=== PATIENT | female | born 1955 | race Caucasian/White ===

== ENCOUNTER 2022-11-17 09:19 | Outpatient (OUT) | payer MEDICARE, SELFPAY ==
--- NOTE | 2022-11-17 09:45 | CT_ITS ---
[address] [address] Patient Name: NATASHA BUNN MRN: [id number] date: 1955 Sex: F Assigned Patient Location: CT Current Patient Location: CT Accession/Order Number: [id number] Exam Date: 11/17/2022 09:40 Report Date: 11/17/2022 10:29 At the request of: BERLIN DERAS Procedure: CT lung screening low-dose EXAMINATION: CT lung screening low-dose HISTORY: Personal History Of Nicotine Dependence Z87.891 COMPARISON: No relevant comparison available. TECHNIQUE: Axial, Coronal, and Sagittal images were created without the administration of IV contrast material. Dose reduction techniques were achieved by using automated exposure control and/or adjustment of mA and/or kV according to patient size and/or use of iterative reconstruction technique. FINDINGS: LUNGS: Numerous small geographic shaped opacities scattered within bilateral lower lobe; nodules versus infiltrates; largest is within right lower lobe posterior segment, 11 mm. PLEURA: No mass, effusion, or pneumothorax. VASCULATURE: No abnormality. MIKE: No mass or pathologic adenopathy. MEDIASTINUM: No mass or pathologic adenopathy. CARDIAC: No enlargement, pericardial thickening, or significant calcification. AORTA: No aneurysm or dissection. CHEST WALL: No mass or axillary adenopathy BONES: No bone lesion or fracture. LIMITED ABDOMEN: Prior gastric surgery. Limited images of the upper abdomen. OTHER: Negative. CT/CT lung screening low-dose IMPRESSION: 1. Lung-RADS Category 3- Probably benign. Probably benign finding(s)- short term follow up suggested; includes nodules with a low likelihood of becoming a clinically active cancer. Six month LDCT. 2. Numerous small opacities within lower lobes which may represent infectious infiltrates, but neoplasm cannot be excluded. Consider follow-up CT chest in one-2 months to document clearing if clinical symptoms are suspicious for infectious infiltrates. The majority of the opacities are below limits for PET imaging, however, the larger opacities would be amenable to PET imaging if high clinical suspicion. Electronically authenticated by: AMANDA NAGEL Date: 11/17/2022 10:29
== END 2022-11-17 09:20 | disposition home or self-care (01) ==
LOC: CT 09:19
PROVIDERS: PCP Family Medicine; Visit Provider Internal Medicine
DX: Z87.891 Personal history of nicotine dependence (principal); Z12.2 Encounter for screening for malignant neoplasm of respiratory organs
CPT/HCPCS: 71271

== ENCOUNTER 2023-01-22 09:53 | Outpatient (OUT) | payer MEDICARE, SELFPAY ==
--- NOTE | 2023-01-22 10:08 | CT_ITS ---
[address] [address] Patient Name: NATASHA BUNN MRN: [id number] date: 1955 Sex: F Assigned Patient Location: CT Current Patient Location: Accession/Order Number: [id number] Exam Date: 01/22/2023 10:13 Report Date: 01/23/2023 00:29 At the request of: BERLIN DERAS Procedure: CT chest wo con EXAMINATION: CT chest wo con HISTORY: Multiple Pulmonary R91.8 follow-up COMPARISON: CT lung cancer screening 11/17/2022 TECHNIQUE: Multi-planar CT images were obtained without and/or with IV contrast as indicated by examination type. Axial, Coronal, and Sagittal images. Dose reduction techniques were achieved by using automated exposure control and/or adjustment of mA and/or kV according to patient size and/or use of iterative reconstruction technique. FINDINGS: LUNGS: Clearing of previously seen patchy opacities/infiltrates bilaterally. No suspicious nodules. Biapical pleural scarring. PLEURA: No mass, effusion, or pneumothorax. VASCULATURE: No abnormality. MIKE: No mass or adenopathy. MEDIASTINUM: No mass or adenopathy. CARDIAC: No enlargement, pericardial thickening, or significant calcification. AORTA: No aneurysm or dissection. CHEST WALL: No mass or axillary adenopathy. BONES: No bone lesion or fracture. LIMITED ABDOMEN: Prior gastric surgery. Limited images of the upper abdomen. OTHER: Negative. CT/CT chest wo con IMPRESSION: 1. Clearing of previously seen bilateral pulmonary opacities suggesting prior infectious etiology. 2. No suspicious nodules. Consider follow-up CT lung cancer screening in one year. Electronically authenticated by: AMANDA NAGEL Date: 01/23/2023 00:29
== END 2023-01-22 09:54 | disposition home or self-care (01) ==
LOC: CT 09:53
PROVIDERS: PCP Family Medicine; Visit Provider Internal Medicine
DX: R91.8 Other nonspecific abnormal finding of lung field (principal); Z87.891 Personal history of nicotine dependence
CPT/HCPCS: 71250

== ENCOUNTER 2023-10-17 14:29 | Outpatient (OUT) | payer MEDICARE, SELFPAY ==
--- NOTE | 2023-10-17 | XR_ITS ---
The [address] [address] Patient Name: NATASHA BUNN MRN: [id number] date: 1955 Sex: F Assigned Patient Location: Current Patient Location: Accession/Order Number: [id number] Exam Date: 10/17/2023 14:30 Report Date: 10/18/2023 07:32 At the request of: LETTY FRAZIER Procedure: XR foot LT min 3V PROCEDURE: XR foot LT min 3V COMPARISON: 10/09/2023 HISTORY: LEFT FOOT PAIN FINDINGS: BONES:Again demonstrated are transverse extra-articular fractures proximal diaphysis of the second and third metatarsals. Focal sclerosis identified in the neck of the second metatarsal with a narrow zone of transition no cortical breakthrough or periosteal reaction. SOFT TISSUES:Negative. No visible soft tissue swelling. EFFUSION:None visible. OTHER: Negative. XR/XR foot LT min 3V IMPRESSION: Stable nondisplaced nonangulated extra-articular transverse fractures base of the second and third metatarsals Electronically authenticated by: SRAVANI SAWYER Date: 10/18/2023 07:32
== END 2023-10-17 14:30 | disposition home or self-care (01) ==
LOC: EC 14:29
PROVIDERS: PCP Family Medicine; Visit Provider Podiatrist Foot & Ankle Surgery
DX: M79.672 Pain in left foot (principal); S92.325D Nondisplaced fracture of second metatarsal bone, left foot, subsequent encounter for fracture with routine healing; S92.335D Nondisplaced fracture of third metatarsal bone, left foot, subsequent encounter for fracture with routine healing
CPT/HCPCS: 73630

== ENCOUNTER 2023-11-06 10:00 | Outpatient (OUT) | payer MEDICARE, SELFPAY ==
--- NOTE | 2023-11-06 | XR_ITS ---
[address] [address] Patient Name: NATASHA BUNN MRN: [id number] date: 1955 Sex: F Assigned Patient Location: Current Patient Location: Accession/Order Number: [id number] Exam Date: 11/06/2023 10:33 Report Date: 11/06/2023 15:35 At the request of: LETTY FRAZIER Procedure: XR ankle LT min 3V PROCEDURE: XR ankle LT min 3V, XR foot LT min 3V COMPARISON:10/17/23, 10/09/2023 HISTORY: LEFT ANKLE PAIN FINDINGS: BONES:Stable fracture of the distal fibula with partial bony bridging. No change in angulation or distraction. Stable healing transverse extra-articular fractures base of the second and third metatarsals with interval healing evidenced by bone formation. Focal sclerosis in the medial neck of the second metatarsal is stable with no cortical breakthrough. SOFT TISSUES:Negative. No visible soft tissue swelling. EFFUSION:None visible. OTHER: Negative. XR/XR ankle LT min 3V IMPRESSION: Stable healing fractures of the distal fibula and base of the second and third metatarsals Electronically authenticated by: SRAVANI SAWYER Date: 11/06/2023 15:35
--- NOTE | 2023-11-06 | XR_ITS ---
[address] [address] Patient Name: NATASHA BUNN MRN: [id number] date: 1955 Sex: F Assigned Patient Location: Current Patient Location: Accession/Order Number: [id number] Exam Date: 11/06/2023 10:25 Report Date: 11/06/2023 15:35 At the request of: LETTY FRAZIER Procedure: XR foot LT min 3V PROCEDURE: XR ankle LT min 3V, XR foot LT min 3V COMPARISON:10/17/23, 10/09/2023 HISTORY: LEFT ANKLE PAIN FINDINGS: BONES:Stable fracture of the distal fibula with partial bony bridging. No change in angulation or distraction. Stable healing transverse extra-articular fractures base of the second and third metatarsals with interval healing evidenced by bone formation. Focal sclerosis in the medial neck of the second metatarsal is stable with no cortical breakthrough. SOFT TISSUES:Negative. No visible soft tissue swelling. EFFUSION:None visible. OTHER: Negative. XR/XR foot LT min 3V IMPRESSION: Stable healing fractures of the distal fibula and base of the second and third metatarsals Electronically authenticated by: SRAVANI SAWYER Date: 11/06/2023 15:35
--- OUTSIDE RECORDS SUMMARY | 2023-11-06 10:09 | XMS_ITS | CCD ---
Author Organization [facility] Clini[facility] Care Team Providers Care Die Cast Patternmaker Name Role Phone Linette Desai Primary Care Provider Unavailable Unavailable Unavailable Linette Desai DO Primary Care Provider [phone] BERLIN DERAS Attending Unavailable BERLIN DERAS Consulting Unavailable BERLIN DERAS Admitting Unavailable DR SRAVANI GAMEZ Primary Care Unavailable Linette Desai DO Primary Care Provider [phone] Linette Desai DO Primary Care Provider [phone] Linette Desai DO Primary Care Provider Rick Amin MD Primary Care Provider RICK AMIN Primary Care Unavailable AHMAD, ALI F O Referring Unavailable LINETTE DESAI Primary Care Unavailable LINETTE DESAI Referring Unavailable CONSDORYS, JOSE ANGEL Tommie Referring Unavailable AMIN, RICK Primary Care Unavailable AMIN, RICK Primary Care Unavailable AHMAD, ALI F O Referring Unavailable AMIN, RICK Primary Care Unavailable AHMAD, ALI F O Referring Unavailable CONSOLO, JOSE ANGEL W Referring Unavailable AMIN, RICK Primary Care Unavailable CONSOLO, JOSE ANGEL W Referring Unavailable AMIN, RICK Primary Care Unavailable CONSOLO, JOSE ANGEL W Referring Unavailable AMIN, RICK Primary Care Unavailable AMIN, RICK Primary Care Unavailable AHMAD, ALI F O Referring Unavailable AMIN, RICK Primary Care Unavailable AMIN, RICK Referring Unavailable CONSOLO, JOSE ANGEL W Referring Unavailable AMIN, RICK Primary Care Unavailable CONSOLO, JOSE ANGEL W Referring Unavailable AMIN, RICK Primary Care Unavailable AMIN, RICK Primary Care Unavailable AHMAD, ALI F O Referring Unavailable RUSSELL HOBSON Admitting Unavailable RUSSELL HOBSON Attending Unavailable LINETTE DESAI Primary Care Unavailable RUSS BERGERON Attending Unavailable LINETTE DESAI Primary Care Unavailable ELOISARICK Primary Care Unavailable DEL BALDWIN Referring Unavailable RICK AMIN Primary Care Unavailable MONIQUE PAZ Referring Unavailable LINETTE DESAI Primary Care Unavailable LINETTE DESAI Referring Unavailable Allergies Allergy Classification Reported Allergen(s) Allergy Type Date of Onset Reaction(s) Facility denosumab (3 sources) denosumab Drug Allergy 9 Other (See Comments) [facility] Macrolides (antibiotic) (3 sources) Azithromycin Drug Allergy 9 [facility] zoledronic acid (3 sources) zoledronic acid Drug Allergy 9 Other (See Comments) [facility] (20 sources) Azithromycin Drug Allergy 9 [place], [place] (20 sources) denosumab Drug Allergy 9 Other (See Comments) [place] (20 sources) zoledronic acid Drug Allergy 9 Other (See Comments) [place] (1 source) Azithromycin Drug Allergy 9 [facility] (1 source) denosumab Drug Allergy 0 [facility] (1 source) zoledronic acid Drug Allergy 1 [facility] Medications Current Medications Medication Drug Class(es) Dates Sig (Normalized) Sig (Original) acetaminophen 300 mg / butalbital 50 mg / caffeine 40 mg oral capsule (20 sources) Barbiturate, Central Nervous System Stimulant, Methylxanthine Start: 09-05-2023 take 1 capsule by mouth every eight hours Butalbital-Aceta minophen-Caff (Fioricet) 50-300-40 mg capsule Active 1 CAP PO Every 8 hours September 05, 2023 12:00am take 1 tablet by bandar th every four hours as needed for headache gfnitduopv-qyrnabyhzzlbk-qxurqtyu (JEROD CET, ESGIC) 50-325-40 MG per tablet Take 1 tablet by mouth every 4 hours as needed for Headaches 0 Active acetaminophen 325 mg / HYDROcodone bitartrate 5 mg oral tablet (20 sources) Opioid Agonist Start: 10-10-2021 take 1 tablet by mouth twice daily as needed for pain HYDROcodone-acetaminophen (NORCO) 5-325 MG per tablet Take 1 tablet by mouth 2 times daily as needed for Pain. 0 10/10/2021 Active Start: 10-10-2021 HYDROcodone-ac etaminophen (NORCO) 5-325 MG per tablet take 1 tablet by bandar th every six hours as needed for pain HYDROcodone-acetaminophen (NORCO) 5-325 MG per tablet Take 1 tablet by mouth every 6 hours as needed for Pain. 0 Active [id number] 200 actuat albuterol 0.09 mg/actuat metered dose inhaler (20 sources) beta2-Adrenergic Agonist take 2 puff(s) by inhalation every six hours as needed for wheezing albuterol sulfate HFA (PROVENTIL;VENTOLIN;PROAIR) 108 (90 Base) MCG/ACT inhaler Inhale 2 puffs into the lungs every 6 hours as needed for Wheezing 0 Active take 2 puff(s) by in halation every six hours as needed for wheezing albuterol sulfate HFA (PROAIR HFA) 108 (90 Base) MCG/ACT inhaler Inhale 2 puffs into the lungs every 6 hours as needed for Wheezing 0 Active alendronic acid 70 mg oral tablet (17 sources) Bisphosphonate Start: 09-05-2023 take 1 tablet by mouth every week Alendronate (Fosamax) 70 mg tablet Active 70 MG PO every week September 05, 2023 12:00am alendronate (FOS AMAX) 70 MG tablet Take 1 tablet by mouth every 7 days Mondays 0 Active amitriptyline hydrochloride 50 mg oral tablet (20 sources) Tricyclic Antidepressant Start: 09-04-2018 take 1 tablet by mouth once daily amitriptyline (ELAVIL) 50 MG tablet Take 1 tablet by mouth nightly 0 09/04/2018 Active atorvastatin 10 mg oral tablet (14 sources) HMG-CoA Reductase Inhibitor Start: 07-08-2018 atorvastatin (LIPITOR) 10 MG tablet betamethasone 0.5 mg/ml / clotrimazole 10 mg/ml topical cream (15 sources) Azole Antifungal, Corticosteroid Start: 09-09-2021 clotrimazole-betame thasone (LOTRISONE) 1-0.05 % cream cholecalciferol 0.125 mg oral capsule (1 source) Vitamin D Start: 09-05-2023 take 125 ug by mouth once daily Cholecalciferol (Vitamin D3) Active 125 MCG PO Daily September 05, 2023 12:00am cyclobenzaprine hydrochloride 10 mg oral tablet (20 sources) Muscle Relaxant Start: 08-10-2018 take 1 tablet by mouth once daily cyclobenzaprine (FLEXERIL) 10 MG tablet Take 1 tablet by mouth daily 0 08/10/2018 Active DULoxetine 60 mg delayed release oral capsule (20 sources) Serotonin and Norepinephrine Reuptake Inhibitor Start: 09-05-2023 take 1 capsule by mouth once daily Duloxetine (Cymbalta) 60 mg capsule,delayed release(DR/EC) Active 60 MG PO Daily September 05, 2023 12:00am take 1 capsule by mouth once michaela ly DULoxetine (CYMBALTA) 20 MG extended release capsule Take 1 capsule by mouth daily 0 Active ergocalciferol 1.25 mg oral capsule (20 sources) Provitamin D2 Compound take 1 capsule by mouth every other week vitamin D (ERGOCALCIFEROL) 80744 UNITS CAPS capsule Take 1 capsule by mouth Ever 2 weeks 0 Active escitalopram 10 mg oral tablet (4 sources) Serotonin Reuptake Inhibitor Start: take 1 tablet by mouth once daily escitalopram (LEXAPRO) 10 MG tablet Take 1 tablet by mouth daily 90 tablet 1 10/03/2023 Active fluticasone propionate 0.05 mg/actuat metered dose nasal spray (1 source) Corticosteroid Start: take 1 spray(s) nasal route once daily Fluticasone Propionate (Flonase Allergy Relief) 50 mcg/actuation spray,suspension Active 1 SPRAY INTRANASAL Daily September 05, 2023 12:00am administer into each nostril gabapentin 300 mg oral capsule (19 sources) Anti-epileptic Agent Start: End: take 300 mg by mouth three times daily Gabapentin Active 300 MG PO Three times daily September 05, 2023 12:00am montelukast 10 mg oral tablet (7 sources) Leukotriene Receptor Antagonist take 1 tablet by mouth once daily montelukast (SINGULAIR) 10 MG tablet Take 10 mg by mouth daily 0 Active omeprazole 20 mg delayed release oral capsule (20 sources) Proton Pump Inhibitor Start: take 20 mg by mouth once daily Omeprazole Active 20 MG PO Daily September 05, 2023 12:00am omeprazole (PRIL OSEC) 20 MG capsule Indications: Pt states she takes it as needed Take 1 capsule by mouth as needed Indications: Pt states she takes it as needed 0 Active Sod Citrate-Citric Acid (CYTRA-2 PO) (4 sources) Sod Citrate-Citr ic Acid (CYTRA-2 PO) Take 20 mg by mouth daily. 0 Active SUMAtriptan 50 mg oral tablet (20 sources) Serotonin-1b and Serotonin-1d Receptor Agonist Start: 09-05-2023 Sumatriptan Succinate Active 50 MG PO Every 2 hours September 05, 2023 12:00am do not exceed 4 doses per 24 hrs Start: 01-02-2023 take 1 tablet by bandar th twice daily as needed SUMAtriptan (IMITREX) 50 MG tablet Take 1 tablet by mouth 2 times daily as needed 0 01/02/2023 Active take 1 tablet by bandar th once as needed SUMAtriptan (IMITREX) 100 MG tablet Take 100 mg by mouth once as needed for Migraine 0 Active 30 actuat umeclidinium 0.0625 mg/actuat / vilanterol 0.025 mg/actuat dry powder inhaler (9 sources) Anticholinergic, beta2-Adrenergic Agonist Start: 09-29-2022 take 1 puff(s) by inhalation once daily ANORO ELLIPTA 62.5-25 MCG/ACT inhaler Inhale 1 puff into the lungs daily 0 09/29/2022 Active Start: 09-29-2022 ANORO ELLIPTA 62.5-25 MCG/ACT inhaler Vitamin B 12 (20 sources) Vitamin B12 Cyanocobalamin ( VITAMIN B-12 IJ) Inject as directed every 30 days. 0 Active Completed/Discontinued Medications Medication Drug Class(es) Dates Sig (Normalized) Sig (Original) regadenoson (LEXISCAN) injection 0.4 mg (1 source) Start: 10-01-2023 End: 10-01-2023 regadenoson (LEXISCAN) injection 0.4 mg 50 ml sodium chloride 9 mg/ml injection (1 source) Start: 08-21-2023 End: 08-21-2023 sodium chloride 0.9 % bolus 1,000 mL Problems Active Problems Problem Classification Problem Date Documented Da te Episodic/Chronic Asthma (2 sources) Unspecified asthma, uncomplicated; Translations: [Unspecified asthma, uncomplicated] Onset: 02-27-2023 Chronic Cardiac dysrhythmias (4 sources) Tachycardia; Translations: [Tachycardia, unspecified] Onset: 10-02-2023 Episodic Conditions associated with dizziness or vertigo (6 sources) Lightheadedness; Translations: [Dizziness and giddiness] Onset: 10-02-2023 08-21-2023 Episodic Disorders of lipid metabolism (2 sources) Hyperlipidemia, unspecified; Translations: [Hyperlipidemia, unspecified] Onset: 07-13-2023 Chronic E Codes: Fall (2 sources) Fall; Translations: [Unspecified fall, initial encounter] Onset: 08-21-2023 08-21-2023 Episodic Essential hypertension (2 sources) Essential (primary) hypertension; Translations: [Essential (primary) hypertension] Onset: 07-13-2023 Chronic Fluid and electrolyte disorders (2 sources) Dehydration; Translations: [Dehydration] Onset: 08-21-2023 08-21-2023 Episodic Fracture of lower limb (6 sources) Closed fracture of left ankle; Translations: [Other fracture of left lower leg, initial encounter for closed fracture] Onset: 08-21-2023 08-21-2023 Episodic Immunizations and screening for infectious disease (1 source) Encounter for immunization; Translations: [Encounter For Immunization] Onset: 06-16-2020 Episodic Osteoporosis (3 sources) Osteoporosis; Translations: [Age-related osteoporosis without current pathological fracture] Onset: 09-19-2023 09-05-2023 Chronic Other gastrointestinal disorders (20 sources) Intestinal malabsorption; Translations: [Intestinal malabsorption, unspecified] Onset: 09-06-2018 09-06-2018 Chronic Other gastrointestinal disorders (1 source) Malabsorption syndrome; Translations: [Other intestinal malabsorption] Chronic Other injuries and conditions due to external causes (3 sources) Fracture of bone; Translations: [Unspecified multiple injuries, initial encounter] 09-17-2023 Episodic Other injuries and conditions due to external causes (1 source) Other injury of unspecified body region, initial encounter; Translations: [Other injury of unspecified body region, initial encounter] Onset: 10-09-2023 Episodic Other injuries and conditions due to external causes (1 source) Unspecified multiple injuries, initial encounter; Translations: [Unspecified multiple injuries, initial encounter] Onset: 09-17-2023 Episodic Other lower respiratory disease (3 sources) Dyspnea; Translations: [Dyspnea, unspecified] Episodic Other lower respiratory disease (5 sources) Shortness of breath; Translations: [SHORTNESS OF BREATH] Onset: 04-13-2021 Episodic Other screening for suspected conditions (not mental disorders or infectious disease) (4 sources) Liver function tests abnormal; Translations: [Abnormal results of liver function studies] Onset: 10-02-2023 Episodic Residual codes; unclassified (2 sources) FH: premature coronary heart disease; Translations: [Family history of ischemic heart disease and other diseases of the circulatory system] 09-25-2023 Episodic Residual codes; unclassified (1 source) Family history of ischemic heart disease and other diseases of the circulatory system; Translations: [Family history of ischemic heart disease and other diseases of the circulatory system] Onset: 10-02-2023 Episodic Screening and history of mental health and substance abuse codes (3 sources) Ex-smoker; Translations: [Personal history of nicotine dependence] Onset: 10-02-2023 09-25-2023 Episodic Thyroid disorders (2 sources) Nontoxic single thyroid nodule; Translations: [Nontoxic single thyroid nodule] Onset: 07-13-2023 Chronic Unclassified (2 sources) Fracture Left Foot/Ankle; Translations: [Fracture Left Foot/Ankle] Onset: 10-09-2023 Past or Other Problems Problem Classification Problem Date Documented Da te Episodic/Chronic Acute and unspecified renal failure (9 sources) Acute renal failure syndrome; Translations: [Acute kidney failure, unspecified] Onset: 02-25-2023 02-25-2023 Episodic Deficiency and other anemia (20 sources) Microcytic anemia; Translations: [Iron deficiency anemia, unspecified] Onset: 09-06-2018 09-06-2018 Episodic Deficiency and other anemia (20 sources) Iron deficiency anemia secondary to inadequate dietary iron intake; Translations: [Other iron deficiency anemias] Onset: 09-06-2018 09-06-2018 Episodic Deficiency and other anemia (1 source) Other iron deficiency anemias; Translations: [Other iron deficiency anemias] Onset: 09-06-2018 Episodic Deficiency and other anemia (2 sources) Anemia, unspecified; Translations: [Anemia, unspecified] Onset: 02-27-2023 Episodic Other non-traumatic joint disorders (2 sources) Shoulder pain; Translations: [Shoulder Pain] Onset: 12-03-2023 Episodic Syncope (11 sources) Syncope and collapse; Translations: [Syncope and collapse] Onset: 02-25-2023 02-25-2023 Episodic Results Test Name Value Interpretation Reference Range Facility No Panel Informationon 10-10 EXAMINATION: THREE XRAY VIEWS OF THE LEFT ANKLE; THREE XRAY VIEWS OF THE LEFT FOOT 10/09/2023 9:57 am COMPARISON: 08/19/2023, 09/16/2025 HISTORY: ORDERING SYSTEM PROVIDED HISTORY: Fracture 67-year-old female; rule out fracture FINDINGS: Left ankle: Overlying casting/splint material limits evaluation of fine osseous detail. Slightly displaced distal fibular metaphyseal fracture. Fracture line persists without significant osseous bridging. No significant change in alignment. Ankle mortise appears intact. No tibiotalar effusion. Mild plantar calcaneal spur. Mild distal Achilles enthesopathy. Diffuse osteopenia. Mild degenerative changes of the midfoot. Left foot: Exam is limited by overlying splint material. Nondisplaced fractures of the proximal 2nd through 4th metatarsals. Fracture lines persist. No significant change in alignment. No marginal erosions. Nondisplaced fracture of the distal fibular diaphysis. Mild distal Achilles enthesopathy. Mild plantar calcaneal spur. Stable sclerosis at the distal 2nd metatarsal neck. [facility] R[facility] CONSOLIDATED Mateo May MD - 10/11/2023 EXAMINATION: THREE XRAY VIEWS OF THE LEFT ANKLE; THREE XRAY VIEWS OF THE LEFT FOOT 10/09/2023 9:57 am COMPARISON: 08/19/2023, 09/16/2025 HISTORY: ORDERING SYSTEM PROVIDED HISTORY: Fracture 67-year-old female; rule out fracture FINDINGS: Left ankle: Overlying casting/splint material limits evaluation of fine osseous detail. Slightly displaced distal fibular metaphyseal fracture. Fracture line persists without significant osseous bridging. No significant change in alignment. Ankle mortise appears intact. No tibiotalar effusion. Mild plantar calcaneal spur. Mild distal Achilles enthesopathy. Diffuse osteopenia. Mild degenerative changes of the midfoot. Left foot: Exam is limited by overlying splint material. Nondisplaced fractures of the proximal 2nd through 4th metatarsals. Fracture lines persist. No significant change in alignment. No marginal erosions. Nondisplaced fracture of the distal fibular diaphysis. Mild distal Achilles enthesopathy. Mild plantar calcaneal spur. Stable sclerosis at the distal 2nd metatarsal neck. IMPRESSION: Left ankle: 1. Overlying casting/splint material limits evaluation of fine osseous detail. Fracture line persists without significant osseous bridging. 2. Slightly displaced distal fibular metaphyseal fracture. 3. Diffuse osteopenia. Mild degenerative changes as above. Mild plantar calcaneal spur. Left foot: 1. Overlying splint material limits evaluation of fine osseous detail. 2. Nondisplaced transverse fractures through the proximal 2nd through 4th metatarsals. Fracture lines persist without change in alignment. 3. Nondisplaced fracture of the distal fibular diaphysis. 4. Mild plantar calcaneal spur. Mild distal Achilles enthesopathy. 5. Stable sclerosis at the distal 2nd metatarsal. [facility] [employer] No Panel InformationOrdered By: Mateo May on 10-11-2023 [facility] [employer] Work Phone: XR ANKLE LEFT (MIN 3 VIEWS)o n 10-11-2023 XR ANKLE LEFT (MIN 3 VIEWS) EXAMINATION: THREE XRAY VIEWS OF THE LEFT ANKLE; THREE XRAY VIEWS OF THE LEFT FOOT 10/09/2023 9:57 am COMPARISON: 08/19/2023, 09/16/2025 HISTORY: ORDERING SYSTEM PROVIDED HISTORY: Fracture 67-year-old female; rule out fracture FINDINGS: Left ankle: Overlying casting/splint material limits evaluation of fine osseous detail. Slightly displaced distal fibular metaphyseal fracture. Fracture line persists without significant osseous bridging. No significant change in alignment. Ankle mortise appears intact. No tibiotalar effusion. Mild plantar calcaneal spur. Mild distal Achilles enthesopathy. Diffuse osteopenia. Mild degenerative changes of the midfoot. Left foot: Exam is limited by overlying splint material. Nondisplaced fractures of the proximal 2nd through 4th metatarsals. Fracture lines persist. No significant change in alignment. No marginal erosions. Nondisplaced fracture of the distal fibular diaphysis. Mild distal Achilles enthesopathy. Mild plantar calcaneal spur. Stable sclerosis at the distal 2nd metatarsal neck. IMPRESSION: Left ankle: 1. Overlying casting/splint material limits evaluation of fine osseous detail. Fracture line persists without significant osseous bridging. 2. Slightly displaced distal fibular metaphyseal fracture. 3. Diffuse osteopenia. Mild degenerative changes as above. Mild plantar calcaneal spur. Left foot: 1. Overlying splint material limits evaluation of fine osseous detail. 2. Nondisplaced transverse fractures through the proximal 2nd through 4th metatarsals. Fracture lines persist without change in alignment. 3. Nondisplaced fracture of the distal fibular diaphysis. 4. Mild plantar calcaneal spur. Mild distal Achilles enthesopathy. 5. Stable sclerosis at the distal 2nd metatarsal. Interpreted by: Mateo May MD Signed by: Mateo May MD 10/11/23 Final result Normal [facility] XR FOOT LEFT (MIN 3 VIEWS)on 10-11-2023 XR FOOT LEFT (MIN 3 VIEWS) EXAMINATION: THREE XRAY VIEWS OF THE LEFT ANKLE; THREE XRAY VIEWS OF THE LEFT FOOT 10/09/2023 9:57 am COMPARISON: 08/19/2023, 09/16/2025 HISTORY: ORDERING SYSTEM PROVIDED HISTORY: Fracture 67-year-old female; rule out fracture FINDINGS: Left ankle: Overlying casting/splint material limits evaluation of fine osseous detail. Slightly displaced distal fibular metaphyseal fracture. Fracture line persists without significant osseous bridging. No significant change in alignment. Ankle mortise appears intact. No tibiotalar effusion. Mild plantar calcaneal spur. Mild distal Achilles enthesopathy. Diffuse osteopenia. Mild degenerative changes of the midfoot. Left foot: Exam is limited by overlying splint material. Nondisplaced fractures of the proximal 2nd through 4th metatarsals. Fracture lines persist. No significant change in alignment. No marginal erosions. Nondisplaced fracture of the distal fibular diaphysis. Mild distal Achilles enthesopathy. Mild plantar calcaneal spur. Stable sclerosis at the distal 2nd metatarsal neck. IMPRESSION: Left ankle: 1. Overlying casting/splint material limits evaluation of fine osseous detail. Fracture line persists without significant osseous bridging. 2. Slightly displaced distal fibular metaphyseal fracture. 3. Diffuse osteopenia. Mild degenerative changes as above. Mild plantar calcaneal spur. Left foot: 1. Overlying splint material limits evaluation of fine osseous detail. 2. Nondisplaced transverse fractures through the proximal 2nd through 4th metatarsals. Fracture lines persist without change in alignment. 3. Nondisplaced fracture of the distal fibular diaphysis. 4. Mild plantar calcaneal spur. Mild distal Achilles enthesopathy. 5. Stable sclerosis at the distal 2nd metatarsal. Interpreted by: Mateo May MD Signed by: Mateo May MD 10/11/23 Final result Normal [facility] CBC with Auto Differentialon 10-09-2023 Basophils (Bld) [#/Vol] 0.12 10*3/uL [facility] Immature granulocytes (Bld) [#/Vol] [facility] Interpretation and review of laboratory results Abnormal [facility] Lymphocytes/100 WBC (Bld) 1.50 % [facility] Monocytes/100 WBC (Bld) 0.89 % [facility] Neutrophils/100 WBC (Bld) 61 % 36 - 65 % [facility] Nucleated RBC/100 WBC (Bld) [Ratio] 0.0 % 0.0 per 100 WBC [facility] Segmented neutrophils/100 WBC (Bld) 4.56 % [facility] WBC other (Bld) [#/Vol] 7.5 [facility] CBC with Diffon 10-09-2023 Basophils/100 WBC (Bld) 2 % Normal 0-2 [facility] Comment on above: Performed By: #### C DP #### [address] [place] [id number] ( Refuse Collector: Sravani Gordon MD #### MILTON MARTIN #### [place] [id number] Refuse Collector: Robi Veliz MD Eosinophils (Bld) [#/Vol] 0.38 10*3/uL Normal 0.00-0.44 [facility] Comment on above: Performed By: #### C DP #### [address] [place] [id number] Refuse Collector: Sravani Gordon MD #### MILTON MARTIN #### [place] [id number] Refuse Collector: Robi Veliz MD Eosinophils/100 WBC (Bld) 5 % High 1-4 [facility] Comment on above: Performed By: #### C DP #### [address] [place] [address] Refuse Collector: Sravani Gordon MD #### VERONICA, FERI #### [address] [id number] Refuse Collector: Robi Veliz MD Erythrocyte distribution width (RBC) [Ratio] 13.4 % Normal 11.8-14.4 [facility] Comment on above: Performed By: #### C DP #### [address] [place] [id number] Refuse Collector: Sravani Gordon MD #### VERONICA, FERI #### [address] [id number] Refuse Collector: Robi Veliz MD Hematocrit (Bld) [Volume fraction] 46.7 % Normal 36.3-47.1 [facility] Comment on above: Performed By: #### C DP #### [address] [place] [address] Refuse Collector: Sravani Gordon MD #### VERONICA, FERI #### [address] [phone] Refuse Collector: Robi Veliz MD Hemoglobin (Bld) [Mass/Vol] 14.9 g/dL Normal 11.9-15.1 [facility] Comment on above: Performed By: #### C DP #### [address] [place] [address] Refuse Collector: Sravani Gordon MD #### VERONICA, FERI #### [address] [id number] Refuse Collector: Robi Veliz MD Immature granulocytes/100 WBC (Bld) 0 % Normal 0 [facility] Comment on above: Performed By: #### C DP #### [facility] [address] [place] [address] Refuse Collector: Sravani Gordon MD #### VERONICA, FERI #### [address] [id number] Refuse Collector: Robi Veliz MD Lymphocytes/100 WBC (Bld) 20 % Low 24-43 [facility] Comment on above: Performed By: #### C DP #### [facility] [address] [place] [address] Refuse Collector: Sravani Gordon MD #### VERONICA, SREEDHARI #### [address] [phone] Refuse Collector: Robi Veliz MD MCH (RBC) [Entitic mass] 29.9 pg Normal 25.2-33.5 [facility] Comment on above: Performed By: #### C DP #### [facility] [address] [place] [address] Refuse Collector: Sravani Gordon MD #### VERONICA, FERI #### [address] [phone] Refuse Collector: Robi Veliz MD MCHC (RBC) [Mass/Vol] 31.9 g/dL Normal 28.4-34.8 [facility] Comment on above: Performed By: #### C DP #### [facility] [address] [place] [address] [place] [address] Refuse Collector: Sravani Gordon MD #### VERONICA, FERI #### [address] [phone] Refuse Collector: Robi Veliz MD MCV (RBC) [Entitic vol] 93.6 fL Normal 82.6-102.9 [facility] Comment on above: Performed By: #### C DP #### [facility] [address] [place], [place] [phone] Refuse Collector: Sravani Gordon MD #### VERONICA, FERI #### [address] [phone] Refuse Collector: Robi Veliz MD Monocytes/100 WBC (Bld) 12 % Normal 3-12 [facility] Comment on above: Performed By: #### C DP #### [facility] [address] [place] [address] [address]. [place], [place] [phone] Refuse Collector: Sravani Gordon MD #### VERONICA, SREEDHARI #### [address] [id number] Refuse Collector: Robi Veliz MD Platelet mean volume (Bld) [Entitic vol] 10.5 fL Normal 8.1-13.5 [facility] Comment on above: Performed By: #### C DP #### [address] [place], [place] [id number] Refuse Collector: Sravani Gordon MD #### VERONICA, FERI #### [address] [phone] Refuse Collector: Robi Veliz MD Platelets (Bld) [#/Vol] 389 10*3/uL Normal 138-453 [facility] Comment on above: Performed By: #### C DP #### [address] [place], [place] [phone] Refuse Collector: Sravani Gordon MD #### VERONICA, FERI #### [address] [id number] Refuse Collector: Robi Veliz MD RBC (Bld) [#/Vol] 4.99 10*6/uL Normal 3.95-5.11 [facility] Comment on above: Performed By: #### C DP #### [facility] [address] [place] [address] [place], [place] [phone] Refuse Collector: Sravani Gordon MD #### MILTON MARTIN #### [address] [phone] Refuse Collector: Robi Veliz MD Abs. Basophil 0.12 k/uL Normal 0.00-0.20 [facility] Comment on above: Performed By: #### C DP #### [facility] [address] [place] [address] Dr[place] [phone] Refuse Collector: Sravani Gordon MD #### MILTON MARTIN #### [address] [phone] Refuse Collector: Robi Veliz MD Abs.Imm.Granulocyte <0.03 Normal 0.00-0.30 [facility] Comment on above: Performed By: #### C DP #### [facility] [address] [place] [address] [place] [phone] Refuse Collector: Sravani Gordon MD #### MILTON MARTIN #### [address] [phone] Refuse Collector: Robi Veliz MD Abs.Neutrophil (Seg) 4.56 k/uL Normal 1.50-8.10 [facility] Comment on above: Performed By: #### C DP #### [address] [place] [phone] Refuse Collector: Sravani Gordon MD #### MILTON MARTIN #### [address] [phone] Refuse Collector: Robi Veliz MD Lymphocytes (Bld) [#/Vol] 1.50 10*3/uL Normal 1.10-3.70 [facility] Comment on above: Performed By: #### C DP #### [address] [place], [place] [phone] Refuse Collector: Sravani Gordon MD #### VERONICA, FERI #### [address] [phone] Refuse Collector: Robi Veliz MD Monocytes (Bld) [#/Vol] 0.89 10*3/uL Normal 0.10-1.20 [facility] Comment on above: Performed By: #### C DP #### [facility] [address] [place] [address] [address]. [place], [place] [phone] Refuse Collector: Sravani Gordon MD #### VERONICA, FERI #### [address] [phone] Refuse Collector: Robi Veliz MD Neutrophil (Seg) 61 % Normal 36-65 [facility] Comment on above: Performed By: #### C DP #### [address] [place], [place] [phone] Refuse Collector: Sravani Gordon MD #### VERONICA FERI #### [address] [id number] Refuse Collector: Robi Veliz MD NRBC Automated 0.0 per 100 WBC Normal 0.0 [facility] Comment on above: Performed By: #### C DP #### [address] [place] [phone] Refuse Collector: Sravani Gordon MD #### VERONICA FERI #### [address] [address] Refuse Collector: Robi Veliz MD WBC (Bld) [#/Vol] 7.5 10*3/uL Normal 3.5-11.3 [facility] Comment on above: Performed By: #### C DP #### [address] [place] [address] Refuse Collector: Sravani Gordon MD #### FEBC, FERI #### [place] 932662 [place], [place] [phone] Refuse Collector: Robi Veliz MD Ferritinon 10-09-2023 Ferritin [Mass/Vol] 23 ng/mL 13 - 150 ng/mL [facility] Comment on above: No reference range e stablished for this age/gender. Ferritin [Mass/Vol] 23 ng/mL Normal 13-150 [facility] Comment on above: Result Comment: No r eference range established for this age/gender. Performed By: #### C DP #### [facility] [address] [place] [address] [place] [address] Refuse Collector: Sravani Gordon MD #### VERONICA, FERI #### [address] [phone] Refuse Collector: Robi Veliz MD Iron Binding Cap.on 10-09-19 24 % Fe Saturation 18 % Low 20-55 [facility] Comment on above: Performed By: #### C DP #### [facility] [address] [place] [address] [place] [address] Refuse Collector: Sravani Gordon MD #### VERONICA, FERI #### [address] [phone] Refuse Collector: Robi Veliz MD Iron [Mass/Vol] 75 ug/dL Normal 37-145 [facility] Comment on above: Performed By: #### C DP #### [facility] [address] [place] [address] Refuse Collector: Sravani Gordon MD #### FEBC, FERI #### [address] [address] Refuse Collector: Robi Veliz MD Total Fe Binding Cap 417 ug/dL Normal 250-450 [facility] Comment on above: Performed By: #### C DP #### [facility] [address] [place], [place] [phone] Refuse Collector: Sravani Gordon MD #### FEBC, FERI #### [facility] [address] [place], [place] [phone] Refuse Collector: Robi Veliz MD Unbound Fe Bind Cap 342 ug/dL Normal 112-347 [facility] Comment on above: Performed By: #### C DP #### [facility] [address] [place], [place] [phone] Refuse Collector: Sravani Gordon MD #### FEBC, FERI #### [facility] [address] [place] [address] Refuse Collector: Robi Veliz MD Iron and TIBCon 10-09-2023 Interpretation and review of laboratory results Abnormal [facility] Iron [Mass/Vol] 75 ug/dL 37 - 145 ug/dL [facility] Iron binding capacity [Mass/Vol] 417 ug/dL 250 - 450 ug/dL [facility] Iron saturation [Mass fraction] 18 % Low 20 - 55 % [facility] UIBC 342 ug/dL 112 - 347 ug/dL [facility] No Panel Informationon 10-08 [facility] [employer] XR Ankle - left 3 Viewson Radiology Study observation (narrative) [facility] [employer] XR Foot - left 3 [facility] Radiology Study observation (narrative) [facility] No Panel InformationOrdered By: Mauricio Lawrence on 10-02-2023 Baseline Diastolic BP 80 mmHg [facility] Work Phone: Baseline HR 115 bpm [facility] [employer] Work Phone: Baseline Systolic BP 128 mmHg [facility] [employer] Work Phone: Nuc Stress EF 83 % [facility] [employer] Work Phone: Recovery Stage 1 BP 110/72 mmHg [facility] [employer] Work Phone: Recovery Stage 1 Duration 0 min:sec [facility] B[facility] [employer] Work Phone: Recovery Stage 1 HR 142 bpm [facility] S ECOARJUN [employer] Work Phone: Recovery Stage 2 Duration 1 min:sec [facility] [employer] Work Phone: Recovery Stage 2 HR 136 bpm [facility] [employer] Work Phone: Recovery Stage 3 BP 110/78 mmHg [facility] S ECOARJ[facility] [employer] Work Phone: Recovery Stage 3 Duration 3 min:sec [facility] B[facility] [employer] Work Phone: Recovery Stage 3 HR 126 bpm [facility] S ECOARJUN [employer] Work Phone: Recovery Stage 4 BP 122/68 mmHg [facility] S ECOARJUN [employer] Work Phone: Recovery Stage 4 Duration 5 min:sec [facility] SECFLAKITA [employer] Work Phone: Recovery Stage 4 HR 126 bpm [facility] S ECOARJ[facility] [employer] Work Phone: Stress Diastolic BP 72 mmHg [facility] S ECOARJUN [employer] Work Phone: Stress Peak HR 142 bpm [facility] SECVAZQUEZ S [employer] Work Phone: Stress Percent HR Achieved 93 % [facility] SECFLAKITA [employer] Work Phone: Stress Rate Pressure Product 74848 bpm*mmHg [facility] SECFLAK[facility] [employer] Work Phone: Stress Systolic BP 110 mmHg [facility] SE COURS [employer] Work Phone: Stress Target HR 153 bpm [facility] SECO URS [employer] Work Phone: [facility] SECFLAKITA [employer] Work Phone: No Panel Informationon 10-01 Stress Combined Conclusion: The study is negative for myocardial ischemia. Findings suggest a low risk of cardiac events. Stress Function: Left ventricular function post-stress is normal. Post-stress ejection fraction is 83%. The stress end diastolic cavity size is normal. Perfusion Defect: There is a mild severity left ventricular stress perfusion defect that is small in size present in the apex segment(s) that is predominantly fixed. This defect was visualized during the stress and rest phases of imaging. The defect appears to be an artifact caused by soft tissue. Perfusion Conclusion: There is no evidence of transient ischemic dilation (TID). Image quality is excellent. ECG: Resting ECG demonstrates sinus tachycardia. Stress Test: A pharmacological stress test was performed using regadenoson (Lexiscan). Blood pressure demonstrated a normal response and heart rate demonstrated a normal response to stress. The patient's heart rate recovery was normal. Stress ECG: There were no arrhythmias during stress. No significant ST changes noted. There were no noted arrhythmias during recovery. Overall, these cardiac imaging results are most consistent with a low risk for significant coronary artery disease. Resting ECG The ECG shows sinus tachycardia. Stress Findings A pharmacological stress test was performed using regadenoson (Lexiscan). The patient reported dizziness and dyspnea during the stress test. The patient reached the end of the protocol. Blood pressure demonstrated a normal response and heart rate demonstrated a normal response to stress. The patient's heart rate recovery was normal. Stress ECG There were no arrhythmias during stress. No significant ST changes noted. There were no noted arrhythmias during recovery. Nuclear Study Quality Nuclear Cardiac SPECT gated stress then rest with tomographic imaging/tomography utilized for the myocardial perfusion procedure. Lexiscan was used as the stressing method and agent. (Lexiscan given via a 10 - 20 sec injection). Two day myocardial perfusion study (10/01/2023 and 10/02/2023). This Single Photon Emission Computer Tomography (SPECT) study utilized tomographic imaging/tomography for the tomographic myocardial perfusion imaging performed during this study. Overall image quality is excellent. There are no artifacts present. Perfusion Comments Prone images were obtained. Prone imaging was helpful in correcting soft tissue attenuation. Perfusion Defect There is a mild severity left ventricular stress perfusion defect that is small in size present in the apex segment(s) that is predominantly fixed. This defect was visualized during the stress and rest phases of imaging. The defect appears to be an artifact caused by soft tissue. Perfusion Defect Conclusion There is no evidence of transient ischemic dilation (TID). Stress Function Comments Left ventricular function post-stress is normal. Post-stress ejection fraction is 83%. The stress end diastolic cavity size is normal. Stress Combined Conclusion The study is negative for myocardial ischemia. Findings suggest a low risk of cardiac events. [facility] CV RPACS STRESS No Panel Informationon 09-30 Radiology Study observation (narrative) HUMAIRA DÍAZ [facility] DEXA BONE DENSITY AXIAL SKEL ETONon 09-19-2023 DEXA BONE DENSITY AXIAL SKELETON EXAMINATION: BONE DENSITOMETRY 09/19/2023 7:18 am TECHNIQUE: A bone density dual x-ray absorptiometry (DXA) scan was performed of the lumbar spine and left hip on a Globe[employer] system. COMPARISON: None. HISTORY: ORDERING SYSTEM PROVIDED HISTORY: Age-related osteoporosis without current pathological fracture Gender: F Age: 67 y/o FINDINGS: LUMBAR SPINE: L1-L4 BMD: 0.987 g/cm2 T-score: -1.6 Z-score: 0.3 LEFT TOTAL HIP: BMD: 0.742 g/cm2 T-score: -2.1 Z-score: -0.5 LEFT FEMORAL NECK: BMD: 0.712 g/cm2 T-score: -2.3 Z-score: -0.5 FRAX 10-YEAR PROBABILITY OF FRACTURE: 10-year fracture risk is performed using the [employer] FRAX calculator based on patient-reported risk factors. Major osteoporotic fracture: 20.0% Hip fracture: 4.5% Other situations known to alter the reliability of the FRAX score should be considered when making treatment decisions, including chronic glucocorticoid use and past treatments. Further guidance on treatment can be found at the National Osteoporosis Foundation's website bonesource.org. IMPRESSION: Osteopenia by WHO criteria. RECOMMENDATIONS: 1. All patients should optimize their calcium and vitamin D intake. 2. Consider FDA-approved medical therapies in postmenopausal women and men aged 50 years and older, based on the following: - A hip or vertebral (clinical or morphometric) fracture - T-score less than or equal to -2.5 at the femoral neck or spine after appropriate evaluation to exclude secondary causes - Low bone density (T-score between -1.0 and -2.5 at the femoral neck or spine) and a 10-year probability of a hip fracture greater than or equal to 3% or a 10-year probability of a major osteoporosis-related fracture greater than or equal to 20% based on FRAX calculation. - Clinician judgment and/or patient preferences may indicate treatment for people with 10-year fracture probabilities above or below these levels - Further guidance on treatment can be found at the National Osteoporosis Foundation's website bonesource.org. 3. Patients with diagnosis of osteoporosis or at high risk for fracture should have regular bone mineral density tests. For patients eligible for Medicare, routine testing is allowed once every 2 years. The testing frequency can be increased to one year for patients who have rapidly progressing disease, those who are receiving or discontinuing medical therapy to restore bone mass or have additional risk factors. Template code: [id number] Interpreted by: Jeet Hudson MD Signed by: Jeet Hudson MD 09/19/23 Final result Normal [facility] XR ANKLE LEFT (MIN 3 VIEWS)o n 09-18-2023 XR ANKLE LEFT (MIN 3 VIEWS) EXAMINATION: THREE XRAY VIEWS OF THE LEFT FOOT; THREE XRAY VIEWS OF THE LEFT ANKLE 09/17/2023 10:28 am; 09/17/2023 10:35 am COMPARISON: 08/21/2023 HISTORY: ORDERING SYSTEM PROVIDED HISTORY: Fractures FINDINGS: ANKLE: Oblique, mildly displaced fracture of the lateral malleolus. No periosteal reaction identified. Mortise alignment appears appropriate. Overlying splint material noted. FOOT: Overlying splint material. Redemonstration of transverse fractures through the base of the 2nd, 3rd and 4th metatarsals again demonstrated. No appreciable change in alignment. No periosteal reaction appreciated. No new osseous abnormality identified. IMPRESSION: 1. Oblique, mildly displaced fracture of the medial malleolus without appreciable change in alignment. 2. Nondisplaced transverse fractures through the base of the 2nd-4th metatarsals without appreciable change in alignment. Interpreted by: Bridger Alves MD Signed by: Bridger Alves MD 09/18/23 Final result Normal [facility] XR FOOT LEFT (MIN 3 VIEWS)on 09-18-2023 XR FOOT LEFT (MIN 3 VIEWS) EXAMINATION: THREE XRAY VIEWS OF THE LEFT FOOT; THREE XRAY VIEWS OF THE LEFT ANKLE 09/17/2023 10:28 am; 09/17/2023 10:35 am COMPARISON: 08/21/2023 HISTORY: ORDERING SYSTEM PROVIDED HISTORY: Fractures FINDINGS: ANKLE: Oblique, mildly displaced fracture of the lateral malleolus. No periosteal reaction identified. Mortise alignment appears appropriate. Overlying splint material noted. FOOT: Overlying splint material. Redemonstration of transverse fractures through the base of the 2nd, 3rd and 4th metatarsals again demonstrated. No appreciable change in alignment. No periosteal reaction appreciated. No new osseous abnormality identified. IMPRESSION: 1. Oblique, mildly displaced fracture of the medial malleolus without appreciable change in alignment. 2. Nondisplaced transverse fractures through the base of the 2nd-4th metatarsals without appreciable change in alignment. Interpreted by: Bridger Alves MD Signed by: Bridger Alves MD 09/18/23 Final result Normal [facility] XR Foot - left 3 Viewson 1. Oblique, mildly displaced fracture of the medial malleolus without appreciable change in alignment. 2. Nondisplaced transverse fractures through the base of the 2nd-4th metatarsals without appreciable change in alignment. [facility] EXAMINATION: THREE XRAY VIEWS OF THE LEFT FOOT; THREE XRAY VIEWS OF THE LEFT ANKLE 09/17/2023 10:28 am; 09/17/2023 10:35 am COMPARISON: 08/21/2023 HISTORY: ORDERING SYSTEM PROVIDED HISTORY: Fractures FINDINGS: ANKLE: Oblique, mildly displaced fracture of the lateral malleolus. No periosteal reaction identified. Mortise alignment appears appropriate. Overlying splint material noted. FOOT: Overlying splint material. Redemonstration of transverse fractures through the base of the 2nd, 3rd and 4th metatarsals again demonstrated. No appreciable change in alignment. No periosteal reaction appreciated. No new osseous abnormality identified. [facility] Bridger Alves MD - 09/18/2023 EXAMINATION: THREE XRAY VIEWS OF THE LEFT FOOT; THREE XRAY VIEWS OF THE LEFT ANKLE 09/17/2023 10:28 am; 09/17/2023 10:35 am COMPARISON: 08/21/2023 HISTORY: ORDERING SYSTEM PROVIDED HISTORY: Fractures FINDINGS: ANKLE: Oblique, mildly displaced fracture of the lateral malleolus. No periosteal reaction identified. Mortise alignment appears appropriate. Overlying splint material noted. FOOT: Overlying splint material. Redemonstration of transverse fractures through the base of the 2nd, 3rd and 4th metatarsals again demonstrated. No appreciable change in alignment. No periosteal reaction appreciated. No new osseous abnormality identified. IMPRESSION: 1. Oblique, mildly displaced fracture of the medial malleolus without appreciable change in alignment. 2. Nondisplaced transverse fractures through the base of the 2nd-4th metatarsals without appreciable change in alignment. [facility] XR Foot - left 3 ViewsOrdere d By: Bridger Alves on 09-18-2023 [facility] [employer] Work Phone: XR Foot - left 3 Viewson Radiology Study observation (narrative) [facility] CBC with Auto Differentialon 08-21-2023 Basophils (Bld) [#/Vol] 0.12 10*3/uL [facility] Basophils/100 WBC (Bld) 1 % 0 - 2 % [facility] Eosinophils (Bld) [#/Vol] 0.70 10*3/uL High [facility] Eosinophils/100 WBC (Bld) 9 % High 1 - 4 % [facility] Erythrocyte distribution width (RBC) [Ratio] 13.5 % 11.8 - 14.4 % [facility] Hematocrit (Bld) [Volume fraction] 43.2 % 36.3 - 47.1 % [facility] Hemoglobin (Bld) [Mass/Vol] 14.1 g/dL 11.9 - 15.1 g/dL [facility] Immature granulocytes (Bld) [#/Vol] [facility] Immature granulocytes/100 WBC (Bld) 0 % 0 [facility] Interpretation and review of laboratory results Abnormal [facility] Lymphocytes/100 WBC (Bld) 19 % Low 24 - 43 % [facility] Lymphocytes/100 WBC (Bld) 1.53 % [facility] MCH (RBC) [Entitic mass] 30.7 pg 25.2 - 33.5 pg [facility] MCHC (RBC) [Mass/Vol] 32.6 g/dL 28.4 - 34.8 g/dL [facility] MCV (RBC) [Entitic vol] 93.9 fL 82.6 - 102.9 fL [facility] Monocytes/100 WBC (Bld) 13 % High 3 - 12 % [facility] Monocytes/100 WBC (Bld) 1.11 % [facility] Neutrophils/100 WBC (Bld) 58 % 36 - 65 % [facility] Nucleated RBC/100 WBC (Bld) [Ratio] 0.0 % 0.0 per 100 WBC [facility] Platelet mean volume (Bld) [Entitic vol] 10.0 fL 8.1 - 13.5 fL [facility] Platelets (Bld) [#/Vol] 369 10*3/uL [facility] RBC (Bld) [#/Vol] 4.60 10*6/uL 3.95 - 5.1 1 m/uL [facility] Segmented neutrophils/100 WBC (Bld) 4.81 % [facility] WBC other (Bld) [#/Vol] 8.3 [facility] CBC with Diffon 08-21-2023 Abs. Basophil 0.12 k/uL Normal 0.00-0.20 [facility] Comment on above: Performed By: #### ROBERT NICKERSON, CP #### [facility] [address] [place] [address] Dr[place] [phone] Refuse Collector: Sravani Gordon MD Abs.Imm.Granulocyte <0.03 Normal 0.00-0.30 [facility] Comment on above: Performed By: #### ROBERT NICKERSON, CP #### [address] [place] [phone] Refuse Collector: Sravani Gordon MD Abs.Neutrophil (Seg) 4.81 k/uL Normal 1.50-8.10 [facility] Comment on above: Performed By: #### ROBERT NICKERSON, CP #### [address] [place] [phone] Refuse Collector: Sravani Gordon MD Basophils/100 WBC (Bld) 1 % Normal 0-2 [facility] Comment on above: Performed By: #### ROBERT NICKERSON, CP #### [address] [place] [phone] Refuse Collector: Sravani Gordon MD Eosinophils (Bld) [#/Vol] 0.70 10*3/uL High 0.00-0.44 [facility] Comment on above: Performed By: #### T ROBERT WILLIAMSON, CP #### [address] [place], [place] [phone] Refuse Collector: Sravani Gordon MD Eosinophils/100 WBC (Bld) 9 % High 1-4 [facility] Comment on above: Performed By: #### ROBERT NICKERSON, CP #### [address] [place], [facility] Refuse Collector: Sravani Gordon MD Erythrocyte distribution width (RBC) [Ratio] 13.5 % Normal 11.8-14.4 [facility] Comment on above: Performed By: #### ROBERT NICKERSON, CP #### [address] [place], [facility] Refuse Collector: Sravani Gordon MD Hematocrit (Bld) [Volume fraction] 43.2 % Normal 36.3-47.1 [facility] Comment on above: Performed By: #### ROBERT NICKERSON, CP #### [address] [place], [place] [phone] Refuse Collector: Sravani Gordon MD Hemoglobin (Bld) [Mass/Vol] 14.1 g/dL Normal 11.9-15.1 [facility] Comment on above: Performed By: #### ROBERT NICKERSON, CP #### [address] [place], [place] [phone] Refuse Collector: Sravani Gordon MD Immature granulocytes/100 WBC (Bld) 0 % Normal 0 [facility] Comment on above: Performed By: #### ROBERT NICKERSON, CP #### [address] [place], [place] [phone] Refuse Collector: Sravani Gordon MD Lymphocytes (Bld) [#/Vol] 1.53 10*3/uL Normal 1.10-3.70 [facility] Comment on above: Performed By: #### ROBERT NICKERSON, CP #### [address] [place], [place] [id number] Refuse Collector: Sravani Gordon MD Lymphocytes/100 WBC (Bld) 19 % Low 24-43 [facility] Comment on above: Performed By: #### ROBERT NICKERSON, CP #### [address] [place], [place] [id number] Refuse Collector: Sravani Gordon MD MCH (RBC) [Entitic mass] 30.7 pg Normal 25.2-33.5 [facility] Comment on above: Performed By: #### ROBERT NICKERSON, CP #### [address] [place], [place] [phone] Refuse Collector: Sravani Gordon MD MCHC (RBC) [Mass/Vol] 32.6 g/dL Normal 28.4-34.8 [facility] Comment on above: Performed By: #### ROBERT NICKERSON, CP #### [address] [place] [address] Refuse Collector: Sravani Gordon MD MCV (RBC) [Entitic vol] 93.9 fL Normal 82.6-102.9 [facility] Comment on above: Performed By: #### ROBERT NICKERSON, CP #### [address] [place], [place] [id number] Refuse Collector: Sravani Gordon MD Monocytes (Bld) [#/Vol] 1.11 10*3/uL Normal 0.10-1.20 [facility] Comment on above: Performed By: #### ROBERT NICKERSON, CP #### [address] [place] [address] Refuse Collector: Sravani Gordon MD Monocytes/100 WBC (Bld) 13 % High 3-12 M [facility] Comment on above: Performed By: #### T ROBERT WILLIAMSON, CP #### [facility] [address] [place], [place] [id number] Refuse Collector: Sravani Gordon MD Neutrophil (Seg) 58 % Normal 36-65 [facility] Comment on above: Performed By: #### T ROBERT WILLIAMSON, CP #### [facility] [address] [place], [place] [id number] Refuse Collector: Sravani Gordon MD NRBC Automated 0.0 per 100 WBC Normal 0.0 [facility] Comment on above: Performed By: #### ROBERT NICKERSON, CP #### [address] [place], [facility]83 Refuse Collector: Sravani Gordon MD Platelet mean volume (Bld) [Entitic vol] 10.0 fL Normal 8.1-13.5 [facility] Comment on above: Performed By: #### ROBERT NICKERSON, CP #### [address] [place], [place] [id number] Refuse Collector: Sravani Gordon MD Platelets (Bld) [#/Vol] 369 10*3/uL Normal 138-453 [facility] Comment on above: Performed By: #### ROBERT NICKERSON, CP #### [address] [place], [facility]83 Refuse Collector: Sravani Gordon MD RBC (Bld) [#/Vol] 4.60 10*6/uL Normal 3.95-5.11 [facility] Comment on above: Performed By: #### T ROBERT WILLIAMSON, CP #### [facility] [address] [place] [address] Refuse Collector: Sravani Gordon MD WBC (Bld) [#/Vol] 8.3 10*3/uL Normal 3.5-11.3 [facility] Comment on above: Performed By: #### T ROPTootie, CDP, CP #### [facility] [address] [place], [place] [id number] Refuse Collector: Sravani Gordon MD Comp Metabolic Profon 2023 Albumin [Mass/Vol] 4.1 g/dL Normal 3.5-5.2 [facility] Comment on above: Performed By: #### C DP #### [facility] [address] [place] [address] Refuse Collector: Sravani Gordon MD #### FEDESTINY, FERI #### [address] [place] [address] Refuse Collector: Robi Veliz MD Albumin/Glob Ratio 1.5 Normal 1.0-2.5 [facility] Comment on above: Performed By: #### C DP #### [address] [place], [facility]97 ( Refuse Collector: Sravani Gordon MD #### VERONICA, FERI #### [address] [address] Refuse Collector: Robi Veliz MD Alkaline Phos 109 U/L High 35-104 [facility] Comment on above: Performed By: #### C DP #### [address] [place], [facility]66 ( Refuse Collector: Sravani Gordon MD #### FEBC, FERI #### [address] [place] [address] Refuse Collector: Robi Veliz MD ALT [Catalytic activity/Vol] 12 U/L Normal 5-33 [facility] Comment on above: Performed By: #### C DP #### [address] [place] [address] Refuse Collector: Sravani Gordon MD #### VERONICA, FERI #### [facility] [address] [place] [address] Refuse Collector: Robi Veliz MD Anion gap [Moles/Vol] 13 mmol/L Normal 9-17 [facility] Comment on above: Performed By: #### C DP #### [facility] [address] [place], [place] 1132583 Refuse Collector: Sravani Gordon MD #### VERONICA, FERI #### [facility] [address] [place] [address] Refuse Collector: Robi Veliz MD AST [Catalytic activity/Vol] 13 U/L Normal <32 [facility] Comment on above: Performed By: #### C DP #### [facility] [address] [place], [place] [phone] Refuse Collector: Sravani Gordon MD #### MILTON MARTIN #### [address] [address] Refuse Collector: Robi Veliz MD Bilirubin [Mass/Vol] 0.2 mg/dL Low 0.3-1.2 [facility] Comment on above: Performed By: #### C DP #### [facility] [address] [place] [address] [address] [place], [place] [phone] Refuse Collector: Sravani Gordon MD #### SREEDHAR MARTINI #### [facility] [address] [place] [address] Refuse Collector: Robi Veliz MD BUN/CRE Ratio 17 Normal 9-20 [facility] Comment on above: Performed By: #### C DP #### [facility] [address] [place] [address] Refuse Collector: Sravani Gordon MD #### SREEDHAR MARTINI #### [address] [place] [address] Refuse Collector: Robi Veliz MD Calcium [Mass/Vol] 9.2 mg/dL Normal 8.6-10.4 [facility] Comment on above: Performed By: #### C DP #### [facility] [address] [place], [place] 9[address]3683 Refuse Collector: Sravani Gordon MD #### VERONICA, FERI #### [address] [phone] Refuse Collector: Robi Veliz MD Chloride [Moles/Vol] 104 mmol/L Normal 98-107 [facility] Comment on above: Performed By: #### C DP #### [facility] [address] [place] [address] [address] [place], [place] [phone] Refuse Collector: Sravani Gordon MD #### VERONICA, FERI #### [address] [id number] Refuse Collector: Robi Veliz MD CO2 [Moles/Vol] 23 mmol/L Normal 20-31 [facility] Comment on above: Performed By: #### C DP #### [address] [place], [place] 7282983 Refuse Collector: Sravani Gordon MD #### VERONICA, FERI #### [address] [address] Refuse Collector: Robi Veliz MD Creatinine [Mass/Vol] 1.0 mg/dL High 0.5-0.9 [facility] Comment on above: Performed By: #### C DP #### [facility] [address] [place], [place] 0126883 Refuse Collector: Sravani Gordon MD #### FEDESTINY, FERI #### [address] [address] Refuse Collector: Robi Veliz MD GFR/1.73 sq M.predicted among non-blacks MDRD (S/P/Bld) [Vol rate/Area] 62 mL/min/{1.73_m2} Normal >60 [facility] Comment on above: Result Comment: These results are not intended for use in patients <18 years of age. eGFR results are calculated without a race factor using the 2020 CKD-EPI equation. Careful clinical correlation is recommended, particularly when comparing to results calculated using previous equations. The CKD-EPI equation is less accurate in patients with extremes of muscle mass, extra-renal metabolism of creatine, excessive creatine ingestion, or following therapy that affects renal tubular secretion. Performed By: #### C DP #### [address] [place] [address] Refuse Collector: Sravani Gordon MD #### MILTON MARTIN #### [address] [id number] Refuse Collector: Robi Veliz MD Glucose [Mass/Vol] 102 mg/dL High 70-99 [facility] Comment on above: Performed By: #### C DP #### [address] [place], [place] [phone] Refuse Collector: Sravani Gordon MD #### MILTON MARTIN #### [address] [phone] Refuse Collector: Robi Veliz MD Potassium [Moles/Vol] 3.8 mmol/L Normal 3.7-5.3 [facility] Comment on above: Performed By: #### C DP #### [address] [place], [place] 0376083 Refuse Collector: Sravani Gordon MD #### MILTON MARTIN #### [address] [phone] Refuse Collector: Robi Veliz MD Protein [Mass/Vol] 6.9 g/dL Normal 6.4-8.3 [facility] Comment on above: Performed By: #### C DP #### [facility] [address] [place] [address] Refuse Collector: Sravani Gordon MD #### VERONICA, MILTON #### [facility] [address] [place], [place] [phone] Refuse Collector: Robi Veliz MD Sodium [Moles/Vol] 140 mmol/L Normal 135-144 [facility] Comment on above: Performed By: #### C DP #### [facility] [address] [place] [address] [place] [address] Refuse Collector: Sravani Gordon MD #### MILTON MARTIN #### [id number] [place], [place] [phone] Refuse Collector: Robi Veliz MD Urea nitrogen [Mass/Vol] 17 mg/dL Normal 8-23 [facility] Comment on above: Performed By: #### C DP #### [facility] [address] [place] [address] [place] [address] Refuse Collector: Sravani Gordon MD #### VERONICA, MILTON #### [facility] [address] [place], [place] [phone] Refuse Collector: Robi Veliz MD Comprehensive Metabolic Pane [facility] 08-21-2023 Albumin [Mass/Vol] 4.1 g/dL 3.5 - 5.2 g/dL [facility] Albumin/Globulin [Mass ratio] 1.5 {ratio} 1.0 - 2.5 [facility] ALP [Catalytic activity/Vol] 109 U/L High 35 - 104 U/L [facility] ALT [Catalytic activity/Vol] 12 U/L 5 - 33 U/L [facility] Anion gap [Moles/Vol] 13 mmol/L 9 - 17 mmol/L [facility] AST [Catalytic activity/Vol] 13 U/L NINF - 32 U/L [facility] Bilirubin [Mass/Vol] 0.2 mg/dL Low 0.3 - 1 .2 mg/dL [facility] Calcium [Mass/Vol] 9.2 mg/dL 8.6 - 10. 4 mg/dL [facility] Chloride [Moles/Vol] 104 mmol/L 98 - 10 7 mmol/L [facility] CO2 [Moles/Vol] 23 mmol/L 20 - 31 mmol/L [facility] Creatinine [Mass/Vol] 1.0 mg/dL High 0.5 - 0.9 mg/dL [facility] Jarvis Darby Filt Rate 62 - PINF [facility] Comment on above: These results are not intended for use in patients <18 years of age. eGFR results are calculated without a race factor using the 2020 CKD-EPI equation. Careful clinical correlation is recommended, particularly when comparing to results calculated using previous equations. The CKD-EPI equation is less accurate in patients with extremes of muscle mass, extra-renal metabolism of creatine, excessive creatine ingestion, or following therapy that affects renal tubular secretion. Glucose [Mass/Vol] 102 mg/dL High 70 - 99 mg/dL [facility] Interpretation and review of laboratory results Abnormal [facility] Potassium [Moles/Vol] 3.8 mmol/L 3.7 - 5.3 mmol/L [facility] Protein [Mass/Vol] 6.9 g/dL 6.4 - 8.3 g/dL [facility] Sodium [Moles/Vol] 140 mmol/L 135 - 144 mmol/L [facility] Urea nitrogen [Mass/Vol] 17 mg/dL 8 - 23 mg/dL [facility] Urea nitrogen/Creatinine [Mass ratio] 17 mg/mg 9 - 20 [facility] Magnesiumon 08-21-2023 Magnesium [Mass/Vol] 1.9 mg/dL 1.6 - 2 .6 mg/dL [facility] Magnesium [Mass/Vol] 1.9 mg/dL Normal 1.6-2.6 [facility] Comment on above: Performed By: #### C DP #### [facility] [address] [place] [address] Refuse Collector: Sravani Gordon MD #### MILTON MARTIN #### [facility] [address] [place] [address] Refuse Collector: Robi Veliz MD No Panel Informationon 08-20 Mild prominence of the bronchovascular markings within the lungs which may be related to viral pneumonia. Acute fractures involving the proximal 2nd through 4th metatarsals. Possible tiny avulsion fracture involving the medial base of the 1st metatarsal. Acute oblique intra-articular fracture of the lateral malleolus. [facility] EXAMINATION: THREE XRAY VIEWS OF THE LEFT ANKLE; ONE XRAY VIEW OF THE CHEST; THREE XRAY VIEWS OF THE LEFT FOOT 08/21/2023 4:10 pm; 08/21/2023 4:11 pm COMPARISON: February 25, 2023 HISTORY: ORDERING SYSTEM PROVIDED HISTORY: pain TECHNOLOGIST PROVIDED HISTORY: pain; ORDERING SYSTEM PROVIDED HISTORY: dizzy TECHNOLOGIST PROVIDED HISTORY: dizzy FINDINGS: Chest: No confluent infiltrate, effusion, or pneumothorax identified. Mild prominence of bronchovascular markings in the lungs. Cardiac and mediastinal silhouettes are within normal limits. No acute osseous abnormality identified. Left foot: Transverse fractures involving the proximal 2nd through 4th metatarsals. Possible tiny avulsion fracture involving the medial base of the 1st metatarsal. Left ankle: Ankle mortise is congruent. Acute oblique intra-articular fracture of the lateral malleolus. Approximately 1.4 mm lateral displacement of the distal fracture. Plantar calcaneal spur. Melorheostosis involving the 2nd metatarsal. Soft tissue swelling of the lateral ankle. [facility] Oziel Brown MD - 08/21/2023 EXAMINATION: THREE XRAY VIEWS OF THE LEFT ANKLE; ONE XRAY VIEW OF THE CHEST; THREE XRAY VIEWS OF THE LEFT FOOT 08/21/2023 4:10 pm; 08/21/2023 4:11 pm COMPARISON: February 25, 2023 HISTORY: ORDERING SYSTEM PROVIDED HISTORY: pain TECHNOLOGIST PROVIDED HISTORY: pain; ORDERING SYSTEM PROVIDED HISTORY: dizzy TECHNOLOGIST PROVIDED HISTORY: dizzy FINDINGS: Chest: No confluent infiltrate, effusion, or pneumothorax identified. Mild prominence of bronchovascular markings in the lungs. Cardiac and mediastinal silhouettes are within normal limits. No acute osseous abnormality identified. Left foot: Transverse fractures involving the proximal 2nd through 4th metatarsals. Possible tiny avulsion fracture involving the medial base of the 1st metatarsal. Left ankle: Ankle mortise is congruent. Acute oblique intra-articular fracture of the lateral malleolus. Approximately 1.4 mm lateral displacement of the distal fracture. Plantar calcaneal spur. Melorheostosis involving the 2nd metatarsal. Soft tissue swelling of the lateral ankle. IMPRESSION: Mild prominence of the bronchovascular markings within the lungs which may be related to viral pneumonia. Acute fractures involving the proximal 2nd through 4th metatarsals. Possible tiny avulsion fracture involving the medial base of the 1st metatarsal. Acute oblique intra-articular fracture of the lateral malleolus. [facility] No Panel InformationOrdered By: Oziel Brown on 08-21-2023 [facility] Work Phone: Portable XR Chest AP single viewon 08-21-2023 Radiology Study observation (narrative) [facility] TSH w/reflex to FT4on 2023 Thyroid Stim. Horm. 2.33 uIU/mL Normal 0.30-5.00 [facility] Comment on above: Performed By: #### T SHX #### [facility] [address] [place] [address] Refuse Collector: Sravani Gordon MD TSH with Reflexon 08-21-2023 TSH Qn 2.33 m[IU]/L [facility] Troponinon 08-21-2023 Troponin I.cardiac High sensitivity method [Mass/Vol] 9 ng/L 0 - 14 ng/L [facility] Comment on above: High Sensitivity Tro ponin values cannot be compared with other Troponin methodologies. [facility] Troponin, High Sens 9 ng/L Normal 0-14 [facility] Comment on above: Result Comment: High Sensitivity Troponin values cannot be compared with other Troponin methodologies. Performed By: #### C DP #### [facility] [address] [place] [address] Refuse Collector: Sravani Gordon MD #### MILTON MARTIN #### [address] [address] Refuse Collector: Robi Veliz MD XR ANKLE LEFT (MIN 3 VIEWS)o n 08-21-2023 XR ANKLE LEFT (MIN 3 VIEWS) EXAMINATION: THREE XRAY VIEWS OF THE LEFT ANKLE; ONE XRAY VIEW OF THE CHEST; THREE XRAY VIEWS OF THE LEFT FOOT 08/21/2023 4:10 pm; 08/21/2023 4:11 pm COMPARISON: February 25, 2023 HISTORY: ORDERING SYSTEM PROVIDED HISTORY: pain TECHNOLOGIST PROVIDED HISTORY: pain; ORDERING SYSTEM PROVIDED HISTORY: dizzy TECHNOLOGIST PROVIDED HISTORY: dizzy FINDINGS: Chest: No confluent infiltrate, effusion, or pneumothorax identified. Mild prominence of bronchovascular markings in the lungs. Cardiac and mediastinal silhouettes are within normal limits. No acute osseous abnormality identified. Left foot: Transverse fractures involving the proximal 2nd through 4th metatarsals. Possible tiny avulsion fracture involving the medial base of the 1st metatarsal. Left ankle: Ankle mortise is congruent. Acute oblique intra-articular fracture of the lateral malleolus. Approximately 1.4 mm lateral displacement of the distal fracture. Plantar calcaneal spur. Melorheostosis involving the 2nd metatarsal. Soft tissue swelling of the lateral ankle. IMPRESSION: Mild prominence of the bronchovascular markings within the lungs which may be related to viral pneumonia. Acute fractures involving the proximal 2nd through 4th metatarsals. Possible tiny avulsion fracture involving the medial base of the 1st metatarsal. Acute oblique intra-articular fracture of the lateral malleolus. Interpreted by: Oziel Brown MD Signed by: Oziel Brown MD 08/21/23 Final result Normal [facility] XR Ankle - left 3 [facility] Radiology Study observation (narrative) [facility] D[facility] XR CHEST PORTABLEon 08-21-19 XR CHEST PORTABLE EXAMINATION: THREE XRAY VIEWS OF THE LEFT ANKLE; ONE XRAY VIEW OF THE CHEST; THREE XRAY VIEWS OF THE LEFT FOOT 08/21/2023 4:10 pm; 08/21/2023 4:11 pm COMPARISON: February 25, 2023 HISTORY: ORDERING SYSTEM PROVIDED HISTORY: pain TECHNOLOGIST PROVIDED HISTORY: pain; ORDERING SYSTEM PROVIDED HISTORY: dizzy TECHNOLOGIST PROVIDED HISTORY: dizzy FINDINGS: Chest: No confluent infiltrate, effusion, or pneumothorax identified. Mild prominence of bronchovascular markings in the lungs. Cardiac and mediastinal silhouettes are within normal limits. No acute osseous abnormality identified. Left foot: Transverse fractures involving the proximal 2nd through 4th metatarsals. Possible tiny avulsion fracture involving the medial base of the 1st metatarsal. Left ankle: Ankle mortise is congruent. Acute oblique intra-articular fracture of the lateral malleolus. Approximately 1.4 mm lateral displacement of the distal fracture. Plantar calcaneal spur. Melorheostosis involving the 2nd metatarsal. Soft tissue swelling of the lateral ankle. IMPRESSION: Mild prominence of the bronchovascular markings within the lungs which may be related to viral pneumonia. Acute fractures involving the proximal 2nd through 4th metatarsals. Possible tiny avulsion fracture involving the medial base of the 1st metatarsal. Acute oblique intra-articular fracture of the lateral malleolus. Interpreted by: Oziel Brown MD Signed by: Oziel Brown MD 08/21/23 Final result Normal [facility] XR FOOT LEFT (MIN 3 VIEWS)on 08-21-2023 XR FOOT LEFT (MIN 3 VIEWS) EXAMINATION: THREE XRAY VIEWS OF THE LEFT ANKLE; ONE XRAY VIEW OF THE CHEST; THREE XRAY VIEWS OF THE LEFT FOOT 08/21/2023 4:10 pm; 08/21/2023 4:11 pm COMPARISON: February 25, 2023 HISTORY: ORDERING SYSTEM PROVIDED HISTORY: pain TECHNOLOGIST PROVIDED HISTORY: pain; ORDERING SYSTEM PROVIDED HISTORY: dizzy TECHNOLOGIST PROVIDED HISTORY: dizzy FINDINGS: Chest: No confluent infiltrate, effusion, or pneumothorax identified. Mild prominence of bronchovascular markings in the lungs. Cardiac and mediastinal silhouettes are within normal limits. No acute osseous abnormality identified. Left foot: Transverse fractures involving the proximal 2nd through 4th metatarsals. Possible tiny avulsion fracture involving the medial base of the 1st metatarsal. Left ankle: Ankle mortise is congruent. Acute oblique intra-articular fracture of the lateral malleolus. Approximately 1.4 mm lateral displacement of the distal fracture. Plantar calcaneal spur. Melorheostosis involving the 2nd metatarsal. Soft tissue swelling of the lateral ankle. IMPRESSION: Mild prominence of the bronchovascular markings within the lungs which may be related to viral pneumonia. Acute fractures involving the proximal 2nd through 4th metatarsals. Possible tiny avulsion fracture involving the medial base of the 1st metatarsal. Acute oblique intra-articular fracture of the lateral malleolus. Interpreted by: Oziel Bronw MD Signed by: Oziel Brown MD 08/21/23 Final result Normal [facility] XR Foot - left 3 [facility] Radiology Study observation (narrative) [facility] DÍ[facility] CBC with Diffon 07-13-2023 Abs. Basophil 0.13 k/uL Normal 0.00-0.20 [facility] Comment on above: Performed By: #### C DP #### [address] [place] [id number] Refuse Collector: Sravani Gordon MD #### MILTON MARTIN #### [address] [address] Refuse Collector: Robi Veliz MD Abs.Imm.Granulocyte <0.03 Normal 0.00-0.30 [facility] Comment on above: Performed By: #### C DP #### [address] [place] [id number] Refuse Collector: Sravani Gordon MD #### MILTON MARTIN #### [place] [id number] Refuse Collector: Robi Veliz MD Abs.Neutrophil (Seg) 3.36 k/uL Normal 1.50-8.10 [facility] Comment on above: Performed By: #### C DP #### [address] [place] [phone] Refuse Collector: Sravani Gordon MD #### VERONICA FERI #### [place] [address] Refuse Collector: Robi Veliz MD Basophils/100 WBC (Bld) 2 % Normal 0-2 M [facility] Comment on above: Performed By: #### C DP #### [address] [place] [address] Refuse Collector: Sravani Gordon MD #### FEBC, FERI #### [address] [place], [place] [phone] Refuse Collector: Robi Veliz MD Eosinophils (Bld) [#/Vol] 0.62 10*3/uL High 0.00-0.44 [facility] Comment on above: Performed By: #### C DP #### [address] [place] [phone] Refuse Collector: Sravani Gordon MD #### FEBC, FERI #### [place] [id number] Refuse Collector: Robi Veliz MD Eosinophils/100 WBC (Bld) 10 % High 1-4 [facility] Comment on above: Performed By: #### C DP #### [address] [place] [phone] Refuse Collector: Sravani Gordon MD #### VERONICA, FERI #### [place] [address] Refuse Collector: Robi Veliz MD Erythrocyte distribution width (RBC) [Ratio] 12.9 % Normal 11.8-14.4 [facility] Comment on above: Performed By: #### C DP #### [address] [place] [id number] ( Refuse Collector: Sravani Gordon MD #### FEBC, FERI #### [place] [address] Refuse Collector: Robi Veliz MD Hematocrit (Bld) [Volume fraction] 37.3 % Normal 36.3-47.1 [facility] Comment on above: Performed By: #### C DP #### [address] [place] [phone] Refuse Collector: Sravani Gordon MD #### FEBC, FERI #### [address] [place], [place] [phone] Refuse Collector: Robi Veliz MD Hemoglobin (Bld) [Mass/Vol] 12.2 g/dL Normal 11.9-15.1 [facility] Comment on above: Performed By: #### C DP #### [facility] [address] [place] [id number] Refuse Collector: Sravani Gordon MD #### FEBC, FERI #### [address] [id number] Refuse Collector: Robi Veliz MD Immature granulocytes/100 WBC (Bld) 0 % Normal 0 [facility] Comment on above: Performed By: #### C DP #### [facility] [address] [place] [phone] Refuse Collector: Sravani Gordon MD #### FEDESTINY, FERI #### [address] [address] Refuse Collector: Robi Veliz MD Lymphocytes (Bld) [#/Vol] 1.61 10*3/uL Normal 1.10-3.70 [facility] Comment on above: Performed By: #### C DP #### [facility] [address] [place] [id number] Refuse Collector: Sravani Gordon MD #### FEBC, FERI #### [address] [address] Refuse Collector: Robi Veliz MD Lymphocytes/100 WBC (Bld) 25 % Normal 24-43 [facility] Comment on above: Performed By: #### C DP #### [facility] [address] [address] [place] [id number] Refuse Collector: Sravani Gordon MD #### FEBC, FERI #### [address] [place], [place] 5631008 Refuse Collector: Robi Veliz MD MCH (RBC) [Entitic mass] 30.3 pg Normal 25.2-33.5 [facility] Comment on above: Performed By: #### C DP #### [facility] [address] [place] [address] Dr. [place] [phone] Refuse Collector: Sravani Gordon MD #### VERONICA, FERI #### [address] [phone] Refuse Collector: Robi Veliz MD MCHC (RBC) [Mass/Vol] 32.7 g/dL Normal 28.4-34.8 [facility] Comment on above: Performed By: #### C DP #### [address] [place] [phone] Refuse Collector: Sravani Gordon MD #### VERONICA, FERI #### [address] [place], [place] 6000608 Refuse Collector: Robi Veliz MD MCV (RBC) [Entitic vol] 92.8 fL Normal 82.6-102.9 M [facility] Comment on above: Performed By: #### C DP #### [address] [place] [phone] Refuse Collector: Sravani oGrdon MD #### VERONICA, FERI #### [id number] [place], [place] [phone] Refuse Collector: Robi Veliz MD Monocytes (Bld) [#/Vol] 0.67 10*3/uL Normal 0.10-1.20 [facility] Comment on above: Performed By: #### C DP #### [address] [place] [phone] Refuse Collector: Sravani Gordon MD #### VERONICA, FERI #### [address] [address] Refuse Collector: Robi Veliz MD Monocytes/100 WBC (Bld) 11 % Normal 3-12 M [facility] Comment on above: Performed By: #### C DP #### [facility] [address] [place] [address] Refuse Collector: Sravani Gordon MD #### VERONICA FERI #### [address] [address] Refuse Collector: Robi Veliz MD Neutrophil (Seg) 52 % Normal 36-65 [facility] Comment on above: Performed By: #### C DP #### [address] [place], [place] [phone] Refuse Collector: Sravani Gordon MD #### SREEDHAR MARTINI #### [address] [address] Refuse Collector: Robi Veliz MD NRBC Automated 0.0 per 100 WBC Normal 0.0 [facility] Comment on above: Performed By: #### C DP #### [address] [place], [place] 1823683 Refuse Collector: Sravani Gordon MD #### VERONICA FERI #### [address] [address] Refuse Collector: Robi Veliz MD Platelet mean volume (Bld) [Entitic vol] 9.7 fL Normal 8.1-13.5 [facility] Comment on above: Performed By: #### C DP #### [address] [place] [address] Refuse Collector: Sravani Gordon MD #### VERONICA FERI #### [address] [address] Refuse Collector: Robi Veliz MD Platelets (Bld) [#/Vol] 293 10*3/uL Normal 138-453 [facility] Comment on above: Performed By: #### C DP #### [address] [place], [place] [phone] Refuse Collector: Sravani Gordon MD #### VERONICA, FERI #### [address] [phone] Refuse Collector: Robi Veliz MD RBC (Bld) [#/Vol] 4.02 10*6/uL Normal 3.95-5.11 [facility] Comment on above: Performed By: #### C DP #### [address] [place] [phone] Refuse Collector: Sravani Gordon MD #### VERONICA, FERI #### [address] [address] Refuse Collector: Robi Veliz MD WBC (Bld) [#/Vol] 6.4 10*3/uL Normal 3.5-11.3 [facility] Comment on above: Performed By: #### C DP #### [address] [place] [phone] Refuse Collector: Sravani Gordon MD #### VERONICA, FERI #### [address] [address] Refuse Collector: Robi Veliz MD Comp Metabolic Profon 2023 Albumin [Mass/Vol] 3.8 g/dL Normal 3.5-5.2 [facility] Comment on above: Performed By: #### C DP #### [address] [place] [phone] Refuse Collector: Sravani Gordon MD #### VERONICA, FERI #### [address] [phone] Refuse Collector: Robi Veliz MD Albumin/Glob Ratio 1.4 Normal 1.0-2.5 [facility] Comment on above: Performed By: #### C DP #### [facility] [address] [place] [address] Refuse Collector: Sravani Gordon MD #### VERONICA, FERI #### [address] [address] Refuse Collector: Robi Veliz MD Alkaline Phos 107 U/L High 35-104 [facility] Comment on above: Performed By: #### C DP #### [address] [place] [phone] Refuse Collector: Sravani Gordon MD #### VERONICA, FERI #### [address] [address] Refuse Collector: Robi Veliz MD ALT [Catalytic activity/Vol] 13 U/L Normal 5-33 [facility] Comment on above: Performed By: #### C DP #### [facility] [address] [place] [address] [address] [place], [place] [phone] Refuse Collector: Sravani Gordon MD #### VERONICA, FERI #### [address] [address] Refuse Collector: Robi Veliz MD Anion gap [Moles/Vol] 9 mmol/L Normal 9-17 [facility] Comment on above: Performed By: #### C DP #### [facility] [address] [place], [place] [phone] Refuse Collector: Sravani Gordon MD #### VERONICA, FERI #### [address] [address] Refuse Collector: Robi Veliz MD AST [Catalytic activity/Vol] 11 U/L Normal <32 [facility] Comment on above: Performed By: #### C DP #### [facility] [address] [place], [place] [phone] Refuse Collector: Sravani Gordon MD #### MILTON MARTIN #### [facility] [address] [place] [address] Refuse Collector: Robi Veliz MD Bilirubin [Mass/Vol] 0.2 mg/dL Low 0.3-1.2 [facility] Comment on above: Performed By: #### C DP #### [facility] [address] [place], [place] [phone] Refuse Collector: Sravani Gordon MD #### MILTON MARTIN #### [address] [phone] Refuse Collector: Robi Veliz MD BUN/CRE Ratio 11 Normal 9-20 [facility] Comment on above: Performed By: #### C DP #### [facility] [address] [place] [address] Refuse Collector: Sravani Gordon MD #### MILTON MARTIN #### [address] [address] Refuse Collector: Robi Veliz MD Calcium [Mass/Vol] 8.8 mg/dL Normal 8.6-10.4 [facility] Comment on above: Performed By: #### C DP #### [facility] [address] [place] [address] [place] [address] Refuse Collector: Sravani Gordon MD #### MILTON MARTIN #### [address] [place] [address] Refuse Collector: Robi Veliz MD Chloride [Moles/Vol] 109 mmol/L High 98-107 [facility] Comment on above: Performed By: #### C DP #### [facility] [address] [place] [address] [place] [address] Refuse Collector: Sravani Gordon MD #### VERONICA, SREEDHARI #### [address] [place], [place] [phone] Refuse Collector: Robi Veliz MD CO2 [Moles/Vol] 26 mmol/L Normal 20-31 [facility] Comment on above: Performed By: #### C DP #### [address] [place], [place] 5709283 Refuse Collector: Sravani Gordon MD #### VERONICA, FERI #### [address] [phone] Refuse Collector: Robi Veliz MD Creatinine [Mass/Vol] 0.8 mg/dL Normal 0.5-0.9 [facility] Comment on above: Performed By: #### C DP #### [address] [place] [phone] Refuse Collector: Sravani Gordon MD #### VERONICA, FERI #### [address] [phone] Refuse Collector: Robi Veliz MD GFR/1.73 sq M.predicted among non-blacks MDRD (S/P/Bld) [Vol rate/Area] 81 mL/min/{1.73_m2} Normal >60 [facility] Comment on above: Result Comment: These results are not intended for use in patients <18 years of age. eGFR results are calculated without a race factor using the 2020 CKD-EPI equation. Careful clinical correlation is recommended, particularly when comparing to results calculated using previous equations. The CKD-EPI equation is less accurate in patients with extremes of muscle mass, extra-renal metabolism of creatine, excessive creatine ingestion, or following therapy that affects renal tubular secretion. Performed By: #### C DP #### [address] [place] [address] Refuse Collector: Sravani Gordon MD #### FEDESTINY, FERI #### [facility] [address] [place] [address] Refuse Collector: Robi Veliz MD Glucose [Mass/Vol] 102 mg/dL High 70-99 [facility] Comment on above: Performed By: #### C DP #### [facility] [address] [place], [place] [phone] Refuse Collector: Sravani Gordon MD #### VERONICA, FERI #### [address] [address] Refuse Collector: Robi Veliz MD Potassium [Moles/Vol] 4.1 mmol/L Normal 3.7-5.3 [facility] Comment on above: Performed By: #### C DP #### [facility] [address] [place], [place] [phone] Refuse Collector: Sravani Gordon MD #### VERONICA, FERI #### [address] [address] Refuse Collector: Robi Veliz MD Protein [Mass/Vol] 6.5 g/dL Normal 6.4-8.3 [facility] Comment on above: Performed By: #### C DP #### [facility] [address] [place], [place] 8239483 Refuse Collector: Sravani Gordon MD #### VERONICA, FERI #### [address] [address] Refuse Collector: Robi Veliz MD Sodium [Moles/Vol] 144 mmol/L Normal 135-144 [facility] Comment on above: Performed By: #### C DP #### [facility] [address] [place] [address] Refuse Collector: Sravani Gordon MD #### VERONICA, FERI #### [address] [address] Refuse Collector: Robi Veliz MD Urea nitrogen [Mass/Vol] 9 mg/dL Normal 8-23 [facility] Comment on above: Performed By: #### C DP #### [facility] [address] [place], [place] [phone] Refuse Collector: Sravani Gordon MD #### MILTON MARTIN #### [address] [place], [place] [phone] Refuse Collector: Robi Veliz MD Lipid Profileon 07-13-2023 Cholesterol [Mass/Vol] 219 mg/dL High 0-199 [facility] Comment on above: Result Comment: Cholesterol Guidelines: <200 Desirable 200-240 Borderline >240 Undesirable Performed By: #### C DP #### [address] [place], [place] [phone] Refuse Collector: Sravani Gordon MD #### SREEDHAR MARTINI #### [address] [place] [address] Refuse Collector: Robi Veliz MD Cholesterol in HDL [Mass/Vol] 46 mg/dL Normal >40 [facility] Comment on above: Result Comment: HDL Guidelines: <40 Undesirable 40-59 Borderline >59 Desirable Performed By: #### C DP #### [address] [place], [place] 2519783 Refuse Collector: Sravani Gordon MD #### VERONICA, FERI #### [address] [place] [address] Refuse Collector: Robi Veliz MD Cholesterol in LDL [Mass/Vol] 142 mg/dL High 0-100 [facility] Comment on above: Result Comment: LDL Guidelines: <100 Desirable 100-129 Near to/above Desirable 130-159 Borderline >159 Undesirable Direct (measured) LDL and calculated LDL are not interchangeable tests. Performed By: #### C DP #### [address] [place] [phone] Refuse Collector: Sravani Gordon MD #### VERONICA, FERI #### [address] [phone] Refuse Collector: Robi Veliz MD Cholesterol in VLDL [Mass/Vol] 31 mg/dL Normal [facility] Comment on above: Performed By: #### C DP #### [address] [place] [phone] Refuse Collector: Sravani Gordon MD #### SREEDHAR MARTINI #### [address] [address] Refuse Collector: Robi Veliz MD Cholesterol.total/Cynthia sterol in HDL [Mass ratio] 5.0 {ratio} Normal [facility] Comment on above: Performed By: #### C DP #### [address] [place] [phone] ( Refuse Collector: Sravani Gordon MD #### SREEDHAR MARTINI #### [address] [address] Refuse Collector: Robi Veliz MD Triglyceride [Mass/Vol] 155 mg/dL High <150 M [facility] Comment on above: Result Comment: Triglyceride Guidelines: <150 Desirable 150-199 Borderline 200-499 High >499 Very high Based on AHA Guidelines for fasting triglyceride, December 2011. Performed By: #### C DP #### [address] [place] [phone] Refuse Collector: Sravani Gordon MD #### VERONICA FERI #### [address] [phone] Refuse Collector: Robi Veliz MD Thyroid Stim. Horm.on 2023 Thyroid Stim. Horm. 1.30 uIU/mL Normal 0.30-5.00 [facility] Comment on above: Performed By: #### C DP #### [facility] [address] [place] [address] Dr[address] [place] [phone] Refuse Collector: Sravani Gordon MD #### SREEDHAR MARTINI #### [address] [address] Refuse Collector: Robi Veliz MD Thyroxine T4on 07-13-2023 T4 [Mass/Vol] 4.2 ug/dL Low 4.5-11.7 [facility] Comment on above: Performed By: #### C DP #### [facility] [address] [place] [address] Dr[address] [place] [phone] Refuse Collector: Sravani Gordon MD #### MILTON MARTIN #### [address] [address] Refuse Collector: Robi Veliz MD CBC with Diffon 02-27-2023 Abs. Basophil 0.04 k/uL Normal 0.00-0.20 [facility] Comment on above: Performed By: #### L IPR #### [address] [address] Refuse Collector: Robi Veliz MD #### CP, CDP #### [address] [place] [phone] Refuse Collector: Sravani Gordon MD Abs.Imm.Granulocyte <0.03 Normal 0.00-0.30 [facility] Comment on above: Performed By: #### L IPR #### [address] [address] Refuse Collector: Robi Veliz MD #### CP, CDP #### [address] [place] [phone] Refuse Collector: Sravani Gordon MD Abs.Neutrophil (Seg) 4.65 k/uL Normal 1.50-8.10 [facility] Comment on above: Performed By: #### L IPR #### [address] [address] Refuse Collector: Robi Veliz MD #### CP, CDP #### [address] [place], [place] [phone] Refuse Collector: Sravani Gordon MD Basophils/100 WBC (Bld) 1 % Normal 0-2 M [facility] Comment on above: Performed By: #### L IPR #### [address] [address] Refuse Collector: Robi Veliz MD #### CP, CDP #### [address] [place] [phone] Refuse Collector: Sravani Gordon MD Eosinophils (Bld) [#/Vol] 0.68 10*3/uL High 0.00-0.44 [facility] Comment on above: Performed By: #### L IPR #### [address] [address] Refuse Collector: Robi Veliz MD #### CP, CDP #### [address] [place] [phone] Refuse Collector: Sravani Gordon MD Eosinophils/100 WBC (Bld) 10 % High 1-4 [facility] Comment on above: Performed By: #### L IPR #### [address] [address] Refuse Collector: Robi Veliz MD #### CP, CDP #### [address] [place] [phone] Refuse Collector: Sravani Gordon MD Erythrocyte distribution width (RBC) [Ratio] 13.0 % Normal 11.8-14.4 [facility] Comment on above: Performed By: #### L IPR #### [address] [address] Refuse Collector: Robi Veliz MD #### CP, CDP #### [facility] [address] [place], [place] [phone] Refuse Collector: Sravani Gordon MD Hematocrit (Bld) [Volume fraction] 35.6 % Low 36.3-47.1 [facility] Comment on above: Performed By: #### L IPR #### [address] [address] Refuse Collector: Robi Veliz MD #### CP, CDP #### [address] [place] [phone] Refuse Collector: Sravani Gordon MD Hemoglobin (Bld) [Mass/Vol] 11.5 g/dL Low 11.9-15.1 [facility] Comment on above: Performed By: #### L IPR #### [address] [address] Refuse Collector: Robi Veliz MD #### CP, CDP #### [address] [place] [phone] Refuse Collector: Sravani Gordon MD Immature granulocytes/100 WBC (Bld) 0 % Normal 0 [facility] Comment on above: Performed By: #### L IPR #### [address] [address] Refuse Collector: Robi Veliz MD #### CP, CDP #### [facility] [address] [place] [address] [address] [place] [phone] Refuse Collector: Sravani Gordon MD Lymphocytes (Bld) [#/Vol] 0.72 10*3/uL Low 1.10-3.70 [facility] Comment on above: Performed By: #### L IPR #### [address] [address] Refuse Collector: Robi Veliz MD #### CP, CDP #### [facility] [address] [place], [place] [phone] Refuse Collector: Sravani Gordon MD Lymphocytes/100 WBC (Bld) 11 % Low 24-43 [facility] Comment on above: Performed By: #### L IPR #### [address] [address] Refuse Collector: Robi Veliz MD #### CP, CDP #### [address] [place], [place] [phone] Refuse Collector: Sravani Gordon MD MCH (RBC) [Entitic mass] 31.4 pg Normal 25.2-33.5 [facility] Comment on above: Performed By: #### L IPR #### [address] [address] Refuse Collector: Robi Veliz MD #### CP, CDP #### [address] [place], [place] [phone] Refuse Collector: Sravani Gordon MD MCHC (RBC) [Mass/Vol] 32.3 g/dL Normal 28.4-34.8 [facility] Comment on above: Performed By: #### L IPR #### [address] [address] Refuse Collector: Robi Veliz MD #### CP, CDP #### [address] [place], [place] [phone] Refuse Collector: Sravani Gordon MD MCV (RBC) [Entitic vol] 97.3 fL Normal 82.6-102.9 M [facility] Comment on above: Performed By: #### L IPR #### [address] [address] Refuse Collector: Robi Veliz MD #### CP, CDP #### [address] [place], [place] [phone] Refuse Collector: Sravani Gordon MD Monocytes (Bld) [#/Vol] 0.75 10*3/uL Normal 0.10-1.20 [facility] Comment on above: Performed By: #### L IPR #### [address] [address] Refuse Collector: Robi Veliz MD #### CP, CDP #### [address] [place], [place] 9382883 Refuse Collector: Sravani Gordon MD Monocytes/100 WBC (Bld) 11 % Normal 3-12 M [facility] Comment on above: Performed By: #### L IPR #### [address] [address] Refuse Collector: Robi Veliz MD #### CP, CDP #### [address] [place] [phone] Refuse Collector: Sravani Gordon MD Neutrophil (Seg) 67 % High 36-65 [facility] Comment on above: Performed By: #### L IPR #### [address] [address] Refuse Collector: Robi Veliz MD #### CP, CDP #### [address] [place] [phone] Refuse Collector: Sravani Gordon MD NRBC Automated 0.0 per 100 WBC Normal 0.0 [facility] Comment on above: Performed By: #### L IPR #### [address] [address] Refuse Collector: Robi Veliz MD #### CP, CDP #### [address] [place], [place] 3116583 Refuse Collector: Sravani Gordon MD Platelet mean volume (Bld) [Entitic vol] 9.7 fL Normal 8.1-13.5 [facility] Comment on above: Performed By: #### L IPR #### [facility] [address] [place] [address] Refuse Collector: Robi Veliz MD #### CP, CDP #### [facility] [address] [place], [place] 0791983 Refuse Collector: Sravani Gordon MD Platelets (Bld) [#/Vol] 177 10*3/uL Normal 138-453 [facility] Comment on above: Performed By: #### L IPR #### [address] [place] [address] Refuse Collector: Robi Veliz MD #### CP, CDP #### [facility] [address] [place] [address] [address] [place] [phone] Refuse Collector: Sravani Gordon MD RBC (Bld) [#/Vol] 3.66 10*6/uL Low 3.95-5.11 [facility] Comment on above: Performed By: #### L IPR #### [address] [place] [address] Refuse Collector: Robi Veliz MD #### CP, CDP #### [facility] [address] [place] [address] [address] [place], [place] [phone] Refuse Collector: Sravani Gordon MD WBC (Bld) [#/Vol] 6.9 10*3/uL Normal 3.5-11.3 [facility] Comment on above: Performed By: #### L IPR #### [facility] [address] [place] [address] Refuse Collector: Robi Veliz MD #### CP, CDP #### [facility] [address] [place], [place] [phone] Refuse Collector: Sravani Gordon MD Comp Metabolic Profon 2022 Albumin [Mass/Vol] 3.5 g/dL Normal 3.5-5.2 [facility] Comment on above: Performed By: #### L IPR #### [address] [address] Refuse Collector: Robi Veliz MD #### CP, CDP #### [address] [place], [place] 1012983 Refuse Collector: Sravani Gordon MD Albumin/Glob Ratio 1.4 Normal 1.0-2.5 [facility] Comment on above: Performed By: #### L IPR #### [address] [address] Refuse Collector: Robi Veliz MD #### CP, CDP #### [address] [place], [place] 0151283 Refuse Collector: Sravani Gordon MD Alkaline Phos 86 U/L Normal 35-104 [facility] Comment on above: Performed By: #### L IPR #### [address] [address] Refuse Collector: Robi Veliz MD #### CP, CDP #### [address] [place], [place] 5155783 Refuse Collector: Sravani Gordon MD ALT [Catalytic activity/Vol] 21 U/L Normal 5-33 [facility] Comment on above: Performed By: #### L IPR #### [address] [address] Refuse Collector: Robi Veliz MD #### CP, CDP #### [address] [place], [place] 1468183 Refuse Collector: Sravani Gordon MD Anion gap [Moles/Vol] 10 mmol/L Normal 9-17 [facility] Comment on above: Performed By: #### L IPR #### [address] [address] Refuse Collector: Robi Veliz MD #### CP, CDP #### [facility] [address] [place] [address] Refuse Collector: Sravani Gordon MD AST [Catalytic activity/Vol] 16 U/L Normal <32 [facility] Comment on above: Performed By: #### L IPR #### [address] [address] Refuse Collector: Robi Veliz MD #### CP, CDP #### [facility] [address] [place] [address] [place] [address] Refuse Collector: Sravani Gordon MD Bilirubin [Mass/Vol] 0.3 mg/dL Normal 0.3-1.2 [facility] Comment on above: Performed By: #### L IPR #### [address] [address] Refuse Collector: Robi Veliz MD #### CP, CDP #### [facility] [address] [place] [address] [place] [address] Refuse Collector: Sravani Gordon MD BUN/CRE Ratio 13 Normal 9-20 [facility] Comment on above: Performed By: #### L IPR #### [address] [address] Refuse Collector: Robi Veliz MD #### CP, CDP #### [facility] [address] [place] [address] [place] [address] Refuse Collector: Sravani Gordon MD Calcium [Mass/Vol] 8.8 mg/dL Normal 8.6-10.4 [facility] Comment on above: Performed By: #### L IPR #### [address] [address] Refuse Collector: Robi Veliz MD #### CP, CDP #### [facility] [address] [place], [place] 6592583 Refuse Collector: Sravani Gordon MD Chloride [Moles/Vol] 110 mmol/L High 98-107 [facility] Comment on above: Performed By: #### L IPR #### [facility] [address] [place] [address] Refuse Collector: Robi Veliz MD #### CP, CDP #### [facility] [address] [place], [place] 1189783 Refuse Collector: Sravani Gordon MD CO2 [Moles/Vol] 23 mmol/L Normal 20-31 [facility] Comment on above: Performed By: #### L IPR #### [address] [address] Refuse Collector: Robi Veliz MD #### CP, CDP #### [facility] [address] [place] [address] [place], [place] [phone] Refuse Collector: Sravani Gordon MD Creatinine [Mass/Vol] 0.9 mg/dL Normal 0.5-0.9 [facility] Comment on above: Performed By: #### L IPR #### [address] [address] Refuse Collector: Robi Veliz MD #### CP, CDP #### [address] [place], [place] 4662983 Refuse Collector: Sravani Gordon MD GFR/1.73 sq M.predicted among non-blacks MDRD (S/P/Bld) [Vol rate/Area] mL/min/{1.73_m2} Normal >60 [facility] Comment on above: Result Comment: These results are not intended for use in patients <18 years of age. eGFR results are calculated without a race factor using the 2020 CKD-EPI equation. Careful clinical correlation is recommended, particularly when comparing to results calculated using previous equations. The CKD-EPI equation is less accurate in patients with extremes of muscle mass, extra-renal metabolism of creatine, excessive creatine ingestion, or following therapy that affects renal tubular secretion. Performed By: #### L IPR #### [address] [address] Refuse Collector: Robi Veliz MD #### CP, CDP #### [facility] [address] [place] [address] [place] [address] Refuse Collector: Sravani Gordon MD Glucose [Mass/Vol] 90 mg/dL Normal 70-99 [facility] Comment on above: Performed By: #### L IPR #### [address] [address] Refuse Collector: Robi Veliz MD #### CP, CDP #### [address] [place] [phone] Refuse Collector: Sravani Gordon MD Potassium [Moles/Vol] 4.3 mmol/L Normal 3.7-5.3 [facility] Comment on above: Performed By: #### L IPR #### [address] [address] Refuse Collector: Robi Veliz MD #### CP, CDP #### [address] [place], [place] [phone] Refuse Collector: Sravani Gordon MD Protein [Mass/Vol] 6.0 g/dL Low 6.4-8.3 [facility] Comment on above: Performed By: #### L IPR #### [address] [address] Refuse Collector: Robi Veliz MD #### CP, CDP #### [facility] [address] [place] [address] [address] [place], [place] [phone] Refuse Collector: Sravani Gordon MD Sodium [Moles/Vol] 143 mmol/L Normal 135-144 [facility] Comment on above: Performed By: #### L IPR #### [address] [address] Refuse Collector: Robi Veliz MD #### CP, CDP #### [facility] [address] [place] [address] [address] [place], [place] [phone] Refuse Collector: Sravani Gordon MD Urea nitrogen [Mass/Vol] 12 mg/dL Normal 8-23 [facility] Comment on above: Performed By: #### L IPR #### [address] [address] Refuse Collector: Robi Veliz MD #### CP, CDP #### [address] [place], [place] [phone] Refuse Collector: Sravani Gordon MD Lipid Profileon 02-27-2023 Cholesterol [Mass/Vol] 197 mg/dL Normal <200 [facility] Comment on above: Result Comment: Cholesterol Guidelines: <200 Desirable 200-240 Borderline >240 Undesirable Performed By: #### L IPR #### [address] [address] Refuse Collector: Robi Veliz MD #### CP, CDP #### [address] [place], [place] [phone] Refuse Collector: Sravani Gordon MD Cholesterol in HDL [Mass/Vol] 49 mg/dL Normal >40 [facility] Comment on above: Result Comment: HDL Guidelines: <40 Undesirable 40-59 Borderline >59 Desirable Performed By: #### L IPR #### [address] [address] Refuse Collector: Robi Veliz MD #### CP, CDP #### [facility] [address] [place] [address] [address] [place], [place] [phone] Refuse Collector: Sravani Gordon MD Cholesterol in LDL [Mass/Vol] 121 mg/dL Normal 0-130 [facility] Comment on above: Result Comment: LDL Guidelines: <100 Desirable 100-129 Near to/above Desirable 130-159 Borderline >159 Undesirable Direct (measured) LDL and calculated LDL are not interchangeable tests. Performed By: #### L IPR #### [place] [place] [address] Refuse Collector: Robi Veliz MD #### CP, CDP #### [address] [place], [place] 3700283 Refuse Collector: Sravani Gordon MD Cholesterol.total/Cynthia sterol in HDL [Mass ratio] 4.0 {ratio} Normal <5 [facility] Comment on above: Performed By: #### L IPR #### [address] [address] Refuse Collector: Robi Veliz MD #### CP, CDP #### [address] [place] [phone] ( Refuse Collector: Sravani Gordon MD Triglyceride [Mass/Vol] 135 mg/dL Normal <150 [facility] Comment on above: Result Comment: Triglyceride Guidelines: <150 Desirable 150-199 Borderline 200-499 High >499 Very high Based on AHA Guidelines for fasting triglyceride, December 2011. Performed By: #### L IPR #### [address] [address] Refuse Collector: Robi Veliz MD #### CP, CDP #### [address] [place], [place] [phone] Refuse Collector: Sravani Gordon MD Basic Metabolic Profon 02-26 Anion gap [Moles/Vol] 7 mmol/L Low 9-17 [facility] Comment on above: Performed By: #### C DP #### [address] [place], [place] [phone] Refuse Collector: Sravani Gordon MD #### MILTON MARTIN #### [address] [address] Refuse Collector: Robi Veliz MD BUN/CRE Ratio 21 High 9-20 [facility] Comment on above: Performed By: #### C DP #### [facility] [address] [place], [place] [phone] Refuse Collector: Sravani Gordon MD #### VERONICA, FERI #### [facility] [address] [place] [address] Refuse Collector: Robi Veliz MD Calcium [Mass/Vol] 8.0 mg/dL Low 8.6-10.4 [facility] Comment on above: Performed By: #### C DP #### [facility] [address] [place] [address] [address] [place] [phone] Refuse Collector: Sravani Gordon MD #### VERONICA, FERI #### [address] [address] Refuse Collector: Robi Veliz MD Chloride [Moles/Vol] 109 mmol/L High 98-107 [facility] Comment on above: Performed By: #### C DP #### [facility] [address] [place] [address] [place] [address] Refuse Collector: Sravani Gordon MD #### VERONICA, FERI #### [address] [address] Refuse Collector: Robi Veliz MD CO2 [Moles/Vol] 23 mmol/L Normal 20-31 [facility] Comment on above: Performed By: #### C DP #### [facility] [address] [place] [address] [address] [place], [place] [phone] Refuse Collector: Sravani Gordon MD #### VERONICA, FERI #### [address] [place] [address] Refuse Collector: Robi Veliz MD Creatinine [Mass/Vol] 0.9 mg/dL Normal 0.5-0.9 [facility] Comment on above: Performed By: #### C DP #### [facility] [address] [place] [address] [place] [address] Refuse Collector: Sravani Gordon MD #### MILTON MARTIN #### [address] [phone] Refuse Collector: Robi Veliz MD GFR/1.73 sq M.predicted among non-blacks MDRD (S/P/Bld) [Vol rate/Area] mL/min/{1.73_m2} Normal >60 [facility] Comment on above: Result Comment: These results are not intended for use in patients <18 years of age. eGFR results are calculated without a race factor using the 2020 CKD-EPI equation. Careful clinical correlation is recommended, particularly when comparing to results calculated using previous equations. The CKD-EPI equation is less accurate in patients with extremes of muscle mass, extra-renal metabolism of creatine, excessive creatine ingestion, or following therapy that affects renal tubular secretion. Performed By: #### C DP #### [facility] [address] [place] [address] [place] [address] Refuse Collector: Sravani Gordon MD #### MILTON MARTIN #### [phone] [place], [place] [phone] Refuse Collector: Robi Veliz MD Glucose [Mass/Vol] 110 mg/dL High 70-99 [facility] Comment on above: Performed By: #### C DP #### [facility] [address] [place] [address] [place] [address] Refuse Collector: Sravani Gordon MD #### MILTON MARTIN #### [address] [phone] Refuse Collector: Robi Veliz MD Potassium [Moles/Vol] 4.6 mmol/L Normal 3.7-5.3 [facility] Comment on above: Performed By: #### C DP #### [facility] [address] [place], [place] [phone] Refuse Collector: Sravani Gordon MD #### MILTON MARTIN #### [facility] [address] [place], [place] [phone] Refuse Collector: Robi Veliz MD Sodium [Moles/Vol] 139 mmol/L Normal 135-144 [facility] Comment on above: Performed By: #### C DP #### [address] [place] [address] Refuse Collector: Sravani Gordon MD #### MILTON MARTIN #### [address] [phone] Refuse Collector: Robi Veliz MD Urea nitrogen [Mass/Vol] 19 mg/dL Normal 8-23 [facility] Comment on above: Performed By: #### C DP #### [address] [place], [place] 8067083 Refuse Collector: Sravani Gordon MD #### MILTON MARTIN #### [address] [phone] Refuse Collector: Robi Veliz MD CBC with Diffon 02-26-2023 Abs. Basophil 0.00 k/uL Normal 0.0-0.2 [facility] Comment on above: Performed By: #### C DP #### [facility] [address] [place] [address] [address] [place], [place] [phone] Refuse Collector: Sravani Gordon MD #### MILTON MARTIN #### [address] [place] [address] Refuse Collector: Robi Veliz MD Abs.Imm.Granulocyte 0.00 k/uL Normal 0.00-0.30 [facility] Comment on above: Performed By: #### C DP #### [address] [place] [phone] Refuse Collector: Sravani Gordon MD #### FEDESTINY, FERI #### [place] [phone] Refuse Collector: Robi Veliz MD Abs.Neutrophil (Seg) 7.47 k/uL Normal 1.50-8.10 [facility] Comment on above: Performed By: #### C DP #### [address] [place] [phone] Refuse Collector: Sravani Gordon MD #### VERONICA, FERI #### [place] [phone] Refuse Collector: Robi Veliz MD Basophils/100 WBC (Bld) 0 % Normal 0-2 [facility] Comment on above: Performed By: #### C DP #### [address] [place] [address] Refuse Collector: Sravani Gordon MD #### VERONICA, FERI #### [place] [address] Refuse Collector: Robi Veliz MD Eosinophils (Bld) [#/Vol] 0.34 10*3/uL Normal 0.00-0.44 [facility] Comment on above: Performed By: #### C DP #### [address] [place] [phone] Refuse Collector: Sravani Gordon MD #### VERONICA, FERI #### [place] [phone] Refuse Collector: Robi Veliz MD Eosinophils/100 WBC (Bld) 4 % Normal 1-4 [facility] Comment on above: Performed By: #### C DP #### [address] [place] [phone] Refuse Collector: Sravani Gordon MD #### FEBC, FERI #### [address] [place] [address] Refuse Collector: Robi Veliz MD Immature granulocytes/100 WBC (Bld) 0 % Normal 0 [facility] Comment on above: Performed By: #### C DP #### [facility] [address] [place] [phone] Refuse Collector: Sravani Gordon MD #### FEBC, FERI #### [address] [address] Refuse Collector: Robi Veliz MD Lymphocytes (Bld) [#/Vol] 0.26 10*3/uL Low 1.10-3.70 [facility] Comment on above: Performed By: #### C DP #### [facility] [address] [place] [address] [place] [address] Refuse Collector: Sravani Gordon MD #### FEDESTINY, FERI #### [address] [address] Refuse Collector: Robi Veliz MD Lymphocytes/100 WBC (Bld) 3 % Low 24-43 [facility] Comment on above: Performed By: #### C DP #### [facility] [address] [place] [phone] Refuse Collector: Sravani Gordon MD #### FEBC, FERI #### [address] [address] Refuse Collector: Robi Veliz MD Monocytes (Bld) [#/Vol] 0.43 10*3/uL Normal 0.10-1.20 [facility] Comment on above: Performed By: #### C DP #### [facility] [address] [place] [phone] Refuse Collector: Sravani Gordon MD #### VERONICA, FERI #### [facility] [address] [place] [address] Refuse Collector: Robi Veliz MD Monocytes/100 WBC (Bld) 5 % Normal 3-12 [facility] Comment on above: Performed By: #### C DP #### [facility] [address] [place], [place] [phone] Refuse Collector: Sravani Gordon MD #### VERONICA, FERI #### [address] [address] Refuse Collector: Robi Veliz MD Morphology Wicho (Bld) [Interp] Platelet scan shows Normal Platelets Normal [facility] Comment on above: Result Comment: DOHL E BODIES PRESENT Performed By: #### C DP #### [facility] [address] [place], [place] [phone] Refuse Collector: Sravani Gordon MD #### VERONICA, FERI #### [address] [address] Refuse Collector: Robi Veliz MD Neutrophil (Seg) 88 % High 36-65 [facility] Comment on above: Performed By: #### C DP #### [facility] [address] [place] [address] Refuse Collector: Sravani Gordon MD #### VERONICA FERI #### [address] [address] Refuse Collector: Robi Veliz MD Erythrocyte distribution width (RBC) [Ratio] 13.2 % Normal 11.8-14.4 [facility] Comment on above: Performed By: #### C DP #### [facility] [address] [place] [address] Refuse Collector: Sravani Gordon MD #### VERONICA, FERI #### [address] [phone] Refuse Collector: Robi Veliz MD Hematocrit (Bld) [Volume fraction] 31.9 % Low 36.3-47.1 [facility] Comment on above: Performed By: #### C DP #### [facility] [address] [place] [address] [address] [place], [place] [phone] Refuse Collector: Sravani Gordon MD #### VERONICA, FERI #### [address] [phone] Refuse Collector: Robi Veliz MD Hemoglobin (Bld) [Mass/Vol] 10.3 g/dL Low 11.9-15.1 [facility] Comment on above: Performed By: #### C DP #### [address] [place] [phone] Refuse Collector: Sravani Gordon MD #### VERONICA FERI #### [address] [phone] Refuse Collector: Robi Veliz MD MCH (RBC) [Entitic mass] 31.7 pg Normal 25.2-33.5 [facility] Comment on above: Performed By: #### C DP #### [address] [place] [phone] Refuse Collector: Sravani Gordon MD #### VERONICA FERI #### [address] [address] Refuse Collector: Robi Veliz MD MCHC (RBC) [Mass/Vol] 32.3 g/dL Normal 28.4-34.8 [facility] Comment on above: Performed By: #### C DP #### [address] [place], [place] 3907983 Refuse Collector: Sravani Gordon MD #### VERONICA FERI #### [address] [phone] Refuse Collector: Robi Veliz MD MCV (RBC) [Entitic vol] 98.2 fL Normal 82.6-102.9 M [facility] Comment on above: Performed By: #### C DP #### [facility] [address] [place] [address] [address] [phone] Refuse Collector: Sravani Gordon MD #### VERONICA FERI #### [address] [phone] Refuse Collector: Robi Veliz MD NRBC Automated 0.0 per 100 WBC Normal 0.0 [facility] Comment on above: Performed By: #### C DP #### [address] [place] [phone] ( Refuse Collector: Sravani Gordon MD #### MILTON MARTIN #### [place] [address] Refuse Collector: Robi Veliz MD Platelet mean volume (Bld) [Entitic vol] 10.1 fL Normal 8.1-13.5 [facility] Comment on above: Performed By: #### C DP #### [address] [place] [phone] Refuse Collector: Sravani Gordon MD #### VERONICA FERI #### [place] [address] Refuse Collector: Robi Veliz MD Platelets (Bld) [#/Vol] 149 10*3/uL Normal 138-453 [facility] Comment on above: Performed By: #### C DP #### [address] [place] [phone] Refuse Collector: Sravani Gordon MD #### VERONICA FERI #### [address] [address] Refuse Collector: Robi Veliz MD RBC (Bld) [#/Vol] 3.25 10*6/uL Low 3.95-5.11 [facility] Comment on above: Performed By: #### C DP #### [facility] [address] [place] [address] Refuse Collector: Sravani Gordon MD #### VERONICA, MILTON #### [address] [place], [place] [phone] Refuse Collector: Robi Veliz MD WBC (Bld) [#/Vol] 8.5 10*3/uL Normal 3.5-11.3 [facility] Comment on above: Performed By: #### C DP #### [facility] [address] [place] [address] Refuse Collector: Sravani Gordon MD #### MILTON MARTIN #### [phone] [place], [place] [phone] Refuse Collector: Robi Veliz MD CT SHOULDER LEFT WO CONTRAST on 02-26-2023 CT SHOULDER LEFT WO CONTRAST EXAMINATION: CT OF THE LEFT SHOULDER WITHOUT CONTRAST 02/26/2023 8:52 am TECHNIQUE: CT of the left shoulder was performed without the administration of intravenous contrast. Multiplanar reformatted images are provided for review. Automated exposure control, iterative reconstruction, and/or weight based adjustment of the mA/kV was utilized to reduce the radiation dose to as low as reasonably achievable. COMPARISON: Radiographs dated 02/25/2023 HISTORY ORDERING SYSTEM PROVIDED HISTORY: pain TECHNOLOGIST PROVIDED HISTORY: pain Pain FINDINGS: The humeral head is located in relation to the bony glenoid. There is no evidence of acute fracture or dislocation. AC joint is normally aligned. There are small marginal AC joint osteophytes. There is no significant glenohumeral osteophyte formation. The acromiohumeral distance is preserved. A focal bony lesion is not appreciated. There is mild degenerative change of the thoracic spine. There is no significant rotator cuff atrophy. A joint effusion is not appreciated. There is a small left pleural effusion. There is hyperdense material within the esophagus. Scarring is noted at the left lung apex. IMPRESSION: No acute osseous abnormality. Mild left AC degenerative change. Small left pleural effusion. Dense material within the esophagus. The patient is at risk for aspiration. Interpreted by: Oziel Reed MD Signed by: Oziel Reed MD 02/26/23 Final result Normal [facility] Troponinon 02-26-2023 Troponin, High Sens 9 ng/L Normal 0-14 [facility] Comment on above: Result Comment: High Sensitivity Troponin values cannot be compared with other Troponin methodologies. Performed By: #### C DP #### [facility] [address] [place] [address] [place] [address] Refuse Collector: Sravani Gordon MD #### MILTON MARTIN #### [address] [phone] Refuse Collector: Robi Veliz MD CBC with Diffon 02-25-2023 Abs. Basophil 0.00 k/uL Normal 0.0-0.2 [facility] Comment on above: Performed By: #### C DP #### [facility] [address] [place] [address] [address] [place] [phone] Refuse Collector: Sravani Gordon MD #### MILTON MARTIN #### [address] [phone] Refuse Collector: Robi Veliz MD Abs.Imm.Granulocyte 0.00 k/uL Normal 0.00-0.30 [facility] Comment on above: Performed By: #### C DP #### [facility] [address] [place] [address] [place] [phone] Refuse Collector: Sravani Gordon MD #### MILTON MARTIN #### [address] [address] Refuse Collector: Robi Veliz MD Abs.Neutrophil (Seg) 15.07 k/uL High 1.50-8.10 [facility] Comment on above: Performed By: #### C DP #### [facility] [address] [place] [address] Refuse Collector: Sravani Gordon MD #### VERONICA FERI #### [address] [address] Refuse Collector: Robi Veliz MD Basophils/100 WBC (Bld) 0 % Normal 0-2 [facility] Comment on above: Performed By: #### C DP #### [facility] [address] [place] [address] [address] [place], [place] [phone] Refuse Collector: Sravani Gordon MD #### VERONICA FERI #### [address] [address] Refuse Collector: Robi Veliz MD Eosinophils (Bld) [#/Vol] 0.32 10*3/uL Normal 0.00-0.44 [facility] Comment on above: Performed By: #### C DP #### [address] [place], [place] [phone] Refuse Collector: Sravani Gordon MD #### VERONICA FERI #### [address] [address] Refuse Collector: Robi Veliz MD Eosinophils/100 WBC (Bld) 2 % Normal 1-4 [facility] Comment on above: Performed By: #### C DP #### [facility] [address] [place] [address] [address] [place], [place] [phone] Refuse Collector: Sravani Gordon MD #### VERONICA FERI #### [address] [address] Refuse Collector: Robi Veliz MD Immature granulocytes/100 WBC (Bld) 0 % Normal 0 [facility] Comment on above: Performed By: #### C DP #### [facility] [address] [place] [address] [place], [place] [phone] Refuse Collector: Sravani Gordon MD #### FEDESTINY, FERI #### [address] [place] [phone] Refuse Collector: Robi Veliz MD Lymphocytes (Bld) [#/Vol] 0.16 10*3/uL Low 1.10-3.70 [facility] Comment on above: Performed By: #### C DP #### [facility] [address] [place] [address] [address] [place] [phone] ( Refuse Collector: Sravani Gordon MD #### FEDESTINY, FERI #### [place] [address] Refuse Collector: Robi Veliz MD Lymphocytes/100 WBC (Bld) 1 % Low 24-43 [facility] Comment on above: Performed By: #### C DP #### [address] [place] [phone] ( Refuse Collector: Sravani Gordon MD #### VERONICA, FERI #### [place] [address] Refuse Collector: Robi Veliz MD Monocytes (Bld) [#/Vol] 0.65 10*3/uL Normal 0.10-1.20 [facility] Comment on above: Performed By: #### C DP #### [address] [place] [phone] ( Refuse Collector: Sravani Gordon MD #### VERONICA, FERI #### [place] [address] Refuse Collector: Robi Veliz MD Monocytes/100 WBC (Bld) 4 % Normal 3-12 M [facility] Comment on above: Performed By: #### C DP #### [address] [place] [phone] ( Refuse Collector: Sravani Gordon MD #### FEDESTINY, FERI #### [address] [place], [place] [phone] Refuse Collector: Robi Veliz MD Morphology Wicho (Bld) [Interp] Platelet clumps present, count appears adequate. Normal [facility] Comment on above: Performed By: #### C DP #### [facility] [address] [place] [address] [address] [place], [place] [phone] Refuse Collector: Sravani Gordon MD #### FEBC, FERI #### [address] [address] Refuse Collector: Robi Veliz MD Neutrophil (Seg) 93 % High 36-65 [facility] Comment on above: Performed By: #### C DP #### [address] [place], [place] [phone] Refuse Collector: Sravani Gordon MD #### VERONICA, FERI #### [address] [address] Refuse Collector: Robi Veilz MD Erythrocyte distribution width (RBC) [Ratio] 13.2 % Normal 11.8-14.4 [facility] Comment on above: Performed By: #### C DP #### [address] [place], [place] [phone] Refuse Collector: Sravani Gordon MD #### VERONICA, FERI #### [address] [address] Refuse Collector: Robi Veliz MD Hematocrit (Bld) [Volume fraction] 37.3 % Normal 36.3-47.1 [facility] Comment on above: Performed By: #### C DP #### [address] [place] [address] Refuse Collector: Sravani Gordon MD #### VERONICA, FERI #### [address] [place], [place] [phone] Refuse Collector: Robi Veliz MD Hemoglobin (Bld) [Mass/Vol] 12.2 g/dL Normal 11.9-15.1 [facility] Comment on above: Performed By: #### C DP #### [facility] [address] [place] [address] [place] [address] Refuse Collector: Sravani Gordon MD #### VERONICA, FERI #### [address] [place], [place] [phone] Refuse Collector: Robi Veliz MD MCH (RBC) [Entitic mass] 31.6 pg Normal 25.2-33.5 [facility] Comment on above: Performed By: #### C DP #### [address] [place] [address] Refuse Collector: Sravani Gordon MD #### VERONICA, FERI #### [address] [phone] Refuse Collector: Robi Veliz MD MCHC (RBC) [Mass/Vol] 32.7 g/dL Normal 28.4-34.8 [facility] Comment on above: Performed By: #### C DP #### [address] [place] [address] Refuse Collector: Sravani Gordon MD #### VERONICA, FERI #### [address] [phone] Refuse Collector: Robi Veliz MD MCV (RBC) [Entitic vol] 96.6 fL Normal 82.6-102.9 [facility] Comment on above: Performed By: #### C DP #### [address] [place] [address] Refuse Collector: Sravani Gordon MD #### VERONICA, FERI #### [address] [place] [address] Refuse Collector: Robi Veliz MD NRBC Automated 0.0 per 100 WBC Normal 0.0 [facility] Comment on above: Performed By: #### C DP #### [facility] [address] [place] [address] [address] [place], [place] [phone] Refuse Collector: Sravani Gordon MD #### VERONICA FERI #### [address] [address] Refuse Collector: Robi Veliz MD Platelet mean volume (Bld) [Entitic vol] 9.7 fL Normal 8.1-13.5 [facility] Comment on above: Performed By: #### C DP #### [facility] [address] [place] [address] [address] [place], [place] [phone] Refuse Collector: Sravani Gordon MD #### VERONICA FERI #### [address] [address] Refuse Collector: Robi Veliz MD Platelets (Bld) [#/Vol] 201 10*3/uL Normal 138-453 [facility] Comment on above: Performed By: #### C DP #### [facility] [facility] [address] [place] [address] Dr[place], [place] [id number] Refuse Collector: Sravani Gordon MD #### VERONICA FERI #### [address] [address] Refuse Collector: Robi Veliz MD RBC (Bld) [#/Vol] 3.86 10*6/uL Low 3.95-5.11 [facility] Comment on above: Performed By: #### C DP #### [facility] [address] [place] [address] Dr[address] [place], [place] [id number] Refuse Collector: Sravani Gordon MD #### VERONICA FERI #### [address] [address] Refuse Collector: Robi Veliz MD WBC (Bld) [#/Vol] 16.2 10*3/uL High 3.5-11.3 [facility] Comment on above: Performed By: #### C DP #### [facility] [address] [place] [address] Refuse Collector: Sravani Gordon MD #### VERONICA, FERI #### [address] [address] Refuse Collector: Robi Veliz MD Comp Metabolic Profon 2022 Albumin [Mass/Vol] 3.6 g/dL Normal 3.5-5.2 [facility] Comment on above: Performed By: #### C DP #### [facility] [address] [place] [address] [address] [place], [place] [id number] Refuse Collector: Sravani Gordon MD #### VERONICA, FERI #### [address] [address] Refuse Collector: Robi Veliz MD Albumin/Glob Ratio 1.6 Normal 1.0-2.5 [facility] Comment on above: Performed By: #### C DP #### [facility] [address] [place] [address] [place] [address] Refuse Collector: Sravani Gordon MD #### VERONICA, FERI #### [address] [address] Refuse Collector: Robi Veliz MD Alkaline Phos 78 U/L Normal 35-104 [facility] Comment on above: Performed By: #### C DP #### [facility] [address] [place] [address] [place] [address] Refuse Collector: Sravani Gordon MD #### VERONICA, FERI #### [address] [address] Refuse Collector: Robi Veliz MD ALT [Catalytic activity/Vol] 44 U/L High 5-33 [facility] Comment on above: Performed By: #### C DP #### [facility] [address] [place], [place] [phone] Refuse Collector: Sravani Gordon MD #### VERONICA, FERI #### [facility] [address] [place] [address] Refuse Collector: Robi Veliz MD Anion gap [Moles/Vol] 13 mmol/L Normal 9-17 [facility] Comment on above: Performed By: #### C DP #### [facility] [address] [place], [place] [phone] Refuse Collector: Sravani Gordon MD #### VERONICA, FERI #### [address] [address] Refuse Collector: Robi Veliz MD AST [Catalytic activity/Vol] 59 U/L High <32 [facility] Comment on above: Performed By: #### C DP #### [facility] [address] [place], [place] [id number] Refuse Collector: Sravani Gordon MD #### VERONICA, FERI #### [address] [address] Refuse Collector: Robi Veliz MD Bilirubin [Mass/Vol] 0.2 mg/dL Low 0.3-1.2 [facility] Comment on above: Performed By: #### C DP #### [facility] [address] [place], [place] [id number] Refuse Collector: Sravani Gordon MD #### FEDESTINY, FERI #### [address] [place] [address] Refuse Collector: Robi Veliz MD BUN/CRE Ratio 16 Normal 9-20 [facility] Comment on above: Performed By: #### C DP #### [facility] [address] [place], [place] 0021183 Refuse Collector: Sravani Gordon MD #### MILTON MARTIN #### [address] [place] [address] Refuse Collector: Robi Veliz MD Calcium [Mass/Vol] 8.6 mg/dL Normal 8.6-10.4 [facility] Comment on above: Performed By: #### C DP #### [facility] [address] [place], [place] [id number] Refuse Collector: Sravani Gordon MD #### MILTON MARTIN #### [address] [address] Refuse Collector: Robi Veliz MD Chloride [Moles/Vol] 98 mmol/L Normal 98-107 [facility] Comment on above: Performed By: #### C DP #### [facility] [address] [place] [address] [place] [address] Refuse Collector: Sravani Gordon MD #### MILTON MARTIN #### [address] [address] Refuse Collector: Robi Veliz MD CO2 [Moles/Vol] 24 mmol/L Normal 20-31 [facility] Comment on above: Performed By: #### C DP #### [facility] [address] [place] [address] Refuse Collector: Sravani Gordon MD #### MILTON MARTIN #### [address] [address] Refuse Collector: Robi Veliz MD Creatinine [Mass/Vol] 1.5 mg/dL High 0.5-0.9 [facility] Comment on above: Performed By: #### C DP #### [facility] [address] [place], [place] [phone] Refuse Collector: Sravani Gordon MD #### MILTON MARTIN #### [address] [phone] Refuse Collector: Robi Veliz MD GFR/1.73 sq M.predicted among non-blacks MDRD (S/P/Bld) [Vol rate/Area] 38 mL/min/{1.73_m2} Low >60 [facility] Comment on above: Result Comment: These results are not intended for use in patients <18 years of age. eGFR results are calculated without a race factor using the 2020 CKD-EPI equation. Careful clinical correlation is recommended, particularly when comparing to results calculated using previous equations. The CKD-EPI equation is less accurate in patients with extremes of muscle mass, extra-renal metabolism of creatine, excessive creatine ingestion, or following therapy that affects renal tubular secretion. Performed By: #### C DP #### [address] [place] [address] Refuse Collector: Sravani Gordon MD #### MILTON MARTIN #### [address] [phone] Refuse Collector: Robi Veliz MD Glucose [Mass/Vol] 124 mg/dL High 70-99 [facility] Comment on above: Performed By: #### C DP #### [address] [place], [place] [id number] Refuse Collector: Sravani Gordon MD #### MILTON MARTIN #### [address] [address] Refuse Collector: Robi Veliz MD Potassium [Moles/Vol] 4.8 mmol/L Normal 3.7-5.3 [facility] Comment on above: Performed By: #### C DP #### [address] [place] [address] Refuse Collector: Sravani Gordon MD #### FEDESTINY, FERI #### [address] [place], [place] [phone] Refuse Collector: Robi Veliz MD Protein [Mass/Vol] 5.8 g/dL Low 6.4-8.3 [facility] Comment on above: Performed By: #### C DP #### [facility] [address] [place], [place] [id number] Refuse Collector: Sravani Gordon MD #### VERONICA, FERI #### [address] [place], [place] [phone] Refuse Collector: Robi Veliz MD Sodium [Moles/Vol] 135 mmol/L Normal 135-144 [facility] Comment on above: Performed By: #### C DP #### [facility] [address] [place], [place] 9336083 Refuse Collector: Sravani Gordon MD #### VERONICA, FERI #### [address] [address] Refuse Collector: Robi Veliz MD Urea nitrogen [Mass/Vol] 24 mg/dL High 8-23 [facility] Comment on above: Performed By: #### C DP #### [facility] [address] [place], [place] [phone] Refuse Collector: Sravani Gordon MD #### VERONICA, FERI #### [address] [place] [address] Refuse Collector: Robi Veliz MD Troponinon 02-25-2023 Troponin, High Sens 8 ng/L Normal 0-14 [facility] Comment on above: Result Comment: High Sensitivity Troponin values cannot be compared with other Troponin methodologies. Performed By: #### C DP #### [facility] [address] [place], [place] 9589083 Refuse Collector: Sravani Gordon MD #### FEBC, FERI #### [facility] [address] [place], [place] [phone] Refuse Collector: Robi Veliz MD UA w/Reflex Cultureon 2022 Bilirubin, SemiQt,Ur Negative Normal NEG [facility] Comment on above: Performed By: #### U AX, UMICAO #### [facility] [address] [place] [address] Dr. [place], [place] [phone] Refuse Collector: Sravani Gordon MD Blood, Urine Negative Normal NEG [facility] Comment on above: Performed By: #### U AX, UMICAO #### [address] [place], [place] 0482983 Refuse Collector: Sravani Gordon MD Clarity (U) Clear Normal CLEAR [facility] Comment on above: Performed By: #### U AX, UMICAO #### [address] [place], [place] [phone] Refuse Collector: Sravani Gordon MD Color (U) Yellow Normal YEL [facility] Comment on above: Performed By: #### U AX, UMICAO #### [address] [place], [place] [phone] Refuse Collector: Sravani Gordon MD Glucose Ql (U) Negative Normal NEG [facility] Comment on above: Performed By: #### U AX, UMICAO #### [address] [place], [place] 9147583 Refuse Collector: Sravani Gordon MD Ketones Ql (U) Negative Normal NEG [facility] Comment on above: Performed By: #### U AX, UMICAO #### [address] [place], [place] 5183483 Refuse Collector: Sravani Gordon MD Leukocyte esterase Test strip Ql (U) Negative Normal NEG [facility] Comment on above: Performed By: #### U AX, UMICAO #### [facility] [address] [place] [address] [place] [address] Refuse Collector: Sravani Gordon MD Nitrite,Ur Negative Normal NEG [facility] Comment on above: Performed By: #### U AX, UMICAO #### [facility] [address] [place] [address] [place] [address] Refuse Collector: Sravani Gordon MD PH,Ur 6.0 Normal 5.0-9.0 [facility] Comment on above: Performed By: #### U AX, UMICAO #### [address] [place] [address] Refuse Collector: Sravani Gordon MD Protein Ql (U) Negative Normal NEG [facility] Comment on above: Performed By: #### U AX, UMICAO #### [address] [place] [address] Refuse Collector: Sravani Gordon MD Spec. [place],Ur <1.005 Low 1.010-1.020 [facility] Comment on above: Performed By: #### U AX, UMICAO #### [address] [place] [address] Refuse Collector: Sravani Gordon MD Urobilinogen,Ur Normal Normal 0.0-1.0 [facility] Comment on above: Performed By: #### U AX, UMICAO #### [address] [place] [address] Refuse Collector: Sravani Gordon MD Urinalysis,Microon 3 Amorphous sediment LM Ql (Urine sed) 1+ Abnormal [facility] Comment on above: Performed By: #### U AX, UMICAO #### [address] [place] [address] Refuse Collector: Sravani Gordon MD Bacteria 1+ Abnormal [facility] Comment on above: Performed By: #### U AX, UMICAO #### [facility] [address] [place], [place] 0008283 Refuse Collector: Sravani Gordon MD Epithelial cells LM Ql (Urine sed) 0 TO 2 Normal 0-25 [facility] Comment on above: Performed By: #### U AX, UMICAO #### [facility] [address] [place], [place] [phone] Refuse Collector: Sravani Gordon MD Urine RBC's 0 TO 2 Normal 0-2 [facility] Comment on above: Performed By: #### U AX, UMICAO #### [facility] [address] [place], [place] 9643583 Refuse Collector: Sravani Gordon MD Urine WBC's 0 TO 2 Normal 0-5 [facility] Comment on above: Performed By: #### U AX, UMICAO #### [facility] [address] [place] [address] Refuse Collector: Sravani Gordon MD XR CHEST (2 VW)on 02-25-2023 XR CHEST (2 VW) EXAMINATION: TWO XRAY VIEWS OF THE CHEST 02/25/2023 1:10 pm COMPARISON: September 28, 2020 HISTORY: ORDERING SYSTEM PROVIDED HISTORY: Syncope TECHNOLOGIST PROVIDED HISTORY: Syncope FINDINGS: The cardiomediastinal silhouette is normal in size. The lungs are clear. No pleural effusion or pneumothorax. No subdiaphragmatic free air is present. IMPRESSION: No acute cardiopulmonary process. Interpreted by: Sravani Cohen MD Signed by: Sravani Cohen MD 02/25/23 Final result Normal [facility] XR SHOULDER LEFT (MIN 2 VIEW S)on 02-25-2023 XR SHOULDER LEFT (MIN 2 VIEWS) EXAMINATION: 3 XRAY VIEWS OF THE LEFT SHOULDER 02/25/2023 12:28 pm COMPARISON: None HISTORY: ORDERING SYSTEM PROVIDED HISTORY: pain TECHNOLOGIST PROVIDED HISTORY: pain Left shoulder pain FINDINGS: No acute fracture or dislocation. Joint alignment and joint spaces are maintained. No erosions are present. No evidence of rotator cuff calcification. IMPRESSION: No acute osseous abnormality of the left shoulder. Interpreted by: Sravani Cohen MD Signed by: Sravani Cohen MD 02/25/23 Final result Normal [facility] CBC with Auto Differentialon 10-06-2022 Basophils (Bld) [#/Vol] 0.09 10*3/uL [facility] Basophils/100 WBC (Bld) 2 % 0 - 2 % [facility] Eosinophils (Bld) [#/Vol] 0.45 10*3/uL High [facility] Eosinophils/100 WBC (Bld) 9 % High 1 - 4 % [facility] Erythrocyte distribution width (RBC) [Ratio] 12.8 % 11.8 - 14.4 % [facility] Hematocrit (Bld) [Volume fraction] 41.2 % 36.3 - 47.1 % [facility] Hemoglobin (Bld) [Mass/Vol] 13.4 g/dL 11.9 - 15.1 g/dL [facility] Immature granulocytes (Bld) [#/Vol] [facility] Immature granulocytes/100 WBC (Bld) 0 % 0 [facility] Interpretation and review of laboratory results Abnormal [facility] Lymphocytes/100 WBC (Bld) 24 % 24 - 43 % [facility] Lymphocytes/100 WBC (Bld) 1.22 % [facility] MCH (RBC) [Entitic mass] 31.8 pg 25.2 - 33.5 pg [facility] MCHC (RBC) [Mass/Vol] 32.5 g/dL 28.4 - 34.8 g/dL [facility] MCV (RBC) [Entitic vol] 97.9 fL 82.6 - 102.9 fL [facility] Monocytes/100 WBC (Bld) 12 % 3 - 12 % [facility] Monocytes/100 WBC (Bld) 0.62 % [facility] Neutrophils/100 WBC (Bld) 53 % 36 - 65 % [facility] Nucleated RBC/100 WBC (Bld) [Ratio] 0.0 % 0.0 per 100 WBC [facility] Platelet mean volume (Bld) [Entitic vol] 9.8 fL 8.1 - 13.5 fL [facility] Platelets (Bld) [#/Vol] 278 10*3/uL [facility] RBC (Bld) [#/Vol] 4.21 10*6/uL 3.95 - 5.1 1 m/uL [facility] Segmented neutrophils/100 WBC (Bld) 2.68 % [facility] WBC other (Bld) [#/Vol] 5.1 B ON [facility] Ferritinon 10-06-2022 Ferritin [Mass/Vol] 41 ng/mL 13 - 150 ng/mL [facility] Iron and TIBCon 10-06-2022 Iron [Mass/Vol] 102 ug/dL 37 - 145 ug/dL [facility] Iron binding capacity [Mass/Vol] 318 ug/dL 250 - 450 ug/dL [facility] Iron saturation [Mass fraction] 32 % 20 - 55 % [facility] UIBC 216 ug/dL 112 - 347 ug/dL [facility] No Panel Informationon 10-06 [facility] EKG 12 LeadOrdered By: Monique sidhu on 05-10-2022 Atrial Rate 90 BPM [facility] Work Phone: P [place] 68 degrees [facility] Work Phone: P-R Interval 142 ms [facility] Work Phone: Q-T Interval 326 ms [facility] Work Phone: QRS Duration 70 ms [facility] Work Phone: QTc Calculation (Bazett) 398 ms [facility] Work Phone: R [place] -11 degrees [facility] Work Phone: T [place] 46 degrees [facility] Work Phone: Ventricular Rate 90 BPM [facility] Work Phone: [facility] Work Phone: EKG 12 Leadon 05-10-2022 Normal sinus rhythm Nonspecific ST and T wave abnormality Abnormal ECG No previous ECGs available Confirmed by Monique Paz MD ([id number]) on 05/10/2022 9:38:39 PM [facility] Monique Paz MD - 05/10/2022 Normal sinus rhythm Nonspecific ST and T wave abnormality Abnormal ECG No previous ECGs available Confirmed by Monique Paz MD ([id number]) on 05/10/2022 9:38:39 PM [place] Phone: US LIVERon 05-10-2022 Unremarkable right upper quadrant ultrasound. [facility] EXAMINATION: RIGHT UPPER QUADRANT ULTRASOUND 05/10/2022 10:08 am COMPARISON: None. HISTORY: ORDERING SYSTEM PROVIDED HISTORY: Abnormal results of liver function studies FINDINGS: LIVER: The liver demonstrates normal echogenicity without evidence of intrahepatic biliary ductal dilatation. Hepatopetal flow portal vein. BILIARY SYSTEM: Gallbladder is unremarkable without evidence of pericholecystic fluid, wall thickening or stones. Negative sonographic Segura's sign. Common bile duct is within normal limits measuring 5.7 mm. RIGHT KIDNEY: The right kidney is grossly unremarkable without evidence of hydronephrosis. PANCREAS: Visualized portions of the pancreas are unremarkable. OTHER: No evidence of right upper quadrant ascites. [facility] Bg SuazoyDO - 05/10/2022 EXAMINATION: RIGHT UPPER QUADRANT ULTRASOUND 05/10/2022 10:08 am COMPARISON: None. HISTORY: ORDERING SYSTEM PROVIDED HISTORY: Abnormal results of liver function studies FINDINGS: LIVER: The liver demonstrates normal echogenicity without evidence of intrahepatic biliary ductal dilatation. Hepatopetal flow portal vein. BILIARY SYSTEM: Gallbladder is unremarkable without evidence of pericholecystic fluid, wall thickening or stones. Negative sonographic Segura's sign. Common bile duct is within normal limits measuring 5.7 mm. RIGHT KIDNEY: The right kidney is grossly unremarkable without evidence of hydronephrosis. PANCREAS: Visualized portions of the pancreas are unremarkable. OTHER: No evidence of right upper quadrant ascites. IMPRESSION: Unremarkable right upper quadrant ultrasound. [place] Phone: Radiology Study observation (narrative) [facility] D[facility]AZ [facility] Work Phone: LIVEROrdered By: Keron thompson on 05-10-2022 [facility] Work Phone: Rapid influenza A/B antigens on 05-02-2022 FLUAV Ag Ql (Unsp spec) Negative NEGATIVE [facility] Comment on above: for Influenza A Anti gen FLUBV Ag Ql (Unsp spec) Negative NEGATIVE [facility] Comment on above: for Influenza B Anti gen. [facility] CBC with Auto Differentialon 04-28-2022 Absolute Eos # 0.56 High [place] [facility] Absolute Immature Granulocyte [facility] Absolute Lymph # 0.64 Low [facility] ARJUN [facility] Absolute Meeker # 0.63 [facility] Basophils (Bld) [#/Vol] 0.04 10*3/uL [facility] Basophils/100 WBC (Bld) 1 % 0 - 2 % [facility] Eosinophils/100 WBC (Bld) 9 % High 1 - 4 % [facility] Hematocrit (Bld) [Volume fraction] 40.9 % 36.3 - 47.1 % [facility] Hemoglobin (Bld) [Mass/Vol] 13.4 g/dL 11.9 - 15.1 g/dL [facility] Immature granulocytes/100 WBC (Bld) 0 % 0 [facility] Interpretation and review of laboratory results Abnormal [facility] Lymphocytes/100 WBC (Bld) 10 % Low 24 - 43 % [facility] MCH (RBC) [Entitic mass] 31.9 pg 25.2 - 33.5 pg [facility] MCHC (RBC) [Mass/Vol] 32.8 g/dL 28.4 - 34.8 g/dL [facility] MCV (RBC) [Entitic vol] 97.4 fL 82.6 - 102.9 fL [facility] Monocytes/100 WBC (Bld) 10 % 3 - 12 % [facility] NRBC Automated 0.0 0.0 per 100 WBC [facility] Platelet distribution width (Bld) [Ratio] 12.9 % 11.8 - 14.4 % [facility] Platelet mean volume (Bld) [Entitic vol] 10.5 fL 8.1 - 13.5 fL [facility] Platelets (Bld) [#/Vol] 158 10*3/uL [facility] RBC (Bld) [#/Vol] 4.20 10*6/uL 3.95 - 5.1 1 m/uL [facility] Segmented neutrophils/100 WBC (Bld) 70 % High 36 - 65 % [facility] Segs Absolute 4.41 [facility] WBC (Bld) [#/Vol] 6.3 10*3/uL [facility] Comprehensive Metabolic Pane mauricio 04-28-2022 Albumin [Mass/Vol] 3.8 g/dL 3.5 - 5.2 g/dL [facility] Albumin/Globulin [Mass ratio] 1.1 {ratio} 1.0 - 2.5 [facility] ALP [Catalytic activity/Vol] 178 U/L High 35 - 104 U/L [facility] ALT [Catalytic activity/Vol] 412 U/L High 5 - 33 U/L [facility] Anion gap [Moles/Vol] 14 mmol/L 9 - 17 mmol/L [facility] AST [Catalytic activity/Vol] 106 U/L High NINF - 32 U/L [facility] Bilirubin [Mass/Vol] 0.3 mg/dL 0.3 - 1 .2 mg/dL [facility] Calcium [Mass/Vol] 9.6 mg/dL 8.6 - 10. 4 mg/dL [facility] Chloride [Moles/Vol] 103 mmol/L 98 - 10 7 mmol/L [facility] CO2 [Moles/Vol] 24 mmol/L 20 - 31 mmol/L [facility] Creatinine [Mass/Vol] 0.76 mg/dL 0.50 - 0.90 mg/dL [facility] GFR/1.73 sq M.predicted MDRD (S/P/Bld) [Vol rate/Area] - PINF [facility] Comment on above: These results are not intended for use in patients <18 years of age. eGFR results are calculated without a race factor using the 2020 CKD-EPI equation. Careful clinical correlation is recommended, particularly when comparing to results calculated using previous equations. The CKD-EPI equation is less accurate in patients with extremes of muscle mass, extra-renal metabolism of creatine, excessive creatine ingestion, or following therapy that affects renal tubular secretion. Glucose [Mass/Vol] 111 mg/dL High 70 - 99 mg/dL [facility] Interpretation and review of laboratory results Abnormal [facility] Potassium [Moles/Vol] 3.9 mmol/L 3.7 - 5.3 mmol/L [facility] Protein [Mass/Vol] 7.2 g/dL 6.4 - 8.3 g/dL [facility] Sodium [Moles/Vol] 141 mmol/L 135 - 144 mmol/L [facility] Urea nitrogen [Mass/Vol] 15 mg/dL 8 - 23 mg/dL [facility] Urea nitrogen/Creatinine (Bld) [Mass ratio] 20 9 - 20 [facility] [employer] [facility] [employer] Lipid Panelon 04-28-2022 Cholesterol [Mass/Vol] 288 mg/dL High NINF - 200 mg/dL [facility] Comment on above: Cholesterol Guidelines: <200 Desirable 200-240 Borderline >240 Undesirable Cholesterol in HDL [Mass/Vol] 60 mg/dL 40 - PINF mg/dL [facility] Comment on above: HDL Guidelines: <40 Undesirable 40-59 Borderline >59 Desirable Cholesterol in LDL [Mass/Vol] 196 mg/dL High 0 - 130 mg/dL [facility] [employer] [facility] Comment on above: LDL Guidelines: <100 Desirable 100-129 Near to/above Desirable 130-159 Borderline >159 Undesirable Direct (measured) LDL and calculated LDL are not interchangeable tests. Cholesterol.total/Cynthia sterol in HDL [Mass ratio] 4.8 {ratio} NINF - 5 [facility]EDLeadhitPAR[facility] Interpretation and review of laboratory results Abnormal [facility] Triglyceride [Mass/Vol] 160 mg/dL High NINF - 150 mg/dL [facility] Comment on above: Triglyceride Guidelines: <150 Desirable 150-199 Borderline 200-499 High >499 Very high Based on AHA Guidelines for fasting triglyceride, December 2011. [facility] CBC with Auto Differentialon 12-01-2021 Absolute Eos # 0.31 [place] [facility] Absolute Immature Granulocyte [facility] Absolute Lymph # 1.24 [facility] Absolute Meeker # 0.43 [facility] RS [facility] Basophils (Bld) [#/Vol] 0.07 10*3/uL [facility] Basophils/100 WBC (Bld) 2 % 0 - 2 % [facility] Eosinophils/100 WBC (Bld) 7 % High 1 - 4 % [facility] Hematocrit (Bld) [Volume fraction] 39.7 % 36.3 - 47.1 % [facility] Hemoglobin (Bld) [Mass/Vol] 13.1 g/dL 11.9 - 15.1 g/dL [facility] Immature granulocytes/100 WBC (Bld) 0 % 0 [facility] Interpretation and review of laboratory results Abnormal [facility] Lymphocytes/100 WBC (Bld) 28 % 24 - 43 % [facility] MCH (RBC) [Entitic mass] 32.1 pg 25.2 - 33.5 pg [facility] MCHC (RBC) [Mass/Vol] 33.0 g/dL 28.4 - 34.8 g/dL [facility] MCV (RBC) [Entitic vol] 97.3 fL 82.6 - 102.9 fL [facility] Monocytes/100 WBC (Bld) 10 % 3 - 12 % [facility] NRBC Automated 0.0 0.0 per 100 WBC [facility] Platelet distribution width (Bld) [Ratio] 12.1 % 11.8 - 14.4 % [facility] Platelet mean volume (Bld) [Entitic vol] 9.9 fL 8.1 - 13.5 fL [facility] Platelets (Bld) [#/Vol] 271 10*3/uL [facility] RBC (Bld) [#/Vol] 4.08 10*6/uL 3.95 - 5.1 1 m/uL [facility] Segmented neutrophils/100 WBC (Bld) 53 % 36 - 65 % [facility] Segs Absolute 2.41 [facility] WBC (Bld) [#/Vol] 4.5 10*3/uL [facility] Comprehensive Metabolic Pane mauricio 12-01-2021 Albumin [Mass/Vol] 4 g/dL 3.5 - 5.2 g/dL [facility] Albumin/Globulin [Mass ratio] 1.8 {ratio} 1 - 2.5 [facility] ALP (Bld) [Catalytic activity/Vol] 83 U/L 35 - 104 U/L [facility] ALT [Catalytic activity/Vol] 15 U/L 5 - 33 U/L [facility] Anion gap [Moles/Vol] 9 mmol/L 9 - 17 mmol/L [facility] AST [Catalytic activity/Vol] 15 U/L NINF - 32 U/L [facility] Bilirubin [Mass/Vol] 0.2 mg/dL Low 0.3 - 1 .2 mg/dL [facility] Calcium [Mass/Vol] 8.8 mg/dL 8.6 - 10. 4 mg/dL [facility] Chloride [Moles/Vol] 107 mmol/L 98 - 10 7 mmol/L [facility] CO2 [Moles/Vol] 27 mmol/L 20 - 31 mmol/L [facility] Creatinine [Mass/Vol] 0.64 mg/dL 0.5 - 0.9 mg/dL [facility] Free PSA/Total PSA [Mass fraction] 6.2 g/dL Low 6.4 - 8.3 g/dL [facility] GFR >60 60 - PI NF mL/min [facility] GFR Non- >60 60 - PINF mL/min [facility] Glucose [Mass/Vol] 100 mg/dL High 70 - 99 mg/dL [facility] Interpretation and review of laboratory results Abnormal [facility] Potassium [Moles/Vol] 3.9 mmol/L 3.7 - 5.3 mmol/L [facility] Sodium [Moles/Vol] 143 mmol/L 135 - 144 mmol/L [facility] Urea nitrogen (BldV) [Mass/Vol] 8 mg/dL 8 - 23 mg/dL [facility] Urea nitrogen/Creatinine (Bld) [Mass ratio] 13 9 - 20 [facility] Laboratory - Chemistry and C hemistry - challengeon 12-01-2021 GFR/1.73 sq M.predicted MDRD (S/P/Bld) [Vol rate/Area] [facility] Comment on above: Average GFR for 60-6 9 years old: 85 mL/min/1.73sq m Chronic Kidney Disease: <60 mL/min/1.73sq m Kidney failure: <15 mL/min/1.73sq m eGFR calculated using average adult body mass. Additional eGFR calculator available at: http://www.[employer] [address]/multiple_crcl_2012.htm Stage 1: Some kidney damage normal GFR Stage 2: Mild kidney damage GFR 60-89 Stage 3: Moderate kidney damage GFR 30-59 Stage 4: Severe kidney damage GFR 15-29 Stage 5: Severe kidney damage GFR <15 ESRD - chronic treatment by dialysis or transplant Lipid Panelon 12-01-2021 Cholesterol [Mass/Vol] 229 mg/dL High NINF - 200 mg/dL [facility] Comment on above: Cholesterol Guidelines: <200 Desirable 200-240 Borderline >240 Undesirable Cholesterol in HDL [Mass/Vol] 42 mg/dL 40 - PINF mg/dL [facility] Comment on above: HDL Guidelines: <40 Undesirable 40-59 Borderline >59 Desirable Cholesterol in LDL [Mass/Vol] 149 mg/dL High 0 - 130 mg/dL [facility] Comment on above: LDL Guidelines: <100 Desirable 100-129 Near to/above Desirable 130-159 Borderline >159 Undesirable Direct (measured) LDL and calculated LDL are not interchangeable tests. Cholesterol.total/Cynthia sterol in HDL [Mass ratio] 5.5 {ratio} High NINF - 5 [facility] Interpretation and review of laboratory results Abnormal [facility] Triglyceride [Mass/Vol] 189 mg/dL High NINF - 150 mg/dL [facility] Comment on above: Triglyceride Guidelines: <150 Desirable 150-199 Borderline 200-499 High >499 Very high Based on AHA Guidelines for fasting triglyceride, December 2011. HUMAIRA THAKKAR [facility] HEMOGLOBINon 04-13-2021 Hemoglobin (Bld) [Mass/Vol] 14.3 g/dL Normal 12.0-16.0 [facility] Comment on above: Performed By: #### H GB #### [facility] Laboratory [address] [address] [address] Silvestre Bender CBC Auto Differentialon 01-24 Absolute Eos # 1.38 High [facility] th Absolute Immature Granulocyte 0.00 [facility] Absolute Lymph # 0.64 Low [facility] alth Absolute Meeker # 0.55 [facility] Basophils (Bld) [#/Vol] 0.00 10*3/uL [facility] [place] Basophils/100 WBC (Bld) 0 % 0 - 2 % ROAM Data Differential Type NOT REPORTED [facility] [place] Eosinophils/100 WBC (Bld) 15 % High 1 - 4 % [facility] [place] Hematocrit (Bld) [Volume fraction] 46.5 % 36.3 - 47.1 % [facility] Hemoglobin.gastrointest inal spec 1 Ql (Stl) 15.2 g/dL High 11.9 - 15.1 g/dL [facility] Immature granulocytes/100 WBC (Bld) 0 % 0 [facility] Interpretation and review of laboratory results Abnormal [facility] Lymphocytes/100 WBC (Bld) 7 % Low 24 - 43 % [facility] [place] MCH (RBC) [Entitic mass] 32.2 pg 25.2 - 33.[address] [facility] [place] MCHC (RBC) [Mass/Vol] 32.7 g/dL 28.4 - 34.8 g/dL [facility] [place] MCV (RBC) [Entitic vol] 98.5 fL 82.6 - 102.9 fL [facility] Monocytes/100 WBC (Bld) 6 % 3 - 12 % [facility] Data Morphology Wicho (Bld) [Interp] Normal [facility] [place] NRBC Automated 0.0 0.0 per 100 WBC [facility] Platelet distribution width (Bld) [Ratio] 12.0 % 11.8 - 14.4 % [facility] Platelet Estimate NOT REPORTED [facility] Platelet mean volume (Bld) [Entitic vol] 10.4 fL 8.1 - 13.5 fL [employer] Platelets (Bld) [#/Vol] 217 10*3/uL [facility] RBC (Bld) [#/Vol] 4.72 10*6/uL 3.95 - 5.1 1 m/uL [facility] RBC (Bld) [#/Vol] NOT REPORTED [facility] Segmented neutrophils/100 WBC (Bld) 72 % High 36 - 65 % [facility] [place] Segs [facility] 6.63 [facility] (Bld[facility] [#/Vol] 9.2 10*3/uL [facility] WBC (Bld) [#/Vol] NOT REPORTED [facility] Comprehensive Metabolic Pane mauricio 02-10-2021 Albumin [Mass/Vol] 4.3 g/dL 3.5 - 5.2 g/dL [facility] Albumin/Globulin [Mass ratio] 1.6 {ratio} [facility] ALP (Bld) [Catalytic activity/Vol] 151 U/L High 35 - 104 U/L [facility] ALT [Catalytic activity/Vol] 45 U/L High 5 - 33 U/L [facility] Anion gap [Moles/Vol] 12 mmol/L 9 - 17 mmol/L [facility] AST [Catalytic activity/Vol] 35 U/L High <32 [facility] Bilirubin [Mass/Vol] 0.34 mg/dL 0.3 - 1 .2 mg/dL [facility] Calcium [Mass/Vol] 9.7 mg/dL 8.6 - 10. 4 mg/dL [facility] Chloride [Moles/Vol] 105 mmol/L 98 - 10 7 mmol/L [facility] CO2 [Moles/Vol] 28 mmol/L 20 - 31 mmol/L [facility] Creatinine [Mass/Vol] 0.85 mg/dL 0.50 - 0.90 mg/dL [facility] Free PSA/Total PSA [Mass fraction] 7.0 g/dL 6.4 - 8.3 g/dL [facility] GFR >60 >60 mL/min [facility] GFR Non- >60 >60 mL/min [facility] Glucose [Mass/Vol] 125 mg/dL High 70 - 99 mg/dL [facility] Interpretation and review of laboratory results Abnormal [facility] Potassium [Moles/Vol] 4.2 mmol/L 3.7 - 5.3 mmol/L [facility] Sodium [Moles/Vol] 145 mmol/L High 135 - 144 mmol/L [facility] Urea nitrogen (BldV) [Mass/Vol] 10 mg/dL 8 - 23 mg/dL [facility] Urea nitrogen/Creatinine (Bld) [Mass ratio] 12 [facility] Laboratory - Chemistry and C hemistry - challengeon 02-10-2021 GFR/1.73 sq M.predicted MDRD (S/P/Bld) [Vol rate/Area] [facility] Comment on above: Average GFR for 60-6 9 years old: 85 mL/min/1.73sq m Chronic Kidney Disease: <60 mL/min/1.73sq m Kidney failure: <15 mL/min/1.73sq m eGFR calculated using average adult body mass. Additional eGFR calculator available at: http://www.[address]/multiple_crcl_2012.htm Stage 1: Some kidney damage normal GFR Stage 2: Mild kidney damage GFR 60-89 Stage 3: Moderate kidney damage GFR 30-59 Stage 4: Severe kidney damage GFR 15-29 Stage 5: Severe kidney damage GFR <15 ESRD - chronic treatment by dialysis or transplant Lipid Panelon 02-10-2021 Cholesterol [Mass/Vol] 182 mg/dL <200 [facility] Comment on above: Cholesterol Guidelines: <200 Desirable 200-240 Borderline >240 Undesirable Cholesterol in HDL [Mass/Vol] 57 mg/dL >40 [facility] Comment on above: HDL Guidelines: <40 Undesirable 40-59 Borderline >59 Desirable Cholesterol in LDL [Mass/Vol] 98 mg/dL 0 - 130 mg/dL [facility] Comment on above: LDL Guidelines: <100 Desirable 100-129 Near to/above Desirable 130-159 Borderline >159 Undesirable Direct (measured) LDL and calculated LDL are not interchangeable tests. Cholesterol in VLDL [Mass/Vol] NOT REPORTED 1 - 30 mg/dL [facility] Cholesterol.total/Cynthia sterol in HDL [Mass ratio] 3.2 {ratio} <5 [facility] Triglyceride [Mass/Vol] 133 mg/dL <150 M [facility] Comment on above: Triglyceride Guidelines: <150 Desirable 150-199 Borderline 200-499 High >499 Very high Based on AHA Guidelines for fasting triglyceride, December 2011. [facility] Vitamin B12on 02-10-2021 Cobalamin (Vitamin B12) [Mass/Vol] 957 pg/mL 232 - 1245 pg/mL [employer] CBC Auto DifferentialOrdered By: Del Baldwin on 10-11-2020 Absolute Eos # 0.43 [facility] Work Phone: Absolute Immature Granulocyte <0.03 [employer] Work Phone: Absolute Lymph # 1.50 [facility] Work Phone: Absolute Meeker # 0.68 [facility] Work Phone: Basophils (Bld) [#/Vol] 0.12 10*3/uL [employer] Work Phone: Basophils/100 WBC (Bld) 2 % 0 - 2 % [facility] Work Phone: Differential Type NOT REPORTED [facility] Phone: Eosinophils/100 WBC (Bld) 6 % High 1 - 4 % [facility] Work Phone: Hematocrit (Bld) [Volume fraction] 42.0 % 36.3 - 47.1 % [facility] Work Phone: Hemoglobin.gastrointest inal spec 1 Ql (Stl) 13.5 g/dL 11.9 - 15.1 g/dL [employer] Phone: Immature granulocytes/100 WBC (Bld) 0 % 0 [facility] Phone: Interpretation and review of laboratory results Abnormal [employer] Phone: Lymphocytes/100 WBC (Bld) 21 % Low 24 - 43 % [facility] Phone: MCH (RBC) [Entitic mass] 32.1 pg 25.2 - 33.5 pg [employer] Work Phone: MCHC (RBC) [Mass/Vol] 32.1 g/dL 28.4 - 34.8 g/dL [employer] Phone: MCV (RBC) [Entitic vol] 100.0 fL 82.6 - 102.9 fL [employer] Phone: Monocytes/100 WBC (Bld) 10 % 3 - 12 % [facility] Work Phone: NRBC Automated 0.0 0.0 per 100 WBC [employer] Phone: Platelet distribution width (Bld) [Ratio] 13.0 % 11.8 - 14.4 % [employer] Phone: Platelet Estimate NOT REPORTED [employer] Phone: Platelet mean volume (Bld) [Entitic vol] 9.4 fL 8.1 - 13.5 fL [employer] Phone: Platelets (Bld) [#/Vol] 302 10*3/uL [employer] Phone: RBC (Bld) [#/Vol] 4.20 10*6/uL 3.95 - 5.1 1 m/uL [employer] Phone: RBC (Bld) [#/Vol] NOT REPORTED [employer] Phone: Segmented neutrophils/100 WBC (Bld) 61 % 36 - 65 % [employer] Phone: Segs Absolute 4.40 [employer] Work Phone: WBC (Bld) [#/Vol] 7.2 10*3/uL [employer] Phone: WBC (Bld) [#/Vol] NOT REPORTED [employer] Phone: [employer] Phone: FerritinOrdered By: Del Raya on 10-11-2020 Ferritin 96 ug/L 13 - 150 ug/L [employer] Phone: Iron and TIBCOrdered By: Fran Baldwin on 10-11-2020 Iron [Mass/Vol] 112 ug/dL 37 - 145 ug/dL [facility] Work Phone: Iron Saturation 37 % 20 - 55 % [facility] [employer] [facility] Work Phone: TIBC 302 ug/dL 250 - 450 ug/dL [facility] Work Phone: UIBC 190 ug/dL 112 - 347 ug/dL [facility] Work Phone: No Panel InformationOrdered By: Del Baldwin on 10-11-2020 [facility] Work Phone: CBC Auto DifferentialOrdered By: Linette Desai on 09-28-2020 Absolute Eos # 0.73 High [facility] Work Phone: Absolute Immature Granulocyte 0.00 [facility] Work Phone: Absolute Lymph # 0.82 Low [facility] Work Phone: Absolute Meeker # 0.46 [facility] Work Phone: Basophils (Bld) [#/Vol] 0.09 10*3/uL [facility] Work Phone: Basophils/100 WBC (Bld) 1 % 0 - 2 % M [facility] [employer] Phone: Differential Type NOT REPORTED [facility] Phone: Eosinophils/100 WBC (Bld) 8 % High 1 - 4 % [facility] Work Phone: Hematocrit (Bld) [Volume fraction] 45.8 % 36.3 - 47.1 % [facility] Work Phone: Hemoglobin.gastrointest inal spec 1 Ql (Stl) 14.8 g/dL 11.9 - 15.1 g/dL [facility] Phone: Immature granulocytes/100 WBC (Bld) 0 % 0 [facility] Work Phone: Interpretation and review of laboratory results Abnormal [facility] Phone: Lymphocytes/100 WBC (Bld) 9 % Low 24 - 43 % [employer] Phone: MCH (RBC) [Entitic mass] 31.8 pg 25.2 - 33.5 pg [employer] Phone: MCHC (RBC) [Mass/Vol] 32.3 g/dL 28.4 - 34.8 g/dL [employer] Phone: MCV (RBC) [Entitic vol] 98.5 fL 82.6 - 102.9 fL [employer] Phone: Monocytes/100 WBC (Bld) 5 % 3 - 12 % [facility] Phone: Morphology Wicho (Bld) [Interp] Normal [employer] Phone: NRBC Automated 0.0 0.0 per 100 WBC [employer] Phone: Platelet distribution width (Bld) [Ratio] 12.6 % 11.8 - 14.4 % [employer] Phone: Platelet Estimate NOT REPORTED [employer] Phone: Platelet mean volume (Bld) [Entitic vol] 9.6 fL 8.1 - 13.5 fL [employer] Phone: Platelets (Bld) [#/Vol] 205 10*3/uL [employer] Phone: RBC (Bld) [#/Vol] 4.65 10*6/uL 3.95 - 5.1 1 m/uL [employer] Phone: RBC (Bld) [#/Vol] NOT REPORTED [employer] Phone: Segmented neutrophils/100 WBC (Bld) 77 % High 36 - 65 % [employer] Phone: Segs Absolute 7.00 [employer] Work Phone: WBC (Bld) [#/Vol] 9.1 10*3/uL [employer] Phone: WBC (Bld) [#/Vol] NOT REPORTED [employer] Phone: [employer] Phone: Comprehensive Metabolic Pane lOrdered By: Linette Desai on 09-28-2020 Albumin [Mass/Vol] 4 g/dL 3.5 - 5.2 g/dL [employer] Phone: Albumin/Globulin [Mass ratio] 1.3 {ratio} [employer] Phone: ALP (Bld) [Catalytic activity/Vol] 158 U/L High 35 - 104 U/L [employer] Phone: ALT [Catalytic activity/Vol] 53 U/L High 5 - 33 U/L [employer] Phone: Anion gap [Moles/Vol] 9 mmol/L 9 - 17 mmol/L [employer] Phone: AST [Catalytic activity/Vol] 29 U/L <32 [employer] Phone: Bilirubin [Mass/Vol] 0.28 mg/dL Low 0.3 - 1 .2 mg/dL [employer] Phone: Calcium [Mass/Vol] 9.5 mg/dL 8.6 - 10. 4 mg/dL [employer] Phone: Chloride [Moles/Vol] 102 mmol/L 98 - 10 7 mmol/L [employer] Phone: CO2 [Moles/Vol] 28 mmol/L 20 - 31 mmol/L [employer] Phone: Creatinine [Mass/Vol] 0.76 mg/dL 0.50 - 0.90 mg/dL [employer] Phone: Free PSA/Total PSA [Mass fraction] 7.1 g/dL 6.4 - 8.3 g/dL [employer] Phone: GFR >60 >60 mL/min [employer] Phone: GFR Non- >60 >60 mL/min [employer] Phone: Glucose [Mass/Vol] 121 mg/dL High 70 - 99 mg/dL [employer] Phone: Interpretation and review of laboratory results Abnormal [employer] Phone: Potassium [Moles/Vol] 4.4 mmol/L 3.7 - 5.3 mmol/L [employer] Phone: Sodium [Moles/Vol] 139 mmol/L 135 - 144 mmol/L [employer] Phone: Urea nitrogen (BldV) [Mass/Vol] 10 mg/dL 8 - 23 mg/dL [employer] Phone: Urea nitrogen/Creatinine (Bld) [Mass ratio] 13 [employer] Phone: [employer] Phone: Laboratory - Chemistry and C hemistry - challengeOrdered By: Linette Desai on 09-28-2020 GFR/1.73 sq M.predicted MDRD (S/P/Bld) [Vol rate/Area] [employer] Phone: Comment on above: Average GFR for 60-6 9 years old: 85 mL/min/1.73sq m Chronic Kidney Disease: <60 mL/min/1.73sq m Kidney failure: <15 mL/min/1.73sq m eGFR calculated using average adult body mass. Additional eGFR calculator available at: http://www.[employer]/multiple_crcl_2012.htm Stage 1: Some kidney damage normal GFR Stage 2: Mild kidney damage GFR 60-89 Stage 3: Moderate kidney damage GFR 30-59 Stage 4: Severe kidney damage GFR 15-29 Stage 5: Severe kidney damage GFR <15 ESRD - chronic treatment by dialysis or transplant Lipid PanelOrdered By: Linette Desai on 09-28-2020 Cholesterol [Mass/Vol] 154 mg/dL <200 [employer] Phone: Comment on above: Cholesterol Guidelines: <200 Desirable 200-240 Borderline >240 Undesirable Cholesterol in HDL [Mass/Vol] 48 mg/dL >40 [employer] Phone: Comment on above: HDL Guidelines: <40 Undesirable 40-59 Borderline >59 Desirable Cholesterol in LDL [Mass/Vol] 84 mg/dL 0 - 130 mg/dL [employer] Phone: Comment on above: LDL Guidelines: <100 Desirable 100-129 Near to/above Desirable 130-159 Borderline >159 Undesirable Direct (measured) LDL and calculated LDL are not interchangeable tests. Cholesterol in VLDL [Mass/Vol] NOT REPORTED 1 - 30 mg/dL [employer] Phone: Cholesterol.total/Cynthia sterol in HDL [Mass ratio] 3.2 {ratio} <5 [employer] Phone: Triglyceride [Mass/Vol] 110 mg/dL <150 M [employer] Phone: Comment on above: Triglyceride Guidelines: <150 Desirable 150-199 Borderline 200-499 High >499 Very high Based on AHA Guidelines for fasting triglyceride, December 2011. [employer] Phone: XR CHEST (2 VW)Ordered By: Noah Desai on 09-28-2020 No acute cardiopulmonary findings [employer] Phone: EXAMINATION: TWO XRAY VIEWS OF THE CHEST 09/28/2020 8:31 am COMPARISON: None available HISTORY: ORDERING SYSTEM PROVIDED HISTORY: Dyspnea, unspecified type FINDINGS: Normal cardiopericardial silhouette Mild biapical capping There are no significant pleural, parenchymal, mediastinal or osseous findings [employer] Phone: [place], M[facility] Incoming Radiant Results From [employer] - 09/28/2020 8:41 AM EDT EXAMINATION: TWO XRAY VIEWS OF THE CHEST 09/28/2020 8:31 am COMPARISON: None available HISTORY: ORDERING SYSTEM PROVIDED HISTORY: Dyspnea, unspecified type FINDINGS: Normal cardiopericardial silhouette Mild biapical capping There are no significant pleural, parenchymal, mediastinal or osseous findings IMPRESSION: No acute cardiopulmonary findings [facility] Work Phone: [facility] Work Phone: Ferritinon 08-13-2019 Ferritin [Mass/Vol] 130 ug/L 13 - 150 ug/L [place] Iron and TIBCon 08-13-2019 Iron [Mass/Vol] 87 ug/dL 37 - 145 ug/dL [place] Iron Saturation 30 % 20 - 55 % [place] TIBC 292 ug/dL 250 - 450 ug/dL [place] UIBC 205 ug/dL 112 - 347 ug/dL [place] Vitamin B12 & Folateon 08-12 Cobalamin (Vitamin B12) [Mass/Vol] 928 pg/mL 232 - 1245 pg/mL [place] Folate 11.2 ng/mL >4.8 [place] CBC Auto Differentialon 10-0 Basophils (Bld) [#/Vol] 0.07 10*3/uL [place] Basophils/100 WBC (Bld) 1 % 0 - 2 % [place] Differential Type NOT REPORTED [place] Eosinophils (Bld) [#/Vol] 0.56 10*3/uL [place] Eosinophils/100 WBC (Bld) 12 % High 1 - 4 % [place] Erythrocyte distribution width (RBC) [Ratio] 12.8 % 11.8 - 14.4 % [place] Hematocrit (Bld) [Volume fraction] 42.6 % 36.3 - 47.1 % [place] Hemoglobin (Bld) [Mass/Vol] 13.5 g/dL 11.9 - 15.1 g/dL [place] Immature granulocytes (Bld) [#/Vol] 0 % 0 [place] Immature granulocytes (Bld) [#/Vol] 10*3/uL [place] Interpretation and review of laboratory results Abnormal [place] Lymphocytes (Bld) [#/Vol] 1.10 10*3/uL [place] Lymphocytes/100 WBC (Bld) 23 % Low 24 - 43 % [place] MCH (RBC) [Entitic mass] 30.8 pg 25.2 - 33.5 pg [place] MCHC (RBC) [Mass/Vol] 31.7 g/dL 28.4 - 34.8 g/dL [place] MCV (RBC) [Entitic vol] 97.3 fL 82.6 - 102.9 fL [place] Monocytes (Bld) [#/Vol] 0.48 10*3/uL [place] Monocytes/100 WBC (Bld) 10 % 3 - 12 % M [place] Platelet mean volume (Bld) [Entitic vol] 9.4 fL 8.1 - 13.5 fL [place] Platelets (Bld) [#/Vol] 233 10*3/uL [place] Platelets (Bld) [#/Vol] NOT REPORTED [place] RBC (Bld) [#/Vol] 4.38 10*6/uL 3.95 - 5.1 1 m/uL [place] RBC morphology finding Nom (Bld) NOT REPORTED [place] Segmented neutrophils/100 WBC (Bld) 54 % 36 - 65 % [place] Segs Absolute 2.68 [place] WBC (Bld) [#/Vol] 4.9 10*3/uL [place] WBC (Bld) [#/Vol] 0.0 10*3/uL 0.0 per 10 0 WBC [place] WBC Morphology NOT REPORTED [place] Comprehensive Metabolic Pane mauricio 12-26-2018 Albumin [Mass/Vol] 4.2 g/dL 3.5 - 5.2 g/dL [place] Albumin/Globulin [Mass ratio] 1.4 {ratio} [place] ALP [Catalytic activity/Vol] 112 U/L High 35 - 104 U/L [place] ALT [Catalytic activity/Vol] 39 U/L High 5 - 33 U/L [place] Anion gap [Moles/Vol] 13 mmol/L 9 - 17 mmol/L [place] AST [Catalytic activity/Vol] 25 U/L <32 [place] Bilirubin Ql (U) 0.26 mg/dL Low 0.3 - 1.2 mg/dL [place] Bun/Cre Ratio 19 [place] Calcium [Mass/Vol] 9.9 mg/dL 8.6 - 10. 4 mg/dL [place] Chloride [Moles/Vol] 103 mmol/L 98 - 10 7 mmol/L [place] CO2 [Moles/Vol] 26 mmol/L 20 - 31 mmol/L [place] Creatinine [Mass/Vol] 0.69 mg/dL 0.5 - 0.9 mg/dL [place] GFR >60 >60 mL/min [place] GFR Non- >60 >60 mL/min [place] Glucose [Mass/Vol] 111 mg/dL High 70 - 99 mg/dL [place] Interpretation and review of laboratory results Abnormal [place] Potassium [Moles/Vol] 4.8 mmol/L 3.7 - 5.3 mmol/L [place] Protein [Mass/Vol] 7.1 g/dL 6.4 - 8.3 g/dL [place] Sodium [Moles/Vol] 142 mmol/L 135 - 144 mmol/L [place] Urea nitrogen [Mass/Vol] 13 mg/dL 8 - 23 mg/dL [place] Hemoglobin A1Con 12-26-2018 Glucose [Mass/Vol] 123 mg/dL [place] Comment on above: The ADA and AACC rec ommend providing the estimated average glucose result to permit better patient understanding of their HBA1c result. HbA1c (Bld) [Mass fraction] 5.9 % 4.8 - 5.9 % [place] Lipid Panelon 12-26-2018 Cholesterol [Mass/Vol] 159 mg/dL <200 [place] Comment on above: Cholesterol Guidelines: <200 Desirable 200-240 Borderline >240 Undesirable Cholesterol in HDL [Mass/Vol] 51 mg/dL >40 [place] Comment on above: HDL Guidelines: <40 Undesirable 40-59 Borderline >59 Desirable Cholesterol in LDL [Mass/Vol] 87 mg/dL 0 - 130 mg/dL [place] Comment on above: LDL Guidelines: <100 Desirable 100-129 Near to/above Desirable 130-159 Borderline >159 Undesirable Direct (measured) LDL and calculated LDL are not interchangeable tests. Cholesterol in VLDL [Mass/Vol] NOT REPORTED 1 - 30 mg/dL [place] Cholesterol.total/Cynthia sterol in HDL [Mass ratio] 3.1 {ratio} <5 [place] Triglyceride [Mass/Vol] 105 mg/dL <150 [place] Comment on above: Triglyceride Guidelines: <150 Desirable 150-199 Borderline 200-499 High >499 Very high Based on AHA Guidelines for fasting triglyceride, December 2011. Metabolic Panelon 12-26-2018 GFR/1.73 sq M predicted among non-blacks MDRD (S/P/Bld) [Vol rate/Area] [place] Comment on above: Stage 1: Some kidney damage normal GFR Stage 2: Mild kidney damage GFR 60-89 Stage 3: Moderate kidney damage GFR 30-59 Stage 4: Severe kidney damage GFR 15-29 Stage 5: Severe kidney damage GFR <15 ESRD - chronic treatment by dialysis or transplant Average GFR for 60-6 9 years old: 85 mL/min/1.73sq m Chronic Kidney Disease: <60 mL/min/1.73sq m Kidney failure: <15 mL/min/1.73sq m eGFR calculated using average adult body mass. Additional eGFR calculator available at: http://www.Actito.Picklive/multiple_crcl_2011.htm CBC Auto Differentialon 10-26 Basophils (Bld) [#/Vol] 0.07 10*3/uL [place] Basophils/100 WBC (Bld) 1 % 0 - 2 % [place] Differential Type NOT REPORTED [place] Eosinophils (Bld) [#/Vol] 0.45 10*3/uL [place] Eosinophils/100 WBC (Bld) 9 % High 1 - 4 % [place] Erythrocyte distribution width (RBC) [Ratio] 19.5 % High 11.8 - 14.4 % [place] Hematocrit (Bld) [Volume fraction] 44.6 % 36.3 - 47.1 % [place] Hemoglobin (Bld) [Mass/Vol] 13.7 g/dL 11.9 - 15.1 g/dL [place] Immature granulocytes (Bld) [#/Vol] 0 % 0 [place] Immature granulocytes (Bld) [#/Vol] 10*3/uL [place] Interpretation and review of laboratory results Abnormal [place] Lymphocytes (Bld) [#/Vol] 1.14 10*3/uL [place] Lymphocytes/100 WBC (Bld) 22 % Low 24 - 43 % [place] MCH (RBC) [Entitic mass] 29.5 pg 25.2 - 33.5 pg [place] MCHC (RBC) [Mass/Vol] 30.7 g/dL 28.4 - 34.8 g/dL [place] MCV (RBC) [Entitic vol] 95.9 fL 82.6 - 102.9 fL [place] Monocytes (Bld) [#/Vol] 0.46 10*3/uL [place] Monocytes/100 WBC (Bld) 9 % 3 - 12 % [place] Platelet mean volume (Bld) [Entitic vol] 9.1 fL 8.1 - 13.5 fL [place] Platelets (Bld) [#/Vol] NOT REPORTED [place] Platelets (Bld) [#/Vol] 235 10*3/uL [place] RBC (Bld) [#/Vol] 4.65 10*6/uL 3.95 - 5.1 1 m/uL [place] RBC morphology finding Nom (Bld) NOT REPORTED [place] Segmented neutrophils/100 WBC (Bld) 59 % 36 - 65 % [place] Segs Absolute 3.18 [place] WBC (Bld) [#/Vol] 0.0 10*3/uL 0.0 per 10 0 WBC [place] WBC (Bld) [#/Vol] 5.3 10*3/uL [place] WBC Morphology NOT REPORTED [place] Ferritinon 11-22-2018 Ferritin [Mass/Vol] 224 ug/L High 13 - 150 ug/L [place] Interpretation and review of laboratory results Abnormal [place] Iron and TIBCon 11-22-2018 Iron [Mass/Vol] 122 ug/dL 37 - 145 ug/dL [place] Iron Saturation 36 % 20 - 55 % [place] TIBC 337 ug/dL 250 - 450 ug/dL [place] UIBC 215 ug/dL 112 - 347 ug/dL [place] Vitamin B12 & Folateon 11-22 Cobalamin (Vitamin B12) [Mass/Vol] 782 pg/mL 232 - 1245 pg/mL [place] Folate 10.5 ng/mL >4.8 [place] Vital Signs Date Time Vital Sign Value Performing Clinician Renato gordon 09-05-2023 10:040 Body height 157.48 cm [facility] 09-05-2023 10:24040 Body mass index (BMI) [Ratio] 22.3 kg/m2 09-05-2023 10:040 Body weight 55.33 kg [facility] 09-05-2023 10:24040 Diastolic blood pressure 77 mm[Hg] 09-05-2023 10:240400 Heart rate 112 /min [facility] 09-05-2023 10:240400 Systolic blood pressure 118 mm[Hg] 08-21-2023 17:26-0400 Heart rate 92 /min Russ Swade DO Work Phone: [facility] [employer] 08-21-2023 17:26-0400 Respiratory rate 18 /min Russ Swade DO Work Phone: [facility] [employer] 08-21-2023 17:26-0400 SaO2% (BldA) [Mass fraction] 94 % Russ Swade DO Work Phone: [facility] [employer] 08-21-2023 17:11-0400 Diastolic blood pressure 70 mm[Hg] Russ Swade DO Work Phone: [facility] [employer] 08-21-2023 17:11-0400 Systolic blood pressure 112 mm[Hg] Russ Swade DO Work Phone: [facility] [employer] 08-21-2023 15:34-0400 Body height 157.5 cm Russ Swade DO Work Phone: [facility] [employer] 08-21-2023 15:34-0400 Body mass index (BMI) [Ratio] 22.86 kg/m2 Russ Swade DO Work Phone: [facility] [employer] 08-21-2023 15:34-0400 Body temperature 98.6 [degF] Russ Swade DO Work Phone: [facility] [employer] 08-21-2023 15:34-0400 Body weight 56.7 kg Russ Swade DO Work Phone: [facility] [employer] Encounters Encounter Date Encounter Type Care Provider Facility Start: 10-09-2023 End: 10-11-2023 ambulatory JOSE ANGEL TORRES [facility] Start: 10-09-2023 End: 10-11-2023 Subsequent hospital visit by physician Charley [facility] Comment on above: Iron deficiency anem ia secondary to inadequate dietary iron intake Fracture Start: 10-02-2023 End: 10-04-2023 Subsequent hospital visit by physician Charley Nuclear Room [facility] Nuclear Medicine Comment on above: Arrived Start: 10-02-2023 End: 10-04-2023 [facility] Start: 10-01-2023 End: 10-03-2023 ambulatory RICK [facility] Start: 10-01-2023 End: 10-03-2023 Subsequent hospital visit by physician Charley Stress Lab 1 [facility] Non-Invasive Cardiology Comment on above: Lightheadedness; Dizziness; Palpitations; SOB (shortness of breath); Abnormal EKG; Former smoker; Family history of premature CAD Start: 09-25-2023 End: 09-27-2023 ambulatory RICK [facility] Start: 09-25-2023 End: 09-27-2023 Subsequent hospital visit by physician Charley Toll [employer] [facility] Non-Invasive Cardiology Comment on above: Lightheadedness; Dizziness; Palpitations; SOB (shortness of breath); Abnormal EKG; Former smoker; Family history of premature CAD Start: 09-19-2023 End: 09-21-2023 ambulatory RICK Whipple [facility] Start: 09-17-2023 End: 09-19-2023 Subsequent hospital visit by physician Charley Xr Dr Room 2 [facility] Radiology Comment on above: Fractures Start: 09-17-2023 End: 09-19-2023 ambulatory [facility] Start: 09-05-2023 End: 09-05-2023 ambulatory [facility] Work Phone: Start: 09-05-2023 End: 09-05-2023 Patient encounter procedure [facility] Physician [facility] Work Phone: Start: 08-21-2023 End: 08-21-2023 Emergency department patient visit Russ Bergeron DO Work Phone: [facility] ED Comment on above: Fall, initial encoun ter (Primary Dx); Closed fracture of left ankle, initial encounter; Dehydration; Lightheadedness; Closed fracture of metatarsal bone of left foot, physeal involvement unspecified, unspecified metatarsal, initial encounter Start: 07-13-2023 End: 07-13-2023 ambulatory LINETTE DESAI [facility] Start: 02-27-2023 End: 02-27-2023 ambulatory LINETTE DESAI [facility] Start: 02-25-2023 ambulatory RUSSELL HOBSON [facility] Start: 10-06-2022 End: 10-06-2022 Subsequent hospital visit by physician Linette Raymond Phone: [facility] Laboratory Comment on above: Iron deficiency anem ia secondary to inadequate dietary iron intake; Microcytic anemia Start: 05-10-2022 End: 05-12-2022 Subsequent hospital visit by physician Charley Director Service Rm [facility] EKG Comment on above: Tachycardia, unspeci fied Abnormal results of liver function studies Start: 05-02-2022 End: 05-02-2022 Subsequent hospital visit by physician Linette Desai DO Work Phone: [facility] Start: 04-28-2022 End: 04-28-2022 Subsequent [facility] Start: 12-01-2021 End: 12-01-2021 Subsequent hospital visit by physician Linette Raymond Phone: [facility] Laboratory Start: 04-13-2021 End: 04-14-2021 ambulatory [facility] Facility:H1 Start: 02-10-2021 End: 02-10-2021 Subsequent hospital visit by physician Linette Raymond Phone: [facility] Start: 10-11-2020 End: 10-11-2020 Subsequent hospital visit by physician Linette Raymond Phone: [facility] Laboratory Comment on above: Iron deficiency anem ia secondary to inadequate dietary iron intake; Other specified intestinal malabsorption Start: 09-28-2020 End: 09-30-2020 Subsequent hospital visit by physician Chalrey Parker Dr Room 4 [facility] Laboratory Comment on above: Dyspnea, unspecified type Start: 06-16-2020 End: 06-16-2020 Patient encounter procedure Amena Sanabria Work Phone: [facility] Work Phone: Start: 08-13-2019 End: 08-13-2019 Subsequent hospital visit by physician Linette ROSE Laboratory Comment on above: Microcytic anemia Start: 12-26-2018 End: 12-26-2018 Subsequent hospital visit by physician Linette [facility] Start: 11-22-2018 End: 11-22-2018 Subsequent hospital visit by physician Linette [facility] Laboratory Comment on above: Microcytic anemia Procedures Date Procedure Procedure Detail Performing Clinician Start: 10-09-2023 End: 10-09-2023 Radex foot complete minimum 3 views Jose Angel Grafolo DPM Work Phone: Start: 10-09-2023 Assay of ferritin Del Baldwin MD Work Phone: Start: 10-02-2023 Myocardial spect mul tiple studies Monique Paz MD Work Phone: Start: 09-17-2023 Radex foot complete minimum 3 views Jose Angel Reilly Consolo DPM Work Phone: Start: 08-21-2023 Radiologic exam ches t single view Russ Tree Bergeron DO Work Phone: Start: 08-21-2023 End: 08-21-2023 Radex ankle complete minimum 3 views Jorge Sanford MD Start: 08-21-2023 Comprehensive metabo lic panel Russmoreno Bergeron DO Work Phone: Start: 10-06-2022 Assay of ferritin Del Baldwin MD Work Phone: Start: 05-10-2022 Ecg routine ecg w/le ast 12 lds w/i&r Linette Chelsea Joe DO Work Phone: Start: 05-10-2022 Us abdominal real ti me w/image limited Linette Desai DO Work Phone: Start: 05-02-2022 Iaadiadoo influenza Andra tompkins P Samsa DO Work Phone: Start: 04-28-2022 Comprehensive metabo lic panel Linette Desai DO Work Phone: Start: 04-28-2022 Lipid panel Linette F Guillermo sse DO Work Phone: Start: 12-01-2021 Comprehensive metabo lic panel Linette Desai DO Work Phone: Start: 12-01-2021 Lipid panel Linette Li sse DO Work Phone: Start: 02-10-2021 Comprehensive metabo lic panel Linette Desai DO Work Phone: Start: 02-10-2021 Lipid panel Linette Li sse DO Work Phone: Start: 10-11-2020 Assay of ferritin Del Baldwin MD Work Phone: Start: 09-28-2020 Radiologic exam ches t 2 views Linette Desai DO Work Phone: Start: 09-28-2020 Comprehensive metabo lic panel Linette Desai DO Work Phone: Start: 09-28-2020 Lipid panel Linette munguia DO Work Phone: Start: 06-16-2020 Imm. administration COVID19 [facility] Work Phone: Start: 06-16-2020 SARS-CoV-2 vaccine, 0.5ml [facility] Work Phone: Start: 08-13-2019 Assay of ferritin Del Baldwin Work Phone: Start: 08-13-2019 Iron binding capacity A dnatree Baldwin Work Phone: Start: 08-13-2019 VITAMIN B12 & FOLATE Ad oskar Baldwin Work Phone: Start: 12-26-2018 Blood count complete auto&auto difrntl wbc Linette Desai Work Phone: Start: 12-26-2018 Comprehensive metabo lic panel Linette Desai Work Phone: Start: 12-26-2018 Lipid panel Linette munguia Work Phone: Start: 12-26-2018 Hemoglobin glycosylated a1c Krystian Massey Work Phone: Start: 11-22-2018 Assay of ferritin Del RosenthalAnaya Work Phone: Start: 11-22-2018 Blood count complete auto&auto difrntl wbc Del RosenthalAnaya Work Phone: Start: 11-22-2018 Iron binding capacity A dnatree RosenthalAnaya Work Phone: Start: 11-22-2018 VITAMIN B12 & FOLATE Catracho RosenthalAnaya Work Phone: Start: 11-01-2010 Colonoscopy Linette figueroa DO Work Phone: Plan of Treatment Date Care Activity Detail Author Start: 07-12-2028 Lipid panel Lipids [facility] Start: 01-11-2024 End: 01-11-2024 Patient encounter procedure 01/11/2024 10:20 AM EDT Office Visit [facility] [address] [phone] Monique Paz MD [address] [place] [phone] 3 month [facility] Comment on above: 3 month Start: 10-25-2023 Influenza vaccination Flu vaccine (#1) [facility] Start: 10-17-2023 End: 10-17-2023 Patient encounter procedure 10/17/2023 11:30 AM EDT Office Visit [facility] Part [address] [address] Del Baldwin MD [address] [place] [address] anemia [facility] Comment on above: anemia Start: 10-03-2023 End: 10-03-2023 Patient encounter procedure 10/03/2023 1:40 PM EDT Office Visit [facility] [address] [phone] Monique Paz MD [address] [place] [address] 1 week [facility] Comment on above: 1 week Start: 10-02-2023 End: 10-02-2023 Patient encounter procedure [facility] Nuclear Medicine Comment on above: STAT ADD ON Start: 10-01-2023 End: 10-01-2023 Patient encounter procedure [facility] Non-Invasive Cardiology Comment on above: STAT ADD ON Start: 09-25-2023 End: 09-25-2023 Patient encounter procedure 09/25/2023 9:40 AM EDT Office Visit [facility] [address] [phone] Monique Paz MD [address] [place] [address] [place] [address] 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 [facility] Comment on above: 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 Start: 09-22-2023 Lipid panel Lipids [facility] [place] Start: 07-27-2023 Lipid screen Lipid screen [facility] Start: 04-28-2023 Lipid panel Lipids [facility] [place] Start: 02-19-2023 Annual Wellness Visit (Medicare) Annual Wellness Visit (Medicare) [facility] Start: 12-01-2022 Lipid panel [facility]ids [facility] [place] Start: 11-24-2022 COVID-19 Vaccine ( season) COVID-19 Vaccine () [facility] Start: 10-24-2022 Influenza vaccination Flu vaccine (#1) [facility] Start: 10-12-2022 End: 10-12-2022 Patient encounter procedure 10/12/2022 Office Visit Gastroenterology Shelia Lomeli MD [address] [place] [id number] [facility] Start: 10-11-2022 End: 10-11-2022 Patient encounter procedure 10/11/2022 Office Visit Oncology Del Baldwin MD [address] [place], [place] [id number] [facility] Start: 07-05-2022 Lipid panel Lipids [facility] Start: 03-16-2022 Hemoglobin A1c measurement A1C test (Diabetic or Prediabetic) [facility] Start: 12-16-2021 COVID-19 Vaccine (3 - Booster for Ha series) COVID-19 Vaccine (3 - Booster for Ha series) [facility] Start: 11-24-2021 Influenza vaccination Flu vaccine (#1) [facility] Start: 10-24-2021 Influenza vaccination Flu vaccine (#1) [facility] Start: 10-12-2021 End: 10-12-2021 Patient encounter procedure 10/12/2021 Office Visit Oncology Del Baldwin MD [address] [place], [place] [phone] [facility] Start: 10-10-2021 COVID-19 Vaccine (3 - Booster for Ha series) COVID-19 Vaccine (3 - Booster for Ha series) [facility] Start: 09-28-2021 Lipid panel Lipid screen [facility] Start: 02-14-2021 End: 02-14-2021 Patient encounter procedure 02/14/2021 Office Visit Pulmonology Manuel Galo MD [address] [address] [facility] Start: 01-24-2021 Annual Wellness Visit (AWV) Annual Wellness Visit (AWV) [facility] Start: 11-24-2020 Influenza vaccination Flu vaccine (#1) [facility] Start: 11-01-2020 Colon cancer screen colonoscopy Colon cancer screen colon[place] Start: 11-01-2020 Screening for malignant neoplasm of colon [facility] Start: 10-21-2020 Pneumococcal 65+ years Vaccine (1 of 1 - PPSV23) Pneumococcal 65+ years Vaccine (1 of 1 - PPSV23) [facility] Start: 10-13-2020 End: 10-13-2020 Patient encounter procedure 10/13/2020 Office Visit Oncology Del Baldwin MD [address] [place] [address] [facility] Start: 08-11-2020 COVID-19 Vaccine (2 - Booster for Ha series) COVID-19 Vaccine (2 - Booster for Ha series) [facility] Start: 12-27-2019 A1C test (Diabetic or Prediabetic) A1C test (Diabetic or Prediabetic) [place] Start: 12-27-2019 HbA1c (Bld) [Mass fraction] A1C test (Diabetic or Prediabetic) [place] Start: 12-27-2019 Hemoglobin A1c measurement A1C test (Diabetic or Prediabetic) [facility] Start: 12-27-2019 Lipid panel [place]id [place] Start: 12-27-2019 Lipid screen [place] Start: 11-25-2019 Influenza vaccination Flu vaccine (Season Ended) [place] Start: 08-20-2019 End: 08-20-2019 Office Visit 08/20/2019 Office Visit Oncology Del Baldwin MD [address] [place] [address] [facility] Start: 06-06-2019 End: 06-06-2019 Office Visit 06/06/2019 Office Visit Oncology Clint Grossman MD [address] [place], [place] [address] [facility] Start: 11-29-2018 End: 11-29-2018 Office Visit 11/29/2018 Office Visit Oncology Del Baldwin MD [address] [place] [address] [phone] [facility] Start: 11-24-2018 Influenza vaccination Flu vaccine (#1) [place] Start: 10-21-2018 Annual Wellness Visit (AWV) Annual Wellness Visit (AWV) [place] Start: 09-10-2018 Annual Wellness Visit (AWV) Annual Wellness Visit (AWV) [place] Start: 10-21-2010 Screening for osteoporosis DEXA (modify frequency per FRAX score) [facility] Start: 10-21-2005 Breast cancer screen Breast cancer screen [place] Start: 10-21-2005 Screening for malignant neoplasm of breast Breast cancer screen [facility] Start: 10-21-2005 Shingles Vaccine (1 of 2) Shingles Vaccine (1 of 2) [facility] Start: 10-21-2000 Screening for malignant neoplasm of colon [facility] Start: 1995 Screening for malignant neoplasm of breast Breast cancer screen [facility] Start: 10-21-1976 Cervical cancer screen Cervical cancer [place] Start: 10-21-1976 Screening for malignant neoplasm of cervix Cervical cancer [place] Start: 10-21-1974 DTaP/Tdap/Td vaccine (1 - Tdap) DTaP/Tdap/Td vaccine (1 - Tdap) [facility] Start: 10-21-1973 Hepatitis C screening Hepatitis C screen [facility] Start: 1967 Depression Screen Depression Screen [facility] Start: 1955 Annual Wellness Visit (AWV) Annual Wellness Visit (AWV) [facility] Start: 1955 Hepatitis C screen Hepatitis C screen [place] Start: 1955 Hepatitis C screening Hepatitis C screen [facility] End: 05-02-2022 COVID-19 [facility] Work Phone: Comment on above: Once for 1 Occurrences starting 05/02/19 23 until 05/02/2022 DXA Skeletal system.axial Views for bone density End: 09-25-2023 Extended cardiac holter monitor (3 days-14 day) [employer] Work Phone: Comment on above: 1 Occurrences starting 09/25/2023 until 09/25/2023 End: 08-21-2023 Splint application Splint application Procedures Routine One Time for 1 Occurrences starting 08/21/2023 until 08/21/2023 [facility] Comment on above: One Time for 1 Occurrences starting 07/25 until 08/21/2023 Immunizations Immunization Date Immunization Notes Care Provider Ramin khoury 06-16-2020 Hermilo COVID 19 Vaccine [facility] Work Phone: Comment on above: Note: Patient tolera moies well. No signs or symptoms of adverse reactions. Patient waited a minimum of 15 minutes. Payers Date Payer Category Payer Medicare BCBS MEDICARE AN THEM MEDIBLUE ESSENTIAL/PLUS xxxxxxxxxxxx 2019-Present [address] [address] [place] [address] xxxxxxxxxxxx [id number] 2019 Unknown 1 - [employer] are Advantage [id number] 2018 Medicare SUMMACARE-MEDICA RE ADVANTAGE SUMMACARE-MEDICARE ADVANTAGE xxxxxxxxxxx 2018-Present [phone] [address] [place] [address] xxxxxxxxxxx [id number] 1959 Medicare [id number] 1959 Private Health Insurance [id number] .[id number] 1955 Unknown [id number] 2.16.840.1.844548.3.579.2 .593 1955 Unknown [id number] 2.16.840.1.720797.3.579.2 .173 1955 Unknown [id number] 2.16.840.1.510700.3.579.2 .173 1955 Unknown [id number] 2.16.840.1.821896.3.579.2 .173 1955 Unknown [id number] 2.16.840.1.242067.3.579.2 .173 1955 Unknown [id number] 2.16.840.1.305999.3.579.2 .173 1955 Unknown [id number] 2.16.840.1.745169.3.579.2 .173 1955 Unknown [id number] 2.16.840.1.448078.3.579.2 .173 1955 Unknown [id number] 2.16.840.1.719459.3.579.2 .173 1955 Unknown [id number] 2.16.840.1.202852.3.579.2 .173 1955 Unknown [id number] 2.16.840.1.100853.3.579.2 .173 1955 Unknown [id number] 2.16.840.1.106401.3.579.2 .173 1955 Unknown [id number] 2.16.840.1.245516.3.579.2 .173 1955 Unknown [id number] 2.16.840.1.678849.3.579.2 .173 1955 Unknown [id number] 2.16.840.1.687173.3.579.2 .173 1955 Unknown [id number] 2.16.840.1.969840.3.579.2 .173 1955 Unknown [id number] 2.16.840.1.318297.3.579.2 .173 1955 Unknown [id number] 2.16.840.1.820575.3.579.2 .173 1955 Unknown [id number] 2.16.840.1.246753.3.579.2 .173 Medicare Medicare [id number] Social History Date Type Detail Facility Start: 09-06-2018 End: 08-21-2023 Tobacco smoking status TXIS Former smoker [employer] Start: 09-06-2018 End: 02-25-2023 Alcohol intake No [facility] Start: 1955 Sex Assigned At Not on file [place] Start: 11-29-2018 End: 10-03-2023 Alcohol intake Current [place]-drinker of alcohol [place]finding[place] Tobacco smoking status Unknown i f ever smoked [facility] Work Phone: Start: 04-08-2020 End: 08-21-2023 Tobacco use and exposure Never used [employer] Start: 09-24-1975 End: 11-24-2009 History of tobacco use Current smoker [employer] Work Phone: Start: 09-24-1975 End: 11-24-2009 History of tobacco use Cigarette Smoker [employer] Start: 02-25-2023 End: 10-03-2023 History of Social function [employer] Has the [employer], [employer], or [employer] threatened to shut off services in your home in past 12Mo No [employer] (I/We) worried wheth er (my/our) food would run out before (I/we) got money to buy more. Never true [employer] In the past 12 month s, has lack of transportation kept you from medical appointments or from getting medications? No [employer] Start: 1955 Sex Assigned At Female F [facility] Clinical Notes 05-10-2022 to 10-11-2023 Seema Brush RN - 10/01/2023 11:30 AM Anabellajonathan Work - 05/10/2022 1:30 PM EST Note Date & Type Note Facility 10-11-2023 Note Left ankle: 1. Overlying casting/splint material limits evaluation of fine osseous detail. Fracture line persists without significant osseous bridging. 2. Slightly displaced distal fibular metaphyseal fracture. 3. Diffuse osteopenia. Mild degenerative changes as above. Mild plantar calcaneal spur. Left foot: 1. Overlying splint material limits evaluation of fine osseous detail. 2. Nondisplaced transverse fractures through the proximal 2nd through 4th metatarsals. Fracture lines persist without change in alignment. 3. Nondisplaced fracture of the distal fibular diaphysis. 4. Mild plantar calcaneal spur. Mild distal Achilles enthesopathy. 5. Stable sclerosis at the distal 2nd metatarsal. [facility] 10-11-2023 Note Left ankle: 1. Overlying casting/splint material limits evaluation of fine osseous detail. Fracture line persists without significant osseous bridging. 2. Slightly displaced distal fibular metaphyseal fracture. 3. Diffuse osteopenia. Mild degenerative changes as above. Mild plantar calcaneal spur. Left foot: 1. Overlying splint material limits evaluation of fine osseous detail. 2. Nondisplaced transverse fractures through the proximal 2nd through 4th metatarsals. Fracture lines persist without change in alignment. 3. Nondisplaced fracture of the distal fibular diaphysis. 4. Mild plantar calcaneal spur. Mild distal Achilles enthesopathy. 5. Stable sclerosis at the distal 2nd metatarsal. [facility] 10-01-2023 History of Present illness Narrative Instructed on objectives and procedure of lexiscan/cardiolite stress test. documented in this encounter [facility] 02-26-[address] [address] CONSULTATION PATIENT NAME: NATASHA BUNN : 1955 MED REC NO: [id number] ROOM: [facility] ACCOUNT NO: [id number] ADMIT DATE: 02/25/2023 PROVIDER: Kirk Pardo CONSULT DATE: 02/26/2023 ORTHOPEDIC CONSULTATION SUBJECTIVE: The patient is a 67-year-old female, who was home in her house, when she slipped and fell in the bathroom, striking her left shoulder on the bathtub. She presented to the emergency room for evaluation. The patient complained of pain involving her left shoulder. Apparently did have some trouble breathing initially. X-rays of the left shoulder showed no acute fractures or dislocations. CT scan of the left shoulder was also obtained. No acute fractures or dislocations were noted. She was found to have a small left-sided pleural effusion. OBJECTIVE: On evaluation, the patient is able to lift her left arm up over her head. She can get her hand up to her head, face, and the back of her head. She is complaining of discomfort with range of motion. She denies any numbness or tingling. IMPRESSION: Sprain-strain injury of left shoulder. PLAN: The plan is to have the patient work on shoulder exercises and advance as tolerated. She will be given a sling, to be seen back in the office in a week and half. Tylenol and anti-inflammatories as needed. KIRK PARDO PH/[email or web address]_I Doc#: [id number] [facility] 05-10-2022 History of Present illness Narrative Explained Holter monitor and diary. documented in this encounter [facility] Phone: Evaluation note Diagnosis Dyspnea, unspecified type documented in this encounter [employer] Phone: evaluation note* Diagnosis Iron deficiency anemia secondary to inadequate dietary iron intake Other specified intestinal malabsorption documented in this encounter [employer] Phone: evaluation note* Diagnosis Tachycardia, unspecified documented in this encounter [facility] [employer] Phone: evaluation note* Diagnosis Abnormal results of liver function studies Nonspecific abnormal results of liver function study documented in this encounter [facility] Work Phone: evaluation note* Diagnosis Iron deficiency anemia secondary to inadequate dietary iron intake Microcytic anemia Iron deficiency anemia, unspecified [facility], initial encounter- Primary Closed fracture of left ankle, initial encounter Dehydration Lightheadedness Dizziness and giddiness Closed fracture of metatarsal bone of left foot, physeal involvement unspecified, unspecified metatarsal, initial encounter documented in this encounter [facility]* Diagnosis Onset Date Resolution Status Osteoporosis acute [facility] Work Phone: Evaluation note* Diagnosis Fractures Closed fracture of unspecified bone documented in this encounter [facility]* Diagnosis Lightheadedness Dizziness and giddiness Dizziness Dizziness and giddiness Palpitations SOB (shortness of breath) Shortness of breath Abnormal EKG Nonspecific abnormal electrocardiogram (ECG) (EKG) Former smoker Personal history of tobacco use, presenting hazards to health Family history of premature CAD Family history of ischemic heart disease documented in this encounter [facility]* Diagnosis Lightheadedness Dizziness and giddiness Dizziness Dizziness and giddiness Palpitations SOB (shortness of breath) Shortness of breath Abnormal EKG Nonspecific abnormal electrocardiogram (ECG) (EKG) Former smoker Personal history of tobacco use, presenting hazards to health Family history of premature CAD Family history of ischemic heart disease documented in this encounter [facility]* Diagnosis Iron deficiency anemia secondary to inadequate dietary iron intake documented in this encounter [facility]* Diagnosis Fracture Closed fracture of unspecified bone [facility]* Attachments The following attachments cannot be sent through Care Everywhere. * Lightheadedness or Faintness (Gabonese) * Fall Prevention (Gabonese) * Dehydration (Gabonese) * Ankle Fracture (Gabonese) * Splint or Immobilizer Use (Gabonese) * Metatarsal Fracture (Gabonese) [facility] Diagnosis Microcytic anemia Iron deficiency anemia, unspecified Diagnosis Microcytic anemia Iron deficiency anemia, unspecified Findings Encounter Date Encounter for Immunization 1st COVID Vaccine kailash San[employer]ria [employer] 06/16/2020 Advance Directives Documents on File Type Date Recorded Patient Biochemistry Specialist Expl anation Advance Directives and Living Will Power of Air Technician Documents on File Type Date Recorded Patient Biochemistry Specialist Expl anation ACP-Advance Directive ACP-Power of Air Technician Advance Directive Response Recorded Date/ Time Advance Directives No August 29 2:14pm Documents on File Type Date Recorded Patient Biochemistry Specialist Expl anation ACP-Advance Directive 10/11/2023 11:32 AM Reason for Referral Specialty Diagnoses / Procedures Referred By Contac t Referred To Contact Cardiology Diagnoses Tachycardia, unspecified Procedures Holter Monitor 24 Hour Linette Desai, DO [address] [place] [phone] Referral ID Status Reason Start Date Expiration Date Visits Re quested Visits Authorized [id number] Closed 05/09/2022 05/09/2023 1 1 Specialty Diagnoses / Procedures Referred By Contac t Referred To Contact Radiology Diagnoses Abnormal results of liver function studies Procedures US LIVER Linette Desai, DO [address] [place] [phone] Referral ID Status Reason Start Date Expiration Date Visits Re quested Visits Authorized [id number] Closed 05/05/2022 05/05/2023 1 1 Specialty Diagnoses / Procedures Referred By Contac t Referred To Contact Diagnoses Lightheadedness Dizziness Palpitations SOB (shortness of breath) Abnormal EKG Former smoker Family history of premature CAD Procedures Extended cardiac holter monitor (3 days-14 day) WV EXTERNAL ECG REC>48HR<7D REVIEW & INTERPRETATION WV EXTERNAL ECG REC>48HR<7D RECORDING WV EXTERNAL ECG REC>7D<15D RECORDING WV EXTERNAL ECG REC>7D<15D REVIEW & INTERPRETATION Monique Paz MD [address] [place] [phone] Referral ID Status Reason Start Date Expiration Date V isits Requested Visits Authorized [id number] Not Required - RTA 09/25/2023 09/24/2024 1 1 Specialty Diagnoses / Procedures Referred By Contac t Referred To Contact Diagnoses Lightheadedness Dizziness Palpitations SOB (shortness of breath) Abnormal EKG Former smoker Family history of premature CAD Procedures Nuclear stress test with myocardial perfusion Monique Paz MD [address] [place] [address] [place] [address] Referral ID Status Reason Start Date Expiration Date Visits Re quested Visits Authorized [id number] Open 09/25/2023 09/24/2024 3 3 Instructions Instructions not supported for this document type No Instructions Recorded History of Present Illness History of Present Illness not supported for this document type No History of Present Illness Recorded Family History Relationship Condition Age at Onset Recorded Date/T vonda Not Specified Malignant neoplasm Unknown father Diabetes mellitus Unknown Heart disease Unknown Hypertension Unknown Myocardial infarction Unknown sister Diabetes mellitus Unknown brother Heart disease Unknown Review of System Review of Systems not supported for this document type No Review of Systems Recorded Physical Exam Physical Exam not supported for this document type No Physical Exam Recorded Summary Purpose Chief Complaint and Reason for Visit Chief Complaint est care Reason for Visit Osteoporosis Additional Source Comments Medical History (unrecognize d section and content) Includes: Medical History in patient's chartNo Medical History Recorded Evaluations & Outcomes (unre cognized section and content) Includes: Evaluations & Outcomes for active GoalsNo Outcomes Recorded Care Teams (unrecognized sec tion and content) [employer] Cast Patternmaker Relationship Specialty Start Date End Date Linette Desai, [address] [phone] PCP - General Family Medicine 07/26/18 [employer]maker Relationship Specialty Start Date End Date Linette Desai, [address] [phone] PCP - General Family Medicine 07/26/18 [employer] Cast Patternmaker Relationship Specialty Start Date End Date Linette Desai, [address] [phone] PCP - General Family Medicine 07/26/18 Die Cast Patternmaker Relationship Specialty Start Date End Date Linette Desai, [address] [phone] PCP - General Family Medicine 07/26/18 Die Cast Patternmaker Relationship Specialty Start Date End Date Linette Desai, DO [address] [place] [address] PCP - General Family Medicine 07/26/18 Die Cast Patternmaker Relationship Specialty Start Date End Date JoeLinette buck, DO [address] [place] [address], [place] [address] PCP - General Family Medicine 07/26/18 [employer] Patternmaker Relationship Specialty Start Date End Date Joe, Linette ChelseaDO [address] [place] [address], [place] [phone] PCP - General Family Medicine 07/26/18 Team Status: Active Member Role Status Dates Rick Amin MD Primary Care Provider Active Team Status: Inactive Member Role Status Dates Rick Amin MD Primary Care Provide r, Attending Provider Active Start: September 05, 2023 End: September 05, 2023 Die Cast Patternmaker Relationship Specialty Start Date End Date Rick Amin MD [address] [facility] [place] [address] PCP - General Family Medicine 09/17/23 Die Cast Patternmaker Relationship Specialty Start Date End Date Rick Amin MD [address] [facility] [place] [address] PCP - General Family Medicine 09/17/23 Die Cast Patternmaker Relationship Specialty Start Date End Date Rick Amin MD [address] [facility] [place] [address] PCP - General Family Medicine 09/17/23 Die Cast Patternmaker Relationship Specialty Start Date End Date Rick Amin MD [address] [facility] [place] [address] PCP - General Family Medicine 09/17/23 Die Cast Patternmaker Relationship Specialty Start Date End Date Rick Amin MD [address] [place] [address] PCP - General Family Medicine 09/17/23 Die Cast Patternmaker Relationship Specialty Start Date End Date Rick Amin MD [address] [place] [address] PCP - General Family Medicine 09/17/23 INFORMATION SOURCE (unrecogn ized section and content) DATE CREATED AUTHOR 04/16/2021 [facility] DATE CREATED AUTHOR AUTHOR'S ORGANIZ ATION 10/13/2023 [facility] Reason for Visit (unrecogniz ed section and content) Specialty Diagnoses / Procedures Referred By Contac t Referred To Contact Cardiology Diagnoses Tachycardia, unspecified Procedures Holter Monitor 24 Hour Linette Desai, [address] [phone] Referral ID Status Reason Start Date Expiration Date Visits Re quested Visits Authorized [id number] Closed 05/09/2022 05/09/2023 1 1 Specialty Diagnoses / Procedures Referred By Contac t Referred To Contact Radiology Diagnoses Abnormal results of liver function studies Procedures LIVER Linette Desai, [address] [phone] Referral ID Status Reason Start Date Expiration Date Visits Re quested Visits Authorized [id number] Closed 05/05/2022 05/05/2023 1 1 Reason Comments Ankle Pain Left- onset after fa lling to carpeted [place]- pt denies hitting head or LOC Dizziness Ongoing for 2 months - has been tachycardic and is scheduled to see Dr Paz in September. States dizziness caused the fall. Specialty Diagnoses / Procedures Referred By Contac t Referred To Contact Diagnoses Lightheadedness Dizziness Palpitations SOB (shortness of breath) Abnormal EKG Former smoker Family history of premature CAD Procedures Extended cardiac holter monitor (3 days-14 day) WV EXTERNAL ECG REC>48HR<7D REVIEW & INTERPRETATION WV EXTERNAL ECG REC>48HR<7D RECORDING WV EXTERNAL ECG REC>7D<15D RECORDING WV EXTERNAL ECG REC>7D<15D REVIEW & INTERPRETATION Monique Paz MD [facility] [place] [address] Referral ID Status Reason Start Date Expiration Date V isits Requested Visits Authorized [id number] Not Required - RTA 09/25/2023 09/24/2024 1 1 Specialty Diagnoses / Procedures Referred By Contac t Referred To Contact Diagnoses Lightheadedness Dizziness Palpitations SOB (shortness of breath) Abnormal EKG Former smoker Family history of premature CAD Procedures Nuclear stress test with myocardial perfusion Monique Paz MD [address] [place] [address] Referral ID Status Reason Start Date Expiration Date Visits Re quested Visits Authorized [id number] Open 09/25/2023 09/24/2024 3 3 Scheduled Active and Recently Administ ered Medications (unrecognized section and content) Medication Order 08/19/2023 08/20/2023 08/21/2023 sodium chloride 0.9 % bolus 1,000 mL (COMPLETED) 1,000 mL (17.6 mL/kg), IntraVENous, at 1,935.5 mL/hr, Administer over 31 Minutes, ONCE, On Sun08/21/23 at 1600, For 1 dose, For adult patients weighing > 55 kg (120 lbs.) and less than <50 years of age initiate 0.9NS at 500 mL/ hr. All bolus orders are to be given over 10 to 15 minutes 1610 (New Bag - Prov ider: Basilia Kenney RN)1738 (Stopped - Provider: Basilia Kenney RN) Goals (unrecognized section and content) Goals may be documented in a n alternate section FOR RECORDS PERTAINING TO PATIENTS WHO ARE OR HAVE BEEN ENROLLED IN A CHEMICAL DEPENDENCY/SUBSTANCEABUSE PROGRAM, SOME INFORMATION MAY BE OMITTED. This clinical summary was aggregated from multiple sources. Caution should be exercised in using it in the provision of clinical care. This summary normalizes information from multiple sources, and as a consequence, information in this document may materially change the coding, format and clinical context of patient data. In addition, data may be omitted in some cases. CLINICAL DECISIONS SHOULD BE BASED ON THE PRIMARY CLINICAL RECORDS. [facility]. provides no warranty or guarantee of the accuracy or completeness of information in this document.
== END 2023-11-06 10:01 | disposition home or self-care (01) ==
LOC: EC 10:01
PROVIDERS: PCP Family Medicine; Visit Provider Podiatrist Foot & Ankle Surgery
DX: M79.672 Pain in left foot (principal); M25.572 Pain in left ankle and joints of left foot; M84.364D Stress fracture, left fibula, subsequent encounter for fracture with routine healing
CPT/HCPCS: 73610; 73630

== ENCOUNTER 2023-11-28 10:30 | Outpatient (OUT) | payer MEDICARE, SELFPAY ==
--- NOTE | 2023-11-28 | XR_ITS ---
The [address] [address] Patient Name: NATASHA BUNN MRN: [id number] date: 1955 Sex: F Assigned Patient Location: Current Patient Location: Accession/Order Number: [id number] Exam Date: 11/28/2023 10:31 Report Date: 11/29/2023 06:44 At the request of: LETTY FRAZIER Procedure: XR ankle LT min 3V PROCEDURE: XR foot LT min 3V, XR ankle LT min 3V HISTORY: LEFT FOOT PAIN COMPARISON: XR left ankle and foot 11/06/2023 FINDINGS: BONES:Stable near normal alignment of medial malleolus fracture with slight increased density at fracture line. Intact ankle mortise. Stable alignment and ongoing versus near complete healing of base of second third metatarsal fractures. Stable area of sclerosis within neck of second metatarsal. SOFT TISSUES:No visible soft tissue swelling. EFFUSION:None visible. OTHER: Negative. XR/XR ankle LT min 3V IMPRESSION: 1. Stable alignment and ongoing bone healing of medial malleolus and the second and third metatarsal fractures. Electronically authenticated by: AMANDA NAGEL Date: 11/29/2023 06:44
--- NOTE | 2023-11-28 | XR_ITS ---
The [address] [address] Patient Name: NATASHA BUNN MRN: [id number] date: 1955 Sex: F Assigned Patient Location: Current Patient Location: Accession/Order Number: [id number] Exam Date: 11/28/2023 10:31 Report Date: 11/29/2023 06:44 At the request of: LETTY FRAZIER Procedure: XR foot LT min 3V PROCEDURE: XR foot LT min 3V, XR ankle LT min 3V HISTORY: LEFT FOOT PAIN COMPARISON: XR left ankle and foot 11/06/2023 FINDINGS: BONES:Stable near normal alignment of medial malleolus fracture with slight increased density at fracture line. Intact ankle mortise. Stable alignment and ongoing versus near complete healing of base of second third metatarsal fractures. Stable area of sclerosis within neck of second metatarsal. SOFT TISSUES:No visible soft tissue swelling. EFFUSION:None visible. OTHER: Negative. XR/XR foot LT min 3V IMPRESSION: 1. Stable alignment and ongoing bone healing of medial malleolus and the second and third metatarsal fractures. Electronically authenticated by: AMANDA NAGEL Date: 11/29/2023 06:44
== END 2023-11-28 10:31 | disposition home or self-care (01) ==
LOC: EC 10:31
PROVIDERS: PCP Family Medicine; Visit Provider Podiatrist Foot & Ankle Surgery
DX: M25.572 Pain in left ankle and joints of left foot (principal); M79.672 Pain in left foot; S82.55XD Nondisplaced fracture of medial malleolus of left tibia, subsequent encounter for closed fracture with routine healing; S92.325D Nondisplaced fracture of second metatarsal bone, left foot, subsequent encounter for fracture with routine healing; S92.335D Nondisplaced fracture of third metatarsal bone, left foot, subsequent encounter for fracture with routine healing
CPT/HCPCS: 73610; 73630

== ENCOUNTER 2023-12-19 17:45 | Outpatient (OUT) | payer MEDICARE, SELFPAY ==
--- NOTE | 2023-12-19 17:52 | US_ITS ---
The [place] [id number] Patient Name: NATASHA BUNN MRN: [id number] date: 1955 Sex: F Assigned Patient Location: US Current Patient Location: US Accession/Order Number: [id number] Exam Date: 12/19/2023 18:20 Report Date: 12/20/2023 08:20 At the request of: RICK AMIN Procedure: US arterial duplex UE LT EXAM: US arterial duplex UE LT. HISTORY: Swelling of left upper extremity, M79.89. COMPARISON: None. TECHNIQUE: Daniels-scale, color Doppler, and spectral Doppler waveform analysis was used to evaluate the left upper extremity arteries. FINDINGS: Waveforms were multiphasic. Color-flow was seen throughout. No velocity elevations were seen to suggest a significant stenosis. US/US arterial duplex UE LT IMPRESSION: No left upper extremity arterial occlusive disease by duplex criteria. Electronically authenticated by: Noah KOEHLER Date: 12/20/2023 08:20
--- OUTSIDE RECORDS SUMMARY | 2023-12-19 17:56 | XMS_ITS | CCD ---
Author Organization [facility] Care Team Providers Care Substation Technician Name Role Phone Linette Diaz Primary Care Provider Unavailable Unavailable Unavailable Linette Diaz DO Primary Care Provider [phone] BERLIN DERAS Attending Unavailable BERLIN DERAS Consulting Unavailable BERLIN DERAS Admitting Unavailable DR SRAVANI GAMEZ Primary Care Unavailable Linette Diaz DO Primary Care Provider [phone] Linette Diaz DO Primary Care Provider [phone] Lintete Diaz DO Primary Care Provider [phone] Rick Amin MD Primary Care Provider [phone] RICK AMIN Primary Care Unavailable TRISH-BRIDGET LOWRY Referring Unavail able AMIN, RICK Primary Care Unavailable BRIDGET HALL Referring Unavail able ELOISA, RICK Primary Care Unavailable AHMAD, ALI F O Referring Unavailable AMIN, RICK Primary Care Unavailable AHMAD, ALI F O Referring Unavailable AMIN, RICK Primary Care Unavailable AHMAD, ALI F O Referring Unavailable AMIN, RICK Primary Care Unavailable AHMAD, ALI F O Referring Unavailable AMIN, RICK Primary Care Unavailable JOSE ANGEL GONZALEZ Referring Unavailable AMIN, RICK Primary Care Unavailable JOSE ANGEL GONZALEZ Referring Unavailable JOE, LINETTE F Referring Unavailable JOE, LINETTE F Primary Care Unavailable AMIN, RICK Primary Care Unavailable BRIDGET HALL Referring Unavail able AMIN, RICK Primary Care Unavailable JOSE ANGEL GONZALEZ Referring Unavailable AMIN, RICK Primary Care Unavailable AHMAD, ALI F O Referring Unavailable AMIN, RICK Primary Care Unavailable AHMAD, ALI F O Referring Unavailable AMIN, RICK Primary Care Unavailable AMIN, RICK Referring Unavailable AMIN, RICK Primary Care Unavailable BRIDGET HALL Referring Unavail able AMIN, RICK Primary Care Unavailable DEL BALDWIN Referring Unavailable JOE, LINETTE F Referring Unavailable JOE, LINETTE F Primary Care Unavailable AMIN, RICK Primary Care Unavailable JOSE ANGEL GONZALEZ W Referring Unavailable AMIN, RICK Primary Care Unavailable CONSOLO, JOSE ANGEL W Referring Unavailable JOE, LINETTE F Primary Care Unavailable RUSSELL HOBSON Attending Unavailable RUSSELL HOBSON Admitting Unavailable RUSS MANNING Attending Unavailable JOE, LINETTE F Primary Care Unavailable AMIN, RICK Primary Care Unavailable SHARON PLEITEZ Admitting Unavailable MARTHA HILLMAN Consulting Unavailable KALPANA WHITTINGTON Attending Unavailable AMIN, RICK Primary Care Unavailable JOSE ANGEL GONZALEZ W Referring Unavailable AMIN, RICK Primary Care Unavailable BRIDGET HALL Referring Unavail able Allergies Allergy Classification Reported Allergen(s) Allergy Type Date of Onset Reaction(s) Facility denosumab (3 sources) denosumab Drug Allergy 9 Other (See Comments) [facility] Macrolides (antibiotic) (3 sources) Azithromycin Drug Allergy 9 [facility] zoledronic acid (3 sources) zoledronic acid Drug Allergy 9 Other (See Comments) [facility] (20 sources) Azithromycin Drug Allergy 9 [place], [place] (20 sources) denosumab Drug Allergy 9 Other (See Comments) [place], [place] (20 sources) zoledronic acid Drug Allergy 9 Other (See Comments) [place] (1 source) Azithromycin Drug Allergy 9 [facility] (1 source) denosumab Drug Allergy 0 [facility] (1 source) zoledronic acid Drug Allergy 1 [facility] Medications Current Medications Medication Drug Class(es) Dates Sig (Normalized) Sig (Original) Acetaminophen (2 sources) Start: 12-10-2023 acetaminophen (TYLENOL) tablet 650 mg Start: 12-09-2023 End: 12-09-2023 take 4000 mg by mouth every twenty-four hours 1,000 mg, Oral, ONCE, 1 dose, On 12/09/23 at 2215, Maximum dose of acetaminophen is 4000 mg from all sources in 24 hours. acetaminophen 325 mg / HYDROcodone bitartrate 5 mg oral tablet (20 sources) Opioid Agonist Start: 09-12-2023 End: 12-13-2023 take 1 tablet by mouth twice daily Hydrocodone-Acetaminophen Active 1 TAB PO Twice daily 60 30 December 13, 2023 Start: 09-05-2023 End: 09-05-2023 take 1 tablet by mouth twice daily Hydrocodone-Acetaminophen Discontinued 1 TAB PO Twice daily 14 September 05, 2023 September 05, 2023 1:58pm Start: 09-05-2023 End: 09-05-2023 take 1 tablet by mouth twice daily Hydrocodone-Acetaminophen Discontinued 1 TAB PO Twice daily 14 September 05, 2023 September 05, 2023 1:58pm Start: 10-10-2021 End: 11-12-2023 take 1 tablet by mouth twice daily Hydrocodone-Acetaminophen Discontinued 1 TAB PO Twice daily September 05, 2023 12:00am September 05, 2023 1:30pm Start: 10-10-2021 HYDROcodone-ac etaminophen (NORCO) 5-325 MG per tablet take 1 tablet by bandar th every six hours as needed for pain HYDROcodone-acetaminophen (NORCO) 5-325 MG per tablet Take 1 tablet by mouth every 6 hours as needed for Pain. 0 Active [id number] actuat albuter ol 0.09 mg/actuat metered dose inhaler (20 sources) beta2-Adrenergic Agonist Start: 12-10-2023 take 2 puff(s) by in halation every six hours as needed for wheezing albuterol sulfate HFA (PROVENTIL;VENTOLI N;PROAIR) 108 (90 Base) MCG/ACT inhaler Inhale 2 puffs into the lungs every 6 hours as needed for Wheezing Active take 2 puff(s) by in halation every six hours as needed for wheezing albuterol sulfate HFA (PROAIR HFA) 108 ( 90 Base) MCG/ACT inhaler Inhale 2 puffs into the lungs every 6 hours as needed for Wheezing 0 Active amitriptyline hydrochloride 50 mg oral tablet (20 sources) Tricyclic Antidepressant Start: 09-04-2018 take 1 tablet by mouth once daily amitriptyline (ELAVIL) 50 MG tablet Take 1 tablet by mouth nightly 09/04/2018 Active atorvastatin 10 mg oral tablet (14 sources) HMG-CoA Reductase Inhibitor Start: 07-08-2018 atorvastatin (LIPITOR) 10 MG tablet atropine sulfate 0.025 mg / diphenoxylate hydrochloride 2.5 mg oral tablet (3 sources) Anticholinergic, Cholinergic Muscarinic Antagonist, Antidiarrheal Start: 12-10-2023 End: 12-22-2023 diphenoxylate-atro pine (LOMOTIL) 2.5-0.025 MG per tablet Indications: Salmonella food poisoning Take 1 tablet by mouth 4 times daily as needed for Diarrhea for up to 10 days. Max Daily Amount: 4 tablets 15 tablet 12/12/2023 12/22/2023 Active betamethasone 0.5 mg/ml / clotrimazole 10 mg/ml topical cream (17 sources) Azole Antifungal, Corticosteroid Start: 09-09-2021 clotrimazole-betam ethasone (LOTRISONE) 1-0.05 % cream 09/09/2021 Active busPIRone (4 sources) Start: 12-11-2023 take 1 tablet by mouth twice daily as needed for anxiety Buspirone Active 0 .ROUTE .COMPLEX 60 December 11, 2023 8:24am TAKE 1 TABLET BY MOUTH 2 TIMES A DAY NEEDED FOR ANXIETY Start: 12-03-2023 take 1 tablet by bandar once daily busPIRone (BUSPAR) 5 MG tablet Take 1 tablet by mouth daily 12/03/2023 Active Start: 12-03-2023 End: 12-11-2023 take 5 mg by mouth twice daily Buspirone Discontinued 5 MG PO Twice daily December 03, 2023 12:00am December 11, 2023 8:24am cefTRIAXone (ROCEPHIN) infusion (2 sources) Start: 12-13-2023 End: 12-17-2023 take 8 g intravenously every twenty-four hours cefTRIAXone (ROCEPHIN) infusion Indications: Salmonella food poisoning , Salmonella bacteremia Infuse 2,000 mg intravenously every 24 hours for 4 days Compound per protocol. Flush Midline/PICC Line with Normal Saline/Heparin flush per Protocol. Dressing Change per protocol. Remove Midline after last infusion. 8 g 12/13/2023 12/17/2023 Active cholecalciferol 0.125 mg oral capsule (5 sources) Vitamin D Start: 09-05-2023 End: 10-30-2023 take 125 ug by mouth once daily Cholecalciferol (Vitamin D3) Active 125 MCG PO Daily 90 October 30, 2023 2:22pm ergocalciferol 1.25 mg oral capsule (20 sources) Provitamin D2 Compound take 1 capsule by mouth every other week vitamin D (ERGOCALCIFEROL) 87639 UNITS CAPS capsule Take 1 capsule by mouth Ever 2 weeks Active escitalopram 5 mg oral tablet (7 sources) Serotonin Reuptake Inhibitor Start: 12-10-2023 Start: 10-03-2023 take 1 tablet by bandar th once daily escitalopram (LEXAPRO) 10 MG tablet Take 1 tablet by mouth daily 90 tablet 1 10/03/2023 Active fluticasone propionate 0.05 mg/actuat metered dose nasal spray (3 sources) Corticosteroid Start: 09-05-2023 take 1 spray(s) nasal route once daily Fluticasone Propionate (Flonase Allergy Relief) 50 mcg/actuation spray,suspension Active 1 SPRAY INTRANASAL Daily September 05, 2023 12:00am administer into each nostril montelukast 10 mg oral tablet (7 sources) Leukotriene Receptor Antagonist take 1 tablet by mouth once daily montelukast (SINGULAIR) 10 MG tablet Take 10 mg by mouth daily 0 Active omeprazole 20 mg delayed release oral capsule (20 sources) Proton Pump Inhibitor Start: 09-05-2023 take 20 mg by mouth once daily Omeprazole Active 20 MG PO Daily September 05, 2023 12:00am omeprazole (PRIL OSEC) 20 MG capsule Indications: Pt states she takes it as needed Take 1 capsule by mouth as needed Indications: Pt states she takes it as needed 0 Active ondansetron (ZOFRAN-ODT) disintegrating tablet 4 mg (1 source) Start: 12-10-2023 ondansetron (ZOFRAN-ODT) disintegrating tablet 4 mg pantoprazole (PROTONIX) 40 mg in sodium chloride (PF) 0.9 % 10 mL injection (1 source) Start: 12-10-2023 40 mg, IntraVE Nous, DAILY, First dose on 12/10/23 at 0900, Reconstitute with 10 mL 0.9 % sodium chloride and administer over at least 2 minutes. microencapsulated potassium chloride 20 meq extended release oral tablet (2 sources) Start: 12-12-2023 End: 12-17-2023 take 1 tablet by mouth once daily potassium chloride (KLOR-CON M) 20 MEQ extended release tablet Take 1 tablet by mouth daily for 5 days 5 tablet 12/12/2023 12/17/2023 Active 1000 ml potassium chloride 0.02 meq/ml / sodium chloride 9 mg/ml injection (1 source) Start: 12-10-2023 IntraVENous, a t 125 mL/hr, CONTINUOUS, Starting on Sun12/10/23 at 1600 Safety Evergreen (Bd Eclipse Luer-Ciro) 30 x 1/2 needle (4 sources) Start: 10-30-2023 Safety Evergreen (Bd Eclipse Luer-Ciro) 30 x 1/2 needle Active 0 .Route 3 October 30, 2023 2:23pm 1 injection monthly Start: 09-18-2023 End: 10-30-2023 Safety Evergreen (Bd Eclipse L uer-Ciro) 30 x 1/2 needle Discontinued 0 .Route 3 September 18, 2023 12:00am October 30, 2023 2:23pm 1 injection monthly sertraline 25 mg oral tablet (2 sources) Serotonin Reuptake Inhibitor Start: 12-10-2023 Start: 11-05-2023 End: 12-12-2023 take 1 tablet by mouth once daily sertraline (ZOLOFT) 50 MG tablet Take 1 tablet by mouth daily 90 tablet 1 11/05/2023 12/12/2023 Discontinued (Stop Taking at Discharge) Sod Citrate-Citric Acid (CYT RA-2 PO) (4 sources) Sod Citrate-Citr ic Acid (CYTRA-2 PO) Take 20 mg by mouth daily. 0 Active 5 ml sodium chloride 9 mg/ml injection (9 sources) Start: 12-14-2023 End: 12-15-2023 5-40 mL, IntraVENous, PRN, Starting on Sun12/14/23 at 1406, Until 12/15/23 at 0805, Line Care, If following IV push medication, administer flush at same rate as the IV push. Flush volume is determined by type of infusion therapy being given. For non-viscous solutions use: Peripheral IV = 5 mL Midline or Central Line = 10 mL/lumen For viscous solutions (i.e. blood components, parenteral nutrition, contrast media, or after obtaining blood sample) use: Peripheral IV = 10 mL Midline or Central Line = 20 mL/lumen Start: 12-10-2023 10 mL, IntraVE Nous, EVERY 12 HOURS SCHEDULED (2 times per day), First dose on Sun12/10/23 at 0900, Until Discontinued Start: 12-10-2023 Start: 12-10-2023 End: 12-10-2023 IntraVENous, at 100 mL/hr, C ONTINUOUS, Starting on Sun12/10/23 at 0145, For 48 hours Start: 12-09-2023 End: 12-10-2023 1,000 mL (18.7 mL/kg), Intra VENous, at 495.9 mL/hr, Administer over 121 Minutes, ONCE, On Sun12/10/23 at 0000, For 1 dose Start: 12-09-2023 End: 12-09-2023 1,000 mL (18.7 mL/kg), Intra VENous, at 495.9 mL/hr, Administer over 121 Minutes, ONCE, On Sun12/09/23 at 1930, For 1 dose, For adult patients weighing > 55 kg (120 lbs.) and less than Start: 08-21-2023 End: 08-21-2023 sodium chloride 0.9 % bolus 1,000 mL SUMAtriptan 50 mg oral tablet (20 sources) Serotonin-1b and Serotonin-1d Receptor Agonist Start: 09-05-2023 Sumatriptan Succinat e Active 50 MG PO Every 2 hours September 05, 2023 12:00am do not exceed 4 doses per 24 hrs Start: 01-02-2023 take 1 tablet by bandar twice daily as needed SUMAtriptan (IMITREX) 50 MG tablet Take 1 tablet by mouth 2 times daily as needed 01/02/2023 Active take 1 tablet by bandar th once as needed SUMAtriptan (IMITREX) 100 MG tablet Take 100 mg by mouth once as needed for Migraine 0 Active Syringe (Disposable) (Bd Luer-Ciro Syringe) 1 mL syringe (2 sources) Start: 10-31-2023 Syringe (Disposable) (Bd Luer-Ciro Syringe) 1 mL syringe Active 0 .Route 100 October 31, 2023 12:00am Use for monthly B12 injection 30 actuat umeclidinium 0.0625 mg/actuat / vilanterol 0.025 mg/actuat dry powder inhaler (11 sources) Anticholinergi c, beta2-Adrenerg ic Agonist Start: 09-29-2022 take 1 puff(s) by inhalation once daily ANORO ELLIPTA 62.5-25 MCG/ACT inhaler Inhale 1 puff into the lungs daily 09/29/2022 Active Start: 09-29-2022 ANORO ELLIPTA 62.5-25 MCG/ACT inhaler vitamin b12 1 mg/ml injectable solution (20 sources) Vitamin B12 Start: 10-30-2023 inject 1000 ug by intramuscular injection every month Cyanocobalamin (Vitamin B-12) Active 1000 MCG IM every month October 30, 2023 2:22pm Start: 10-30-2023 End: 10-30-2023 inject 1000 ug by intramuscular injection every month Cyanocobalamin (Vitamin B-12) Discontinued 1000 MCG IM every month October 30, 2023 12:00am October 30, 2023 2:23pm Cyanocobalamin ( VITAMIN B-12 IJ) Inject as directed every 30 days. Active Cyanocobalamin ( VITAMIN B-12 IJ) Inject as directed every 30 days. 0 Active Completed/Discontinued Medications Medication Drug Class(es) Dates Sig (Normalized) Sig (Original) acetaminophen 325 mg / butalbital 50 mg / caffeine 40 mg oral tablet (20 sources) Barbiturate, Central Nervous System Stimulant, Methylxanthine Start: 12-10-2023 1 tablet, Oral, EVERY 4 HOURS PRN, Starting on 12/10/23 at 0129, Until Discontinued, Headaches, Maximum dose of acetaminophen is 4000 mg from all sources in 24 hours. Start: 09-05-2023 End: 11-12-2023 take 1 capsule by mouth every eight hours Bzdbdvelff-Ddbjqnzfttqal-Bhyw (Fioricet) 50-300-40 mg capsule Discontinued 1 CAP PO Every 8 hours 01 22September 12, 2023 8:56am November 12, 2023 10:34am alendronic acid 70 mg oral tablet (19 sources) Bisphosphonate Start: 09-05-2023 End: 10-03-2023 take 1 tablet by mouth every week Alendronate (Fosamax) 70 mg tablet Discontinued 70 MG PO every week September 05, 2023 12:00am October 03, 2023 10:07am alendronate (FOS AMAX) 70 MG tablet Take 1 tablet by mouth every 7 days Mondays 0 Active ALPRAZolam 0.25 mg oral tablet (1 source) Benzodiazepine Start: 12-03-2023 End: 12-03-2023 take 0.25 mg by mouth once daily Alprazolam Discontinued 0.25 MG PO Daily December 03, 2023 12:00am December 03, 2023 8:20am cefTRIAXone (ROCEPHIN) 2,000 mg in sodium chloride 0.9 % 50 mL IVPB ([id number]) (2 sources) Start: 12-14-2023 End: 12-14-2023 2,000 mg, IntraVENous, ONCE, 1 dose, On Sun12/14/23 at 1430, Antimicrobial Indications: Bloodstream Infection Start: 12-10-2023 2,000 mg, Intr aVENous, EVERY 24 HOURS, First dose on Sun12/10/23 at 1600, Until Discontinued, Antimicrobial Indications: Bloodstream Infection cyclobenzaprine hydrochloride 10 mg oral tablet (20 sources) Muscle Relaxant Start: 08-10-2018 End: 12-06-2023 take 10 mg by mouth once daily at bedtime Cyclobenzaprine Discontinued 10 MG PO Daily at bedtime September 05, 2023 12:00am October 03, 2023 1:33pm DULoxetine 20 mg delayed release oral capsule (20 sources) Serotonin and Norepinephrine Reuptake Inhibitor Start: 12-10-2023 take 1 capsule by mouth once daily 20 mg, Oral, DAILY, First dose on Sun12/10/23 at 0900, Until Discontinued, Do not crush or break. May add contents of capsule to apple juice or apple sauce, but not chocolate. Start: 09-05-2023 End: 10-30-2023 take 1 capsule by mouth once daily Duloxetine (Cymbalta) 60 mg capsule,delayed release(DR/EC) Active 60 MG PO Daily October 30, 2023 2:22pm 0.3 ml enoxaparin sodium 100 mg/ml prefilled syringe (1 source) Low Molecular Weight Heparin Start: 12-10-2023 inject 30 mg by subcutaneous injection once daily 30 mg, SubCUTAneous, DAILY, First dose on Sun12/10/23 at 0900, Until Discontinued, Indication of Use: Prophylaxis-DVT/PE gabapentin 300 mg oral capsule (20 sources) Anti-epileptic Agent Start: 09-05-2023 End: 10-03-2023 take 300 mg by mouth three times daily Gabapentin Discontinued 300 MG PO Three times daily September 05, 2023 12:00am October 03, 2023 10:07am On Hold: None 50 ml magnesium sulfate 40 mg/ml injection (1 source) Start: 12-09-2023 End: 12-09-2023 2,000 mg, IntraVENous, at 25 mL/hr, Administer over 2 Hours, ONCE, On Sun12/09/23 at 2000, For 1 dose, Recommended infusion rate of 1 gram/hour. 10 actuat olodaterol 0.0025 mg/actuat / tiotropium 0.0025 mg/actuat inhalation spray (1 source) Anticholinergi c, beta2-Adrenerg ic Agonist Start: 12-10-2023 take 2 puff(s) by inhalation once daily 2 puff, Inhalation, DAILY, First dose on Sun12/10/23 at 0900, Until Discontinued, Substituted for Umeclidinium-Vilanterol (ANORO ELLIPTA). piperacillin-fabian obactam (ZOSYN) 3,375 mg in sodium chloride 0.9 % 50 mL IVPB ([id number]) (2 sources) Start: 12-10-2023 End: 12-10-2023 Start: 12-09-2023 End: 12-09-2023 potassium bicarbonate 20 meq effervescent oral tablet (2 sources) Start: 12-12-2023 End: 12-12-2023 take 3-4 tablets by mouth once 40 mEq, Oral, ONCE, 1 dose, On Sun12/12/23 at 1200, Do not chew or crush. Dissolve flavored tablets completely in 3 to 4 ounces of cold water; unflavored tablets may be dissolved in 3 to 4 ounces of cold juice. Patient to sip slowly over a 5 to 10 minute period. May further dilute if GI adverse effects occur. Start: 12-11-2023 End: 12-11-2023 take 3-4 tablets by mouth once 40 mEq, Oral, ONCE, 1 d ose, On Sun12/11/23 at 0915, Do not chew or crush. Dissolve flavored tablets completely in 3 to 4 ounces of cold water; unflavored tablets may be dissolved in 3 to 4 ounces of cold juice. Patient to sip slowly over a 5 to 10 minute period. May further dilute if GI adverse effects occur. regadenoson (LEXISCAN) injec tion 0.4 mg (1 source) Start: 10-01-2023 End: 10-01-2023 regadenoson (LEXISCAN) injection 0.4 mg vancomycin (VANCOCIN) 1,250 mg in sodium chloride 0.9 % 250 mL IVPB (1 source) Start: 12-09-2023 End: 12-10-2023 1,250 mg (rounded from 1,337 .5 mg = 25 mg/kg 53.5 kg), IntraVENous, at 166.7 mL/hr, Administer over 90 Minutes, ONCE, On 12/09/23 at 2230, For 1 dose Problems Active Problems Problem Classification Problem Date Documented Da te Episodic/Chronic Acute and unspecified renal failure (14 sources) Acute renal failure syndrome; Translations: [Acute kidney failure, unspecified] Onset: 02-25-2023 02-25-2023 Episodic Anxiety disorders (2 sources) Anxiety; Translations: [Anxiety disorder, unspecified] 12-03-2023 Chronic Asthma (2 sources) Unspecified asthma, uncomplicated; Translations: [Unspecified asthma, uncomplicated] Onset: 02-27-2023 Chronic Bacterial infection; unspecified site (6 sources) Bacteremia due to Salmonella; Translations: [Bacteremia] Onset: 12-10-2023 12-12-2023 Episodic Cardiac dysrhythmias (4 sources) Tachycardia; Translations: [Tachycardia, unspecified] Onset: 10-02-2023 Episodic Conditions associated with dizziness or vertigo (6 sources) Lightheadedness; Translations: [Dizziness and giddiness] Onset: 10-02-2023 08-21-2023 Episodic Deficiency and other anemia (2 sources) Pernicious anemia; Translations: [Vitamin B12 deficiency anemia due to intrinsic factor deficiency] 09-17-2023 Episodic Deficiency and other anemia (2 sources) Vitamin B12 deficiency anemia due to intrinsic factor deficiency; Translations: [Pernicious anemia] 09-05-2023 Episodic Disorders of lipid metabolism (2 sources) Hyperlipidemia, unspecified; Translations: [Hyperlipidemia, unspecified] Onset: 07-13-2023 Chronic Essential hypertension (2 sources) Essential (primary) hypertension; Translations: [Essential (primary) hypertension] Onset: 07-13-2023 Chronic Headache; including migraine (4 sources) Migraine; Translations: [Migraine, unspecified, not intractable, without status migrainosus] 09-12-2023 Chronic Immunizations and screening for infectious disease (1 source) Encounter for immunization; Translations: [Encounter For Immunization] Onset: 06-16-2020 Episodic Intestinal infection (6 sources) Salmonella food poisoning ; Translations: [Salmonella infection, unspecified] Onset: 12-11-2023 12-12-2023 Episodic Osteoporosis (6 sources) Osteoporosis; Translations: [Age-related osteoporosis without current pathological fracture] Onset: 09-19-2023 09-05-2023 Chronic Other connective tissue disease (2 sources) Fibromyalgia; Translations: [Fibromyalgia] 09-12-2023 Episodic Other connective tissue disease (2 sources) Fibromyalgia; Translations: [Myalgia and myositis, unspecified] 09-05-2023 Episodic Other connective tissue disease (1 source) Swelling of upper limb; Translations: [Other specified soft tissue disorders] 12-17-2023 Episodic Other connective tissue disease (1 source) Other specified soft tissue disorders; Translations: [Swelling of limb] 12-17-2023 Episodic Other gastrointestinal disorders (20 sources) Intestinal malabsorption; Translations: [Intestinal malabsorption, unspecified] Onset: 09-06-2018 09-06-2018 Chronic Other gastrointestinal disorders (1 source) Malabsorption syndrome; Translations: [Other intestinal malabsorption] Chronic Other gastrointestinal disorders (4 sources) Diarrhea; Translations: [Diarrhea, unspecified] Onset: 12-10-2023 12-09-2023 Episodic Other gastrointestinal disorders (1 source) Diarrhea, unspecified; Translations: [Diarrhea, unspecified] Onset: 12-10-2023 Episodic Other injuries and conditions due to external causes (3 sources) Fracture of bone; Translations: [Unspecified multiple injuries, initial encounter] 09-17-2023 Episodic Other injuries and conditions due to external causes (1 source) Other injury of unspecified body region, initial encounter; Translations: [Other injury of unspecified body region, initial encounter] Onset: 10-09-2023 Episodic Other lower respiratory disease (3 sources) [...] of nicotine dependence] Onset: 10-02-2023 09-25-2023 Episodic Septicemia (except in labor) (5 sources) Infectious agent in bloodstream; Translations: [Sepsis, unspecified organism] Onset: 12-10-2023 12-09-2023 Episodic Thyroid disorders (2 sources) Nontoxic single thyroid nodule; Translations: [Nontoxic single thyroid nodule] Onset: 07-13-2023 Chronic Unclassified (2 sources) Fracture Left Foot/Ankle; Translations: [Fracture Left Foot/Ankle] Onset: 10-09-2023 Past or Other Problems Problem Classification Problem Date Documented Da te Episodic/Chronic Deficiency and other anemia (20 sources) Microcytic [...] unspecified; Translations: [Anemia, unspecified] Onset: 02-27-2023 Episodic E Codes: Fall (2 sources) Fall; Translations: [Unspecified fall, initial encounter] Onset: 08-21-2023 08-21-2023 Episodic Fluid and electrolyte disorders (3 sources) Dehydration; Translations: [Dehydration] Onset: 08-21-2023 08-21-2023 Episodic Fracture of lower limb (10 sources) Closed fracture of left ankle; Translations: [Other fracture of left lower leg, initial encounter for closed fracture] Onset: 08-21-2023 08-21-2023 Episodic Other injuries and conditions due to external causes (1 source) Unspecified multiple injuries, initial encounter; Translations: [Unspecified multiple injuries, initial encounter] Onset: 09-17-2023 Episodic Other non-traumatic joint disorders (2 sources) Shoulder pain; Translations: [Shoulder Pain] Onset: 02-25-2023 Episodic Syncope (13 sources) Syncope and collapse; Translations: [Syncope and collapse] Onset: 02-25-2023 02-25-2023 Episodic Results Test Name Value Interpretation Reference Range [facility] Basic Metabolic Profon 12-16 Anion gap [Moles/Vol] 11 mmol/L Normal 9-16 [facility] Comment on above: Performed By: #### C P, CDP #### [facility] [address] [place] [address] [place] [address] Director Validation: Sravani Gordon MD #### LIPR #### [address] [address] [address] Director Validation: Robi Veliz MD BUN/CRE Ratio 6 Low 9-20 [facility] Comment on above: Performed By: #### C P, CDP #### [address] [place] [address] Director Validation: Sravani Gordon MD #### LIPR #### [address] [id number] Director Validation: Robi Veliz MD Calcium [Mass/Vol] 9.4 mg/dL Normal 8.6-10.4 [facility] Comment on above: Performed By: #### C P, CDP #### [address] [place] [address] Director Validation: Sravani Gordon MD #### LIPR #### [address] [place] [address] Director Validation: Robi Veliz MD Chloride [Moles/Vol] 108 mmol/L High 98-107 [facility] Comment on above: Performed By: #### C P, CDP #### [facility] [address] [place], [place] [id number] Director Validation: Sravani Gordon MD #### LIPR #### [address] [address] Director Validation: Robi Veliz MD CO2 [Moles/Vol] 23 mmol/L Normal 20-31 [facility] Comment on above: Performed By: #### C P, CDP #### [facility] [address] [place], [place] [id number] Director Validation: Sravani Gordon MD #### LIPR #### [address] [address] Director Validation: Robi Veliz MD Creatinine [Mass/Vol] 0.7 mg/dL Normal 0.50-0.90 [facility] Comment on above: Performed By: #### C P, CDP #### [facility] [address] [place], [place] [id number] Director Validation: Sravani Gordon MD #### LIPR #### [address] [address] Director Validation: Robi Veliz MD GFR/1.73 sq M.predicted among non-blacks MDRD (S/P/Bld) [Vol rate/Area] mL/min/{1.73_m2} Normal >60 [facility] Comment on above: Result Comment: These [...] renal tubular secretion. Performed By: #### C P, CDP #### [address] [place], [place] [id number] Director Validation: Sravani Gordon MD #### LIPR #### [address] [address] Director Validation: Robi Veliz MD Glucose [Mass/Vol] 174 mg/dL High 74-99 [facility] Comment on above: Performed By: #### C P, CDP #### [address] [place] [id number] ( Director Validation: Sravani Gordon MD #### LIPR #### [address] [address] Director Validation: Robi Veliz MD Potassium [Moles/Vol] 3.0 mmol/L Low 3.7-5.3 [facility] Comment on above: Performed By: #### C P, CDP #### [address] [place] [id number] ( Director Validation: Sravani Gordon MD #### LIPR #### [address] [address] Director Validation: Robi Veliz MD Sodium [Moles/Vol] 142 mmol/L Normal 136-145 [facility] Comment on above: Performed By: #### C P, CDP #### [address] [place] [id number] Director Validation: Sravani Gordon MD #### LIPR #### [address] [address] Director Validation: Robi Veliz MD Urea nitrogen [Mass/Vol] 4 mg/dL Low 8-23 [facility] Comment on above: Performed By: #### C P, CDP #### [facility] [address] [place] [phone] ( Director Validation: Sravani Gordon MD #### LIPR #### [address] [id number] Director Validation: Robi Veliz MD CBC with Diffon 12-17-2023 Abs. Basophil 0.18 k/uL Normal 0.0-0.2 [facility] Comment on above: Performed By: #### C P, CDP #### [facility] [address] [place] [phone] ( Director Validation: Sravani Gordon MD #### LIPR #### [address] [id number] Director Validation: Robi Veliz MD Abs.Imm.Granulocyte 0.18 k/uL Normal 0.00-0.30 [facility] Comment on above: Performed By: #### C P, CDP #### [facility] [address] [place] [phone] ( Director Validation: Sravani Gordon MD #### LIPR #### [address] [address] Director Validation: Robi Veliz MD Abs.Neutrophil (Seg) 6.13 k/uL Normal 1.50-8.10 [facility] Comment on above: Performed By: #### C P, CDP #### [facility] [address] [place] [address] Dr[place] [id number] Director Validation: Sravani Gordon MD #### LIPR #### [address] [address] Director Validation: Robi Veliz MD Basophils/100 WBC (Bld) 2 % Normal 0-2 [facility] Comment on above: Performed By: #### C P, CDP #### [facility] [address] [place] [address] [place], [place] [phone] Director Validation: Sravani Gordon MD #### LIPR #### [address] [address] Director Validation: Robi Veliz MD Eosinophils (Bld) [#/Vol] 0.27 10*3/uL Normal 0.00-0.44 [facility] Comment on above: Performed By: #### C P, CDP #### [facility] [address] [place] [address] [place], [place] 1925883 Director Validation: Sravani Gordon MD #### LIPR #### [address] [id number] Director Validation: Robi Veliz MD Eosinophils/100 WBC (Bld) 3 % Normal 1-4 [facility] Comment on above: Performed By: #### C P, CDP #### [address] [place] [id number] Director Validation: Sravani Gordon MD #### LIPR #### [address] [address] Director Validation: Robi Veliz MD Immature granulocytes/100 WBC (Bld) 2 % High 0 [facility] Comment on above: Performed By: #### C P, CDP #### [address] [place], [place] [id number] Director Validation: Sravani Gordon MD #### LIPR #### [address] [address] Director Validation: Robi Veliz MD Lymphocytes (Bld) [#/Vol] 1.71 10*3/uL Normal 1.10-3.70 [facility] Comment on above: Performed By: #### C P, CDP #### [facility] [address] [place] [address] Dr. [place], [place] 4709083 Director Validation: Sravani Gordon MD #### LIPR #### [address] [address] Director Validation: Robi Veliz MD Lymphocytes/100 WBC (Bld) 19 % Low 24-43 [facility] Comment on above: Performed By: #### C P, CDP #### [facility] [address] [place] [address] Dr. [place] [phone] Director Validation: Sravani Gordon MD #### LIPR #### [address] [address] Director Validation: Robi Veliz MD Monocytes (Bld) [#/Vol] 0.54 10*3/uL Normal 0.10-1.20 [facility] Comment on above: Performed By: #### C P, CDP #### [facility] [address] [place] [address] Dr. [place] [phone] Director Validation: Sravani Gordon MD #### LIPR #### [address] [address] Director Validation: Robi Veliz MD Monocytes/100 WBC (Bld) 6 % Normal 3-12 [facility] Comment on above: Performed By: #### C P, CDP #### [facility] [address] [place] [address] Dr. [place] [phone] Director Validation: Sravani Gordon MD #### LIPR #### [address] [address] Director Validation: Robi Veliz MD Morphology Wicho (Bld) [Interp] Normal Normal [facility] Comment on above: Performed By: #### C P, CDP #### [address] [place] [phone] Director Validation: Sravani Gordon MD #### LIPR #### [address] [place] [address] Director Validation: Robi Veliz MD Neutrophil (Seg) 68 % High 36-65 [facility] Comment on above: Performed By: #### C P, CDP #### [facility] [address] [place] [address] Dr. [place], [place] [phone] Director Validation: Sravani Gordon MD #### LIPR #### [address] [address] Director Validation: Robi Veliz MD Nucleated RBC'S 1 per 100 WBC Normal 0-5 [facility] Comment on above: Performed By: #### C P, CDP #### [address] [place] [phone] Director Validation: Sravani Gordon MD #### LIPR #### [address] [address] Director Validation: Robi Veliz MD WBC (Bld) [#/Vol] 9.0 10*3/uL Normal 3.5-11.3 [facility] Comment on above: Result Comment: ADJU STED FOR NUCLEATED RBC'S CORRECTED ON 12/16 AT 1614: PREVIOUSLY REPORTED 9.1 Performed By: #### C P, CDP #### [address] [place] [phone] Director Validation: Sravani Gordon MD #### LIPR #### [address] [address] Director Validation: Robi Veliz MD Erythrocyte distribution width (RBC) [Ratio] 14.2 % Normal 11.8-14.4 [facility] Comment on above: Performed By: #### C P, CDP #### [address] [place], [place] 0657783 Director Validation: Sravani Gordon MD #### LIPR #### [address] [place], [place] [id number] Director Validation: Robi Veliz MD Hematocrit (Bld) [Volume fraction] 32.1 % Low 36.3-47.1 [facility] Comment on above: Performed By: #### C P, CDP #### [facility] [address] [place] [address] Dr. [place] [phone] Director Validation: Sravani Gordon MD #### LIPR #### [address] [place], [place] [id number] Director Validation: Robi Veliz MD Hemoglobin (Bld) [Mass/Vol] 11.2 g/dL Low 11.9-15.1 [facility] Comment on above: Performed By: #### C P, CDP #### [address] [place] [phone] Director Validation: Sravani Gordon MD #### LIPR #### [address] [place], [place] [id number] Director Validation: Robi Veliz MD MCH (RBC) [Entitic mass] 30.8 pg Normal 25.2-33.5 [facility] Comment on above: Performed By: #### C P, CDP #### [address] [place] [phone] Director Validation: Sravani Gordon MD #### LIPR #### [address] [place], [place] [id number] Director Validation: Robi Veliz MD MCHC (RBC) [Mass/Vol] 34.9 g/dL High 28.4-34.8 [facility] Comment on above: Performed By: #### C P, CDP #### [address] [place] [phone] Director Validation: Sravani Gordon MD #### LIPR #### [address] [place] [address] Director Validation: Robi Veliz MD MCV (RBC) [Entitic vol] 88.2 fL Normal 82.6-102.9 [facility] Comment on above: Performed By: #### C P, CDP #### [facility] [address] [place] [address] Dr. [place], [place] 1478783 Director Validation: Sravani Gordon MD #### LIPR #### [address] [address] Director Validation: Robi Veliz MD NRBC Automated 0.0 per 100 WBC Normal 0.0 [facility] Comment on above: Performed By: #### C P, CDP #### [facility] [address] [place] [address] Dr. [place] [phone] Director Validation: Sravani Gordon MD #### LIPR #### [address] [address] Director Validation: Robi Veliz MD Platelet mean volume (Bld) [Entitic vol] 9.7 fL Normal 8.1-13.5 [facility] Comment on above: Performed By: #### C P, CDP #### [address] [place], [place] [id number] Director Validation: Sravani Gordon MD #### LIPR #### [address] [address] Director Validation: Robi Veliz MD Platelets (Bld) [#/Vol] 441 10*3/uL Normal 138-453 [facility] Comment on above: Performed By: #### C P, CDP #### [address] [place], [place] 4878983 Director Validation: Sravani Gordon MD #### LIPR #### [address] [id number] Director Validation: Robi Veliz MD RBC (Bld) [#/Vol] 3.64 10*6/uL Low 3.95-5.11 [facility] Comment on above: Performed By: #### C P, CDP #### [facility] [address] [place], [place] [id number] Director Validation: Sravani Gordon MD #### LIPR #### [address] [place], [place] 0607408 Director Validation: Robi Veliz MD Organism ID w/ Sension [id number] Organism ID w/ Sensi Specimen Description .FECES Culture SALMONELLA SPECIES Report Status FINAL 12/14/2023 [facility] Comment on above: Performed By: #### C P, CDP #### [facility] [address] [place], [place] [id number] Director Validation: Sravani Gordon MD #### LIPR #### [address] [place], [place] [id number] Director Validation: Robi Veliz MD Blood Culture 1on 12-12-2023 Interpretation and review of laboratory results Abnormal [facility] Microorganism identified Cx Nom (Unsp spec) Positive Abnormal [facility] Microorganism identified Cx Nom (Unsp spec) Negative [facility] Microorganism identified Cx Nom (Unsp spec) Salmonella species Detected: Methodology- Polymerase Chain Reaction (PCR) Results reported to the appropriate Health Department [facility] Microorganism identified Cx Nom (Unsp spec) SALMONELLA SPECIES Results reported to the appropriate Health Department Critically abnormal [facility] Microorganism identified Cx Nom (Unsp spec) (NOTE) Direct Gram Stain from bottle result called to and read back by:TEE COSTELLO RN T [facility] 12/10/23 1520 BY AMIE [facility] Service comment (Unsp spec) [Interp] LAC by AMIE in ER [facility] Specimen Description .BLOOD 20ML [facility] CBC auto differentialon 11-24 Basophils (Bld) [#/Vol] 0.07 10*3/uL [facility] Basophils/100 WBC (Bld) 2 % 0 - 2 % [facility] Eosinophils (Bld) [#/Vol] 0.07 10*3/uL [facility] Eosinophils/100 WBC (Bld) 2 % 1 - 4 % [facility] Erythrocyte distribution width (RBC) [Ratio] 14.0 % 11.8 - 14.4 % [facility] Hematocrit (Bld) [Volume fraction] 30.1 % Low 36.3 - 47.1 % [facility] Hemoglobin (Bld) [Mass/Vol] 10.3 g/dL Low 11.9 - 15.1 g/dL [facility] Immature granulocytes (Bld) [#/Vol] 0.00 10*3/uL [facility] Immature granulocytes/100 WBC (Bld) 0 % 0 [facility] Interpretation and review of laboratory results Abnormal [facility] Lymphocytes/100 WBC (Bld) 17 % Low 24 - 43 % [facility] Lymphocytes/100 WBC (Bld) 0.63 % Low [facility] MCH (RBC) [Entitic mass] 30.9 pg 25.2 - 33.5 pg [facility] MCHC (RBC) [Mass/Vol] 34.2 g/dL 28.4 - 34.8 g/ dL [facility] MCV (RBC) [Entitic vol] 90.4 fL 82.6 - 102.9 fL [facility] Monocytes/100 WBC (Bld) 15 % High 3 - 12 % [facility] Monocytes/100 WBC (Bld) 0.56 % [facility] Morphology Wicho (Bld) [Interp] Normal [facility] Neutrophils/100 WBC (Bld) 64 % 36 - 65 % [facility] Nucleated RBC/100 WBC (Bld) [Ratio] 0.0 % 0.0 per 100 WBC [facility] Platelet mean volume (Bld) [Entitic vol] 10.5 fL 8.1 - 13.5 fL [facility] Platelets (Bld) [#/Vol] 200 10*3/uL [facility] RBC (Bld) [#/Vol] 3.33 10*6/uL Low 3.95 - 5.11 m/uL [facility] Segmented neutrophils/100 WBC (Bld) 2.37 % [facility] WBC other (Bld) [#/Vol] 3.7 [facility] CBC with Diffon 12-12-2023 Abs. Basophil 0.07 k/uL Normal 0.0-0.2 [facility] Comment on above: Performed By: #### C P, CDP #### [facility] [address] [place] [id number] Director Validation: Sravani Gordon MD #### LIPR #### [address] [id number] Director Validation: Robi Veliz MD Abs.Imm.Granulocyte 0.00 k/uL Normal 0.00-0.30 [facility] Comment on above: Performed By: #### C P, CDP #### [facility] [address] [place] [address] Dr. [place] [phone] Director Validation: Sravani Gordon MD #### LIPR #### [address] [id number] Director Validation: Robi Veliz MD Abs.Neutrophil (Seg) 2.37 k/uL Normal 1.50-8.10 [facility] Comment on above: Performed By: #### C P, CDP #### [facility] [address] [place] [phone] Director Validation: Sravani Gordon MD #### LIPR #### [address] [address] Director Validation: Robi Veliz MD Basophils/100 WBC (Bld) 2 % Normal 0-2 [facility] Comment on above: Performed By: #### C P, CDP #### [facility] [address] [place], [place] 0063483 Director Validation: Sravani Gordon MD #### LIPR #### [address] [id number] Director Validation: Robi Veliz MD Eosinophils (Bld) [#/Vol] 0.07 10*3/uL Normal 0.00-0.44 [facility] Comment on above: Performed By: #### C P, CDP #### [address] [place], [place] 0103083 Director Validation: Sravani Gordon MD #### LIPR #### [address] [id number] Director Validation: Robi Veliz MD Eosinophils/100 WBC (Bld) 2 % Normal 1-4 [facility] Comment on above: Performed By: #### C P, CDP #### [address] [place] [phone] Director Validation: Sravani Gordon MD #### LIPR #### [address] [address] Director Validation: Robi Veliz MD Immature granulocytes/100 WBC (Bld) 0 % Normal 0 [facility] Comment on above: Performed By: #### C P, CDP #### [address] [place] [id number] Director Validation: Sravani Gordon MD #### LIPR #### [address] [address] Director Validation: Robi Veliz MD Lymphocytes (Bld) [#/Vol] 0.63 10*3/uL Low 1.10-3.70 [facility] Comment on above: Performed By: #### C P, CDP #### [address] [place], [place] [id number] Director Validation: Sravani Gordon MD #### LIPR #### [address] [address] Director Validation: Robi Veliz MD Lymphocytes/100 WBC (Bld) 17 % Low 24-43 [facility] Comment on above: Performed By: #### C P, CDP #### [facility] [address] [place] [address] [place] [address] Director Validation: Sravani Gordon MD #### LIPR #### [address] [address] Director Validation: Robi Veliz MD Monocytes (Bld) [#/Vol] 0.56 10*3/uL Normal 0.10-1.20 [facility] Comment on above: Performed By: #### C P, CDP #### [address] [place] [id number] Director Validation: Sravani Gordon MD #### LIPR #### [address] [address] Director Validation: Robi Veliz MD Monocytes/100 WBC (Bld) 15 % High 3-12 [facility] Comment on above: Performed By: #### C P, CDP #### [address] [place] [id number] Director Validation: Sravani Gordon MD #### LIPR #### [address] [address] Director Validation: Robi Veliz MD Morphology Wicho (Bld) [Interp] Normal Normal [facility] Comment on above: Performed By: #### C P, CDP #### [address] [place] [address] Director Validation: Sravani Gordon MD #### LIPR #### [address] [address] Director Validation: Robi Veliz MD Neutrophil (Seg) 64 % Normal 36-65 [facility] Comment on above: Performed By: #### C P, CDP #### [facility] [address] [place] [address] Dr. [place], [place] [id number] Director Validation: Sravani Gordon MD #### LIPR #### [address] [address] Director Validation: Robi Veliz MD Erythrocyte distribution width (RBC) [Ratio] 14.0 % Normal 11.8-14.4 [facility] Comment on above: Performed By: #### C P, CDP #### [address] [place], [place] [id number] Director Validation: Sravani Gordon MD #### LIPR #### [address] [address] Director Validation: Robi Veliz MD Hematocrit (Bld) [Volume fraction] 30.1 % Low 36.3-47.1 [facility] Comment on above: Performed By: #### C P, CDP #### [address] [place], [place] [id number] Director Validation: Sravani Gordon MD #### LIPR #### [address] [address] Director Validation: Robi Veliz MD Hemoglobin (Bld) [Mass/Vol] 10.3 g/dL Low 11.9-15.1 [facility] Comment on above: Performed By: #### C P, CDP #### [address] [place], [place] [id number] Director Validation: Sravani Gordon MD #### LIPR #### [address] [address] Director Validation: Robi Veliz MD MCH (RBC) [Entitic mass] 30.9 pg Normal 25.2-33.5 [facility] Comment on above: Performed By: #### C P, CDP #### [address] [place] [address] Director Validation: Sravani Gordon MD #### LIPR #### [address] [id number] Director Validation: Robi Veliz MD MCHC (RBC) [Mass/Vol] 34.2 g/dL Normal 28.4-34.8 [facility] Comment on above: Performed By: #### C P, CDP #### [address] [place] [address] Director Validation: Sravani Gordon MD #### LIPR #### [address] [id number] Director Validation: Robi Veliz MD MCV (RBC) [Entitic vol] 90.4 fL Normal 82.6-102.9 [facility] Comment on above: Performed By: #### C P, CDP #### [address] [place] [address] Director Validation: Sravani Gordon MD #### LIPR #### [address] [address] Director Validation: Robi Veliz MD NRBC Automated 0.0 per 100 WBC Normal 0.0 [facility] Comment on above: Performed By: #### C P, CDP #### [address] [place] [address] Director Validation: Sravani Gordon MD #### LIPR #### [address] [id number] Director Validation: Robi Veliz MD Platelet mean volume (Bld) [Entitic vol] 10.5 fL Normal 8.1-13.5 [facility] Comment on above: Performed By: #### C P, CDP #### [facility] [address] [place] [address] Director Validation: Sravani Gordon MD #### LIPR #### [address] [id number] Director Validation: Robi Veliz MD Platelets (Bld) [#/Vol] 200 10*3/uL Normal 138-453 [facility] Comment on above: Performed By: #### C P, CDP #### [address] [place] [id number] Director Validation: Sravani Gordon MD #### LIPR #### [place] [address] Director Validation: Robi Veliz MD RBC (Bld) [#/Vol] 3.33 10*6/uL Low 3.95-5.11 [facility] Comment on above: Performed By: #### C P, CDP #### [address] [place] [id number] Director Validation: Sravani Gordon MD #### LIPR #### [place] [address] Director Validation: Robi Veliz MD WBC (Bld) [#/Vol] 3.7 10*3/uL Normal 3.5-11.3 [facility] Comment on above: Performed By: #### C P, CDP #### [address] [place] [id number] Director Validation: Sravani Gordon MD #### LIPR #### [address] [address] Director Validation: Robi Veliz MD Comp Metabolic Pr/rfx MGon 0 12-12-2023 Albumin [Mass/Vol] 3.0 g/dL Low 3.5-5.2 [facility] Comment on above: Performed By: #### C P, CDP #### [facility] [address] [place] [address] [place] [address] Director Validation: Sravani Gordon MD #### LIPR #### [address] [address] Director Validation: Robi Veliz MD Albumin/Glob Ratio 1.4 Normal 1.0-2.5 [facility] Comment on above: Performed By: #### C P, CDP #### [address] [place] [phone] ( Director Validation: Sravani Gordon MD #### LIPR #### [address] [address] Director Validation: Robi Veliz MD Alkaline Phos 81 U/L Normal 35-104 [facility] Comment on above: Performed By: #### C P, CDP #### [address] [place] [address] Director Validation: Sravani Gordon MD #### LIPR #### [address] [address] Director Validation: Robi Veliz MD ALT [Catalytic activity/Vol] 16 U/L Normal 10-35 [facility] Comment on above: Performed By: #### C P, CDP #### [address] [place] [address] Director Validation: Sravani Gordon MD #### LIPR #### [address] [address] Director Validation: Robi Veliz MD Anion gap [Moles/Vol] 10 mmol/L Normal 9-16 [facility] Comment on above: Performed By: #### C P, CDP #### [facility] [address] [place], [place] [id number] Director Validation: Sravani Gordon MD #### LIPR #### [address] [place] [address] Director Validation: Robi Veliz MD AST [Catalytic activity/Vol] 24 U/L Normal 10-35 [facility] Comment on above: Performed By: #### C P, CDP #### [facility] [address] [place], [place] 9003783 Director Validation: Sravani Gordon MD #### LIPR #### [address] [address] Director Validation: oRbi Veliz MD Bilirubin [Mass/Vol] mg/dL Normal 0.00-1.20 [facility] Comment on above: Performed By: #### C P, CDP #### [address] [place], [place] [id number] Director Validation: Sravani Gordon MD #### LIPR #### [address] [address] Director Validation: Robi Veliz MD BUN/CRE Ratio 6 Low 9-20 [facility] Comment on above: Performed By: #### C P, CDP #### [address] [place] [address] Director Validation: Sravani Gordon MD #### LIPR #### [address] [address] Director Validation: Robi Veliz MD Calcium [Mass/Vol] 8.0 mg/dL Low 8.6-10.4 [facility] Comment on above: Performed By: #### C P, CDP #### [address] [place] [address] Director Validation: Sravani Gordon MD #### LIPR #### [address] [place], [place] [id number] Director Validation: Robi Veliz MD Chloride [Moles/Vol] 114 mmol/L High 98-107 [facility] Comment on above: Performed By: #### C P, CDP #### [facility] [address] [place] [address] Director Validation: Sravani Gordon MD #### LIPR #### [address] [id number] Director Validation: Robi Veliz MD CO2 [Moles/Vol] 16 mmol/L Low 20-31 [facility] Comment on above: Performed By: #### C P, CDP #### [facility] [address] [place] [phone] Director Validation: Sravani Gordon MD #### LIPR #### [address] [id number] Director Validation: Robi Veliz MD Creatinine [Mass/Vol] 0.8 mg/dL Normal 0.50-0.90 [facility] Comment on above: Performed By: #### C P, CDP #### [facility] [address] [place] [address] [place] [phone] Director Validation: Sravani Gordon MD #### LIPR #### [address] [id number] Director Validation: Robi Veliz MD GFR/1.73 sq M.predicted among non-blacks MDRD (S/P/Bld) [Vol rate/Area] 81 mL/min/{1.73_m2} Normal >60 [facility] Comment on above: Result Comment: These [...] renal tubular secretion. Performed By: #### C P, CDP #### [address] [place], [place] [id number] Director Validation: Sravani Gordon MD #### LIPR #### [address] [address] Director Validation: Robi Veliz MD Glucose [Mass/Vol] 93 mg/dL Normal 74-99 [facility] Comment on above: Performed By: #### C P, CDP #### [address] [place] [phone] Director Validation: Sravani Gordon MD #### LIPR #### [address] [address] Director Validation: Robi Veliz MD Potassium [Moles/Vol] 3.0 mmol/L Low 3.7-5.3 [facility] Comment on above: Performed By: #### C P, CDP #### [address] [place], [place] [id number] Director Validation: Sravani Gordon MD #### LIPR #### [address] [address] Director Validation: Robi Veliz MD Protein [Mass/Vol] 5.1 g/dL Low 6.6-8.7 [facility] Comment on above: Performed By: #### C P, CDP #### [address] [place], [place] [phone] Director Validation: Sravani Gordon MD #### LIPR #### [address] [address] Director Validation: Robi Veliz MD Sodium [Moles/Vol] 140 mmol/L Normal 136-145 [facility] Comment on above: Performed By: #### C P, CDP #### [facility] [address] [place] [address] Director Validation: Sravani Gordon MD #### LIPR #### [facility] [address] [place], [place] [phone] Director Validation: Robi Veliz MD Urea nitrogen [Mass/Vol] 5 mg/dL Low 8-23 [facility] Comment on above: Performed By: #### C P, CDP #### [facility] [address] [place] [address] Director Validation: Sravani Gordon MD #### LIPR #### [facility] [address] [place], [place] [id number] Director Validation: Robi Veliz MD Comprehensive Metabolic Pane l w/ Reflex to MGon 12-12-2023 Albumin [Mass/Vol] 3.0 g/dL Low 3.5 - 5.2 g/dL [facility] Albumin/Globulin [Mass ratio] 1.4 {ratio} 1.0 - 2.5 [facility] ALP [Catalytic activity/Vol] 81 U/L 35 - 104 U/L [facility] ALT [Catalytic activity/Vol] 16 U/L 10 - 35 U/L [facility] Anion gap [Moles/Vol] 10 mmol/L 9 - 16 mmol/L [facility] AST [Catalytic activity/Vol] 24 U/L 10 - 35 U/L [facility] Bilirubin [Mass/Vol] mg/dL 0.00 - 1.20 mg/ dL [facility] Calcium [Mass/Vol] 8.0 mg/dL Low 8.6 - 10.4 mg/dL [facility] Chloride [Moles/Vol] 114 mmol/L High 98 - 107 mmol/L [facility] CO2 [Moles/Vol] 16 mmol/L Low 20 - 31 mmol/L [facility] Creatinine [Mass/Vol] 0.8 mg/dL 0.50 - 0.90 mg /dL [facility] Est, Glom Filt Rate 81 - PINF [facility] Comment on above: These results are not [...] that affects renal tubular secretion. Glucose [Mass/Vol] 93 mg/dL 74 - 99 mg/dL [facility] Interpretation and review of laboratory results Abnormal [facility] Potassium [Moles/Vol] 3.0 mmol/L Low 3.7 - 5.3 mmol /L [facility] Protein [Mass/Vol] 5.1 g/dL Low 6.6 - 8.7 g/dL [facility] Sodium [Moles/Vol] 140 mmol/L 136 - 145 mmol/L [facility] Urea nitrogen [Mass/Vol] 5 mg/dL Low 8 - 23 mg/dL [facility] Urea nitrogen/Creatinine [Mass ratio] 6 mg/mg Low 9 - 20 [facility] Cult, Bloodon 12-12-2023 Cult, Blood Specimen Description .BLOOD 3ML Special Requests BCAE ONLY RT WRIST by RW in ER Culture POSITIVE BLOOD CULTURE, RN NOTIFIED: TEE COSTELLO, RN, [facility] 12[facility]10[facility]23, 1645, DJR RB DIRECT GRAM STAIN FROM BOTTLE: GRAM NEGATIVE RODS SALMONELLA SPECIES Identification by MALDI-TOF For susceptibility, refer to previous culture. Results reported to the appropriate Health Department Report Status FINAL 12/12/2023 Normal [facility] Comment on above: Performed By: #### C P, CDP #### [facility] [address] [place] [address] Director Validation: Sravani Gordon MD #### LIPR #### [address] [address] Director Validation: Robi Veliz MD Cult,Bloodon 12-12-2023 Cult,Blood Specimen Description .BLOOD 20ML Special Requests LAC by KB in ER Culture POSITIVE Blood Culture DIRECT GRAM STAIN FROM BOTTLE: GRAM NEGATIVE RODS Salmonella species Detected: Methodology- Polymerase Chain Reaction (PCR) Results reported to the appropriate Health Department SALMONELLA SPECIES Results reported to the appropriate Health Department (NOTE) Direct Gram Stain from bottle result called to and read back by:TEE COSTELLO RN [facility] 12/10/23 1520 BY AMIE Report Status FINAL 12/12/2023 SUSCEPTIBILITY Organism SALMONELLA SPECIES Method PÉREZ GREEN Ciprofloxacin SUSCEPTIBLE SUSCEPTIBILITY Organism SALMONELLA SPECIES Method ELLEN Ampicillin <=2 SUSCEPTIBLE Levofloxacin <=0.12 SUSCEPTIBLE Trimethoprim/Sulfa <=20 SUSCEPTIBLE Susceptible [facility] Comment on above: Performed By: #### B C #### [facility] [address] [place] [address] Director Validation: Robi Veliz MD [facility] [address] [place] [address] Director Validation: Sravani Gordon MD Culture, Blood 2on Interpretation and review of laboratory results Abnormal [facility] Microorganism identified Cx Nom (Unsp spec) POSITIVE BLOOD CULTURE, RN NOTIFIED: TEE COSTELLO RN, [facility] 12/10/23, 1645, DJR RB [facility] Microorganism identified Cx Nom (Unsp spec) Negative [facility] Microorganism identified Cx Nom (Unsp spec) SALMONELLA SPECIES Identification by MALDI-TOF For susceptibility, refer to previous culture. Results reported to the appropriate Health Department Critically abnormal [facility] Service comment (Unsp spec) [Interp] BCAE ONLY RT WRIST by RW in ER [facility] Specimen Description .BLOOD 3ML [facility] Magnesiumon 12-12-2023 Magnesium [Mass/Vol] 1.8 mg/dL 1.6 - 2.4 mg/dL [facility] Magnesium [Mass/Vol] 1.8 mg/dL Normal 1.6-2.4 [facility] Comment on above: Performed By: #### C P, CDP #### [facility] [address] [place] [address] Director Validation: Sravani Gordon MD #### LIPR #### [facility] [address] [place] [address] Director Validation: Robi Veliz MD CBC auto differentialon 11-24 Basophils (Bld) [#/Vol] 0.04 10*3/uL [facility] Basophils/100 WBC (Bld) 1 % 0 - 2 % [facility] Eosinophils (Bld) [#/Vol] 0.00 10*3/uL [facility] Eosinophils/100 WBC (Bld) 0 % Low 1 - 4 % [facility] Erythrocyte distribution width (RBC) [Ratio] 14.1 % 11.8 - 14.4 % [facility] Hematocrit (Bld) [Volume fraction] 32.1 % Low 36.3 - 47.1 % [facility] Hemoglobin (Bld) [Mass/Vol] 11.0 g/dL Low 11.9 - 15.1 g/dL [facility] Immature granulocytes (Bld) [#/Vol] 0.04 10*3/uL [facility] Immature granulocytes/100 WBC (Bld) 1 % High 0 [facility] Interpretation and review of laboratory results Abnormal [facility] Lymphocytes/100 WBC (Bld) 11 % Low 24 - 43 % [facility] Lymphocytes/100 WBC (Bld) 0.44 % Low [facility] MCH (RBC) [Entitic mass] 31.6 pg 25.2 - 33.5 pg [facility] MCHC (RBC) [Mass/Vol] 34.3 g/dL 28.4 - 34.8 g/ dL [facility] MCV (RBC) [Entitic vol] 92.2 fL 82.6 - 102.9 fL [facility] Monocytes/100 WBC (Bld) 12 % 3 - 12 % [facility] Monocytes/100 WBC (Bld) 0.48 % [facility] Morphology Wicho (Bld) [Interp] Normal [facility] Neutrophils/100 WBC (Bld) 75 % High 36 - 65 % [facility] Nucleated RBC/100 WBC (Bld) [Ratio] 0.0 % 0.0 per 100 WBC [facility] Platelet mean volume (Bld) [Entitic vol] 10.0 fL 8.1 - 13.5 fL [facility] Platelets (Bld) [#/Vol] 189 10*3/uL [facility] RBC (Bld) [#/Vol] 3.48 10*6/uL Low 3.95 - 5.11 m/uL [facility] Segmented neutrophils/100 WBC (Bld) 3.00 % [facility] WBC other (Bld) [#/Vol] 4.0 [facility] CBC with Diffon 12-11-2023 Abs. Basophil 0.04 k/uL Normal 0.0-0.2 [facility] Comment on above: Performed By: #### C P, CDP #### [address] [place] [phone] Director Validation: Sravani Gordon MD #### LIPR #### [address] [address] Director Validation: Robi Veliz MD Abs.Imm.Granulocyte 0.04 k/uL Normal 0.00-0.30 [facility] Comment on above: Performed By: #### C P, CDP #### [address] [place] [phone] Director Validation: Sravani Gordon MD #### LIPR #### [address] [address] Director Validation: Robi Veliz MD Abs.Neutrophil (Seg) 3.00 k/uL Normal 1.50-8.10 [facility] Comment on above: Performed By: #### C P, CDP #### [address] [place] [address] Director Validation: Sravani Gordon MD #### LIPR #### [address] [address] Director Validation: Robi Veliz MD Basophils/100 WBC (Bld) 1 % Normal 0-2 [facility] Comment on above: Performed By: #### C P, CDP #### [facility] [address] [place] [address] [address]. [place] [phone] Director Validation: Sravani Gordon MD #### LIPR #### [address] [address] Director Validation: Robi Veliz MD Eosinophils (Bld) [#/Vol] 0.00 10*3/uL Normal 0.00-0.44 [facility] Comment on above: Performed By: #### C P, CDP #### [address] [place] [phone] Director Validation: Sravani Gordon MD #### LIPR #### [address] [address] Director Validation: Robi Veliz MD Eosinophils/100 WBC (Bld) 0 % Low 1-4 [facility] Comment on above: Performed By: #### C P, CDP #### [address] [place] [phone] Director Validation: Sravani Gordon MD #### LIPR #### [address] [address] Director Validation: Robi Veliz MD Immature granulocytes/100 WBC (Bld) 1 % High 0 [facility] Comment on above: Performed By: #### C P, CDP #### [address] [place] [address] Director Validation: Sravani Gordon MD #### LIPR #### [address] [place] [address] Director Validation: Robi Veliz MD Lymphocytes (Bld) [#/Vol] 0.44 10*3/uL Low 1.10-3.70 [facility] Comment on above: Performed By: #### C P, CDP #### [facility] [address] [place], [place] [phone] Director Validation: Sravani Gordon MD #### LIPR #### [address] [address] Director Validation: Robi Veliz MD Lymphocytes/100 WBC (Bld) 11 % Low 24-43 [facility] Comment on above: Performed By: #### C P, CDP #### [facility] [address] [place] [address] [place] [phone] Director Validation: Sravani Gordon MD #### LIPR #### [address] [address] Director Validation: Robi Veliz MD Monocytes (Bld) [#/Vol] 0.48 10*3/uL Normal 0.10-1.20 [facility] Comment on above: Performed By: #### C P, CDP #### [facility] [address] [place] [address] [place] [phone] Director Validation: Sravani Gordon MD #### LIPR #### [address] [address] Director Validation: Robi Veliz MD Monocytes/100 WBC (Bld) 12 % Normal 3-12 [facility] Comment on above: Performed By: #### C P, CDP #### [facility] [address] [place] [address] [place], [place] [id number] Director Validation: Sravani Gordon MD #### LIPR #### [address] [address] Director Validation: Robi Veliz MD Morphology Wicho (Bld) [Interp] Normal Normal [facility] Comment on above: Performed By: #### C P, CDP #### [facility] [address] [place], [place] [phone] Director Validation: Sravani Gordon MD #### LIPR #### [address] [address] Director Validation: Robi Veliz MD Neutrophil (Seg) 75 % High 36-65 [facility] Comment on above: Performed By: #### C P, CDP #### [address] [place], [place] [phone] Director Validation: Sravani Gordon MD #### LIPR #### [address] [address] Director Validation: Robi Veliz MD Erythrocyte distribution width (RBC) [Ratio] 14.1 % Normal 11.8-14.4 [facility] Comment on above: Performed By: #### C P, CDP #### [address] [place], [place] [phone] Director Validation: Sravani Gordon MD #### LIPR #### [address] [address] Director Validation: Robi Veliz MD Hematocrit (Bld) [Volume fraction] 32.1 % Low 36.3-47.1 [facility] Comment on above: Performed By: #### C P, CDP #### [address] [place], [place] [id number] Director Validation: Sravani Gordon MD #### LIPR #### [address] [address] Director Validation: Robi Veliz MD Hemoglobin (Bld) [Mass/Vol] 11.0 g/dL Low 11.9-15.1 [facility] Comment on above: Performed By: #### C P, CDP #### [facility] [address] [place] [address] Dr. [place], [place] [phone] Director Validation: Sravani Gordon MD #### LIPR #### [address] [address] Director Validation: Robi Veliz MD MCH (RBC) [Entitic mass] 31.6 pg Normal 25.2-33.5 [facility] Comment on above: Performed By: #### C P, CDP #### [facility] [address] [place] [address] Dr. [place] [phone] Director Validation: Sravani Gordon MD #### LIPR #### [address] [address] Director Validation: Robi Veliz MD MCHC (RBC) [Mass/Vol] 34.3 g/dL Normal 28.4-34.8 [facility] Comment on above: Performed By: #### C P, CDP #### [address] [place] [phone] Director Validation: Sravani Gordon MD #### LIPR #### [address] [address] Director Validation: Robi Veliz MD MCV (RBC) [Entitic vol] 92.2 fL Normal 82.6-102.9 [facility] Comment on above: Performed By: #### C P, CDP #### [facility] [address] [place] [address] [place]. [place], [place] [phone] Director Validation: Sravani Gordon MD #### LIPR #### [address] [address] Director Validation: Robi Veliz MD NRBC Automated 0.0 per 100 WBC Normal 0.0 [facility] Comment on above: Performed By: #### C P, CDP #### [facility] [address] [place], [place] [phone] Director Validation: Sravani Gordon MD #### LIPR #### [address] [place], [place] [id number] Director Validation: Robi Veliz MD Platelet mean volume (Bld) [Entitic vol] 10.0 fL Normal 8.1-13.5 [facility] Comment on above: Performed By: #### C P, CDP #### [facility] [address] [place], [place] [id number] Director Validation: Sravani Gordon MD #### LIPR #### [address] [phone] Director Validation: Robi Veliz MD Platelets (Bld) [#/Vol] 189 10*3/uL Normal 138-453 [facility] Comment on above: Performed By: #### C P, CDP #### [facility] [address] [place], [place] [phone] Director Validation: Sravani Gordon MD #### LIPR #### [address] [address] Director Validation: Robi Veliz MD RBC (Bld) [#/Vol] 3.48 10*6/uL Low 3.95-5.11 [facility] Comment on above: Performed By: #### C P, CDP #### [facility] [address] [place], [place] [phone] Director Validation: Sravani Gordon MD #### LIPR #### [address] [address] Director Validation: Robi Veliz MD WBC (Bld) [#/Vol] 4.0 10*3/uL Normal 3.5-11.3 [facility] Comment on above: Performed By: #### C P, CDP #### [facility] [address] [place], [place] [id number] Director Validation: Sravani Gordon MD #### LIPR #### [address] [address] Director Validation: Robi Veliz MD Comp Metabolic Pr/rfx MGon 0 - Albumin [Mass/Vol] 3.0 g/dL Low 3.5-5.2 [facility] Comment on above: Performed By: #### C P, CDP #### [facility] [address] [place], [place] 6565083 Director Validation: Sravani Gordon MD #### LIPR #### [address] [address] Director Validation: Robi Veliz MD Albumin/Glob Ratio 1.3 Normal 1.0-2.5 [facility] Comment on above: Performed By: #### C P, CDP #### [facility] [address] [place], [place] [id number] Director Validation: Sravani Gordon MD #### LIPR #### [address] [address] Director Validation: Robi Veliz MD Alkaline Phos 73 U/L Normal 35-104 [facility] Comment on above: Performed By: #### C P, CDP #### [facility] [address] [place] [address] Director Validation: Sravani Gordon MD #### LIPR #### [address] [address] Director Validation: Robi Veliz MD ALT [Catalytic activity/Vol] 16 U/L Normal 10-35 [facility] Comment on above: Performed By: #### C P, CDP #### [facility] [address] [place] [address] [place] [place], [place] [phone] Director Validation: Sravani Gordon MD #### LIPR #### [address] [place] [address] Director Validation: Robi Veliz MD Anion gap [Moles/Vol] 11 mmol/L Normal 9-16 [facility] Comment on above: Performed By: #### C P, CDP #### [facility] [address] [place], [place] [phone] Director Validation: Sravani Gordon MD #### LIPR #### [address] [address] Director Validation: Robi Veliz MD AST [Catalytic activity/Vol] 29 U/L Normal 10-35 [facility] Comment on above: Performed By: #### C P, CDP #### [address] [place] [address] Director Validation: Sravani Gordon MD #### LIPR #### [address] [address] Director Validation: Robi Veliz MD Bilirubin [Mass/Vol] mg/dL Normal 0.00-1.20 [facility] Comment on above: Performed By: #### C P, CDP #### [address] [place], [place] [phone] Director Validation: Sravani Gordon MD #### LIPR #### [address] [address] Director Validation: Robi Veliz MD BUN/CRE Ratio 15 Normal 9-20 [facility] Comment on above: Performed By: #### C P, CDP #### [address] [place], [place] [phone] Director Validation: Sravani Gordon MD #### LIPR #### [address] [place] [address] Director Validation: Robi Veliz MD Calcium [Mass/Vol] 7.8 mg/dL Low 8.6-10.4 [facility] Comment on above: Performed By: #### C P, CDP #### [facility] [address] [place], [place] [phone] Director Validation: Sravani Gordon MD #### LIPR #### [address] [address] Director Validation: Robi Veliz MD Chloride [Moles/Vol] 112 mmol/L High 98-107 [facility] Comment on above: Performed By: #### C P, CDP #### [facility] [address] [place] [address] [place] [place], [place] [phone] Director Validation: Sravani Gordon MD #### LIPR #### [address] [address] Director Validation: Robi Veliz MD CO2 [Moles/Vol] 15 mmol/L Low 20-31 [facility] Comment on above: Performed By: #### C P, CDP #### [facility] [address] [place] [address] [place] [place], [place] [phone] Director Validation: Sravani Gordon MD #### LIPR #### [address] [address] Director Validation: Robi Veliz MD Creatinine [Mass/Vol] 1.0 mg/dL High 0.50-0.90 [facility] Comment on above: Performed By: #### C P, CDP #### [facility] [address] [place] [address] [place], [place] [phone] Director Validation: Sravani Gordon MD #### LIPR #### [address] [address] Director Validation: Robi Veliz MD GFR/1.73 sq M.predicted among non-blacks MDRD (S/P/Bld) [Vol rate/Area] 60 mL/min/{1.73_m2} Low >60 [facility] Comment on above: Result Comment: These [...] renal tubular secretion. Performed By: #### C P, CDP #### [facility] [address] [place] [address] [place] [address] Director Validation: Sravani Gordon MD #### LIPR #### [address] [id number] Director Validation: Robi Veliz MD Glucose [Mass/Vol] 107 mg/dL High 74-99 [facility] Comment on above: Performed By: #### C P, CDP #### [facility] [address] [place] [address] [place] [address] Director Validation: Sravani Gordon MD #### LIPR #### [address] [id number] Director Validation: Robi Veliz MD Potassium [Moles/Vol] 3.5 mmol/L Low 3.7-5.3 [facility] Comment on above: Performed By: #### C P, CDP #### [facility] [address] [place] [address] [place] [address] Director Validation: Sravani Gordon MD #### LIPR #### [address] [id number] Director Validation: Robi Veliz MD Protein [Mass/Vol] 5.2 g/dL Low 6.6-8.7 [facility] Comment on above: Performed By: #### C P, CDP #### [facility] [address] [place], [place] [phone] Director Validation: Sravani Gordon MD #### LIPR #### [facility] [address] [place], [place] [phone] Director Validation: Robi Veliz MD Sodium [Moles/Vol] 138 mmol/L Normal 136-145 [facility] Comment on above: Performed By: #### C P, CDP #### [facility] [address] [place], [place] [phone] Director Validation: Sravani Gordon MD #### LIPR #### [facility] [address] [place], [place] [phone] Director Validation: Robi Veliz MD Urea nitrogen [Mass/Vol] 15 mg/dL Normal 8-23 [facility] Comment on above: Performed By: #### C P, CDP #### [facility] [address] [place], [place] [phone] Director Validation: Sravani Gordon MD #### LIPR #### [place] [address] [place] [address] Director Validation: Robi Veliz MD Comprehensive Metabolic Pane l w/ Reflex to MGon 12-11-2023 Albumin [Mass/Vol] 3.0 g/dL Low 3.5 - 5.2 g/dL [facility] Albumin/Globulin [Mass ratio] 1.3 {ratio} 1.0 - 2.5 [facility] ALP [Catalytic activity/Vol] 73 U/L 35 - 104 U/L [facility] ALT [Catalytic activity/Vol] 16 U/L 10 - 35 U/L [facility] Anion gap [Moles/Vol] 11 mmol/L 9 - 16 mmol/L [facility] AST [Catalytic activity/Vol] 29 U/L 10 - 35 U/L [facility] Bilirubin [Mass/Vol] mg/dL 0.00 - 1.20 mg/ dL [facility] Calcium [Mass/Vol] 7.8 mg/dL Low 8.6 - 10.4 mg/dL [facility] Chloride [Moles/Vol] 112 mmol/L High 98 - 107 mmol/L [facility] CO2 [Moles/Vol] 15 mmol/L Low 20 - 31 mmol/L [facility] Creatinine [Mass/Vol] 1.0 mg/dL High 0.50 - 0.90 mg /dL [facility] Est, Glom Filt Rate 60 Low - PINF [facility] Comment on above: These results are not [...] that affects renal tubular secretion. Glucose [Mass/Vol] 107 mg/dL High 74 - 99 mg/dL [facility] Interpretation and review of laboratory results Abnormal [facility] Potassium [Moles/Vol] 3.5 mmol/L Low 3.7 - 5.3 mmol /L [facility] Protein [Mass/Vol] 5.2 g/dL Low 6.6 - 8.7 g/dL [facility] Sodium [Moles/Vol] 138 mmol/L 136 - 145 mmol/L [facility] Urea nitrogen [Mass/Vol] 15 mg/dL 8 - 23 mg/dL [facility] Urea nitrogen/Creatinine [Mass ratio] 15 mg/mg 9 - 20 [facility] Cult,Urineon 12-11-2023 Cult,Urine Specimen Description .URINE STRAIGHT CATH Culture NO GROWTH Report Status FINAL 12/11/2023 Normal [facility] Comment on above: Performed By: #### C P, CDP #### [facility] [address] [place] [address] Director Validation: Sravani Gordon MD #### LIPR #### [facility] [address] [place] [address] Director Validation: Robi Veliz MD Culture, Urineon 12-11-2023 Microorganism identified Cx Nom (Unsp spec) NO GROWTH [facility] Specimen Description .URINE STRAIGHT CATH [facility] EKG Rhythm Stripon [facility] Gastrointestinal Panel, Mole cularon 12-11-2023 Campylobacter sp DNA HAWA+probe Nom (Unsp spec) NEGATIVE: No Campylobacter spp. (jejuni or coli) DNA Detected NEGATIVE: No Campylobacter spp. (jejuni or coli) DNA Detecte [facility] E. coli enterotoxigenic eltA+estB genes HAWA+probe Ql (Stl) NEGATIVE: No Enterotoxigenic E. coli (ETEC) Heat-labile and heat-stable (LT/ST) DNA Detected NEGATIVE: No Enterotoxigenic E. coli (ETEC) Heat-labile and [facility] Interpretation and review of laboratory results Abnormal [facility] P. shigelloides DNA HAWA+probe Ql (Stl) Negative NEGATIVE: No Plesionomas shigelloides DNA Detected [facility] Salmonella sp DNA HAWA+probe Ql (Unsp spec) Positive Abnormal NEGATIVE: No Salmonella spp. DNA Detected [facility] Comment on above: Results reported to the appropriate Health Department Shiga toxin stx gene HAWA+probe Nom (Unsp spec) Negative NEGATIVE: No Shiga toxin-producing gene(s) Detected [facility] Shigella sp DNA HAWA+probe Ql (Unsp spec) Negative NEGATIVE: No Shigella spp. / EIEC DNA Detected [facility] Specimen Description .FECES [facility] V. cholerae+parahaemolyt icus rfbL+trkH+tnaA genes HAWA+probe Ql (Stl) NEGATIVE: No Vibrio (V. vulnificus, V, parahaemolyticus and V. cholerae) DNA Detected NEGATIVE: No Vibrio (V. vulnificus, V, parahaemolyticus and [facility] Y. enterocolitica recN gene HAWA+probe Ql (Stl) Negative NEGATIVE: No Yersinia enterocolitica DNA Detected [facility] Lactic Acidon 12-11-2023 Lactate (BldV) [Moles/Vol] 1.4 mmol/L 0.5 - 2.2 mmol/L [facility] Lactate [Moles/Vol] 1.4 mmol/L Normal 0.5-2.2 [facility] Comment on above: Performed By: #### L ACTIC #### [facility] [address] [place] [address] Director Validation: Sravani Gordon MD Magnesiumon 12-11-2023 Magnesium [Mass/Vol] 2.3 mg/dL 1.6 - 2.4 mg/dL [facility] Magnesium [Mass/Vol] 2.3 mg/dL Normal 1.6-2.4 [facility] Comment on above: Performed By: #### C P, CDP #### [facility] [address] [place] [address] Director Validation: Sravani Gordon MD #### LIPR #### [address] [id number] Director Validation: Robi Veliz MD Stool PCR Batteryon 12-11-19 Campylobacter sp PCR NEGATIVE: No Campylobacter spp. (jejuni or coli) DNA Detected Normal [facility] Comment on above: Performed By: #### C P, CDP #### [facility] [address] [place] [address] Director Validation: Sravani Gordon MD #### LIPR #### [id number] [place], [place] [id number] Director Validation: Robi Veliz MD E coli enterotox PCR NEGATIVE: No Enterotoxigenic E. coli (ETEC) Heat-labile and heat-stable (LT/ST) Normal [facility] Comment on above: Result Comment: DNA Detected Performed By: #### C P, CDP #### [facility] [address] [place] [address] Director Validation: Sravani Gordon MD #### LIPR #### [facility] [address] [place] [address] Director Validation: Robi Veliz MD Plesiomonas sp PCR Negative Normal [facility] Comment on above: Performed By: #### C P, CDP #### [facility] [address] [place] [address] Director Validation: Sravani Gordon MD #### LIPR #### [address] [address] Director Validation: Robi Veliz MD Salmonella sp PCR Positive Abnormal [facility]NEG [facility] Comment on above: Result Comment: Resu lts reported to the appropriate Health Department Performed By: #### C P, CDP #### [address] [place] [address] Director Validation: Sravani Gordon MD #### LIPR #### [address] [address] Director Validation: Robi Veliz MD Shigatoxin gene PCR Negative [facility] Comment on above: Performed By: #### C P, CDP #### [address] [place] [address] Director Validation: Sravani Gordon MD #### LIPR #### [address] [address] Director Validation: Robi Veliz MD Shigella sp PCR Negative Normal [facility] Comment on above: Performed By: #### C P, CDP #### [facility] [address] [place] [address] Director Validation: Sravani Gordon MD #### LIPR #### [address] [id number] Director Validation: Robi Veliz MD Vibrio sp PCR NEGATIVE: No Vibrio (V. vulnificus, V, parahaemolyticus and V. cholerae) DNA Normal [facility] Comment on above: Result Comment: Dete cted Performed By: #### C P, CDP #### [facility] [address] [place], [place] [id number] Director Validation: Sravani Gordon MD #### LIPR #### [facility] [address] [place], [place] [id number] Director Validation: Robi Veliz MD Yersinia gene PCR Negative Normal [facility] Comment on above: Performed By: #### C P, CDP #### [facility] [address] [place] [address] [place] [address] Director Validation: Sravani Gordon MD #### LIPR #### [facility] [address] [place] [address] Director Validation: Robi Veliz MD C DIFF Toxin/Antigenon 12-09 C. difficile glutamate dehydrogenase and toxins A+B IA.rapid Ql (Stl) Negative NEGATIVE [facility] Comment on above: No C. difficile anti gen and Toxin Detected. Specimen Description .FECES [facility] C diff Ag + Toxinon 12-10-19 24 C diff Ag + Toxin Negative Normal NEG [facility] Comment on above: Result Comment: No C . difficile antigen and Toxin Detected. Performed By: #### C DIFQ #### [facility] [address] [place] [address] Director Validation: Sravani Gordon MD CBC auto differentialon 11-24 Basophils (Bld) [#/Vol] 0.00 10*3/uL [facility] Basophils/100 WBC (Bld) 0 % 0 - 2 % [facility] Eosinophils (Bld) [#/Vol] 0.00 10*3/uL [facility] Eosinophils/100 WBC (Bld) 0 % Low 1 - 4 % [facility] Erythrocyte distribution width (RBC) [Ratio] 14.1 % 11.8 - 14.4 % [facility] Hematocrit (Bld) [Volume fraction] 32.6 % Low 36.3 - 47.1 % [facility] Hemoglobin (Bld) [Mass/Vol] 10.6 g/dL Low 11.9 - 15.1 g/dL [facility] Immature granulocytes (Bld) [#/Vol] 0.00 10*3/uL [facility] Immature granulocytes/100 WBC (Bld) 0 % 0 [facility] Interpretation and review of laboratory results Abnormal [facility] Lymphocytes/100 WBC (Bld) 11 % Low 24 - 43 % [facility] Lymphocytes/100 WBC (Bld) 0.30 % Low [facility] MCH (RBC) [Entitic mass] 30.7 pg 25.2 - 33.5 pg [facility] MCHC (RBC) [Mass/Vol] 32.5 g/dL 28.4 - 34.8 g/ dL [facility] MCV (RBC) [Entitic vol] 94.5 fL 82.6 - 102.9 fL [facility] Monocytes/100 WBC (Bld) 2 % Low 3 - 12 % [facility] Monocytes/100 WBC (Bld) 0.05 % Low [facility] Morphology Wicho (Bld) [Interp] Normal [facility] Neutrophils/100 WBC (Bld) 87 % High 36 - 65 % [facility] Nucleated RBC/100 WBC (Bld) [Ratio] 0.0 % 0.0 per 100 WBC [facility] Platelet mean volume (Bld) [Entitic vol] 10.5 fL 8.1 - 13.5 fL [facility] Platelets (Bld) [#/Vol] 191 10*3/uL [facility] RBC (Bld) [#/Vol] 3.45 10*6/uL Low 3.95 - 5.11 m/uL [facility] Segmented neutrophils/100 WBC (Bld) 2.35 % [facility] WBC other (Bld) [#/Vol] 2.7 Low [facility] CBC with Diffon 12-10-2023 Abs. Basophil 0.00 k/uL Normal 0.0-0.2 [facility] Comment on above: Performed By: #### C P, CDP #### [facility] [address] [place], [place] [id number] Director Validation: Sravani Gordon MD #### LIPR #### [address] [id number] Director Validation: Robi Veliz MD Abs.Imm.Granulocyte 0.00 k/uL Normal 0.00-0.30 [facility] Comment on above: Performed By: #### C P, CDP #### [facility] [address] [place], [place] [id number] Director Validation: Sravani Gordon MD #### LIPR #### [address] [address] Director Validation: Robi Veliz MD Abs.Neutrophil (Seg) 2.35 k/uL Normal 1.50-8.10 [facility] Comment on above: Performed By: #### C P, CDP #### [facility] [address] [place], [place] [id number] Director Validation: Sravani Gordon MD #### LIPR #### [address] [address] Director Validation: Robi Veliz MD Basophils/100 WBC (Bld) 0 % Normal 0-2 [facility] Comment on above: Performed By: #### C P, CDP #### [facility] [address] [place], [place] [id number] Director Validation: Sravani Gordon MD #### LIPR #### [address] [address] Director Validation: Robi Veliz MD Eosinophils (Bld) [#/Vol] 0.00 10*3/uL Normal 0.00-0.44 [facility] Comment on above: Performed By: #### C P, CDP #### [facility] [address] [place] [address] [place] [id number] Director Validation: Sravani Gordon MD #### LIPR #### [address] [address] Director Validation: Robi Veliz MD Eosinophils/100 WBC (Bld) 0 % Low 1-4 [facility] Comment on above: Performed By: #### C P, CDP #### [address] [place] [id number] ( Director Validation: Sravani Gordon MD #### LIPR #### [place] [address] Director Validation: Robi Veliz MD Immature granulocytes/100 WBC (Bld) 0 % Normal 0 [facility] Comment on above: Performed By: #### C P, CDP #### [address] [place] [id number] Director Validation: Sravani Gordon MD #### LIPR #### [place] [address] Director Validation: Robi Veliz MD Lymphocytes (Bld) [#/Vol] 0.30 10*3/uL Low 1.10-3.70 [facility] Comment on above: Performed By: #### C P, CDP #### [address] [place] [phone] Director Validation: Sravani Gordon MD #### LIPR #### [address] [address] Director Validation: Robi Veliz MD Lymphocytes/100 WBC (Bld) 11 % Low 24-43 [facility] Comment on above: Performed By: #### C P, CDP #### [facility] [address] [place] [address] Director Validation: Sravani Gordon MD #### LIPR #### [address] [address] Director Validation: Robi Veliz MD Monocytes (Bld) [#/Vol] 0.05 10*3/uL Low 0.10-1.20 [facility] Comment on above: Performed By: #### C P, CDP #### [facility] [address] [place] [address] Director Validation: Sravani Gordon MD #### LIPR #### [address] [address] Director Validation: Robi Veliz MD Monocytes/100 WBC (Bld) 2 % Low 3-12 [facility] Comment on above: Performed By: #### C P, CDP #### [facility] [address] [place] [address] Director Validation: Sravani Gordon MD #### LIPR #### [address] [address] Director Validation: Robi Veliz MD Morphology Wicho (Bld) [Interp] Normal Normal [facility] Comment on above: Performed By: #### C P, CDP #### [facility] [address] [place] [address] Director Validation: Sravani Gordon MD #### LIPR #### [address] [address] Director Validation: Robi Veliz MD Neutrophil (Seg) 87 % High 36-65 [facility] Comment on above: Performed By: #### C P, CDP #### [address] [place], [place] [id number] Director Validation: Sravani Gordon MD #### LIPR #### [address] [id number] Director Validation: Robi Veliz MD Erythrocyte distribution width (RBC) [Ratio] 14.1 % Normal 11.8-14.4 [facility] Comment on above: Performed By: #### C P, CDP #### [address] [place] [address] Director Validation: Sravani Gordon MD #### LIPR #### [address] [id number] Director Validation: Robi Veliz MD Hematocrit (Bld) [Volume fraction] 32.6 % Low 36.3-47.1 [facility] Comment on above: Performed By: #### C P, CDP #### [address] [place] 2009683 Director Validation: Sravani Gordon MD #### LIPR #### [address] [id number] Director Validation: Robi Veliz MD Hemoglobin (Bld) [Mass/Vol] 10.6 g/dL Low 11.9-15.1 [facility] Comment on above: Performed By: #### C P, CDP #### [address] [place], [place] [id number] Director Validation: Sravani Gordon MD #### LIPR #### [address] [id number] Director Validation: Robi Veliz MD MCH (RBC) [Entitic mass] 30.7 pg Normal 25.2-33.5 [facility] Comment on above: Performed By: #### C P, CDP #### [address] [place] [address] Director Validation: Sravani Gordon MD #### LIPR #### [address] [id number] Director Validation: Robi Veliz MD MCHC (RBC) [Mass/Vol] 32.5 g/dL Normal 28.4-34.8 [facility] Comment on above: Performed By: #### C P, CDP #### [address] [place] [address] Director Validation: Sravani Gordon MD #### LIPR #### [address] [id number] Director Validation: Robi Veliz MD MCV (RBC) [Entitic vol] 94.5 fL Normal 82.6-102.9 [facility] Comment on above: Performed By: #### C P, CDP #### [address] [place] [id number] Director Validation: Sravani Gordon MD #### LIPR #### [address] [id number] Director Validation: Robi Veliz MD NRBC Automated 0.0 per 100 WBC Normal 0.0 [facility] Comment on above: Performed By: #### C P, CDP #### [address] [place] [phone] Director Validation: Sravani Gordon MD #### LIPR #### [address] [id number] Director Validation: Robi Veliz MD Platelet mean volume (Bld) [Entitic vol] 10.5 fL Normal 8.1-13.5 [facility] Comment on above: Performed By: #### C P, CDP #### [address] [place], [place] [id number] Director Validation: Sravani Gordon MD #### LIPR #### [facility] [address] [place], [place] [id number] Director Validation: Robi Veliz MD Platelets (Bld) [#/Vol] 191 10*3/uL Normal 138-453 [facility] Comment on above: Performed By: #### C P, CDP #### [address] [place] [id number] Director Validation: Sravani Gordon MD #### LIPR #### [address] [place], [place] [id number] Director Validation: Robi Veliz MD RBC (Bld) [#/Vol] 3.45 10*6/uL Low 3.95-5.11 [facility] Comment on above: Performed By: #### C P, CDP #### [address] [place] [id number] Director Validation: Sravani Gordon MD #### LIPR #### [address] [place] [address] Director Validation: Robi Veliz MD WBC (Bld) [#/Vol] 2.7 10*3/uL Low 3.5-11.3 [facility] Comment on above: Performed By: #### C P, CDP #### [address] [place] [id number] Director Validation: Sravani Gordon MD #### LIPR #### [address] [place], [place] [id number] Director Validation: Robi Veliz MD CT ABDOMEN PELVIS WO CONTRAS Ton 12-10-2023 CT ABDOMEN PELVIS WO CONTRAST EXAMINATION: CT OF THE ABDOMEN AND PELVIS WITHOUT CONTRAST 12/10/2023 7:17 am TECHNIQUE: CT of the abdomen and pelvis was performed without the administration of intravenous contrast. Multiplanar reformatted images are provided for review. Automated exposure control, iterative reconstruction, and/or weight based adjustment of the mA/kV was utilized to reduce the radiation dose to as low as reasonably achievable. COMPARISON: None. HISTORY: ORDERING SYSTEM PROVIDED HISTORY: Diarrhea, abdominal cramping TECHNOLOGIST PROVIDED HISTORY: Diarrhea, abdominal cramping FINDINGS: Lack of intravenous contrast limits evaluation of the visceral organs. Lower chest: The lung bases are clear. EG junction, stomach and duodenal sweep: Distal antrectomy. Liver: Unremarkable Gallbladder: Unremarkable Biliary tree: Unremarkable Pancreas: Whipple procedure. Spleen: Unremarkable Kidneys and ureters: Left nephrectomy. Adrenal glands: Unremarkable Retroperitoneal structures: Unremarkable Small bowel and colon: Fluid-filled colon suggesting diarrheal state. Appendix: Not seen Urinary bladder: Unremarkable Free fluid/air: None Lymph nodes: No enlarged lymph nodes Osseus structures: No destructive lesion Vasculature: No aneurysm Other: None IMPRESSION: Fluid-filled colon consistent with diarrheal state. Interpreted by: Minor Monroe MD Signed by: Minor Monroe MD 12/10/23 Final result Normal [facility] CT Abdomen and Pelvis WO con traston 12-10-2023 Fluid-filled colon consistent with diarrheal state. RUST RIS CONSOLIDATED EXAMINATION: CT OF THE ABDOMEN AND PELVIS WITHOUT CONTRAST 12/10/2023 7:17 am TECHNIQUE: CT of the abdomen and pelvis was performed without the administration of intravenous contrast. Multiplanar reformatted images are provided for review. Automated exposure control, iterative reconstruction, and/or weight based adjustment of the mA/kV was utilized to reduce the radiation dose to as low as reasonably achievable. COMPARISON: None. HISTORY: ORDERING SYSTEM PROVIDED HISTORY: Diarrhea, abdominal cramping TECHNOLOGIST PROVIDED HISTORY: Diarrhea, abdominal cramping FINDINGS: Lack of intravenous contrast limits evaluation of the visceral organs. Lower chest: The lung bases are clear. EG junction, stomach and duodenal sweep: Distal antrectomy. Liver: Unremarkable Gallbladder: Unremarkable Biliary tree: Unremarkable Pancreas: Whipple procedure. Spleen: Unremarkable Kidneys and ureters: Left nephrectomy. Adrenal glands: Unremarkable Retroperitoneal structures: Unremarkable Small bowel and colon: Fluid-filled colon suggesting diarrheal state. Appendix: Not seen Urinary bladder: Unremarkable Free fluid/air: None Lymph nodes: No enlarged lymph nodes Osseus structures: No destructive lesion Vasculature: No aneurysm Other: None RUST RIS CONSOLIDATED Minor Monroe MD - 12/10/2023 EXAMINATION: CT OF THE ABDOMEN AND PELVIS WITHOUT CONTRAST 12/10/2023 7:17 am TECHNIQUE: CT of the abdomen and pelvis was performed without the administration of intravenous contrast. Multiplanar reformatted images are provided for review. Automated exposure control, iterative reconstruction, and/or weight based adjustment of the mA/kV was utilized to reduce the radiation dose to as low as reasonably achievable. COMPARISON: None. HISTORY: ORDERING SYSTEM PROVIDED HISTORY: Diarrhea, abdominal cramping TECHNOLOGIST PROVIDED HISTORY: Diarrhea, abdominal cramping FINDINGS: Lack of intravenous contrast limits evaluation of the visceral organs. Lower chest: The lung bases are clear. EG junction, stomach and duodenal sweep: Distal antrectomy. Liver: Unremarkable Gallbladder: Unremarkable Biliary tree: Unremarkable Pancreas: Whipple procedure. Spleen: Unremarkable Kidneys and ureters: Left nephrectomy. Adrenal glands: Unremarkable Retroperitoneal structures: Unremarkable Small bowel and colon: Fluid-filled colon suggesting diarrheal state. Appendix: Not seen Urinary bladder: Unremarkable Free fluid/air: None Lymph nodes: No enlarged lymph nodes Osseus structures: No destructive lesion Vasculature: No aneurysm Other: None IMPRESSION: Fluid-filled colon consistent with diarrheal state. [facility] Radiology Study observation (narrative) [facility] CT Abdomen and Pelvis WO con trastOrdered By: Minor Monroe on 12-10-2023 [facility] Work Phone: Comp Metabolic Pr/rfx MGon 0 12-10-2023 Albumin [Mass/Vol] 3.0 g/dL Low 3.5-5.2 [facility] Comment on above: Performed By: #### C P, CDP #### [facility] [address] [place] [address] Director Validation: Sravani Gordon MD #### LIPR #### [facility] [address] [address] [place] [id number] Director Validation: Robi Veliz MD Albumin/Glob Ratio 1.5 Normal 1.0-2.5 [facility] Comment on above: Performed By: #### C P, CDP #### [facility] [address] [place], [place] [id number] Director Validation: Sravani Gordon MD #### LIPR #### [facility] [address] [place] [address] Director Validation: Robi Veliz MD Alkaline Phos 79 U/L Normal 35-104 [facility] Comment on above: Performed By: #### C P, CDP #### [address] [place], [place] [id number] Director Validation: Sravani Gordon MD #### LIPR #### [address] [address] Director Validation: Robi Veliz MD ALT [Catalytic activity/Vol] 12 U/L Normal 10-35 [facility] Comment on above: Performed By: #### C P, CDP #### [address] [place] [address] Director Validation: Sravani Gordon MD #### LIPR #### [address] [address] Director Validation: Robi Veliz MD Anion gap [Moles/Vol] 12 mmol/L Normal 9-16 [facility] Comment on above: Performed By: #### C P, CDP #### [address] [place], [place] [id number] Director Validation: Sravani Gordon MD #### LIPR #### [address] [address] Director Validation: Robi Veliz MD AST [Catalytic activity/Vol] 17 U/L Normal 10-35 [facility] Comment on above: Performed By: #### C P, CDP #### [address] [place], [place] [id number] Director Validation: Sravani Gordon MD #### LIPR #### [address] [address] [place] [address] Director Validation: Robi Veliz MD Bilirubin [Mass/Vol] mg/dL Normal 0.00-1.20 [facility] Comment on above: Performed By: #### C P, CDP #### [facility] [address] [place] [address] [address] [place], [place] [phone] Director Validation: Sravani Gordon MD #### LIPR #### [address] [address] Director Validation: Robi Veliz MD BUN/CRE Ratio 20 Normal 9-20 [facility] Comment on above: Performed By: #### C P, CDP #### [address] [place], [place] [phone] Director Validation: Sravani Gordon MD #### LIPR #### [address] [address] Director Validation: Robi Veliz MD Calcium [Mass/Vol] 7.3 mg/dL Low 8.6-10.4 [facility] Comment on above: Performed By: #### C P, CDP #### [address] [place], [place] [id number] Director Validation: Srvaani Gordon MD #### LIPR #### [address] [address] Director Validation: Robi Veliz MD Chloride [Moles/Vol] 107 mmol/L Normal 98-107 [facility] Comment on above: Performed By: #### C P, CDP #### [address] [place], [place] [id number] Director Validation: Sravani Gordon MD #### LIPR #### [address] [address] Director Validation: Robi Veliz MD CO2 [Moles/Vol] 16 mmol/L Low 20-31 [facility] Comment on above: Performed By: #### C P, CDP #### [facility] [address] [place] [address] Director Validation: Sravani Gordon MD #### LIPR #### [id number] [place], [place] [id number] Director Validation: Robi Veliz MD Creatinine [Mass/Vol] 1.4 mg/dL High 0.50-0.90 [facility] Comment on above: Performed By: #### C P, CDP #### [facility] [address] [place] [address] Director Validation: Sravani Gordon MD #### LIPR #### [id number] [place], [place] [id number] Director Validation: Robi Veliz MD GFR/1.73 sq M.predicted among non-blacks MDRD (S/P/Bld) [Vol rate/Area] 42 mL/min/{1.73_m2} Low >60 [facility] Comment on above: Result Comment: These [...] renal tubular secretion. Performed By: #### C P, CDP #### [facility] [address] [place] [address] Director Validation: Sravani Gordon MD #### LIPR #### [facility] [address] [place], [place] [id number] Director Validation: Robi Veliz MD Glucose [Mass/Vol] 129 mg/dL High 74-99 [facility] Comment on above: Performed By: #### C P, CDP #### [facility] [address] [place], [place] [id number] Director Validation: Sravani Gordon MD #### LIPR #### [address] [address] Director Validation: Robi Veliz MD Potassium [Moles/Vol] 3.6 mmol/L Low 3.7-5.3 [facility] Comment on above: Performed By: #### C P, CDP #### [facility] [address] [place] [address] Dr. [place], [place] [id number] Director Validation: Sravani Gordon MD #### LIPR #### [address] [address] Director Validation: Robi Veliz MD Protein [Mass/Vol] 5.0 g/dL Low 6.6-8.7 [facility] Comment on above: Performed By: #### C P, CDP #### [address] [place], [place] [id number] Director Validation: Sravani Gordon MD #### LIPR #### [address] [address] Director Validation: Robi Veliz MD Sodium [Moles/Vol] 135 mmol/L Low 136-145 [facility] Comment on above: Performed By: #### C P, CDP #### [address] [place], [place] [id number] Director Validation: Sravani Gordon MD #### LIPR #### [address] [address] Director Validation: Robi Veliz MD Urea nitrogen [Mass/Vol] 28 mg/dL High 8-23 [facility] Comment on above: Performed By: #### C P, CDP #### [facility] [address] [place] [address] [place] [address] Director Validation: Sravani Gordon MD #### LIPR #### [facility] [address] [place] [address] Director Validation: Robi Veliz MD Comprehensive Metabolic Pane l w/ Reflex to MGon 12-10-2023 Albumin [Mass/Vol] 3.0 g/dL Low 3.5 - 5.2 g/dL [facility] Albumin/Globulin [Mass ratio] 1.5 {ratio} 1.0 - 2.5 [facility] ALP [Catalytic activity/Vol] 79 U/L 35 - 104 U/L [facility] ALT [Catalytic activity/Vol] 12 U/L 10 - 35 U/L [facility] Anion gap [Moles/Vol] 12 mmol/L 9 - 16 mmol/L [facility] AST [Catalytic activity/Vol] 17 U/L 10 - 35 U/L [facility] Bilirubin [Mass/Vol] mg/dL 0.00 - 1.20 mg/ dL [facility] Calcium [Mass/Vol] 7.3 mg/dL Low 8.6 - 10.4 mg/dL [facility] Chloride [Moles/Vol] 107 mmol/L 98 - 107 mmol/L [facility] CO2 [Moles/Vol] 16 mmol/L Low 20 - 31 mmol/L [facility] Creatinine [Mass/Vol] 1.4 mg/dL High 0.50 - 0.90 mg /dL [facility] Est, Glom Filt Rate 42 Low - PINF [facility] Comment on above: These results are not [...] that affects renal tubular secretion. Glucose [Mass/Vol] 129 mg/dL High 74 - 99 mg/dL [facility] Interpretation and review of laboratory results Abnormal [facility] Potassium [Moles/Vol] 3.6 mmol/L Low 3.7 - 5.3 mmol /L [facility] Protein [Mass/Vol] 5.0 g/dL Low 6.6 - 8.7 g/dL [facility] Sodium [Moles/Vol] 135 mmol/L Low 136 - 145 mmol/L [facility] Urea nitrogen [Mass/Vol] 28 mg/dL High 8 - 23 mg/dL [facility] Urea nitrogen/Creatinine [Mass ratio] 20 mg/mg 9 - 20 [facility] EKG 12 Leadon 12-10-2023 Atrial Rate 111 BPM [facility] P [place] 27 degrees [facility] P-R Interval 90 ms [facility] Q-T Interval 452 ms [facility] QRS Duration 64 ms [facility] QTc Calculation (Bazett) 614 ms [facility] R [place] -13 degrees [facility] T [place] 88 degrees [facility] Ventricular Rate 111 BPM [facility] Sinus tachycardia with short [place] ST & T wave abnormality, consider lateral ischemia Prolonged QT Abnormal ECG When compared with ECG of 26-FEB-2023 04:32, Nonspecific T wave abnormality now evident in Inferior leads T wave inversion now evident in Lateral leads Confirmed by RUSSELL HOBSON ([id number]) on 12/10/2023 9:42:[address] [facility] Russell Hobson MD - 12/10/2023 Sinus tachycardia with short [place] ST & T wave abnormality, consider lateral ischemia Prolonged QT Abnormal ECG When compared with ECG of 26-FEB-2023 04:32, Nonspecific T wave abnormality now evident in Inferior leads T wave inversion now evident in Lateral leads Confirmed by RUSSELL HOBSON ([id number]) on 12/10/2023 9:42:25 AM [facility] EKG Rhythm Stripon [facility] Lactic Acidon 12-10-2023 Lactate (BldV) [Moles/Vol] 1.7 mmol/L 0.5 - 2.2 mmol/L [facility] Lactate [Moles/Vol] 1.7 mmol/L Normal 0.5-2.2 [facility] Comment on above: Performed By: #### C P, CDP #### [facility] [address] [place], [place] [id number] Director Validation: Sravani Gordon MD #### LIPR #### [address] [id number] Director Validation: Robi Veliz MD Stool PCR Batteryon 12-10-19 24 Specimen Description .FECES Normal [facility] Comment on above: Performed By: #### C P, CDP #### [facility] [address] [place] [id number] Director Validation: Sravani Gordon MD #### LIPR #### [address] [place], [place] [id number] Director Validation: Robi Veliz MD C diff Ag + Toxinon 12-09-19 24 Specimen Description .FECES Normal [facility] Comment on above: Performed By: #### C DIFQ #### [facility] [address] [place] [address] Director Validation: Sravani Gordon MD CBC with Auto Differentialon 12-09-2023 Basophils (Bld) [#/Vol] 0.00 10*3/uL [facility] Basophils/100 WBC (Bld) 0 % 0 - 2 % [facility] Eosinophils (Bld) [#/Vol] 0.00 10*3/uL [facility] Eosinophils/100 WBC (Bld) 0 % Low 1 - 4 % [facility] Erythrocyte distribution width (RBC) [Ratio] 14.1 % 11.8 - 14.4 % [facility] Hematocrit (Bld) [Volume fraction] 39.4 % 36.3 - 47.1 % [facility] Hemoglobin (Bld) [Mass/Vol] 13.1 g/dL 11.9 - 15.1 g/dL [facility] Immature granulocytes (Bld) [#/Vol] 0.05 10*3/uL [facility] Immature granulocytes/100 WBC (Bld) 1 % High 0 [facility] Interpretation and review of laboratory results Abnormal [facility] Lymphocytes/100 WBC (Bld) 9 % Low 24 - 43 % [facility] Lymphocytes/100 WBC (Bld) 0.49 % Low [facility] MCH (RBC) [Entitic mass] 31.3 pg 25.2 - 33.5 pg [facility] MCHC (RBC) [Mass/Vol] 33.2 g/dL 28.4 - 34.8 g/ dL [facility] MCV (RBC) [Entitic vol] 94.3 fL 82.6 - 102.9 fL [facility] Monocytes/100 WBC (Bld) 15 % High 3 - 12 % [facility] Monocytes/100 WBC (Bld) 0.81 % [facility] Morphology Wicho (Bld) [Interp] Normal [facility] Neutrophils/100 WBC (Bld) 75 % High 36 - 65 % [facility] Nucleated RBC/100 WBC (Bld) [Ratio] 0.0 % 0.0 per 100 WBC [facility] Platelet mean volume (Bld) [Entitic vol] 10.5 fL 8.1 - 13.5 fL [facility] Platelets (Bld) [#/Vol] 241 10*3/uL [facility] RBC (Bld) [#/Vol] 4.18 10*6/uL 3.95 - 5.11 m/uL [facility] Segmented neutrophils/100 WBC (Bld) 4.05 % [facility] WBC other (Bld) [#/Vol] 5.4 [facility] CBC with Diffon 12-09-2023 Abs. Basophil 0.00 k/uL Normal 0.0-0.2 [facility] Comment on above: Performed By: #### C P, CDP #### [facility] [address] [place] [address] Director Validation: Sravani Gordon MD #### LIPR #### [place] [address] Director Validation: Robi Veliz MD Abs.Imm.Granulocyte 0.05 k/uL Normal 0.00-0.30 [facility] Comment on above: Performed By: #### C P, CDP #### [address] [place] [id number] ( Director Validation: Sravani Gordon MD #### LIPR #### [place] [address] Director Validation: Robi Veliz MD Abs.Neutrophil (Seg) 4.05 k/uL Normal 1.50-8.10 [facility] Comment on above: Performed By: #### C P, CDP #### [address] [place] [address] Director Validation: Sravani Gordon MD #### LIPR #### [place] [address] Director Validation: Robi Veliz MD Basophils/100 WBC (Bld) 0 % Normal 0-2 [facility] Comment on above: Performed By: #### C P, CDP #### [address] [place] [address] Director Validation: Sravani Gordon MD #### LIPR #### [place] [address] Director Validation: Robi Veliz MD Eosinophils (Bld) [#/Vol] 0.00 10*3/uL Normal 0.00-0.44 [facility] Comment on above: Performed By: #### C P, CDP #### [address] [place] [id number] ( Director Validation: Sravani Gordon MD #### LIPR #### [address] [place] [address] Director Validation: Robi Veliz MD Eosinophils/100 WBC (Bld) 0 % Low 1-4 [facility] Comment on above: Performed By: #### C P, CDP #### [facility] [address] [place], [place] [id number] Director Validation: Sravani Gordon MD #### LIPR #### [address] [address] Director Validation: Robi Veliz MD Immature granulocytes/100 WBC (Bld) 1 % High 0 [facility] Comment on above: Performed By: #### C P, CDP #### [facility] [address] [place], [place] [id number] Director Validation: Sravani Gordon MD #### LIPR #### [address] [address] Director Validation: Robi Veliz MD Lymphocytes (Bld) [#/Vol] 0.49 10*3/uL Low 1.10-3.70 [facility] Comment on above: Performed By: #### C P, CDP #### [facility] [address] [place], [place] [id number] Director Validation: Sravani Gordon MD #### LIPR #### [address] [address] Director Validation: Robi Veliz MD Lymphocytes/100 WBC (Bld) 9 % Low 24-43 [facility] Comment on above: Performed By: #### C P, CDP #### [facility] [address] [place], [place] [id number] Director Validation: Sravani Gordon MD #### LIPR #### [address] [address] Director Validation: Robi Veliz MD Monocytes (Bld) [#/Vol] 0.81 10*3/uL Normal 0.10-1.20 [facility] Comment on above: Performed By: #### C P, CDP #### [facility] [address] [place] [address] Director Validation: Sravani Gordon MD #### LIPR #### [address] [address] Director Validation: Robi Veliz MD Monocytes/100 WBC (Bld) 15 % High 3-12 [facility] Comment on above: Performed By: #### C P, CDP #### [address] [place] [address] Director Validation: Sravani Gordon MD #### LIPR #### [place] [address] Director Validation: Robi Veliz MD Morphology Wicho (Bld) [Interp] Normal Normal [facility] Comment on above: Performed By: #### C P, CDP #### [address] [place] [id number] Director Validation: Sravani Gordon MD #### LIPR #### [place] [address] Director Validation: Robi Veliz MD Neutrophil (Seg) 75 % High 36-65 [facility] Comment on above: Performed By: #### C P, CDP #### [address] [place] [id number] Director Validation: Sravani Gordon MD #### LIPR #### [address] [address] Director Validation: Robi Veliz MD Erythrocyte distribution width (RBC) [Ratio] 14.1 % Normal 11.8-14.4 [facility] Comment on above: Performed By: #### C P, CDP #### [facility] [address] [place], [place] [id number] Director Validation: Sravani Gordon MD #### LIPR #### [address] [id number] Director Validation: Robi Veliz MD Hematocrit (Bld) [Volume fraction] 39.4 % Normal 36.3-47.1 [facility] Comment on above: Performed By: #### C P, CDP #### [facility] [address] [place], [place] [id number] Director Validation: Sravani Gordon MD #### LIPR #### [address] [id number] Director Validation: Robi Veliz MD Hemoglobin (Bld) [Mass/Vol] 13.1 g/dL Normal 11.9-15.1 [facility] Comment on above: Performed By: #### C P, CDP #### [facility] [address] [place] [address] [place]. [place], [place] [id number] Director Validation: Sravani Gordon MD #### LIPR #### [address] [address] Director Validation: Robi Veliz MD MCH (RBC) [Entitic mass] 31.3 pg Normal 25.2-33.5 [facility] Comment on above: Performed By: #### C P, CDP #### [facility] [address] [place], [place] [id number] Director Validation: Sravani Gordon MD #### LIPR #### [address] [address] Director Validation: Robi Veliz MD MCHC (RBC) [Mass/Vol] 33.2 g/dL Normal 28.4-34.8 [facility] Comment on above: Performed By: #### C P, CDP #### [facility] [address] [place], [place] 5000883 Director Validation: Sravani Gordon MD #### LIPR #### [address] [address] Director Validation: Robi Veliz MD MCV (RBC) [Entitic vol] 94.3 fL Normal 82.6-102.9 [facility] Comment on above: Performed By: #### C P, CDP #### [facility] [address] [place], [place] [id number] Director Validation: Sravani Gordon MD #### LIPR #### [address] [address] Director Validation: Robi Veliz MD NRBC Automated 0.0 per 100 WBC Normal 0.0 [facility] Comment on above: Performed By: #### C P, CDP #### [facility] [address] [place], [place] 5355783 Director Validation: Sravani Gordon MD #### LIPR #### [address] [address] Director Validation: Robi Veliz MD Platelet mean volume (Bld) [Entitic vol] 10.5 fL Normal 8.1-13.5 [facility] Comment on above: Performed By: #### C P, CDP #### [facility] [address] [place], [place] [id number] Director Validation: Sravani Gordon MD #### LIPR #### [address] [address] Director Validation: Robi Veliz MD Platelets (Bld) [#/Vol] 241 10*3/uL Normal 138-453 [facility] Comment on above: Performed By: #### C P, CDP #### [address] [place], [place] [id number] Director Validation: Sravani Gordon MD #### LIPR #### [address] [place], [place] [id number] Director Validation: Robi Veliz MD RBC (Bld) [#/Vol] 4.18 10*6/uL Normal 3.95-5.11 [facility] Comment on above: Performed By: #### C P, CDP #### [facility] [address] [place] [address] [place], [place] [id number] Director Validation: Sravani Gordon MD #### LIPR #### [address] [address] Director Validation: Robi Veliz MD WBC (Bld) [#/Vol] 5.4 10*3/uL Normal 3.5-11.3 [facility] Comment on above: Performed By: #### C P, CDP #### [address] [place], [place] [id number] Director Validation: Sravani Gordon MD #### LIPR #### [address] [address] Director Validation: oRbi Veliz MD COVID-19, Rapidon 12-09-2023 SARS-CoV-2 (COVID-19) RdRp gene HAWA+probe Ql (Resp) Not detected Not Detected [facility] Comment on above: Rapid NAAT: The specimen is NEGATIVE for SARS-CoV-2, the novel coronavirus associated with COVID-19. The ID NOW COVID-19 assay is designed to detect the virus that causes COVID-19 in patients with signs and symptoms of infection who are suspected of COVID-19. An individual without symptoms of COVID-19 and who is not shedding SARS-CoV-2 virus would expect to have a negative (not detected) result in this assay. Negative results should be treated as presumptive and, if inconsistent with clinical signs and symptoms or necessary for patient management, should be tested with an alternative molecular assay. Negative results do not preclude SARS-CoV-2 infection and should not be used as the sole basis for patient management decisions. Fact sheet for Healthcare Providers: https://www.fda.gov/media/645264/download Fact sheet for Patients: https://www.fda.gov/media/482921/download Methodology: Isothermal Nucleic Acid Amplification Specimen Description .NASOPHARYNGEAL SWAB [facility] CT CERVICAL SPINE WO CONTRAS Ton 12-09-2023 CT CERVICAL SPINE WO CONTRAST EXAMINATION: CT OF THE CERVICAL SPINE WITHOUT CONTRAST; CT OF THE HEAD WITHOUT CONTRAST 12/09/2023 8:42 pm; 12/09/2023 8:44 pm TECHNIQUE: CT of the cervical spine was performed without the administration of intravenous contrast. Multiplanar reformatted images are provided for review. Automated exposure control, iterative reconstruction, and/or weight based adjustment of the mA/kV was utilized to reduce the radiation dose to as low as reasonably achievable.; CT of the head was performed without the administration of intravenous contrast. Automated exposure control, iterative reconstruction, and/or weight based adjustment of the mA/kV was utilized to reduce the radiation dose to as low as reasonably achievable. COMPARISON: 12/26/2011 HISTORY: ORDERING SYSTEM PROVIDED HISTORY: fall, mid thoracic back pain TECHNOLOGIST PROVIDED HISTORY: fall, mid thoracic back pain Decision Support Exception - unselect if not a suspected or confirmed emergency medical condition->Emergenc y Medical Condition ([place]); ORDERING SYSTEM PROVIDED HISTORY: fall, syncope, LOC TECHNOLOGIST PROVIDED HISTORY: fall, syncope, LOC Decision Support Exception - unselect if not a suspected or confirmed emergency medical condition->Emergenc y Medical Condition ([place]) FINDINGS: BRAIN/VENTRICLES: There is no acute intracranial hemorrhage, mass effect or midline shift. No abnormal extra-axial fluid collection. The iraheta-white differentiation is maintained without evidence of an acute infarct. There is no evidence of hydrocephalus. ORBITS: The visualized portion of the orbits demonstrate no acute abnormality. SINUSES: The visualized paranasal sinuses and mastoid air cells demonstrate no acute abnormality. SOFT TISSUES/SKULL: No acute abnormality of the visualized skull or soft tissues. CERVICAL SPINE BONES/ALIGNMENT: There is no acute fracture or traumatic malalignment. DEGENERATIVE CHANGES: Mild degenerative changes. SOFT TISSUES: There is no prevertebral soft tissue swelling. IMPRESSION: No acute intracranial abnormality. No acute fracture in the cervical spine. Interpreted by: Heber Yung MD Signed by: Heber Yung MD 12/09/23 Final result Normal [facility] CT Cervical spine WO contras ton 12-09-2023 Radiology Study observation (narrative) [facility]ASTon 2023 CT HEAD WO CONTRAST EXAMINATION: CT OF THE CERVICAL SPINE WITHOUT CONTRAST; CT OF THE HEAD WITHOUT CONTRAST 12/09/2023 8:42 pm; 12/09/2023 8:44 pm TECHNIQUE: CT of the cervical spine was performed without the administration of intravenous contrast. Multiplanar reformatted images are provided for review. Automated exposure control, iterative reconstruction, and/or weight based adjustment of the mA/kV was utilized to reduce the radiation dose to as low as reasonably achievable.; CT of the head was performed without the administration of intravenous contrast. Automated exposure control, iterative reconstruction, and/or weight based adjustment of the mA/kV was utilized to reduce the radiation dose to as low as reasonably achievable. COMPARISON: 12/26/2011 HISTORY: ORDERING SYSTEM PROVIDED HISTORY: fall, mid thoracic back pain TECHNOLOGIST PROVIDED HISTORY: fall, mid thoracic back pain Decision Support Exception - unselect if not a suspected or confirmed emergency medical condition->Emergenc y Medical Condition ([place]); ORDERING SYSTEM PROVIDED HISTORY: fall, syncope, LOC TECHNOLOGIST PROVIDED HISTORY: fall, syncope, LOC Decision Support Exception - unselect if not a suspected or confirmed emergency medical condition->Emergenc y Medical Condition ([place]) FINDINGS: BRAIN/VENTRICLES: There is no acute intracranial hemorrhage, mass effect or midline shift. No abnormal extra-axial fluid collection. The iraheta-white differentiation is maintained without evidence of an acute infarct. There is no evidence of hydrocephalus. ORBITS: The visualized portion of the orbits demonstrate no acute abnormality. SINUSES: The visualized paranasal sinuses and mastoid air cells demonstrate no acute abnormality. SOFT TISSUES/SKULL: No acute abnormality of the visualized skull or soft tissues. CERVICAL SPINE BONES/ALIGNMENT: There is no acute fracture or traumatic malalignment. DEGENERATIVE CHANGES: Mild degenerative changes. SOFT TISSUES: There is no prevertebral soft tissue swelling. IMPRESSION: No acute intracranial abnormality. No acute fracture in the cervical spine. Interpreted by: Heber Yung MD Signed by: Heber Yung MD 12/09/23 Final result Normal [facility] CT Head WO contraston 2023 Radiology Study observation (narrative) [facility] CT THORACIC SPINE WO CONTRAS Ton 12-09-2023 CT THORACIC SPINE WO CONTRAST EXAMINATION: CT OF THE THORACIC SPINE WITHOUT CONTRAST 12/09/2023 8:43 pm TECHNIQUE: CT of the thoracic spine was performed without the administration of intravenous contrast. Multiplanar reformatted images are provided for review. Automated exposure control, iterative reconstruction, and/or weight based adjustment of the mA/kV was utilized to reduce the radiation dose to as low as reasonably achievable. COMPARISON: CT chest 03/18/2008 HISTORY: ORDERING SYSTEM PROVIDED HISTORY: fall, mid thoracic back pain TECHNOLOGIST PROVIDED HISTORY: fall, mid thoracic back pain FINDINGS: Mild concavity of the superior endplate of T3 with endplate sclerosis which could represent sequela of an old injury or degenerative change. No acute fracture is seen. No significant spondylolisthesis. Multilevel degenerative changes. Scarring at the lung apices. 4 mm right lower lobe nodule, series 3, image 62. IMPRESSION: No acute bony abnormality is seen in the thoracic spine. Mild concavity of the T3 superior endplate with endplate sclerosis, could represent sequela of prior injury or degenerative change. Mild multilevel degenerative changes. 4 mm right lower lobe nodule. RECOMMENDATIONS: Fleischner Society guidelines for follow-up and management of incidentally detected pulmonary nodules: Nodule size less than 6 mm In a low-risk patient, no routine follow-up. In a high-risk patient, optional CT at 12 months. - Low risk patients include individuals with minimal or absent history of smoking and other known risk factors. - High risk patients include individuals with a history or smoking or known risk factors. Radiology 2017 http://pubs.rsna.or g/doi/full/10.1148/ radiol.[email or web address] Interpreted by: Marbin Aldana MD Signed by: Marbin Aldana MD 12/09/23 Final result Normal [facility] CT Thoracic spine WO contras ton 12-09-2023 No acute bony abnormality is seen in the thoracic spine. Mild concavity of the T3 superior endplate with endplate sclerosis, could represent sequela of prior injury or degenerative change. Mild multilevel degenerative changes. 4 mm right lower lobe nodule. RECOMMENDATIONS: Fleischner Society guidelines for follow-up and management of incidentally detected pulmonary nodules: Nodule size less than 6 mm In a low-risk patient, no routine follow-up. In a high-risk patient, optional CT at 12 months. - Low risk patients include individuals with minimal or absent history of smoking and other known risk factors. - High risk patients include individuals with a history or smoking or known risk factors. Radiology 2017 http://pubs.rsna.or g/doi/full/10.1148/ radiol.7879701921 [facility] EXAMINATION: CT OF THE THORACIC SPINE WITHOUT CONTRAST 12/09/2023 8:43 pm TECHNIQUE: CT of the thoracic spine was performed without the administration of intravenous contrast. Multiplanar reformatted images are provided for review. Automated exposure control, iterative reconstruction, and/or weight based adjustment of the mA/kV was utilized to reduce the radiation dose to as low as reasonably achievable. COMPARISON: CT chest 03/18/2008 HISTORY: ORDERING SYSTEM PROVIDED HISTORY: fall, mid thoracic back pain TECHNOLOGIST PROVIDED HISTORY: fall, mid thoracic back pain FINDINGS: Mild concavity of the superior endplate of T3 with endplate sclerosis which could represent sequela of an old injury or degenerative change. No acute fracture is seen. No significant spondylolisthesis. Multilevel degenerative changes. Scarring at the lung apices. 4 mm right lower lobe nodule, series 3, image 62. [facility] Marbin Aldana MD - 12/09/2023 EXAMINATION: CT OF THE THORACIC SPINE WITHOUT CONTRAST 12/09/2023 8:43 pm TECHNIQUE: CT of the thoracic spine was performed without the administration of intravenous contrast. Multiplanar reformatted images are provided for review. Automated exposure control, iterative reconstruction, and/or weight based adjustment of the mA/kV was utilized to reduce the radiation dose to as low as reasonably achievable. COMPARISON: CT chest 03/18/2008 HISTORY: ORDERING SYSTEM PROVIDED HISTORY: fall, mid thoracic back pain TECHNOLOGIST PROVIDED HISTORY: fall, mid thoracic back pain FINDINGS: Mild concavity of the superior endplate of T3 with endplate sclerosis which could represent sequela of an old injury or degenerative change. No acute fracture is seen. No significant spondylolisthesis. Multilevel degenerative changes. Scarring at the lung apices. 4 mm right lower lobe nodule, series 3, image 62. IMPRESSION: No acute bony abnormality is seen in the thoracic spine. Mild concavity of the T3 superior endplate with endplate sclerosis, could represent sequela of prior injury or degenerative change. Mild multilevel degenerative changes. 4 mm right lower lobe nodule. RECOMMENDATIONS: Fleischner Society guidelines for follow-up and management of incidentally detected pulmonary nodules: Nodule size less than 6 mm In a low-risk patient, no routine follow-up. In a high-risk patient, optional CT at 12 months. - Low risk patients include individuals with minimal or absent history of smoking and other known risk factors. - High risk patients include individuals with a history or smoking or known risk factors. Radiology 2017 http://pubs.rsna.or g/doi/full/10.1148/ radiol.[id number] [facility] Radiology Study observation (narrative) [facility] CT Thoracic spine WO mohan tOrdered By: Marbin Aldana on 12-09-2023 [facility] Work Phone: Comp Metabolic Profon 2023 Albumin [Mass/Vol] 3.8 g/dL Normal 3.5-5.2 [facility] Comment on above: Performed By: #### C P, CDP #### [facility] [address] [place] [address] [place] [address] Director Validation: Sravani Gordon MD #### LIPR #### [facility] [employer] [place] [address] Director Validation: Robi Veliz MD Albumin/Glob Ratio 1.4 Normal 1.0-2.5 [facility] Comment on above: Performed By: #### C P, CDP #### [facility] [address] [place] [address] Director Validation: Sravani Gordon MD #### LIPR #### [facility] [employer] [address] [place], [place] [id number] Director Validation: Robi Veliz MD Alkaline Phos 106 U/L High 35-104 [facility] Comment on above: Performed By: #### C P, CDP #### [address] [place], [place] [id number] Director Validation: Sravani Gordon MD #### LIPR #### [address] [address] Director Validation: Robi Veliz MD ALT [Catalytic activity/Vol] 15 U/L Normal 10-35 [facility] Comment on above: Performed By: #### C P, CDP #### [address] [place] [address] Director Validation: Sravani Gordon MD #### LIPR #### [address] [address] Director Validation: Robi Veliz MD Anion gap [Moles/Vol] 17 mmol/L High 9-16 [facility] Comment on above: Performed By: #### C P, CDP #### [address] [place] [address] Director Validation: Sravani Gordon MD #### LIPR #### [address] [address] Director Validation: Robi Veliz MD AST [Catalytic activity/Vol] 15 U/L Normal 10-35 [facility] Comment on above: Performed By: #### C P, CDP #### [address] [place] [address] Director Validation: Sravani Gordon MD #### LIPR #### [address] [address] Director Validation: Robi Veliz MD Bilirubin [Mass/Vol] 0.3 mg/dL Normal 0.00-1.20 [facility] Comment on above: Performed By: #### C P, CDP #### [address] [place], [place] [id number] Director Validation: Sravani Gordon MD #### LIPR #### [facility] [address] [place] [address] Director Validation: Robi Veliz MD BUN/CRE Ratio 14 Normal 9-20 [facility] Comment on above: Performed By: #### C P, CDP #### [facility] [address] [place], [place] [id number] Director Validation: Sravani Gordon MD #### LIPR #### [address] [address] Director Validation: Robi Veliz MD Calcium [Mass/Vol] 8.9 mg/dL Normal 8.6-10.4 [facility] Comment on above: Performed By: #### C P, CDP #### [facility] [address] [place] [address] [address] [place], [place] [id number] Director Validation: Sravani Gordon MD #### LIPR #### [address] [address] Director Validation: Robi Veliz MD Chloride [Moles/Vol] 100 mmol/L Normal 98-107 [facility] Comment on above: Performed By: #### C P, CDP #### [facility] [address] [place] [address] [place] [address] Director Validation: Sravani Gordon MD #### LIPR #### [address] [address] Director Validation: Robi Veliz MD CO2 [Moles/Vol] 19 mmol/L Low 20-31 [facility] Comment on above: Performed By: #### C P, CDP #### [facility] [address] [place] [address] Director Validation: Sravani Gordon MD #### LIPR #### [address] [place] [address] Director Validation: Robi Veliz MD Creatinine [Mass/Vol] 2.1 mg/dL High 0.50-0.90 [facility] Comment on above: Performed By: #### C P, CDP #### [facility] [address] [place], [place] [id number] Director Validation: Sravani Gordon MD #### LIPR #### [address] [address] Director Validation: Robi Veliz MD GFR/1.73 sq M.predicted among non-blacks MDRD (S/P/Bld) [Vol rate/Area] 25 mL/min/{1.73_m2} Low >60 [facility] Comment on above: Result Comment: These [...] renal tubular secretion. Performed By: #### C P, CDP #### [address] [place], [place] [id number] Director Validation: Sravani Gordon MD #### LIPR #### [address] [address] Director Validation: Robi Veliz MD Glucose [Mass/Vol] 149 mg/dL High 74-99 [facility] Comment on above: Performed By: #### C P, CDP #### [address] [place], [place] [id number] Director Validation: Sravani Gordon MD #### LIPR #### [address] [address] Director Validation: Robi Veliz MD Potassium [Moles/Vol] 3.9 mmol/L Normal 3.7-5.3 [facility] Comment on above: Performed By: #### C P, CDP #### [facility] [address] [place], [place] [id number] Director Validation: Sravani Gordon MD #### LIPR #### [address] [address] Director Validation: Robi Veliz MD Protein [Mass/Vol] 6.5 g/dL Low 6.6-8.7 [facility] Comment on above: Performed By: #### C P, CDP #### [facility] [address] [place] [address] [address] [place], [place] [id number] Director Validation: Sravani Gordon MD #### LIPR #### [address] [place], [place] [id number] Director Validation: Robi Veliz MD Sodium [Moles/Vol] 136 mmol/L Normal 136-145 [facility] Comment on above: Performed By: #### C P, CDP #### [facility] [address] [place] [address] [place] [place], [place] [id number] Director Validation: Sravani Gordon MD #### LIPR #### [address] [address] Director Validation: Robi Veliz MD Urea nitrogen [Mass/Vol] 30 mg/dL High 8-23 [facility] Comment on above: Performed By: #### C P, CDP #### [facility] [address] [place] [address] [place] [place], [place] [id number] Director Validation: Sravani Gordon MD #### LIPR #### [address] [address] Director Validation: Robi Veliz MD Comprehensive Metabolic Pane mauricio 12-09-2023 Albumin [Mass/Vol] 3.8 g/dL 3.5 - 5.2 g/dL [facility] Albumin/Globulin [Mass ratio] 1.4 {ratio} 1.0 - 2.5 [facility] ALP [Catalytic activity/Vol] 106 U/L High 35 - 104 U/L [facility] ALT [Catalytic activity/Vol] 15 U/L 10 - 35 U/L [facility] Anion gap [Moles/Vol] 17 mmol/L High 9 - 16 mmol/L [facility] AST [Catalytic activity/Vol] 15 U/L 10 - 35 U/L [facility] Bilirubin [Mass/Vol] 0.3 mg/dL 0.00 - 1.20 mg/ dL [facility] Calcium [Mass/Vol] 8.9 mg/dL 8.6 - 10.4 mg/dL [facility] Chloride [Moles/Vol] 100 mmol/L 98 - 107 mmol/L [facility] CO2 [Moles/Vol] 19 mmol/L Low 20 - 31 mmol/L [facility] Creatinine [Mass/Vol] 2.1 mg/dL High 0.50 - 0.90 mg /dL [facility] Est, Glom Filt Rate 25 Low - PINF [facility] Comment on above: These results are not [...] that affects renal tubular secretion. Glucose [Mass/Vol] 149 mg/dL High 74 - 99 mg/dL [facility] Interpretation and review of laboratory results Abnormal [facility] Potassium [Moles/Vol] 3.9 mmol/L 3.7 - 5.3 mmol /L [facility] Protein [Mass/Vol] 6.5 g/dL Low 6.6 - 8.7 g/dL [facility] Sodium [Moles/Vol] 136 mmol/L 136 - 145 mmol/L [facility] Urea nitrogen [Mass/Vol] 30 mg/dL High 8 - 23 mg/dL [facility] Urea nitrogen/Creatinine [Mass ratio] 14 mg/mg 9 - 20 [facility] Lactic Acidon 12-09-2023 Lactate [Moles/Vol] 2.5 mmol/L High 0.5-2.2 [facility] Comment on above: Performed By: #### L ACTIC #### [facility] [address] [place] [address] Director Validation: Sravani Gordon MD Interpretation and review of laboratory results Abnormal [facility] Lactate (BldV) [Moles/Vol] 2.5 mmol/L High 0.5 - 2.2 mmol/L [facility] Microscopic Urinalysison Amorphous sediment LM Ql (Urine sed) 1+ Abnormal None [facility] Bacteria LM Ql (Urine sed) 2+ Abnormal None [facility] Casts LM.LPF (Urine sed) [#/Area] 2 TO 5 FINE GRANULAR /LPF [facility] Casts LM.LPF (Urine sed) [#/Area] 2 TO 5 WAXY /LPF [facility] Casts LM.LPF (Urine sed) [#/Area] 20 TO 50 HYALINE /LPF [facility] Epithelial cells LM.HPF (Urine sed) [#/Area] None [facility] Interpretation and review of laboratory results Abnormal [facility] Mucus Ql (Urine sed) 2+ Abnormal None [facility] RBC LM.HPF (Urine sed) [#/Area] 0 TO 2 [facility] WBC LM.HPF (Urine sed) [#/Area] 2 TO 5 [facility] No Panel Informationon 12-08 No acute intracranial abnormality. No acute fracture in the cervical spine. [facility] EXAMINATION: CT OF THE CERVICAL SPINE WITHOUT CONTRAST; CT OF THE HEAD WITHOUT CONTRAST 12/09/2023 8:42 pm; 12/09/2023 8:44 pm TECHNIQUE: CT of the cervical spine was performed without the administration of intravenous contrast. Multiplanar reformatted images are provided for review. Automated exposure control, iterative reconstruction, and/or weight based adjustment of the mA/kV was utilized to reduce the radiation dose to as low as reasonably achievable.; CT of the head was performed without the administration of intravenous contrast. Automated exposure control, iterative reconstruction, and/or weight based adjustment of the mA/kV was utilized to reduce the radiation dose to as low as reasonably achievable. COMPARISON: 12/26/2011 HISTORY: ORDERING SYSTEM PROVIDED HISTORY: fall, mid thoracic back pain TECHNOLOGIST PROVIDED HISTORY: fall, mid thoracic back pain Decision Support Exception - unselect if not a suspected or confirmed emergency medical condition->Emergenc y Medical Condition (MA); ORDERING SYSTEM PROVIDED HISTORY: fall, syncope, LOC TECHNOLOGIST PROVIDED HISTORY: fall, syncope, LOC Decision Support Exception - unselect if not a suspected or confirmed emergency medical condition->Emergenc y Medical Condition (MA) FINDINGS: BRAIN/VENTRICLES: There is no acute intracranial hemorrhage, mass effect or midline shift. No abnormal extra-axial fluid collection. The iraheta-white differentiation is maintained without evidence of an acute infarct. There is no evidence of hydrocephalus. ORBITS: The visualized portion of the orbits demonstrate no acute abnormality. SINUSES: The visualized paranasal sinuses and mastoid air cells demonstrate no acute abnormality. SOFT TISSUES/SKULL: No acute abnormality of the visualized skull or soft tissues. CERVICAL SPINE BONES/ALIGNMENT: There is no acute fracture or traumatic malalignment. DEGENERATIVE CHANGES: Mild degenerative changes. SOFT TISSUES: There is no prevertebral soft tissue swelling. [facility] Heber Yung MD - 12/09/2023 EXAMINATION: CT OF THE CERVICAL SPINE WITHOUT CONTRAST; CT OF THE HEAD WITHOUT CONTRAST 12/09/2023 8:42 pm; 12/09/2023 8:44 pm TECHNIQUE: CT of the cervical spine was performed without the administration of intravenous contrast. Multiplanar reformatted images are provided for review. Automated exposure control, iterative reconstruction, and/or weight based adjustment of the mA/kV was utilized to reduce the radiation dose to as low as reasonably achievable.; CT of the head was performed without the administration of intravenous contrast. Automated exposure control, iterative reconstruction, and/or weight based adjustment of the mA/kV was utilized to reduce the radiation dose to as low as reasonably achievable. COMPARISON: 12/26/2011 HISTORY: ORDERING SYSTEM PROVIDED HISTORY: fall, mid thoracic back pain TECHNOLOGIST PROVIDED HISTORY: fall, mid thoracic back pain Decision Support Exception - unselect if not a suspected or confirmed emergency medical condition->Emergenc y Medical Condition (MA); ORDERING SYSTEM PROVIDED HISTORY: fall, syncope, LOC TECHNOLOGIST PROVIDED HISTORY: fall, syncope, LOC Decision Support Exception - unselect if not a suspected or confirmed emergency medical condition->Emergenc y Medical Condition ([place]) FINDINGS: BRAIN/VENTRICLES: There is no acute intracranial hemorrhage, mass effect or midline shift. No abnormal extra-axial fluid collection. The iraheta-white differentiation is maintained without evidence of an acute infarct. There is no evidence of hydrocephalus. ORBITS: The visualized portion of the orbits demonstrate no acute abnormality. SINUSES: The visualized paranasal sinuses and mastoid air cells demonstrate no acute abnormality. SOFT TISSUES/SKULL: No acute abnormality of the visualized skull or soft tissues. CERVICAL SPINE BONES/ALIGNMENT: There is no acute fracture or traumatic malalignment. DEGENERATIVE CHANGES: Mild degenerative changes. SOFT TISSUES: There is no prevertebral soft tissue swelling. IMPRESSION: No acute intracranial abnormality. No acute fracture in the cervical spine. [facility] No Panel InformationOrdered By: Heber Yung on 12-09-2023 [facility] Work Phone: Portable XR Chest AP single viewon 12-09-2023 No acute cardiopulmonary process. [facility] EXAMINATION: ONE XRAY VIEW OF THE CHEST 12/09/2023 6:38 pm COMPARISON: 08/21/2023. HISTORY: ORDERING SYSTEM PROVIDED HISTORY: syncope TECHNOLOGIST PROVIDED HISTORY: syncope FINDINGS: The heart size is within normal limits. The pulmonary vasculature is also within normal limits. No acute infiltrates are seen. No pneumothoraces are noted. [facility] Carlos Sparrow MD - 12/09/2023 EXAMINATION: ONE XRAY VIEW OF THE CHEST 12/09/2023 6:38 pm COMPARISON: 08/21/2023. HISTORY: ORDERING SYSTEM PROVIDED HISTORY: syncope TECHNOLOGIST PROVIDED HISTORY: syncope FINDINGS: The heart size is within normal limits. The pulmonary vasculature is also within normal limits. No acute infiltrates are seen. No pneumothoraces are noted. IMPRESSION: No acute cardiopulmonary process. [facility] Radiology Study observation (narrative) [facility] Portable XR Chest AP single viewOrdered By: Carlos Sparrow on 12-09-2023 [facility] Work Phone: [id number] 12-09-2023 SARS-CoV-2 (COVID-19) RNA HAWA+probe Ql (Unsp spec) Not detected Normal NOTDET [facility] Comment on above: Result Comment: Rapid NAAT: The specimen is NEGATIVE for SARS-CoV-2, the novel coronavirus associated with COVID-19. The ID NOW COVID-19 assay is designed to detect the virus that causes COVID-19 in patients with signs and symptoms of infection who are suspected of COVID-19. An individual without symptoms of COVID-19 and who is not shedding SARS-CoV-2 virus would expect to have a negative (not detected) result in this assay. Negative results should be treated as presumptive and, if inconsistent with clinical signs and symptoms or necessary for patient management, should be tested with an alternative molecular assay. Negative results do not preclude SARS-CoV-2 infection and should not be used as the sole basis for patient management decisions. Fact sheet for Healthcare Providers: https://www.fda.gov/media/285823/download Fact sheet for Patients: https://www.fda.gov/media/259407/download Methodology: Isothermal Nucleic Acid Amplification Performed By: #### C P, CDP #### [facility] [address] [place] [address] Director Validation: Sravani Gordon MD #### LIPR #### [facility] [address] [place] [address] Director Validation: Robi Veliz MD Troponinon 12-09-2023 Troponin I.cardiac High sensitivity method [Mass/Vol] 14 ng/L 0 - 14 ng/L [facility] Comment on above: High Sensitivity Tro ponin values cannot be compared with other Troponin methodologies. [facility] Troponin, High Sens 14 ng/L Normal 0-14 [facility] Comment on above: Result Comment: High Sensitivity Troponin values cannot be compared with other Troponin methodologies. Performed By: #### T CLAY #### [facility] [address] [place], [place] [id number] Director Validation: Sravani Gordon MD Interpretation and review of laboratory results Abnormal [facility] Troponin I.cardiac High sensitivity method [Mass/Vol] 15 ng/L High 0 - 14 ng/L [facility] Comment on above: High Sensitivity Tro ponin values cannot be compared with other Troponin methodologies. [facility] Troponin, High Sens 15 ng/L High 0-14 [facility] Comment on above: Result Comment: High Sensitivity Troponin values cannot be compared with other Troponin methodologies. Performed By: #### C P, CDP #### [address] [place] [address] Director Validation: Sravani Gordon MD #### LIPR #### [address] [id number] Director Validation: Robi Veliz MD UA w/Reflex Cultureon 2023 Bilirubin, SemiQt,Ur Negative Normal NEG [facility] Comment on above: Performed By: #### U KATHE MELENDEZ #### [address] [place] [address] Director Validation: Sravani Gordon MD Blood, Urine Negative Normal NEG [facility] Comment on above: Performed By: #### U RISSA MELENDEZO #### [facility] [address] [place], [place] [id number] Director Validation: Sravani Gordon MD Clarity (U) Clear Normal CLEAR [facility] Comment on above: Performed By: #### U RISSA MELENDEZO #### [address] [place] [address] Director Validation: Sravani Gordon MD Color (U) Yellow Normal YEL [facility] Comment on above: Performed By: #### U AXRISSAO #### [facility] [address] [place] [address] [place] [place], [place] [id number] Director Validation: Sravani Gordon MD Glucose Ql (U) Negative Normal NEG [facility] in Hospital Comment on above: Performed By: #### U AX, UMICAO #### [facility] [address] [place] [address] [place] [place], [place] [id number] Director Validation: Sravani Gordon MD Ketones Ql (U) TRACE Abnormal NEG [facility] Comment on above: Performed By: #### U AX, UMICAO #### [facility] [address] [place] [address] [place] [place], [place] [id number] Director Validation: Sravani Gordon MD Leukocyte esterase Test strip Ql (U) Negative Normal NEG [facility] Comment on above: Performed By: #### U AX, UMICAO #### [address] [place], [place] 1947[address]83 Director Validation: Sravani Gordon MD Nitrite,Ur Negative Normal [facility] Comment on above: Performed By: #### U AX, UMICAO #### [address] [place], [place] [id number] Director Validation: Sravani Gordon MD PH,Ur 6.0 Normal 5.0-9.0 [facility] Comment on above: Performed By: #### U AX, UMICAO #### [address] [place], [place] [id number] Director Validation: Sravani Gordon MD Protein Ql (U) TRACE Abnormal NEG [facility] in Hospital Comment on above: Performed By: #### U AX, UMICAO #### [address] [place], [place] [id number] Director Validation: Sravani Gordon MD Spec. Hagaman,Ur >1.030 High 1.010-1.020 [facility] Comment on above: Performed By: #### U AX, UMICAO #### [facility] [address] [place] [address] [place] [address] Director Validation: Sravani Gordon MD Urobilinogen,Ur Normal Normal 0.0-1.0 [facility] Comment on above: Performed By: #### U AXRISSAO #### [facility] [address] [place] [address] Director Validation: Sravani Gordon MD Urinalysis with Reflex to Cu ltureon 12-09-2023 Bilirubin Ql (U) Negative NEGATIVE [facility] Clarity (U) Clear Clear [facility] Color (U) Yellow Yellow [facility] Glucose Test strip (U) [Mass/Vol] Negative NEGATIVE mg/dL [facility] Hemoglobin Auto test strip Ql (U) Negative NEGATIVE [facility] Interpretation and review of laboratory results Abnormal [facility] Ketones (U) [Mass/Vol] TRACE Abnormal NEGATIVE mg/dL [facility] Leukocyte esterase Test strip Ql (U) Negative NEGATIVE [facility] Nitrite Ql (U) Negative NEGATIVE [facility] pH (U) 6.0 [pH] 5.0 - 9.0 [facility] Protein (U) [Mass/Vol] TRACE Abnormal NEGATIVE mg/dL [facility] Specific gravity (U) [Rel density] High 1.010 - 1.020 [facility] Urobilinogen Qn (U) Normal 0.0 - 1.0 EU/dL [facility] Urinalysis,Microon 4 Amorphous sediment LM Ql (Urine sed) 1+ Abnormal [facility] Comment on above: Performed By: #### U KATHE MELENDEZ #### [facility] [address] [place] [address] Director Validation: Sravani Gordon MD Bacteria 2+ Abnormal [facility] Comment on above: Performed By: #### U RISSA MELENDEZO #### [facility] [address] [place] [address] Director Validation: Sravani Gordon MD Casts 2 TO 5 Normal [facility] Comment on above: Result Comment: FINE GRANULAR 2 TO 5 WAXY 20 TO 50 HYALINE Performed By: #### U AX, UMICAO #### [facility] [address] [place] [address] Director Validation: Sravani Gordon MD Epithelial cells LM Ql (Urine sed) None Normal 0-25 [facility] Comment on above: Performed By: #### U AX, UMICAO #### [facility] [address] [place], [place] [id number] Director Validation: Sravani Gordon MD Mucus Strands 2+ Abnormal NONE [facility] Comment on above: Performed By: #### U AX, UMICAO #### [facility] [address] [place] [address] Director Validation: Sravani Gordon MD Urine RBC's 0 TO 2 Normal 0-2 [facility] Comment on above: Performed By: #### U AX, UMICAO #### [facility] [address] [place] [address] Director Validation: Sravani Gordon MD Urine WBC's 2 TO 5 Normal 0-5 [facility] Comment on above: Performed By: #### U AX, UMICAO #### [facility] [address] [place] [address] Director Validation: Sravani Gordon MD XR CHEST PORTABLEon 12-09-19 XR CHEST PORTABLE EXAMINATION: ONE XRAY VIEW OF THE CHEST 12/09/2023 6:38 pm COMPARISON: 08/21/2023. HISTORY: ORDERING SYSTEM PROVIDED HISTORY: syncope TECHNOLOGIST PROVIDED HISTORY: syncope FINDINGS: The heart size is within normal limits. The pulmonary vasculature is also within normal limits. No acute infiltrates are seen. No pneumothoraces are noted. IMPRESSION: No acute cardiopulmonary process. Interpreted by: Carlos Sparrow MD Signed by: Carlos Sparrow MD 12/09/23 Final result Normal [facility] No Panel Informationon 10-10 EXAMINATION: THREE XRAY [...] sclerosis at the distal 2nd metatarsal neck. [facility] Mateo May MD - 10/11/2023 [...] Stable sclerosis at the distal 2nd metatarsal. [facility] [employer] No Panel InformationOrdered By: Mateo May on 10-11-2023 [facility] [employer] Work Phone: XR ANKLE LEFT (MIN 3 [...] Mateo May MD 10/11/23 Final result Normal [facility] XR FOOT LEFT (MIN 3 VIEWS)on [...] Mateo May MD 10/11/23 Final result Normal [facility] CBC with Auto Differentialon 10-09-2023 Basophils (Bld) [#/Vol] 0.12 10*3/uL [facility] Immature granulocytes (Bld) [#/Vol] [facility] Interpretation and review of laboratory results Abnormal [facility] Lymphocytes/100 WBC (Bld) 1.50 % [facility] Monocytes/100 WBC (Bld) 0.89 % [facility] Neutrophils/100 WBC (Bld) 61 % 36 - 65 % [facility] Nucleated RBC/100 WBC (Bld) [Ratio] 0.0 % 0.0 per 100 WBC [facility] Segmented neutrophils/100 WBC (Bld) 4.56 % [facility] WBC other (Bld) [#/Vol] 7.5 [facility] CBC with Diffon 10-09-2023 Basophils/100 WBC (Bld) 2 % Normal 0-2 [facility] Comment on above: Performed By: #### C P, CDP #### [facility] [address] [place] [address] Director Validation: Sravani Gordon MD #### LIPR #### [facility] [employer] [address] [place] [address] [id number] Director Validation: Robi Veliz MD Eosinophils (Bld) [#/Vol] 0.38 10*3/uL Normal 0.00-0.44 [facility] Comment on above: Performed By: #### C P, CDP #### [facility] [address] [place] [address] Director Validation: Sravani Gordon MD #### LIPR #### [facility] [employer] [address] [place] [address] [id number] Director Validation: Robi Veliz MD Eosinophils/100 WBC (Bld) 5 % High 1-4 [facility] Comment on above: Performed By: #### C P, CDP #### [address] [place] [address] Director Validation: Sravani Gordon MD #### LIPR #### [address] [id number] Director Validation: Robi Veliz MD Erythrocyte distribution width (RBC) [Ratio] 13.4 % Normal 11.8-14.4 [facility] Comment on above: Performed By: #### C P, CDP #### [address] [place] [address] Director Validation: Sravani Gordon MD #### LIPR #### [address] [id number] Director Validation: Robi Veliz MD Hematocrit (Bld) [Volume fraction] 46.7 % Normal 36.3-47.1 [facility] Comment on above: Performed By: #### C P, CDP #### [address] [place] [address] Director Validation: Sravani Gordon MD #### LIPR #### [address] [id number] Director Validation: Robi Veliz MD Hemoglobin (Bld) [Mass/Vol] 14.9 g/dL Normal 11.9-15.1 [facility] Comment on above: Performed By: #### C P, CDP #### [address] [place] [address] Director Validation: Sravani Gordon MD #### LIPR #### [address] [id number] Director Validation: Robi Veliz MD Immature granulocytes/100 WBC (Bld) 0 % Normal 0 [facility] Comment on above: Performed By: #### C P, CDP #### [address] [place] [id number] Director Validation: Sravani Gordon MD #### LIPR #### [place] [id number] Director Validation: Robi Veliz MD Lymphocytes/100 WBC (Bld) 20 % Low 24-43 [facility] Comment on above: Performed By: #### C P, CDP #### [address] [place] [id number] Director Validation: Sravani Gordon MD #### LIPR #### [place] [address] Director Validation: Robi Veliz MD MCH (RBC) [Entitic mass] 29.9 pg Normal 25.2-33.5 [facility] Comment on above: Performed By: #### C P, CDP #### [address] [place] [id number] Director Validation: Sravani Gordon MD #### LIPR #### [place] [address] Director Validation: Robi Veliz MD MCHC (RBC) [Mass/Vol] 31.9 g/dL Normal 28.4-34.8 [facility] Comment on above: Performed By: #### C P, CDP #### [address] [place] [id number] Director Validation: Sravani Gordon MD #### LIPR #### [place] [id number] Director Validation: Robi Veliz MD MCV (RBC) [Entitic vol] 93.6 fL Normal 82.6-102.9 [facility] Comment on above: Performed By: #### C P, CDP #### [address] [place] [address] Director Validation: Sravani Gordon MD #### LIPR #### [address] [id number] Director Validation: Robi Veliz MD Monocytes/100 WBC (Bld) 12 % Normal 3-12 [facility] Comment on above: Performed By: #### C P, CDP #### [address] [place] [id number] Director Validation: Sravani Gordon MD #### LIPR #### [address] [id number] Director Validation: Robi Veliz MD Platelet mean volume (Bld) [Entitic vol] 10.5 fL Normal 8.1-13.5 [facility] Comment on above: Performed By: #### C P, CDP #### [address] [place] [id number] Director Validation: Sravani Gordon MD #### LIPR #### [address] [id number] Director Validation: Robi Veliz MD Platelets (Bld) [#/Vol] 389 10*3/uL Normal 138-453 [facility] Comment on above: Performed By: #### C P, CDP #### [address] [place] [id number] Director Validation: Sravani Gordon MD #### LIPR #### [address] [id number] Director Validation: Robi Veliz MD RBC (Bld) [#/Vol] 4.99 10*6/uL Normal 3.95-5.11 [facility] Comment on above: Performed By: #### C P, CDP #### [address] [place] [id number] Director Validation: Sravani Gordon MD #### LIPR #### [place] [id number] [place] [address] Director Validation: Robi Veliz MD Abs. Basophil 0.12 k/uL Normal 0.00-0.20 [facility] Comment on above: Performed By: #### C P, CDP #### [facility] [address] [place] [address] [place] [address] Director Validation: Sravani Gordon MD #### LIPR #### [address] [id number] Director Validation: Robi Veliz MD Abs.Imm.Granulocyte <0.03 Normal 0.00-0.30 [facility] Comment on above: Performed By: #### C P, CDP #### [address] [place] [address] Director Validation: Sravani Gordon MD #### LIPR #### [place] [address] Director Validation: Robi Veliz MD Abs.Neutrophil (Seg) 4.56 k/uL Normal 1.50-8.10 [facility] Comment on above: Performed By: #### C P, CDP #### [address] [place] [address] Director Validation: Sravani Gordon MD #### LIPR #### [place] [address] Director Validation: Robi Veliz MD Lymphocytes (Bld) [#/Vol] 1.50 10*3/uL Normal 1.10-3.70 [facility] Comment on above: Performed By: #### C P, CDP #### [address] [place] [address] Director Validation: Sravani Gordon MD #### LIPR #### [place] [address] [place] [address] Director Validation: Robi Veliz MD Monocytes (Bld) [#/Vol] 0.89 10*3/uL Normal 0.10-1.20 [facility] Comment on above: Performed By: #### C P, CDP #### [facility] [address] [place], [place] [id number] Director Validation: Sravani Gordon MD #### LIPR #### [address] [id number] Director Validation: Robi Veliz MD Neutrophil (Seg) 61 % Normal 36-65 [facility] Comment on above: Performed By: #### C P, CDP #### [facility] [address] [place] [address] Dr. [place], [place] [id number] Director Validation: Sravani Gordon MD #### LIPR #### [address] [id number] Director Validation: Robi Veliz MD NRBC Automated 0.0 per 100 WBC Normal 0.0 [facility] Comment on above: Performed By: #### C P, CDP #### [address] [place], [place] [id number] Director Validation: Sravani Gordon MD #### LIPR #### [address] [id number] Director Validation: Robi Veliz MD WBC (Bld) [#/Vol] 7.5 10*3/uL Normal 3.5-11.3 [facility] Comment on above: Performed By: #### C P, CDP #### [facility] [address] [place] [address] [place]. [place], [place] [id number] Director Validation: Sravani Gordon MD #### LIPR #### [address] [address] Director Validation: Robi Veliz MD Ferritinon 10-09-2023 Ferritin [Mass/Vol] 23 ng/mL 13 - 150 ng/mL B ON [facility] Comment on above: No reference range e stablished for this age/gender. Ferritin [Mass/Vol] 23 ng/mL Normal 13-150 [facility] Comment on above: Result Comment: No r eference range established for this age/gender. Performed By: #### C P, CDP #### [facility] [address] [place], [place] [id number] Director Validation: Sravani Gordon MD #### LIPR #### [address] [id number] Director Validation: Robi Veliz MD Iron Binding Cap.on 10-09-19 24 % Fe Saturation 18 % Low 20-55 [facility] Comment on above: Performed By: #### C P, CDP #### [facility] [address] [place] [address] [place] [place], [place] [id number] Director Validation: Sravani Gordon MD #### LIPR #### [address] [id number] Director Validation: Robi Veliz MD Iron [Mass/Vol] 75 ug/dL Normal 37-145 [facility] Comment on above: Performed By: #### C P, CDP #### [facility] [address] [place], [place] [id number] Director Validation: Sravani Gordon MD #### LIPR #### [place] [id number] [place], [place] [id number] Director Validation: Robi Veliz MD Total Fe Binding Cap 417 ug/dL Normal 250-450 [facility] Comment on above: Performed By: #### C P, CDP #### [facility] [address] [place], [place] [id number] Director Validation: Sravani Gordon MD #### LIPR #### [facility] [address] [place] [address] Director Validation: Robi Veliz MD Unbound Fe Bind Cap 342 ug/dL Normal 112-347 [facility] Comment on above: Performed By: #### C P, CDP #### [facility] [address] [place] [address] Director Validation: Sravani Gordon MD #### LIPR #### [facility] [address] [place] [address] Director Validation: Robi Veliz MD Iron and TIBCon 10-09-2023 Interpretation and review of laboratory results Abnormal [facility] [employer] Iron [Mass/Vol] 75 ug/dL 37 - 145 ug/dL [facility] [employer] Iron binding capacity [Mass/Vol] 417 ug/dL 250 - 450 ug/dL [facility] [employer] Iron saturation [Mass fraction] 18 % Low 20 - 55 % [employer] UIBC 342 ug/dL 112 - 347 ug/dL [facility] No Panel Informationon 10-08 [facility] [employer] XR Ankle - left 3 [facility] Study observation (narrative) [facility] [employer] XR Foot - left 3 [facility] Radiology Study observation (narrative) [facility] [employer] No Panel InformationOrdered By: Mauricio Lawrence on 10-02-2023 Baseline Diastolic BP 80 mmHg [employer] Work Phone: Baseline HR 115 bpm [facility] [employer] Work Phone: Baseline Systolic BP 128 mmHg [employer] Work Phone: Nuc Stress EF 83 % [employer] Work Phone: Recovery Stage 1 BP 110/72 mmHg [facility] [employer] Work Phone: Recovery Stage 1 Duration 0 min:sec [employer] Work Phone: Recovery Stage 1 HR 142 bpm [facility] [employer] Phone: Recovery Stage 2 Duration 1 min:sec [facility] Work Phone: Recovery Stage 2 HR 136 bpm [facility] Mary GARC[facility] Work Phone: Recovery Stage 3 BP 110/78 mmHg [facility] Work Phone: Recovery Stage 3 Duration 3 min:sec [facility] Work Phone: Recovery Stage 3 HR 126 bpm [facility] Mary G[facility] Work Phone: Recovery Stage 4 BP 122/68 mmHg [facility] Work Phone: Recovery Stage 4 Duration 5 min:sec [facility] Work Phone: Recovery Stage 4 HR 126 bpm [facility] Work Phone: Stress Diastolic BP 72 mmHg [facility] Mary G[facility] Work Phone: Stress Peak HR 142 bpm [facility] AR[place]IO Hernandez [facility] Work Phone: Stress Percent HR Achieved 93 % [facility] Work Phone: Stress Rate Pressure Product 34343 bpm*mmHg [facility] Work Phone: Stress Systolic BP 110 mmHg [facility] Work Phone: Stress Target HR 153 bpm [facility] FABRICIOO ARJUN [facility] Work Phone: [facility] Work Phone: No Panel Informationon 10-01 Stress [...] suggest a low risk of cardiac events. [facility] Panel Informationon 09-30 Radiology Study observation (narrative) [facility] DEXA BONE DENSITY AXIAL SKEL ETONon 09-19-2023 DEXA BONE DENSITY AXIAL SKELETON EXAMINATION: BONE DENSITOMETRY 09/19/2023 7:18 am TECHNIQUE: A bone density dual x-ray absorptiometry (DXA) scan was performed of the lumbar spine and left hip on a [employer] system. COMPARISON: None. HISTORY: ORDERING SYSTEM PROVIDED [...] or a 10-year probability of a major osteoporosis-relate d fracture greater than or equal to 20% [...] Jeet Hudson MD 09/19/23 Final result Normal [facility] XR ANKLE LEFT (MIN 3 VIEWS)o [...] Bridger Alves MD 09/18/23 Final result Normal [facility] XR FOOT LEFT (MIN 3 VIEWS)on [...] Bridger Alves MD 09/18/23 Final result Normal [facility] XR Foot - left 3 [employer] 1. Oblique, mildly displaced fracture of the medial malleolus without appreciable change in alignment. 2. Nondisplaced transverse fractures through the base of the 2nd-4th metatarsals without appreciable change in alignment. [facility] EXAMINATION: THREE XRAY VIEWS OF THE [...] reaction appreciated. No new osseous abnormality identified. [facility] Bridger Alves MD - 09/18/2023 EXAMINATION: [...] 2nd-4th metatarsals without appreciable change in alignment. [facility] XR Foot - left 3 ViewsOrdere d By: Bridger Alves on 09-18-2023 [facility] Work Phone: XR Foot - left 3 [facility] Radiology Study observation (narrative) [facility] [employer] CBC with Auto Differentialon 08-21-2023 Basophils (Bld) [#/Vol] 0.12 10*3/uL [facility] [employer] [facility] Basophils/100 WBC (Bld) 1 % 0 - 2 % [facility] Eosinophils (Bld) [#/Vol] 0.70 10*3/uL High [facility] [employer] [facility] Eosinophils/100 WBC (Bld) 9 % High 1 - 4 % [facility]AD[facility] [employer] HEALTH Erythrocyte distribution width (RBC) [Ratio] 13.5 % 11.8 - 14.4 % [facility] Hematocrit (Bld) [Volume fraction] 43.2 % 36.3 - 47.1 % [facility] Hemoglobin (Bld) [Mass/Vol] 14.1 g/dL 11.9 - 15.1 g/dL [facility] Immature granulocytes (Bld) [#/Vol] [facility] [employer]CCal[employer] HEALTH Immature granulocytes/100 WBC (Bld) 0 % 0 [facility] Interpretation and review of laboratory results Abnormal [facility] Lymphocytes/100 WBC (Bld) 19 % Low 24 - 43 % [facility] [employer] [facility] Lymphocytes/100 WBC (Bld) 1.53 % [facility] [employer] [facility] MCH (RBC) [Entitic mass] 30.7 pg 25.2 - 33.5 pg [facility] [employer] [facility] MCHC (RBC) [Mass/Vol] 32.6 g/dL 28.4 - 34.8 g/ dL [facility] MCV (RBC) [Entitic vol] 93.9 fL 82.6 - 102.9 fL [facility] SECInsideViewY HEALTH Monocytes/100 WBC (Bld) 13 % High 3 - 12 % [facility] SECADVANC[facility] [employer] HEALTH Monocytes/100 WBC (Bld) 1.11 % [facility] SECCalypso Wireless HEALTH Neutrophils/100 WBC (Bld) 58 % 36 - 65 % [facility] Nucleated RBC/100 WBC (Bld) [Ratio] 0.0 % 0.0 per 100 WBC [facility] Trends Platelet mean volume (Bld) [Entitic vol] 10.0 fL 8.1 - 13.5 fL [facility] Platelets (Bld) [#/Vol] 369 10*3/uL [facility] RBC (Bld) [#/Vol] 4.60 10*6/uL 3.95 - 5.11 m/uL [facility] Segmented neutrophils/100 WBC (Bld) 4.81 % [facility] WBC other (Bld) [#/Vol] 8.3 [facility] CBC with Diffon 08-21-2023 Abs. Basophil 0.12 k/uL Normal 0.00-0.20 [facility] Comment on above: Performed By: #### L ACTIC #### [address] [place], [place] [id number] Director Validation: Sravani Gordon MD Abs.Imm.Granulocyte <0.03 Normal 0.00-0.30 [facility] Comment on above: Performed By: #### L ACTIC #### [facility] [address] [place] [address] Dr. [place], [place] [id number] Director Validation: Sravani Gordon MD Abs.Neutrophil (Seg) 4.81 k/uL Normal 1.50-8.10 [facility] Comment on above: Performed By: #### L ACTIC #### [address] [place], [place] [id number] Director Validation: Sravani Gordon MD Basophils/100 WBC (Bld) 1 % Normal 0-2 [facility] Comment on above: Performed By: #### L ACTIC #### [facility] [address] [place] [address] Dr[address] [place], [place] [id number] Director Validation: Sravani Gordon MD Eosinophils (Bld) [#/Vol] 0.70 10*3/uL High 0.00-0.44 [facility] Comment on above: Performed By: #### L ACTIC #### [facility] [address] [place] [address] Dr. [place], [place] [id number] Director Validation: Sravani Gordon MD Eosinophils/100 WBC (Bld) 9 % High 1-4 [facility] Comment on above: Performed By: #### L ACTIC #### [facility] [address] [place], [place] [id number] Director Validation: Sravani Gordon MD Erythrocyte distribution width (RBC) [Ratio] 13.5 % Normal 11.8-14.4 [facility] Comment on above: Performed By: #### L ACTIC #### [facility] [address] [place], [place] [id number] Director Validation: Sravani Gordon MD Hematocrit (Bld) [Volume fraction] 43.2 % Normal 36.3-47.1 [facility] Comment on above: Performed By: #### L ACTIC #### [facility] [address] [place] [address] Dr[address] [place], [place] [id number] Director Validation: Sravani Gordon MD Hemoglobin (Bld) [Mass/Vol] 14.1 g/dL Normal 11.9-15.1 [facility] Comment on above: Performed By: #### L ACTIC #### [facility] [address] [place] [address] Dr[address] [place], [place] [id number] Director Validation: Sravani Gordon MD Immature granulocytes/100 WBC (Bld) 0 % Normal 0 [facility] Comment on above: Performed By: #### L ACTIC #### [facility] [address] [place], [place] [id number] Director Validation: Sravani Gordon MD Lymphocytes (Bld) [#/Vol] 1.53 10*3/uL Normal 1.10-3.70 [facility] Comment on above: Performed By: #### L ACTIC #### [facility] [address] [place], [place] [id number] Director Validation: Sravani Gordon MD Lymphocytes/100 WBC (Bld) 19 % Low 24-43 [facility] Comment on above: Performed By: #### L ACTIC #### [facility] [address] [place], [place] [id number] Director Validation: Sravani Gordon MD MCH (RBC) [Entitic mass] 30.7 pg Normal 25.2-33.5 [facility] Comment on above: Performed By: #### L ACTIC #### [facility] [address] [place], [facility]83 Director Validation: Sravani Gordon MD MCHC (RBC) [Mass/Vol] 32.6 g/dL Normal 28.4-34.8 [facility] Comment on above: Performed By: #### L ACTIC #### [address] [place], [place] [id number] Director Validation: Sravani Gordon MD MCV (RBC) [Entitic vol] 93.9 fL Normal 82.6-102.9 [facility] Comment on above: Performed By: #### L ACTIC #### [address] [place], [place] [id number] Director Validation: Sravani Gordon MD Monocytes (Bld) [#/Vol] 1.11 10*3/uL Normal 0.10-1.20 [facility] Comment on above: Performed By: #### L ACTIC #### [facility] [address] [place], [facility] Director Validation: Sravani Gordon MD Monocytes/100 WBC (Bld) 13 % High 3-12 [facility] Comment on above: Performed By: #### L ACTIC #### [facility] [address] [place] [address] Director Validation: Sravani Gordon MD Neutrophil (Seg) 58 % Normal 36-65 [facility] Comment on above: Performed By: #### L ACTIC #### [facility] [address] [place], [place] [id number] Director Validation: Sravani Gordon MD NRBC Automated 0.0 per 100 WBC Normal 0.0 [facility] Comment on above: Performed By: #### L ACTIC #### [facility] [address] [place], [place] [id number] Director Validation: Sravani Gordon MD Platelet mean volume (Bld) [Entitic vol] 10.0 fL Normal 8.1-13.5 [facility] Comment on above: Performed By: #### L ACTIC #### [facility] [address] [place], [place] [id number] Director Validation: Sravani Gordon MD Platelets (Bld) [#/Vol] 369 10*3/uL Normal 138-453 [facility] Comment on above: Performed By: #### L ACTIC #### [facility] [address] [place], [place] [id number] Director Validation: Sravani Gordon MD RBC (Bld) [#/Vol] 4.60 10*6/uL Normal 3.95-5.11 [facility] Comment on above: Performed By: #### L ACTIC #### [facility] [address] [place], [place] [id number] Director Validation: Sravani Gordon MD WBC (Bld) [#/Vol] 8.3 10*3/uL Normal 3.5-11.3 [facility] Comment on above: Performed By: #### L ACTIC #### [facility] [address] [place], [place] [id number] Director Validation: Sravani Gordon MD Comp Metabolic Profon 2023 Albumin [Mass/Vol] 4.1 g/dL Normal 3.5-5.2 [facility] Comment on above: Performed By: #### L ACTIC #### [facility] [address] [place], [place] [id number] Director Validation: Sravani Gordon MD Albumin/Glob Ratio 1.5 Normal 1.0-2.5 [facility] Comment on above: Performed By: #### L ACTIC #### [facility] [address] [place], [place] 1867683 Director Validation: Sravani Gordon MD Alkaline Phos 109 U/L High 35-104 [facility] Comment on above: Performed By: #### L ACTIC #### [facility] [address] [place], [place] [id number] Director Validation: Sravani Gordon MD ALT [Catalytic activity/Vol] 12 U/L Normal 5-33 [facility] Comment on above: Performed By: #### L ACTIC #### [facility] [address] [place], [place] [id number] Director Validation: Sravani Gordon MD Anion gap [Moles/Vol] 13 mmol/L Normal 9-17 [facility] Comment on above: Performed By: #### L ACTIC #### [facility] [address] [place], [place] [id number] Director Validation: Sravani Gordon MD AST [Catalytic activity/Vol] 13 U/L Normal <32 [facility] Comment on above: Performed By: #### L ACTIC #### [facility] [address] [place], [place] [id number] Director Validation: Sravani Gordon MD Bilirubin [Mass/Vol] 0.2 mg/dL Low 0.3-1.2 [facility] Comment on above: Performed By: #### L ACTIC #### [facility] [address] [place], [place] [id number] Director Validation: Sravani Gordon MD BUN/CRE Ratio 17 Normal 9-20 [facility] Comment on above: Performed By: #### L ACTIC #### [facility] [address] [place], [place] [id number] Director Validation: Sravani Gordon MD Calcium [Mass/Vol] 9.2 mg/dL Normal 8.6-10.4 [facility] Comment on above: Performed By: #### L ACTIC #### [facility] [address] [place] [id number] Director Validation: Sravani Gordon MD Chloride [Moles/Vol] 104 mmol/L Normal 98-107 [facility] Comment on above: Performed By: #### L ACTIC #### [facility] [address] [place] [id number] Director Validation: Sravani Gordon MD CO2 [Moles/Vol] 23 mmol/L Normal 20-31 [facility] Comment on above: Performed By: #### L ACTIC #### [facility] [address] [place] [address] Director Validation: Sravani Gordon MD Creatinine [Mass/Vol] 1.0 mg/dL High 0.5-0.9 [facility] Comment on above: Performed By: #### L ACTIC #### [facility] [address] [place] [address] Director Validation: Sravani Gordon MD GFR/1.73 sq M.predicted among non-blacks MDRD (S/P/Bld) [Vol rate/Area] 62 mL/min/{1.73_m2} Normal >60 [facility] Comment on above: Result Comment: These [...] renal tubular secretion. Performed By: #### L ACTIC #### [facility] [address] [place] [address] Director Validation: Sravani Gordon MD Glucose [Mass/Vol] 102 mg/dL High 70-99 [facility] Comment on above: Performed By: #### L ACTIC #### [facility] [address] [place] [address] Director Validation: Sravani Gordon MD Potassium [Moles/Vol] 3.8 mmol/L Normal 3.7-5.3 [facility] Comment on above: Performed By: #### L ACTIC #### [facility] [address] [place], [place] [id number] Director Validation: Sravani Gordon MD Protein [Mass/Vol] 6.9 g/dL Normal 6.4-8.3 [facility] Comment on above: Performed By: #### L ACTIC #### [facility] [address] [place] [address] Director Validation: Sravani Gordon MD Sodium [Moles/Vol] 140 mmol/L Normal 135-144 [facility] Comment on above: Performed By: #### L ACTIC #### [facility] [address] [place] [address] Director Validation: Sravani Gordon MD Urea nitrogen [Mass/Vol] 17 mg/dL Normal 8-23 [facility] Comment on above: Performed By: #### L ACTIC #### [facility] [address] [place] [address] Director Validation: Sravani Gordon MD Comprehensive Metabolic [facility] 08-21-2023 Albumin [Mass/Vol] 4.1 g/dL 3.5 - 5.2 g/dL [facility] Albumin/Globulin [Mass ratio] 1.5 {ratio} 1.0 - 2.5 [facility] ALP [Catalytic activity/Vol] 109 U/L High 35 - 104 U/L [facility] ALT [Catalytic activity/Vol] 12 U/L 5 - 33 U/L [facility] Anion gap [Moles/Vol] 13 mmol/L 9 - 17 mmol/L [facility] AST [Catalytic activity/Vol] 13 U/L NINF - 32 U/L [facility] Bilirubin [Mass/Vol] 0.2 mg/dL Low 0.3 - 1.2 mg/dL [facility] Calcium [Mass/Vol] 9.2 mg/dL 8.6 - 10.4 mg/dL [facility] Chloride [Moles/Vol] 104 mmol/L 98 - 107 mmol/L [facility] CO2 [Moles/Vol] 23 mmol/L 20 - 31 mmol/L [facility] Creatinine [Mass/Vol] 1.0 mg/dL High 0.5 - 0.9 mg/d L [facility] Est, [place] Filt Rate 62 - PINF [facility] Comment on above: These results are not [...] 102 mg/dL High 70 - 99 mg/dL [facility] Interpretation and review of laboratory results Abnormal [facility] Potassium [Moles/Vol] 3.8 mmol/L 3.7 - 5.3 mmol /L [facility] Protein [Mass/Vol] 6.9 g/dL 6.4 - 8.3 g/dL [facility] Sodium [Moles/Vol] 140 mmol/L 135 - 144 mmol/L [facility] Urea nitrogen [Mass/Vol] 17 mg/dL 8 - 23 mg/dL [facility] Urea nitrogen/Creatinine [Mass ratio] 17 mg/mg 9 - 20 [facility] Magnesiumon 08-21-2023 Magnesium [Mass/Vol] 1.9 mg/dL 1.6 - 2.6 mg/dL [facility] Magnesium [Mass/Vol] 1.9 mg/dL Normal 1.6-2.6 [facility] Comment on above: Performed By: #### C P, CDP #### [facility] [address] [place] [address] Director Validation: Sravani Gordon MD #### LIPR #### [facility] [address] [place] [address] Director Validation: Robi Veliz MD No Panel Informationon 08-20 Mild prominence of the bronchovascular markings within the lungs which may be related to viral pneumonia. Acute fractures involving the proximal 2nd through 4th metatarsals. Possible tiny avulsion fracture involving the medial base of the 1st metatarsal. Acute oblique intra-articular fracture of the lateral malleolus. [facility] EXAMINATION: THREE XRAY VIEWS OF THE [...] Soft tissue swelling of the lateral ankle. [facility] Oziel Brown MD - 08/21/2023 EXAMINATION: THREE [...] oblique intra-articular fracture of the lateral malleolus. [facility] No Panel InformationOrdered By: Oziel Brown on 08-21-2023 [facility] Work Phone: Portable XR Chest AP single viewon 08-21-2023 Radiology Study observation (narrative) [facility] TSH w/reflex to FT4on 2023 Thyroid Stim. Horm. 2.33 uIU/mL Normal 0.30-5.00 [facility] Comment on above: Performed By: #### C P, CDP #### [facility] [address] [place] [address] Director Validation: Sravani Gordon MD #### LIPR #### [facility] [place] [address] Director Validation: Robi Veliz MD TSH with Reflexon 08-21-2023 TSH Qn 2.33 m[IU]/L [facility] Troponinon 08-21-2023 Troponin I.cardiac High sensitivity method [Mass/Vol] 9 ng/L 0 - 14 ng/L [facility] Comment on above: High Sensitivity Tro ponin values cannot be compared with other Troponin methodologies. [facility] Troponin, High Sens 9 ng/L Normal 0-14 [facility] Comment on above: Result Comment: High Sensitivity Troponin values cannot be compared with other Troponin methodologies. Performed By: #### L ACTIC #### [facility] [address] [place] [address] Director Validation: Sravani Gordon MD XR ANKLE LEFT (MIN 3 VIEWS)o [...] Oziel Brown MD 08/21/23 Final result Normal [facility] XR Ankle - left 3 [facility] Radiology Study observation (narrative) [facility] XR CHEST PORTABLEon 08-21-19 XR CHEST [...] Oziel Brown MD 08/21/23 Final result Normal [facility] XR FOOT LEFT (MIN 3 VIEWS)on [...] Oziel Brown MD 08/21/23 Final result Normal [facility] XR Foot - left 3 [facility] Radiology Study observation (narrative) [facility] CBC with Diffon 07-13-2023 Abs. Basophil 0.13 k/uL Normal 0.00-0.20 [facility] Comment on above: Performed By: #### L ACTIC #### [facility] [address] [place] [address] [place] [address] Director Validation: Sravani Gordon MD Abs.Imm.Granulocyte <0.03 Normal 0.00-0.30 [facility] Comment on above: Performed By: #### L ACTIC #### [address] [place] [address] Director Validation: Sravani Gordon MD Abs.Neutrophil (Seg) 3.36 k/uL Normal 1.50-8.10 [facility] Comment on above: Performed By: #### L ACTIC #### [address] [place] [address] Director Validation: Sravani Gordon MD Basophils/100 WBC (Bld) 2 % Normal 0-2 [facility] Comment on above: Performed By: #### L ACTIC #### [facility] [address] [place] [address] [place] [address] Director Validation: Sravani Gordon MD Eosinophils (Bld) [#/Vol] 0.62 10*3/uL High 0.00-0.44 [facility] Comment on above: Performed By: #### L ACTIC #### [facility] [address] [place], [place] [id number] Director Validation: Sravani Gordon MD Eosinophils/100 WBC (Bld) 10 % High 1-4 [facility] Comment on above: Performed By: #### L ACTIC #### [facility] [address] [place] [address] Dr. [place], [place] 0123983 Director Validation: Sravani Gordon MD Erythrocyte distribution width (RBC) [Ratio] 12.9 % Normal 11.8-14.4 [facility] Comment on above: Performed By: #### L ACTIC #### [address] [place] [id number] Director Validation: Sravani Gordon MD Hematocrit (Bld) [Volume fraction] 37.3 % Normal 36.3-47.1 [facility] Comment on above: Performed By: #### L ACTIC #### [facility] [address] [place] [address] Dr. [place], [facility] Director Validation: Sravani Gordon MD Hemoglobin (Bld) [Mass/Vol] 12.2 g/dL Normal 11.9-15.1 [facility] Comment on above: Performed By: #### L ACTIC #### [address] [place], [place] 1341983 Director Validation: Sravani Gordon MD Immature granulocytes/100 WBC (Bld) 0 % Normal 0 [facility] Comment on above: Performed By: #### L ACTIC #### [facility] [address] [place] [address] Dr. [place], [place] [id number] Director Validation: Sravani Gordon MD Lymphocytes (Bld) [#/Vol] 1.61 10*3/uL Normal 1.10-3.70 [facility] Comment on above: Performed By: #### L ACTIC #### [facility] [address] [place] [address] Dr. [place], [place] [id number] Director Validation: Sravani Gordon MD Lymphocytes/100 WBC (Bld) 25 % Normal 24-43 [facility] Comment on above: Performed By: #### L ACTIC #### [facility] [address] [place], [place] [id number] Director Validation: Sravani Gordon MD MCH (RBC) [Entitic mass] 30.3 pg Normal 25.2-33.5 [facility] Comment on above: Performed By: #### L ACTIC #### [facility] [address] [place] [address] Dr. [place], [place] [id number] Director Validation: Sravani Gordon MD MCHC (RBC) [Mass/Vol] 32.7 g/dL Normal 28.4-34.8 [facility] Comment on above: Performed By: #### L ACTIC #### [address] [place], [place] 1304583 Director Validation: Sravani Gordon MD MCV (RBC) [Entitic vol] 92.8 fL Normal 82.6-102.9 [facility] Comment on above: Performed By: #### L ACTIC #### [address] [place], [place] 0403083 Director Validation: Sravani Gordon MD Monocytes (Bld) [#/Vol] 0.67 10*3/uL Normal 0.10-1.20 [facility] Comment on above: Performed By: #### L ACTIC #### [facility] [address] [place], [place] [id number] Director Validation: Sravani Gordon MD Monocytes/100 WBC (Bld) 11 % Normal 3-12 [facility] Comment on above: Performed By: #### L ACTIC #### [facility] [address] [place], [place] 7518283 Director Validation: Sravani Gordon MD Neutrophil (Seg) 52 % Normal 36-65 [facility] Comment on above: Performed By: #### L ACTIC #### [facility] [address] [place], [place] 7434483 Director Validation: Sravani Gordon MD NRBC Automated 0.0 per 100 WBC Normal 0.0 [facility] Comment on above: Performed By: #### L ACTIC #### [facility] [address] [place], [place] 1514483 Director Validation: Sravani Gordon MD Platelet mean volume (Bld) [Entitic vol] 9.7 fL Normal 8.1-13.5 [facility] Comment on above: Performed By: #### L ACTIC #### [address] [place], [place] 9893783 Director Validation: Sravani Gordon MD Platelets (Bld) [#/Vol] 293 10*3/uL Normal 138-453 [facility] Comment on above: Performed By: #### L ACTIC #### [address] [place], [place] [id number] Director Validation: Sravani Gordon MD RBC (Bld) [#/Vol] 4.02 10*6/uL Normal 3.95-5.11 [facility] Comment on above: Performed By: #### L ACTIC #### [address] [place], [place] 0227783 Director Validation: Sravani Gordon MD WBC (Bld) [#/Vol] 6.4 10*3/uL Normal 3.5-11.3 [facility] Comment on above: Performed By: #### L ACTIC #### [address] [place], [place] 1812583 Director Validation: Sravani Gordon MD Comp Metabolic Profon 2023 Albumin [Mass/Vol] 3.8 g/dL Normal 3.5-5.2 [facility] Comment on above: Performed By: #### L ACTIC #### [address] [place], [place] 4391683 Director Validation: Sravani Gordon MD Albumin/Glob Ratio 1.4 Normal 1.0-2.5 [facility] Comment on above: Performed By: #### L ACTIC #### [facility] [address] [place], [place] 7097683 Director Validation: Sravani Gordon MD Alkaline Phos 107 U/L High 35-104 [facility] Comment on above: Performed By: #### L ACTIC #### [facility] [address] [place], [place] 6270683 Director Validation: Sravani Gordon MD ALT [Catalytic activity/Vol] 13 U/L Normal 5-33 [facility] Comment on above: Performed By: #### L ACTIC #### [facility] [address] [place], [place] 8504883 Director Validation: Sravani Gordon MD Anion gap [Moles/Vol] 9 mmol/L Normal 9-17 [facility] Comment on above: Performed By: #### L ACTIC #### [facility] [address] [place], [place] 9560483 Director Validation: Sravani Gordon MD AST [Catalytic activity/Vol] 11 U/L Normal <32 [facility] Comment on above: Performed By: #### L ACTIC #### [facility] [address] [place], [place] 4508183 Director Validation: Sravani Gordon MD Bilirubin [Mass/Vol] 0.2 mg/dL Low 0.3-1.2 [facility] Comment on above: Performed By: #### L ACTIC #### [facility] [address] [place], [place] 5483683 Director Validation: Sravani Gordon MD BUN/CRE Ratio 11 Normal 9-20 [facility] Comment on above: Performed By: #### L ACTIC #### [facility] [address] [place] [address] Director Validation: Sravani Gordon MD Calcium [Mass/Vol] 8.8 mg/dL Normal 8.6-10.4 [facility] Comment on above: Performed By: #### L ACTIC #### [facility] [address] [place], [place] 7201983 Director Validation: Sravani Gordon MD Chloride [Moles/Vol] 109 mmol/L High 98-107 [facility] Comment on above: Performed By: #### L ACTIC #### [facility] [address] [place], [place] 3032083 Director Validation: Sravani Gordon MD CO2 [Moles/Vol] 26 mmol/L Normal 20-31 [facility] Comment on above: Performed By: #### L ACTIC #### [facility] [address] [place], [place] 6686383 Director Validation: Sravani Gordon MD Creatinine [Mass/Vol] 0.8 mg/dL Normal 0.5-0.9 [facility] Comment on above: Performed By: #### L ACTIC #### [facility] [address] [place], [place] 2368683 Director Validation: Sravani Gordon MD GFR/1.73 sq M.predicted among non-blacks MDRD (S/P/Bld) [Vol rate/Area] 81 mL/min/{1.73_m2} Normal >60 [facility] Comment on above: Result Comment: These [...] renal tubular secretion. Performed By: #### L ACTIC #### [facility] [address] [place], [place] 1411683 Director Validation: Sravani Gordon MD Glucose [Mass/Vol] 102 mg/dL High 70-99 [facility] Comment on above: Performed By: #### L ACTIC #### [facility] [address] [place], [place] 3584883 Director Validation: Sravani Gordon MD Potassium [Moles/Vol] 4.1 mmol/L Normal 3.7-5.3 [facility] Comment on above: Performed By: #### L ACTIC #### [facility] [address] [place], [place] 2989383 Director Validation: Sravani Gordon MD Protein [Mass/Vol] 6.5 g/dL Normal 6.4-8.3 [facility] Comment on above: Performed By: #### L ACTIC #### [facility] [address] [place] [address] [place] [place], [place] 2660583 Director Validation: Sravani Gordon MD Sodium [Moles/Vol] 144 mmol/L Normal 135-144 [facility] Comment on above: Performed By: #### L ACTIC #### [facility] [address] [place] [address] Dr[address] [place], [place] 3665183 Director Validation: Sravani Gordon MD Urea nitrogen [Mass/Vol] 9 mg/dL Normal 8-23 [facility] Comment on above: Performed By: #### L ACTIC #### [facility] [address] [place], [place] 7038583 Director Validation: Sravani Gordon MD Lipid Profileon 07-13-2023 Cholesterol [Mass/Vol] 219 mg/dL High 0-199 [facility] Comment on above: Result Comment: Cholesterol Guidelines: <200 Desirable 200-240 Borderline >240 Undesirable Performed By: #### L ACTIC #### [facility] [address] [place], [place] [id number] Director Validation: Sravani Gordon MD Cholesterol in HDL [Mass/Vol] 46 mg/dL Normal >40 [facility] Comment on above: Result Comment: HDL Guidelines: <40 Undesirable 40-59 Borderline >59 Desirable Performed By: #### L ACTIC #### [facility] [address] [place] [address] Director Validation: Sravani Gordon MD Cholesterol in LDL [Mass/Vol] 142 mg/dL High 0-100 [facility] Comment on above: Result Comment: LDL Guidelines: <100 Desirable 100-129 Near to/above Desirable 130-159 Borderline >159 Undesirable Direct (measured) LDL and calculated LDL are not interchangeable tests. Performed By: #### L ACTIC #### [facility] [address] [place], [place] 0626283 Director Validation: Sravani Gordon MD Cholesterol in VLDL [Mass/Vol] 31 mg/dL Normal [facility] Comment on above: Performed By: #### L ACTIC #### [facility] [address] [place], [place] 4554683 Director Validation: Sravani Gordon MD Cholesterol.total/Cho lesterol in HDL [Mass ratio] 5.0 {ratio} Normal [facility] Comment on above: Performed By: #### L ACTIC #### [facility] [address] [place], [place] 4785483 Director Validation: Sravani Gordon MD Triglyceride [Mass/Vol] 155 mg/dL High <150 [facility] Comment on above: Result Comment: Triglyceride Guidelines: <150 Desirable 150-199 Borderline 200-499 High >499 Very high Based on AHA Guidelines for fasting triglyceride, December 2011. Performed By: #### L ACTIC #### [facility] [address] [place] [address] Director Validation: Sravani Gordon MD Thyroid Stim. Horm.on 2023 Thyroid Stim. Horm. 1.30 uIU/mL Normal 0.30-5.00 [facility] Comment on above: Performed By: #### L ACTIC #### [facility] [address] [place] [address] [place] [id number] Director Validation: Sravani Gordon MD Thyroxine T4on 07-13-2023 T4 [Mass/Vol] 4.2 ug/dL Low 4.5-11.7 [facility] Comment on above: Performed By: #### L ACTIC #### [address] [place] [id number] Director Validation: Sravani Gordon MD CBC with Diffon 02-27-2023 Abs. Basophil 0.04 k/uL Normal 0.00-0.20 [facility] Comment on above: Performed By: #### C P, CDP #### [address] [place] [address] Director Validation: Sravani Gordon MD #### LIPR #### [place] [address] Director Validation: Robi Veliz MD Abs.Imm.Granulocyte <0.03 Normal 0.00-0.30 [facility] Comment on above: Performed By: #### C P, CDP #### [address] [place] [address] Director Validation: Sravani Gordon MD #### LIPR #### [place] [address] Director Validation: Robi Veliz MD Abs.Neutrophil (Seg) 4.65 k/uL Normal 1.50-8.10 [facility] Comment on above: Performed By: #### C P, CDP #### [address] [place] [id number] ( Director Validation: Sravani Gordon MD #### LIPR #### [address] [address] Director Validation: Robi Veliz MD Basophils/100 WBC (Bld) 1 % Normal 0-2 [facility] Comment on above: Performed By: #### C P, CDP #### [facility] [address] [place] [address] [place] [address] Director Validation: Sravani Gordon MD #### LIPR #### [address] [id number] Director Validation: Robi Veliz MD Eosinophils (Bld) [#/Vol] 0.68 10*3/uL High 0.00-0.44 [facility] Comment on above: Performed By: #### C P, CDP #### [address] [place] [id number] Director Validation: Sravani Gordon MD #### LIPR #### [address] [id number] Director Validation: Robi Veliz MD Eosinophils/100 WBC (Bld) 10 % High 1-4 [facility] Comment on above: Performed By: #### C P, CDP #### [address] [place] [id number] Director Validation: Sravani Gordon MD #### LIPR #### [address] [address] Director Validation: Robi Veliz MD Erythrocyte distribution width (RBC) [Ratio] 13.0 % Normal 11.8-14.4 [facility] Comment on above: Performed By: #### C P, CDP #### [address] [place] [id number] Director Validation: Sravani Gordon MD #### LIPR #### [address] [address] Director Validation: Robi Veliz MD Hematocrit (Bld) [Volume fraction] 35.6 % Low 36.3-47.1 [facility] Comment on above: Performed By: #### C P, CDP #### [facility] [address] [place] [address] Director Validation: Sravani Gordon MD #### LIPR #### [place] [address] [place], [place] [id number] Director Validation: Robi Veliz MD Hemoglobin (Bld) [Mass/Vol] 11.5 g/dL Low 11.9-15.1 [facility] Comment on above: Performed By: #### C P, CDP #### [facility] [address] [place] [address] Director Validation: Sravani Gordon MD #### LIPR #### [address] [id number] Director Validation: Robi Veliz MD Immature granulocytes/100 WBC (Bld) 0 % Normal 0 [facility] Comment on above: Performed By: #### C P, CDP #### [facility] [address] [place], [place] 055[address]3 Director Validation: Sravani Gordon MD #### LIPR #### [address] [address] Director Validation: Robi Veliz MD Lymphocytes (Bld) [#/Vol] 0.72 10*3/uL Low 1.10-3.70 [facility] Comment on above: Performed By: #### C P, CDP #### [facility] [address] [place], [place] [id number] Director Validation: Sravani Gordon MD #### LIPR #### [address] [address] Director Validation: Robi Veliz MD Lymphocytes/100 WBC (Bld) 11 % Low 24-43 [facility] Comment on above: Performed By: #### C P, CDP #### [facility] [address] [place], [place] [id number] Director Validation: Sravani Gordon MD #### LIPR #### [address] [id number] Director Validation: Robi Veliz MD MCH (RBC) [Entitic mass] 31.4 pg Normal 25.2-33.5 [facility] Comment on above: Performed By: #### C P, CDP #### [facility] [address] [place] [id number] Director Validation: Sravani Gordon MD #### LIPR #### [place] [id number] Director Validation: Robi Veliz MD MCHC (RBC) [Mass/Vol] 32.3 g/dL Normal 28.4-34.8 [facility] Comment on above: Performed By: #### C P, CDP #### [address] [place] [id number] Director Validation: Sravani Gordon MD #### LIPR #### [address] [address] Director Validation: Robi Veliz MD MCV (RBC) [Entitic vol] 97.3 fL Normal 82.6-102.9 [facility] Comment on above: Performed By: #### C P, CDP #### [address] [place], [place] 7965083 Director Validation: Sravani Gordon MD #### LIPR #### [address] [address] Director Validation: Robi Veliz MD Monocytes (Bld) [#/Vol] 0.75 10*3/uL Normal 0.10-1.20 [facility] Comment on above: Performed By: #### C P, CDP #### [facility] [address] [place], [place] 3304483 Director Validation: Sravani Gordon MD #### LIPR #### [place] [address] [place], [place] [id number] Director Validation: Robi Veliz MD Monocytes/100 WBC (Bld) 11 % Normal 3-12 [facility] Comment on above: Performed By: #### C P, CDP #### [facility] [address] [place], [place] [id number] Director Validation: Sravani Gordon MD #### LIPR #### [address] [address] Director Validation: Robi Veliz MD Neutrophil (Seg) 67 % High 36-65 [facility] Comment on above: Performed By: #### C P, CDP #### [address] [place], [place] [id number] Director Validation: Sravani Gordon MD #### LIPR #### [address] [address] Director Validation: Robi Veliz MD NRBC Automated 0.0 per 100 WBC Normal 0.0 [facility] Comment on above: Performed By: #### C P, CDP #### [address] [place], [place] [id number] Director Validation: Sravani Gordon MD #### LIPR #### [address] [address] Director Validation: Robi Veliz MD Platelet mean volume (Bld) [Entitic vol] 9.7 fL Normal 8.1-13.5 [facility] Comment on above: Performed By: #### C P, CDP #### [address] [place], [place] [id number] Director Validation: Sravani oGrdon MD #### LIPR #### [facility] [address] [place] [address] Director Validation: Robi Veliz MD Platelets (Bld) [#/Vol] 177 10*3/uL Normal 138-453 [facility] Comment on above: Performed By: #### C P, CDP #### [facility] [address] [place], [place] 3123783 Director Validation: Sravani Gordon MD #### LIPR #### [place] [address] [place] [address] Director Validation: Robi Veliz MD RBC (Bld) [#/Vol] 3.66 10*6/uL Low 3.95-5.11 [facility] Comment on above: Performed By: #### C P, CDP #### [facility] [address] [place] [address] [place] [id number] Director Validation: Sravani Gordon MD #### LIPR #### [address] [address] Director Validation: Robi Veliz MD WBC (Bld) [#/Vol] 6.9 10*3/uL Normal 3.5-11.3 [facility] Comment on above: Performed By: #### C P, CDP #### [facility] [address] [place] [address] Dr. [place], [place] 0748483 Director Validation: Sravani Gordon MD #### LIPR #### [address] [address] Director Validation: Robi Veliz MD Comp Metabolic Profon 2022 Albumin [Mass/Vol] 3.5 g/dL Normal 3.5-5.2 [facility] Comment on above: Performed By: #### C P, CDP #### [facility] [address] [place], [place] [id number] Director Validation: Sravani Gordon MD #### LIPR #### [address] [address] Director Validation: Robi Veliz MD Albumin/Glob Ratio 1.4 Normal 1.0-2.5 [facility] Comment on above: Performed By: #### C P, CDP #### [facility] [address] [place], [place] 3403583 Director Validation: Sravani Gordon MD #### LIPR #### [address] [address] Director Validation: Robi Veliz MD Alkaline Phos 86 U/L Normal 35-104 [facility] Comment on above: Performed By: #### C P, CDP #### [address] [place], [place] 7363383 Director Validation: Sravani Gordon MD #### LIPR #### [address] [address] Director Validation: Robi Veliz MD ALT [Catalytic activity/Vol] 21 U/L Normal 5-33 [facility] Comment on above: Performed By: #### C P, CDP #### [facility] [address] [place] [address] Dr. [place], [place] [id number] Director Validation: Sravani Gordon MD #### LIPR #### [address] [address] Director Validation: Robi Veliz MD Anion gap [Moles/Vol] 10 mmol/L Normal 9-17 [facility] Comment on above: Performed By: #### C P, CDP #### [address] [place], [place] [id number] Director Validation: Sravani Gordon MD #### LIPR #### [address] [address] Director Validation: Robi Veliz MD AST [Catalytic activity/Vol] 16 U/L Normal <32 [facility] Comment on above: Performed By: #### C P, CDP #### [facility] [address] [place], [place] 3904983 Director Validation: Sravani Gordon MD #### LIPR #### [address] [address] Director Validation: Robi Veliz MD Bilirubin [Mass/Vol] 0.3 mg/dL Normal 0.3-1.2 [facility] Comment on above: Performed By: #### C P, CDP #### [facility] [address] [place], [place] 2878183 Director Validation: Srvaani Gordon MD #### LIPR #### [address] [address] Director Validation: Robi Veliz MD BUN/CRE Ratio 13 Normal 9-20 [facility] Comment on above: Performed By: #### C P, CDP #### [facility] [address] [place], [place] [id number] Director Validation: Sravani Gordon MD #### LIPR #### [address] [address] Director Validation: Robi Veliz MD Calcium [Mass/Vol] 8.8 mg/dL Normal 8.6-10.4 [facility] Comment on above: Performed By: #### C P, CDP #### [facility] [address] [place], [place] 5656083 Director Validation: Sravani Gordon MD #### LIPR #### [address] [address] Director Validation: Robi Veliz MD Chloride [Moles/Vol] 110 mmol/L High 98-107 [facility] Comment on above: Performed By: #### C P, CDP #### [facility] [address] [place], [place] 2054283 Director Validation: Sravani Gordon MD #### LIPR #### [facility] [address] [place], [place] [id number] Director Validation: Robi Veliz MD CO2 [Moles/Vol] 23 mmol/L Normal 20-31 [facility] Comment on above: Performed By: #### C P, CDP #### [facility] [address] [place], [place] 6160183 Director Validation: Sravani Godron MD #### LIPR #### [facility] [address] [place], [place] [id number] Director Validation: Robi Veliz MD Creatinine [Mass/Vol] 0.9 mg/dL Normal 0.5-0.9 [facility] Comment on above: Performed By: #### C P, CDP #### [address] [place] [address] Director Validation: Sravani Gordon MD #### LIPR #### [facility] [address] [place], [place] 5667308 Director Validation: Robi Veliz MD GFR/1.73 sq M.predicted among non-blacks MDRD (S/P/Bld) [Vol rate/Area] mL/min/{1.73_m2} Normal >60 [facility] Comment on above: Result Comment: These [...] renal tubular secretion. Performed By: #### C P, CDP #### [facility] [address] [place] [address] [place] [place], [place] 3658583 Director Validation: Sravani Gordon MD #### LIPR #### [place] [address] [place] [address] Director Validation: Robi Veliz MD Glucose [Mass/Vol] 90 mg/dL Normal 70-99 [facility] Comment on above: Performed By: #### C P, CDP #### [facility] [address] [place] [address] Dr. [place], [place] 7363983 Director Validation: Sravani Gordon MD #### LIPR #### [address] [address] Director Validation: Robi Veliz MD Potassium [Moles/Vol] 4.3 mmol/L Normal 3.7-5.3 [facility] Comment on above: Performed By: #### C P, CDP #### [address] [place], [place] 3755283 Director Validation: Sravani Gordon MD #### LIPR #### [address] [address] Director Validation: Robi Veliz MD Protein [Mass/Vol] 6.0 g/dL Low 6.4-8.3 [facility] Comment on above: Performed By: #### C P, CDP #### [address] [place], [place] [id number] Director Validation: Sravani Gordon MD #### LIPR #### [address] [address] Director Validation: Robi Veliz MD Sodium [Moles/Vol] 143 mmol/L Normal 135-144 [facility] Comment on above: Performed By: #### C P, CDP #### [address] [place], [place] 7043483 Director Validation: Sravani Gordon MD #### LIPR #### [place] [address] [place] [address] Director Validation: Robi Veliz MD Urea nitrogen [Mass/Vol] 12 mg/dL Normal 8-23 [facility] Comment on above: Performed By: #### C P, CDP #### [facility] [address] [place] [address] [place], [place] 5635383 Director Validation: Sravani Gordon MD #### LIPR #### [address] [address] Director Validation: Robi Veliz MD Lipid Profileon 02-27-2023 Cholesterol [Mass/Vol] 197 mg/dL Normal <200 [facility] Comment on above: Result Comment: Cholesterol Guidelines: <200 Desirable 200-240 Borderline >240 Undesirable Performed By: #### C P, CDP #### [facility] [address] [place] [address] [place] [id number] Director Validation: Sravani Gordon MD #### LIPR #### [address] [address] Director Validation: Robi Veliz MD Cholesterol in HDL [Mass/Vol] 49 mg/dL Normal >40 [facility] Comment on above: Result Comment: HDL Guidelines: <40 Undesirable 40-59 Borderline >59 Desirable Performed By: #### C P, CDP #### [facility] [address] [place] [address] Dr. [place], [place] 7628083 Director Validation: Sravani Gordon MD #### LIPR #### [address] [id number] Director Validation: Robi Veliz MD Cholesterol in LDL [Mass/Vol] 121 mg/dL Normal 0-130 [facility] Comment on above: Result Comment: LDL Guidelines: <100 Desirable 100-129 Near to/above Desirable 130-159 Borderline >159 Undesirable Direct (measured) LDL and calculated LDL are not interchangeable tests. Performed By: #### C P, CDP #### [facility] [address] [place], [place] [id number] Director Validation: Sravani Gordon MD #### LIPR #### [place] [place], [place] 3764208 Director Validation: Robi Veliz MD Cholesterol.total/Cho lesterol in HDL [Mass ratio] 4.0 {ratio} Normal <5 [facility] Comment on above: Performed By: #### C P, CDP #### [facility] [address] [place], [place] 2163883 Director Validation: Sravani Gordon MD #### LIPR #### [place] [address] [place], [place] 4084108 Director Validation: Robi Veliz MD Triglyceride [Mass/Vol] 135 mg/dL Normal <150 [facility] Comment on above: Result Comment: Triglyceride Guidelines: <150 Desirable 150-199 Borderline 200-499 High >499 Very high Based on AHA Guidelines for fasting triglyceride, December 2011. Performed By: #### C P, CDP #### [facility] [address] [place] [id number] Director Validation: Sravani Gordon MD #### LIPR #### [place] [place], [place] 3798508 Director Validation: Robi Veliz MD Basic Metabolic Profon 02-26 Anion gap [Moles/Vol] 7 mmol/L Low 9-17 [facility] Comment on above: Performed By: #### T ROPI #### [facility] [address] [place] [id number] Director Validation: Sravani Gordon MD BUN/CRE Ratio 21 High 9-20 [facility] Comment on above: Performed By: #### T ROPI #### [facility] [address] [place] [address] Director Validation: Sravani Gordon MD Calcium [Mass/Vol] 8.0 mg/dL Low 8.6-10.4 [facility] Comment on above: Performed By: #### T ROPI #### [facility] [address] [place] [address] Director Validation: Sravani Gordon MD Chloride [Moles/Vol] 109 mmol/L High 98-107 [facility] Comment on above: Performed By: #### T ROPI #### [facility] [address] [place], [place] 0765083 Director Validation: Sravani Gordon MD CO2 [Moles/Vol] 23 mmol/L Normal 20-31 [facility] Comment on above: Performed By: #### T ROPI #### [facility] [address] [place], [place] [id number] Director Validation: Sravani Gordon MD Creatinine [Mass/Vol] 0.9 mg/dL Normal 0.5-0.9 [facility] Comment on above: Performed By: #### T ROPI #### [facility] [address] [place] [address] Director Validation: Sravani Gordon MD GFR/1.73 sq M.predicted among non-blacks MDRD (S/P/Bld) [Vol rate/Area] mL/min/{1.73_m2} Normal >60 [facility] Comment on above: Result Comment: These [...] affects renal tubular secretion. Performed By: #### T ROPI #### [facility] [address] [place] [address] Director Validation: Sravani Gordon MD Glucose [Mass/Vol] 110 mg/dL High 70-99 [facility] Comment on above: Performed By: #### T ROPI #### [facility] [address] [place], [place] 5060383 Director Validation: Sravani Gordon MD Potassium [Moles/Vol] 4.6 mmol/L Normal 3.7-5.3 [facility] Comment on above: Performed By: #### T ROPI #### [facility] [address] [place], [place] 0349683 Director Validation: Sravani Gordon MD Sodium [Moles/Vol] 139 mmol/L Normal 135-144 [facility] Comment on above: Performed By: #### T ROPI #### [address] [place], [place] 6697783 Director Validation: Sravani Gordon MD Urea nitrogen [Mass/Vol] 19 mg/dL Normal 8-23 [facility] Comment on above: Performed By: #### T ROPI #### [facility] [address] [place] [address] Dr. [place], [facility] Director Validation: Sravani Gordon MD CBC with Diffon 02-26-2023 Abs. Basophil 0.00 k/uL Normal 0.0-0.2 [facility] Comment on above: Performed By: #### T ROPI #### [facility] [address] [place] [address] Dr. [place], [facility] Director Validation: Sravani Gordon MD Abs.Imm.Granulocyte 0.00 k/uL Normal 0.00-0.30 [facility] Comment on above: Performed By: #### T ROPI #### [facility] [address] [place] [address] Dr. [place], [place] [id number] Director Validation: Sravani Gordon MD Abs.Neutrophil (Seg) 7.47 k/uL Normal 1.50-8.10 [facility] Comment on above: Performed By: #### T ROPI #### [facility] [address] [place] [address] Dr. [place], [facility] Director Validation: Sravani Gordon MD Basophils/100 WBC (Bld) 0 % Normal 0-2 [facility] Comment on above: Performed By: #### T ROPI #### [facility] [address] [place], [place] [id number] Director Validation: Sravani Gordon MD Eosinophils (Bld) [#/Vol] 0.34 10*3/uL Normal 0.00-0.44 [facility] Comment on above: Performed By: #### T ROPI #### [facility] [address] [place] [id number] Director Validation: Sravani Gordon MD Eosinophils/100 WBC (Bld) 4 % Normal 1-4 [facility] Comment on above: Performed By: #### T ROPI #### [facility] [address] [place], [facility] Director Validation: Sravani Gordon MD Immature granulocytes/100 WBC (Bld) 0 % Normal 0 [facility] Comment on above: Performed By: #### T ROPI #### [facility] [address] [place], [facility] Director Validation: Sravani Gordon MD Lymphocytes (Bld) [#/Vol] 0.26 10*3/uL Low 1.10-3.70 [facility] Comment on above: Performed By: #### T ROPI #### [facility] [address] [place], [facility] Director Validation: Sravani Gordon MD Lymphocytes/100 WBC (Bld) 3 % Low 24-43 [facility] Comment on above: Performed By: #### T ROPI #### [facility] [address] [place] [address] Director Validation: Sravani Gordon MD Monocytes (Bld) [#/Vol] 0.43 10*3/uL Normal 0.10-1.20 [facility] Comment on above: Performed By: #### T ROPI #### [facility] [address] [place], [place] 1770283 Director Validation: Sravani Gordon MD Monocytes/100 WBC (Bld) 5 % Normal 3-12 [facility] Comment on above: Performed By: #### T ROPI #### [facility] [address] [place], [facility] Director Validation: Sravani Gordon MD Morphology Wicho (Bld) [Interp] Platelet scan shows Normal Platelets Normal [facility] Comment on above: Result Comment: DOHL E BODIES PRESENT Performed By: #### T ROPI #### [address] [place], [facility]83 Director Validation: Sravani Gordon MD Neutrophil (Seg) 88 % High 36-65 [facility] Comment on above: Performed By: #### T ROPI #### [address] [place], [place] [id number] Director Validation: Sravani Gordon MD Erythrocyte distribution width (RBC) [Ratio] 13.2 % Normal 11.8-14.4 [facility] Comment on above: Performed By: #### T ROPI #### [address] [place], [facility] Director Validation: Sravani Gordon MD Hematocrit (Bld) [Volume fraction] 31.9 % Low 36.3-47.1 [facility] Comment on above: Performed By: #### T ROPI #### [address] [place], [facility] Director Validation: Sravani Gordon MD Hemoglobin (Bld) [Mass/Vol] 10.3 g/dL Low 11.9-15.1 [facility] Comment on above: Performed By: #### T ROPI #### [address] [place], [place] [id number] Director Validation: Sravani Gordon MD MCH (RBC) [Entitic mass] 31.7 pg Normal 25.2-33.5 [facility] Comment on above: Performed By: #### T ROPI #### [address] [place], [place] 1172283 Director Validation: Sravani Gordon MD MCHC (RBC) [Mass/Vol] 32.3 g/dL Normal 28.4-34.8 [facility] Comment on above: Performed By: #### T ROPI #### [address] [place], [facility] Director Validation: Sravani Gordon MD MCV (RBC) [Entitic vol] 98.2 fL Normal 82.6-102.9 [facility] Comment on above: Performed By: #### T ROPI #### [address] [place], [facility] Director Validation: Sravani Gordon MD NRBC Automated 0.0 per 100 WBC Normal 0.0 [facility] Comment on above: Performed By: #### T ROPI #### [address] [place], [place] 1874183 Director Validation: Sravani Gordon MD Platelet mean volume (Bld) [Entitic vol] 10.1 fL Normal 8.1-13.5 [facility] Comment on above: Performed By: #### T ROPI #### [address] [place], [place] [id number] Director Validation: Sravani Gordon MD Platelets (Bld) [#/Vol] 149 10*3/uL Normal 138-453 [facility] Comment on above: Performed By: #### T ROPI #### [address] [place], [place] 2474983 Director Validation: Sravani Gordon MD RBC (Bld) [#/Vol] 3.25 10*6/uL Low 3.95-5.11 [facility] Comment on above: Performed By: #### T REBEKAI #### [facility] [address] [place], [place] [id number] Director Validation: Sravani Gordon MD WBC (Bld) [#/Vol] 8.5 10*3/uL Normal 3.5-11.3 [facility] Comment on above: Performed By: #### T ROPI #### [facility] [address] [place], [place] 2294083 Director Validation: Sravani Gordon MD CT SHOULDER LEFT WO CONTRAST on [...] Oziel Reed MD 02/26/23 Final result Normal [facility] Troponinon 02-26-2023 Troponin, High Sens 9 ng/L Normal 0-14 [facility] Comment on above: Result Comment: High Sensitivity Troponin values cannot be compared with other Troponin methodologies. Performed By: #### T ROPI #### [address] [place], [place] [id number] Director Validation: Sravani Gordon MD CBC with Diffon 02-25-2023 Abs. Basophil 0.00 k/uL Normal 0.0-0.2 [facility] Comment on above: Performed By: #### C P, CDP #### [address] [place] [id number] Director Validation: Sravani Gordon MD #### LIPR #### [address] [id number] Director Validation: Robi Veliz MD Abs.Imm.Granulocyte 0.00 k/uL Normal 0.00-0.30 [facility] Comment on above: Performed By: #### C P, CDP #### [address] [place] [id number] Director Validation: Sravani Gordon MD #### LIPR #### [address] [address] Director Validation: Robi Veliz MD Abs.Neutrophil (Seg) 15.07 k/uL High 1.50-8.10 [facility] Comment on above: Performed By: #### C P, CDP #### [address] [place] [id number] Director Validation: Sravani Gordon MD #### LIPR #### [address] [address] Director Validation: Robi Veliz MD Basophils/100 WBC (Bld) 0 % Normal 0-2 [facility] Comment on above: Performed By: #### C P, CDP #### [address] [place] [address] Director Validation: Sravani Gordon MD #### LIPR #### [place] [address] Director Validation: Robi Veliz MD Eosinophils (Bld) [#/Vol] 0.32 10*3/uL Normal 0.00-0.44 [facility] Comment on above: Performed By: #### C P, CDP #### [address] [place] [id number] ( Director Validation: Sravani Gordon MD #### LIPR #### [place] [address] Director Validation: Robi Veliz MD Eosinophils/100 WBC (Bld) 2 % Normal 1-4 [facility] Comment on above: Performed By: #### C P, CDP #### [address] [place] [address] Director Validation: Sravani Gordon MD #### LIPR #### [place] [address] Director Validation: Robi Veliz MD Immature granulocytes/100 WBC (Bld) 0 % Normal 0 [facility] Comment on above: Performed By: #### C P, CDP #### [address] [place] [address] Director Validation: Sravani Gordon MD #### LIPR #### [place] [address] Director Validation: Robi Veliz MD Lymphocytes (Bld) [#/Vol] 0.16 10*3/uL Low 1.10-3.70 [facility] Comment on above: Performed By: #### C P, CDP #### [address] [place] [id number] Director Validation: Sravani Gordon MD #### LIPR #### [facility] [address] [place] [address] Director Validation: Robi Veliz MD Lymphocytes/100 WBC (Bld) 1 % Low 24-43 [facility] Comment on above: Performed By: #### C P, CDP #### [facility] [address] [place], [place] [id number] Director Validation: Sravani Gordon MD #### LIPR #### [address] [address] Director Validation: Robi Veliz MD Monocytes (Bld) [#/Vol] 0.65 10*3/uL Normal 0.10-1.20 [facility] Comment on above: Performed By: #### C P, CDP #### [facility] [address] [place] [address] Director Validation: Sravani Gordon MD #### LIPR #### [address] [address] Director Validation: Robi Veliz MD Monocytes/100 WBC (Bld) 4 % Normal 3-12 [facility] Comment on above: Performed By: #### C P, CDP #### [facility] [address] [place], [place] 5922083 Director Validation: Sravani Gordon MD #### LIPR #### [address] [address] Director Validation: Robi Veliz MD Morphology Wicho (Bld) [Interp] Platelet clumps present, count appears adequate. Normal [facility] Comment on above: Performed By: #### C P, CDP #### [facility] [address] [place] [address] Director Validation: Sravani Gordon MD #### LIPR #### [address] [address] Director Validation: Robi Veliz MD Neutrophil (Seg) 93 % High 36-65 [facility] Comment on above: Performed By: #### C P, CDP #### [facility] [address] [place] [address] [place] [place], [place] [id number] Director Validation: Sravani Gordon MD #### LIPR #### [address] [address] Director Validation: Robi Veliz MD Erythrocyte distribution width (RBC) [Ratio] 13.2 % Normal 11.8-14.4 [facility] Comment on above: Performed By: #### C P, CDP #### [address] [place], [place] [id number] Director Validation: Sravani Gordon MD #### LIPR #### [address] [address] Director Validation: Robi Veliz MD Hematocrit (Bld) [Volume fraction] 37.3 % Normal 36.3-47.1 [facility] Comment on above: Performed By: #### C P, CDP #### [address] [place], [place] [id number] Director Validation: Sravani Gordon MD #### LIPR #### [address] [address] Director Validation: Robi Veliz MD Hemoglobin (Bld) [Mass/Vol] 12.2 g/dL Normal 11.9-15.1 [facility] Comment on above: Performed By: #### C P, CDP #### [address] [place], [place] [phone] Director Validation: Sravani Gordon MD #### LIPR #### [address] [address] Director Validation: Robi Veliz MD MCH (RBC) [Entitic mass] 31.6 pg Normal 25.2-33.5 [facility] Comment on above: Performed By: #### C P, CDP #### [address] [place] [address] Director Validation: Sravani Gordon MD #### LIPR #### [address] [id number] Director Validation: Robi Veliz MD MCHC (RBC) [Mass/Vol] 32.7 g/dL Normal 28.4-34.8 [facility] Comment on above: Performed By: #### C P, CDP #### [address] [place] [address] Director Validation: Sravani Gordon MD #### LIPR #### [address] [id number] Director Validation: Robi Veliz MD MCV (RBC) [Entitic vol] 96.6 fL Normal 82.6-102.9 [facility] Comment on above: Performed By: #### C P, CDP #### [address] [place] [address] Director Validation: Sravani Gordon MD #### LIPR #### [address] [address] Director Validation: Robi Veliz MD NRBC Automated 0.0 per 100 WBC Normal 0.0 [facility] Comment on above: Performed By: #### C P, CDP #### [address] [place] [address] Director Validation: Sravani Gordon MD #### LIPR #### [address] [address] Director Validation: Robi Veliz MD Platelet mean volume (Bld) [Entitic vol] 9.7 fL Normal 8.1-13.5 [facility] Comment on above: Performed By: #### C P, CDP #### [facility] [address] [place], [place] [id number] Director Validation: Sravani Gordon MD #### LIPR #### [address] [address] Director Validation: Robi Veliz MD Platelets (Bld) [#/Vol] 201 10*3/uL Normal 138-453 [facility] Comment on above: Performed By: #### C P, CDP #### [facility] [address] [place], [place] [id number] Director Validation: Sravani Gordon MD #### LIPR #### [address] [address] Director Validation: Robi Veliz MD RBC (Bld) [#/Vol] 3.86 10*6/uL Low 3.95-5.11 [facility] Comment on above: Performed By: #### C P, CDP #### [address] [place], [place] [id number] Director Validation: Sravani Gordon MD #### LIPR #### [address] [address] Director Validation: Robi Veliz MD WBC (Bld) [#/Vol] 16.2 10*3/uL High 3.5-11.3 [facility] Comment on above: Performed By: #### C P, CDP #### [facility] [address] [place], [place] [id number] Director Validation: Sravani Gordon MD #### LIPR #### [address] [address] Director Validation: Robi Veliz MD Comp Metabolic Profon 2022 Albumin [Mass/Vol] 3.6 g/dL Normal 3.5-5.2 [facility] Comment on above: Performed By: #### C P, CDP #### [facility] [address] [place], [place] [id number] Director Validation: Sravani Gordon MD #### LIPR #### [address] [address] Director Validation: Robi Veliz MD Albumin/Glob Ratio 1.6 Normal 1.0-2.5 [facility] Comment on above: Performed By: #### C P, CDP #### [facility] [address] [place] [address] Director Validation: Sravani Gordon MD #### LIPR #### [address] [address] Director Validation: Robi Veliz MD Alkaline Phos 78 U/L Normal 35-104 [facility] Comment on above: Performed By: #### C P, CDP #### [facility] [address] [place], [place] 1491983 Director Validation: Sravani Gordon MD #### LIPR #### [address] [address] Director Validation: Robi Veliz MD ALT [Catalytic activity/Vol] 44 U/L High 5-33 [facility] Comment on above: Performed By: #### C P, CDP #### [facility] [address] [place] [address] Director Validation: Sravani Gordon MD #### LIPR #### [address] [address] Director Validation: Robi Veliz MD Anion gap [Moles/Vol] 13 mmol/L Normal 9-17 [facility] Comment on above: Performed By: #### C P, CDP #### [facility] [address] [place], [place] [id number] Director Validation: Sravani Gorodn MD #### LIPR #### [address] [address] Director Validation: Robi Veliz MD AST [Catalytic activity/Vol] 59 U/L High <32 [facility] Comment on above: Performed By: #### C P, CDP #### [facility] [address] [place] [address] Dr. [place], [place] [phone] Director Validation: Sravani Gordon MD #### LIPR #### [address] [address] Director Validation: Robi Veliz MD Bilirubin [Mass/Vol] 0.2 mg/dL Low 0.3-1.2 [facility] Comment on above: Performed By: #### C P, CDP #### [address] [place], [place] [id number] Director Validation: Sravani Gordon MD #### LIPR #### [address] [address] Director Validation: Robi Veliz MD BUN/CRE Ratio 16 Normal 9-20 [facility] Comment on above: Performed By: #### C P, CDP #### [facility] [address] [place] [address] Dr. [place], [place] [id number] Director Validation: Sravani Gordon MD #### LIPR #### [address] [address] Director Validation: Robi Veliz MD Calcium [Mass/Vol] 8.6 mg/dL Normal 8.6-10.4 [facility] Comment on above: Performed By: #### C P, CDP #### [address] [place], [place] [phone] Director Validation: Sravani Gordon MD #### LIPR #### [facility] [address] [place] [address] Director Validation: Robi Veliz MD Chloride [Moles/Vol] 98 mmol/L Normal 98-107 [facility] Comment on above: Performed By: #### C P, CDP #### [facility] [address] [place], [place] 5664983 Director Validation: Sravani Gordon MD #### LIPR #### [address] [address] Director Validation: Robi Veliz MD CO2 [Moles/Vol] 24 mmol/L Normal 20-31 [facility] Comment on above: Performed By: #### C P, CDP #### [facility] [address] [place], [place] [phone] Director Validation: Sravani Gordon MD #### LIPR #### [address] [address] Director Validation: Robi Veliz MD Creatinine [Mass/Vol] 1.5 mg/dL High 0.5-0.9 [facility] Comment on above: Performed By: #### C P, CDP #### [facility] [address] [place], [place] 5248183 Director Validation: Sravani Gordon MD #### LIPR #### [address] [address] Director Validation: Robi Veliz MD GFR/1.73 sq M.predicted among non-blacks MDRD (S/P/Bld) [Vol rate/Area] 38 mL/min/{1.73_m2} Low >60 [facility] Comment on above: Result Comment: These [...] renal tubular secretion. Performed By: #### C P, CDP #### [address] [place] [id number] Director Validation: Sravani Gordon MD #### LIPR #### [address] [address] Director Validation: Robi Veliz MD Glucose [Mass/Vol] 124 mg/dL High 70-99 [facility] Comment on above: Performed By: #### C P, CDP #### [address] [place] [id number] Director Validation: Sravani Gordon MD #### LIPR #### [address] [address] Director Validation: Robi Veliz MD Potassium [Moles/Vol] 4.8 mmol/L Normal 3.7-5.3 [facility] Comment on above: Performed By: #### C P, CDP #### [address] [place] [id number] Director Validation: Sravani Gordon MD #### LIPR #### [address] [address] Director Validation: Robi Veliz MD Protein [Mass/Vol] 5.8 g/dL Low 6.4-8.3 [facility] Comment on above: Performed By: #### C P, CDP #### [address] [place] [id number] Director Validation: Sravani Gordon MD #### LIPR #### [address] [address] Director Validation: Robi Veliz MD Sodium [Moles/Vol] 135 mmol/L Normal 135-144 [facility] Comment on above: Performed By: #### C P, CDP #### [facility] [address] [place], [place] [phone] Director Validation: Sravani Gordon MD #### LIPR #### [address] [address] Director Validation: Robi Veliz MD Urea nitrogen [Mass/Vol] 24 mg/dL High 8-23 [facility] Comment on above: Performed By: #### C P, CDP #### [facility] [address] [place], [place] 3046183 Director Validation: Sravani Gordon MD #### LIPR #### [address] [address] Director Validation: Robi Veliz MD Troponinon 02-25-2023 Troponin, High Sens 8 ng/L Normal 0-14 [facility] Comment on above: Result Comment: High Sensitivity Troponin values cannot be compared with other Troponin methodologies. Performed By: #### C P, CDP #### [facility] [address] [place], [place] [id number] Director Validation: Sravani Gordon MD #### LIPR #### [address] [address] Director Validation: Robi Veliz MD UA w/Reflex Cultureon 2022 Bilirubin, SemiQt,Ur Negative Normal NEG [facility] Comment on above: Performed By: #### C P, CDP #### [facility] [address] [place], [place] 5753483 Director Validation: Sravani Gordon MD #### LIPR #### [address] [address] Director Validation: Robi Veliz MD Blood, Urine Negative Normal NEG [facility] Comment on above: Performed By: #### C P, CDP #### [address] [place] [address] Director Validation: Sravani Gordon MD #### LIPR #### [facility] [address] [place] [address] Director Validation: Robi Veliz MD Clarity (U) Clear Normal CLEAR [facility] Comment on above: Performed By: #### C P, CDP #### [address] [place] [address] Director Validation: Sravani Gordon MD #### LIPR #### [address] [address] Director Validation: Robi Veliz MD Color (U) Yellow Normal YEL [facility] Comment on above: Performed By: #### C P, CDP #### [address] [place] [address] Director Validation: Sravani Gordon MD #### LIPR #### [address] [address] Director Validation: Robi Veliz MD Glucose Ql (U) Negative Normal NEG [facility] Comment on above: Performed By: #### C P, CDP #### [address] [place] [address] Director Validation: Sravani Gordon MD #### LIPR #### [address] [address] Director Validation: Robi Veliz MD Ketones Ql (U) Negative Normal NEG [facility] Comment on above: Performed By: #### C P, CDP #### [address] [place] [address] Director Validation: Sravani Gordon MD #### LIPR #### [address] [place] [address] Director Validation: Robi Veliz MD Leukocyte esterase Test strip Ql (U) Negative Normal NEG [facility] Comment on above: Performed By: #### C P, CDP #### [address] [place], [place] [id number] Director Validation: Sravani Gordon MD #### LIPR #### [address] [address] Director Validation: Robi Veliz MD Nitrite,Ur Negative Normal [facility] Comment on above: Performed By: #### C P, CDP #### [address] [place] [address] Director Validation: Sravani Gordon MD #### LIPR #### [address] [address] Director Validation: Robi Veliz MD PH,Ur 6.0 Normal 5.0-9.0 [facility] Comment on above: Performed By: #### C P, CDP #### [address] [place] [address] Director Validation: Sravani Gordon MD #### LIPR #### [address] [address] Director Validation: Robi Veliz MD Protein Ql (U) Negative Normal NEG [facility] Comment on above: Performed By: #### C P, CDP #### [address] [place], [place] [phone] Director Validation: Sravani Gordon MD #### LIPR #### [address] [address] Director Validation: Robi Veliz MD Spec. Hag[place],Ur <1.005 Low 1.010-1.020 [facility] Comment on above: Performed By: #### C P, CDP #### [address] [place], [place] [id number] Director Validation: rSavani Gordon MD #### LIPR #### [address] [address] Director Validation: Robi Veliz MD Urobilinogen,Ur Normal Normal 0.0-1.0 [facility] Comment on above: Performed By: #### C P, CDP #### [facility] [address] [place] [address] [place], [place] [id number] Director Validation: Sravani Gordon MD #### LIPR #### [address] [address] Director Validation: Robi Veliz MD Urinalysis,Microon 3 Amorphous sediment LM Ql (Urine sed) 1+ Abnormal NONE [facility] Comment on above: Performed By: #### C P, CDP #### [address] [place] [id number] Director Validation: Sravani Gordon MD #### LIPR #### [address] [address] Director Validation: Robi Veliz MD Bacteria 1+ Abnormal [facility] Comment on above: Performed By: #### C P, CDP #### [address] [place], [place] [id number] Director Validation: Sravani Gordon MD #### LIPR #### [address] [address] Director Validation: Robi Vleiz MD Epithelial cells LM Ql (Urine sed) 0 TO 2 Normal 0-25 [facility] Comment on above: Performed By: #### C P, CDP #### [facility] [address] [place] [address] Dr. [place], [place] [phone] Director Validation: Sravani Gordon MD #### LIPR #### [facility] [address] [place] [address] Director Validation: Robi Veliz MD Urine RBC's 0 TO 2 Normal 0-2 [facility] Comment on above: Performed By: #### C P, CDP #### [facility] [address] [place], [place] 1373483 Director Validation: Sravani Gordon MD #### LIPR #### [facility] [address] [place] [address] Director Validation: Robi Veliz MD Urine WBC's 0 TO 2 Normal 0-5 [facility] Comment on above: Performed By: #### C P, CDP #### [facility] [address] [place] [address] [place] [address] Director Validation: Sravani Gordon MD #### LIPR #### [facility] [address] [place] [address] Director Validation: Robi Veliz MD XR CHEST (2 VW)on 02-25-2023 XR [...] Sravani Cohen MD 02/25/23 Final result Normal [facility] XR SHOULDER LEFT (MIN 2 VIEW [...] Sravani Cohen MD 02/25/23 Final result Normal [facility] CBC with Auto Differentialon 10-06-2022 Basophils (Bld) [#/Vol] 0.09 10*3/uL [facility] Basophils/100 WBC (Bld) 2 % 0 - 2 % [facility] Eosinophils (Bld) [#/Vol] 0.45 10*3/uL High [facility] Eosinophils/100 WBC (Bld) 9 % High 1 - 4 % [facility] Erythrocyte distribution width (RBC) [Ratio] 12.8 % 11.8 - 14.4 % [facility] Hematocrit (Bld) [Volume fraction] 41.2 % 36.3 - 47.1 % [facility] Hemoglobin (Bld) [Mass/Vol] 13.4 g/dL 11.9 - 15.1 g/dL [facility] Immature granulocytes (Bld) [#/Vol] [facility] Immature granulocytes/100 WBC (Bld) 0 % 0 [facility] Interpretation and review of laboratory results Abnormal [facility] Lymphocytes/100 WBC (Bld) 24 % 24 - 43 % [facility] Lymphocytes/100 WBC (Bld) 1.22 % [facility] MCH (RBC) [Entitic mass] 31.8 pg 25.2 - 33.5 pg [facility] MCHC (RBC) [Mass/Vol] 32.5 g/dL 28.4 - 34.8 g/ dL [facility] MCV (RBC) [Entitic vol] 97.9 fL 82.6 - 102.9 fL [facility] Monocytes/100 WBC (Bld) 12 % 3 - 12 % [facility] Monocytes/100 WBC (Bld) 0.62 % [facility] Neutrophils/100 WBC (Bld) 53 % 36 - 65 % [facility] Nucleated RBC/100 WBC (Bld) [Ratio] 0.0 % 0.0 per 100 WBC [facility] Platelet mean volume (Bld) [Entitic vol] 9.8 fL 8.1 - 13.5 fL [facility] Platelets (Bld) [#/Vol] 278 10*3/uL [facility] RBC (Bld) [#/Vol] 4.21 10*6/uL 3.95 - 5.11 m/uL [facility] Segmented neutrophils/100 WBC (Bld) 2.68 % [facility] WBC other (Bld) [#/Vol] 5.1 [facility] Ferritinon 10-06-2022 Ferritin [Mass/Vol] 41 ng/mL 13 - 150 ng/mL B ON [facility] [employer] Iron and TIBCon 10-06-2022 Iron [Mass/Vol] 102 ug/dL 37 - 145 ug/dL [facility] [employer] Iron binding capacity [Mass/Vol] 318 ug/dL 250 - 450 ug/dL [facility] [employer] Iron saturation [Mass fraction] 32 % 20 - 55 % [facility] [employer] UIBC 216 ug/dL 112 - 347 ug/dL [facility] [employer] No Panel Informationon 10-06 [facility] [employer] EKG 12 LeadOrdered By: Monique Gibson hmad on 05-10-2022 Atrial Rate 90 BPM [facility] [employer] Work Phone: P [place] 68 degrees [facility] [employer] Work Phone: P-R Interval 142 ms [facility] [employer] Work Phone: Q-T Interval 326 ms [facility] Work Phone: QRS Duration 70 ms [facility] Work Phone: QTc Calculation (Bazett) 398 ms [facility] [employer] Work Phone: R [place] -11 degrees [facility] [employer] Work Phone: T [place] 46 degrees [facility] Work Phone: Ventricular Rate 90 BPM [facility] [employer] Work Phone: [employer] Phone: EKG 12 Leadon 05-10-2022 Normal sinus rhythm Nonspecific ST and T wave abnormality Abnormal ECG No previous ECGs available Confirmed by Monique Paz MD ([id number]) on 05/10/2022 9:38:[address] [facility] Monique Paz MD - 05/10/2022 Normal sinus rhythm Nonspecific ST and T wave abnormality Abnormal ECG No previous ECGs available Confirmed by Monique Paz MD ([id number]) on 05/10/2022 9:38:39 PM [employer] Phone: US LIVERon 05-10-2022 Unremarkable right upper quadrant ultrasound. [facility] EXAMINATION: RIGHT UPPER QUADRANT ULTRASOUND 05/10/2022 10:08 [...] No evidence of right upper quadrant ascites. [facility] Keron Suazo DO - 05/10/2022 EXAMINATION: RIGHT UPPER QUADRANT ULTRASOUND [...] ascites. IMPRESSION: Unremarkable right upper quadrant ultrasound. [employer] Phone: Radiology Study observation (narrative) [facility] Work Phone: [place] LIVEROrdered By: Keron thompson on 05-10-2022 [facility] Work Phone: Rapid influenza A/B antigens on 05-02-2022 FLUAV Ag Ql (Unsp spec) Negative NEGATIVE [facility] Comment on above: for Influenza A Anti gen FLUBV Ag Ql (Unsp spec) Negative NEGATIVE [facility] Comment on above: for Influenza B Anti gen. [facility] CBC with Auto Differentialon 04-28-2022 Absolute Eos # 0.56 High [facility] Absolute Immature Granulocyte [facility] Absolute Lymph # 0.64 Low [facility] Absolute [place] # 0.63 [facility] Basophils (Bld) [#/Vol] 0.04 10*3/uL [facility] Basophils/100 WBC (Bld) 1 % 0 - 2 % [facility] Eosinophils/100 WBC (Bld) 9 % High 1 - 4 % [facility] Hematocrit (Bld) [Volume fraction] 40.9 % 36.3 - 47.1 % [facility] Hemoglobin (Bld) [Mass/Vol] 13.4 g/dL 11.9 - 15.1 g/dL [facility] Immature granulocytes/100 WBC (Bld) 0 % 0 [facility] Interpretation and review of laboratory results Abnormal [facility] Lymphocytes/100 WBC (Bld) 10 % Low 24 - 43 % [facility] MCH (RBC) [Entitic mass] 31.9 pg 25.2 - 33.5 pg [facility] MCHC (RBC) [Mass/Vol] 32.8 g/dL 28.4 - 34.8 g/ dL [facility] MCV (RBC) [Entitic vol] 97.4 fL 82.6 - 102.9 fL [facility] Monocytes/100 WBC (Bld) 10 % 3 - 12 % [facility] NRBC Automated 0.0 0.0 per 100 WBC [facility] Platelet distribution width (Bld) [Ratio] 12.9 % 11.8 - 14.4 % [facility] Platelet mean volume (Bld) [Entitic vol] 10.5 fL 8.1 - 13.5 fL [facility] Platelets (Bld) [#/Vol] 158 10*3/uL [facility] RBC (Bld) [#/Vol] 4.20 10*6/uL 3.95 - 5.11 m/uL [facility] Segmented neutrophils/100 WBC (Bld) 70 % High 36 - 65 % [facility] Segs Absolute 4.41 [facility] WBC (Bld) [#/Vol] 6.3 10*3/uL [facility] Comprehensive Metabolic Pane mauricio 04-28-2022 Albumin [Mass/Vol] 3.8 g/dL 3.5 - 5.2 g/dL [facility] Albumin/Globulin [Mass ratio] 1.1 {ratio} 1.0 - 2.5 [facility] ALP [Catalytic activity/Vol] 178 U/L High 35 - 104 U/L [facility] ALT [Catalytic activity/Vol] 412 U/L High 5 - 33 U/L [facility] Anion gap [Moles/Vol] 14 mmol/L 9 - 17 mmol/L [facility] AST [Catalytic activity/Vol] 106 U/L High NINF - 32 U/L [facility] Bilirubin [Mass/Vol] 0.3 mg/dL 0.3 - 1.2 mg/dL [facility] Calcium [Mass/Vol] 9.6 mg/dL 8.6 - 10.4 mg/dL [facility] Chloride [Moles/Vol] 103 mmol/L 98 - 107 mmol/L [facility] CO2 [Moles/Vol] 24 mmol/L 20 - 31 mmol/L [facility] Creatinine [Mass/Vol] 0.76 mg/dL 0.50 - 0.90 mg /dL [facility] GFR/1.73 sq M.predicted MDRD (S/P/Bld) [Vol rate/Area] - PINF [facility] Comment on above: These results are not [...] 111 mg/dL High 70 - 99 mg/dL [facility] Interpretation and review of laboratory results Abnormal [facility] [employer] Potassium [Moles/Vol] 3.9 mmol/L 3.7 - 5.3 mmol /L [facility] Protein [Mass/Vol] 7.2 g/dL 6.4 - 8.3 g/dL [facility] Sodium [Moles/Vol] 141 mmol/L 135 - 144 mmol/L [facility] Urea nitrogen [Mass/Vol] 15 mg/dL 8 - 23 mg/dL [facility] Urea nitrogen/Creatinine (Bld) [Mass ratio] 20 9 - 20 [facility] Lipid Panelon 04-28-2022 Cholesterol [Mass/Vol] 288 mg/dL High NINF - 200 mg/dL [facility] Comment on above: Cholesterol Guidelines: <200 Desirable 200-240 Borderline >240 Undesirable Cholesterol in HDL [Mass/Vol] 60 mg/dL 40 - PINF mg/dL [facility] Comment on above: HDL Guidelines: <40 Undesirable 40-59 Borderline >59 Desirable Cholesterol in LDL [Mass/Vol] 196 mg/dL High 0 - 130 mg/dL [facility] Comment on above: LDL Guidelines: <100 Desirable 100-129 Near to/above Desirable 130-159 Borderline >159 Undesirable Direct (measured) LDL and calculated LDL are not interchangeable tests. Cholesterol.total/Cho lesterol in HDL [Mass ratio] 4.8 {ratio} NINF - 5 [facility] Interpretation and review of laboratory results Abnormal [facility] Triglyceride [Mass/Vol] 160 mg/dL High NINF - 150 mg/dL [facility] Comment on above: Triglyceride Guidelines: <150 Desirable 150-199 Borderline 200-499 High >499 Very high Based on AHA Guidelines for fasting triglyceride, December 2011. [facility] CBC with Auto Differentialon 12-01-2021 Absolute Eos # 0.31 [facility] Absolute Immature Granulocyte [facility] Absolute Lymph # 1.24 HUMAIRA REGALADOO URS [facility] Absolute [place] # 0.43 [facility]ENTER[facility]IE RS [facility] Basophils (Bld) [#/Vol] 0.07 10*3/uL [facility] Basophils/100 WBC (Bld) 2 % 0 - 2 % [facility] Eosinophils/100 WBC (Bld) 7 % High 1 - 4 % [facility] Hematocrit (Bld) [Volume fraction] 39.7 % 36.3 - 47.1 % [facility] Hemoglobin (Bld) [Mass/Vol] 13.1 g/dL 11.9 - 15.1 g/dL [facility] Immature granulocytes/100 WBC (Bld) 0 % 0 [facility] Interpretation and review of laboratory results Abnormal [facility] Lymphocytes/100 WBC (Bld) 28 % 24 - 43 % [facility] MCH (RBC) [Entitic mass] 32.1 pg 25.2 - 33.5 pg [facility] MCHC (RBC) [Mass/Vol] 33.0 g/dL 28.4 - 34.8 g/ dL [facility] MCV (RBC) [Entitic vol] 97.3 fL 82.6 - 102.9 fL [facility] Monocytes/100 WBC (Bld) 10 % 3 - 12 % [facility] NRBC Automated 0.0 0.0 per 100 WBC [facility] Platelet distribution width (Bld) [Ratio] 12.1 % 11.8 - 14.4 % [facility] Platelet mean volume (Bld) [Entitic vol] 9.9 fL 8.1 - 13.5 fL [facility] Platelets (Bld) [#/Vol] 271 10*3/uL [facility] RBC (Bld) [#/Vol] 4.08 10*6/uL 3.95 - 5.11 m/uL [facility] Segmented neutrophils/100 WBC (Bld) 53 % 36 - 65 % [facility] Segs Absolute 2.41 [facility] WBC (Bld) [#/Vol] 4.5 10*3/uL [facility] Comprehensive Metabolic Pane mauricio 12-01-2021 Albumin [Mass/Vol] 4 g/dL 3.5 - 5.2 g/dL [facility] Albumin/Globulin [Mass ratio] 1.8 {ratio} 1 - 2.5 [facility] ALP (Bld) [Catalytic activity/Vol] 83 U/L 35 - 104 U/L [facility] ALT [Catalytic activity/Vol] 15 U/L 5 - 33 U/L [facility] Anion gap [Moles/Vol] 9 mmol/L 9 - 17 mmol/L [facility] AST [Catalytic activity/Vol] 15 U/L NINF - 32 U/L [facility] Bilirubin [Mass/Vol] 0.2 mg/dL Low 0.3 - 1.2 mg/dL [facility] Calcium [Mass/Vol] 8.8 mg/dL 8.6 - 10.4 mg/dL [facility] Chloride [Moles/Vol] 107 mmol/L 98 - 107 mmol/L [facility] CO2 [Moles/Vol] 27 mmol/L 20 - 31 mmol/L [facility] S [facility] Creatinine [Mass/Vol] 0.64 mg/dL 0.5 - 0.9 mg/d L [facility] Free PSA/Total PSA [Mass fraction] 6.2 g/dL Low 6.4 - 8.3 g/dL [facility] GFR >60 60 - PINF mL/mi n [facility] GFR Non- >60 60 - PINF mL/min [facility] Glucose [Mass/Vol] 100 mg/dL High 70 - 99 mg/dL [facility] Interpretation and review of laboratory results Abnormal [facility] Potassium [Moles/Vol] 3.9 mmol/L 3.7 - 5.3 mmol /L [facility] Sodium [Moles/Vol] 143 mmol/L 135 - 144 mmol/L [facility] Urea nitrogen (BldV) [Mass/Vol] 8 mg/dL 8 - 23 mg/dL [facility] Urea nitrogen/Creatinine (Bld) [Mass ratio] 13 9 - 20 [facility] Laboratory - Chemistry and C hemistry - challengeon 12-01-2021 GFR/1.73 sq M.predicted MDRD (S/P/Bld) [Vol rate/Area] [facility] Comment on above: Average GFR for 60-6 9 years old: 85 mL/min/1.73sq m Chronic Kidney Disease: <60 mL/min/1.73sq m Kidney failure: <15 mL/min/1.73sq m eGFR calculated using average adult body mass. Additional eGFR calculator available at: http://www.[employer]/multiple_crcl_2012.htm Stage 1: Some kidney damage normal GFR Stage 2: Mild kidney damage GFR 60-89 Stage 3: Moderate kidney damage GFR 30-59 Stage 4: Severe kidney damage GFR 15-29 Stage 5: Severe kidney damage GFR <15 ESRD - chronic treatment by dialysis or transplant Lipid Panelon 12-01-2021 Cholesterol [Mass/Vol] 229 mg/dL High NINF - 200 mg/dL [facility] Comment on above: Cholesterol Guidelines: <200 Desirable 200-240 Borderline >240 Undesirable Cholesterol in HDL [Mass/Vol] 42 mg/dL 40 - PINF mg/dL [facility] Comment on above: HDL Guidelines: <40 Undesirable 40-59 Borderline >59 Desirable Cholesterol in LDL [Mass/Vol] 149 mg/dL High 0 - 130 mg/dL [facility] Comment on above: LDL Guidelines: <100 Desirable 100-129 Near to/above Desirable 130-159 Borderline >159 Undesirable Direct (measured) LDL and calculated LDL are not interchangeable tests. Cholesterol.total/Cho lesterol in HDL [Mass ratio] 5.5 {ratio} High NINF - 5 [facility] Interpretation and review of laboratory results Abnormal [facility] Triglyceride [Mass/Vol] 189 mg/dL High NINF - 150 mg/dL [facility] Comment on above: Triglyceride Guidelines: <150 Desirable 150-199 Borderline 200-499 High >499 Very high Based on AHA Guidelines for fasting triglyceride, December 2011. HUMAIRA THAKKAR [facility] HEMOGLOBINon 04-13-2021 Hemoglobin (Bld) [Mass/Vol] 14.3 g/dL Normal 12.0-16.0 [facility] Comment on above: Performed By: #### H GB #### [facility] [address] [place], [place] [address] Dr. Silvestre Bender CBC Auto Differentialon 01-24 Absolute Eos # 1.38 High [facility] Absolute Immature Granulocyte 0.00 [facility] Absolute Lymph # 0.64 Low [facility] Absolute [place] # 0.55 [facility] Basophils (Bld) [#/Vol] 0.00 10*3/uL [facility] Basophils/100 WBC (Bld) 0 % 0 - 2 % [facility] Differential Type NOT REPORTED [facility] Eosinophils/100 WBC (Bld) 15 % High 1 - 4 % [facility] Hematocrit (Bld) [Volume fraction] 46.5 % 36.3 - 47.1 % [facility] Hemoglobin.gastrointe stinal spec 1 Ql (Stl) 15.2 g/dL High 11.9 - 15.1 g/dL [facility] Immature granulocytes/100 WBC (Bld) 0 % 0 [facility] Interpretation and review of laboratory results Abnormal [facility] Lymphocytes/100 WBC (Bld) 7 % Low 24 - 43 % [facility] MCH (RBC) [Entitic mass] 32.2 pg 25.2 - 33.5 pg [facility] MCHC (RBC) [Mass/Vol] 32.7 g/dL 28.4 - 34.8 g/ dL [facility] MCV (RBC) [Entitic vol] 98.5 fL 82.6 - 102.9 fL [facility] Monocytes/100 WBC (Bld) 6 % 3 - 12 % [facility] Morphology Wicho (Bld) [Interp] Normal [facility] NRBC Automated 0.0 0.0 per 100 WBC [facility] Platelet distribution width (Bld) [Ratio] 12.0 % 11.8 - 14.4 % [facility] Platelet Estimate NOT REPORTED [facility] Platelet mean volume (Bld) [Entitic vol] 10.4 fL 8.1 - 13.5 fL [facility] Platelets (Bld) [#/Vol] 217 10*3/uL [facility] RBC (Bld) [#/Vol] 4.72 10*6/uL 3.95 - 5.11 m/uL [facility] RBC (Bld) [#/Vol] NOT REPORTED [facility] Segmented neutrophils/100 WBC (Bld) 72 % High 36 - 65 % [facility] Segs Absolute 6.63 [facility] (Bld[facility] [#/Vol] 9.2 10*3/uL [facility] WBC (Bld) [#/Vol] NOT REPORTED [facility] Comprehensive Metabolic Pane mauricio 02-10-2021 Albumin [Mass/Vol] 4.3 g/dL 3.5 - 5.2 g/dL [facility] Albumin/Globulin [Mass ratio] 1.6 {ratio} [facility] ALP (Bld) [Catalytic activity/Vol] 151 U/L High 35 - 104 U/L [facility] ALT [Catalytic activity/Vol] 45 U/L High 5 - 33 U/L [facility] Anion gap [Moles/Vol] 12 mmol/L 9 - 17 mmol/L [facility] AST [Catalytic activity/Vol] 35 U/L High <32 [facility] Bilirubin [Mass/Vol] 0.34 mg/dL 0.3 - 1.2 mg/dL [facility] Calcium [Mass/Vol] 9.7 mg/dL 8.6 - 10.4 mg/dL [facility] Chloride [Moles/Vol] 105 mmol/L 98 - 107 mmol/L [facility] CO2 [Moles/Vol] 28 mmol/L 20 - 31 mmol/L [facility] Creatinine [Mass/Vol] 0.85 mg/dL 0.50 - 0.90 mg /dL [facility] Free PSA/Total PSA [Mass fraction] 7.0 g/dL 6.4 - 8.3 g/dL [facility] GFR >60 >60 mL/min [facility] GFR Non- >60 >60 mL/min [facility] Glucose [Mass/Vol] 125 mg/dL High 70 - 99 mg/dL [facility] Interpretation and review of laboratory results Abnormal [facility] Potassium [Moles/Vol] 4.2 mmol/L 3.7 - 5.3 mmol /L [facility] Sodium [Moles/Vol] 145 mmol/L High 135 - 144 mmol/L [facility] Urea nitrogen (BldV) [Mass/Vol] 10 mg/dL 8 - 23 mg/dL [facility] Urea nitrogen/Creatinine (Bld) [Mass ratio] 12 [facility] Laboratory - Chemistry and C hemistry - challengeon 02-10-2021 GFR/1.73 sq M.predicted MDRD (S/P/Bld) [Vol rate/Area] [facility] Comment on above: Average GFR for 60-6 9 years old: 85 mL/min/1.73sq m Chronic Kidney Disease: <60 mL/min/1.73sq m Kidney failure: <15 mL/min/1.73sq m eGFR calculated using average adult body mass. Additional eGFR calculator available at: http://www.[employer]/multiple_crcl_2012.htm Stage 1: Some kidney damage normal GFR Stage 2: Mild kidney damage GFR 60-89 Stage 3: Moderate kidney damage GFR 30-59 Stage 4: Severe kidney damage GFR 15-29 Stage 5: Severe kidney damage GFR <15 ESRD - chronic treatment by dialysis or transplant Lipid Panelon 02-10-2021 Cholesterol [Mass/Vol] 182 mg/dL <200 [facility] Comment on above: Cholesterol Guidelines: <200 Desirable 200-240 Borderline >240 Undesirable Cholesterol in HDL [Mass/Vol] 57 mg/dL >40 [facility] Comment on above: HDL Guidelines: <40 Undesirable 40-59 Borderline >59 Desirable Cholesterol in LDL [Mass/Vol] 98 mg/dL 0 - 130 mg/dL [facility] Comment on above: LDL Guidelines: <100 Desirable 100-129 Near to/above Desirable 130-159 Borderline >159 Undesirable Direct (measured) LDL and calculated LDL are not interchangeable tests. Cholesterol in VLDL [Mass/Vol] NOT REPORTED 1 - 30 mg/dL [facility] Cholesterol.total/Cho lesterol in HDL [Mass ratio] 3.2 {ratio} <5 [facility] Triglyceride [Mass/Vol] 133 mg/dL <150 [facility] Comment on above: Triglyceride Guidelines: <150 Desirable 150-199 Borderline 200-499 High >499 Very high Based on AHA Guidelines for fasting triglyceride, December 2011. [facility] Vitamin B12on 02-10-2021 Cobalamin (Vitamin B12) [Mass/Vol] 957 pg/mL 232 - 1245 pg/mL [facility] CBC Auto DifferentialOrdered By: Del Baldwin on 10-11-2020 Absolute Eos # 0.43 [facility] Work Phone: Absolute Immature Granulocyte <0.03 [facility] Work Phone: Absolute Lymph # 1.50 [facility] Work Phone: Absolute [place] # 0.68 [facility] Work Phone: Basophils (Bld) [#/Vol] 0.12 10*3/uL [facility] Work Phone: Basophils/100 WBC (Bld) 2 % 0 - 2 % [facility] Work Phone: Differential Type NOT REPORTED [employer] Phone: Eosinophils/100 WBC (Bld) 6 % High 1 - 4 % [facility] Work Phone: Hematocrit (Bld) [Volume fraction] 42.0 % 36.3 - 47.1 % [facility] Work Phone: Hemoglobin.gastrointe stinal spec 1 Ql (Stl) 13.5 g/dL 11.9 - 15.1 g/dL [employer] Phone: Immature granulocytes/100 WBC (Bld) 0 % 0 [facility] Work Phone: Interpretation and review of laboratory results Abnormal [employer] Phone: Lymphocytes/100 WBC (Bld) 21 % Low 24 - 43 % [facility] Work Phone: MCH (RBC) [Entitic mass] 32.1 pg 25.2 - 33.5 pg [facility] Work Phone: MCHC (RBC) [Mass/Vol] 32.1 g/dL 28.4 - 34.8 g/ dL [employer] Phone: MCV (RBC) [Entitic vol] 100.0 fL 82.6 - 102.9 fL [employer] Phone: Monocytes/100 WBC (Bld) 10 % 3 - 12 % [facility] Work Phone: NRBC Automated 0.0 0.0 per 100 WBC [employer] Phone: Platelet distribution width (Bld) [Ratio] 13.0 % 11.8 - 14.4 % [employer] Phone: Platelet Estimate NOT REPORTED [employer] Phone: Platelet mean volume (Bld) [Entitic vol] 9.4 fL 8.1 - 13.5 fL [employer] Phone: Platelets (Bld) [#/Vol] 302 10*3/uL [employer] Phone: RBC (Bld) [#/Vol] 4.20 10*6/uL 3.95 - 5.11 m/uL [employer] Phone: RBC (Bld) [#/Vol] NOT REPORTED [employer] Phone: Segmented neutrophils/100 WBC (Bld) 61 % 36 - 65 % [employer] Phone: Segs Absolute 4.40 [facility] Work Phone: WBC (Bld) [#/Vol] 7.2 10*3/uL [employer] Phone: WBC (Bld) [#/Vol] NOT REPORTED [employer] Phone: [facility] Work Phone: FerritinOrdered By: Del Raya on 10-11-2020 [facility] 96 ug/L 13 - 150 ug/L [facility] Work Phone: Iron and TIBCOrdered By: Fran Baldwin on 07-19-2021 Iron [Mass/Vol] 112 ug/dL 37 - 145 ug/dL [facility] Work Phone: Iron Saturation 37 % 20 - 55 % [facility] Work Phone: TIBC 302 ug/dL 250 - 450 ug/dL [facility] Work Phone: UIBC 190 ug/dL 112 - 347 ug/dL [facility] Work Phone: No Panel InformationOrdered By: Del Baldwin on 10-11-2020 [facility] Work Phone: CBC Auto DifferentialOrdered By: Linette Diaz on 09-28-2020 Absolute Eos # 0.73 High [facility] Work Phone: Absolute Immature Granulocyte 0.00 [facility] Work Phone: Absolute Lymph # 0.82 Low [facility] Work Phone: Absolute [place] # 0.46 [facility] Work Phone: Basophils (Bld) [#/Vol] 0.09 10*3/uL [facility] Work Phone: Basophils/100 WBC (Bld) 1 % 0 - 2 % [facility] Work Phone: Differential Type NOT REPORTED [facility] Work Phone: Eosinophils/100 WBC (Bld) 8 % High 1 - 4 % [facility] Work Phone: Hematocrit (Bld) [Volume fraction] 45.8 % 36.3 - 47.1 % [facility] Work Phone: Hemoglobin.gastrointe stinal spec 1 Ql (Stl) 14.8 g/dL 11.9 - 15.1 g/dL [facility] Work Phone: Immature granulocytes/100 WBC (Bld) 0 % 0 [facility] Work Phone: Interpretation and review of laboratory results Abnormal [employer] Phone: Lymphocytes/100 WBC (Bld) 9 % Low 24 - 43 % [employer] Phone: MCH (RBC) [Entitic mass] 31.8 pg 25.2 - 33.5 pg [employer] Phone: MCHC (RBC) [Mass/Vol] 32.3 g/dL 28.4 - 34.8 g/ dL [employer] Phone: MCV (RBC) [Entitic vol] 98.5 fL 82.6 - 102.9 fL [employer] Phone: Monocytes/100 WBC (Bld) 5 % 3 - 12 % [employer] Phone: Morphology Wicho (Bld) [Interp] Normal [employer] Phone: NRBC Automated 0.0 0.0 per 100 WBC [employer] Phone: Platelet distribution width (Bld) [Ratio] 12.6 % 11.8 - 14.4 % [employer] Phone: Platelet Estimate NOT REPORTED [employer] Phone: Platelet mean volume (Bld) [Entitic vol] 9.6 fL 8.1 - 13.5 fL [employer] Phone: Platelets (Bld) [#/Vol] 205 10*3/uL [employer] Phone: RBC (Bld) [#/Vol] 4.65 10*6/uL 3.95 - 5.11 m/uL [employer] Phone: RBC (Bld) [#/Vol] NOT REPORTED [employer] Phone: Segmented neutrophils/100 WBC (Bld) 77 % High 36 - 65 % [employer] Phone: Segs Absolute 7.00 [facility] Work Phone: WBC (Bld) [#/Vol] 9.1 10*3/uL [facility] Work Phone: WBC (Bld) [#/Vol] NOT REPORTED [facility] Phone: [facility] Work Phone: Comprehensive Metabolic Pane lOrdered By: Linette Diaz on 09-28-2020 Albumin [Mass/Vol] 4 g/dL 3.5 - 5.2 g/dL [facility] Work Phone: Albumin/Globulin [Mass ratio] 1.3 {ratio} [facility] Phone: ALP (Bld) [Catalytic activity/Vol] 158 U/L High 35 - 104 U/L [facility] Phone: ALT [Catalytic activity/Vol] 53 U/L High 5 - 33 U/L [facility] Phone: Anion gap [Moles/Vol] 9 mmol/L 9 - 17 mmol/L [employer] Phone: AST [Catalytic activity/Vol] 29 U/L <32 [facility] Phone: Bilirubin [Mass/Vol] 0.28 mg/dL Low 0.3 - 1.2 mg/dL [facility] Phone: Calcium [Mass/Vol] 9.5 mg/dL 8.6 - 10.4 mg/dL [employer] Phone: Chloride [Moles/Vol] 102 mmol/L 98 - 107 mmol/L [facility] Phone: CO2 [Moles/Vol] 28 mmol/L 20 - 31 mmol/L [employer] Phone: Creatinine [Mass/Vol] 0.76 mg/dL 0.50 - 0.90 mg /dL [employer] Phone: Free PSA/Total PSA [Mass fraction] 7.1 g/dL 6.4 - 8.3 g/dL [facility] Phone: GFR >60 >60 mL/min [facility] [employer] Phone: GFR Non- >60 >60 mL/min [facility] Phone: Glucose [Mass/Vol] 121 mg/dL High 70 - 99 mg/dL [facility] [employer] Phone: Interpretation and review of laboratory results Abnormal [facility] Phone: Potassium [Moles/Vol] 4.4 mmol/L 3.7 - 5.3 mmol /L [facility] Phone: Sodium [Moles/Vol] 139 mmol/L 135 - 144 mmol/L [facility] Phone: Urea nitrogen (BldV) [Mass/Vol] 10 mg/dL 8 - 23 mg/dL [facility] Phone: Urea nitrogen/Creatinine (Bld) [Mass ratio] 13 [facility] Phone: [facility] Phone: Laboratory - Chemistry and C hemistry - challengeOrdered By: Linette Diaz on 09-28-2020 GFR/1.73 sq M.predicted MDRD (S/P/Bld) [Vol rate/Area] [facility] Phone: Comment on above: Average GFR for 60-6 9 years old: 85 mL/min/1.73sq m Chronic Kidney Disease: <60 mL/min/1.73sq m Kidney failure: <15 mL/min/1.73sq m eGFR calculated using average adult body mass. Additional eGFR calculator available at: http://www.[employer]/multiple_crcl_2012.htm Stage 1: Some kidney damage normal GFR Stage 2: Mild kidney damage GFR 60-89 Stage 3: Moderate kidney damage GFR 30-59 Stage 4: Severe kidney damage GFR 15-29 Stage 5: Severe kidney damage GFR <15 ESRD - chronic treatment by dialysis or transplant Lipid PanelOrdered By: Linette Diaz on 09-28-2020 Cholesterol [Mass/Vol] 154 mg/dL <200 [employer] Phone: Comment on above: Cholesterol Guidelines: <200 Desirable 200-240 Borderline >240 Undesirable Cholesterol in HDL [Mass/Vol] 48 mg/dL >40 [employer] Phone: Comment on above: HDL Guidelines: <40 Undesirable 40-59 Borderline >59 Desirable Cholesterol in LDL [Mass/Vol] 84 mg/dL 0 - 130 mg/dL [employer] Phone: Comment on above: LDL Guidelines: <100 Desirable 100-129 Near to/above Desirable 130-159 Borderline >159 Undesirable Direct (measured) LDL and calculated LDL are not interchangeable tests. Cholesterol in VLDL [Mass/Vol] NOT REPORTED 1 - 30 mg/dL [employer] Phone: Cholesterol.total/Cho lesterol in HDL [Mass ratio] 3.2 {ratio} <5 [employer] Phone: Triglyceride [Mass/Vol] 110 mg/dL <150 [employer] Phone: Comment on above: Triglyceride Guidelines: <150 Desirable 150-199 Borderline 200-499 High >499 Very high Based on AHA Guidelines for fasting triglyceride, December 2011. [employer] Phone: XR CHEST (2 VW)Ordered By: Noah Diaz on 09-28-2020 No acute cardiopulmonary findings [employer] Phone: EXAMINATION: TWO XRAY VIEWS OF THE CHEST 09/28/2020 8:31 am COMPARISON: None available HISTORY: ORDERING SYSTEM PROVIDED HISTORY: Dyspnea, unspecified type FINDINGS: Normal cardiopericardial silhouette Mild biapical capping There are no significant pleural, parenchymal, mediastinal or osseous findings [employer] Phone: Edgar, Mhpn Incoming Radiant Results From [employer] - 09/28/2020 8:41 AM EDT EXAMINATION: TWO XRAY VIEWS OF THE CHEST 09/28/2020 8:31 am COMPARISON: None available HISTORY: ORDERING SYSTEM PROVIDED HISTORY: Dyspnea, unspecified type FINDINGS: Normal cardiopericardial silhouette Mild biapical capping There are no significant pleural, parenchymal, mediastinal or osseous findings IMPRESSION: No acute cardiopulmonary findings [facility] Work Phone: [facility] Work Phone: Ferritinon 08-13-2019 Ferritin [Mass/Vol] 130 ug/L 13 - 150 ug/L [place], [place] Iron and TIBCon 08-13-2019 Iron [Mass/Vol] 87 ug/dL 37 - 145 ug/dL [place], [place] Iron Saturation 30 % 20 - 55 % [place], [place] TIBC 292 ug/dL 250 - 450 ug/dL [place] UIBC 205 ug/dL 112 - 347 ug/dL [place] Vitamin B12 & Folateon 08-12 Cobalamin (Vitamin B12) [Mass/Vol] 928 pg/mL 232 - 1245 pg/mL [place] Folate 11.2 ng/mL >4.8 [place] CBC Auto Differentialon 10-0 Basophils (Bld) [#/Vol] 0.07 10*3/uL [place] Basophils/100 WBC (Bld) 1 % 0 - 2 % [place] Differential Type NOT REPORTED [place] Eosinophils (Bld) [#/Vol] 0.56 10*3/uL High [place] Eosinophils/100 WBC (Bld) 12 % High 1 - 4 % [place] Erythrocyte distribution width (RBC) [Ratio] 12.8 % 11.8 - 14.4 % [place] Hematocrit (Bld) [Volume fraction] 42.6 % 36.3 - 47.1 % [place] Hemoglobin (Bld) [Mass/Vol] 13.5 g/dL 11.9 - 15.1 g/dL [place] Immature granulocytes (Bld) [#/Vol] 0 % 0 [place] Immature granulocytes (Bld) [#/Vol] 10*3/uL [place] Interpretation and review of laboratory results Abnormal [place] Lymphocytes (Bld) [#/Vol] 1.10 10*3/uL [place] Lymphocytes/100 WBC (Bld) 23 % Low 24 - 43 % [place] MCH (RBC) [Entitic mass] 30.8 pg 25.2 - 33.5 pg [place] MCHC (RBC) [Mass/Vol] 31.7 g/dL 28.4 - 34.8 g/ dL [place] MCV (RBC) [Entitic vol] 97.3 fL 82.6 - 102.9 fL [place] Monocytes (Bld) [#/Vol] 0.48 10*3/uL [place] Monocytes/100 WBC (Bld) 10 % 3 - 12 % [place] Platelet mean volume (Bld) [Entitic vol] 9.4 fL 8.1 - 13.5 fL [place] Platelets (Bld) [#/Vol] 233 10*3/uL [place] Platelets (Bld) [#/Vol] NOT REPORTED [place] RBC (Bld) [#/Vol] 4.38 10*6/uL 3.95 - 5.11 m/uL [place] RBC morphology finding Nom (Bld) NOT REPORTED [place] Segmented neutrophils/100 WBC (Bld) 54 % 36 - 65 % [place] Segs Absolute 2.68 [place] WBC (Bld) [#/Vol] 4.9 10*3/uL [place] WBC (Bld) [#/Vol] 0.0 10*3/uL 0.0 per 100 WBC M [place] WBC Morphology NOT REPORTED [place], [place] Comprehensive Metabolic Pane mauricio 12-26-2018 Albumin [Mass/Vol] 4.2 g/dL 3.5 - 5.2 g/dL [place] Albumin/Globulin [Mass ratio] 1.4 {ratio} [place] ALP [Catalytic activity/Vol] 112 U/L High 35 - 104 U/L [place] ALT [Catalytic activity/Vol] 39 U/L High 5 - 33 U/L [place] Anion gap [Moles/Vol] 13 mmol/L 9 - 17 mmol/L [place] AST [Catalytic activity/Vol] 25 U/L <32 [place] Bilirubin Ql (U) 0.26 mg/dL Low 0.3 - 1.2 mg/dL [place] Bun/Cre Ratio 19 [place] Calcium [Mass/Vol] 9.9 mg/dL 8.6 - 10.4 mg/dL [place] Chloride [Moles/Vol] 103 mmol/L 98 - 107 mmol/L [place] CO2 [Moles/Vol] 26 mmol/L 20 - 31 mmol/L [place] Creatinine [Mass/Vol] 0.69 mg/dL 0.5 - 0.9 mg/d L [place] GFR >60 >60 mL/min [place] GFR Non- >60 >60 mL/min [place] Glucose [Mass/Vol] 111 mg/dL High 70 - 99 mg/dL [place] Interpretation and review of laboratory results Abnormal [place] Potassium [Moles/Vol] 4.8 mmol/L 3.7 - 5.3 mmol /L [place] Protein [Mass/Vol] 7.1 g/dL 6.4 - 8.3 g/dL [place] Sodium [Moles/Vol] 142 mmol/L 135 - 144 mmol/L [place] Urea nitrogen [Mass/Vol] 13 mg/dL 8 - 23 mg/dL [place] Hemoglobin A1Con 12-26-2018 Glucose [Mass/Vol] 123 mg/dL [place] Comment on above: The ADA and AACC rec ommend providing the estimated average glucose result to permit better patient understanding of their HBA1c result. HbA1c (Bld) [Mass fraction] 5.9 % 4.8 - 5.9 % [place] Lipid Panelon 12-26-2018 Cholesterol [Mass/Vol] 159 mg/dL <200 [place] Comment on above: Cholesterol Guidelines: <200 Desirable 200-240 Borderline >240 Undesirable Cholesterol in HDL [Mass/Vol] 51 mg/dL >40 [place] Comment on above: HDL Guidelines: <40 Undesirable 40-59 Borderline >59 Desirable Cholesterol in LDL [Mass/Vol] 87 mg/dL 0 - 130 mg/dL [place] Comment on above: LDL Guidelines: <100 Desirable 100-129 Near to/above Desirable 130-159 Borderline >159 Undesirable Direct (measured) LDL and calculated LDL are not interchangeable tests. Cholesterol in VLDL [Mass/Vol] NOT REPORTED 1 - 30 mg/dL [place] Cholesterol.total/Cho lesterol in HDL [Mass ratio] 3.1 {ratio} <5 [place] Triglyceride [Mass/Vol] 105 mg/dL <150 [place] Comment on above: Triglyceride Guidelines: <150 Desirable 150-199 Borderline 200-499 High >499 Very high Based on AHA Guidelines for fasting triglyceride, December 2011. Metabolic Panelon 12-26-2018 GFR/1.73 sq M predicted among non-blacks MDRD (S/P/Bld) [Vol rate/Area] [place] Comment on above: Stage 1: Some [...] body mass. Additional eGFR calculator available at: http://www.[employer]/multiple_crcl_2012.htm CBC Auto Differentialon 10-26 Basophils (Bld) [#/Vol] 0.07 10*3/uL [place] Basophils/100 WBC (Bld) 1 % 0 - 2 % [place] Differential Type NOT REPORTED [place] Eosinophils (Bld) [#/Vol] 0.45 10*3/uL [place] Eosinophils/100 WBC (Bld) 9 % High 1 - 4 % [place] Erythrocyte distribution width (RBC) [Ratio] 19.5 % High 11.8 - 14.4 % [place] Hematocrit (Bld) [Volume fraction] 44.6 % 36.3 - 47.1 % [place] Hemoglobin (Bld) [Mass/Vol] 13.7 g/dL 11.9 - 15.1 g/dL [place] Immature granulocytes (Bld) [#/Vol] 0 % 0 [place] Immature granulocytes (Bld) [#/Vol] 10*3/uL [place] Interpretation and review of laboratory results Abnormal [place] Lymphocytes (Bld) [#/Vol] 1.14 10*3/uL [place] Lymphocytes/100 WBC (Bld) 22 % Low 24 - 43 % [place] MCH (RBC) [Entitic mass] 29.5 pg 25.2 - 33.5 pg [place] MCHC (RBC) [Mass/Vol] 30.7 g/dL 28.4 - 34.8 g/ dL [place] MCV (RBC) [Entitic vol] 95.9 fL 82.6 - 102.9 fL [place] Monocytes (Bld) [#/Vol] 0.46 10*3/uL [place] Monocytes/100 WBC (Bld) 9 % 3 - 12 % [place] Platelet mean volume (Bld) [Entitic vol] 9.1 fL 8.1 - 13.5 fL [place] Platelets (Bld) [#/Vol] NOT REPORTED [place] Platelets (Bld) [#/Vol] 235 10*3/uL [place] RBC (Bld) [#/Vol] 4.65 10*6/uL 3.95 - 5.11 m/uL [place] RBC morphology finding Nom (Bld) NOT REPORTED [place] Segmented neutrophils/100 WBC (Bld) 59 % 36 - 65 % [place] Segs Absolute 3.18 [place] WBC (Bld) [#/Vol] 0.0 10*3/uL 0.0 per 100 WBC M [place] WBC (Bld) [#/Vol] 5.3 10*3/uL [place] WBC Morphology NOT REPORTED [place] Ferritinon 11-22-2018 Ferritin [Mass/Vol] 224 ug/L High 13 - 150 ug/L [place] Interpretation and review of laboratory results Abnormal [place] Iron and TIBCon 11-22-2018 Iron [Mass/Vol] 122 ug/dL 37 - 145 ug/dL [place] Iron Saturation 36 % 20 - 55 % [place] TIBC 337 ug/dL 250 - 450 ug/dL [place] UIBC 215 ug/dL 112 - 347 ug/dL [place] Vitamin B12 & Folateon 11-22 Cobalamin (Vitamin B12) [Mass/Vol] 782 pg/mL 232 - 1245 pg/mL [place] Folate 10.5 ng/mL >4.8 [place] Vital Signs Date Time Vital Sign Value Performing Clinician Facility 12-17-2023 10:38-0400 Body height 157.48 cm [facility] 12-17-2023 10:38-0400 Body mass index (BMI) [Ratio] 21.5 kg/m2 [facility] 12-17-2023 10:38-0400 Body weight 53.52 kg [facility] 12-17-2023 10:38-0400 Diastolic blood pressure 86 mm[Hg] [facility] 12-17-2023 10:38-0400 Heart rate 99 /min [facility] 12-17-2023 10:38-0400 Systolic blood pressure 138 mm[Hg] [facility] 12-14-2023 14:04-0400 Body temperature 98.2 [degF] [facility] 02 [facility] [employer] 12-14-2023 14:04-0400 Diastolic blood pressure 68 mm[Hg] [facility] 02 [facility] [employer] 12-14-2023 14:04-0400 Heart rate 109 /min [facility] 02 [facility] [employer] 12-14-2023 14:04-0400 Respiratory rate 16 /min [facility] 02 [facility] [employer] 12-14-2023 14:04-0400 Systolic blood pressure 127 mm[Hg] [facility] 02 [facility] [employer] 12-12-2023 10:08-0400 SaO2% (BldA) [Mass fraction] 97 % Andre Colin MD Work Phone: [facility] [employer] 12-12-2023 06:49-0400 Body temperature 96.49 [degF] Andre Colin MD Work Phone: [facility] [employer] 12-12-2023 06:49-0400 Diastolic blood pressure 72 mm[Hg] Andre Colin MD Work Phone: [facility] [employer] 12-12-2023 06:49-0400 Heart rate 95 /min Andre Colin MD Work Phone: [facility] [employer] 12-12-2023 06:49-0400 Respiratory rate 16 /min Andre Colin MD Work Phone: [facility] [employer] 12-12-2023 06:49-0400 Systolic blood pressure 149 mm[Hg] Andre Colin MD Work Phone: [facility] [employer] 12-12-2023 03:02-0400 Body mass index (BMI) [Ratio] 21.57 kg/m2 Andre Colin MD Work Phone: [facility] [employer] 12-12-2023 03:02-0400 Body weight 53.5 kg Andre Colin MD Work Phone: [facility] [employer] 12-10-2023 12:49-0400 Body height 157.5 cm Andre Colin MD Work Phone: [facility] 11-30-2023 [id number] Body height 157.48 cm [facility] 11-30-2023 10:26-0400 Body mass index (BMI) [Ratio] 21.7 kg/m2 [facility] 11-30-2023 10:26-0400 Body weight 53.97 kg [facility] 11-30-2023 10:26-0400 Diastolic blood pressure 69 mm[Hg] [facility] 11-30-2023 10:26-0400 Heart rate 105 /min [facility] 11-30-2023 10:26-0400 Systolic blood pressure 109 mm[Hg] [facility] 09-05-2023 10:24-0400 Body height 157.48 cm [facility] 09-05-2023 10:24-0400 Body mass index (BMI) [Ratio] 22.3 kg/m2 [facility] 09-05-2023 10:24-0400 Body weight 55.33 kg [facility] 09-05-2023 10:24-0400 Diastolic blood pressure 77 mm[Hg] [facility] 09-05-2023 10:24-0400 Heart rate 112 /min [facility] 09-05-2023 10:24-0400 Systolic blood pressure 118 mm[Hg] [facility] 08-21-2023 17:26-0400 Heart rate 92 /min Russ Swade DO Work Phone: [facility] 08-21-2023 17:26-0400 Respiratory rate 18 /min Russ Swade DO Work Phone: [facility] [employer] 08-21-2023 17:26-0400 SaO2% (BldA) [Mass fraction] 94 % Russ Swade DO Work Phone: [employer] 08-21-2023 17:11-0400 Diastolic blood pressure 70 mm[Hg] Russ Swade DO Work Phone: [facility] [employer] 08-21-2023 17:11-0400 Systolic blood pressure 112 mm[Hg] Russ Swade DO Work Phone: [employer] 08-21-2023 15:34-0400 Body height 157.5 cm Russ Swade DO Work Phone: [employer] 08-21-2023 15:34-0400 Body mass index (BMI) [Ratio] 22.86 kg/m2 Russ Swade DO Work Phone: [employer] 08-21-2023 15:34-0400 Body temperature 98.6 [degF] Russ Swade DO Work Phone: [employer] 08-21-2023 15:34-0400 Body weight 56.7 kg Russ Swade DO Work Phone: [employer] Encounters Encounter Date Encounter Type Care Provider Facility Start: 12-17-2023 End: 12-17-2023 ambulatory [facility] Start: 12-17-2023 End: 12-17-2023 ambulatory [facility] Work Phone: Start: 12-17-2023 End: 12-17-2023 Patient encounter procedure [facility] Work Phone: Start: 12-16-2023 End: 12-16-2023 ambulatory [facility] Start: 12-15-2023 End: 12-15-2023 ambulatory [facility]ICK [facility] Start: 12-14-2023 End: 12-14-2023 ambulatory [facility]ICK [facility] Start: 12-14-2023 End: 12-14-2023 Subsequent hospital visit by physician [facility] Op Treatment Rm 02 [facility] (MOB) Comment on above: Salmonella bacteremi a (Primary Dx); Salmonella food poisoning Start: 12-13-2023 End: 12-13-2023 ambulatory RICK AMIN [facility] Start: 12-09-2023 End: 12-12-2023 Evaluation and management of inpatient Andre Colin MD Work Phone: [facility] Comment on above: Septicemia (HCC) (Pr imary Dx); TABITHA (acute kidney injury) (HCC); Diarrhea, unspecified type; Dehydration; Salmonella food poisoning; Salmonella bacteremia Start: 11-30-2023 End: 11-30-2023 ambulatory [facility] Work Phone: Start: 11-30-2023 End: 11-30-2023 Patient encounter procedure [facility] Work Phone: Start: 10-09-2023 End: 10-11-2023 ambulatory RICK AMIN [facility] Start: 10-09-2023 End: 10-11-2023 Subsequent hospital visit by physician Charley Cath [facility] Comment on above: Iron deficiency anem ia secondary to inadequate dietary iron intake Fracture Start: 10-02-2023 End: 10-04-2023 Subsequent hospital visit by physician Charley Nuclear Room [facility] [employer] [facility] Comment on above: Arrived Start: 10-02-2023 End: 10-04-2023 ambulatory RICK AMIN [facility] Start: 10-01-2023 End: 10-03-2023 ambulatory RICK AMIN [facility] Start: 10-01-2023 End: 10-03-2023 Subsequent hospital visit by physician [facility] Comment on above: Lightheadedness; Dizziness; Palpitations; SOB (shortness of breath); Abnormal EKG; Former smoker; Family history of premature CAD Start: 09-25-2023 End: 09-27-2023 ambulatory RICK AMIN [facility] Start: 09-25-2023 End: 09-27-2023 Subsequent hospital visit by physician [facility]ley Chef [facility] Comment on above: Lightheadedness; Dizziness; Palpitations; SOB (shortness of breath); Abnormal EKG; Former smoker; Family history of premature CAD Start: 09-19-2023 End: 09-21-2023 ambulatory RICK AMIN [facility] Start: 09-17-2023 End: 09-19-2023 Subsequent hospital visit by physician Charley Xr Room 2 [facility] Radiology Comment on above: Fractures Start: 09-17-2023 End: 09-19-2023 ambulatory RICK AMIN [facility] Start: 09-05-2023 End: 09-05-2023 ambulatory [facility] Work Phone: Start: 09-05-2023 End: 09-05-2023 Patient encounter procedure [facility] Physician [facility] Work Phone: Start: 08-21-2023 End: 08-21-2023 Emergency department patient visit Russ Manning DO Work Phone: [facility] ED Comment on above: Fall, initial encoun ter (Primary Dx); Closed fracture of left ankle, initial encounter; Dehydration; Lightheadedness; Closed fracture of metatarsal bone of left foot, physeal involvement unspecified, unspecified metatarsal, initial encounter Start: 07-13-2023 End: 07-13-2023 ambulatory LINETTE DIAZ [facility] Start: 02-27-2023 End: 02-27-[address] [facility] Start: 02-25-2023 ambulatory [facility] Start: 10-06-2022 End: 10-06-2022 Subsequent hospital visit by physician Linette Diaz DO Work Phone: [facility] Laboratory Comment on above: Iron deficiency anem ia secondary to inadequate dietary iron intake; Microcytic anemia Start: 05-10-2022 End: 05-12-2022 Subsequent hospital visit by physician Charley [employer] [facility] EKG Comment on above: Tachycardia, unspeci fied Abnormal results of liver function studies Start: 05-02-2022 End: 05-02-2022 Subsequent hospital visit by physician Linette Diaz DO Work Phone: [facility] Start: 04-28-2022 End: 04-28-2022 Subsequent hospital visit by physician [facility] Start: 12-01-2021 End: 12-01-2021 Subsequent hospital visit by physician Linette Diaz DO Work Phone: [facility] Laboratory Start: 04-13-2021 End: 04-14-2021 ambulatory BERLIN DERAS Facility:H1 Start: 02-10-2021 End: 02-10-2021 Subsequent hospital visit by physician Linette Diaz DO Work Phone: [facility] Laboratory Start: 10-11-2020 End: 10-11-2020 Subsequent hospital visit by physician Linette [facility] DO [facility] Comment on above: Iron deficiency anem ia secondary to inadequate dietary iron intake; Other specified intestinal malabsorption Start: 09-28-2020 End: 09-30-2020 Subsequent hospital visit by physician Charley [address] Dr [facility] Comment on above: Dyspnea, unspecified type Start: 06-16-2020 End: 06-16-2020 Patient encounter procedure Amena Sanabria Work Phone: [facility] Work Phone: Start: 08-13-2019 End: 08-13-2019 Subsequent hospital visit by physician Linette RO[facility] Laboratory Comment on above: Microcytic anemia Start: 12-26-2018 End: 12-26-2018 Subsequent hospital visit by physician Linette RO[facility] Laboratory Start: 11-22-2018 End: 11-22-2018 Subsequent hospital visit by physician Linette [facility] Laboratory Comment on above: Microcytic anemia Procedures Date Procedure Procedure Detail Performing Clinician Start: 12-12-2023 Assay of magnesium Nghia n L Mey VRT MECHANIC - ANIMAL BEHAVIORIST Work Phone: Start: 12-11-2023 Assay of lactate Bozena L Mey VRT MECHANIC - ANIMAL BEHAVIORIST Work Phone: Start: 12-10-2023 Ct abdomen & pelvis w/o contrast material Bozena L Mey VRT MECHANIC - ANIMAL BEHAVIORIST Work Phone: Start: 12-10-2023 End: 12-11-2023 Rhythm ecg 1-3 leads w/interpretation & report Unknown Provider Result Start: 12-10-2023 Blood count complete auto&auto difrntl wbc Bozena L Mey VRT MECHANIC - ANIMAL BEHAVIORIST Work Phone: Start: 12-10-2023 Iadna-dna/rna gi pth gn multiplex probe tq 12-25 Bozena Jordan Becerran VRT MECHANIC - ANIMAL BEHAVIORIST Work Phone: Start: 12-10-2023 Assay of lactate Pako Quintero MD Work Phone: Start: 12-09-2023 End: 12-10-2023 Culture bacterial quanttative colony count urine Adal Quintero MD Work Phone: Start: 12-09-2023 Urnls dip stick/tabl et rgnt auto w/o microscopy Adal Quintero MD Work Phone: Start: 12-09-2023 CULTURE, BLOOD 1 Pako Quintero MD Work Phone: Start: 12-09-2023 Assay of lactate Pako Quintero MD Work Phone: Start: 12-09-2023 COVID-19, RAPID Ninoska Quintero MD Work Phone: Start: 12-09-2023 Ct head/brain w/o co ntrast material Adal Quintero MD Work Phone: Start: 12-09-2023 End: 12-09-2023 Ct cervical spine w/o contrast material Adal Quintero MD Work Phone: Start: 12-09-2023 Radiologic exam ches t single view Andre Colin MD Work Phone: Start: 12-09-2023 End: 12-09-2023 Comprehensive metabolic panel Andre Colin MD Work Phone: Start: 12-09-2023 Ecg routine ecg w/le ast 12 lds i&r only Andre Colin MD Work Phone: Start: 10-09-2023 End: 10-09-2023 Radex foot complete minimum 3 views Jose Angel Gonzalez DPM Work Phone: Start: 10-09-2023 Assay of ferritin Del Baldwin MD Work Phone: Start: 10-02-2023 Myocardial spect mul tiple studies Monique Paz MD Work Phone: Start: 09-17-2023 Radex foot complete minimum 3 views Jose Angel Gonzalez DPM Work Phone: Start: 08-21-2023 Radiologic exam ches t single view Russ Manning DO Work Phone: Start: 08-21-2023 End: 08-21-2023 Radex ankle complete minimum 3 views Jorge Sanford MD Start: 08-21-2023 Comprehensive metabo lic panel Russ Dorantesade DO Work Phone: Start: 10-06-2022 Assay of ferritin Del Baldwin MD Work Phone: Start: 05-10-2022 Ecg routine ecg w/le ast 12 lds w/i&r Linette Goodrichse DO Work Phone: Start: 05-10-2022 Us abdominal real ti me w/image limited Linette Diaz DO Work Phone: Start: 05-02-2022 Iaadiadoo influenza Andra tompkins P Samsa DO Work Phone: Start: 04-28-2022 Comprehensive metabo lic panel Linette Goodrichse DO Work Phone: Start: 04-28-2022 Lipid panel Linette Li sse DO Work Phone: Start: 12-01-2021 Comprehensive metabo lic panel Linette Tran Joe DO Work Phone: Start: 12-01-2021 Lipid panel Linette Tran Guillermo sse DO Work Phone: Start: 02-10-2021 Comprehensive metabo lic panel Linette Tran Joe DO Work Phone: Start: 02-10-2021 Lipid panel Linette Tran Guillermo sse DO Work Phone: Start: 10-11-2020 Assay of ferritin Del Baldwin MD Work Phone: Start: 09-28-2020 Radiologic exam ches t 2 views Linette Diaz DO Work Phone: Start: 09-28-2020 Comprehensive metabo lic panel Linette Diaz DO Work Phone: Start: 09-28-2020 Lipid panel Linette munguia DO Work Phone: Start: 06-16-2020 Imm. administration COVID19 [employer] Work Phone: Start: 06-16-2020 SARS-CoV-2 vaccine, 0.5ml [employer] Work Phone: Start: 08-13-2019 Assay of ferritin Adnan R Al-Anaya Work Phone: Start: 08-13-2019 Iron binding capacity A dnan R Al-Anaya Work Phone: Start: 08-13-2019 VITAMIN B12 & FOLATE Ad nan R Al-Anaya Work Phone: Start: 12-26-2018 Blood count complete auto&auto difrntl wbc Linette Diaz Work Phone: Start: 12-26-2018 Comprehensive metabo lic panel Linette Diaz Work Phone: Start: 12-26-2018 Lipid panel Linette munguia Work Phone: Start: 12-26-2018 Hemoglobin glycosylated a1c Krystian Massey Work Phone: Start: 11-22-2018 Assay of ferritin Adnan R Al-Anaya Work Phone: Start: 11-22-2018 Blood count complete auto&auto difrntl wbc Adnan R Al-Anaya Work Phone: Start: 11-22-2018 Iron binding capacity A dnan R Al-Anaya Work Phone: Start: 11-22-2018 VITAMIN B12 & FOLATE Ad nan R Al-Anaya Work Phone: Start: 11-01-2010 Colonoscopy Linette figueroa DO Work Phone: Plan of Treatment Date Care Activity Detail Author Start: 07-12-2028 [facility] Start: 01-11-2024 End: 01-11-2024 Patient encounter procedure 01/11/2024 10:20 AM EDT Office Visit [facility] [address] [phone] Monique Paz MD [address] [place] [phone] 3 month [facility] Comment on above: 3 month Start: 12-17-2023 End: 12-11-2024 Basic metabolic 2000 panel - Serum or Plasma Basic Metabolic Panel Lab Routine Septicemia (HCC) Expected: 12/17/2023, Expires: 12/11/2024 [facility] Comment on above: Expected: 12/17/2023, Expires: Start: 12-17-2023 End: 12-11-2024 CBC W Auto Differential panel - Blood CBC with Auto Differential Lab Routine Septicemia (HCC) Expected: 12/17/2023, Expires: 12/11/2024 [facility] Comment on above: Expected: 12/17/2023, Expires: Start: 12-16-2023 End: 12-16-2023 Patient encounter procedure 12/16/2023 2:[address] [facility] (MOB) [address] [place], [place] [phone] Rocephin. Bridget Hall APRN-TIARA [facility] ([facility]) Comment on above: TY Sevilla P Start: 12-15-2023 End: 12-15-2023 Patient encounter procedure 12/15/2023 2:[address] [facility] (MOB) [address] [place], [place] [phone] SALOME Sevilla [facility] ([facility]) Comment on above: Rocephin. LIA HartCN P Start: 12-14-2023 End: 12-14-2023 Patient encounter procedure 12/14/2023 2:[address] [facility] ([facility] [address] [place], [place] [phone] Rocephin. Bridget Hall APRN-TIARA [facility] ([facility]) Comment on above: Rocephin. Bridget Hall APRN-CN P Start: 12-13-2023 End: 12-13-2023 Patient encounter procedure 12/13/2023 2:[address] [facility] ([facility] [address] [place] [address] [facility] ([facility]) Comment on above: Rocbrandynhin. TY Hart P Start: 11-25-2023 COVID-19 Vaccine ( season) COVID-19 Vaccine ( season) [facility] Start: 10-25-2023 Influenza vaccination Flu vaccine (#1) [facility] Start: 10-17-2023 End: 10-17-2023 Patient encounter procedure 10/17/2023 11:30 AM EDT Office Visit [facility] [place] [phone] Del Baldwin MD [address] [place], [place] [phone] [facility] Part of [facility] Comment on above: anemia Start: 10-03-2023 End: 10-03-2023 Patient encounter procedure 10/03/2023 1:40 PM EDT Office Visit [facility] Part of [address] [phone] Monique Paz MD [address] [place] [phone] 1 week [facility] Comment on above: 1 week Start: 10-02-2023 End: 10-02-2023 Patient encounter procedure [facility] Medicine Comment on above: STAT ADD ON Start: 10-01-2023 End: 10-01-2023 Patient encounter procedure [facility] Non-Invasive Cardiology Comment on above: STAT ADD ON Start: 09-25-2023 End: 09-25-2023 Patient encounter procedure 09/25/2023 9:40 AM EDT Office Visit [facility] [address] [phone] Monique Paz MD [address] [place] [phone] 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 [facility] Comment on above: 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 Start: 09-22-2023 Lipid panel Lipids [facility] Start: 07-27-2023 Lipid screen Lipid screen [facility] [place] Start: 04-28-2023 Lipid panel Lipids [facility] Start: 02-19-2023 Annual Wellness Visit (Medicare) Annual Wellness Visit (Medicare) [facility] Start: 12-01-2022 Lipid panel Lipids [facility] Start: 11-24-2022 COVID-19 Vaccine ( season) COVID-19 Vaccine ( season) [facility] Start: 10-24-2022 Influenza vaccination Flu vaccine (#1) [facility] Start: 10-12-2022 End: 10-12-2022 Patient encounter procedure 10/12/2022 Office Visit Gastroenterology Shelia Lomeli MD [address] [place] [id number] [facility] Start: 10-11-2022 End: 10-11-2022 Patient encounter procedure 10/11/2022 Office Visit Oncology Del Baldwin MD [address], [place] [address] [facility] Start: 07-05-2022 Lipid panel Lipids [facility] Start: 03-16-2022 Hemoglobin A1c measurement A1C test (Diabetic or Prediabetic) [facility] Start: 12-16-2021 COVID-19 Vaccine (3 - Booster for Ha series) COVID-19 Vaccine (3 - Booster for Ha series) [facility] Start: 11-24-2021 Influenza vaccination Flu vaccine (#1) [facility] Start: 10-24-2021 Influenza vaccination Flu vaccine (#1) [facility] Start: 10-12-2021 End: 10-12-2021 Patient encounter procedure 10/12/2021 Office Visit Oncology Del Baldwin MD [address] [place] [address] [facility] Start: 10-10-2021 COVID-19 Vaccine (3 - Booster for Ha series) COVID-19 Vaccine (3 - Booster for Ha series) [facility] Start: 09-28-2021 Lipid panel Lipid screen [facility] Start: 02-14-2021 End: 02-14-2021 Patient encounter procedure 02/14/2021 Office Visit Pulmonology Manuel Galo MD [address] [address] [facility] Start: 01-24-2021 Annual Wellness Visit (AWV) Annual Wellness Visit (AWV) [facility] Start: 11-24-2020 Influenza vaccination Flu vaccine (#1) [facility] Start: 11-01-2020 Colon cancer screen colonoscopy Colon cancer screen colonoscopy [place], [place] Start: 11-01-2020 Screening for malignant neoplasm of colon [facility] Start: 10-21-2020 Pneumococcal 65+ years Vaccine (1 of 1 - PPSV23) Pneumococcal 65+ years Vaccine (1 of 1 - PPSV23) [facility] Start: 10-13-2020 End: 10-13-2020 Patient encounter procedure 10/13/2020 Office Visit Oncology Del Baldwin MD [address] [place] [address] [facility] Start: 08-11-2020 COVID-19 Vaccine (2 - Booster for Ha series) COVID-19 Vaccine (2 - Booster for Ha series) [facility] Start: 12-27-2019 A1C test (Diabetic or Prediabetic) A1C test (Diabetic or Prediabetic) [place] Start: 12-27-2019 HbA1c (Bld) [Mass fraction] A1C test (Diabetic or Prediabetic) [place] Start: 12-27-2019 Hemoglobin A1c measurement A1C test (Diabetic or Prediabetic) [facility] Start: 12-27-2019 Lipid panel Lipid screen [place] Start: 12-27-2019 Lipid screen Lipid screen [place] Start: 11-25-2019 Influenza vaccination Flu vaccine (Season Ended) [place] Start: 08-20-2019 End: 08-20-2019 Office Visit 08/20/2019 Office Visit Oncology Del Baldwin MD [address] [place] [address] [facility] Start: 06-06-2019 End: 06-06-2019 Office Visit 06/06/2019 Office Visit Oncology Clint Grossman MD [address] [address] [phone] [facility] Start: 11-29-2018 End: 11-29-2018 Office Visit 11/29/2018 Office Visit Oncology Del Baldwin MD [address] [address] [phone] [facility] Start: 11-24-2018 Influenza vaccination Flu vaccine (#1) [place] Start: 10-21-2018 Annual Wellness Visit (AWV) Annual Wellness Visit (AWV) [place] Start: 09-10-2018 Annual Wellness Visit (AWV) Annual Wellness Visit (AWV) [place] Start: 10-21-2010 Screening for osteoporosis DEXA (modify frequency per FRAX score) [facility] Start: 10-21-2005 Breast cancer screen Breast cancer screen [place], [place] Start: 10-21-2005 Screening for malignant neoplasm of breast Breast cancer screen [facility] Start: 10-21-2005 Shingles Vaccine (1 of 2) Shingles Vaccine (1 of 2) [facility] Start: 10-21-2000 Screening for malignant neoplasm of colon [facility] Start: 1995 Screening for malignant neoplasm of breast Breast cancer screen [facility] Start: 10-21-1976 Cervical cancer screen Cervical cancer screen [place] Start: 10-21-1976 Screening for malignant neoplasm of cervix Cervical cancer screen [place] Start: 10-21-1974 DTaP/Tdap/Td vaccine (1 - Tdap) DTaP/Tdap/Td vaccine (1 - Tdap) [facility] Start: 10-21-1973 Hepatitis C screening [facility]atitis [facility] Start: 1967 Depression Screen Depression Screen [facility] Start: 1955 Annual Wellness Visit (AWV) Annual Wellness Visit (AWV) [facility] Start: 1955 Hepatitis C screen Hepatitis C screen [place], [place] Start: 1955 Hepatitis C screening Hepatitis C screen [facility] End: 12-14-2023 CBC W Auto Differential panel - Blood CBC auto differential Lab Routine Daily for 5 Days starting 12/10/2023 until 12/14/2023, 3 completed [facility] Comment on above: Daily for 5 Days starting 12/10/2023 unt il 12/14/2023, 3 completed End: 12-14-2023 Comprehensive Metabolic Panel w/ Reflex to MG Comprehensive Metabolic Panel w/ Reflex to MG Lab Routine Daily for 5 Days starting 12/10/2023 until 12/14/2023, 3 completed [facility] Comment on above: Daily for 5 Days starting 12/10/2023 unt il 12/14/2023, 3 completed End: 05-02-2022 COVID-19 [employer] Work Phone: Comment on above: Once for 1 Occurrences starting 05/02/19 23 until 05/02/2022 DXA Skeletal system.axial Views for bone density [facility] End: 09-25-2023 Extended cardiac holter monitor (3 days-14 day) [facility] Work Phone: Comment on above: 1 Occurrences starting 09/25/2023 until 09/25/2023 End: 12-11-2023 ORGANISM ID W/ SENSI [employer] [facility] [facility] Work Phone: Comment on above: Once for 1 Occurrences starting 12/11/19 until 12/11/2023 Oxygen therapy [Minimum Data Set] Initiate Oxygen Therapy Protocol Respiratory Care Routine Daily until discontinued starting 12/10/2023 [facility] Comment on above: Daily until discontinued starting 2023 End: 08-21-2023 Splint application Splint application Procedures Routine One Time for 1 Occurrences starting 08/21/2023 until 08/21/2023 [facility] Comment on above: One Time for 1 Occurrences starting 07/25 until 08/21/2023 US Upper extremity artery - left [facility] Immunizations Immunization Date Immunization Notes Care Provider Ramin khoury 06-16-2020 [employer] COVID 19 Vaccine [facility] Work Phone: Comment on above: Note: Patient tolera moise well. No signs or symptoms of adverse reactions. Patient waited a minimum of 15 minutes. Payers Date Payer Category Payer Medicare BCBS MEDICARE AN THEM MEDIBLUE ESSENTIAL/PLUS xxxxxxxxxxxx 2019-Present [address] [address] [place] [address] xxxxxxxxxxxx [id number] 2019 Unknown 1 - [place] [employer] are Advantage [id number] [id number] .[id number] 2018 Medicare SUMMACARE-MEDICA ADVANTAGE SUMMACARE-MEDICARE ADVANTAGE xxxxxxxxxxx 2018-Present [phone] [address] [place] [address] xxxxxxxxxxx [id number] .[id number] 1959 Medicare [id number] .[id number] 1959 Private Health Insurance [id number] 1.2.840.067501.1.13.239.2 .7.3.304816.315 1955 Unknown [id number] 2.16.840.1.844072.3.579.2 .593 1955 Unknown [id number] 2.16.840.1.893703.3.579.2 .173 1955 Unknown [id number] 2.16.840.1.680275.3.579.2 .173 1955 Unknown [id number] 2.16.840.1.983128.3.579.2 .173 1955 Unknown [id number] 2.16.840.1.854427.3.579.2 .173 1955 Unknown [id number] 2.16.840.1.865801.3.579.2 .173 1955 Unknown [id number] 2.16.840.1.324131.3.579.2 .173 1955 Unknown [id number] 2.16.840.1.468654.3.579.2 .173 1955 Unknown [id number] 2.16.840.1.232461.3.579.2 .173 1955 Unknown [id number] 2.16.840.1.551480.3.579.2 .173 1955 Unknown [id number] 2.16.840.1.944182.3.579.2 .173 1955 Unknown [id number] 2.16.840.1.763074.3.579.2 .173 1955 Unknown [id number] 2.16.840.1.238880.3.579.2 .173 1955 Unknown [id number] 2.16.840.1.416382.3.579.2 .173 1955 Unknown [id number] 2.16.840.1.830452.3.579.2 .173 1955 Unknown [id number] 2.16.840.1.730379.3.579.2 .173 1955 Unknown [id number] 2.16.840.1.180920.3.579.2 .173 1955 Unknown [id number] 2.16.840.1.782831.3.579.2 .173 1955 Unknown [id number] 2.16.840.1.347475.3.579.2 .173 1955 Unknown [id number] 2.16.840.1.701024.3.579.2 .173 1955 Unknown [id number] 2.16.840.1.574091.3.579.2 .173 1955 Unknown [id number] 2.16.840.1.006678.3.579.2 .173 1955 Unknown [id number] 2.16.840.1.210979.3.579.2 .173 1955 Unknown [id number] 2.16.840.1.266185.3.579.2 .173 1955 Unknown [id number] 2.16.840.1.551569.3.579.2 .173 Medicare Medicare [id number] Social History Date Type Detail Facility Start: 09-06-2018 End: 09-05-2023 Tobacco smoking status NHIS Former smoker [facility] Start: 09-06-2018 End: 12-13-2023 Alcohol intake No [facility] Start: 1955 Sex Assigned At Not on file [facility] [place] Start: 11-29-2018 End: 12-11-2023 Alcohol intake Current non-drinker of alcohol (finding) [facility] [place] Tobacco smoking status Unknown i f ever smoked [facility] Work Phone: Start: 04-08-2020 End: 08-21-2023 Tobacco use and exposure Never used [facility] Start: 09-24-1975 End: 11-24-2009 History of tobacco use Current smoker [facility] [employer] Work Phone: Start: 09-24-1975 End: 11-24-2009 History of tobacco use Cigarette Smoker [facility] [employer] Start: 02-25-2023 End: 12-13-2023 History of Social function [facility] Android [employer] Review Source [facility] Has the [employer], [employer], or water [employer] threatened to shut off services in your home in past 12Mo No [facility] (I/We) worried whekelly er (my/our) food would run out before (I/we) got money to buy more. Never true [facility] In the past 12 month s, has lack of transportation kept you from medical appointments or from getting medications? No [facility] Start: 1955 Sex Assigned At Female F [facility] How often to you hav e a drink containing alcohol? Never [facility] [employer] Medical Equipment Procedure Code Equipment Code Equipment Origin al Text Equipment Identifier Dates Insulin Syringe-Needle U-100 (Bd Insulin Syringe Ultra-Fine) 0.3 mL 30 gauge x 1/2 syringe Start: 09-17-2023 End: 09-18-2023 Insulin Syringe-Needle U-100 (Bd Insulin Syringe Ultra-Fine) 0.3 mL 30 gauge x 1/2 syringe Start: 09-17-2023 End: 09-18-2023 Clinical Notes 05-10-2022 to 12-14-2023 Discharge InstructionsKayce Sanford RN - 12/12/2023 3:44 PM EDKayce Gottlieb RN - 12/12/2023 10:01 AM Kayce Verdugo RN - 12/12/2023 8:26 AM Kayce Verdugo RN - 12/12/2023 8:22 AM EDT Note Date & Type Note Facility 12-14-2023 Hospital Discharge instructions Kamala Chew RN - 12/14/2023 2:06 PM EDT Verbally reviewed discharge instructions for care and follow up. Previous print out of these instructions were given with prior treatment.Patient verbalized understanding of these instructions. Today's copy offered and declined. documented in this encounter [facility] 12-12-2023 History of Present illness Narrative Discharge instructions reviewed with patient. Peripheral IV's have been removed as well as telemetry. Midline to remain in place at discharge for o/p ATB administration. Care instructions reviewed with patient on care of line and dressing. Will transport home via private vehicle with spouse. black mill operator called for midline placement. Will return call for ETA ETA is 12:30 pm Per patient she does not take sertraline at home. Medication was not administered per patient request. Bridget GARCIA notified of AM potassium level via lab draw Score Caller at bedside to complete evening assessment. Upon entry to room, pt awake and in bed, respirations normal and unlabored while on room air. Vitals obtained and assessment completed, see flow sheet for details. Pt denies needs from food writer at this time. Call light in reach. Care is ongoing. Physical Therapy Facility/Department: [facility] Daily Treatment Note NAME: Natasha Beauchamp : 1955 Date of Service: 12/11/2023 Discharge Recommendations: Continue to assess pending progress, Outpatient PT, Home independently Patient Diagnosis(es): The primary encounter diagnosis was Septicemia (HCC). Diagnoses of TABITHA (acute kidney injury) ([facility]), Diarrhea, unspecified type, and Dehydration were also pertinent to this visit. Assessment Assessment: Pt. ambulated 20ftx4, 342niu3 with management of IV pole and CGA/SBA for safety. Demoes slow cadance and decreased BLE step length. No LOB noted. Commode use and transfer with hand hygiene at sink side-SUP. Bed mobility/Transfers:SBA. Pt. completed supine BLE therex x15 in all available planes of motion. Activity Tolerance: Patient limited by fatigue;Patient limited by endurance Plan Physical Therapy Plan General Plan: 2 times a day 7 days a week Specific Instructions for Next Treatment: 1x/ daily on weekends and holidays Current Treatment Recommendations: Strengthening;Balance training;Functional mobility training;Transfer training;Endurance training;Neuromuscular re-education;Stair training;Gait training;Home exercise program;Patient/Caregiver education & training;Therapeutic activities Restrictions Restrictions/Precautions Restrictions/Precautions: General Precautions, Fall Risk Subjective Subjective Subjective: Pt. in bed upon arrival, family present, agreeable to therapy at this time Pain: denies Orientation Overall Orientation Status: Within Normal Limits Cognition Overall Cognitive Status: WNL Objective Bed Mobility Training Bed Mobility Training: Yes Overall Level of Assistance: Stand-by assistance;Assist X1;Additional time Interventions: Safety awareness training;Verbal cues Supine to Sit: Stand-by assistance;Assist X1;Additional time Sit to Supine: Stand-by assistance;Additional time;Assist X1 Scooting: Stand-by assistance;Assist X1;Additional time Balance Sitting: Intact Standing: Impaired Standing - Static: Good Standing - Dynamic: Good;Fair Transfer Training Transfer Training: Yes Overall Level of Assistance: Stand-by assistance;Assist X1;Additional time Interventions: Verbal cues;Safety awareness training Sit to Stand: Stand-by assistance;Assist X1;Additional time Stand to Sit: Stand-by assistance;Assist X1;Additional time Bed to Chair: Stand-by assistance;Assist X1;Additional time Toilet Transfer: Stand-by assistance;Additional time;Assist X1 Gait Training Right Side Weight Bearing: Full Left Side Weight Bearing: Full Gait Gait Training: Yes Left Side Weight Bearing: Full Right Side Weight Bearing: Full Overall Level of Assistance: Contact-guard assistance;Assist X1;Additional time Distance (ft): 100 Feet Assistive Device: Gait belt;None;Other (comment) Interventions: Safety awareness training;Verbal cues Speed/Joelle: Slow Step Length: Right shortened;Left shortened Neuromuscular Education Neuromuscular Education: No PT Exercises Exercise Treatment: Supine BLE therex x15 in all available planes of motion Other Specialty Interventions Other Treatments/Modalities: Commode use and transfer with hand hygiene at sink side-SUP. Safety Devices Type of Devices: Call light within reach;Patient at risk for falls;Bed alarm in place;Left in bed;Nurse notified Goals Short Term Goals Time Frame for Short Term Goals: 20 days Short Term Goal 1: Pt will be initiated on HEP and will be independent, and have good understanding by discharge for strength, positioning, and mobility. Short Term Goal 2: Pt will be independent with transfers with appropriate and least restrictive device with good safety to reduce risk of falls. Short Term Goal 3: Pt will be be independent and safe with ambulation using least restrictive device for up to 350 feet to allow patient to ambulate within the community for grocery and needs. Short Term Goal 4: Pt will be independent to negotiate 4 stairs with handrail to allow safe entry and exit to home. Patient Goals Patient Goals : control diarrhea and be able to go home Education Patient Education Education Given To: Patient Education Provided: Transfer Training;Energy Conservation;Home Exercise Program Education Method: Verbal Barriers to Learning: None Education Outcome: Verbalized understanding Therapy Time Individual Concurrent Group Co-treatment Time In 1254 Time Out 1318 Minutes 24 Tonya Goff PTA Physical Therapy Facility/Department: [facility] Daily Treatment Note NAME: Natasha Beauchamp : 1955 Date of Service: 12/11/2023 Discharge Recommendations: Continue to assess pending progress, Outpatient PT, Home independently Patient Diagnosis(es): The primary encounter diagnosis was Septicemia (HCC). Diagnoses of TABITHA (acute kidney injury) (HCC), Diarrhea, unspecified type, and Dehydration were also pertinent to this visit. Assessment Assessment: Bed mobility: SBA. Transfers: SBA/CGA. Pt ambulated 100ft while managing IV pole, no AD, CGA. Seated BLE therex x15 in all available planes of motion Activity Tolerance: Patient tolerated treatment well;Patient limited by fatigue Plan Physical Therapy Plan General Plan: 2 times a day 7 days a week Specific Instructions for Next Treatment: 1x/ daily on weekends and holidays Current Treatment Recommendations: Strengthening;Balance training;Functional mobility training;Transfer training;Endurance training;Neuromuscular re-education;Stair training;Gait training;Home exercise program;Patient/Caregiver education & training;Therapeutic activities Restrictions Restrictions/Precautions Restrictions/Precautions: General Precautions, Fall Risk Subjective Subjective Subjective: Pt. in bed upon arrival, family present, agreeable to therapy at this time Pain: denies Orientation Overall Orientation Status: Within Normal Limits Cognition Overall Cognitive Status: WNL Objective Bed Mobility Training Bed Mobility Training: Yes Overall Level of Assistance: Stand-by assistance;Assist X1;Additional time Interventions: Safety awareness training;Verbal cues Supine to Sit: Stand-by assistance;Assist X1;Additional time Scooting: Stand-by assistance;Assist X1;Additional time Balance Sitting: Intact Standing: Impaired Standing - Static: Good Standing - Dynamic: Good;Fair Transfer Training Transfer Training: Yes Overall Level of Assistance: Contact-guard assistance;Assist X1;Additional time Interventions: Verbal cues;Safety awareness training Sit to Stand: Contact-guard assistance;Assist X1;Additional time Stand to Sit: Contact-guard assistance;Assist X1;Additional time Bed to Chair: Stand-by assistance;Assist X1;Additional time Gait Training Right Side Weight Bearing: Full Left Side Weight Bearing: Full Gait Gait Training: Yes Left Side Weight Bearing: Full Right Side Weight Bearing: Full Overall Level of Assistance: Contact-guard assistance;Assist X1;Additional time Distance (ft): 100 Feet Assistive Device: Gait belt;None;Other (comment) (pt managed IV pole) Interventions: Safety awareness training;Verbal cues Speed/Joelle: Slow Step Length: Right shortened;Left shortened Neuromuscular Education Neuromuscular Education: No PT Exercises Exercise Treatment: Seated BLE therex x15 in all available planes of motion Other Specialty Interventions Other Treatments/Modalities: Toilet transfer, CGA/SBA Safety Devices Type of Devices: Call light within reach;Patient at risk for falls;Bed alarm in place;Left in bed;Nurse notified Goals Short Term Goals Time Frame for Short Term Goals: 20 days Short Term Goal 1: Pt will be initiated on HEP and will be independent, and have good understanding by discharge for strength, positioning, and mobility. Short Term Goal 2: Pt will be independent with transfers with appropriate and least restrictive device with good safety to reduce risk of falls. Short Term Goal 3: Pt will be be independent and safe with ambulation using least restrictive device for up to 350 feet to allow patient to ambulate within the community for grocery and needs. Short Term Goal 4: Pt will be independent to negotiate 4 stairs with handrail to allow safe entry and exit to home. Patient Goals Patient Goals : control diarrhea and be able to go home Education Patient Education Education Given To: Patient Education Provided: Transfer Training;Energy Conservation;Home Exercise Program Education Method: Verbal Barriers to Learning: None Education Outcome: Verbalized understanding AM-PAC - Mobility AM-PAC Mobility without Stair Climbing Inpatient How much difficulty turning over in bed?: None How much difficulty sitting down on / standing up from a chair with arms?: None How much difficulty moving from lying on back to sitting on side of bed?: A Little How much help from another person moving to and from a bed to a chair?: A Little How much help from another person needed to walk in hospital room?: A Little AM-PAC Inpatient Mobility without Stair Climbing Raw Score : 17 AM-PAC Inpatient without Stair Climbing T-Scale Score : 48.47 Mobility Inpatient CMS 0-100% Score: 32.72 Mobility Inpatient without Stair CMS G-Code Modifier : CJ Therapy Time Individual Concurrent Group Co-treatment Time In 934 Time Out 0958 Minutes 23 Claudia Dorman PTA Images from the original note were not included. Progress Note SUBJECTIVE: Patient seen for f/u of TABITHA (acute kidney injury) (HCC). She resting in bed no distress. Feels weak. 1 BM last night. ROS: Constitutional: negative for fevers, and negative for chills. Respiratory: negative for shortness of breath, negative for cough, and negative for wheezing Cardiovascular: negative for chest pain, and negative for palpitations Gastrointestinal: negative for abdominal pain, negative for nausea,negative for vomiting, negative for diarrhea, and negative for constipation All other systems were reviewed with the patient and are negative unless otherwise stated in HPI OBJECTIVE: Vitals: Vitals: 12/10/23 2351 BP: (!) 110/56 Pulse: (!) 112 Resp: 18 Temp: 98.6 F (37 C) SpO2: 96% Weight - Scale: 53.6 kg (118 lb 1.6 oz) Height: 157.5 cm (5' 2 ) Weight Wt Readings from Last 3 Encounters: 12/11/23 53.6 kg (118 lb 1.6 oz) 10/17/23 54 kg (119 lb) 10/03/23 54.2 kg (119 lb 6.4 oz) Body mass index is 21.6 kg/m . 24HR INTAKE/OUTPUT: Intake/Output Summary (Last 24 hours) at 12/11/2023 0648 Last data filed at 12/11/2023 0435 Gross per 24 hour Intake 4125.61 ml Output -- Net 4125.61 ml --- Exam: GEN: Awake, alert and oriented x3. EYES: EOMI, pupils equal NECK: Supple. No lymphadenopathy. No carotid bruit CVS: regular rate and rhythm, no audible murmur PULM: CTA, no wheezes, rales or rhonchi, no acute respiratory distress ABD: Bowels sounds normal. Abdomen is soft. No distention. no tenderness to palpation. EXT: no edema bilaterally . No calf tenderness. NEURO: Moves all extremities. Motor and sensory are grossly intact SKIN: No rashes. No skin lesions. --- Diagnostic Data: Complete Blood Count: Recent Labs 12/09/23181612/10/23 0545 12/11/23 0615 WBC 5.4 2.7* 4.0 RBC 4.18 3.45* 3.48* HGB 13.1 10.6* 11.0* HCT 39.4 32.6* 32.1* MCV 94.3 94.5 92.2 MCH 31.3 30.7 31.6 MCHC 33.2 32.5 34.3 RDW 14.1 14.1 14.1 PLT 241 191 189 MPV 10.5 10.5 10.0 Last 3 Blood Glucose: Recent Labs 12/09/23181612/10/23 0545 12/11/23 0615 GLUCOSE 149* 129* 107* Comprehensive Metabolic Profile: Recent Labs 12/09/23181612/10/23 0545 12/11/23 0615 NA 136 135* 138 K 3.9 3.6* 3.5* CL 100 107 112* CO2 19* 16* 15* BUN 30* 28* 15 CREATININE 2.1* 1.4* 1.0* GLUCOSE 149* 129* 107* CALCIUM 8.9 7.3* 7.8* BILITOT 0.3 <0.2 <0.2 ALKPHOS 106* 79 73 AST 15 17 29 ALT 15 12 16 Urinalysis: Lab Results Component Value Date/Time NITRU NEGATIVE 12/09/2023 11:00 PM COLORU Yellow 12/09/2023 11:00 PM PHUR 6.0 12/09/2023 11:00 PM PHUR 6.0 02/25/2023 05:55 PM WBCUA 2 TO 5 12/09/2023 11:00 PM RBCUA 0 TO 2 12/09/2023 11:00 PM MUCUS 2+ 12/09/2023 11:00 PM BACTERIA 2+ 12/09/2023 11:00 PM LEUKOCYTESUR NEGATIVE 12/09/2023 11:00 PM UROBILINOGEN Normal 12/09/2023 11:00 PM BILIRUBINUR NEGATIVE 12/09/2023 11:00 PM GLUCOSEU NEGATIVE 12/09/2023 11:00 PM KETUA TRACE 12/09/2023 11:00 PM AMORPHOUS 1+ 12/09/2023 11:00 PM HgBA1c: Lab Results Component Value Date/Time LABA1C 5.9 03/16/2021 10:37 AM Lactic Acid: Lab Results Component Value Date/Time LACTA 1.4 12/11/2023 06:15 AM LACTA 1.7 12/10/2023 12:40 AM LACTA 2.5 12/09/2023 10:34 PM Cultures: Radiology/Imaging: CT ABDOMEN PELVIS WO CONTRAST Additional Contrast? None Final Result Fluid-filled colon consistent with diarrheal state. CT Head WO Contrast Final Result No acute intracranial abnormality. No acute fracture in the cervical spine. CT THORACIC SPINE WO CONTRAST Final Result No acute bony abnormality is seen in the thoracic spine. Mild concavity of the T3 superior endplate with endplate sclerosis, could represent sequela of prior injury or degenerative change. Mild multilevel degenerative changes. 4 mm right lower lobe nodule. RECOMMENDATIONS: Fleischner Society guidelines for follow-up and management of incidentally detected pulmonary nodules: Nodule size less than 6 mm In a low-risk patient, no routine follow-up. In a high-risk patient, optional CT at 12 months. - Low risk patients include individuals with minimal or absent history of smoking and other known risk factors. - High risk patients include individuals with a history or smoking or known risk factors. Radiology 2017 http://pubs.rsna.org/doi/full/1 0.1148/radiol.4655894535 CT CERVICAL SPINE WO CONTRAST Final Result No acute intracranial abnormality. No acute fracture in the cervical spine. XR CHEST PORTABLE Final Result No acute cardiopulmonary process. ASSESSMENT / PLAN: MEDICAL DECISION MAKING: Primary Problem(s): TABITHA (acute kidney injury) (HCC) Differential diagnoses: CKD Condition is an undiagnosed new problem with uncertain prognosis Condition is improving Treatment plan: Monitor labs and replace electrolytes I&O Telemetry monitoring GI Panel pending CDiff-neg Imaging: None Medications: IV fluids Medication Monitoring / High Risk Medications: none Sepsis d/t Salmanella Condition is stable Treatment plan: Appreciate ID Blood cultures-Salmonella GI Panel-Salmonella Monitor labs and replace electrolytes Telemetry monitoring Imaging: no further imaging studies ordered today Medications: Stop Zosyn Continue Rocephin 2 gm IV q 24 hours Nutrition status: mild malnutrition Ophthalmologist Retina Specialist consult initiated Hospital Prophylaxis: DVT: Lovenox Stress Ulcer: PPI Disposition: Shared decision making: All test results, treatment options and disposition options were discussed with the patient today Social determinants of health that may impact management: none Code status: Full Code Disposition: Discharge plan is pending [facility] Advanced Care Planning documentation: [x] I have confirmed that the patient's Advance Care Plan is present, Code Status is documented, or surrogate decision maker is listed in the patient's medical record [If yes , STOP HERE] [] The patient's Advance Care Plan is NOT present because: [] I confirmed today that the patient does not wish or was not able to name a surrogate decision maker or provide and advance care plan. [] Hospice care is currently being provided or has been provided within the calendar year. [] I did NOT confirm today the presence of an Advance Care Plan or surrogate decision maker documented within the patient's medical record. [DOES NOT SATISFY [facility] PERFORMANCE] Bridget Hall APRN - ANIMAL BEHAVIORIST , VRT MECHANIC, SALES AND PRODUCTION MANAGER-C Hospitalist Medicine 12/11/2023, 6:48 AM Associated attestation - Kalpana Whittington MD - 12/11/2023 3:56 PM EDT Attending Supervising Physician s Attestation Statement I have personally evaluated and examined the patient [id number] in conjunction with the nurse practitioner. I agree with management and disposition of the patient. My mtz findings are: 68 y.o. female admitteed for TABITHA (acute kidney injury) (HCC) on 12/09/2023 Egular rate and rhythm. Clear lung sounds. Soft abdomen. No edema. TABITHA (acute kidney injury) (HCC) Principal Problem: TABITHA (acute kidney injury) (HCC) Active Problems: Diarrhea Sepsis (HCC) Salmonella bacteremia Salmonella food poisoning Resolved Problems: * No resolved hospital problems. * Examined and Reviewed plan of care with SALES AND PRODUCTION MANAGER. Directions and discussion about care and plans. Disposition including length of stay was reviewed. Nutritional status, advanced directive and old records reviewed. In addition, Consultations and pharmacy management including drug therapy was reviewed. Physical therapy goals along with occupational therapy was reviewed & integrated into management including disposition. Disposition: Awaiting blood cultures. Continue antibiotics. Id involved. The patient was seen examined with the nurse practitioner on December 11, 2023 all direct care was reviewed with the nurse practitioner at the bedside with the patient. Electronically signed by Kalpana Whittington MD Score Caller at bedside to complete evening assessment. Upon entry to room, pt awake and in bed, respirations normal and unlabored while on room air. Vitals obtained and assessment completed, see flow sheet for details. Pt denies needs from food writer at this time. Call light in reach. Care is ongoing. Physical Therapy Facility/Department: [facility] Physical Therapy Initial Assessment Name: Natasha Beauchamp : 1955 Date of Service: 12/10/2023 Discharge Recommendations: Continue to assess pending progress, Outpatient PT, Home independently Patient Diagnosis(es): The primary encounter diagnosis was Septicemia (HCC). Diagnoses of TABITHA (acute kidney injury) (HCC), Diarrhea, unspecified type, and Dehydration were also pertinent to this visit. Past Medical History: has a past medical history of Anemia, Arthritis, Asthma, Gastric ulcer, GERD (gastroesophageal reflux disease), History of blood transfusion, and Salmonella bacteremia. Past Surgical History: has a past surgical history that includes Kidney removal (Left); Stomach surgery; section; Hysterectomy; Upper gastrointestinal endoscopy; and Colonoscopy (03/26/2010). Assessment Body Structures, Functions, Activity Limitations Requiring Skilled Therapeutic Intervention: Decreased functional mobility ;Decreased endurance;Decreased balance;Decreased posture;Decreased strength Assessment: Pt was referred for difficulty walking and general debility. Pt requires close CGA +1 due to issues of passing out which hasn't happened since being in the hospital but now is having issues with diarrhea. Treatment Diagnosis: difficulty walking Therapy Prognosis: Good Decision Making: Medium Complexity Barriers to Learning: none Requires PT Follow-Up: Yes Activity Tolerance Activity Tolerance: Patient tolerated evaluation without incident Plan Physical Therapy Plan General Plan: 2 times a day 7 days a week (with exception of weekends, daily) Current Treatment Recommendations: Strengthening, Balance training, Functional mobility training, Transfer training, Endurance training, Neuromuscular re-education, Stair training, Gait training, Home exercise program, Patient/Caregiver education & training, Therapeutic activities Safety Devices Type of Devices: Call light within reach, Chair alarm in place, Left in chair, Patient at risk for falls Restrictions Restrictions/Precautions Restrictions/Precautions: General Precautions, Fall Risk Subjective General Chart Reviewed: Yes Follows Commands: Within Functional Limits Subjective Subjective: Pt states she had passed out when she stood without warning and now she has the diarrhea which is immediate. Pt is feeling a little better but has a headache. Nurse gave her something for the pain. Social/Functional History Social/Functional History Lives With: Spouse Type of Home: House Home Layout: Multi-level Home Access: Stairs to enter without rails Entrance Stairs - Number of Steps: 3 Bathroom Shower/Tub: Tub/Shower unit Bathroom Toilet: Standard Has the patient had two or more falls in the past year or any fall with injury in the past year?: Yes ADL Assistance: Independent Homemaking Assistance: Independent Ambulation Assistance: Independent Transfer Assistance: Independent Vision/Hearing Vision Vision: Impaired Vision Exceptions: Wears glasses for reading Hearing Hearing: Within functional limits Cognition Objective Observation/Palpation Observation: pt had to stand for a few seconds before moving to chair. Gross Assessment AROM: Within functional limits Strength: Generally decreased, functional Bed Mobility Training Bed Mobility Training: Yes Overall Level of Assistance: Stand-by assistance;Assist X1;Additional time Interventions: Safety awareness training;Verbal cues Supine to Sit: Stand-by assistance;Assist X1;Additional time Scooting: Stand-by assistance;Assist X1;Additional time Balance Sitting: Intact Standing: Impaired Standing - Static: Good Standing - Dynamic: Good;Fair Transfer Training Transfer Training: Yes Overall Level of Assistance: Contact-guard assistance;Minimum assistance;Assist X1;Additional time Interventions: Verbal cues;Safety awareness training Sit to Stand: Minimum assistance;Contact-guard assistance;Assist X1 Stand to Sit: Contact-guard assistance;Assist X1;Additional time Bed to Chair: Stand-by assistance;Assist X1;Additional time Gait Training Right Side Weight Bearing: Full Left Side Weight Bearing: Full Gait Gait Training: Yes Left Side Weight Bearing: Full Right Side Weight Bearing: Full Overall Level of Assistance: Contact-guard assistance;Minimum assistance;Assist X1;Additional time Distance (ft): 5 Feet Assistive Device: Gait belt;None Interventions: Safety awareness training;Verbal cues Speed/Joelle: Slow Step Length: Right shortened;Left shortened OutComes Score AM-PAC - Mobility AM-PAC Basic Mobility - Inpatient How much help is needed turning from your back to your side while in a flat bed without using bedrails?: A Little How much help is needed moving from lying on your back to sitting on the side of a flat bed without using bedrails?: A Little How much help is needed moving to and from a bed to a chair?: A Little How much help is needed standing up from a chair using your arms?: A Little How much help is needed walking in hospital room?: A Little How much help is needed climbing 3-5 steps with a railing?: A Little [facility] T-[facility] Score : 43.63 Mobility Inpatient CMS 0-100% Score: 46.58 Mobility Inpatient CMS G-Code Modifier : CK Goals Short Term Goals Time Frame for Short Term Goals: 20 days Short Term Goal 1: Pt will be initiated on HEP and will be independent, and have good understanding by discharge for strength, positioning, and mobility. Short Term Goal 2: Pt will be independent with transfers with appropriate and least restrictive device with good safety to reduce risk of falls. Short Term Goal 3: Pt will be be independent and safe with ambulation using least restrictive device for up to 350 feet to allow patient to ambulate within the community for grocery and needs. Short Term Goal 4: Pt will be independent to negotiate 4 stairs with handrail to allow safe entry and exit to home. Patient Goals Patient Goals : control diarrhea and be able to go home Education Patient Education Education Given To: Patient Education Provided: Role of Therapy;Plan of Care Education Method: Verbal Barriers to Learning: None Education Outcome: Verbalized understanding Therapy Time Individual Concurrent Group Co-treatment Time In 903 Time Out 925 Minutes 22 Mary Alice Almonte PT, DPT Bladder scan 538, attempted otero, pt wanted to attempt to urinate and was successful. Bladder scan rechecked, was 362. Will continue to monitor Occupational Therapy Facility/Department: [facility] Occupational Therapy Initial Assessment Name: Natasha Beauchamp : 1955 Date of Service: 12/10/2023 Discharge Recommendations: Continue to assess pending progress Patient Diagnosis(es): The primary encounter diagnosis was Septicemia (HCC). Diagnoses of TABITHA (acute kidney injury) (HCC), Diarrhea, unspecified type, and Dehydration were also pertinent to this visit. Past Medical History: has a past medical history of Anemia, Arthritis, Asthma, Gastric ulcer, GERD (gastroesophageal reflux disease), and History of blood transfusion. Past Surgical History: has a past surgical history that includes Kidney removal (Left); Stomach surgery; section; Hysterectomy; Upper gastrointestinal endoscopy; and Colonoscopy (03/26/2010). Treatment Diagnosis: weakness Assessment Performance deficits / Impairments: Decreased functional mobility ;Decreased ADL status;Decreased strength;Decreased endurance;Decreased high-level IADLs;Decreased balance Assessment: 68 y/o F admitted to T for diarrhea and dehydration. Patient presents with weakness and deconditioning, requiring increased need for assist during ADL. Patient would benefit from OT services to address to ensure safe return home with . Treatment Diagnosis: weakness Prognosis: Good Decision Making: Medium Complexity REQUIRES OT FOLLOW-UP: Yes Plan Occupational Therapy Plan Times Per Day: Once a day Days Per Week: 7 Days Current Treatment Recommendations: Strengthening, ROM, Balance training, Functional mobility training, Equipment evaluation, education, & procurement, Endurance training, Patient/Caregiver education & training, Safety education & training, Home management training, Self-Care / ADL Restrictions Restrictions/Precautions Restrictions/Precautions: General Precautions, Fall Risk Subjective Subjective Subjective: Patient states discomfort in stomach. Patient sitting up in bed upon arrival, agreeable to OT eval Social/Functional History Social/Functional History Lives With: Spouse Type of Home: House Home Layout: Multi-level Home Access: Stairs to enter without rails Entrance Stairs - Number of Steps: 3 Bathroom Shower/Tub: Tub/Shower unit Bathroom Toilet: Standard Has the patient had two or more falls in the past year or any fall with injury in the past year?: Yes ADL Assistance: Independent Homemaking Assistance: Independent Ambulation Assistance: Independent Transfer Assistance: Independent Objective Safety Devices Type of Devices: All fall risk precautions in place;Call light within reach;Chair alarm in place;Left in chair AROM: Within functional limits PROM: Within functional limits Strength: Generally decreased, functional Coordination: Generally decreased, functional Tone: Normal Sensation: Intact ADL Feeding: Independent Grooming: Contact guard assistance UE Bathing: Stand by assistance LE Bathing: Contact guard assistance UE Dressing: Stand by assistance LE Dressing: Contact guard assistance Toileting: Contact guard assistance Functional Mobility: Contact guard assistance Functional Mobility Skilled Clinical Factors: s AD Additional Comments: Pt declined getting out of bed at this time. Skin Care: Soap and water Vision Vision: Impaired Vision Exceptions: Wears glasses for reading Hearing Hearing: Within functional limits Cognition Overall Cognitive Status: WNL Orientation Overall Orientation Status: Within Normal Limits Exercise Treatment: Pt completed BUE Ther ex x 5 planes x 15 reps x 1 set to increase UE strength and endurance in order to ease completion of ADL tasks. Pt required RBs as needed secondary to fatigue. Education Given To: Patient Education Provided: Role of Therapy;Plan of Care Education Method: Verbal Barriers to Learning: None Education Outcome: Verbalized understanding [facility] - ADL [facility] Daily Activity - Inpatient How much help is needed for putting on and taking off regular lower body clothing?: A Little How much help is needed for bathing (which includes washing, rinsing, drying)?: A Little How much help is needed for toileting (which includes using toilet, bedpan, or urinal)?: A Little How much help is needed for putting on and taking off regular upper body clothing?: A Little How much help is needed for taking care of personal grooming?: A Little How much help for eating meals?: None [facility] Inpatient Daily Activity Raw Score: 19 [facility] Inpatient ADL T-Scale Score : 40.22 ADL Inpatient CMS 0-100% Score: 42.8 ADL Inpatient [facility] G-Code Modifier : CK Goals Short Term Goals Time Frame for Short Term Goals: 21 visits Short Term Goal 1: Patient to be educated on d/c folder, AE/DME and home safety to ensure safe return home. Short Term Goal 2: Patient to engage in 15 minutes of ther ex/ther act to improve strength and activity tolerance for I/ADL upon return home. Short Term Goal 3: Patient to complete ADL routine c mod I to ensure safe and indep return home. Short Term Goal 4: Patient to engage in 10 minutes dynamic standing during functional task of choice without loss of balance for improved I/ADL independence and safety upon return home. Therapy Time Individual Concurrent Group Co-treatment Time In 919 Time Out 929 Minutes 10 PAO [facility] Nutrition Assessment Type and Reason for Visit: Initial Nutrition Recommendations/Plan: Continue current diet. Start ensure clear until diet advanced, then switch to Glucerna Malnutrition Assessment: Malnutrition Status: At risk for malnutrition (Comment) (12/10/23 1248) Context: Acute Illness Findings of the 6 clinical characteristics of malnutrition: Energy Intake: Mild decrease in energy intake (Comment) Weight Loss: No significant weight loss Body Fat Loss: No significant body fat loss Muscle Mass Loss: No significant muscle mass loss Fluid Accumulation: No significant fluid accumulation Joiner Apprentice Strength: Not Performed Nutrition Assessment: Altered nutrition related labs r/t endocrine dysfunction/impaired nutrient utilization aeb A1c 5.9, vitamin D 25.3 in 2019. Corrected calcium 8.1. GFR 42, Na 135, K+ 3.6. cholesterol 219. Pt admitted with septicemia, TABITHA, diarrhea, and dehydration. Recommend to recheck vitamin D and supplement as indicated. Pt reports eating once daily. She was uninterested in suggestions to eat 3 meals per day to aid glycemic control. Add ensure clear TID with meals, modify to glucerna when diet advanced due to pre-diabetes range A1c. Nutrition Related Findings: no edema Wound Type: None Current Nutrition Intake & Therapies: Average Meal Intake: 26-50% Average Supplements Intake: None Ordered ADULT DIET; Clear Liquid Anthropometric Measures: Height: 157.5 cm (5' 2 ) [place] Body Weight (IBW): 110 lbs (50 kg) Admission Body Weight: 55.4 kg (122 lb 2 oz) Current Body Weight: 55.4 kg (122 lb 2.2 oz), 111 % IBW. Weight Source: Bed Scale Current BMI (kg/m2): 22.3 Usual Body Weight: 60.4 kg (133 lb 3 oz) % Weight Change (Calculated): -8.3 Weight Adjustment For: No Adjustment BMI Categories: Normal Weight (BMI 22.0 to 24.9) age over 65 Estimated Daily Nutrient Needs: Energy Requirements Based On: Kcal/kg Weight Used for Energy Requirements: Current Energy (kcal/day): 1884-2835 (25-28/kg) Weight Used for Protein Requirements: Current Protein (g/day): 72-83g (1.3-1.5g/kg) Method Used for Fluid Requirements: 1 ml/kcal Fluid (ml/day): 1,500 ml Lab Results Component Value Date/Time LABA1C 5.9 03/16/2021 10:37 AM No results for input(s): POCGLU in the last 72 hours. Lab Results Component Value Date/Time TRIG 155 07/13/2023 10:28 AM HDL 46 07/13/2023 10:28 AM Lab Results Component Value Date VITD25 25.3 (L) 12/18/2018 Hematology: Recent Labs 12/09/23181612/10/23 0545 WBC 5.4 2.7* HGB 13.1 10.6* HCT 39.4 32.6* Chemistry: Recent Labs 12/09/23181612/10/23 0545 NA 136 135* K 3.9 3.6* CL 100 107 CO2 19* 16* GLUCOSE 149* 129* BUN 30* 28* CREATININE 2.1* 1.4* CALCIUM 8.9 7.3* Recent Labs 12/09/23181612/10/23 0545 AST 15 17 ALT 15 12 ALKPHOS 106* 79 BILITOT 0.3 <0.2 Nutrition Diagnosis: Altered nutrition-related lab values related to endocrine dysfuntion, impaired nutrient utilization as evidenced by lab values Nutrition Interventions: Food and/or Nutrient Delivery: Continue Current Diet, Start Oral Nutrition Supplement Nutrition Education/Counseling: Education initiated Coordination of Nutrition Care: Continue to monitor while inpatient Plan of Care discussed with: patient Goals: Goals: Meet at least 75% of estimated needs Nutrition Monitoring and Evaluation: Behavioral-Environmental Outcomes: None Identified Food/Nutrient Intake Outcomes: Diet Advancement/Tolerance, Supplement Intake Physical Signs/Symptoms Outcomes: Biochemical Data, Weight, Diarrhea, GI Status Discharge Planning: Too soon to determine [address], [place] Contact: [phone] Physical Therapy Facility/Department: [facility] Daily Treatment Note NAME: Natasha Beauchamp : 1955 Date of Service: 12/11/2023 Discharge Recommendations: Continue to assess pending progress, Outpatient PT, Home independently Patient Diagnosis(es): The primary encounter diagnosis was Septicemia (HCC). Diagnoses of TABITHA (acute kidney injury) (HCC), Diarrhea, unspecified type, and Dehydration were also pertinent to this visit. Assessment Assessment: Pt. completed supine BLE therex x15 in all available planes of motion. Pt. reporting she is tired and would like to stay in bed at this time. Will continue to progress as tolerated. Activity Tolerance: Patient tolerated treatment well;Patient limited by fatigue Plan Physical Therapy Plan General Plan: 2 times a day 7 days a week Specific Instructions for Next Treatment: 1x/ daily on weekends and holidays Current Treatment Recommendations: Strengthening;Balance training;Functional mobility training;Transfer training;Endurance training;Neuromuscular re-education;Stair training;Gait training;Home exercise program;Patient/Caregiver education & training;Therapeutic activities Restrictions Restrictions/Precautions Restrictions/Precautions: General Precautions, Fall Risk Subjective Subjective Subjective: Pt. in bed upon arrival, family present, agreeable to therapy at this time Pain: denies Orientation Overall Orientation Status: Within Normal Limits Objective Bed Mobility Training Bed Mobility Training: No Transfer Training Transfer Training: No Gait Gait Training: No PT Exercises Exercise Treatment: Supine BLE therex x15 in all available planes of motion Safety Devices Type of Devices: Call light within reach;Patient at risk for falls;Bed alarm in place;Left in bed Goals Short Term Goals Time Frame for Short Term Goals: 20 days Short Term Goal 1: Pt will be initiated on HEP and will be independent, and have good understanding by discharge for strength, positioning, and mobility. Short Term Goal 2: Pt will be independent with transfers with appropriate and least restrictive device with good safety to reduce risk of falls. Short Term Goal 3: Pt will be be independent and safe with ambulation using least restrictive device for up to 350 feet to allow patient to ambulate within the community for grocery and needs. Short Term Goal 4: Pt will be independent to negotiate 4 stairs with handrail to allow safe entry and exit to home. Patient Goals Patient Goals : control diarrhea and be able to go home Education Patient Education Education Given To: Patient Education Provided: Role of Therapy;Plan of Care Education Method: Verbal Barriers to Learning: None Education Outcome: Verbalized understanding Therapy Time Individual Concurrent Group Co-treatment Time In 1149 Time Out 1204 Minutes 15 Tonya Goff PTA RESPIRATORY ASSESSMENT PROTOCOL Patient Name: Natasha Beauchamp Room#: 0325/0325-01 : 1955 Admitting diagnosis: Diarrhea [R19.7] Septicemia (HCC) [A41.9] TABITHA (acute kidney injury) (HCC) [N17.9] Diarrhea, unspecified type [R19.7] Medical History: Past Medical History: Diagnosis Date Anemia Arthritis Asthma Gastric ulcer GERD (gastroesophageal reflux disease) History of blood transfusion PATIENT ASSESSMENT LABORATORY DATA Hematology: Lab Results Component Value Date/Time WBC 2.7 12/10/2023 05:45 AM RBC 3.45 12/10/2023 05:45 AM RBC 4.26 02/09/2020 10:51 AM HGB 10.6 12/10/2023 05:45 AM HCT 32.6 12/10/2023 05:45 AM PLT 191 12/10/2023 05:45 AM Chemistry: No results found for: PHART , MOT5VAC , PO2ART , [id number] , GRL7XJD , PBEA , NBEA VITALS Pulse: (!) 113 Respirations: 16 BP: (!) 103/49 SpO2: 96 % O2 Device: None (Room air) Temp: (!) 100.9 F (38.3 C) SKIN COLOR [x] Normal [] Pale [] Dusky [] Cyanotic RESPIRATORY PATTERN [x] Normal [] Dyspnea [] Azam-Lopez [] Kussmaul [] Biots AMBULATORY [x] Yes [] No [] With Assistance PEAK FLOW Predicted: Personal Best: Patient Acuity 0 1 2 3 4 Score Level of Consciousness (LOC) [x] Alert & Oriented or Pt normal LOC [] Confused;follows directions [] Confused & uncooper-ative [] Obtunded [] Comatose 0 Respiratory Rate (RR) [x] Reg. rate & pattern. 12 - 20 bpm [] Increased RR. Greater than 20 bpm [] SOB w/ exertion or RR greater than 24 bpm [] Access- ory muscle use at rest. Abn. resp. [] SOB at rest. 0 Bilateral Breath Sounds (BBS) [x] Clear [] Diminish-ed bases [] Diminish-ed t/o, or rales [] Sporadic, scattered wheezes or rhonchi [] Persistentwheezes and, or absent BBS 0 Cough [x] Strong, effective, & non-prod. [] Effective & prod. Less than 25 ml (2 TBSP) over past 24 hrs [] Ineffective & non-prod to less than 25 ML over past 24 hrs [] Ineffective and, or greater than 25 ml sputum prod. past 24 hrs. [] Nonspon- taneous; Requires suctioning 0 Pulmonary History (PULM HX) [] No smoking and no chronic pulmonary history [] Former smoker. Quit over 12 mos. ago [] Current smoker or quit w/ in 12 mos [x] Pulm. History and, or 20 pk/yr smoking hx [] Admitted w/ acute pulm. dx and, or has been admitted w/ pulm. dx 2 or more times over past 12 mos 3 Surgical History this Admit (SURG HX) [x] No surgery [] General surgery [] Lower abdominal [] Thoracic or upper abdominal [] Thoracic w/ pulm. disease 0 Chest X-Ray (CXR)/CT Scan [x] Clear or not applicable [] Not available [] Atelectasis or pleural effusions [] Localized infiltrate or pulm. edema [] Con-solidated Infiltrates, bilateral, or in more than 1 lobe 0 TOTAL ACUITY: 3 CARE PLAN If Acuity Level is 2, 3, or 4 in any of the following: [] BILATERAL BREATH SOUNDS (BBS) [x] PULMONARY HISTORY (PULM HX) [] Respiratory Rate (RR) Goal: Improve respiratory functions in patients with airway disease and decrease WOB [x] AEROSOL PROTOCOL Total Acuity: 14-28 [] Secondary Assessment in 24 hrs Total Acuity: 9-13 [] Secondary Assessment in 24 hrs Total Acuity: 4-8 [] Secondary Assessment in 24 hrs Total Acuity: 0-3 [x] Secondary Assessment in 48 hrs HHN AEROSOL THERAPY with [physician-ordered bronchodilator(s)] q 4 & Albuterol PRN q2 hrs. Breath-Actuated Neb if BBS Acuity = 4, and pt. can use MP. Notify physician if condition deteriorates. HHN AEROSOL THERAPY with [physician-ordered bronchodilator(s)] QID and Albuterol PRN q4 hrs. Breath-Actuated Neb if BBS Acuity = 4, and pt. can use MP. Notify physician if condition deteriorates. MDI THERAPY with 2 actuations of [physician-ordered bronchodilator(s)] via spacer TID Albuterol and PRN q4 hrs. If unable to utilize MDI: HHN [physician-ordered bronchodilator(s)] TID and Albuterol PRN q4 hrs. Notify physician if condition deteriorates. MDI THERAPY with [physician-ordered bronchodilator(s)] via spacer TID PRN. If unable to utilize MDI: HHN [physician-ordered bronchodilator(s)] TID PRN. Notify physician if condition deteriorates. If Acuity Level is 2, 3, or 4 in any of the following: [] COUGH [] SURGICAL HISTORY (SURG HX) [] CHEST XRAY (CXR) Goal: Improvement in sputum mobilization in patients with ineffective airway clearance. Reverse atelectasis. [] Bronchopulmonary Hygiene Protocol Total Acuity: 14-28 [] Secondary Assessment in 24 hrs Total Acuity: 9-13 [] Secondary Assessment in 24 hrs Total Acuity: 4-8 [] Secondary Assessment in 24 hrs Total Acuity: 0-3 [] Secondary Assessment in 48 hrs METANEB QID with [physician-ordered bronchodilator(s)] if CXR Acuity = 4; otherwise: PD&P, Oscillatory Therapy, or Vest QID & PRN AND PEP QID & PRN NT Sxn PRN for ineffective cough METANEB QID with [physician-ordered bronchodilator(s)] if CXR Acuity = 4; otherwise: PD&P, Oscillatory Therapy or Vest QID & PRN AND PEP QID & PRN NT Sxn PRN for ineffective cough PD&P, Oscillatory Therapy, or Vest TID & PRN AND PEP TID & PRN Instruct patient to self-perform IS q1hr WA If Acuity Level is 2 or above in the following: [] PULMONARY HISTORY (PULM HX) Goal: Assist patient in quitting smoking to slow or stop the progression of lung disease. [] Smoking Cessation Protocol SMOKING CESSATION EDUCATION provided according to policy RT_201: (kalpana with an X) ____Yes ____ No ____ NA Smoking Cessation Booklet given: ____Yes ____No ____Patient Refused Progress Note SUBJECTIVE: Patient seen for f/u of TABITHA (acute kidney injury) ([facility]). She resting in bed no distress. Feels weak. ROS: Constitutional: negative for fevers, and negative for chills. Respiratory: negative for shortness of breath, negative for cough, and negative for wheezing Cardiovascular: negative for chest pain, and negative for palpitations Gastrointestinal: negative for abdominal pain, negative for nausea,negative for vomiting, negative for diarrhea, and negative for constipation All other systems were reviewed with the patient and are negative unless otherwise stated in HPI OBJECTIVE: Vitals: Vitals: 12/10/23 0430 BP: (!) 127/44 Pulse: (!) 121 Resp: Temp: (!) 102 F (38.9 C) SpO2: Weight - Scale: 55.4 kg (122 lb 1.6 oz) Height: 157.5 cm (5' 2 ) Weight Wt Readings from Last 3 Encounters: 12/10/23 55.4 kg (122 lb 1.6 oz) 10/17/23 54 kg (119 lb) 10/03/23 54.2 kg (119 lb 6.4 oz) Body mass index is 22.33 kg/m . 24HR INTAKE/OUTPUT: Intake/Output Summary (Last 24 hours) at 12/10/2023 0715 Last data filed at 12/10/2023 0108 Gross per 24 hour Intake 299.89 ml Output -- Net 299.89 ml --- Exam: GEN: Awake, alert and oriented x3. EYES: EOMI, pupils equal NECK: Supple. No lymphadenopathy. No carotid bruit CVS: regular rate and rhythm, no audible murmur PULM: CTA, no wheezes, rales or rhonchi, no acute respiratory distress ABD: Bowels sounds normal. Abdomen is soft. No distention. no tenderness to palpation. EXT: no edema bilaterally . No calf tenderness. NEURO: Moves all extremities. Motor and sensory are grossly intact SKIN: No rashes. No skin lesions. --- Diagnostic Data: Complete Blood Count: Recent Labs 12/09/23181612/10/23 0545 WBC 5.4 2.7* RBC 4.18 3.45* HGB 13.1 10.6* HCT 39.4 32.6* MCV 94.3 94.5 MCH 31.3 30.7 MCHC 33.2 32.5 RDW 14.1 14.1 PLT 241 191 MPV 10.5 10.5 Last 3 Blood Glucose: Recent Labs 12/09/23181612/10/23 0545 GLUCOSE 149* 129* Comprehensive Metabolic Profile: Recent Labs 12/09/23181612/10/23 0545 NA 136 135* K 3.9 3.6* CL 100 107 CO2 19* 16* BUN 30* 28* CREATININE 2.1* 1.4* GLUCOSE 149* 129* CALCIUM 8.9 7.3* BILITOT 0.3 <0.2 ALKPHOS 106* 79 AST 15 17 ALT 15 12 Urinalysis: Lab Results Component Value Date/Time NITRU NEGATIVE 12/09/2023 11:00 PM COLORU Yellow 12/09/2023 11:00 PM PHUR 6.0 12/09/2023 11:00 PM PHUR 6.0 02/25/2023 05:55 PM WBCUA 2 TO 5 12/09/2023 11:00 PM RBCUA 0 TO 2 12/09/2023 11:00 PM MUCUS 2+ 12/09/2023 11:00 PM BACTERIA 2+ 12/09/2023 11:00 PM LEUKOCYTESUR NEGATIVE 12/09/2023 11:00 PM UROBILINOGEN Normal 12/09/2023 11:00 PM BILIRUBINUR NEGATIVE 12/09/2023 11:00 PM GLUCOSEU NEGATIVE 12/09/2023 11:00 PM KETUA TRACE 12/09/2023 11:00 PM AMORPHOUS 1+ 12/09/2023 11:00 PM HgBA1c: Lab Results Component Value Date/Time LABA1C 5.9 03/16/2021 10:37 AM Lactic Acid: Lab Results Component Value Date/Time LACTA 1.7 12/10/2023 12:40 AM LACTA 2.5 12/09/2023 10:34 PM Troponin: No results for input(s): TROPONINI in the last 72 hours. CRP: No results for input(s): CRP in the last 72 hours. Radiology/Imaging: CT Head WO Contrast Final Result No acute intracranial abnormality. No acute fracture in the cervical spine. CT THORACIC SPINE WO CONTRAST Final Result No acute bony abnormality is seen in the thoracic spine. Mild concavity of the T3 superior endplate with endplate sclerosis, could represent sequela of prior injury or degenerative change. Mild multilevel degenerative changes. 4 mm right lower lobe nodule. RECOMMENDATIONS: Fleischner Society guidelines for follow-up and management of incidentally detected pulmonary nodules: Nodule size less than 6 mm In a low-risk patient, no routine follow-up. In a high-risk patient, optional CT at 12 months. - Low risk patients include individuals with minimal or absent history of smoking and other known risk factors. - High risk patients include individuals with a history or smoking or known risk factors. Radiology 2017 http://pubs.rsna.org/doi/full/1 0.1148/radiol.6987173626 CT CERVICAL SPINE WO CONTRAST Final Result No acute intracranial abnormality. No acute fracture in the cervical spine. XR CHEST PORTABLE Final Result No acute cardiopulmonary process. CT ABDOMEN PELVIS WO CONTRAST Additional Contrast? None (Results Pending) ASSESSMENT / PLAN: MEDICAL DECISION MAKING: Primary Problem(s): TABITHA (acute kidney injury) (HCC) Differential diagnoses: CKD Condition is an undiagnosed new problem with uncertain prognosis Condition is stable Treatment plan: Monitor labs and replace electrolytes I&O Telemetry monitoring GI Panel pending CDiff-neg Imaging: CT abdomen ordered in a.m. Medications: IV fluids Medication Monitoring / High Risk Medications: none Sepsis d/t Salmanella Condition is stable Treatment plan: Appreciate ID Blood cultures-Salmanella Stool cultures pending Monitor labs and replace electrolytes Telemetry monitoring Imaging: no further imaging studies ordered today Medications: Stop Zosyn Start Rocephin 2 gm IV q 24 hours Nutrition status: mild malnutrition Ophthalmologist Retina Specialist consult initiated Hospital Prophylaxis: DVT: Lovenox Stress Ulcer: PPI Disposition: Shared decision making: All test results, treatment options and disposition options were discussed with the patient today Social determinants of health that may impact management: none Code status: Full Code Disposition: Discharge plan is pending [facility] Advanced Care Planning documentation: [x] I have confirmed that the patient's Advance Care Plan is present, Code Status is documented, or surrogate decision maker is listed in the patient's medical record [If yes , STOP HERE] [] The patient's Advance Care Plan is NOT present because: [] I confirmed today that the patient does not wish or was not able to name a surrogate decision maker or provide and advance care plan. [] Hospice care is currently being provided or has been provided within the calendar year. [] I did NOT confirm today the presence of an Advance Care Plan or surrogate decision maker documented within the patient's medical record. [DOES NOT SATISFY [facility] PERFORMANCE] Bridget Hall APRN - TIARA , VRT MECHANIC, SALES AND PRODUCTION MANAGER-C Hospitalist Medicine 12/10/2023, 7:15 AM Associated attestation - Sharon Pleitez MD - 12/10/2023 8:13 PM EDT Images from the original note were not included. [address], [address] Attestation Patient: Natasha Beauchamp Date of Admission: 12/09/2023 5:44 PM Hospital Day # 0 Date of Evaluation: 12/10/2023 I personally evaluated and examined the patient [id number] in conjunction with the PA/SALES AND PRODUCTION MANAGER and agree with the management and dispostition of the patient. Please see the PA/SALES AND PRODUCTION MANAGER's note for full details. My mtz findings are: SUBJECTIVE: Patient seen for follow up of TABITHA (acute kidney injury) (HCC). Patient seen and examined at the bed side , no new acute events overnight and no new complains noted. VSS, afebrile. Notes from nursing staff and Consults had been reviewed, and the overnight progress had been checked with the nursing staff as well. She continues to feel weak. OBJECTIVE: Vitals: Temp: 98.8 F (37.1 C) BP: 113/63 Respirations: 16 Pulse: (!) 117 SpO2: 96 % Weight Wt Readings from Last 3 Encounters: 12/10/23 55.4 kg (122 lb 1.6 oz) 10/17/23 54 kg (119 lb) 10/03/23 54.2 kg (119 lb 6.4 oz) Body mass index is 22.33 kg/m . 24HR INTAKE/OUTPUT: Intake/Output Summary (Last 24 hours) at 12/10/20232011 Last data filed at 12/10/2023 0823 Gross per 24 hour Intake 1659.89 ml Output -- Net 1659.89 ml --- Exam: GEN: Awake, alert and oriented x3. EYES: EOMI, pupils equal NECK: Supple. No lymphadenopathy. No carotid bruit CVS: regular rate and rhythm, no audible murmur PULM: CTA, no wheezes, rales or rhonchi, no acute respiratory distress ABD: Bowels sounds normal. Abdomen is soft. No distention. no tenderness to palpation. EXT: no edema bilaterally . No calf tenderness. NEURO: Moves all extremities. Motor and sensory are grossly intact SKIN: No rashes. No skin lesions. DATA: Complete Blood Count: Recent Labs 12/09/23181612/10/23 0545 WBC 5.4 2.7* RBC 4.18 3.45* HGB 13.1 10.6* HCT 39.4 32.6* MCV 94.3 94.5 RDW 14.1 14.1 PLT 241 191 Recent Labs 12/09/23181612/10/23 0545 NEUTROABS 4.05 2.35 LYMPHOPCT 9* 11* LYMPHSABS 0.49* 0.30* MONOPCT 15* 2* BASOPCT 0 0 IMMGRAN 1* 0 CMP: Lab Results Component Value Date GLUCOSE 129 (H) 12/10/2023 BUN 28 (H) 12/10/2023 CREATININE 1.4 (H) 12/10/2023 NA 135 (L) 12/10/2023 K 3.6 (L) 12/10/2023 CALCIUM 7.3 (L) 12/10/2023 CL 107 12/10/2023 CO2 16 (L) 12/10/2023 BILITOT <0.2 12/10/2023 ALKPHOS 79 12/10/2023 ALT 12 12/10/2023 AST 17 12/10/2023 UA: Lab Results Component Value Date COLORU Yellow 12/09/2023 WBCUA 2 TO 5 12/09/2023 RBCUA 0 TO 2 12/09/2023 LEUKOCYTESUR NEGATIVE 12/09/2023 GLUCOSEU NEGATIVE 12/09/2023 KETUA TRACE (A) 12/09/2023 PROTEINU TRACE (A) 12/09/2023 HGBUR NEGATIVE 12/09/2023 CASTUA 2 TO 5 FINE GRANULAR 12/09/2023 CASTUA 2 TO 5 WAXY 12/09/2023 CASTUA 20 TO 50 HYALINE 12/09/2023 BACTERIA 2+ (A) 12/09/2023 Lactic Acid: Lab Results Component Value Date/Time LACTA 1.7 12/10/2023 12:40 AM LACTA 2.5 12/09/2023 10:34 PM High Sensitivity Troponin: Recent Labs 12/09/23 1817 12/09/23 2100 TROPHS 15* 14 Radiology/Imaging: CT ABDOMEN PELVIS WO CONTRAST Additional Contrast? None Final Result Fluid-filled colon consistent with diarrheal state. CT Head WO Contrast Final Result No acute intracranial abnormality. No acute fracture in the cervical spine. CT THORACIC SPINE WO CONTRAST Final Result No acute bony abnormality is seen in the thoracic spine. Mild concavity of the T3 superior endplate with endplate sclerosis, could represent sequela of prior injury or degenerative change. Mild multilevel degenerative changes. 4 mm right lower lobe nodule. RECOMMENDATIONS: Fleischner Society guidelines for follow-up and management of incidentally detected pulmonary nodules: Nodule size less than 6 mm In a low-risk patient, no routine follow-up. In a high-risk patient, optional CT at 12 months. - Low risk patients include individuals with minimal or absent history of smoking and other known risk factors. - High risk patients include individuals with a history or smoking or known risk factors. Radiology 2017 http://pubs.rsna.org/doi/full/1 0.1148/radiol.6474729859 CT CERVICAL SPINE WO CONTRAST Final Result No acute intracranial abnormality. No acute fracture in the cervical spine. XR CHEST PORTABLE Final Result No acute cardiopulmonary process. ASSESSMENT: Principal Problem: TABITHA (acute kidney injury) (HCC) Active Problems: Diarrhea Sepsis (HCC) Salmonella bacteremia Resolved Problems: * No resolved hospital problems. * PLAN: I agree with the plan as outlined in the SALES AND PRODUCTION MANAGER/PA's note Disposition: Discharge plan is pending Please note that this chart was generated using voice recognition [employer] [facility] dictation software. Although every effort was made to ensure the accuracy of this automated mobile home servicer, some errors in mobile home servicer may have occurred. Sharon Pleitez MD 12/10/2023 8:12 PM Pt tachycardic on cardiac monitor technician. Vitals taken, fever of 102 noted at this time. See MAR. Pt arrived to room 325 via stretcher. Report received from AKIKO Cui. Pt A&Ox4. Vitals and admission assessment completed at this time, see flowsheet for more details. Pt navigator completed as well as home medications reviewed. Pt denies any pain. Pt states she had 1 liquid stool while in ER. Pt denies feeling lightheaded/dizzy at this time. Pt afebrile at this time. All needs met, call light within reach. Care ongoing. documented in this encounter [facility] 12-12-2023 Hospital Discharge instructions Cate Flannery RN - 12/12/2023 2:17 PM EDT Good nutrition is important when healing from an illness, injury, or surgery. Follow any nutrition recommendations given to you during your hospital stay. If you were given an oral nutrition supplement while in the hospital, continue to take this supplement at home. You can take it with meals, in-between meals, and/or before bedtime. These supplements can be purchased at most local grocery stores, pharmacies, and chain super-stores. If you have any questions about your diet or nutrition, call the hospital and ask for the dietitian. The following attachments cannot be sent through Care Everywhere.Renal Failure: Acute (Nigerian)documented in this encounter [facility] 10-11-2023 Note Left ankle: 1. Overlying casting/splint [...] Stable sclerosis at the distal 2nd metatarsal. [facility] 10-11-2023 Note Left ankle: 1. Overlying [...] Stable sclerosis at the distal 2nd metatarsal. [facility] 10-01-2023 History of Present illness Narrative Instructed on objectives and procedure of lexiscan/cardiolite stress test. documented in this encounter [facility] 02-26-[address] [place] [address] CONSULTATION PATIENT NAME: NATASHA BEAUCHAMP : 1955 MED REC NO: [id number] ROOM: [id number] ACCOUNT NO: [id number] ADMIT DATE: 02/25/2023 PROVIDER: Kirk Pardo CONSULT [...] Tylenol and anti-inflammatories as needed. KIRK PARDO [id number] Doc#: [id number] [facility] 05-10-2022 History of Present illness Narrative Explained Holter monitor and diary. documented in this encounter HUMAIRA THAKKAR [facility] Phone: Evaluation note Diagnosis Dyspnea, unspecified type documented in this encounter [employer] Phone: evaluation note* Diagnosis Iron deficiency anemia secondary to inadequate dietary iron intake Other specified intestinal malabsorption [facility]* Diagnosis Tachycardia, unspecified documented in this encounter [facility] [employer] Phone: evalxfquhy note* Diagnosis Abnormal results of liver function studies Nonspecific abnormal results of liver function study documented in this encounter [facility] [employer] Phone: [email or web address] note* Diagnosis Iron deficiency anemia secondary to inadequate dietary iron intake Microcytic anemia Iron deficiency anemia, unspecified documented in this encounter [facility] [employer] note* Diagnosis Fall, initial encounter- Primary Closed fracture of left ankle, initial encounter Dehydration Lightheadedness Dizziness and giddiness Closed fracture of metatarsal bone of left foot, physeal involvement unspecified, unspecified metatarsal, initial encounter documented in this encounter [facility] [employer] note* Diagnosis Onset Date Resolution Status Osteoporosis [facility] Work Phone: Evaluation note* Diagnosis Fractures Closed fracture of unspecified bone [facility] Diagnosis Lightheadedness Dizziness and giddiness Dizziness Dizziness and giddiness Palpitations SOB (shortness of breath) Shortness of breath Abnormal EKG Nonspecific abnormal electrocardiogram (ECG) (EKG) Former smoker Personal history of tobacco use, presenting hazards to health Family history of premature CAD Family history of ischemic heart disease [facility]* Diagnosis Lightheadedness Dizziness and giddiness Dizziness Dizziness and giddiness Palpitations SOB (shortness of breath) Shortness of breath Abnormal EKG Nonspecific abnormal electrocardiogram (ECG) (EKG) Former smoker Personal history of tobacco use, presenting hazards to health Family history of premature CAD Family history of ischemic heart disease [facility]* Diagnosis Iron deficiency anemia secondary to inadequate dietary iron intake [facility]* Diagnosis Fracture Closed fracture of unspecified bone [facility]* Diagnosis Onset Date Resolution Status Fibromyalgia acute Foot fracture, left acute Osteoporosis acute Pernicious anemia [facility] Work Phone: Evaluation note* Diagnosis TABITHA (acute kidney injury) (HCC)- Primary Acute kidney failure, unspecified Septicemia (HCC) Unspecified septicemia TABITHA (acute kidney injury) (HCC) Acute kidney failure, unspecified Diarrhea, unspecified type Dehydration Salmonella food poisoning Salmonella gastroenteritis Salmonella bacteremia Salmonella septicemia Diarrhea Sepsis (HCC) Salmonella bacteremia Salmonella septicemia Salmonella food poisoning Salmonella gastroenteritis [facility]* Diagnosis Salmonella bacteremia- Primary Salmonella septicemia Salmonella food poisoning Salmonella gastroenteritis documented in this encounter [facility] note* Diagnosis Onset Date Resolution Status Anxiety acute Fibromyalgia acute Foot fracture, left acute Pernicious anemia acute Left arm swelling acute [facility] Work Phone: Hospital Discharge instructions* Attachments The following attachments cannot be sent through Care Everywhere. * Lightheadedness or Faintness (Nigerian) * Fall Prevention (Nigerian) * Dehydration (Nigerian) * Ankle Fracture (Nigerian) * Splint or Immobilizer Use (Nigerian) * Metatarsal Fracture (Nigerian) [facility] N[facility]* Treatment Plan and Therapy Plan (Routine) - Open Specialty Diagnoses / Procedures Referred By Guillaume hicks Referred To Contact Diagnoses Salmonella bacteremia Salmonella food poisoning Trish-Bridget Lowry, VRT MECHANIC - ANIMAL BEHAVIORIST [address] [place] [phone] [facility] [address] [place] [address] Referral ID Status Reason Start Date Expiration Date Visits Re quested Visits Authorized [id number] Open 12/12/2023 12/11/2024 1 1 [facility] Assessments Diagnosis Microcytic anemia Iron deficiency anemia, unspecified Diagnosis Microcytic anemia Iron deficiency anemia, unspecified Findings Encounter Date Encounter for Immunization 1st COVID Vaccine kailash Sanabria PharmD 06/16/2020 Advance Directives No Advanced Directives Records FoundDocuments on File Type Date Recorded Patient Ppa Teacher Expl anation Advance Directives and Living Will Power of Leather Seasoner Documents on File Type Date Recorded Patient Ppa Teacher Expl anation ACP-Advance Directive ACP-Power of Leather Seasoner Advance Directive Response Recorded Date/ Time Advance Directives No August 29 2:14pm Documents on File Type Date Recorded Patient Ppa Teacher Expl anation ACP-Advance Directive 10/11/2023 11:32 AM Date Activated Date Inactivated Comments 12/10/2023 1:29 AM Healthcare Agents on File Name Relationship Healthcare Agent Damno beyer Communication Sheila Beauchamp Child Primary Decision Maker Documents on File Type Date Recorded Patient Ppa Teacher John quintero ACP-Advance Directive 10/11/2023 11:32 AM Date Activated Date Inactivated Comments 12/10/2023 1:29 AM 12/12/2023 6:44 PM Healthcare Agents on File Name Relationship Healthcare Agent Damon beyer Communication Sheila Beauchamp Child Primary Decision Maker Reason for Referral Specialty Diagnoses / Procedures Referred By Contac t Referred To Contact Cardiology Diagnoses Tachycardia, unspecified Procedures Holter Monitor 24 Hour Linette Diaz, DO [address] [place] [phone] Referral ID Status Reason Start Date Expiration Date Visits Re quested Visits Authorized [id number] Closed 05/09/2022 05/09/2023 1 1 Specialty Diagnoses / Procedures Referred By Contac t Referred To Contact Radiology Diagnoses Abnormal results of liver function studies Procedures US LIVER Linette Diaz, DO [address] [place] [phone] Referral ID Status Reason Start Date Expiration Date Visits Re quested Visits Authorized [id number] Closed 05/05/2022 05/05/2023 1 1 Specialty Diagnoses / Procedures Referred By Contac t Referred To Contact Diagnoses Lightheadedness Dizziness Palpitations SOB (shortness of breath) Abnormal EKG Former smoker Family history of premature CAD Procedures Extended cardiac holter monitor (3 days-14 day) WA EXTERNAL ECG REC>48HR<7D REVIEW & INTERPRETATION WA EXTERNAL ECG REC>48HR<7D RECORDING WA EXTERNAL ECG REC>7D<15D RECORDING WA EXTERNAL ECG REC>7D<15D REVIEW & INTERPRETATION Monique Paz MD [address] [place] [address] [place] [address] Referral ID Status Reason Start Date Expiration Date V isits Requested Visits Authorized [id number] Not Required - RTA 09/25/2023 09/24/2024 1 1 Specialty Diagnoses / Procedures Referred By Contac t Referred To Contact Diagnoses Lightheadedness Dizziness Palpitations SOB (shortness of breath) Abnormal EKG Former smoker Family history of premature CAD Procedures Nuclear stress test with myocardial perfusion Monique Paz MD [address] [place] [address] [place] [address] Referral ID Status Reason Start Date Expiration Date Visits Re quested Visits Authorized [id number] Open 09/25/2023 09/24/2024 3 3 Instructions Instructions not supported for this document type No Instructions Recorded History of Present Illness History of Present Illness not supported for this document type No History of Present Illness Recorded Family History No Family History Records Found Relationship Condition Age at Onset Recorded Date/T vonda Not Specified Malignant neoplasm Unknown father Diabetes mellitus Unknown Heart disease Unknown Hypertension Unknown Myocardial infarction Unknown sister Diabetes mellitus Unknown brother Heart disease Unknown Relationship Condition Age at Onset Recorded Date/T vonda mother Malignant neoplasm Unknown father Diabetes mellitus Unknown [...] Complaint est care Reason for Visit Osteoporosis Chief Complaint est care Discuss Prescriptions Reason for Visit Fibromyalgia Foot fracture, left Osteoporosis Pernicious anemia Chief Complaint Discuss Prescription s [facility]:Acute Kidney Injury Reason for Visit Anxiety Fibromyalgia Foot fracture, left Pernicious anemia Left arm swelling Additional Source Comments Medical History (unrecognize d section and content) Includes: Medical History in patient's chartNo Medical History Recorded Evaluations & Outcomes (unre cognized section and content) Includes: Evaluations & Outcomes for active GoalsNo Outcomes Recorded Care Teams (unrecognized sec tion and content) Substation Technician Relationship Specialty Start Date End Date Linette Diaz, DO [address] [place] [phone] PCP - General Family Medicine 07/26/18 Substation Technician Relationship Specialty Start Date End Date Linette Diaz, DO [address] [place] [phone] PCP - General Family Medicine 07/26/18 Substation Technician Relationship Specialty Start Date End Date Linette Diaz, DO [address] [place] [address], [place] [phone] PCP - General Family Medicine 07/26/18 Substation Technician Relationship Specialty Start Date End Date Linette Diaz, DO [address] [place] [address], [place] [phone] PCP - General Family Medicine 07/26/18 Substation Technician Relationship Specialty Start Date End Date Linette Diaz, DO [address] [place] [address], [place] [phone] PCP - General Family Medicine 07/26/18 Substation Technician Relationship Specialty Start Date End Date Linette Diaz, DO [address] [place] [address], [place] [phone] PCP - General Family Medicine 07/26/18 Substation Technician Relationship Specialty Start Date End Date Linette Diaz DO [address] [place] [address], [place] [phone] PCP - General Family Medicine 07/26/18 Team Status: Active Member Role Status Dates Rick Amin MD Primary Care Provider Active Team Status: Inactive Member Role Status Dates Rick Amin MD Primary Care Provide r, Attending Provider Active Start: September 05, 2023 End: September 05, 2023 Substation Technician Relationship Specialty Start Date End Date Rick Amin MD [address] [place] [facility] [phone] PCP - General Family Medicine 09/17/23 Substation Technician Relationship Specialty Start Date End Date Rick Amin MD [address] [place] [facility] [phone] PCP - General Family Medicine 09/17/23 Substation Technician Relationship Specialty Start Date End Date Rick Amin MD [address] [place] [facility] [phone] PCP - General Family Medicine 09/17/23 Substation Technician Relationship Specialty Start Date End Date Rick Amin MD [address] [place] [facility] [phone] PCP - General Family Medicine 09/17/23 Substation Technician Relationship Specialty Start Date End Date Rick Amin MD [address] [place] [facility] [phone] PCP - General Family Medicine 09/17/23 Substation Technician Relationship Specialty Start Date End Date Rick Amin MD [address] [place] [facility] [phone] PCP - General Family Medicine 09/17/23 Team Status: Inactive Member Role Status Dates Rick Amin MD Primary Care Provide r, Attending Provider Active Start: November 30, 2023 End: November 30, 2023 Substation Technician Relationship Specialty Start Date End Date Rick Amin MD [address] [place] [facility] [address] PCP - General Family Medicine 09/17/23 Substation Technician Relationship Specialty Start Date End Date Rick Amin MD [address] [place] [facility] [address] PCP - General Family Medicine 09/17/23 Team Status: Inactive Member Role Status Dates Rick Amin MD Primary Care Provide r, Attending Provider Active Start: December 17, 2023 End: December 17, 2023 INFORMATION SOURCE (unrecogn ized section and content) DATE CREATED AUTHOR 04/16/2021 [facility] DATE CREATED AUTHOR AUTHOR'S ORGANIZ ATION 12/19/2023 Nancy Mitchell [facility] Reason for Visit (unrecogniz ed section and content) Specialty Diagnoses / Procedures Referred By Guillaume t Referred To Contact Cardiology Diagnoses Tachycardia, unspecified Procedures Holter Monitor 24 Hour Linette Diaz, DO [address] [place] [phone] Referral ID Status Reason Start Date Expiration Date Visits Re quested Visits Authorized [id number] Closed 05/09/2022 05/09/2023 1 1 Specialty Diagnoses / Procedures Referred By Guillaume t Referred To Contact Radiology Diagnoses Abnormal results of liver function studies Procedures US LIVER Linette Diaz, DO [address] [place] [address] Referral ID Status Reason Start Date Expiration Date Visits Re quested Visits Authorized [id number] Closed 05/05/2022 05/05/2023 1 1 Reason Comments Ankle Pain Left- onset after fa lling to carpeted [place]- pt denies hitting head or LOC Dizziness Ongoing for 2 months - has been tachycardic and is scheduled to see Dr Paz in September. States dizziness caused the fall. Specialty Diagnoses / Procedures Referred By Guillaume hicks Referred To Contact Diagnoses Lightheadedness Dizziness Palpitations SOB (shortness of breath) Abnormal EKG Former smoker Family history of premature CAD Procedures Extended cardiac holter monitor (3 days-14 day) WA EXTERNAL ECG REC>48HR<7D REVIEW & INTERPRETATION WA EXTERNAL ECG REC>48HR<7D RECORDING WA EXTERNAL ECG REC>7D<15D RECORDING WA EXTERNAL ECG REC>7D<15D REVIEW & INTERPRETATION Monique Paz MD [address] [place] [address] [place] [address] Referral ID Status Reason Start Date Expiration Date V isits Requested Visits Authorized [id number] Not Required - RTA 09/25/2023 09/24/2024 1 1 Specialty Diagnoses / Procedures Referred By Guillaume hicks Referred To Contact Diagnoses Lightheadedness Dizziness Palpitations SOB (shortness of breath) Abnormal EKG Former smoker Family history of premature CAD Procedures Nuclear stress test with myocardial perfusion Monique Paz MD [address] [place] [address] [place] [phone] Referral ID Status Reason Start Date Expiration Date Visits Re quested Visits Authorized [id number] Open 09/25/2023 09/24/2024 3 3 Reason Comments Loss of Consciousness Pt reports intermi ttent episodes of syncope since last night. Pt unsure of head injury (denies pain), pt c/o left elbow injury/pain. Pt reports new onset loose stools starting last night. Pt reports similar episodes of syncope with no dx pertaining to s/s. EMS reports low SBP 60/70, admin 100cc NS. Pt bp on arrival 92/47. Scheduled Active and Recently Administ ered Medications [...] RN)1738 (Stopped - Provider: Basilia Kenney RN) Scheduled Medication Order 12/10/2023 12/11/2023 12/12/2023 cefTRIAXone (ROCEPHIN) 2,000 mg in sodium chloride 0.9 % 50 mL IVPB ([id number]) 2,000 mg, IntraVENous, EVERY 24 HOURS, First dose on Sun12/10/23 at 1600, Until Discontinued, Antimicrobial Indications: Bloodstream Infection 1601 (New Bag - Provider: Tee Costello)1648 (Stopped - Provider: Tee Costello) 1526 (New Bag - Provider: Vanda Archibald, RN)1601 (Stopped - Provider: Vanda Archibald, RN) 1455 (New Bag - Provider: Kayce San[place], AKIKO)1525 (Stopped - Provider: Kayce Sanford RN) cyclobenzaprine (FLEXERIL) tablet 10 mg 10 mg, Oral, DAILY, First dose on Sun12/10/23 at 0900, Until Discontinued 957 (Given - Provider: Tee Costello) 2018 (Given - Provider: Juana Nguyen RN) 2099 (Due - Provider: Tyra Ruth [facility]) DULoxetine (CYMBALTA) extended release capsule 20 mg 20 mg, Oral, DAILY, First dose on Sun12/10/23 at 0900, Until Discontinued, Do not crush or break. May add contents of capsule to apple juice or apple sauce, but not chocolate. 958 (Given - Provider: Tee Costello) 2018 (Given - Provider: Juana Nguyen RN) 2099 (Due - Provider: Tyra Ruth [facility]) enoxaparin Sodium (LOVENOX) injection 30 mg 30 mg, SubCUTAneous, DAILY, First dose on Sun12/10/23 at 0900, Until Discontinued, Indication of Use: Prophylaxis-DVT/PE 958 (Not Given - Provider: Tee Costello - Reason: Patient/family refused) 07 (Not Given - Provider: Vanda Archibald RN - Reason: Patient/family refused) 08 (Given - Provider: Kayce Sanford RN) escitalopram (LEXAPRO) tablet 10 mg 10 mg, Oral, DAILY, First dose on Sun12/10/23 at 0900, Until Discontinued 958 (Not Given - Provider: Tee Costello - Reason: Patient/family refused) 2028 (Not Given - Provider: Juana Nguyen RN - Reason: Patient/family refused) 2099 (Due - Provider: Elodia Huggins [facility]) pantoprazole (PROTONIX) 40 mg in sodium chloride (PF) 0.9 % 10 mL injection 40 mg, IntraVENous, DAILY, First dose on Sun12/10/23 at 0900, Reconstitute with 10 mL 0.9 % sodium chloride and administer over at least 2 minutes. 0958 (Given - Provider: Tee Costello) 0842 (Given - Provider: Vanda Archibald RN) 08 (Given - Provider: Kayce Sanford RN) piperacillin-tazobactam (ZOSYN) 3,375 mg in sodium chloride 0.9 % 50 mL IVPB ([id number]) (CANCELED) 3,375 mg, IntraVENous, EVERY 8 HOURS, First dose on Sun12/10/23 at 0700, Until Discontinued, Antimicrobial Indications: Sepsis of Unknown Etiology, Sepsis duration of therapy: 7 days 0700 (New Bag - Provider: Tee Costello)1226 (Stopped - Provider: Tee Costello)1439 (New Bag - Provider: Tee Costello)1558 (Stopped - Provider: Tee Costello) potassium bicarb-citric acid (EFFER-K) effervescent tablet 40 mEq (COMPLETED) 40 mEq, Oral, ONCE, 1 dose, On Sun12/11/23 at 0915, Do not chew or crush. Dissolve flavored tablets completely in 3 to 4 ounces of cold water; unflavored tablets may be dissolved in 3 to 4 ounces of cold juice. Patient to sip slowly over a 5 to 10 minute period. May further dilute if GI adverse effects occur. 910 (Given - Provider: Vanda Archibald RN) potassium bicarb-citric acid (EFFER-K) effervescent tablet 40 mEq (COMPLETED) 40 mEq, Oral, ONCE, 1 dose, On Sun12/12/23 at 1200, Do not chew or crush. Dissolve flavored tablets completely in 3 to 4 ounces of cold water; unflavored tablets may be dissolved in 3 to 4 ounces of cold juice. Patient to sip slowly over a 5 to 10 minute period. May further dilute if GI adverse effects occur. 1144 (Given - Provider: Kayce Sanford RN) sertraline (ZOLOFT) tablet 50 mg 50 mg, Oral, DAILY, First dose on Sun12/10/23 at 0900, Until Discontinued 958 (Not Given - Provider: Tee Costello - Reason: Patient/family refused) 0738 (Not Given - Provider: Vanda Archibald RN - Reason: Patient/family refused) 0811 (Not Given - Provider: Kayce Sanford RN - Reason: Patient/family refused) sodium chloride flush 0.9 % injection 10 mL 10 mL, IntraVENous, EVERY 12 HOURS SCHEDULED (2 times per day), First dose on Sun12/10/23 at 0900, Until Discontinued 59 (Given - Provider: Tee Costello)2221 (Not Given - Provider: Juana Nguyen RN - Reason: IV Fluid Infusing) 0823 (Not Given - Provider: Vanda Archibald RN - Reason: IV Fluid Infusing)2030 (Not Given - Provider: Juana Nguyen RN - Reason: IV Fluid Infusing) 08 (Given - Provider: Kayce Sanford, AKIKO)2100 (Due) tiotropium-olodaterol (STIOLTO) 2.5-2.5 MCG/ACT inhaler 2 puff 2 puff, Inhalation, DAILY, First dose on Sun12/10/23 at 0900, Until Discontinued, Substituted for Umeclidinium-Vilanterol (ANORO ELLIPTA). 0937 (Given - Provider: Virginie Avtiia QA DEVELOPER) 0755 (Given - Provider: Mami Steward QA DEVELOPER) 1008 (Given - Provider: Lia Luz QA DEVELOPER) Continuous Medication Order 12/10/2023 12/11/2023 12/12/2023 0.9 % sodium chloride infusion (CANCELED) IntraVENous, at 100 mL/hr, CONTINUOUS, Starting on Sun12/10/23 at 0145, For 48 hours 0134 (New Bag - Provider: Mindy Pedro RN)1226 (New Bag - Provider: Tee Costello)1557 (Stopped - Provider: Tee Costello) 0.9% NaCl with KCl 20 mEq infusion IntraVENous, at 125 mL/hr, CONTINUOUS, Starting on Sun12/10/23 at 1600 1557 (New Bag - Provider: Tee Costello) 0115 (New Bag - Provider: Juana Nguyen, AKIKO)1957 (New Bag - Provider: Dilia Byrne, AKIKO) 0445 (New Bag - Provider: Dilia Byrne, AKIKO)1412 (Stopped - Provider: Kayce [place], AKIKO) PRN Medication Order 12/10/2023 12/11/2023 12/12/2023 0.9 % sodium chloride infusion IntraVENous, at 5-250 mL/hr, PRN, if patient receiving piggyback infusions and maintenance fluids are not ordered OR KVO fluids to protect IV site / prevent frequent line interruptions/ long duration, Starting on Sun12/10/23 at 0129, For piggyback infusion, administer at same rate as piggyback for a total of 25 mL. Enter 25 mL into dose field and piggyback rate into rate field of order. If piggyback is infusing at a rate less than 100 mL/hr, enter 25 mL into dose field and 100 mL/hr into rate field of order. For KVO fluids, enter rate of 20 mL/hr or less into rate field of order. acetaminophen (TYLENOL) suppository 650 mg(Linked Group 1) 650 mg, Rectal, EVERY 6 HOURS PRN, Starting on Sun12/10/23 at 0129, Until Discontinued, Pain Mild (1-3), Fever, For temp greater than 100.4 F (38 C), Administer if oral route cannot be used. 0442 (See Alternative - Provider: Mindy Pedro RN)1110 (See Alternative - Provider: Tee Costello)1606 (See Alternative - Provider: Tee Costello)2218 (See Alternative - Provider: Juana Nguyen, AKIKO) acetaminophen (TYLENOL) tablet 650 mg(Linked Group 1) 650 mg, Oral, EVERY 6 HOURS PRN, Starting on Sun12/10/23 at 0129, Until Discontinued, Pain Mild (1-3), Fever, For temp greater than 100.4 F (38 C), Maximum dose of acetaminophen is 4000 mg from all sources in 24 hours. 0442 (Given - Provider: Mindy Pedro RN)1110 (Given - Provider: Tee Costello)1606 (Given - Provider: Tee Costello)2218 (Given - Provider: Juana Nguyen, AKIKO) albuterol sulfate HFA (PROVENTIL;VENTOLIN;PROA IR) 108 (90 Base) MCG/ACT inhaler 2 puff 2 puff, Inhalation, EVERY 6 HOURS PRN, Starting on Sun12/10/23 at 0129, Until Discontinued, Wheezing, Initiate RT Bronchodilator Protocol: Yes - Inpatient Protocol butalbital-acetaminophen -caffeine (FIORICET, ESGIC) per tablet 1 tablet 1 tablet, Oral, EVERY 4 HOURS PRN, Starting on Sun12/10/23 at 0129, Until Discontinued, Headaches, Maximum dose of acetaminophen is 4000 mg from all sources in 24 hours. 0649 (Given - Provider: Tee Costello) 1524 (Given - Provider: Vanda Archibald RN) 1101 (Given - Provider: Kayce Sanford RN) diphenoxylate-atropine (LOMOTIL) 2.5-0.025 MG per tablet 1 tablet 1 tablet, Oral, 4 TIMES DAILY PRN, Starting on Sun12/10/23 at 1937, Until Discontinued, Diarrhea 2218 (Given - Provider: Juana Nguyen, RN) 0911 (Given - Provider: Vanda Archibald, RN)1302 (Given - Provider: Vanda Archibald, RN)1735 (Given - Provider: Vanda Archibald, RN)2237 (Given - Provider: Maricel Jay RN) 0812 (Given - Provider: Kayce Sanford RN) ondansetron (ZOFRAN) injection 4 mg(Linked Group 2) 4 mg, IntraVENous, EVERY 6 HOURS PRN, Starting on Sun12/10/23 at 0129, Until Discontinued, Nausea, Vomiting, Administer if oral route cannot be used. ondansetron (ZOFRAN-ODT) disintegrating tablet 4 mg(Linked Group 2) 4 mg, Oral, EVERY 8 HOURS PRN, Starting on Sun12/10/23 at 0129, Until Discontinued, Nausea, Vomiting sodium chloride flush 0.9 % injection 10 mL 10 mL, IntraVENous, PRN, Starting on Sun12/10/23 at 0129, Until Discontinued, Line Care, After every IV line use SUMAtriptan (IMITREX) tablet 50 mg 50 mg, Oral, 2 TIMES DAILY PRN, Starting on Sun12/10/23 at 0129, Until Discontinued, Migraine, Maximum dose: 100 mg/dose; 200 mg per 24 hours. Linked Groups Order Group 1: acetaminophen (TYLENOL) tablet 650 mgJump to med 650 mg, Oral, EVERY 6 HOURS PRN, Starting on Sun12/10/23 at 0129, Until Discontinued, Pain Mild (1-3), Fever, For temp greater than 100.4 F (38 C), Maximum dose of acetaminophen is 4000 mg from all sources in 24 hours. Or acetaminophen (TYLENOL) suppository 650 mgJump to med 650 mg, Rectal, EVERY 6 HOURS PRN, Starting on Sun12/10/23 at 0129, Until Discontinued, Pain Mild (1-3), Fever, For temp greater than 100.4 F (38 C), Administer if oral route cannot be used. Group 2: ondansetron (ZOFRAN-ODT) disintegrating tablet 4 mgJump to med 4 mg, Oral, EVERY 8 HOURS PRN, Starting on Sun12/10/23 at 0129, Until Discontinued, Nausea, Vomiting Or ondansetron (ZOFRAN) injection 4 mgJump to med 4 mg, IntraVENous, EVERY 6 HOURS PRN, Starting on Sun12/10/23 at 0129, Until Discontinued, Nausea, Vomiting, Administer if oral route cannot be used. Goals (unrecognized section and content) Goals may be documented in a n alternate section Ordered Prescriptions (unrec ognized section and content) Prescription Sig Dispensed Refills Start Date End Da te potassium chloride (KLOR-CON M) 20 MEQ extended release tablet Take 1 tablet by mouth daily for 5 days 5 tablet 12/12/2023 12/17/2023 cefTRIAXone (ROCEPHIN) infusionIndications:S almonella food poisoning,Salmonella bacteremia Infuse 2,000 mg intravenously every 24 hours for 4 days Compound per protocol. Flush Midline/PICC Line with Normal Saline/Heparin flush per Protocol. Dressing Change per protocol. Remove Midline after last infusion. 8 g 12/13/2023 12/17/2023 diphenoxylate-atropin e (LOMOTIL) 2.5-0.025 MG per tabletIndications:Ruel monella food poisoning Take 1 tablet by mouth 4 times daily as needed for Diarrhea for up to 10 days. Max Daily Amount: 4 tablets 15 tablet 12/12/2023 12/22/2023 FOR RECORDS PERTAINING TO PATIENTS WHO ARE [...] BE BASED ON THE PRIMARY CLINICAL RECORDS. [facility]. provides no warranty or guarantee of the accuracy or completeness of information in this document.
--- NOTE | 2023-12-19 19:13 | US_ITS ---
The [address] [address] Patient Name: NATASHA BUNN MRN: [id number] date: 1955 Sex: F Assigned Patient Location: US Current Patient Location: US Accession/Order Number: [id number] Exam Date: 12/19/2023 19:15 Report Date: 12/20/2023 10:26 At the request of: RICK AMIN Procedure: US venous doppler UE LT EXAM: US venous doppler UE LT HISTORY: SWELLING OF LEFT UPPER EXTREMITY. M79.89. COMPARISON: None. TECHNIQUE: Daniels-scale, color Doppler, and spectral Doppler waveform analysis was performed. FINDINGS: The internal jugular vein is compressible. The subclavian vein demonstrates normal color flow and waveform analysis. The axillary, brachial, radial, and ulnar veins are compressible. Note is made of superficial venous thrombus involving the proximal and distal segment of the cephalic and basilic veins. US/US venous doppler UE LT IMPRESSION: Superficial venous thrombosis involving the cephalic and basilic veins. No deep venous thrombosis. Electronically authenticated by: Noah KOEHLER Date: 12/20/2023 10:26
== END 2023-12-19 17:46 | disposition home or self-care (01) ==
LOC: US 17:46
PROVIDERS: PCP Family Medicine; Visit Provider Family Medicine
DX: R22.32 Localized swelling, mass and lump, left upper limb (principal); I82.612 Acute embolism and thrombosis of superficial veins of left upper extremity
CPT/HCPCS: 93931; 93971

== ENCOUNTER 2024-01-14 08:49 | Outpatient (OUT) | payer MEDICARE, SELFPAY ==
--- OUTSIDE RECORDS SUMMARY | 2024-01-14 09:11 | XMS_ITS | CCD ---
Author Organization [facility] Care Team Providers Care Lathmaker Name Role Phone Linette Diaz Primary Care Provider [phone] Unavailable Unavailable Unavailable Linette Diaz DO Primary Care Provider [phone] BER[place] DERAS Attending Unavailable BERLIN DERAS Consulting Unavailable BERLIN DERAS Admitting Unavailable DR SRAVANI GAMEZ Primary Care Unavailable Linette Diaz DO Primary Care Provider [phone] Linette Diaz DO Primary Care Provider [phone] Linette Diaz DO Primary Care Provider Rick Amin MD Primary Care Provider [phone] RICK AMIN Primary Care Unavailable DEL BALDWIN Referring Unavailable AMIN, RICK Primary Care Unavailable ERI, ALI F O Referring Unavailable AMIN, RICK Primary Care Unavailable JOSE ANGEL GONZALEZ Referring Unavailable AMIN, RICK Primary Care Unavailable BRIDGET HALL Referring Unavail able AMIN, RICK Primary Care Unavailable BRIDGET HALL Referring Unavail able AMIN, RICK Primary Care Unavailable JOSE ANGEL GONZALEZ W Referring Unavailable AMIN, RICK Primary Care Unavailable AHMAD, ALI F O Referring Unavailable AMIN, RICK Primary Care Unavailable CONSDORYS JOSE ANGEL W Referring Unavailable AMIN, RICK Primary Care Unavailable CONSDORYS, JOSE ANGEL W Referring Unavailable AMIN, RICK Primary Care Unavailable BRIDGET HALL Referring Unavail able AMIN, RICK Primary Care Unavailable ELOISA, RICK Referring Unavailable LINETTE DIAZ Referring Unavailable JOE, LINETTE Tran Primary Care Unavailable AMIN, RICK Primary Care Unavailable CONSDORYS JOSE ANGEL W Referring Unavailable AMIN, RICK Primary Care Unavailable AHMAD, ALI F O Referring Unavailable AMIN, RICK Primary Care Unavailable AHMAD, ALI F O Referring Unavailable AMIN, RICK Primary Care Unavailable TRISH-ESSENCE, BRIDGET A Referring Unavail able AMIN, RICK Primary Care Unavailable BRIDGET HALL Referring Unavail able AMIN, RICK Primary Care Unavailable JOSE ANGEL GONZALEZ Referring Unavailable AMIN, RICK Primary Care Unavailable AHMAD, ALI F O Referring Unavailable JOE, LINETTE F Primary Care Unavailable RUSSELL HOBSON Attending Unavailable RUSSELL HOBSON Admitting Unavailable RUSS MANNING Attending Unavailable JOE, LINETTE F Primary Care Unavailable AMIN, RICK Primary Care Unavailable SHARON PLEITEZ Admitting Unavailable MARTHA HILLMAN Consulting Unavailable KALPANA WHITTINGTON Attending Unavailable AMIN, RICK Primary Care Unavailable AHMAD, ALI F O Referring Unavailable JOE, LINETTE F Referring Unavailable JOE, LINETTE F Primary Care Unavailable Allergies Allergy Classification Reported Allergen(s) Allergy Type Date of Onset Reaction(s) Facility denosumab (3 sources) denosumab Drug Allergy 9 Other (See Comments) [facility] Macrolides (antibiotic) (3 sources) Azithromycin Drug Allergy 9 [facility] zoledronic acid (3 sources) zoledronic acid Drug Allergy 9 Other (See Comments) [facility] (20 sources) Azithromycin Drug Allergy 9 [place], [place] (20 sources) denosumab Drug Allergy 9 Other (See Comments) [place], [place] (20 sources) zoledronic acid Drug Allergy 9 Other (See Comments) [place] (1 source) Azithromycin Drug Allergy 9 [facility] (1 source) denosumab Drug Allergy 0 [facility] (1 source) zoledronic acid Drug Allergy 1 [facility] Medications Current Medications Medication Drug Class(es) [...] hours as needed for Pain. 0 Active [id number] 200 actuat albuter ol 0.09 mg/actuat metered [...] mouth every other week vitamin D (ERGOCALCIFEROL) 07012 UNITS CAPS capsule Take 1 capsule by [...] CONTINUOUS, Starting on Sun12/10/23 at 1600 [place] (Bd Eclipse Luer-Ciro) 30 x 1/2 needle (4 sources) Start: 10-30-2023 [place] (Bd Eclipse Luer-Ciro) 30 x 1/2 needle Active 0 .Route 3 October 30, 2023 2:23pm 1 injection monthly Start: 09-18-2023 End: 10-30-2023 [place] (Bd Eclipse L uer-Ciro) 30 x 1/2 [...] 1 capsule by mouth every eight hours Gjjadzkgqc-Rkfftqotqglcn-Gcco (Fioricet) 50-300-40 mg capsule Discontinued 1 CAP [...] sodium chloride 0.9 % 50 mL IVPB ([id number]) (2 sources) Start: 12-14-2023 End: 12-14-2023 2,000 [...] sodium chloride 0.9 % 50 mL IVPB ([id number]) (2 sources) Start: 12-10-2023 End: 12-10-2023 Start: [...] Results Test Name Value Interpretation Reference Range Facil josh Suh Miscellaneouson 2023 Micro Send Out Rpt Testing performed at [facility] Hologic [facility] Comment on above: Result Comment: (NOT E) Patient Report Patient: NATASHA BEAUCHAMP : 1955 Sex: Female Patient Identifiers: [id number], [id number] Visit Number (FIN): [id number] Collection Date: 12/11/2023 11:24:00 AM PHYSICIAN: REBECCA WHITTINGTON Antimicrobial Susceptibility - Anaerobe [facility] test code [id number] Collected: 12/11/2023 11:24 MT Started: 12/18/2023 16:28 MT Source: Stool Body Site: Colon Free Text Sources: Stool Final Report Salmonella species Organism identified by client Susceptibility Results Organism: Salmonella species Ampicillin Interpretation: SUSCEPTIBLE ELLEN (ug/mL): <=4 - - - - - - - - - - - - - - - - - - - - - - - - - - - - - - Ciprofloxacin Interpretation: SUSCEPTIBLE ELLEN (ug/mL): 0.016 - - - - - - - - - - - - - - - - - - - - - - - - - - - - - - Trimethoprim/Sulfamethoxazole Interpretation: SUSCEPTIBLE ELLEN (ug/mL): <=0.5/9.5 - - - - - - - - - - - - - - - - - - - - - - - - - - - - - - Interpretive Results INTERPRETIVE INFORMATION: Anaerobe Susceptibility Panel Units = ug/mL Antimicrobial Susceptibility - Anaerobe COLLECTED 12/11/2023 11:24 S=Susceptible, NonS=Nonsusceptible, IND=Indeterminate, I=Intermediate, SDD=Susceptibility is dose dependent, R=Resistant, None=Interpretive guidelines are not available Performed By: #### U MICAO, UAX #### [facility] [address] [place], [place] [phone] Sales Professional Bilingual: Sravani Gordon MD Basic Metabolic Profon 12-16 Anion gap [Moles/Vol] 11 mmol/L Normal 9-16 [facility] Comment on above: Performed By: #### T SHX #### [facility] [address] [place], [place] [phone] Sales Professional Bilingual: rSavani Gordon MD BUN/CRE Ratio 6 Low 9-20 [facility] Comment on above: Performed By: #### T SHX #### [facility] [address] [place], [place] [phone] Sales Professional Bilingual: Sravani Gordon MD Calcium [Mass/Vol] 9.4 mg/dL Normal 8.6-10.4 [facility] Comment on above: Performed By: #### T SHX #### [facility] [address] [place], [place] [phone] Sales Professional Bilingual: Sravani Gordon MD Chloride [Moles/Vol] 108 mmol/L High 98-107 [facility] Comment on above: Performed By: #### T SHX #### [facility] [address] [place], [place] [phone] Sales Professional Bilingual: Sravani Gordon MD CO2 [Moles/Vol] 23 mmol/L Normal 20-31 [facility] Comment on above: Performed By: #### T SHX #### [facility] [address] [place], [place] [phone] Sales Professional Bilingual: Sravani Gordon MD Creatinine [Mass/Vol] 0.7 mg/dL Normal 0.50-0.90 [facility] Comment on above: Performed By: #### T SHX #### [facility] [address] [place] [address] Sales Professional Bilingual: Sravani Gordon MD GFR/1.73 sq M.predicted among non-blacks MDRD (S/P/Bld) [Vol rate/Area] mL/min/{1.73_m2} Normal >60 [facility] Comment on above: Result Comment: These [...] renal tubular secretion. Performed By: #### T SHX #### [facility] [address] [place] [address] [place] [address] Sales Professional Bilingual: Sravani Gordon MD Glucose [Mass/Vol] 174 mg/dL High 74-99 [facility] Comment on above: Performed By: #### T SHX #### [facility] [address] [place], [place] [phone] Sales Professional Bilingual: Sravani Gordon MD Potassium [Moles/Vol] 3.0 mmol/L Low 3.7-5.3 [facility] Comment on above: Performed By: #### T SHX #### [facility] [address] [place] [address] Dr[address] [place], [place] [phone] Sales Professional Bilingual: Sravani Gordon MD Sodium [Moles/Vol] 142 mmol/L Normal 136-145 [facility] Comment on above: Performed By: #### T SHX #### [facility] [address] [place] [address] Sales Professional Bilingual: Sravani Gordon MD Urea nitrogen [Mass/Vol] 4 mg/dL Low 8-23 [facility] Comment on above: Performed By: #### T SHX #### [facility] [address] [place] [address] Sales Professional Bilingual: Sravani Gordon MD CBC with Diffon 12-17-2023 Abs. Basophil 0.18 k/uL Normal 0.0-0.2 [facility] Comment on above: Performed By: #### T SHX #### [facility] [address] [place], [place] [address] Sales Professional Bilingual: Sravani Gordon MD Abs.Imm.Granulocyte 0.18 k/uL Normal 0.00-0.30 [facility] Comment on above: Performed By: #### T SHX #### [facility] [address] [place] [address] Sales Professional Bilingual: Sravani Gordon MD Abs.Neutrophil (Seg) 6.13 k/uL Normal 1.50-8.10 [facility] Comment on above: Performed By: #### T SHX #### [facility] [address] [place] [address] Sales Professional Bilingual: Sravani Gordon MD Basophils/100 WBC (Bld) 2 % Normal 0-2 [facility] Comment on above: Performed By: #### T SHX #### [facility] [address] [place] [address] Sales Professional Bilingual: Sravani Gordon MD Eosinophils (Bld) [#/Vol] 0.27 10*3/uL Normal 0.00-0.44 [facility] Comment on above: Performed By: #### T SHX #### [facility] [address] [place] [address] Sales Professional Bilingual: Sravani Gordon MD Eosinophils/100 WBC (Bld) 3 % Normal 1-4 [facility] Comment on above: Performed By: #### T SHX #### [facility] [address] [place] [address] Sales Professional Bilingual: Sravani Gordon MD Immature granulocytes/100 WBC (Bld) 2 % High 0 [facility] Comment on above: Performed By: #### T SHX #### [facility] [address] [place] [phone] Sales Professional Bilingual: Sravani Gordon MD Lymphocytes (Bld) [#/Vol] 1.71 10*3/uL Normal 1.10-3.70 [facility] Comment on above: Performed By: #### T SHX #### [facility] [address] [place], [place] [phone] Sales Professional Bilingual: Sravani Gordon MD Lymphocytes/100 WBC (Bld) 19 % Low 24-43 [facility] Comment on above: Performed By: #### T SHX #### [facility] [address] [place], [place] [phone] Sales Professional Bilingual: Sravani Gordon MD Monocytes (Bld) [#/Vol] 0.54 10*3/uL Normal 0.10-1.20 [facility] Comment on above: Performed By: #### T SHX #### [facility] [address] [place], [facility] Sales Professional Bilingual: Sravani Gordon MD Monocytes/100 WBC (Bld) 6 % Normal 3-12 [facility] Comment on above: Performed By: #### T SHX #### [facility] [address] [place] [address] Dr. [place], [facility] Sales Professional Bilingual: Sravani Gordon MD Morphology Wicho (Bld) [Interp] Normal Normal [facility] Comment on above: Performed By: #### T SHX #### [facility] [address] [place], [facility] Sales Professional Bilingual: Sravani Gordon MD Neutrophil (Seg) 68 % High 36-65 [facility] Comment on above: Performed By: #### T SHX #### [facility] [address] [place], [place] [phone] Sales Professional Bilingual: Sravani Gordon MD Nucleated RBC'S 1 per 100 WBC Normal 0-5 [facility] Comment on above: Performed By: #### T SHX #### [facility] [address] [place] [address] Dr. [place], [place] 616[address]83 Sales Professional Bilingual: Sravani Gordon MD WBC (Bld) [#/Vol] 9.0 10*3/uL Normal 3.5-11.3 [facility] Comment on above: Result Comment: ADJU STED FOR NUCLEATED RBC'S CORRECTED ON 12/16 AT 1614: PREVIOUSLY REPORTED 9.1 Performed By: #### T SHX #### [address] [place], [place] 9[address]83 Sales Professional Bilingual: Sravani Gordon MD Erythrocyte distribution width (RBC) [Ratio] 14.2 % Normal 11.8-14.4 [facility] Comment on above: Performed By: #### T SHX #### [address] [place], [place] [phone] Sales Professional Bilingual: Sravani Gordon MD Hematocrit (Bld) [Volume fraction] 32.1 % Low 36.3-47.1 [facility] Comment on above: Performed By: #### T SHX #### [address] [place], [place] [phone] Sales Professional Bilingual: Sravani Gordon MD Hemoglobin (Bld) [Mass/Vol] 11.2 g/dL Low 11.9-15.1 [facility] Comment on above: Performed By: #### T SHX #### [address] [place], [place] [phone] Sales Professional Bilingual: Sravani Gordon MD MCH (RBC) [Entitic mass] 30.8 pg Normal 25.2-33.5 [facility] Comment on above: Performed By: #### T SHX #### [address] [place], [place] [phone] Sales Professional Bilingual: Sravani Gordon MD MCHC (RBC) [Mass/Vol] 34.9 g/dL High 28.4-34.8 [facility] Comment on above: Performed By: #### T SHX #### [facility] [address] [place], [place] [address]83 Sales Professional Bilingual: Sravani Gordon MD MCV (RBC) [Entitic vol] 88.2 fL Normal 82.6-102.9 [facility] Comment on above: Performed By: #### T SHX #### [address] [place], [place] [phone] Sales Professional Bilingual: Sravani Gordon MD NRBC Automated 0.0 per [address] [facility] Comment on above: Performed By: #### T SHX #### [address] [place], [place] 475[address]83 Sales Professional Bilingual: Sravani Gordon MD Platelet mean volume (Bld) [Entitic vol] 9.7 fL Normal 8.1-13.5 [facility] Comment on above: Performed By: #### T SHX #### [address] [place], [place] [phone] Sales Professional Bilingual: Sravani Gordon MD Platelets (Bld) [#/Vol] 441 10*3/uL Normal 138-453 [facility] Comment on above: Performed By: #### T SHX #### [address] [place], [place] [address]83 Sales Professional Bilingual: Sravani Gordon MD RBC (Bld) [#/Vol] 3.64 10*6/uL Low 3.95-5.11 [facility] Comment on above: Performed By: #### T SHX #### [address] [place], [place] 801[address]83 Sales Professional Bilingual: Sravani Gordon MD Micro Miscellaneouson 2023 Test Name [id number] [id number] SENSI ON STOOL WITH SALMONELLA Normal [facility] Comment on above: Performed By: #### U JEREMY UAX #### [facility] [address] [place] [address] Dr. [place], [place] 8287983 Sales Professional Bilingual: Sravani Gordon MD Organism ID w/ Sension [id number] Organism ID w/ Sensi Specimen Description .FECES Culture SALMONELLA SPECIES Report Status FINAL 12/14/[address] [facility] Comment on above: Performed By: #### U MICAO, UAX #### [facility] [address] [place] [address] Sales Professional Bilingual: Sravani Gordon MD Blood Culture 1on 12-12-2023 Interpretation and review of laboratory results Abnormal [facility] Microorganism identified Cx Nom (Unsp spec) Positive Abnormal [facility] Microorganism identified Cx Nom (Unsp spec) Negative [facility] Microorganism identified Cx Nom (Unsp spec) Salmonella species Detected: Methodology- Polymerase Chain Reaction (PCR) Results reported to the appropriate Health Department [facility] Microorganism identified Cx Nom (Unsp spec) SALMONELLA SPECIES Results reported to the appropriate Health Department Critically abnormal [facility] Microorganism identified Cx Nom (Unsp spec) (NOTE) Direct Gram Stain from bottle result called to and read back by:TEE COSTELLO RN T [facility] 12/10/23 1520 BY AMIE [facility] Service comment (Unsp spec) [Interp] LAC by AMIE in ER [facility] Specimen Description .BLOOD 20ML [facility] CBC auto differentialon 11-24 Basophils (Bld) [#/Vol] 0.07 10*3/uL [facility] Basophils/100 WBC (Bld) 2 % 0 - 2 % [facility] Eosinophils (Bld) [#/Vol] 0.07 10*3/uL [facility] Eosinophils/100 WBC (Bld) 2 % 1 - 4 % [facility] Erythrocyte distribution width (RBC) [Ratio] 14.0 % 11.8 - 14.4 % [facility] Hematocrit (Bld) [Volume fraction] 30.1 % Low 36.3 - 47.1 % [facility] Hemoglobin (Bld) [Mass/Vol] 10.3 g/dL Low 11.9 - 15.1 g/dL [facility] Immature granulocytes (Bld) [#/Vol] 0.00 10*3/uL [facility] Immature granulocytes/100 WBC (Bld) 0 % 0 [facility] Interpretation and review of laboratory results Abnormal [facility] Lymphocytes/100 WBC (Bld) 17 % Low 24 - 43 % [facility] Lymphocytes/100 WBC (Bld) 0.63 % Low [facility] MCH (RBC) [Entitic mass] 30.9 pg 25.2 - 33.5 pg [facility] MCHC (RBC) [Mass/Vol] 34.2 g/dL 28.4 - 34.8 g/ dL [facility] MCV (RBC) [Entitic vol] 90.4 fL 82.6 - 102.9 fL [facility] Monocytes/100 WBC (Bld) 15 % High 3 - 12 % [facility] Monocytes/100 WBC (Bld) 0.56 % [facility] Morphology Wicho (Bld) [Interp] Normal [facility] Neutrophils/100 WBC (Bld) 64 % 36 - 65 % [facility] Nucleated RBC/100 WBC (Bld) [Ratio] 0.0 % 0.0 per 100 WBC [facility] Platelet mean volume (Bld) [Entitic vol] 10.5 fL 8.1 - 13.5 fL [facility] Platelets (Bld) [#/Vol] 200 10*3/uL [facility] RBC (Bld) [#/Vol] 3.33 10*6/uL Low 3.95 - 5.11 m/uL [facility] Segmented neutrophils/100 WBC (Bld) 2.37 % [facility] WBC other (Bld) [#/Vol] 3.7 [facility] CBC with Diffon 12-12-2023 Abs. Basophil 0.07 k/uL Normal 0.0-0.2 [facility] Comment on above: Performed By: #### B C #### [facility] [address] [place] [address] Sales Professional Bilingual: Robi Veliz MD [address] [place] [address] Sales Professional Bilingual: Sravani Gordon MD Abs.Imm.Granulocyte 0.00 k/uL Normal 0.00-0.30 [facility] Comment on above: Performed By: #### B C #### [address] [address] Sales Professional Bilingual: Robi Veliz MD [address] [place] [phone] Sales Professional Bilingual: Sravani Gordon MD Abs.Neutrophil (Seg) 2.37 k/uL Normal 1.50-8.10 [facility] Comment on above: Performed By: #### B C #### [address] [address] Sales Professional Bilingual: Robi Veliz MD [address] [place] [phone] Sales Professional Bilingual: Sravani Gordon MD Basophils/100 WBC (Bld) 2 % Normal 0-2 [facility] Comment on above: Performed By: #### B C #### [address] [address] Sales Professional Bilingual: Robi Veliz MD [address] [place] [phone] Sales Professional Bilingual: Sravani Gordon MD Eosinophils (Bld) [#/Vol] 0.07 10*3/uL Normal 0.00-0.44 [facility] Comment on above: Performed By: #### B C #### [address] [address] Sales Professional Bilingual: Robi Veliz MD [facility] [address] [place] [address] Dr. [place] [phone] Sales Professional Bilingual: Sravani Gordon MD Eosinophils/100 WBC (Bld) 2 % Normal 1-4 [facility] Comment on above: Performed By: #### B C #### [facility] [address] [place] [address] Sales Professional Bilingual: Robi Veliz MD [facility] [address] [place] [address] [place]. [place], [place] [phone] Sales Professional Bilingual: Sravani Gordon MD Immature granulocytes/100 WBC (Bld) 0 % Normal 0 [facility] Comment on above: Performed By: #### B C #### [address] [address] Sales Professional Bilingual: Robi Veliz MD [facility] [address] [place] [address] Dr. [place] [phone] Sales Professional Bilingual: Sravani Gordon MD Lymphocytes (Bld) [#/Vol] 0.63 10*3/uL Low 1.10-3.70 [facility] Comment on above: Performed By: #### B C #### [address] [address] Sales Professional Bilingual: Robi Veliz MD [facility] [address] [place] [address] [place] [address] Sales Professional Bilingual: Sravani Gordon MD Lymphocytes/100 WBC (Bld) 17 % Low 24-43 [facility] Comment on above: Performed By: #### B C #### [address] [address] Sales Professional Bilingual: Robi Veliz MD [facility] [address] [place] [address] [place] [address] Sales Professional Bilingual: Sravani Gordon MD Monocytes (Bld) [#/Vol] 0.56 10*3/uL Normal 0.10-1.20 [facility] Comment on above: Performed By: #### B C #### [address] [address] Sales Professional Bilingual: Robi Veliz MD [facility] [address] [place] [address] [place]. [place], [place] 5[address]83 Sales Professional Bilingual: Sravani Gordon MD Monocytes/100 WBC (Bld) 15 % High 3-12 [facility] Comment on above: Performed By: #### B C #### [facility] [address] [place] [address] Sales Professional Bilingual: Robi Veliz MD [address] [place], [place] [phone] Sales Professional Bilingual: Sravani Gordon MD Morphology Wicho (Bld) [Interp] Normal Normal [facility] Comment on above: Performed By: #### B C #### [address] [address] Sales Professional Bilingual: Robi Veliz MD [address] [place] [phone] Sales Professional Bilingual: Sravani Gordon MD Neutrophil (Seg) 64 % Normal 36-65 [facility] Comment on above: Performed By: #### B C #### [facility] [address] [place] [address] Sales Professional Bilingual: Robi Veliz MD [address] [place], [place] [phone] Sales Professional Bilingual: Sravani Gordon MD Erythrocyte distribution width (RBC) [Ratio] 14.0 % Normal 11.8-14.4 [facility] Comment on above: Performed By: #### B C #### [facility] [address] [place] [address] Sales Professional Bilingual: Robi Veliz MD [address] [place] [phone] Sales Professional Bilingual: Sravani Gordon MD Hematocrit (Bld) [Volume fraction] 30.1 % Low 36.3-47.1 [facility] Comment on above: Performed By: #### B C #### [facility] [address] [place] [address] Sales Professional Bilingual: Robi Veliz MD [address] [place] [address] Sales Professional Bilingual: Sravani Gordon MD Hemoglobin (Bld) [Mass/Vol] 10.3 g/dL Low 11.9-15.1 [facility] Comment on above: Performed By: #### B C #### [address] [address] Sales Professional Bilingual: Robi Veliz MD [address] [place] [address] Sales Professional Bilingual: Sravani Gordon MD MCH (RBC) [Entitic mass] 30.9 pg Normal 25.2-33.5 [facility] Comment on above: Performed By: #### B C #### [address] [address] Sales Professional Bilingual: Robi Veliz MD [address] [place] [phone] Sales Professional Bilingual: Sravani Gordon MD MCHC (RBC) [Mass/Vol] 34.2 g/dL Normal 28.4-34.8 [facility] Comment on above: Performed By: #### B C #### [address] [address] Sales Professional Bilingual: Robi Veliz MD [address] [place] [phone] Sales Professional Bilingual: Sravani Gordon MD MCV (RBC) [Entitic vol] 90.4 fL Normal 82.6-102.9 [facility] Comment on above: Performed By: #### B C #### [address] [address] Sales Professional Bilingual: Robi Veliz MD [address] [place] [address] Sales Professional Bilingual: Sravani Gordon MD NRBC Automated 0.0 per [address] [facility] Comment on above: Performed By: #### B C #### [place] [address] [place] [address] Sales Professional Bilingual: Robi Veliz MD [facility] [address] [place] [address] Dr. [place], [place] [phone] Sales Professional Bilingual: Sravani Gordon MD Platelet mean volume (Bld) [Entitic vol] 10.5 fL Normal 8.1-13.5 [facility] Comment on above: Performed By: #### B C #### [address] [address] Sales Professional Bilingual: Robi Veliz MD [facility] [address] [place] [address] Dr. [place], [place] [phone] Sales Professional Bilingual: Sravani Gordon MD Platelets (Bld) [#/Vol] 200 10*3/uL Normal 138-453 [facility] Comment on above: Performed By: #### B C #### [address] [address] Sales Professional Bilingual: Robi Veliz MD [facility] [address] [place] [address] Dr. [place] [phone] Sales Professional Bilingual: Sravani Gordon MD RBC (Bld) [#/Vol] 3.33 10*6/uL Low 3.95-5.11 [facility] Comment on above: Performed By: #### B C #### [address] [address] Sales Professional Bilingual: Robi Veliz MD [facility] [address] [place] [address] Dr. [place], [place] [phone] Sales Professional Bilingual: Sravani Gordon MD WBC (Bld) [#/Vol] 3.7 10*3/uL Normal 3.5-11.3 [facility] Comment on above: Performed By: #### B C #### [address] [address] Sales Professional Bilingual: Robi Veliz MD [address] [place], [place] [phone] Sales Professional Bilingual: Sravani Gordon MD Comp Metabolic Pr/rfx MGon 0 12-12-2023 Albumin [Mass/Vol] 3.0 g/dL Low 3.5-5.2 [facility] Comment on above: Performed By: #### B C #### [address] [address] Sales Professional Bilingual: Robi Veliz MD [address] [place], [place] [phone] Sales Professional Bilingual: Sravani Gordon MD Albumin/Glob Ratio 1.4 Normal 1.0-2.5 [facility] Comment on above: Performed By: #### B C #### [address] [address] Sales Professional Bilingual: Robi Veliz MD [address] [place], [place] [phone] Sales Professional Bilingual: Sravani Gordon MD Alkaline Phos 81 U/L Normal 35-104 [facility] Comment on above: Performed By: #### B C #### [facility] [address] [place] [address] Sales Professional Bilingual: Robi Veliz MD [address] [place], [place] [phone] Sales Professional Bilingual: Sravani Gordon MD ALT [Catalytic activity/Vol] 16 U/L Normal 10-35 [facility] Comment on above: Performed By: #### B C #### [facility] [address] [place] [address] Sales Professional Bilingual: Robi Veliz MD [facility] [address] [place] [address] Dr. [place], [place] [phone] Sales Professional Bilingual: Sravani Gordon MD Anion gap [Moles/Vol] 10 mmol/L Normal 9-16 [facility] Comment on above: Performed By: #### B C #### [facility] [address] [place] [address] Sales Professional Bilingual: Robi Veliz MD [facility] [address] [place], [place] [phone] Sales Professional Bilingual: Sravani Gordon MD AST [Catalytic activity/Vol] 24 U/L Normal 10-35 [facility] Comment on above: Performed By: #### B C #### [facility] [address] [place] [address] Sales Professional Bilingual: Robi Veliz MD [facility] [address] [place] [address] Dr. [place], [place] [phone] Sales Professional Bilingual: Sravani Gordon MD Bilirubin [Mass/Vol] mg/dL Normal 0.00-1.20 [facility] Comment on above: Performed By: #### B C #### [facility] [address] [place] [address] Sales Professional Bilingual: Robi Veliz MD [facility] [address] [place] [address] [place] [address] Sales Professional Bilingual: Sravani Gordon MD BUN/CRE Ratio 6 Low 9-20 [facility] Comment on above: Performed By: #### B C #### [facility] [address] [place] [address] Sales Professional Bilingual: Robi Veliz MD [facility] [address] [place] [address] Dr. [place], [place] [phone] Sales Professional Bilingual: Sravani Gordon MD Calcium [Mass/Vol] 8.0 mg/dL Low 8.6-10.4 [facility] Comment on above: Performed By: #### B C #### [facility] [address] [place] [address] Sales Professional Bilingual: Robi Veliz MD [facility] [address] [place] [address] Dr. [place], [place] [phone] Sales Professional Bilingual: Sravani Gordon MD Chloride [Moles/Vol] 114 mmol/L High 98-107 [facility] Comment on above: Performed By: #### B C #### [facility] [address] [place] [address] Sales Professional Bilingual: Robi Veliz MD [facility] [address] [place], [place] [phone] Sales Professional Bilingual: Sravani Gordon MD CO2 [Moles/Vol] 16 mmol/L Low 20-31 [facility] Comment on above: Performed By: #### B C #### [facility] [address] [place] [address] Sales Professional Bilingual: Robi Veliz MD [facility] [address] [place], [place] [phone] Sales Professional Bilingual: Sravani Gordon MD Creatinine [Mass/Vol] 0.8 mg/dL Normal 0.50-0.90 [facility] Comment on above: Performed By: #### B C #### [facility] [address] [place] [address] Sales Professional Bilingual: Robi Veliz MD [facility] [address] [place] [address] [place] [phone] Sales Professional Bilingual: Sravani Gordon MD GFR/1.73 sq M.predicted among non-blacks MDRD (S/P/Bld) [Vol rate/Area] 81 mL/min/{1.73_m2} Normal >60 [facility] Comment on above: Result Comment: These [...] affects renal tubular secretion. Performed By: #### B C #### [facility] [address] [place] [address] Sales Professional Bilingual: Robi Veliz MD [facility] [address] [place] [address] Dr. [place], [place] [phone] Sales Professional Bilingual: Sravani Gordon MD Glucose [Mass/Vol] 93 mg/dL Normal 74-99 [facility] Comment on above: Performed By: #### B C #### [facility] [address] [place] [address] Sales Professional Bilingual: Robi Veliz MD [facility] [address] [place] [address] Dr. [place], [place] [phone] Sales Professional Bilingual: Sravani Gordon MD Potassium [Moles/Vol] 3.0 mmol/L Low 3.7-5.3 [facility] Comment on above: Performed By: #### B C #### [address] [address] Sales Professional Bilingual: Robi Veliz MD [address] [place], [place] [phone] Sales Professional Bilingual: Sravani Gordon MD Protein [Mass/Vol] 5.1 g/dL Low 6.6-8.7 [facility] Comment on above: Performed By: #### B C #### [facility] [address] [place] [address] Sales Professional Bilingual: Robi Veliz MD [address] [place], [place] [phone] Sales Professional Bilingual: Sravani Gordon MD Sodium [Moles/Vol] 140 mmol/L Normal 136-145 [facility] Comment on above: Performed By: #### B C #### [facility] [address] [place] [address] Sales Professional Bilingual: Robi Veliz MD [address] [place], [place] [phone] Sales Professional Bilingual: Sravani Gordon MD Urea nitrogen [Mass/Vol] 5 mg/dL Low 8-23 [facility] Comment on above: Performed By: #### B C #### [facility] [address] [place] [address] Sales Professional Bilingual: Robi Veliz MD [facility] [address] [place] [address] Sales Professional Bilingual: Sravani Gordon MD Comprehensive Metabolic Pane l w/ Reflex to MGon 12-12-2023 Albumin [Mass/Vol] 3.0 g/dL Low 3.5 - 5.2 g/dL [facility] Albumin/Globulin [Mass ratio] 1.4 {ratio} 1.0 - 2.5 [facility] ALP [Catalytic activity/Vol] 81 U/L 35 - 104 U/L [facility] ALT [Catalytic activity/Vol] 16 U/L 10 - 35 U/L [facility] Anion gap [Moles/Vol] 10 mmol/L 9 - 16 mmol/L [facility] AST [Catalytic activity/Vol] 24 U/L 10 - 35 U/L [facility] Bilirubin [Mass/Vol] mg/dL 0.00 - 1.20 mg/ dL [facility] Calcium [Mass/Vol] 8.0 mg/dL Low 8.6 - 10.4 mg/dL [facility] Chloride [Moles/Vol] 114 mmol/L High 98 - 107 mmol/L [facility] CO2 [Moles/Vol] 16 mmol/L Low 20 - 31 mmol/L [facility] Creatinine [Mass/Vol] 0.8 mg/dL 0.50 - 0.90 mg /dL [facility] Est, Glom Filt Rate 81 - PINF [facility] Comment on above: These results are [...] [Mass/Vol] 93 mg/dL 74 - 99 mg/dL [facility] Interpretation and review of laboratory results Abnormal [facility] Potassium [Moles/Vol] 3.0 mmol/L Low 3.7 - 5.3 mmol /L [facility] Protein [Mass/Vol] 5.1 g/dL Low 6.6 - 8.7 g/dL [facility] Sodium [Moles/Vol] 140 mmol/L 136 - 145 mmol/L [facility] Urea nitrogen [Mass/Vol] 5 mg/dL Low 8 - 23 mg/dL [facility] Urea nitrogen/Creatinine [Mass ratio] 6 mg/mg Low 9 - 20 [facility] Cult, Bloodon 12-12-2023 Cult, Blood Specimen Description .BLOOD 3ML Special Requests BCAE ONLY RT WRIST by RW in ER Culture POSITIVE BLOOD CULTURE, RN NOTIFIED: TEE COSTELLO RN, T [facility] 12/10/23, 1645, DJR RB DIRECT GRAM STAIN FROM BOTTLE: GRAM NEGATIVE RODS SALMONELLA SPECIES Identification by MALDI-TOF For susceptibility, refer to previous culture. Results reported to the appropriate Health Department Report Status FINAL 12/12/[address] [facility] Comment on above: Performed By: #### U JEREMY UARichard #### [facility] [address] [place] [address] Sales Professional Bilingual: Sravani Gordon MD Cult,Bloodon 12-12-2023 Cult,Blood Specimen Description .BLOOD [...] to and read back by:TEE COSTELLO RN [facility] 12/10/23 1520 BY AMIE Report Status FINAL 12/12/2023 SUSCEPTIBILITY Organism SALMONELLA SPECIES Method PÉREZ GREEN Ciprofloxacin SUSCEPTIBLE SUSCEPTIBILITY Organism SALMONELLA SPECIES Method ELLEN Ampicillin <=2 SUSCEPTIBLE Levofloxacin <=0.12 SUSCEPTIBLE Trimethoprim/Sulfa <=[address] [facility] Comment on above: Performed By: #### B C #### [address] [address] Sales Professional Bilingual: Robi Veliz MD [facility] [address] [place] [address] Sales Professional Bilingual: Sravani Gordon MD Culture, Blood 2on Interpretation and review of laboratory results Abnormal [facility] Microorganism identified Cx Nom (Unsp spec) POSITIVE BLOOD CULTURE, RN NOTIFIED: TEE COSTELLO RN, [facility] 12/10/23, 1645, DJR RB [facility] Microorganism identified Cx Nom (Unsp spec) Negative [facility] Microorganism identified Cx Nom (Unsp spec) SALMONELLA SPECIES Identification by MALDI-TOF For susceptibility, refer to previous culture. Results reported to the appropriate Health Department Critically abnormal [facility] Service comment (Unsp spec) [Interp] BCAE ONLY RT WRIST by RW in ER [facility] Specimen Description .BLOOD 3ML [facility] Magnesiumon 12-12-2023 Magnesium [Mass/Vol] 1.8 mg/dL 1.6 - 2.4 mg/dL [facility] Magnesium [Mass/Vol] 1.8 mg/dL Normal 1.6-2.4 [facility] Comment on above: Performed By: #### B C #### [facility] [address] [place] [address] Sales Professional Bilingual: Robi Veliz MD [facility] [address] [place] [address] [place] [address] Sales Professional Bilingual: Sravani Gordon MD CBC auto differentialon 11-24 Basophils (Bld) [#/Vol] 0.04 10*3/uL [facility] Basophils/100 WBC (Bld) 1 % 0 - 2 % [facility] Eosinophils (Bld) [#/Vol] 0.00 10*3/uL [facility] Eosinophils/100 WBC (Bld) 0 % Low 1 - 4 % [facility] Erythrocyte distribution width (RBC) [Ratio] 14.1 % 11.8 - 14.4 % [facility] Hematocrit (Bld) [Volume fraction] 32.1 % Low 36.3 - 47.1 % [facility] Hemoglobin (Bld) [Mass/Vol] 11.0 g/dL Low 11.9 - 15.1 g/dL [facility] Immature granulocytes (Bld) [#/Vol] 0.04 10*3/uL [facility] Immature granulocytes/100 WBC (Bld) 1 % High 0 [facility] Interpretation and review of laboratory results Abnormal [facility] Lymphocytes/100 WBC (Bld) 11 % Low 24 - 43 % [facility] Lymphocytes/100 WBC (Bld) 0.44 % Low [facility] MCH (RBC) [Entitic mass] 31.6 pg 25.2 - 33.5 pg [facility] MCHC (RBC) [Mass/Vol] 34.3 g/dL 28.4 - 34.8 g/ dL [facility] MCV (RBC) [Entitic vol] 92.2 fL 82.6 - 102.9 fL [facility] Monocytes/100 WBC (Bld) 12 % 3 - 12 % [facility] Monocytes/100 WBC (Bld) 0.48 % [facility] Morphology Wicho (Bld) [Interp] Normal [facility] Neutrophils/100 WBC (Bld) 75 % High 36 - 65 % [facility] Nucleated RBC/100 WBC (Bld) [Ratio] 0.0 % 0.0 per 100 WBC [facility] Platelet mean volume (Bld) [Entitic vol] 10.0 fL 8.1 - 13.5 fL [facility] Platelets (Bld) [#/Vol] 189 10*3/uL [facility] RBC (Bld) [#/Vol] 3.48 10*6/uL Low 3.95 - 5.11 m/uL [facility] Segmented neutrophils/100 WBC (Bld) 3.00 % [facility] WBC other (Bld) [#/Vol] 4.0 [facility] CBC with Diffon 12-11-2023 Abs. Basophil 0.04 k/uL Normal 0.0-0.2 [facility] Comment on above: Performed By: #### T SHX #### [facility] [address] [place], [place] [address] Sales Professional Bilingual: Sravani Gordon MD Abs.Imm.Granulocyte 0.04 k/uL Normal 0.00-0.30 [facility] Comment on above: Performed By: #### T SHX #### [facility] [address] [place], [facility] Sales Professional Bilingual: Sravani Gordon MD Abs.Neutrophil (Seg) 3.00 k/uL Normal 1.50-8.10 [facility] Comment on above: Performed By: #### T SHX #### [address] [place] [phone] Sales Professional Bilingual: Sravani Gordon MD Basophils/100 WBC (Bld) 1 % Normal 0-2 [facility] Comment on above: Performed By: #### T SHX #### [facility] [address] [place] [phone] Sales Professional Bilingual: Sravani Gordon MD Eosinophils (Bld) [#/Vol] 0.00 10*3/uL Normal 0.00-0.44 [facility] Comment on above: Performed By: #### T SHX #### [facility] [address] [place], [place] [address] Sales Professional Bilingual: Sravani Gordon MD Eosinophils/100 WBC (Bld) 0 % Low 1-4 [facility] Comment on above: Performed By: #### T SHX #### [facility] [address] [place] [phone] Sales Professional Bilingual: Sravani Gordon MD Immature granulocytes/100 WBC (Bld) 1 % High 0 [facility] Comment on above: Performed By: #### T SHX #### [facility] [address] [place] [phone] Sales Professional Bilingual: Sravani Gordon MD Lymphocytes (Bld) [#/Vol] 0.44 10*3/uL Low 1.10-3.70 [facility] Comment on above: Performed By: #### T SHX #### [facility] [address] [place] [address] Sales Professional Bilingual: Sravani Gordon MD Lymphocytes/100 WBC (Bld) 11 % Low 24-43 [facility] Comment on above: Performed By: #### T SHX #### [facility] [address] [place] [phone] Sales Professional Bilingual: Sravani Gordon MD Monocytes (Bld) [#/Vol] 0.48 10*3/uL Normal 0.10-1.20 [facility] Comment on above: Performed By: #### T SHX #### [facility] [address] [place] [address] Dr. [place], [id number] ( Sales Professional Bilingual: Sravani Gordon MD Monocytes/100 WBC (Bld) 12 % Normal 3-12 [facility] Comment on above: Performed By: #### T SHX #### [facility] [address] [place] [address] Dr. [place], [facility] Sales Professional Bilingual: Sravani Gordon MD Morphology Wicho (Bld) [Interp] Normal Normal [facility] Comment on above: Performed By: #### T SHX #### [facility] [address] [place], [facility] Sales Professional Bilingual: Sravani Gordon MD Neutrophil (Seg) 75 % High 36-65 [facility] Comment on above: Performed By: #### T SHX #### [facility] [address] [place] [address] Sales Professional Bilingual: Sravani Gordon MD Erythrocyte distribution width (RBC) [Ratio] 14.1 % Normal 11.8-14.4 [facility] Comment on above: Performed By: #### T SHX #### [address] [place] [address] Sales Professional Bilingual: Sravani Gordon MD Hematocrit (Bld) [Volume fraction] 32.1 % Low 36.3-47.1 [facility] Comment on above: Performed By: #### T SHX #### [address] [place], [facility] Sales Professional Bilingual: Sravani Gordon MD Hemoglobin (Bld) [Mass/Vol] 11.0 g/dL Low 11.9-15.1 [facility] Comment on above: Performed By: #### T SHX #### [address] [place] [phone] Sales Professional Bilingual: Sravani Gordon MD MCH (RBC) [Entitic mass] 31.6 pg Normal 25.2-33.5 [facility] Comment on above: Performed By: #### T SHX #### [address] [place] [phone] Sales Professional Bilingual: Sravani Gordon MD MCHC (RBC) [Mass/Vol] 34.3 g/dL Normal 28.4-34.8 [facility] Comment on above: Performed By: #### T SHX #### [address] [place], [facility] Sales Professional Bilingual: Sravani Gordon MD MCV (RBC) [Entitic vol] 92.2 fL Normal 82.6-102.9 [facility] Comment on above: Performed By: #### T SHX #### [address] [place] [address] Sales Professional Bilingual: Sravani Gordon MD NRBC Automated 0.0 per [address] [facility] Comment on above: Performed By: #### T SHX #### [address] [place] [phone] Sales Professional Bilingual: Sravani Gordon MD Platelet mean volume (Bld) [Entitic vol] 10.0 fL Normal 8.1-13.5 [facility] Comment on above: Performed By: #### T SHX #### [facility] [address] [place], [facility] Sales Professional Bilingual: Sravani Gordon MD Platelets (Bld) [#/Vol] 189 10*3/uL Normal 138-453 [facility] Comment on above: Performed By: #### T SHX #### [facility] [address] [place], [facility] Sales Professional Bilingual: Sravani Gordon MD RBC (Bld) [#/Vol] 3.48 10*6/uL Low 3.95-5.11 [facility] Comment on above: Performed By: #### T SHX #### [address] [place], [facility] Sales Professional Bilingual: Sravani Gordon MD WBC (Bld) [#/Vol] 4.0 10*3/uL Normal 3.5-11.3 [facility] Comment on above: Performed By: #### T SHX #### [address] [place] [phone] Sales Professional Bilingual: Sravani Gordon MD Comp Metabolic Pr/rfx MGon 0 12-11-2023 Albumin [Mass/Vol] 3.0 g/dL Low 3.5-5.2 [facility] Comment on above: Performed By: #### T SHX #### [facility] [address] [place], [facility] Sales Professional Bilingual: Sravani Gordon MD Albumin/Glob Ratio 1.3 Normal 1.0-2.5 [facility] Comment on above: Performed By: #### T SHX #### [facility] [address] [place], [facility] Sales Professional Bilingual: Sravani Gordon MD Alkaline Phos 73 U/L Normal 35-104 [facility] Comment on above: Performed By: #### T SHX #### [facility] [address] [place] [address] Sales Professional Bilingual: Sravani Gordon MD ALT [Catalytic activity/Vol] 16 U/L Normal 10-35 [facility] Comment on above: Performed By: #### T SHX #### [facility] [address] [place] [address] Sales Professional Bilingual: Sravani Gordon MD Anion gap [Moles/Vol] 11 mmol/L Normal 9-16 [facility] Comment on above: Performed By: #### T SHX #### [facility] [address] [place], [place] [phone] Sales Professional Bilingual: Sravani Gordon MD AST [Catalytic activity/Vol] 29 U/L Normal 10-35 [facility] Comment on above: Performed By: #### T SHX #### [facility] [address] [place], [place] [phone] Sales Professional Bilingual: Sravani Gordon MD Bilirubin [Mass/Vol] mg/dL Normal 0.00-1.20 [facility] Comment on above: Performed By: #### T SHX #### [facility] [address] [place], [place] [phone] Sales Professional Bilingual: Sravani Gordon MD BUN/CRE Ratio 15 Normal 9-20 [facility] Comment on above: Performed By: #### T SHX #### [facility] [address] [place] [address] Sales Professional Bilingual: Sravani Gordon MD Calcium [Mass/Vol] 7.8 mg/dL Low 8.6-10.4 [facility] Comment on above: Performed By: #### T SHX #### [facility] [address] [place] [address] Sales Professional Bilingual: Sravani Gordon MD Chloride [Moles/Vol] 112 mmol/L High 98-107 [facility] Comment on above: Performed By: #### T SHX #### [facility] [address] [place], [place] [phone] Sales Professional Bilingual: Sravani Gordon MD CO2 [Moles/Vol] 15 mmol/L Low 20-31 [facility] Comment on above: Performed By: #### T SHX #### [facility] [address] [place], [place] [phone] Sales Professional Bilingual: Sravani Gordon MD Creatinine [Mass/Vol] 1.0 mg/dL High 0.50-0.90 [facility] Comment on above: Performed By: #### T SHX #### [facility] [address] [place] [address] Sales Professional Bilingual: Sravani Gordon MD GFR/1.73 sq M.predicted among non-blacks MDRD (S/P/Bld) [Vol rate/Area] 60 mL/min/{1.73_m2} Low >60 [facility] Comment on above: Result Comment: These [...] renal tubular secretion. Performed By: #### T SHX #### [facility] [address] [place] [address] Sales Professional Bilingual: Sravani Gordon MD Glucose [Mass/Vol] 107 mg/dL High 74-99 [facility] Comment on above: Performed By: #### T SHX #### [facility] [facility] [address] [place] [address] Sales Professional Bilingual: Sravani Gordon MD Potassium [Moles/Vol] 3.5 mmol/L Low 3.7-5.3 [facility] Comment on above: Performed By: #### T SHX #### [facility] [address] [place], [place] [phone] Sales Professional Bilingual: Sravani Gordon MD Protein [Mass/Vol] 5.2 g/dL Low 6.6-8.7 [facility] Comment on above: Performed By: #### T SHX #### [facility] [address] [place], [place] [phone] Sales Professional Bilingual: Sravani Gordon MD Sodium [Moles/Vol] 138 mmol/L Normal 136-145 [facility] Comment on above: Performed By: #### T SHX #### [facility] [address] [place] [address] Sales Professional Bilingual: Sravani Gordon MD Urea nitrogen [Mass/Vol] 15 mg/dL Normal 8-23 [facility] Comment on above: Performed By: #### T SHX #### [facility] [address] [place] [address] Sales Professional Bilingual: Sravani Gordon MD Comprehensive Metabolic Pane l w/ Reflex to MGon 12-11-2023 Albumin [Mass/Vol] 3.0 g/dL Low 3.5 - 5.2 g/dL GUILLERMO [facility] Albumin/Globulin [Mass ratio] 1.3 {ratio} 1.0 - 2.5 [facility] ALP [Catalytic activity/Vol] 73 U/L 35 - 104 U/L [facility] ALT [Catalytic activity/Vol] 16 U/L 10 - 35 U/L [facility] Anion gap [Moles/Vol] 11 mmol/L 9 - 16 mmol/L [facility] AST [Catalytic activity/Vol] 29 U/L 10 - 35 U/L [facility] Bilirubin [Mass/Vol] mg/dL 0.00 - 1.20 mg/ dL [facility] Calcium [Mass/Vol] 7.8 mg/dL Low 8.6 - 10.4 mg/dL [facility] Chloride [Moles/Vol] 112 mmol/L High 98 - 107 mmol/L [facility] CO2 [Moles/Vol] 15 mmol/L Low 20 - 31 mmol/L [facility] Creatinine [Mass/Vol] 1.0 mg/dL High 0.50 - 0.90 mg /dL [facility] Est Glosteffen Filt Rate 60 Low - PINF [facility] Comment on above: These results are [...] 107 mg/dL High 74 - 99 mg/dL [facility] Interpretation and review of laboratory results Abnormal [facility] Potassium [Moles/Vol] 3.5 mmol/L Low 3.7 - 5.3 mmol /L [facility] Protein [Mass/Vol] 5.2 g/dL Low 6.6 - 8.7 g/dL [facility] Sodium [Moles/Vol] 138 mmol/L 136 - 145 mmol/L [facility] Urea nitrogen [Mass/Vol] 15 mg/dL 8 - 23 mg/dL [facility] Urea nitrogen/Creatinine [Mass ratio] 15 mg/mg 9 - 20 [facility] Cult,Urineon 12-11-2023 Cult,Urine Specimen Description .URINE STRAIGHT CATH Culture NO GROWTH Report Status FINAL 12/11/[address] [facility] Comment on above: Performed By: #### C DP #### [facility] [address] [place] [address] Sales Professional Bilingual: Sravani Gordon MD #### MILTON MARTIN #### [facility] [address] [place] [address] Sales Professional Bilingual: Robi Veliz MD Culture, Urineon 12-11-2023 Microorganism identified Cx Nom (Unsp spec) NO GROWTH [facility] Specimen Description .URINE STRAIGHT CATH [facility] EKG Rhythm Stripon [facility] Gastrointestinal Panel, Mole cularon 12-11-2023 Campylobacter sp DNA HAWA+probe Nom (Unsp spec) NEGATIVE: No Campylobacter spp. (jejuni or coli) DNA Detected NEGATIVE: No Campylobacter spp. (jejuni or coli) DNA Detecte [facility] E. coli enterotoxigenic eltA+estB genes HAWA+probe Ql (Stl) NEGATIVE: No Enterotoxigenic E. coli (ETEC) Heat-labile and heat-stable (LT/ST) DNA Detected NEGATIVE: No Enterotoxigenic E. coli (ETEC) Heat-labile and [facility] Interpretation and review of laboratory results Abnormal [facility] P. shigelloides DNA HAWA+probe Ql (Stl) Negative NEGATIVE: No Plesionomas shigelloides DNA Detected [facility] Salmonella sp DNA HAWA+probe Ql (Unsp spec) Positive Abnormal NEGATIVE: No Salmonella spp. DNA Detected [facility] Comment on above: Results reported to the appropriate Health Department Shiga toxin stx gene HAWA+probe Nom (Unsp spec) Negative NEGATIVE: No Shiga toxin-producing gene(s) Detected [facility] Shigella sp DNA HAWA+probe Ql (Unsp spec) Negative NEGATIVE: No Shigella spp. / EIEC DNA Detected [facility] Specimen Description .FECES [facility] V. cholerae+parahaemolyt icus rfbL+trkH+tnaA genes HAWA+probe Ql (Stl) NEGATIVE: No Vibrio (V. vulnificus, V, parahaemolyticus and V. cholerae) DNA Detected NEGATIVE: No Vibrio (V. vulnificus, V, parahaemolyticus and [facility] Y. enterocolitica recN gene HAWA+probe Ql (Stl) Negative NEGATIVE: No Yersinia enterocolitica DNA Detected [facility] Lactic Acidon 12-11-2023 Lactate (BldV) [Moles/Vol] 1.4 mmol/L 0.5 - 2.2 mmol/L [facility] Lactate [Moles/Vol] 1.4 mmol/L Normal 0.5-2.2 [facility] Comment on above: Performed By: #### L ACTIC #### [facility] [address] [place] [address] Sales Professional Bilingual: Sravani Gordon MD Magnesiumon 12-11-2023 Magnesium [Mass/Vol] 2.3 mg/dL 1.6 - 2.4 mg/dL [facility] Magnesium [Mass/Vol] 2.3 mg/dL Normal 1.6-2.4 [facility] Comment on above: Performed By: #### T SHX #### [facility] [address] [place] [address] Sales Professional Bilingual: Sravani Gordon MD Stool PCR Batteryon 12-11-19 24 Campylobacter sp PCR NEGATIVE: No Campylobacter spp. (jejuni or coli) DNA Detected Normal [facility] Comment on above: Performed By: #### T SHX #### [facility] [address] [place], [place] [phone] Sales Professional Bilingual: Sravani Gordon MD E coli enterotox PCR NEGATIVE: No Enterotoxigenic E. coli (ETEC) Heat-labile and heat-stable (LT/ST) Normal EECNEG [facility] Comment on above: Result Comment: DNA Detected Performed By: #### T SHX #### [facility] [address] [place], [place] [phone] Sales Professional Bilingual: Sravani Gordon MD Plesiomonas sp PCR Negative Normal [facility]ENEG [facility] Comment on above: Performed By: #### T SHX #### [facility] [address] [place], [place] [phone] Sales Professional Bilingual: Sravani Gordon MD Salmonella sp PCR Positive Abnormal SALNEG [facility] Comment on above: Result Comment: Resu lts reported to the appropriate Health Department Performed By: #### T SHX #### [facility] [address] [place], [place] [phone] Sales Professional Bilingual: Sravani Gordon MD Shigatoxin gene PCR Negative Normal STXNEG [facility] Comment on above: Performed By: #### T SHX #### [facility] [address] [place], [place] [phone] Sales Professional Bilingual: Sravani Gordon MD Shigella sp PCR Negative Normal [facility] Comment on above: Performed By: #### T SHX #### [facility] [address] [place], [place] [phone] Sales Professional Bilingual: Sravani Gordon MD Vibrio sp PCR NEGATIVE: No Vibrio (V. vulnificus, V, parahaemolyticus and V. cholerae) DNA Normal VIBNEG [facility] Comment on above: Result Comment: Dete cted Performed By: #### T SHX #### [facility] [address] [place], [place] [phone] Sales Professional Bilingual: Sravani Gordon MD Yersinia gene PCR Negative Normal YERNEG [facility] Comment on above: Performed By: #### T SHX #### [facility] [address] [place], [place] [phone] Sales Professional Bilingual: Sravani Gordon MD C DIFF Toxin/Antigenon 12-09 C. difficile glutamate dehydrogenase and toxins A+B IA.rapid Ql (Stl) Negative NEGATIVE [facility] Comment on above: No C. difficile anti gen and Toxin Detected. Specimen Description .FECES [facility] C diff Ag + Toxinon 12-10-19 24 C diff Ag + Toxin Negative Normal NEG [facility] Comment on above: Result Comment: No C . difficile antigen and Toxin Detected. Performed By: #### T SHX #### [facility] [address] [place] [address] Sales Professional Bilingual: Sravani Gordon MD CBC auto differentialon 11-24 Basophils (Bld) [#/Vol] 0.00 10*3/uL [facility] Basophils/100 WBC (Bld) 0 % 0 - 2 % [facility] Eosinophils (Bld) [#/Vol] 0.00 10*3/uL [facility] Eosinophils/100 WBC (Bld) 0 % Low 1 - 4 % [facility] Erythrocyte distribution width (RBC) [Ratio] 14.1 % 11.8 - 14.4 % [facility] Hematocrit (Bld) [Volume fraction] 32.6 % Low 36.3 - 47.1 % [facility] Hemoglobin (Bld) [Mass/Vol] 10.6 g/dL Low 11.9 - 15.1 g/dL [facility] Immature granulocytes (Bld) [#/Vol] 0.00 10*3/uL [facility] Immature granulocytes/100 WBC (Bld) 0 % 0 [facility] Interpretation and review of laboratory results Abnormal [facility] Lymphocytes/100 WBC (Bld) 11 % Low 24 - 43 % [facility] Lymphocytes/100 WBC (Bld) 0.30 % Low [facility] MCH (RBC) [Entitic mass] 30.7 pg 25.2 - 33.5 pg [facility] MCHC (RBC) [Mass/Vol] 32.5 g/dL 28.4 - 34.8 g/ dL [facility] MCV (RBC) [Entitic vol] 94.5 fL 82.6 - 102.9 fL [facility] Monocytes/100 WBC (Bld) 2 % Low 3 - 12 % [facility] Monocytes/100 WBC (Bld) 0.05 % Low [facility] Morphology Wicho (Bld) [Interp] Normal [facility] Neutrophils/100 WBC (Bld) 87 % High 36 - 65 % [facility] Nucleated RBC/100 WBC (Bld) [Ratio] 0.0 % 0.0 per 100 WBC [facility] Platelet mean volume (Bld) [Entitic vol] 10.5 fL 8.1 - 13.5 fL [facility] Platelets (Bld) [#/Vol] 191 10*3/uL [facility] RBC (Bld) [#/Vol] 3.45 10*6/uL Low 3.95 - 5.11 m/uL [facility] Segmented neutrophils/100 WBC (Bld) 2.35 % [facility] WBC other (Bld) [#/Vol] 2.7 Low [facility] CBC with Diffon 12-10-2023 Abs. Basophil 0.00 k/uL Normal 0.0-0.2 [facility] Comment on above: Performed By: #### B C #### [place] [address] [place] [address] Sales Professional Bilingual: Robi Veliz MD [facility] [address] [place] [address] [place] [phone] Sales Professional Bilingual: Sravani Gordon MD Abs.Imm.Granulocyte 0.00 k/uL Normal 0.00-0.30 [facility] Comment on above: Performed By: #### B C #### [address] [address] Sales Professional Bilingual: Robi Veliz MD [facility] [address] [place] [address] [place] [address] Sales Professional Bilingual: Sravani Gordon MD Abs.Neutrophil (Seg) 2.35 k/uL Normal 1.50-8.10 [facility] Comment on above: Performed By: #### B C #### [address] [place] [address] Sales Professional Bilingual: Robi Veliz MD [facility] [address] [place] [address] [place] [address] Sales Professional Bilingual: Sravani Gordon MD Basophils/100 WBC (Bld) 0 % Normal 0-2 [facility] Comment on above: Performed By: #### B C #### [address] [place] [address] Sales Professional Bilingual: Robi Veliz MD [facility] [address] [place] [address] [place] [place] [phone] Sales Professional Bilingual: Sravani Gordon MD Eosinophils (Bld) [#/Vol] 0.00 10*3/uL Normal 0.00-0.44 [facility] Comment on above: Performed By: #### B C #### [address] [address] Sales Professional Bilingual: Robi Veliz MD [facility] [address] [place] [address] Dr. [place] [phone] Sales Professional Bilingual: Sravani Gordon MD Eosinophils/100 WBC (Bld) 0 % Low 1-4 [facility] Comment on above: Performed By: #### B C #### [address] [address] Sales Professional Bilingual: Robi Veliz MD [address] [place] [phone] Sales Professional Bilingual: Sravani Gordon MD Immature granulocytes/100 WBC (Bld) 0 % Normal 0 [facility] Comment on above: Performed By: #### B C #### [address] [address] Sales Professional Bilingual: Robi Veliz MD [facility] [address] [place] [address] Dr. [place] [phone] Sales Professional Bilingual: Sravani Gordon MD Lymphocytes (Bld) [#/Vol] 0.30 10*3/uL Low 1.10-3.70 [facility] Comment on above: Performed By: #### B C #### [address] [address] Sales Professional Bilingual: Robi Veliz MD [facility] [address] [place] [address] Dr. [place] [phone] Sales Professional Bilingual: Sravani Gordon MD Lymphocytes/100 WBC (Bld) 11 % Low 24-43 [facility] Comment on above: Performed By: #### B C #### [facility] [address] [place] [address] Sales Professional Bilingual: Robi Veliz MD [facility] [address] [place] [address] [address]. [place], [place] [phone] Sales Professional Bilingual: Sravani Gordon MD Monocytes (Bld) [#/Vol] 0.05 10*3/uL Low 0.10-1.20 [facility] Comment on above: Performed By: #### B C #### [facility] [address] [place] [address] Sales Professional Bilingual: Robi Veliz MD [address] [place] [phone] Sales Professional Bilingual: Sravani Gordon MD Monocytes/100 WBC (Bld) 2 % Low 3-12 [facility] Comment on above: Performed By: #### B C #### [facility] [address] [place] [address] Sales Professional Bilingual: Robi Veliz MD [address] [place] [place] [address] Sales Professional Bilingual: Sravani Gordon MD Morphology Wicho (Bld) [Interp] Normal Normal [facility] Comment on above: Performed By: #### B C #### [facility] [address] [place] [address] Sales Professional Bilingual: Robi Veliz MD [facility] [address] [place] [address] [address]. [place], [place] [phone] Sales Professional Bilingual: Sravani Gordon MD Neutrophil (Seg) 87 % High 36-65 [facility] Comment on above: Performed By: #### B C #### [facility] [address] [place] [address] Sales Professional Bilingual: Robi Veliz MD [facility] [address] [place] [address] Dr. [place] [phone] Sales Professional Bilingual: Sravani Gordon MD Erythrocyte distribution width (RBC) [Ratio] 14.1 % Normal 11.8-14.4 [facility] Comment on above: Performed By: #### B C #### [facility] [address] [place] [address] Sales Professional Bilingual: Robi Veliz MD [address] [place] [phone] Sales Professional Bilingual: Sravani Gordon MD Hematocrit (Bld) [Volume fraction] 32.6 % Low 36.3-47.1 [facility] Comment on above: Performed By: #### B C #### [address] [place] [place] [address] Sales Professional Bilingual: Robi Veliz MD [address] [place] [phone] Sales Professional Bilingual: Sravani Gordon MD Hemoglobin (Bld) [Mass/Vol] 10.6 g/dL Low 11.9-15.1 [facility] Comment on above: Performed By: #### B C #### [facility] [address] [place] [address] Sales Professional Bilingual: Robi Veliz MD [address] [place] [phone] Sales Professional Bilingual: Sravani Gordon MD MCH (RBC) [Entitic mass] 30.7 pg Normal 25.2-33.5 [facility] Comment on above: Performed By: #### B C #### [facility] [address] [place] [address] Sales Professional Bilingual: Robi Veliz MD [address] [place] [address] Sales Professional Bilingual: Sravani Gordon MD MCHC (RBC) [Mass/Vol] 32.5 g/dL Normal 28.4-34.8 [facility] Comment on above: Performed By: #### B C #### [address] [address] Sales Professional Bilingual: Robi Veliz MD [address] [place], [place] [phone] Sales Professional Bilingual: Sravani Gordon MD MCV (RBC) [Entitic vol] 94.5 fL Normal 82.6-102.9 [facility] Comment on above: Performed By: #### B C #### [address] [address] Sales Professional Bilingual: Robi Veliz MD [address] [place] [phone] Sales Professional Bilingual: Sravani Gordon MD NRBC Automated 0.0 per [address] [facility] Comment on above: Performed By: #### B C #### [address] [address] Sales Professional Bilingual: Robi Veliz MD [address] [place] [phone] Sales Professional Bilingual: Sravani Gordon MD Platelet mean volume (Bld) [Entitic vol] 10.5 fL Normal 8.1-13.5 [facility] Comment on above: Performed By: #### B C #### [address] [address] Sales Professional Bilingual: Robi Veliz MD [address] [place] [phone] Sales Professional Bilingual: Sravani Gordon MD Platelets (Bld) [#/Vol] 191 10*3/uL Normal 138-453 [facility] Comment on above: Performed By: #### B C #### [address] [address] Sales Professional Bilingual: Robi Veliz MD [address] [place] [phone] Sales Professional Bilingual: Sravani Gordon MD RBC (Bld) [#/Vol] 3.45 10*6/uL Low 3.95-5.11 [facility] Comment on above: Performed By: #### B C #### [facility] [address] [place] [address] Sales Professional Bilingual: Robi Veliz MD [facility] [address] [place] [address] Sales Professional Bilingual: Sravani Gordon MD WBC (Bld) [#/Vol] 2.7 10*3/uL Low 3.5-11.3 [facility] Comment on above: Performed By: #### B C #### [facility] [address] [place] [address] Sales Professional Bilingual: Robi Veliz MD [facility] [address] [place] [address] [place] [address] Sales Professional Bilingual: Sravani Gordon MD CT ABDOMEN PELVIS WO CONTRAS Ton [...] Minor Monroe MD 12/10/[address] [facility] CT Abdomen and Pelvis WO con traston 12-10-2023 Fluid-filled colon consistent with diarrheal state. [facility] RIS CONSOLIDATED EXAMINATION: CT OF THE ABDOMEN [...] destructive lesion Vasculature: No aneurysm Other: None [facility] CONSOLIDATED Minor Monroe MD - 12/10/2023 EXAMINATION: [...] IMPRESSION: Fluid-filled colon consistent with diarrheal state. [facility] Radiology Study observation (narrative) [facility] CT Abdomen and Pelvis WO con trastOrdered By: Minor Monroe on 12-10-2023 [facility] Work Phone: Comp Metabolic Pr/rfx MGon 0 12-10-2023 Albumin [Mass/Vol] 3.0 g/dL Low 3.5-5.2 [facility] Comment on above: Performed By: #### B C #### [address] [place] [address] Sales Professional Bilingual: Robi Veliz MD [facility] [address] [place] [address] Dr. [place] [phone] Sales Professional Bilingual: Sravani Gordon MD Albumin/Glob Ratio 1.5 Normal 1.0-2.5 [facility] Comment on above: Performed By: #### B C #### [address] [address] Sales Professional Bilingual: Robi Veliz MD [address] [place] [phone] Sales Professional Bilingual: Sravani Gordon MD Alkaline Phos 79 U/L Normal 35-104 [facility] Comment on above: Performed By: #### B C #### [facility] [address] [place] [address] Sales Professional Bilingual: Robi Veliz MD [address] [place], [place] [phone] Sales Professional Bilingual: Sravani Gordon MD ALT [Catalytic activity/Vol] 12 U/L Normal 10-35 [facility] Comment on above: Performed By: #### B C #### [address] [address] Sales Professional Bilingual: Robi Veliz MD [facility] [address] [place] [address] [place] [address] Sales Professional Bilingual: Sravani Gordon MD Anion gap [Moles/Vol] 12 mmol/L Normal 9-16 [facility] Comment on above: Performed By: #### B C #### [address] [address] Sales Professional Bilingual: Robi Veliz MD [facility] [address] [place] [address] Dr[address] [place], [place] [phone] Sales Professional Bilingual: Sravani Gordon MD AST [Catalytic activity/Vol] 17 U/L Normal 10-35 [facility] Comment on above: Performed By: #### B C #### [address] [address] Sales Professional Bilingual: Robi Veliz MD [facility] [address] [place] [address] Dr[place], [place] [phone] Sales Professional Bilingual: Sravani Gordon MD Bilirubin [Mass/Vol] mg/dL Normal 0.00-1.20 [facility] Comment on above: Performed By: #### B C #### [facility] [address] [place] [address] Sales Professional Bilingual: Robi Veliz MD [facility] [address] [place] [address] Dr. [place], [place] [phone] Sales Professional Bilingual: Sravani Gordon MD BUN/CRE Ratio 20 Normal 9-20 [facility] Comment on above: Performed By: #### B C #### [facility] [address] [place] [address] Sales Professional Bilingual: Robi Veliz MD [facility] [address] [place] [address] [place] [address] Sales Professional Bilingual: Sravani Gordon MD Calcium [Mass/Vol] 7.3 mg/dL Low 8.6-10.4 [facility] Comment on above: Performed By: #### B C #### [facility] [address] [place] [address] Sales Professional Bilingual: Robi Veliz MD [facility] [address] [place] [phone] Sales Professional Bilingual: Sravani Gordon MD Chloride [Moles/Vol] 107 mmol/L Normal 98-107 [facility] Comment on above: Performed By: #### B C #### [facility] [address] [place] [address] Sales Professional Bilingual: Robi Veliz MD [facility] [address] [place] [address] [place] [address] Sales Professional Bilingual: Sravani Gordon MD CO2 [Moles/Vol] 16 mmol/L Low 20-31 [facility] Comment on above: Performed By: #### B C #### [facility] [address] [place] [address] Sales Professional Bilingual: Robi Veliz MD [facility] [address] [place] [address] [place] [address] Sales Professional Bilingual: Sravani Gordon MD Creatinine [Mass/Vol] 1.4 mg/dL High 0.50-0.90 [facility] Comment on above: Performed By: #### B C #### [facility] [address] [place] [address] Sales Professional Bilingual: Robi Veliz MD [facility] [address] [place] [address] Sales Professional Bilingual: Sravani Gordon MD GFR/1.73 sq M.predicted among non-blacks MDRD (S/P/Bld) [Vol rate/Area] 42 mL/min/{1.73_m2} Low >60 [facility] Comment on above: Result Comment: These [...] affects renal tubular secretion. Performed By: #### B C #### [facility] [address] [place] [address] Sales Professional Bilingual: Robi Veliz MD [facility] [address] [place] [address] Dr[place], [place] [phone] Sales Professional Bilingual: Sravani Gordon MD Glucose [Mass/Vol] 129 mg/dL High 74-99 [facility] Comment on above: Performed By: #### B C #### [address] [address] Sales Professional Bilingual: Robi Veliz MD [facility] [address] [place] [address] Dr. [place], [place] [phone] Sales Professional Bilingual: Sravani Gordon MD Potassium [Moles/Vol] 3.6 mmol/L Low 3.7-5.3 [facility] Comment on above: Performed By: #### B C #### [address] [address] Sales Professional Bilingual: Robi Veliz MD [address] [place], [place] [phone] Sales Professional Bilingual: Sravani Gordon MD Protein [Mass/Vol] 5.0 g/dL Low 6.6-8.7 [facility] Comment on above: Performed By: #### B C #### [facility] [address] [place] [address] Sales Professional Bilingual: Robi Veliz MD [facility] [address] [place] [address] Dr. [place], [place] [phone] Sales Professional Bilingual: Sravani Gordon MD Sodium [Moles/Vol] 135 mmol/L Low 136-145 [facility] Comment on above: Performed By: #### B C #### [facility] [address] [place] [address] [phone] Sales Professional Bilingual: Robi Veliz MD [facility] [address] [place] [address] Sales Professional Bilingual: Sravani Gordon MD Urea nitrogen [Mass/Vol] 28 mg/dL High 8-23 [facility] Comment on above: Performed By: #### B C #### [facility] [address] [place] [address] Sales Professional Bilingual: Robi Veliz MD [facility] [address] [place] [address] Sales Professional Bilingual: Sravani Gordon MD Comprehensive Metabolic Pane l w/ Reflex to MGon 12-10-2023 Albumin [Mass/Vol] 3.0 g/dL Low 3.5 - 5.2 g/dL [facility] Albumin/Globulin [Mass ratio] 1.5 {ratio} 1.0 - 2.5 [facility] ALP [Catalytic activity/Vol] 79 U/L 35 - 104 U/L [facility] ALT [Catalytic activity/Vol] 12 U/L 10 - 35 U/L [facility] Anion gap [Moles/Vol] 12 mmol/L 9 - 16 mmol/L [facility] AST [Catalytic activity/Vol] 17 U/L 10 - 35 U/L [facility] Bilirubin [Mass/Vol] mg/dL 0.00 - 1.20 mg/ dL [facility] Calcium [Mass/Vol] 7.3 mg/dL Low 8.6 - 10.4 mg/dL [facility] Chloride [Moles/Vol] 107 mmol/L 98 - 107 mmol/L [facility] CO2 [Moles/Vol] 16 mmol/L Low 20 - 31 mmol/L [facility] Creatinine [Mass/Vol] 1.4 mg/dL High 0.50 - 0.90 mg /dL [facility] Est, Glom Filt Rate 42 Low - PINF [facility] Comment on above: These results are [...] 129 mg/dL High 74 - 99 mg/dL [facility] Interpretation and review of laboratory results Abnormal [facility] Potassium [Moles/Vol] 3.6 mmol/L Low 3.7 - 5.3 mmol /L [facility] Protein [Mass/Vol] 5.0 g/dL Low 6.6 - 8.7 g/dL [facility] Sodium [Moles/Vol] 135 mmol/L Low 136 - 145 mmol/L [facility] Urea nitrogen [Mass/Vol] 28 mg/dL High 8 - 23 mg/dL [facility] Urea nitrogen/Creatinine [Mass ratio] 20 mg/mg 9 - 20 [facility] EKG 12 Leadon 12-10-2023 Atrial Rate 111 BPM [facility] P [place] 27 degrees [facility] P-R Interval 90 ms [facility] Q-T Interval 452 ms [facility] QRS Duration 64 ms [facility] QTc Calculation (Bazett) 614 ms [facility] R [place] -13 degrees [facility] T [place] 88 degrees [facility] Ventricular Rate 111 BPM [facility] Sinus tachycardia with short ND ST & T wave abnormality, consider lateral ischemia Prolonged QT Abnormal ECG When compared with ECG of 26-FEB-2023 04:32, Nonspecific T wave abnormality now evident in Inferior leads T wave inversion now evident in Lateral leads Confirmed by RUSSELL HOBSON ([id number]) on 12/10/2023 9:42:25 AM [facility] RADI[facility] Russell Hobson MD - 12/10/2023 Sinus tachycardia with short ND ST & T wave abnormality, consider lateral ischemia Prolonged QT Abnormal ECG When compared with ECG of 26-FEB-2023 04:32, Nonspecific T wave abnormality now evident in Inferior leads T wave inversion now evident in Lateral leads Confirmed by RUSSELL HOBSON ([id number]) on 12/10/2023 9:42:25 AM [facility] EKG Rhythm Stripon [facility] Lactic Acidon 12-10-2023 Lactate (BldV) [Moles/Vol] 1.7 mmol/L 0.5 - 2.2 mmol/L [facility] Lactate [Moles/Vol] 1.7 mmol/L Normal 0.5-2.2 [facility] Comment on above: Performed By: #### L ACTIC #### [facility] [address] [place] [address] Sales Professional Bilingual: Sravani Gordon MD Stool PCR Batteryon 12-10-19 Specimen Description .FECES Normal [facility] Comment on above: Performed By: #### T SHX #### [facility] [address] [place] [address] Sales Professional Bilingual: Sravani Gordon MD C diff Ag + Toxinon 12-09-19 Specimen Description .FECES Normal [facility] Comment on above: Performed By: #### T SHX #### [facility] [address] [place] [address] Sales Professional Bilingual: Sravani Gordon MD CBC with Auto Differentialon 12-09-2023 Basophils (Bld) [#/Vol] 0.00 10*3/uL [facility] Basophils/100 WBC (Bld) 0 % 0 - 2 % [facility] Eosinophils (Bld) [#/Vol] 0.00 10*3/uL [facility] Eosinophils/100 WBC (Bld) 0 % Low 1 - 4 % [facility] Erythrocyte distribution width (RBC) [Ratio] 14.1 % 11.8 - 14.4 % [facility] Hematocrit (Bld) [Volume fraction] 39.4 % 36.3 - 47.1 % [facility] Hemoglobin (Bld) [Mass/Vol] 13.1 g/dL 11.9 - 15.1 g/dL [facility] Immature granulocytes (Bld) [#/Vol] 0.05 10*3/uL [facility] Immature granulocytes/100 WBC (Bld) 1 % High 0 [facility] Interpretation and review of laboratory results Abnormal [facility] Lymphocytes/100 WBC (Bld) 9 % Low 24 - 43 % [facility] Lymphocytes/100 WBC (Bld) 0.49 % Low [facility] MCH (RBC) [Entitic mass] 31.3 pg 25.2 - 33.5 pg [facility] MCHC (RBC) [Mass/Vol] 33.2 g/dL 28.4 - 34.8 g/ dL [facility] MCV (RBC) [Entitic vol] 94.3 fL 82.6 - 102.9 fL [facility] Monocytes/100 WBC (Bld) 15 % High 3 - 12 % [facility] Monocytes/100 WBC (Bld) 0.81 % [facility] Morphology Wicho (Bld) [Interp] Normal [facility] Neutrophils/100 WBC (Bld) 75 % High 36 - 65 % [facility] Nucleated RBC/100 WBC (Bld) [Ratio] 0.0 % 0.0 per 100 WBC [facility] Platelet mean volume (Bld) [Entitic vol] 10.5 fL 8.1 - 13.5 fL [facility] Platelets (Bld) [#/Vol] 241 10*3/uL [facility] RBC (Bld) [#/Vol] 4.18 10*6/uL 3.95 - 5.11 m/uL [facility] Segmented neutrophils/100 WBC (Bld) 4.05 % [facility] WBC other (Bld) [#/Vol] 5.4 [facility] CBC with Diffon 12-09-2023 Abs. Basophil 0.00 k/uL Normal 0.0-0.2 [facility] Comment on above: Performed By: #### C DP #### [facility] [address] [place] [phone] Sales Professional Bilingual: Sravani Gordon MD #### VERONICA, FERI #### [place] [phone] Sales Professional Bilingual: Robi Veliz MD Abs.Imm.Granulocyte 0.05 k/uL Normal 0.00-0.30 [facility] Comment on above: Performed By: #### C DP #### [facility] [address] [place] [address] Dr. [place] [phone] Sales Professional Bilingual: Sravani Gordon MD #### VERONICA, FERI #### [place] [address] Sales Professional Bilingual: Robi Veliz MD Abs.Neutrophil (Seg) 4.05 k/uL Normal 1.50-8.10 [facility] Comment on above: Performed By: #### C DP #### [facility] [address] [place] [address] Dr. [place] [phone] ( Sales Professional Bilingual: Sravani Gordon MD #### VERONICA, FERI #### [place] [address] Sales Professional Bilingual: Robi Veliz MD Basophils/100 WBC (Bld) 0 % Normal 0-2 [facility] Comment on above: Performed By: #### C DP #### [address] [place] [phone] Sales Professional Bilingual: Sravani Gordon MD #### VERONICA, FERI #### [place] [address] Sales Professional Bilingual: Robi Veliz MD Eosinophils (Bld) [#/Vol] 0.00 10*3/uL Normal 0.00-0.44 [facility] Comment on above: Performed By: #### C DP #### [address] [place] [phone] Sales Professional Bilingual: Sravani Gordon MD #### FEBC, FERI #### [facility] [address] [place], [place] [phone] Sales Professional Bilingual: Robi Veliz MD Eosinophils/100 WBC (Bld) 0 % Low 1-4 [facility] Comment on above: Performed By: #### C DP #### [facility] [address] [place] [phone] Sales Professional Bilingual: Sravani Gordon MD #### FEBC, FERI #### [address] [address] Sales Professional Bilingual: Robi Veliz MD Immature granulocytes/100 WBC (Bld) 1 % High 0 [facility] Comment on above: Performed By: #### C DP #### [facility] [address] [place] [address] Dr. [place] [phone] Sales Professional Bilingual: Sravani Gordon MD #### FEDESTINY, FERI #### [address] [address] Sales Professional Bilingual: Robi Veliz MD Lymphocytes (Bld) [#/Vol] 0.49 10*3/uL Low 1.10-3.70 [facility] Comment on above: Performed By: #### C DP #### [facility] [address] [place] [address] Dr. [place] [phone] Sales Professional Bilingual: Sravani Gordon MD #### FEBC, FERI #### [address] [address] Sales Professional Bilingual: Robi Veliz MD Lymphocytes/100 WBC (Bld) 9 % Low 24-43 [facility] Comment on above: Performed By: #### C DP #### [facility] [address] [place] [phone] Sales Professional Bilingual: Sravani Gordon MD #### FEBC, FERI #### [address] [place] [address] Sales Professional Bilingual: Robi Veliz MD Monocytes (Bld) [#/Vol] 0.81 10*3/uL Normal 0.10-1.20 [facility] Comment on above: Performed By: #### C DP #### [facility] [address] [place] [address] [place] [address] Sales Professional Bilingual: Sravani Gordon MD #### VERONICA, FERI #### [address] [address] Sales Professional Bilingual: Robi Veliz MD Monocytes/100 WBC (Bld) 15 % High 3-12 [facility] Comment on above: Performed By: #### C DP #### [address] [place] [address] Sales Professional Bilingual: Sravani Gordon MD #### VERONICA FERI #### [address] [address] Sales Professional Bilingual: Robi Veliz MD Morphology Wicho (Bld) [Interp] Normal Normal [facility] Comment on above: Performed By: #### C DP #### [address] [place] [address] Sales Professional Bilingual: Sravani Gordon MD #### VERONICA FERI #### [address] [address] Sales Professional Bilingual: Robi Veliz MD Neutrophil (Seg) 75 % High 36-65 [facility] Comment on above: Performed By: #### C DP #### [address] [place] [address] Sales Professional Bilingual: Sravani Gordon MD #### VERONICA FERI #### [address] [address] Sales Professional Bilingual: Robi Veliz MD Erythrocyte distribution width (RBC) [Ratio] 14.1 % Normal 11.8-14.4 [facility] Comment on above: Performed By: #### C DP #### [address] [place] [phone] Sales Professional Bilingual: Sravani Gordon MD #### VERONICA, FERI #### [address] [phone] Sales Professional Bilingual: Robi Veliz MD Hematocrit (Bld) [Volume fraction] 39.4 % Normal 36.3-47.1 [facility] Comment on above: Performed By: #### C DP #### [address] [place] [phone] Sales Professional Bilingual: Sravani Gordon MD #### VERONICA, FERI #### [place] [phone] Sales Professional Bilingual: Robi Veliz MD Hemoglobin (Bld) [Mass/Vol] 13.1 g/dL Normal 11.9-15.1 [facility] Comment on above: Performed By: #### C DP #### [address] [place] [phone] Sales Professional Bilingual: Sravani Gordon MD #### VERONICA, FERI #### [address] [address] Sales Professional Bilingual: Robi Veliz MD MCH (RBC) [Entitic mass] 31.3 pg Normal 25.2-33.5 [facility] Comment on above: Performed By: #### C DP #### [address] [place] [address] Sales Professional Bilingual: Sravani Gordon MD #### VERONICA, FERI #### [address] [phone] Sales Professional Bilingual: Robi Veliz MD MCHC (RBC) [Mass/Vol] 33.2 g/dL Normal 28.4-34.8 [facility] Comment on above: Performed By: #### C DP #### [facility] [address] [place] [address] Dr. [place], [place] [phone] Sales Professional Bilingual: Sravani Gordon MD #### VERONICA, FERI #### [address] [phone] Sales Professional Bilingual: Robi Veliz MD MCV (RBC) [Entitic vol] 94.3 fL Normal 82.6-102.9 [facility] Comment on above: Performed By: #### C DP #### [address] [place] [phone] Sales Professional Bilingual: Sravani Gordon MD #### VERONICA, FERI #### [address] [phone] Sales Professional Bilingual: Robi Veliz MD NRBC Automated 0.0 per [address] [facility] Comment on above: Performed By: #### C DP #### [address] [place] [phone] Sales Professional Bilingual: Sravani Gordon MD #### VERONICA, FERI #### [address] [address] Sales Professional Bilingual: Robi Veliz MD Platelet mean volume (Bld) [Entitic vol] 10.5 fL Normal 8.1-13.5 [facility] Comment on above: Performed By: #### C DP #### [facility] [address] [place] [address] Dr. [place] [phone] Sales Professional Bilingual: Sravani Gordon MD #### VERONICA, FERI #### [address] [address] Sales Professional Bilingual: Robi Veliz MD Platelets (Bld) [#/Vol] 241 10*3/uL Normal 138-453 [facility] Comment on above: Performed By: #### C DP #### [facility] [address] [place], [place] [phone] Sales Professional Bilingual: Sravani Gordon MD #### FEDESTINY, FERI #### [address] [phone] Sales Professional Bilingual: Robi Veliz MD RBC (Bld) [#/Vol] 4.18 10*6/uL Normal 3.95-5.11 [facility] Comment on above: Performed By: #### C DP #### [facility] [address] [place] [address] Dr. [place], [place] [phone] Sales Professional Bilingual: Sravani Gordon MD #### VERONICA, FERI #### [address] [phone] Sales Professional Bilingual: Robi Veliz MD WBC (Bld) [#/Vol] 5.4 10*3/uL Normal 3.5-11.3 [facility] Comment on above: Performed By: #### C DP #### [address] [place], [place] [phone] Sales Professional Bilingual: Sravani Gordon MD #### VERONICA, FERI #### [address] [phone] Sales Professional Bilingual: Robi Veliz MD COVID-19, Rapidon 12-09-2023 SARS-CoV-2 (COVID-19) RdRp gene HAWA+probe Ql (Resp) Not detected Not Detected [facility] Comment on above: Rapid NAAT: The [...] management decisions. Fact sheet for Healthcare Providers: https://www.fda.gov/media/885203/download Fact sheet for Patients: https://www.fda.gov/media/011537/download Methodology: Isothermal Nucleic Acid Amplification Specimen Description .NASOPHARYNGEAL [facility] CT CERVICAL SPINE WO CONTRAS Ton 12-09-2023 [...] Heber Yung MD 12/09/[address] [facility] CT Cervical spine WO contras ton 12-09-2023 Radiology Study observation (narrative) [facility] CT HEAD WO CONTRASTon 2023 CT HEAD [...] Heber Yung MD 12/09/[address] [facility] CT Head WO contraston 2023 Radiology Study observation (narrative) [facility] WO CONTRAS Ton 12-09-2023 [...] known risk factors. Radiology 2017 http://pubs.rsna.or g/doi/full/10.1148/ radiol.7979184482 Interpreted by: Marbin Aldana MD Signed by: Marbin Aldana MD 12/09/[address] [facility] CT Thoracic spine WO contras ton [...] known risk factors. Radiology 2017 http://pubs.rsna.or g/doi/full/10.1148/ radiol.8984629178 [facility] EXAMINATION: CT OF THE THORACIC [...] lower lobe nodule, series 3, image 62. [facility] Marbin Aldana MD - 12/09/2023 [...] known risk factors. Radiology 2017 http://pubs.rsna.or g/doi/full/10.1148/ radiol.7722281619 [facility] Radiology Study observation (narrative) [facility] CT Thoracic spine WO contras tOrdered By: Marbin Aldana on 12-09-2023 [facility] Work Phone: Comp Metabolic Profon 2023 Albumin [Mass/Vol] 3.8 g/dL Normal 3.5-5.2 [facility] Comment on above: Performed By: #### C DP #### [facility] [address] [place] [address] [place] [address] Sales Professional Bilingual: Sravani Gordon MD #### MILTON MARTIN #### [facility] [place], [place] [phone] Sales Professional Bilingual: Robi Veliz MD Albumin/Glob Ratio 1.4 Normal 1.0-2.5 [facility] Comment on above: Performed By: #### C DP #### [facility] [address] [place] [address] [place] [address] Sales Professional Bilingual: Sravani Gordon MD #### MILTON MARTIN #### [facility] [place], [place] [phone] Sales Professional Bilingual: Robi Veliz MD Alkaline Phos 106 U/L High 35-104 [facility] Comment on above: Performed By: #### C DP #### [facility] [address] [place], [place] [phone] Sales Professional Bilingual: Sravani Gordon MD #### VERONICA, FERI #### [facility] [address] [place], [place] [phone] Sales Professional Bilingual: Robi Veliz MD ALT [Catalytic activity/Vol] 15 U/L Normal 10-35 [facility] Comment on above: Performed By: #### C DP #### [address] [place], [place] [phone] Sales Professional Bilingual: Sravani Gordon MD #### VERONICA, FERI #### [address] [phone] Sales Professional Bilingual: Robi Veliz MD Anion gap [Moles/Vol] 17 mmol/L High 9-16 [facility] Comment on above: Performed By: #### C DP #### [facility] [address] [place] [address] Dr. [place], [place] [phone] Sales Professional Bilingual: Sravani Gordon MD #### VERONICA, FERI #### [address] [phone] Sales Professional Bilingual: Robi Veliz MD AST [Catalytic activity/Vol] 15 U/L Normal 10-35 [facility] Comment on above: Performed By: #### C DP #### [facility] [address] [place] [address] Dr[place], [place] [phone] Sales Professional Bilingual: Sravani Gordon MD #### VERONICA, FERI #### [address] [address] Sales Professional Bilingual: Robi Veliz MD Bilirubin [Mass/Vol] 0.3 mg/dL Normal 0.00-1.20 [facility] Comment on above: Performed By: #### C DP #### [facility] [address] [place], [place] [phone] Sales Professional Bilingual: Sravani Gordon MD #### MILTON MARTIN #### [facility] [address] [place] [address] Sales Professional Bilingual: Robi Veliz MD BUN/CRE Ratio 14 Normal 9-20 [facility] Comment on above: Performed By: #### C DP #### [facility] [address] [place] [address] Sales Professional Bilingual: Sravani Gordon MD #### MILTON MARTIN #### [address] [address] Sales Professional Bilingual: Robi Veliz MD Calcium [Mass/Vol] 8.9 mg/dL Normal 8.6-10.4 [facility] Comment on above: Performed By: #### C DP #### [facility] [address] [place] [address] Sales Professional Bilingual: Sravani Gordon MD #### MILTON MARTIN #### [place] [address] [place] [address] Sales Professional Bilingual: Robi Veliz MD Chloride [Moles/Vol] 100 mmol/L Normal 98-107 [facility] Comment on above: Performed By: #### C DP #### [facility] [address] [place] [address] Sales Professional Bilingual: Sravani Gordon MD #### MILTON MARTIN #### [place] [address] [place] [address] Sales Professional Bilingual: Robi Veliz MD CO2 [Moles/Vol] 19 mmol/L Low 20-31 [facility] Comment on above: Performed By: #### C DP #### [facility] [address] [place] [address] [place] [address] Sales Professional Bilingual: Sravani Gordon MD #### VERONICA, SREEDHARI #### [place] [address] [place], [place] [phone] Sales Professional Bilingual: Robi Veliz MD Creatinine [Mass/Vol] 2.1 mg/dL High 0.50-0.90 [facility] Comment on above: Performed By: #### C DP #### [address] [place], [place] [phone] Sales Professional Bilingual: Sravani Gordon MD #### VERONICA, SREEDHARI #### [place] [address] [place], [place] [phone] Sales Professional Bilingual: Robi Veliz MD GFR/1.73 sq M.predicted among non-blacks MDRD (S/P/Bld) [Vol rate/Area] 25 mL/min/{1.73_m2} Low >60 [facility] Comment on above: Result Comment: These [...] secretion. Performed By: #### C DP #### [address] [place] [phone] Sales Professional Bilingual: Sravani Gordon MD #### VERONICA, FERI #### [place] [address] [place], [place] [phone] Sales Professional Bilingual: Robi Veliz MD Glucose [Mass/Vol] 149 mg/dL High 74-99 [facility] Comment on above: Performed By: #### C DP #### [address] [place] [address] Sales Professional Bilingual: Sravani Gordon MD #### FEDESTINY, FERI #### [address] [address] Sales Professional Bilingual: Robi Veliz MD Potassium [Moles/Vol] 3.9 mmol/L Normal 3.7-5.3 [facility] Comment on above: Performed By: #### C DP #### [facility] [address] [place], [place] [phone] Sales Professional Bilingual: Sravani Gordon MD #### VERONICA, FERI #### [address] [address] Sales Professional Bilingual: Robi Veliz MD Protein [Mass/Vol] 6.5 g/dL Low 6.6-8.7 [facility] Comment on above: Performed By: #### C DP #### [address] [place], [place] [phone] Sales Professional Bilingual: Sravani Gordon MD #### VERONICA, FERI #### [address] [address] Sales Professional Bilingual: Robi Veliz MD Sodium [Moles/Vol] 136 mmol/L Normal 136-145 [facility] Comment on above: Performed By: #### C DP #### [facility] [address] [place] [address] [place], [place] [phone] Sales Professional Bilingual: Sravani Gordon MD #### VERONICA, FERI #### [address] [address] Sales Professional Bilingual: Robi Veliz MD Urea nitrogen [Mass/Vol] 30 mg/dL High 8-23 [facility] Comment on above: Performed By: #### C DP #### [facility] [address] [place] [address] [place] [address] Sales Professional Bilingual: Sravani Gordon MD #### VERONICA, FERI #### [address] [address] Sales Professional Bilingual: Robi Veliz MD [facility] Metabolic [facility] 12-09-2023 Albumin [Mass/Vol] 3.8 g/dL 3.5 - 5.2 g/dL [facility] Albumin/Globulin [Mass ratio] 1.4 {ratio} 1.0 - 2.5 [facility] ALP [Catalytic activity/Vol] 106 U/L High 35 - 104 U/L [facility] ALT [Catalytic activity/Vol] 15 U/L 10 - 35 U/L [facility] Anion gap [Moles/Vol] 17 mmol/L High 9 - 16 mmol/L [facility] AST [Catalytic activity/Vol] 15 U/L 10 - 35 U/L [facility] Bilirubin [Mass/Vol] 0.3 mg/dL 0.00 - 1.20 mg/ dL [facility] Calcium [Mass/Vol] 8.9 mg/dL 8.6 - 10.4 mg/dL [facility] Chloride [Moles/Vol] 100 mmol/L 98 - 107 mmol/L [facility] CO2 [Moles/Vol] 19 mmol/L Low 20 - 31 mmol/L [facility] Creatinine [Mass/Vol] 2.1 mg/dL High 0.50 - 0.90 mg /dL [facility] Est, Glom Filt Rate 25 Low - PINF [facility] Comment on above: These results are [...] 149 mg/dL High 74 - 99 mg/dL [facility] Interpretation and review of laboratory results Abnormal [facility] Potassium [Moles/Vol] 3.9 mmol/L 3.7 - 5.3 mmol /L [facility] Protein [Mass/Vol] 6.5 g/dL Low 6.6 - 8.7 g/dL [facility] Sodium [Moles/Vol] 136 mmol/L 136 - 145 mmol/L [facility] Urea nitrogen [Mass/Vol] 30 mg/dL High 8 - 23 mg/dL [facility] Urea nitrogen/Creatinine [Mass ratio] 14 mg/mg 9 - 20 [facility] Lactic Acidon 12-09-2023 Lactate [Moles/Vol] 2.5 mmol/L High 0.5-2.2 [facility] Comment on above: Performed By: #### T SHX #### [facility] [address] [place] [address] Sales Professional Bilingual: Sravani Gordon MD Interpretation and review of laboratory results Abnormal [facility] Lactate (BldV) [Moles/Vol] 2.5 mmol/L High 0.5 - 2.2 mmol/L [facility] Microscopic Urinalysison Amorphous sediment LM Ql (Urine sed) 1+ Abnormal None [facility] Bacteria LM Ql (Urine sed) 2+ Abnormal None [facility] Casts LM.LPF (Urine sed) [#/Area] 2 TO 5 FINE GRANULAR /LPF [facility] Casts LM.LPF (Urine sed) [#/Area] 2 TO 5 WAXY /LPF [facility] Casts LM.LPF (Urine sed) [#/Area] 20 TO 50 HYALINE /LPF [facility] Epithelial cells LM.HPF (Urine sed) [#/Area] None [facility] Interpretation and review of laboratory results Abnormal [facility] Mucus Ql (Urine sed) 2+ Abnormal None [facility] RBC LM.HPF (Urine sed) [#/Area] 0 TO 2 [facility] WBC LM.HPF (Urine sed) [#/Area] 2 TO 5 [facility] No Panel Informationon 12-08 No acute intracranial [...] There is no prevertebral soft tissue swelling. [facility] RIS CONSOLIDATED Heber Yung MD - 12/09/2023 [...] No acute fracture in the cervical spine. [facility] No Panel InformationOrdered By: Heber Yung on 12-09-2023 [facility] Work Phone: Portable XR Chest AP single viewon 12-09-2023 No acute cardiopulmonary process. [facility] CONSOL[facility] EXAMINATION: ONE XRAY VIEW OF THE CHEST 12/09/2023 6:38 pm COMPARISON: 08/21/2023. HISTORY: ORDERING SYSTEM PROVIDED HISTORY: syncope TECHNOLOGIST PROVIDED HISTORY: syncope FINDINGS: The heart size is within normal limits. The pulmonary vasculature is also within normal limits. No acute infiltrates are seen. No pneumothoraces are noted. [facility] Carlos Sparrow MD - 12/09/2023 EXAMINATION: ONE XRAY VIEW OF THE CHEST 12/09/2023 6:38 pm COMPARISON: 08/21/2023. HISTORY: ORDERING SYSTEM PROVIDED HISTORY: syncope TECHNOLOGIST PROVIDED HISTORY: syncope FINDINGS: The heart size is within normal limits. The pulmonary vasculature is also within normal limits. No acute infiltrates are seen. No pneumothoraces are noted. IMPRESSION: No acute cardiopulmonary process. [facility] Radiology Study observation (narrative) [facility] Portable XR Chest AP single viewOrdered By: Carlos Sparrow on 12-09-2023 [facility] Work Phone: [id number] 12-09-2023 SARS-CoV-2 (COVID-19) RNA HAWA+probe Ql (Unsp spec) Not detected Normal [facility] Comment on above: Result Comment: Rapid NAAT: [...] management decisions. Fact sheet for Healthcare Providers: https://www.fda.gov/media/914429/download Fact sheet for Patients: https://www.fda.gov/media/223640/download Methodology: Isothermal Nucleic Acid Amplification Performed By: #### C DP #### [facility] [address] [place] [address] Sales Professional Bilingual: Sravani Gordon MD #### MILTON MARTIN #### [facility] [place] [address] Sales Professional Bilingual: Robi Veliz MD Troponinon 12-09-2023 Troponin I.cardiac High sensitivity method [Mass/Vol] 14 ng/L 0 - 14 ng/L [facility] Comment on above: High Sensitivity Tro ponin values cannot be compared with other Troponin methodologies. [facility] Troponin, High Sens 14 ng/L Normal 0-14 [facility] Comment on above: Result Comment: High Sensitivity Troponin values cannot be compared with other Troponin methodologies. Performed By: #### C DP #### [facility] [address] [place], [place] [phone] Sales Professional Bilingual: Sravani Gordon MD #### MILTON MARTIN #### [facility] [address] [place], [place] [phone] Sales Professional Bilingual: Robi Veliz MD Interpretation and review of laboratory results Abnormal [facility] Troponin I.cardiac High sensitivity method [Mass/Vol] 15 ng/L High 0 - 14 ng/L [facility] Comment on above: High Sensitivity Tro ponin values cannot be compared with other Troponin methodologies. [facility] Troponin, High Sens 15 ng/L High 0-14 [facility] Comment on above: Result Comment: High Sensitivity Troponin values cannot be compared with other Troponin methodologies. Performed By: #### T ROPI #### [facility] [address] [place], [place] [phone] Sales Professional Bilingual: Sravani Gordon MD UA w/Reflex Cultureon 2023 Bilirubin, SemiQt,Ur Negative Normal NEG [facility] Comment on above: Performed By: #### T SHX #### [facility] [address] [place], [place] [phone] Sales Professional Bilingual: Sravani Gordon MD Blood, Urine Negative Normal NEG [facility] Comment on above: Performed By: #### T SHX #### [facility] [address] [place], [place] [phone] Sales Professional Bilingual: Sravani Gordon MD Clarity (U) Clear Normal CLEAR [facility] Comment on above: Performed By: #### T SHX #### [facility] [address] [place], [place] [phone] Sales Professional Bilingual: Sravani Gordon MD Color (U) Yellow Normal YEL [facility] Comment on above: Performed By: #### T SHX #### [facility] [address] [place] [address] Dr[address] [place], [place] [phone] Sales Professional Bilingual: Sravani Gordon MD Glucose Ql (U) Negative Normal NEG [facility] in [facility] Comment on above: Performed By: #### T SHX #### [facility] [address] [place] [address] Dr. [place], [place] [phone] Sales Professional Bilingual: Sravani Gordon MD Ketones Ql (U) TRACE Abnormal NEG [facility] Comment on above: Performed By: #### T SHX #### [facility] [address] [place] [address] Dr[address] [place], [place] [phone] Sales Professional Bilingual: Sravani Gordon MD Leukocyte esterase Test strip Ql (U) Negative Normal NEG [facility] Comment on above: Performed By: #### T SHX #### [facility] [address] [place] [address] Dr. [place], [place] [phone] Sales Professional Bilingual: Sravani Gordon MD Nitrite,Ur Negative Normal [facility] Comment on above: Performed By: #### T SHX #### [facility] [address] [place] [address] Dr. [place], [place] [phone] Sales Professional Bilingual: Sravani Gordon MD PH,Ur 6.0 Normal 5.0-9.0 [facility] Comment on above: Performed By: #### T SHX #### [facility] [address] [place] [address] Dr[address] [place], [place] [phone] Sales Professional Bilingual: Sravani Gordon MD Protein Ql (U) TRACE Abnormal NEG [facility] Comment on above: Performed By: #### T SHX #### [facility] [address] [place] [address] Dr. [place], [place] [phone] Sales Professional Bilingual: Sravani Gordon MD Spec. [place],Ur >1.030 High 1.010-1.020 [facility] Comment on above: Performed By: #### T SHX #### [facility] [address] [place] [address] Sales Professional Bilingual: Sravani Gordon MD Urobilinogen,Ur Normal Normal 0.0-1.0 [facility] Comment on above: Performed By: #### T SHX #### [facility] [address] [place] [address] Sales Professional Bilingual: Sravani Gordon MD Urinalysis with Reflex to Cu ltureon 12-09-2023 Bilirubin Ql (U) Negative NEGATIVE [facility] Clarity (U) Clear Clear [facility] Color (U) Yellow Yellow [facility] Glucose Test strip (U) [Mass/Vol] Negative NEGATIVE mg/dL [facility] Hemoglobin Auto test strip Ql (U) Negative NEGATIVE [facility] Interpretation and review of laboratory results Abnormal [facility] Ketones (U) [Mass/Vol] TRACE Abnormal NEGATIVE mg/dL [facility] Leukocyte esterase Test strip Ql (U) Negative NEGATIVE [facility] Nitrite Ql (U) Negative NEGATIVE [facility] pH (U) 6.0 [pH] 5.0 - 9.0 [facility] Protein (U) [Mass/Vol] TRACE Abnormal NEGATIVE mg/dL [facility] Specific gravity (U) [Rel density] High 1.010 - 1.020 [facility] Urobilinogen Qn (U) Normal 0.0 - 1.0 EU/dL [facility] Urinalysis,Microon 4 Amorphous sediment LM Ql (Urine sed) 1+ Abnormal [facility] Comment on above: Performed By: #### T SHX #### [facility] [address] [place] [address] Sales Professional Bilingual: Sravani Gordon MD Bacteria 2+ Abnormal [facility] Comment on above: Performed By: #### T SHX #### [facility] [address] [place], [place] [phone] Sales Professional Bilingual: Sravani Gordon MD Casts [address] [facility] Comment on above: Result Comment: FINE GRANULAR 2 TO 5 WAXY 20 TO 50 HYALINE Performed By: #### T SHX #### [facility] [address] [place], [place] [phone] Sales Professional Bilingual: Sravani Gordon MD Epithelial cells LM Ql (Urine sed) None Normal 0-25 [facility] Comment on above: Performed By: #### T SHX #### [facility] [address] [place], [place] [phone] Sales Professional Bilingual: Sravani Gordon MD Mucus Strands 2+ Abnormal NONE [facility] Comment on above: Performed By: #### T SHX #### [facility] [address] [place], [place] 139[address]83 Sales Professional Bilingual: Sraavni Gordon MD Urine RBC's 0 TO 2 Normal 0-2 [facility] Comment on above: Performed By: #### T SHX #### [facility] [address] [place], [place] [phone] Sales Professional Bilingual: Sravani Gordon MD Urine WBC's 2 TO 5 Normal 0-5 [facility] Comment on above: Performed By: #### T SHX #### [facility] [address] [place] [phone] Sales Professional Bilingual: Sravani Gordon MD XR CHEST PORTABLEon 12-09-19 24 XR CHEST PORTABLE EXAMINATION: ONE XRAY VIEW [...] Carlos Sparrow MD 12/09/[address] [facility] No Panel Informationon 10-10 EXAMINATION: THREE [...] sclerosis at the distal 2nd metatarsal neck. [facility] Mateo Farnsworth MD - 10/11/2023 EXAMINATION: THREE XRAY VIEWS [...] Stable sclerosis at the distal 2nd metatarsal. [facility] [employer] No Panel InformationOrdered By: Mateo May on 10-11-2023 [facility] [employer] Work Phone: XR ANKLE LEFT (MIN 3 [...] Mateo May MD 10/11/[address] [facility] XR FOOT LEFT (MIN 3 VIEWS)on [...] Mateo May MD 10/11/[address] [facility] CBC with Auto Differentialon 10-09-2023 Basophils (Bld) [#/Vol] 0.12 10*3/uL [facility] Immature granulocytes (Bld) [#/Vol] [facility] Interpretation and review of laboratory results Abnormal [facility] Lymphocytes/100 WBC (Bld) 1.50 % [facility] Monocytes/100 WBC (Bld) 0.89 % [facility] Neutrophils/100 WBC (Bld) 61 % 36 - 65 % [facility] Nucleated RBC/100 WBC (Bld) [Ratio] 0.0 % 0.0 per 100 WBC [facility] Segmented neutrophils/100 WBC (Bld) 4.56 % [facility] WBC other (Bld) [#/Vol] 7.5 [facility] CBC with Diffon 10-09-2023 Basophils/100 WBC (Bld) 2 % Normal 0-2 [facility] Comment on above: Performed By: #### C DP #### [facility] [address] [place] [address] [place] [address] Sales Professional Bilingual: Sravani Gordon MD #### MILTON MARTIN #### [place] [phone] Sales Professional Bilingual: Robi Veliz MD Eosinophils (Bld) [#/Vol] 0.38 10*3/uL Normal 0.00-0.44 [facility] Comment on above: Performed By: #### C DP #### [facility] [address] [place] [phone] Sales Professional Bilingual: Sravani Gordon MD #### MILTON MARTIN #### [place] [phone] Sales Professional Bilingual: Robi Veliz MD Eosinophils/100 WBC (Bld) 5 % High 1-4 [facility] Comment on above: Performed By: #### C DP #### [address] [place] [address] Sales Professional Bilingual: Sravani Gordon MD #### SREEDHAR MARTINI #### [place] [address] [place], [place] [phone] Sales Professional Bilingual: Robi Veliz MD Erythrocyte distribution width (RBC) [Ratio] 13.4 % Normal 11.8-14.4 [facility] Comment on above: Performed By: #### C DP #### [address] [place] [address] Sales Professional Bilingual: Sravani Gordon MD #### MILTON MARTIN #### [address] [address] Sales Professional Bilingual: Robi Veliz MD Hematocrit (Bld) [Volume fraction] 46.7 % Normal 36.3-47.1 [facility] Comment on above: Performed By: #### C DP #### [address] [place] [address] Sales Professional Bilingual: Sravani Gordon MD #### SREEDHAR MARTINI #### [address] [phone] Sales Professional Bilingual: Robi Veliz MD Hemoglobin (Bld) [Mass/Vol] 14.9 g/dL Normal 11.9-15.1 [facility] Comment on above: Performed By: #### C DP #### [address] [place] [address] Sales Professional Bilingual: Sravani Gordon MD #### VERONICA FERI #### [place] [address] [place], [place] [phone] Sales Professional Bilingual: Robi Veliz MD Immature granulocytes/100 WBC (Bld) 0 % Normal 0 [facility] Comment on above: Performed By: #### C DP #### [address] [place] [address] Sales Professional Bilingual: Sravani Gordon MD #### FEDESTINY, FERI #### [place] [address] [place] [address] Sales Professional Bilingual: Robi Veliz MD Lymphocytes/100 WBC (Bld) 20 % Low 24-43 [facility] Comment on above: Performed By: #### C DP #### [address] [place] [phone] Sales Professional Bilingual: Sravani Gordon MD #### VERONICA, FERI #### [place] [phone] Sales Professional Bilingual: Robi Veliz MD MCH (RBC) [Entitic mass] 29.9 pg Normal 25.2-33.5 [facility] Comment on above: Performed By: #### C DP #### [address] [place] [phone] Sales Professional Bilingual: Sravani Gordon MD #### VERNOICA, FERI #### [place] [phone] Sales Professional Bilingual: Robi Veliz MD MCHC (RBC) [Mass/Vol] 31.9 g/dL Normal 28.4-34.8 [facility] Comment on above: Performed By: #### C DP #### [address] [place] [phone] Sales Professional Bilingual: Sravani Gordon MD #### VERONICA, FERI #### [place] [phone] Sales Professional Bilingual: Robi Veliz MD MCV (RBC) [Entitic vol] 93.6 fL Normal 82.6-102.9 [facility] Comment on above: Performed By: #### C DP #### [address] [place] [address] Sales Professional Bilingual: Sravani Gordon MD #### FEBC, FERI #### [place] [phone] Sales Professional Bilingual: Robi Veliz MD Monocytes/100 WBC (Bld) 12 % Normal 3-12 [facility] Comment on above: Performed By: #### C DP #### [address] [place] [phone] Sales Professional Bilingual: Sravani Gordon MD #### FEDESTINY, FERI #### [place] [phone] Sales Professional Bilingual: Robi Veliz MD Platelet mean volume (Bld) [Entitic vol] 10.5 fL Normal 8.1-13.5 [facility] Comment on above: Performed By: #### C DP #### [address] [place] [phone] ( Sales Professional Bilingual: Sravani Gordon MD #### FEDESTINY, FERI #### [place] [address] Sales Professional Bilingual: Robi Veliz MD Platelets (Bld) [#/Vol] 389 10*3/uL Normal 138-453 [facility] Comment on above: Performed By: #### C DP #### [address] [place] [phone] Sales Professional Bilingual: Sravani Gordon MD #### FEBC, FERI #### [place] [phone] Sales Professional Bilingual: Robi Veliz MD RBC (Bld) [#/Vol] 4.99 10*6/uL Normal 3.95-5.11 [facility] Comment on above: Performed By: #### C DP #### [address] [place] [phone] Sales Professional Bilingual: Sravani Gordon MD #### FEDESTINY, FERI #### [place] [phone] Sales Professional Bilingual: Robi Veliz MD Abs. Basophil 0.12 k/uL Normal 0.00-0.20 [facility] Comment on above: Performed By: #### C DP #### [facility] [address] [place] [address] Dr. [place] [phone] Sales Professional Bilingual: Sravani Gordon MD #### VERONICA, FERI #### [place] [address] Sales Professional Bilingual: Robi Veliz MD Abs.Imm.Granulocyte <0.03 Normal 0.00-0.30 [facility] Comment on above: Performed By: #### C DP #### [address] [place] [address] Sales Professional Bilingual: Sravani Gordon MD #### VERONICA, FERI #### [place] [address] Sales Professional Bilingual: Robi Veliz MD Abs.Neutrophil (Seg) 4.56 k/uL Normal 1.50-8.10 [facility] Comment on above: Performed By: #### C DP #### [address] [place] [address] Sales Professional Bilingual: Sravani Gordon MD #### VERONICA, FERI #### [place] [address] Sales Professional Bilingual: Robi Veliz MD Lymphocytes (Bld) [#/Vol] 1.50 10*3/uL Normal 1.10-3.70 [facility] Comment on above: Performed By: #### C DP #### [address] [place] [phone] ( Sales Professional Bilingual: Sravani Gordon MD #### FEBC, FERI #### [place] [address] [place] [address] Sales Professional Bilingual: Robi Veliz MD Monocytes (Bld) [#/Vol] 0.89 10*3/uL Normal 0.10-1.20 [facility] Comment on above: Performed By: #### C DP #### [facility] [address] [place] [address] [place], [place] [phone] Sales Professional Bilingual: Sravani Gordon MD #### FEDESTINY, FERI #### [address] [phone] Sales Professional Bilingual: Robi Veliz MD Neutrophil (Seg) 61 % Normal 36-65 [facility] Comment on above: Performed By: #### C DP #### [address] [place] [phone] Sales Professional Bilingual: Sravani Gordon MD #### VERONICA, FERI #### [address] [address] Sales Professional Bilingual: Robi Veliz MD NRBC Automated 0.0 per [address] [facility] Comment on above: Performed By: #### C DP #### [address] [place], [place] [phone] Sales Professional Bilingual: Sravani Gordon MD #### VERONICA, FERI #### [address] [address] Sales Professional Bilingual: Robi Veliz MD WBC (Bld) [#/Vol] 7.5 10*3/uL Normal 3.5-11.3 [facility] Comment on above: Performed By: #### C DP #### [facility] [address] [place] [address] Dr. [place], [place] [phone] Sales Professional Bilingual: Sravani Gordon MD #### VERONICA, FERI #### [address] [place] [address] Sales Professional Bilingual: Robi Veliz MD Ferritinon 10-09-2023 Ferritin [Mass/Vol] 23 ng/mL 13 - 150 ng/mL B ON [facility] Comment on above: No reference range e stablished for this age/gender. Ferritin [Mass/Vol] 23 ng/mL Normal 13-150 [facility] Comment on above: Result Comment: No r eference range established for this age/gender. Performed By: #### C DP #### [facility] [address] [place] [address] Sales Professional Bilingual: Sravani Gordon MD #### VERONICA, FERI #### [place] [address] [place] [address] Sales Professional Bilingual: Robi Veliz MD Iron Binding Cap.on 10-09-19 24 % Fe Saturation 18 % Low 20-55 [facility] Comment on above: Performed By: #### C DP #### [facility] [address] [place] [address] Sales Professional Bilingual: Sravani Gordon MD #### VERONICA, FERI #### [place] [address] [place] [address] Sales Professional Bilingual: Robi Veliz MD Iron [Mass/Vol] 75 ug/dL Normal 37-145 [facility] Comment on above: Performed By: #### C DP #### [facility] [address] [place], [place] [phone] Sales Professional Bilingual: Sravani Gordon MD #### VERONICA, FERI #### [place] [address] [place] [address] Sales Professional Bilingual: Robi Veliz MD Total Fe Binding Cap 417 ug/dL Normal 250-450 [facility] Comment on above: Performed By: #### C DP #### [facility] [address] [place] [address] Sales Professional Bilingual: Sravani Gordon MD #### FEBC, FERI #### [facility] [address] [place], [place] [phone] Sales Professional Bilingual: Robi Veliz MD Unbound Fe Bind Cap 342 ug/dL Normal 112-347 [facility] Comment on above: Performed By: #### C DP #### [facility] [address] [place] [address] Sales Professional Bilingual: Sravani Gordon MD #### FEBC, FERI #### [facility] [address] [place], [place] [phone] Sales Professional Bilingual: Robi Veliz MD Iron and TIBCon 10-09-2023 Interpretation and review of laboratory results Abnormal lettrs Iron [Mass/Vol] 75 ug/dL 37 - 145 ug/dL [facility] [employer] Iron binding capacity [Mass/Vol] 417 ug/dL 250 - 450 ug/dL [employer] [facility] [employer] Iron saturation [Mass fraction] 18 % Low 20 - 55 % lettrs UIBC 342 ug/dL 112 - 347 ug/dL [facility] [place] No Panel Informationon 10-08 [facility] XR Ankle - left 3 [facility] Study observation (narrative) [facility] XR Foot - left 3 [facility] Study observation (narrative) [facility] No Panel InformationOrdered By: Mauricio Lawrence on 10-02-2023 Baseline Diastolic BP 80 mmHg lettrs Work Phone: Baseline HR 115 bpm [facility] [employer] Work Phone: Baseline Systolic BP 128 mmHg [facility] [employer] Work Phone: Nuc Stress EF 83 % [facility] [employer] Work Phone: Recovery Stage 1 BP 110/72 mmHg [facility] [employer] Work Phone: Recovery Stage 1 Duration 0 min:sec [facility] [employer] Work Phone: Recovery Stage 1 HR 142 bpm BON S RADHA [employer] Work Phone: Recovery Stage 2 Duration 1 min:sec BON BIJAN [employer] Work Phone: Recovery Stage 2 HR 136 bpm BON S ECOARJUN [employer] Work Phone: Recovery Stage 3 BP 110/78 mmHg BON S ECOARJUN [employer] Work Phone: Recovery Stage 3 Duration 3 min:sec BON BIJAN [employer] Work Phone: Recovery Stage 3 HR 126 bpm BON S ECOARJUN [employer] Work Phone: Recovery Stage 4 BP 122/68 mmHg BON S ECOARJUN [employer] Work Phone: Recovery Stage 4 Duration 5 min:sec BON BIJAN [employer] Work Phone: Recovery Stage 4 HR 126 bpm BON S ECOARJUN [employer] Work Phone: Stress Diastolic BP 72 mmHg BON S ECOARJUN [employer] Work Phone: Stress Peak HR 142 bpm BON SECVAZQUEZ S [employer] Work Phone: Stress Percent HR Achieved 93 % BON BIJAN [employer] Work Phone: Stress Rate Pressure Product 05932 bpm*mmHg BON SECFLAKITA [employer] Work Phone: Stress Systolic BP 110 mmHg BON SE COURS [employer] Work Phone: Stress Target HR 153 bpm BON SECO URS [employer] Work Phone: BON BIJAN [employer] Work Phone: No Panel Informationon 10-01 Stress [...] suggest a low risk of cardiac events. [facility] CV [facility] STRESS No Panel Informationon 09-30 Radiology Study observation (narrative) [facility] DEXA BONE DENSITY AXIAL SKTHAI Green 09-19-2023 DEXA BONE DENSITY AXIAL SKELETON EXAMINATION: BONE DENSITOMETRY 09/19/2023 7:18 am TECHNIQUE: A bone density dual x-ray absorptiometry (DXA) scan was performed of the lumbar spine and left hip on a [employer] system. COMPARISON: None. HISTORY: ORDERING SYSTEM PROVIDED [...] risk is performed using the [employer] FRAX calculator based on patient-reported risk factors. [...] Jeet Hudson MD 09/19/[address] [facility] XR ANKLE LEFT (MIN 3 VIEWS)o [...] Bridger Alves MD 09/18/[address] [facility] XR FOOT LEFT (MIN 3 VIEWS)on [...] appreciable change in alignment. Interpreted by: Bridger lAves MD Signed by: Bridger Alves MD 09/18/[address] [facility] XR Foot - left 3 Viewson 1. Oblique, mildly displaced fracture of the medial malleolus without appreciable change in alignment. 2. Nondisplaced transverse fractures through the base of the 2nd-4th metatarsals without appreciable change in alignment. [facility] EXAMINATION: THREE XRAY VIEWS OF [...] reaction appreciated. No new osseous abnormality identified. [facility] Bridger Alves MD - 09/18/2023 [...] 2nd-4th metatarsals without appreciable change in alignment. [facility] XR Foot - left 3 ViewsOrdere d By: Bridger Alves on 09-18-2023 [facility] Work Phone: XR Foot - left 3 Viewson Radiology Study observation (narrative) [facility] CBC with Auto Differentialon 08-21-2023 Basophils (Bld) [#/Vol] 0.12 10*3/uL [facility] Basophils/100 WBC (Bld) 1 % 0 - 2 % [facility] Eosinophils (Bld) [#/Vol] 0.70 10*3/uL High [facility] Eosinophils/100 WBC (Bld) 9 % High 1 - 4 % [facility] Erythrocyte distribution width (RBC) [Ratio] 13.5 % 11.8 - 14.4 % [facility] Hematocrit (Bld) [Volume fraction] 43.2 % 36.3 - 47.1 % [facility] Hemoglobin (Bld) [Mass/Vol] 14.1 g/dL 11.9 - 15.1 g/dL [facility] Immature granulocytes (Bld) [#/Vol] [facility] Immature granulocytes/100 WBC (Bld) 0 % 0 [facility] Interpretation and review of laboratory results Abnormal [facility] Lymphocytes/100 WBC (Bld) 19 % Low 24 - 43 % [facility] Lymphocytes/100 WBC (Bld) 1.53 % [facility] MCH (RBC) [Entitic mass] 30.7 pg 25.2 - 33.5 pg [facility] MCHC (RBC) [Mass/Vol] 32.6 g/dL 28.4 - 34.8 g/ dL [facility] MCV (RBC) [Entitic vol] 93.9 fL 82.6 - 102.9 fL [facility] Monocytes/100 WBC (Bld) 13 % High 3 - 12 % [facility] Monocytes/100 WBC (Bld) 1.11 % [facility] Neutrophils/100 WBC (Bld) 58 % 36 - 65 % [facility] Nucleated RBC/100 WBC (Bld) [Ratio] 0.0 % 0.0 per 100 WBC [facility] Platelet mean volume (Bld) [Entitic vol] 10.0 fL 8.1 - 13.5 fL [facility] Platelets (Bld) [#/Vol] 369 10*3/uL [facility] RBC (Bld) [#/Vol] 4.60 10*6/uL 3.95 - 5.11 m/uL [facility] Segmented neutrophils/100 WBC (Bld) 4.81 % [facility] WBC other (Bld) [#/Vol] 8.3 [facility] CBC with Diffon 08-21-2023 Abs. Basophil 0.12 k/uL Normal 0.00-0.20 [facility] Comment on above: Performed By: #### U JEREMY, UAX #### [facility] [address] [place] [address] [place] [address] [employer] Bilingual: Sravani Gordon MD Abs.Imm.Granulocyte <0.03 Normal 0.00-0.30 [facility] Comment on above: Performed By: #### U JEREMY UAX #### [facility] [address] [place] [address] [place] [address] [employer] Professional Bilingual: Sravani Gordon MD Abs.Neutrophil (Seg) 4.81 k/uL Normal 1.50-8.10 [facility] Comment on above: Performed By: #### U JEREMY, UAX #### [facility] [address] [place] [phone] [employer] Bilingual: Sravani Gordon MD Basophils/100 WBC (Bld) 1 % Normal 0-2 [facility] Comment on above: Performed By: #### U JEREMY, UAX #### [facility] [address] [place] [address] [place] [address] [employer] Professional Bilingual: Sravani Gordon MD Eosinophils (Bld) [#/Vol] 0.70 10*3/uL High 0.00-0.44 [facility] Comment on above: Performed By: #### U MICAO, UAX #### [facility] [address] [place], [facility] [employer] Bilingual: Sravani Gordon MD Eosinophils/100 WBC (Bld) 9 % High 1-4 [facility] Comment on above: Performed By: #### U MICAO, UAX #### [facility] [address] [place], [place] [address] [employer] Bilingual: Sravani Gordon MD Erythrocyte distribution width (RBC) [Ratio] 13.5 % Normal 11.8-14.4 [facility] Comment on above: Performed By: #### U KANDACEO, UAX #### [facility] [address] [place], [facility] [employer] Professional Bilingual: Sravani Gordon MD Hematocrit (Bld) [Volume fraction] 43.2 % Normal 36.3-47.1 [facility] Comment on above: Performed By: #### U MICAO, UAX #### [facility] [address] [place], [facility] [employer] Professional Bilingual: Sravani Gordon MD Hemoglobin (Bld) [Mass/Vol] 14.1 g/dL Normal 11.9-15.1 [facility] Comment on above: Performed By: #### U KANDACEO, UAX #### [facility] [address] [place], [place] [address] [employer] Professional Bilingual: Sravani Gordon MD Immature granulocytes/100 WBC (Bld) 0 % Normal 0 [facility] Comment on above: Performed By: #### U MICAO, UAX #### [facility] [address] [place], [facility] [employer] Professional Bilingual: Sravani Gordon MD Lymphocytes (Bld) [#/Vol] 1.53 10*3/uL Normal 1.10-3.70 [facility] Comment on above: Performed By: #### U MICAO, UAX #### [facility] [address] [place], [place] [phone] [employer] Bilingual: Sravani Gordon MD Lymphocytes/100 WBC (Bld) 19 % Low 24-43 [facility] Comment on above: Performed By: #### U KANDACEO, UAX #### [facility] [address] [place], [facility] Sales Professional Bilingual: Sravani Gordon MD MCH (RBC) [Entitic mass] 30.7 pg Normal 25.2-33.5 [facility] Comment on above: Performed By: #### U JEREMY UAX #### [address] [place], [facility] Sales Professional Bilingual: Sravani Gordon MD MCHC (RBC) [Mass/Vol] 32.6 g/dL Normal 28.4-34.8 [facility] Comment on above: Performed By: #### U JEREMY, UAX #### [address] [place], [facility] Sales Professional Bilingual: Sravani Gordon MD MCV (RBC) [Entitic vol] 93.9 fL Normal 82.6-102.9 [facility] Comment on above: Performed By: #### U JEREMY, UAX #### [address] [place], [facility] Sales Professional Bilingual: Sravani Gordon MD Monocytes (Bld) [#/Vol] 1.11 10*3/uL Normal 0.10-1.20 [facility] Comment on above: Performed By: #### U JEREMY UAX #### [address] [place] [address] Sales Professional Bilingual: Sravani Gordon MD Monocytes/100 WBC (Bld) 13 % High 3-12 [facility] Comment on above: Performed By: #### U JEREMY, UAX #### [facility] [address] [place], [place] [phone] Sales Professional Bilingual: Sravani Gordon MD Neutrophil (Seg) 58 % Normal 36-65 [facility] Comment on above: Performed By: #### U KANDACEO, UAX #### [facility] [address] [place], [place] [phone] Sales Professional Bilingual: Sravani Gordon MD NRBC Automated 0.0 per [address] [facility] Comment on above: Performed By: #### U KANDACEO, UAX #### [facility] [address] [place], [place] [phone] Sales Professional Bilingual: Sravani Gordon MD Platelet mean volume (Bld) [Entitic vol] 10.0 fL Normal 8.1-13.5 [facility] Comment on above: Performed By: #### U JEREMY, UAX #### [address] [place], [place] [phone] Sales Professional Bilingual: Sravani Gordon MD Platelets (Bld) [#/Vol] 369 10*3/uL Normal 138-453 [facility] Comment on above: Performed By: #### U JEREMY, UAX #### [address] [place], [place] [phone] Sales Professional Bilingual: Sravani Gordon MD RBC (Bld) [#/Vol] 4.60 10*6/uL Normal 3.95-5.11 [facility] Comment on above: Performed By: #### U KANDACEO, UAX #### [address] [place], [place] [phone] [employer] Professional Bilingual: Sravani Gordon MD WBC (Bld) [#/Vol] 8.3 10*3/uL Normal 3.5-11.3 [facility] Comment on above: Performed By: #### U KANDACEO, UAX #### [address] [place] [address] Sales Professional Bilingual: Sravani Gordon MD Comp Metabolic Profon 2023 Albumin [Mass/Vol] 4.1 g/dL Normal 3.5-5.2 [facility] Comment on above: Performed By: #### U MICAO, UAX #### [facility] [address] [place], [place] [phone] Sales Professional Bilingual: Sravani Gordon MD Albumin/Glob Ratio 1.5 Normal 1.0-2.5 [facility] Comment on above: Performed By: #### U MICAO, UAX #### [facility] [address] [place] [address] Sales Professional Bilingual: Sravani Gordon MD Alkaline Phos 109 U/L High 35-104 [facility] Comment on above: Performed By: #### U MICAO, UAX #### [facility] [address] [place] [address] Dr. [place], [place] [phone] Sales Professional Bilingual: Sravani Gordon MD ALT [Catalytic activity/Vol] 12 U/L Normal 5-33 [facility] Comment on above: Performed By: #### U MICAO, UAX #### [facility] [address] [place] [address] Dr. [place], [place] [phone] Sales Professional Bilingual: Sravani Gordon MD Anion gap [Moles/Vol] 13 mmol/L Normal 9-17 [facility] Comment on above: Performed By: #### U MICAO, UAX #### [facility] [address] [place] [address] Dr[place], [place] [phone] Sales Professional Bilingual: Sravani Gordon MD AST [Catalytic activity/Vol] 13 U/L Normal <32 [facility] Comment on above: Performed By: #### U MICAO, UAX #### [facility] [address] [place] [address] Sales Professional Bilingual: Sravani Gordon MD Bilirubin [Mass/Vol] 0.2 mg/dL Low 0.3-1.2 [facility] Comment on above: Performed By: #### U MICAO, UAX #### [facility] [address] [place], [place] [phone] [employer] Professional Bilingual: Sravani Gordon MD BUN/CRE Ratio 17 Normal 9-20 [facility] Comment on above: Performed By: #### U MICAO, UAX #### [facility] [address] [place], [place] [phone] Sales Professional Bilingual: Sravani Gordon MD Calcium [Mass/Vol] 9.2 mg/dL Normal 8.6-10.4 [facility] Comment on above: Performed By: #### U MICAO, UAX #### [facility] [address] [place], [place] [phone] Sales Professional Bilingual: Sravani Gordon MD Chloride [Moles/Vol] 104 mmol/L Normal 98-107 [facility] Comment on above: Performed By: #### U MICAO, UAX #### [facility] [address] [place], [place] [phone] [employer] Professional Bilingual: Sravani Gordon MD CO2 [Moles/Vol] 23 mmol/L Normal 20-31 [facility] Comment on above: Performed By: #### U MICAO, UAX #### [facility] [address] [place], [place] [phone] [employer] Professional Bilingual: Sravani Gordon MD Creatinine [Mass/Vol] 1.0 mg/dL High 0.5-0.9 [facility] Comment on above: Performed By: #### U MICAO, UAX #### [facility] [address] [place], [place] [phone] [employer] Bilingual: Sravani Gordon MD GFR/1.73 sq M.predicted among non-blacks MDRD (S/P/Bld) [Vol rate/Area] 62 mL/min/{1.73_m2} Normal >60 [facility] Comment on above: Result Comment: These [...] affects renal tubular secretion. Performed By: #### U JEREMY UAX #### [facility] [address] [place] [address] [place] [address] [employer] Professional Bilingual: Sravani Gordon MD Glucose [Mass/Vol] 102 mg/dL High 70-99 [facility] Comment on above: Performed By: #### U JEREMY UAX #### [address] [place] [address] [employer] Professional Bilingual: Sravani Gordon MD Potassium [Moles/Vol] 3.8 mmol/L Normal 3.7-5.3 [facility] Comment on above: Performed By: #### U JEREMY UAX #### [address] [place] [address] Sales Professional Bilingual: Sravani Gordon MD Protein [Mass/Vol] 6.9 g/dL Normal 6.4-8.3 [facility] Comment on above: Performed By: #### Roderick LUNA UAX #### [facility] [address] [place] [address] Dr[place], [place] [phone] [employer] Professional Bilingual: Sravani Gordon MD Sodium [Moles/Vol] 140 mmol/L Normal 135-144 [facility] Comment on above: Performed By: #### U JEREMY UAX #### [address] [place] [address] Sales Professional Bilingual: Sravani Gordon MD Urea nitrogen [Mass/Vol] 17 mg/dL Normal 8-23 [facility] Comment on above: Performed By: #### U JEREMY, UAX #### [facility] [address] [place] [address] [place] [address] Sales Professional Bilingual: Sravani Gordon MD [facility] Metabolic Pane [facility] 08-21-2023 Albumin [Mass/Vol] 4.1 g/dL 3.5 - 5.2 g/dL [facility] Albumin/Globulin [Mass ratio] 1.5 {ratio} 1.0 - 2.5 [facility] ALP [Catalytic activity/Vol] 109 U/L High 35 - 104 U/L [facility] ALT [Catalytic activity/Vol] 12 U/L 5 - 33 U/L [facility] Anion gap [Moles/Vol] 13 mmol/L 9 - 17 mmol/L [facility] AST [Catalytic activity/Vol] 13 U/L NINF - 32 U/L [facility] Bilirubin [Mass/Vol] 0.2 mg/dL Low 0.3 - 1.2 mg/dL [facility] Calcium [Mass/Vol] 9.2 mg/dL 8.6 - 10.4 mg/dL [facility] Chloride [Moles/Vol] 104 mmol/L 98 - 107 mmol/L [facility] CO2 [Moles/Vol] 23 mmol/L 20 - 31 mmol/L [facility] Creatinine [Mass/Vol] 1.0 mg/dL High 0.5 - 0.9 mg/d L [facility] Est, Glom Filt Rate 62 - PINF [facility] Comment on above: These results are [...] 102 mg/dL High 70 - 99 mg/dL [facility] Interpretation and review of laboratory results Abnormal [facility] Potassium [Moles/Vol] 3.8 mmol/L 3.7 - 5.3 mmol /L [facility] Protein [Mass/Vol] 6.9 g/dL 6.4 - 8.3 g/dL [facility] Sodium [Moles/Vol] 140 mmol/L 135 - 144 mmol/L [facility] Urea nitrogen [Mass/Vol] 17 mg/dL 8 - 23 mg/dL [facility] Urea nitrogen/Creatinine [Mass ratio] 17 mg/mg 9 - 20 [facility] Magnesiumon 08-21-2023 Magnesium [Mass/Vol] 1.9 mg/dL 1.6 - 2.6 mg/dL [facility] Magnesium [Mass/Vol] 1.9 mg/dL Normal 1.6-2.6 [facility] Comment on above: Performed By: #### C DP #### [facility] [address] [place] [address] Sales Professional Bilingual: Sravani Gordon MD #### MILTON MARTIN #### [facility] [address] [place], [place] [phone] Sales Professional Bilingual: Robi Veliz MD No Panel Informationon 08-20 Mild prominence of the bronchovascular markings within the lungs which may be related to viral pneumonia. Acute fractures involving the proximal 2nd through 4th metatarsals. Possible tiny avulsion fracture involving the medial base of the 1st metatarsal. Acute oblique intra-articular fracture of the lateral malleolus. [facility] CONSOLIDATED EXAMINATION: THREE XRAY VIEWS OF THE [...] Soft tissue swelling of the lateral ankle. [facility] Oziel Mcelroy MD - 08/21/2023 EXAMINATION: THREE XRAY VIEWS [...] oblique intra-articular fracture of the lateral malleolus. [facility] No Panel InformationOrdered By: Oziel Brown on 08-21-2023 [facility] Work Phone: Portable XR Chest AP single viewon 08-21-2023 Radiology Study observation (narrative) [facility] TSH w/reflex to FT4on 2023 Thyroid Stim. Horm. 2.33 uIU/mL Normal 0.30-5.00 [facility] Comment on above: Performed By: #### T SHX #### [facility] [address] [place] [address] Sales Professional Bilingual: Sravani Gordon MD TSH with Reflexon 08-21-2023 TSH Qn 2.33 m[IU]/L [facility] Troponinon 08-21-2023 Troponin I.cardiac High sensitivity method [Mass/Vol] 9 ng/L 0 - 14 ng/L [facility] Comment on above: High Sensitivity Tro ponin values cannot be compared with other Troponin methodologies. [facility] Troponin, High Sens 9 ng/L Normal 0-14 [facility] Comment on above: Result Comment: High Sensitivity Troponin values cannot be compared with other Troponin methodologies. Performed By: #### U JEREMY, UAX #### [facility] [address] [place] [address] Sales Professional Bilingual: Sravani Gordon MD XR ANKLE LEFT (MIN [...] Oziel Brown MD 08/21/[address] [facility] XR Ankle - left 3 Viewson Radiology Study observation (narrative) [facility] THAKK[facility] XR CHEST PORTABLEon 08-21-19 XR CHEST PORTABLE [...] Oziel Brown MD 08/21/[address] [facility] XR FOOT LEFT (MIN 3 VIEWS)on [...] Oziel Brown MD 08/21/[address] [facility] XR Foot - left 3 Viewson Radiology Study observation (narrative) [facility] CBC with Diffon 07-13-2023 Abs. Basophil 0.13 k/uL Normal 0.00-0.20 [facility] Comment on above: Performed By: #### Roderick LUNA UAX #### [facility] [address] [place] [address] [place] [address] [employer] Professional Bilingual: Sravani Gordon MD Abs.Imm.Granulocyte <0.03 Normal 0.00-0.30 [facility] Comment on above: Performed By: #### U JEREMY, UAX #### [facility] [address] [place] [address] Sales Professional Bilingual: Sravani Gordon MD Abs.Neutrophil (Seg) 3.36 k/uL Normal 1.50-8.10 [facility] Comment on above: Performed By: #### Roderick LUNA UAX #### [facility] [address] [place] [address] Sales Professional Bilingual: Sravani Gordon MD Basophils/100 WBC (Bld) 2 % Normal 0-2 [facility] Comment on above: Performed By: #### U KANDACEO, UAX #### [facility] [address] [place] [address] Dr[place], [place] [phone] Sales Professional Bilingual: Sravani Gordon MD Eosinophils (Bld) [#/Vol] 0.62 10*3/uL High 0.00-0.44 [facility] Comment on above: Performed By: #### U KANDACEO, UAX #### [address] [place], [place] 1938[address] [employer] Professional Bilingual: Sravani Gordon MD Eosinophils/100 WBC (Bld) 10 % High 1-4 [facility] Comment on above: Performed By: #### U KANDACEO, UAX #### [address] [place] [address] Sales Professional Bilingual: Sravani Gordon MD Erythrocyte distribution width (RBC) [Ratio] 12.9 % Normal 11.8-14.4 [facility] Comment on above: Performed By: #### U JEREMY, UAX #### [address] [place] [address] Sales Professional Bilingual: Sravani Gordon MD Hematocrit (Bld) [Volume fraction] 37.3 % Normal 36.3-47.1 [facility] Comment on above: Performed By: #### U KANDACEO, UAX #### [address] [place], [place] [phone] Sales Professional Bilingual: Sravani Gordon MD Hemoglobin (Bld) [Mass/Vol] 12.2 g/dL Normal 11.9-15.1 [facility] Comment on above: Performed By: #### U MICAO, UAX #### [address] [place] [address] Sales Professional Bilingual: Sravani Gordon MD Immature granulocytes/100 WBC (Bld) 0 % Normal 0 [facility] Comment on above: Performed By: #### U KANDACEO, UAX #### [facility] [address] [place], [place] [phone] Sales Professional Bilingual: Sravani Gordon MD Lymphocytes (Bld) [#/Vol] 1.61 10*3/uL Normal 1.10-3.70 [facility] Comment on above: Performed By: #### U JEREMY, UAX #### [facility] [address] [place], [place] [address] Sales Professional Bilingual: Sravani Gordon MD Lymphocytes/100 WBC (Bld) 25 % Normal 24-43 [facility] Comment on above: Performed By: #### U JEREMY, UAX #### [facility] [address] [place], [id number] Sales Professional Bilingual: Sravani Gordon MD MCH (RBC) [Entitic mass] 30.3 pg Normal 25.2-33.5 [facility] Comment on above: Performed By: #### U JEREMY, UAX #### [address] [place], [facility] Sales Professional Bilingual: Sravani Gordon MD MCHC (RBC) [Mass/Vol] 32.7 g/dL Normal 28.4-34.8 [facility] Comment on above: Performed By: #### U JEREMY UAX #### [address] [place], [facility] Sales Professional Bilingual: Sravani Gordon MD MCV (RBC) [Entitic vol] 92.8 fL Normal 82.6-102.9 [facility] Comment on above: Performed By: #### U KANDACEO, UAX #### [facility] [address] [place] [address] Sales Professional Bilingual: Sravani Gordon MD Monocytes (Bld) [#/Vol] 0.67 10*3/uL Normal 0.10-1.20 [facility] Comment on above: Performed By: #### U MICAO, UAX #### [facility] [address] [place], [place] [phone] Sales Professional Bilingual: Sravani Gordon MD Monocytes/100 WBC (Bld) 11 % Normal 3-12 [facility] Comment on above: Performed By: #### U MICAO, UAX #### [facility] [address] [place], [place] [address] Sales Professional Bilingual: Sravani Gordon MD Neutrophil (Seg) 52 % Normal 36-65 [facility] Comment on above: Performed By: #### U MICAO, UAX #### [facility] [address] [place], [place] [phone] Sales Professional Bilingual: Sravani Gordon MD NRBC Automated 0.0 per [address] [facility] Comment on above: Performed By: #### U KANDACEO, UAX #### [facility] [address] [place], [id number] Sales Professional Bilingual: Sravani Gordon MD Platelet mean volume (Bld) [Entitic vol] 9.7 fL Normal 8.1-13.5 [facility] Comment on above: Performed By: #### U MICAO, UAX #### [address] [place], [place] [phone] Sales Professional Bilingual: Sravani Gordon MD Platelets (Bld) [#/Vol] 293 10*3/uL Normal 138-453 [facility] Comment on above: Performed By: #### U MICAO, UAX #### [address] [place], [place] [phone] Sales Professional Bilingual: Sravani Gordon MD RBC (Bld) [#/Vol] 4.02 10*6/uL Normal 3.95-5.11 [facility] Comment on above: Performed By: #### U MICAO, UAX #### [facility] [address] [place], [place] [phone] Sales Professional Bilingual: Sravani Gordon MD WBC (Bld) [#/Vol] 6.4 10*3/uL Normal 3.5-11.3 [facility] Comment on above: Performed By: #### U MICAO, UAX #### [facility] [address] [place], [place] [phone] Sales Professional Bilingual: Sravani Gordon MD Comp Metabolic Profon 2023 Albumin [Mass/Vol] 3.8 g/dL Normal 3.5-5.2 [facility] Comment on above: Performed By: #### U MICAO, UAX #### [facility] [address] [place], [place] [phone] Sales Professional Bilingual: Sravani Gordon MD Albumin/Glob Ratio 1.4 Normal 1.0-2.5 [facility] Comment on above: Performed By: #### U MICAO, UAX #### [facility] [address] [place], [place] [phone] Sales Professional Bilingual: Sravani Gordon MD Alkaline Phos 107 U/L High 35-104 [facility] Comment on above: Performed By: #### U MICAO, UAX #### [facility] [address] [place] [address] Dr[place], [place] [phone] Sales Professional Bilingual: Sravani Gordon MD ALT [Catalytic activity/Vol] 13 U/L Normal 5-33 [facility] Comment on above: Performed By: #### U MICAO, UAX #### [facility] [address] [place], [place] [phone] Sales Professional Bilingual: Sravani Gordon MD Anion gap [Moles/Vol] 9 mmol/L Normal 9-17 [facility] Comment on above: Performed By: #### U MICAO, UAX #### [facility] [address] [place], [place] [phone] Sales Professional Bilingual: Sravani Gordon MD AST [Catalytic activity/Vol] 11 U/L Normal <32 [facility] Comment on above: Performed By: #### U KANDACEO, UAX #### [facility] [address] [place], [place] 5483483 Sales Professional Bilingual: Sravani Gordon MD Bilirubin [Mass/Vol] 0.2 mg/dL Low 0.3-1.2 [facility] Comment on above: Performed By: #### U KANDACEO, UAX #### [facility] [address] [place], [place] [phone] Sales Professional Bilingual: Sravani Gordon MD BUN/CRE Ratio 11 Normal 9-20 [facility] Comment on above: Performed By: #### U KANDACEO, UAX #### [facility] [address] [place], [place] 1458883 Sales Professional Bilingual: Sravani Gordon MD Calcium [Mass/Vol] 8.8 mg/dL Normal 8.6-10.4 [facility] Comment on above: Performed By: #### U JEREMY, UAX #### [facility] [address] [place], [place] [phone] Sales Professional Bilingual: Sravani Gordon MD Chloride [Moles/Vol] 109 mmol/L High 98-107 [facility] Comment on above: Performed By: #### U KANDACEO, UAX #### [facility] [address] [place], [place] 1431083 Sales Professional Bilingual: Sravani Gordon MD CO2 [Moles/Vol] 26 mmol/L Normal 20-31 [facility] Comment on above: Performed By: #### U MICAO, UAX #### [facility] [address] [place], [place] [phone] Sales Professional Bilingual: Sravani Gordon MD Creatinine [Mass/Vol] 0.8 mg/dL Normal 0.5-0.9 [facility] Comment on above: Performed By: #### U JEREMY, UAX #### [facility] [address] [place] [address] Sales Professional Bilingual: Sravani Gordon MD GFR/1.73 sq M.predicted among non-blacks MDRD (S/P/Bld) [Vol rate/Area] 81 mL/min/{1.73_m2} Normal >60 [facility] Comment on above: Result Comment: These [...] affects renal tubular secretion. Performed By: #### Roderick LUNA UAX #### [facility] [address] [place] [address] Sales Professional Bilingual: Sravani Gordon MD Glucose [Mass/Vol] 102 mg/dL High 70-99 [facility] Comment on above: Performed By: #### Roderick LUNA UAX #### [facility] [address] [place] [address] Sales Professional Bilingual: Sravani Gordon MD Potassium [Moles/Vol] 4.1 mmol/L Normal 3.7-5.3 [facility] Comment on above: Performed By: #### U JEREMY UAX #### [facility] [address] [place] [address] Sales Professional Bilingual: Sravani Gordon MD Protein [Mass/Vol] 6.5 g/dL Normal 6.4-8.3 [facility] Comment on above: Performed By: #### U JEREMY UAX #### [facility] [address] [place] [address] Sales Professional Bilingual: Sravani Gordon MD Sodium [Moles/Vol] 144 mmol/L Normal 135-144 [facility] Comment on above: Performed By: #### U MICAO, UAX #### [facility] [address] [place] [address] Sales Professional Bilingual: Sravani Gordon MD Urea nitrogen [Mass/Vol] 9 mg/dL Normal 8-23 [facility] Comment on above: Performed By: #### U MICAO, UAX #### [facility] [address] [place], [place] [phone] Sales Professional Bilingual: Sravani Gordon MD Lipid Profileon 07-13-2023 Cholesterol [Mass/Vol] 219 mg/dL High 0-199 [facility] Comment on above: Result Comment: Cholesterol Guidelines: <200 Desirable 200-240 Borderline >240 Undesirable Performed By: #### U MICAO, UAX #### [facility] [address] [place], [place] [phone] Sales Professional Bilingual: Sravani Gordon MD Cholesterol in HDL [Mass/Vol] 46 mg/dL Normal >40 [facility] Comment on above: Result Comment: HDL Guidelines: <40 Undesirable 40-59 Borderline >59 Desirable Performed By: #### U KANDACEO, UAX #### [facility] [address] [place] [address] Sales Professional Bilingual: Sravani Gordon MD Cholesterol in LDL [Mass/Vol] 142 mg/dL High 0-100 [facility] Comment on above: Result Comment: LDL Guidelines: <100 Desirable 100-129 Near to/above Desirable 130-159 Borderline >159 Undesirable Direct (measured) LDL and calculated LDL are not interchangeable tests. Performed By: #### U MICAO, UAX #### [facility] [address] [place] [address] Sales Professional Bilingual: Sravani Gordon MD Cholesterol in VLDL [Mass/Vol] 31 mg/dL Normal [facility] Comment on above: Performed By: #### U MICAO, UAX #### [facility] [address] [place] [address] Sales Professional Bilingual: Sravani Gordon MD Cholesterol.total/Cho lesterol in HDL [Mass ratio] 5.0 {ratio} Normal [facility] Comment on above: Performed By: #### FIDE KIDDX #### [facility] [address] [place] [address] Sales Professional Bilingual: Sravani Gordon MD Triglyceride [Mass/Vol] 155 mg/dL High <150 [facility] Comment on above: Result Comment: Triglyceride Guidelines: <150 Desirable 150-199 Borderline 200-499 High >499 Very high Based on AHA Guidelines for fasting triglyceride, December 2011. Performed By: #### FIDE KIDDX #### [facility] [address] [place] [address] Sales Professional Bilingual: Sravani Gordon MD Thyroid Stim. Horm.on 2023 Thyroid Stim. Horm. 1.30 uIU/mL Normal 0.30-5.00 [facility] Comment on above: Performed By: #### FIDE KIDDX #### [address] [place] [address] Sales Professional Bilingual: Sravani Gordon MD Thyroxine T4on 5 T4 [Mass/Vol] 4.2 ug/dL Low 4.5-11.7 [facility] Comment on above: Performed By: #### FIDE KIDDX #### [facility] [address] [place] [address] [place] [address] Sales Professional Bilingual: Sravani Gordon MD CBC with Diffon 02-27-2023 Abs. Basophil 0.04 k/uL Normal 0.00-0.20 [facility] Comment on above: Performed By: #### C DP #### [address] [place] [address] Sales Professional Bilingual: Sravani Gordon MD #### MILTON MARTIN #### [address] [phone] Sales Professional Bilingual: Robi Veliz MD Abs.Imm.Granulocyte <0.03 Normal 0.00-0.30 [facility] Comment on above: Performed By: #### C DP #### [facility] [address] [place] [address] [place] [phone] ( Sales Professional Bilingual: Sravani Gordon MD #### SREEDHAR MARTINI #### [place] [phone] Sales Professional Bilingual: Robi Veliz MD Abs.Neutrophil (Seg) 4.65 k/uL Normal 1.50-8.10 [facility] Comment on above: Performed By: #### C DP #### [address] [place] [phone] ( Sales Professional Bilingual: Sravani Gordon MD #### MILTON MARTIN #### [place] [address] Sales Professional Bilingual: Robi Veliz MD Basophils/100 WBC (Bld) 1 % Normal 0-2 [facility] Comment on above: Performed By: #### C DP #### [address] [place] [phone] ( Sales Professional Bilingual: Sravani Gordon MD #### VERONICA FERI #### [place] [address] Sales Professional Bilingual: Robi Veliz MD Eosinophils (Bld) [#/Vol] 0.68 10*3/uL High 0.00-0.44 [facility] Comment on above: Performed By: #### C DP #### [facility] [address] [place] [address] [place] [phone] Sales Professional Bilingual: Sravani Gordon MD #### VERONICA FERI #### [address] [phone] Sales Professional Bilingual: Robi Veliz MD Eosinophils/100 WBC (Bld) 10 % High 1-4 [facility] Comment on above: Performed By: #### C DP #### [facility] [address] [place] [address] Sales Professional Bilingual: Sravani Gordon MD #### VERONICA, FERI #### [address] 1937408 Sales Professional Bilingual: Robi Veliz MD Erythrocyte distribution width (RBC) [Ratio] 13.0 % Normal 11.8-14.4 [facility] Comment on above: Performed By: #### C DP #### [facility] [address] [place] [address] Sales Professional Bilingual: Sravani Gordon MD #### VERONICA, FERI #### [address] [phone] Sales Professional Bilingual: Robi Veliz MD Hematocrit (Bld) [Volume fraction] 35.6 % Low 36.3-47.1 [facility] Comment on above: Performed By: #### C DP #### [address] [place] [address] Sales Professional Bilingual: Sravani Gordon MD #### VERONICA, FERI #### [address] [phone] Sales Professional Bilingual: Robi Veliz MD Hemoglobin (Bld) [Mass/Vol] 11.5 g/dL Low 11.9-15.1 [facility] Comment on above: Performed By: #### C DP #### [facility] [address] [place] [address] Sales Professional Bilingual: Sravani Gordon MD #### VERONICA, FERI #### [place] [address] [place], [place] [phone] Sales Professional Bilingual: Robi Veliz MD Immature granulocytes/100 WBC (Bld) 0 % Normal 0 [facility] Comment on above: Performed By: #### C DP #### [facility] [address] [place], [place] [phone] Sales Professional Bilingual: Sravani Gordon MD #### FEDESTINY, FERI #### [address] [phone] Sales Professional Bilingual: Robi Veliz MD Lymphocytes (Bld) [#/Vol] 0.72 10*3/uL Low 1.10-3.70 [facility] Comment on above: Performed By: #### C DP #### [facility] [address] [place], [place] [phone] Sales Professional Bilingual: Sravani Gordon MD #### VERONICA, FERI #### [address] [phone] Sales Professional Bilingual: Robi Veliz MD Lymphocytes/100 WBC (Bld) 11 % Low 24-43 [facility] Comment on above: Performed By: #### C DP #### [facility] [address] [place], [place] [phone] Sales Professional Bilingual: Sravani Gordon MD #### VERONICA, FERI #### [address] [address] Sales Professional Bilingual: Robi Veliz MD MCH (RBC) [Entitic mass] 31.4 pg Normal 25.2-33.5 [facility] Comment on above: Performed By: #### C DP #### [facility] [address] [place], [place] [phone] Sales Professional Bilingual: Sravani Gordon MD #### VERONICA, FERI #### [address] [phone] Sales Professional Bilingual: Robi Veliz MD MCHC (RBC) [Mass/Vol] 32.3 g/dL Normal 28.4-34.8 [facility] Comment on above: Performed By: #### C DP #### [facility] [address] [place], [place] 7856983 Sales Professional Bilingual: Sravani Gordon MD #### VERONICA, SREEDHARI #### [address] [address] Sales Professional Bilingual: Robi Veliz MD MCV (RBC) [Entitic vol] 97.3 fL Normal 82.6-102.9 [facility] Comment on above: Performed By: #### C DP #### [facility] [address] [place], [place] 0348183 Sales Professional Bilingual: Sravani Gordon MD #### VERONICA, SREEDHARI #### [address] [address] Sales Professional Bilingual: Robi Veliz MD Monocytes (Bld) [#/Vol] 0.75 10*3/uL Normal 0.10-1.20 [facility] Comment on above: Performed By: #### C DP #### [facility] [address] [place], [place] [phone] Sales Professional Bilingual: Sravani Gordon MD #### VERONICA, FERI #### [address] [address] Sales Professional Bilingual: Robi Veliz MD Monocytes/100 WBC (Bld) 11 % Normal 3-12 [facility] Comment on above: Performed By: #### C DP #### [facility] [address] [place], [place] [phone] Sales Professional Bilingual: Sravani Gordon MD #### VERONICA, FERI #### [address] [address] Sales Professional Bilingual: Robi Veliz MD Neutrophil (Seg) 67 % High 36-65 [facility] Comment on above: Performed By: #### C DP #### [address] [place], [place] 7509383 Sales Professional Bilingual: Sravani Gordon MD #### VERONICA, FERI #### [address] [phone] Sales Professional Bilingual: Robi Veliz MD NRBC Automated 0.0 per [address] [facility] Comment on above: Performed By: #### C DP #### [facility] [address] [place] [address] [place] [phone] Sales Professional Bilingual: Sravani Gordon MD #### VERONICA, FERI #### [address] [phone] Sales Professional Bilingual: Robi Veliz MD Platelet mean volume (Bld) [Entitic vol] 9.7 fL Normal 8.1-13.5 [facility] Comment on above: Performed By: #### C DP #### [address] [place] [phone] Sales Professional Bilingual: Sravani Gordon MD #### VERONICA, FERI #### [address] [phone] Sales Professional Bilingual: Robi Veliz MD Platelets (Bld) [#/Vol] 177 10*3/uL Normal 138-453 [facility] Comment on above: Performed By: #### C DP #### [facility] [address] [place] [address] [place] [phone] Sales Professional Bilingual: Sravani Gordon MD #### VERONICA, FERI #### [address] [address] Sales Professional Bilingual: Robi Veliz MD RBC (Bld) [#/Vol] 3.66 10*6/uL Low 3.95-5.11 [facility] Comment on above: Performed By: #### C DP #### [address] [place], [place] 3928183 Sales Professional Bilingual: Sravani Gordon MD #### VERONICA, FERI #### [address] [address] Sales Professional Bilingual: Robi Veliz MD WBC (Bld) [#/Vol] 6.9 10*3/uL Normal 3.5-11.3 [facility] Comment on above: Performed By: #### C DP #### [facility] [address] [place] [address] Dr. [place], [place] [phone] Sales Professional Bilingual: Sravani Gordon MD #### VERONICA, FERI #### [address] [address] Sales Professional Bilingual: Robi Veliz MD Comp Metabolic Profon 2022 Albumin [Mass/Vol] 3.5 g/dL Normal 3.5-5.2 [facility] Comment on above: Performed By: #### C DP #### [address] [place], [place] [phone] Sales Professional Bilingual: Sravani Gordon MD #### VERONICA, FERI #### [address] [address] Sales Professional Bilingual: Robi Veliz MD Albumin/Glob Ratio 1.4 Normal 1.0-2.5 [facility] Comment on above: Performed By: #### C DP #### [address] [place], [place] [phone] Sales Professional Bilingual: Sravani Gordon MD #### VERONICA, FERI #### [address] [address] Sales Professional Bilingual: Robi Veliz MD Alkaline Phos 86 U/L Normal 35-104 [facility] Comment on above: Performed By: #### C DP #### [address] [place] [address] Sales Professional Bilingual: Sravani Gordon MD #### VERONICA, FERI #### [facility] [address] [place] [address] Sales Professional Bilingual: Robi Veliz MD ALT [Catalytic activity/Vol] 21 U/L Normal 5-33 [facility] Comment on above: Performed By: #### C DP #### [facility] [address] [place], [place] [phone] Sales Professional Bilingual: Sravani Gordon MD #### VERONICA, FERI #### [place] [address]402 [place] [address] Sales Professional Bilingual: Robi Veliz MD Anion gap [Moles/Vol] 10 mmol/L Normal 9-17 [facility] Comment on above: Performed By: #### C DP #### [facility] [address] [place] [address] [place], [place] [phone] Sales Professional Bilingual: Sravani Gordon MD #### VERONICA, FERI #### [place] [address]402 [place] [address] Sales Professional Bilingual: Robi Veliz MD AST [Catalytic activity/Vol] 16 U/L Normal <32 [facility] Comment on above: Performed By: #### C DP #### [address] [place], [place] 1716183 Sales Professional Bilingual: Sravani Gordon MD #### VERONICA, FERI #### [address] [address] Sales Professional Bilingual: Robi Veliz MD Bilirubin [Mass/Vol] 0.3 mg/dL Normal 0.3-1.2 [facility] Comment on above: Performed By: #### C DP #### [facility] [address] [place] [address] Sales Professional Bilingual: Sravani Gordon MD #### VERONICA, FERI #### [address] [place] [address] Sales Professional Bilingual: Robi Veliz MD BUN/CRE Ratio 13 Normal 9-20 [facility] Comment on above: Performed By: #### C DP #### [facility] [address] [place], [place] [phone] Sales Professional Bilingual: Sravani Gordon MD #### SREEDHAR MARTINI #### [address] [address] Sales Professional Bilingual: Robi Veliz MD Calcium [Mass/Vol] 8.8 mg/dL Normal 8.6-10.4 [facility] Comment on above: Performed By: #### C DP #### [facility] [address] [place], [place] [phone] Sales Professional Bilingual: Sravani Gordon MD #### MILTON MARTIN #### [address] [address] Sales Professional Bilingual: Robi Veliz MD Chloride [Moles/Vol] 110 mmol/L High 98-107 [facility] Comment on above: Performed By: #### C DP #### [facility] [address] [place], [place] [phone] Sales Professional Bilingual: Sravani Gordon MD #### SREEDHAR MARTINI #### [address] [address] Sales Professional Bilingual: Robi Veliz MD CO2 [Moles/Vol] 23 mmol/L Normal 20-31 [facility] Comment on above: Performed By: #### C DP #### [facility] [address] [place] [address] Sales Professional Bilingual: Sravani Gordon MD #### VERONICA, FERI #### [address] [address] Sales Professional Bilingual: Robi Veliz MD Creatinine [Mass/Vol] 0.9 mg/dL Normal 0.5-0.9 [facility] Comment on above: Performed By: #### C DP #### [facility] [address] [place] [address] [place] [address] Sales Professional Bilingual: Sravani Gordon MD #### MILTON MARTIN #### [address] [phone] Sales Professional Bilingual: Robi Veliz MD GFR/1.73 sq M.predicted among non-blacks MDRD (S/P/Bld) [Vol rate/Area] mL/min/{1.73_m2} Normal >60 [facility] Comment on above: Result Comment: These [...] secretion. Performed By: #### C DP #### [address] [place] [address] Sales Professional Bilingual: Sravani Gordon MD #### MILTON MARTIN #### [address] [phone] Sales Professional Bilingual: Robi Veliz MD Glucose [Mass/Vol] 90 mg/dL Normal 70-99 [facility] Comment on above: Performed By: #### C DP #### [facility] [address] [place] [address] [place] [address] Sales Professional Bilingual: Sravani Gordon MD #### MILTON MARTIN #### [address] [address] Sales Professional Bilingual: Robi Veliz MD Potassium [Moles/Vol] 4.3 mmol/L Normal 3.7-5.3 [facility] Comment on above: Performed By: #### C DP #### [facility] [address] [place], [place] [phone] Sales Professional Bilingual: Sravani Gordon MD #### MILTON MARTIN #### [address] [phone] Sales Professional Bilingual: Robi Veliz MD Protein [Mass/Vol] 6.0 g/dL Low 6.4-8.3 [facility] Comment on above: Performed By: #### C DP #### [facility] [address] [place], [place] 7561983 Sales Professional Bilingual: Sravani Gordon MD #### MILTON MARTIN #### [address] [phone] Sales Professional Bilingual: Robi Veliz MD Sodium [Moles/Vol] 143 mmol/L Normal 135-144 [facility] Comment on above: Performed By: #### C DP #### [facility] [address] [place] [address] [place], [place] [phone] Sales Professional Bilingual: Sravani Gordon MD #### MILTON MARTIN #### [address] [address] Sales Professional Bilingual: Robi Veliz MD Urea nitrogen [Mass/Vol] 12 mg/dL Normal 8-23 [facility] Comment on above: Performed By: #### C DP #### [facility] [address] [place] [address] [place], [place] [phone] Sales Professional Bilingual: Sravani Gordon MD #### MILTON MARTIN #### [address] [address] Sales Professional Bilingual: Robi Veliz MD Lipid Profileon 02-27-2023 Cholesterol [Mass/Vol] 197 mg/dL Normal <200 [facility] Comment on above: Result Comment: Cholesterol Guidelines: <200 Desirable 200-240 Borderline >240 Undesirable Performed By: #### C DP #### [facility] [address] [place] [address] Sales Professional Bilingual: Sravani Gordon MD #### MILTON MARTIN #### [facility] [address] [place] [address] Sales Professional Bilingual: Robi Veliz MD Cholesterol in HDL [Mass/Vol] 49 mg/dL Normal >40 [facility] Comment on above: Result Comment: HDL Guidelines: <40 Undesirable 40-59 Borderline >59 Desirable Performed By: #### C DP #### [facility] [address] [place] [address] [address] [place], [place] [phone] Sales Professional Bilingual: Sravani Gordon MD #### VERONICA, SREEDHARI #### [address] [address] Sales Professional Bilingual: Robi Veliz MD Cholesterol in LDL [Mass/Vol] 121 mg/dL Normal 0-130 [facility] Comment on above: Result Comment: LDL Guidelines: <100 Desirable 100-129 Near to/above Desirable 130-159 Borderline >159 Undesirable Direct (measured) LDL and calculated LDL are not interchangeable tests. Performed By: #### C DP #### [address] [place] [address] Sales Professional Bilingual: Sravani Gordon MD #### MILTON MARTIN #### [address] [place] [address] Sales Professional Bilingual: Robi Veliz MD Cholesterol.total/Cho lesterol in HDL [Mass ratio] 4.0 {ratio} Normal <5 [facility] Comment on above: Performed By: #### C DP #### [address] [place], [place] [phone] Sales Professional Bilingual: Sravani Gordon MD #### VERONICA, FERI #### [address] [place] [address] Sales Professional Bilingual: Robi Veliz MD Triglyceride [Mass/Vol] 135 mg/dL Normal <150 [facility] Comment on above: Result Comment: Triglyceride Guidelines: <150 Desirable 150-199 Borderline 200-499 High >499 Very high Based on AHA Guidelines for fasting triglyceride, December 2011. Performed By: #### C DP #### [facility] [address] [place], [place] [phone] Sales Professional Bilingual: Sravani Gordon MD #### MILTON MARTIN #### [facility] [address] [place], [place] [phone] Sales Professional Bilingual: Robi Veliz MD Basic Metabolic Profon 02-26 Anion gap [Moles/Vol] 7 mmol/L Low 9-17 [facility] Comment on above: Performed By: #### U JEREMY, UAX #### [facility] [address] [place], [place] [address]83 Sales Professional Bilingual: Sravani Gordon MD BUN/CRE Ratio 21 High 9-20 [facility] Comment on above: Performed By: #### U JEREMY UAX #### [facility] [address] [place], [place] 1513783 Sales Professional Bilingual: Sravani Gordon MD Calcium [Mass/Vol] 8.0 mg/dL Low 8.6-10.4 [facility] Comment on above: Performed By: #### U JEREMY, UAX #### [facility] [address] [place], [place] [phone] Sales Professional Bilingual: Sravani Gordon MD Chloride [Moles/Vol] 109 mmol/L High 98-107 [facility] Comment on above: Performed By: #### U KANDACEO, UAX #### [facility] [address] [place] [address] Sales Professional Bilingual: Sravani Gordon MD CO2 [Moles/Vol] 23 mmol/L Normal 20-31 [facility] Comment on above: Performed By: #### U MICAO, UAX #### [facility] [address] [place] [address] Sales Professional Bilingual: Sravani Gordon MD Creatinine [Mass/Vol] 0.9 mg/dL Normal 0.5-0.9 [facility] Comment on above: Performed By: #### U KANDACEO, UAX #### [facility] [address] [place] [address] Sales Professional Bilingual: Sravani Gordon MD GFR/1.73 sq M.predicted among non-blacks MDRD (S/P/Bld) [Vol rate/Area] mL/min/{1.73_m2} Normal >60 [facility] Comment on above: Result Comment: These [...] affects renal tubular secretion. Performed By: #### U JEREMY, UAX #### [facility] [address] [place] [address] Sales Professional Bilingual: Sravani Gordon MD Glucose [Mass/Vol] 110 mg/dL High 70-99 [facility] Comment on above: Performed By: #### U JEREMY UAX #### [facility] [address] [place] [address] Sales Professional Bilingual: Sravani Gordon MD Potassium [Moles/Vol] 4.6 mmol/L Normal 3.7-5.3 [facility] Comment on above: Performed By: #### U KANDACEO, UAX #### [facility] [address] [place] [address] Sales Professional Bilingual: Sravani Gordon MD Sodium [Moles/Vol] 139 mmol/L Normal 135-144 [facility] Comment on above: Performed By: #### U MICAO, UAX #### [facility] [address] [place], [place] [phone] Sales Professional Bilingual: Sravani Gordon MD Urea nitrogen [Mass/Vol] 19 mg/dL Normal 8-23 [facility] Comment on above: Performed By: #### U MICAO, UAX #### [facility] [address] [place], [facility] Sales Professional Bilingual: Sravani Gordon MD CBC with Diffon 02-26-2023 Abs. Basophil 0.00 k/uL Normal 0.0-0.2 [facility] Comment on above: Performed By: #### U MICAO, UAX #### [address] [place], [facility] Sales Professional Bilingual: Sravani Gordon MD Abs.Imm.Granulocyte 0.00 k/uL Normal 0.00-0.30 [facility] Comment on above: Performed By: #### U MICAO, UAX #### [address] [place], [facility] Sales Professional Bilingual: Sravani Gordon MD Abs.Neutrophil (Seg) 7.47 k/uL Normal 1.50-8.10 [facility] Comment on above: Performed By: #### U MICAO, UAX #### [address] [place], [facility] Sales Professional Bilingual: Sravani Gordon MD Basophils/100 WBC (Bld) 0 % Normal 0-2 [facility] Comment on above: Performed By: #### U MICAO, UAX #### [address] [place], [place] 8573583 Sales Professional Bilingual: Sravani Gordon MD Eosinophils (Bld) [#/Vol] 0.34 10*3/uL Normal 0.00-0.44 [facility] Comment on above: Performed By: #### U MICAO, UAX #### [facility] [address] [place], [place] 1924783 Sales Professional Bilingual: Sravani Gordon MD Eosinophils/100 WBC (Bld) 4 % Normal 1-4 [facility] Comment on above: Performed By: #### U MICAO, UAX #### [facility] [address] [place], [place] 1032283 Sales Professional Bilingual: Sravani Gordon MD Immature granulocytes/100 WBC (Bld) 0 % Normal 0 [facility] Comment on above: Performed By: #### U MICAO, UAX #### [facility] [address] [place], [place] [phone] Sales Professional Bilingual: Sravani Gordon MD Lymphocytes (Bld) [#/Vol] 0.26 10*3/uL Low 1.10-3.70 [facility] Comment on above: Performed By: #### U MICAO, UAX #### [facility] [address] [place], [facility] Sales Professional Bilingual: Sravani Gordon MD Lymphocytes/100 WBC (Bld) 3 % Low 24-43 [facility] Comment on above: Performed By: #### U MICAO, UAX #### [facility] [address] [place], [place] 1938583 Sales Professional Bilingual: Sravani Gordon MD Monocytes (Bld) [#/Vol] 0.43 10*3/uL Normal 0.10-1.20 [facility] Comment on above: Performed By: #### U MICAO, UAX #### [facility] [address] [place], [place] [phone] Sales Professional Bilingual: Sravani Gordon MD Monocytes/100 WBC (Bld) 5 % Normal 3-12 [facility] Comment on above: Performed By: #### U MICAO, UAX #### [facility] [address] [place], [place] [phone] Sales Professional Bilingual: Sravani Gordon MD Morphology Wicho (Bld) [Interp] Platelet scan shows Normal Platelets Normal [facility] Comment on above: Result Comment: DOHL E BODIES PRESENT Performed By: #### U JEREMY, UAX #### [facility] [address] [place] [address] Dr. [place], [place] 2242883 Sales Professional Bilingual: Sravani Gordon MD Neutrophil (Seg) 88 % High 36-65 [facility] Comment on above: Performed By: #### U JEREMY, UAX #### [address] [place], [place] [phone] Sales Professional Bilingual: Sravani Gordon MD Erythrocyte distribution width (RBC) [Ratio] 13.2 % Normal 11.8-14.4 [facility] Comment on above: Performed By: #### U JEREMY, UAX #### [address] [place], [place] 1423383 Sales Professional Bilingual: Sravani Gordon MD Hematocrit (Bld) [Volume fraction] 31.9 % Low 36.3-47.1 [facility] Comment on above: Performed By: #### U JEREMY UAX #### [address] [place], [place] 2567883 Sales Professional Bilingual: Sravani Gordon MD Hemoglobin (Bld) [Mass/Vol] 10.3 g/dL Low 11.9-15.1 [facility] Comment on above: Performed By: #### U JEREMY, UAX #### [address] [place], [place] 3770483 Sales Professional Bilingual: Sravani Gordon MD MCH (RBC) [Entitic mass] 31.7 pg Normal 25.2-33.5 [facility] Comment on above: Performed By: #### U MICAO, UAX #### [address] [place], [place] [phone] Sales Professional Bilingual: Sravani Gordon MD MCHC (RBC) [Mass/Vol] 32.3 g/dL Normal 28.4-34.8 [facility] Comment on above: Performed By: #### U JEREMY UAX #### [address] [place], [place] 5919083 Sales Professional Bilingual: Sravani Gordon MD MCV (RBC) [Entitic vol] 98.2 fL Normal 82.6-102.9 [facility] Comment on above: Performed By: #### U JEREMY, UAX #### [address] [place], [place] 1507883 Sales Professional Bilingual: Sravani Gordon MD NRBC Automated 0.0 per [address] [facility] Comment on above: Performed By: #### Roderick LUNA, UAX #### [address] [place], [place] [phone] Sales Professional Bilingual: Sravani Gordon MD Platelet mean volume (Bld) [Entitic vol] 10.1 fL Normal 8.1-13.5 [facility] Comment on above: Performed By: #### Roderick LUNA UAX #### [address] [place], [place] [phone] Sales Professional Bilingual: Sravani Gordon MD Platelets (Bld) [#/Vol] 149 10*3/uL Normal 138-453 [facility] Comment on above: Performed By: #### U JEREMY UAX #### [address] [place], [place] 1007483 Sales Professional Bilingual: Sravani Gordon MD RBC (Bld) [#/Vol] 3.25 10*6/uL Low 3.95-5.11 [facility] Comment on above: Performed By: #### U JEREMY, UAX #### [address] [place], [place] 3187083 Sales Professional Bilingual: Sravani Gordon MD WBC (Bld) [#/Vol] 8.5 10*3/uL Normal 3.5-11.3 [facility] Comment on above: Performed By: #### U ANDRE LUNA #### [facility] [address] [place] [address] Sales Professional Bilingual: Sravani Gordon MD CT SHOULDER LEFT WO [...] Oziel Reed MD 02/26/[address] [facility] Troponinon 02-26-2023 Troponin, High Sens 9 ng/L Normal 0-14 [facility] Comment on above: Result Comment: High Sensitivity Troponin values cannot be compared with other Troponin methodologies. Performed By: #### U ANDRE LUNA #### [facility] [address] [place] [address] Sales Professional Bilingual: Sravani Gordon MD CBC with Diffon 02-25-2023 Abs. Basophil 0.00 k/uL Normal 0.0-0.2 [facility] Comment on above: Performed By: #### U JEREMY UAX #### [address] [place], [place] 1627783 Sales Professional Bilingual: Sravani Gordon MD Abs.Imm.Granulocyte 0.00 k/uL Normal 0.00-0.30 [facility] Comment on above: Performed By: #### U JEREMY UAX #### [address] [place], [place] 3391683 Sales Professional Bilingual: Sravani Gordon MD Abs.Neutrophil (Seg) 15.07 k/uL High 1.50-8.10 [facility] Comment on above: Performed By: #### Roderick LUNA UAX #### [address] [place], [place] [phone] Sales Professional Bilingual: Sravani Gordon MD Basophils/100 WBC (Bld) 0 % Normal 0-2 [facility] Comment on above: Performed By: #### Roderick LUNA UAX #### [address] [place], [place] 1157083 Sales Professional Bilingual: Sravani Gordon MD Eosinophils (Bld) [#/Vol] 0.32 10*3/uL Normal 0.00-0.44 [facility] Comment on above: Performed By: #### Roderick LUNA UAX #### [address] [place], [place] 4524883 Sales Professional Bilingual: Sravani Gordon MD Eosinophils/100 WBC (Bld) 2 % Normal 1-4 [facility] Comment on above: Performed By: #### U JEREMY UAX #### [address] [place] [address] Sales Professional Bilingual: Sravani Gordon MD Immature granulocytes/100 WBC (Bld) 0 % Normal 0 [facility] Comment on above: Performed By: #### U JEREMY UAX #### [facility] [address] [place], [place] [phone] Sales Professional Bilingual: Sravani Gordon MD Lymphocytes (Bld) [#/Vol] 0.16 10*3/uL Low 1.10-3.70 [facility] Comment on above: Performed By: #### U MICAO, UAX #### [facility] [address] [place], [place] 7104483 Sales Professional Bilingual: Sravani Gordon MD Lymphocytes/100 WBC (Bld) 1 % Low 24-43 [facility] Comment on above: Performed By: #### U MICAO, UAX #### [address] [place], [place] 5324283 Sales Professional Bilingual: Sravani Gordon MD Monocytes (Bld) [#/Vol] 0.65 10*3/uL Normal 0.10-1.20 [facility] Comment on above: Performed By: #### U MICAO, UAX #### [address] [place], [place] 1978683 Sales Professional Bilingual: Sravani Gordon MD Monocytes/100 WBC (Bld) 4 % Normal 3-12 [facility] Comment on above: Performed By: #### U MICAO, UAX #### [address] [place], [place] 9045483 Sales Professional Bilingual: Sravani Gordon MD Morphology Wicho (Bld) [Interp] Platelet clumps present, count appears adequate. Normal [facility] Comment on above: Performed By: #### U MICAO, UAX #### [facility] [address] [place], [place] 1371383 Sales Professional Bilingual: Sravani Gordon MD Neutrophil (Seg) 93 % High 36-65 [facility] Comment on above: Performed By: #### U MICAO, UAX #### [facility] [address] [place] [phone] Sales Professional Bilingual: Sravani Gordon MD Erythrocyte distribution width (RBC) [Ratio] 13.2 % Normal 11.8-14.4 [facility] Comment on above: Performed By: #### U MICAO, UAX #### [address] [place], [place] 2989083 Sales Professional Bilingual: Sravani Gordon MD Hematocrit (Bld) [Volume fraction] 37.3 % Normal 36.3-47.1 [facility] Comment on above: Performed By: #### U MICAO, UAX #### [address] [place] 8819883 Sales Professional Bilingual: Sravani Gordon MD Hemoglobin (Bld) [Mass/Vol] 12.2 g/dL Normal 11.9-15.1 [facility] Comment on above: Performed By: #### U KANDACEO, UAX #### [address] [place], [place] [phone] Sales Professional Bilingual: Sravani Gordon MD MCH (RBC) [Entitic mass] 31.6 pg Normal 25.2-33.5 [facility] Comment on above: Performed By: #### U MICAO, UAX #### [address] [place], [place] 6592083 Sales Professional Bilingual: Sravani Gordon MD MCHC (RBC) [Mass/Vol] 32.7 g/dL Normal 28.4-34.8 [facility] Comment on above: Performed By: #### U MICAO, UAX #### [address] [place] [address] Sales Professional Bilingual: Sravani Gordon MD MCV (RBC) [Entitic vol] 96.6 fL Normal 82.6-102.9 [facility] Comment on above: Performed By: #### U KANDACEO, UAX #### [address] [place] [address] Sales Professional Bilingual: Sravani Gordon MD NRBC Automated 0.0 per [address] [facility] Comment on above: Performed By: #### U JEREMY, UAX #### [facility] [address] [place], [facility] Sales Professional Bilingual: Sravani Gordon MD Platelet mean volume (Bld) [Entitic vol] 9.7 fL Normal 8.1-13.5 [facility] Comment on above: Performed By: #### U KANDACEO, UAX #### [facility] [address] [place], [facility] Sales Professional Bilingual: Sravani Gordon MD Platelets (Bld) [#/Vol] 201 10*3/uL Normal 138-453 [facility] Comment on above: Performed By: #### U JEREMY, UAX #### [facility] [address] [place], [facility] Sales Professional Bilingual: Sravani Gordon MD RBC (Bld) [#/Vol] 3.86 10*6/uL Low 3.95-5.11 [facility] Comment on above: Performed By: #### U KANDACEO, UAX #### [address] [place], [facility] Sales Professional Bilingual: Sravani Gordon MD WBC (Bld) [#/Vol] 16.2 10*3/uL High 3.5-11.3 [facility] Comment on above: Performed By: #### U KANDACEO, UAX #### [facility] [address] [place], [facility] Sales Professional Bilingual: Sravani Gordon MD Comp Metabolic Profon 2022 Albumin [Mass/Vol] 3.6 g/dL Normal 3.5-5.2 [facility] Comment on above: Performed By: #### U KANDACEO, UAX #### [facility] [address] [place], [place] 6954083 Sales Professional Bilingual: Sravani Gordon MD Albumin/Glob Ratio 1.6 Normal 1.0-2.5 [facility] Comment on above: Performed By: #### U MICAO, UAX #### [facility] [address] [place], [place] 1355183 Sales Professional Bilingual: Sravani Gordon MD Alkaline Phos 78 U/L Normal 35-104 [facility] Comment on above: Performed By: #### U MICAO, UAX #### [facility] [address] [place], [place] 2560783 Sales Professional Bilingual: Sravani Gordon MD ALT [Catalytic activity/Vol] 44 U/L High 5-33 [facility] Comment on above: Performed By: #### U MICAO, UAX #### [facility] [address] [place], [place] 4860483 Sales Professional Bilingual: Sravani Gordon MD Anion gap [Moles/Vol] 13 mmol/L Normal 9-17 [facility] Comment on above: Performed By: #### U KANDACEO, UAX #### [facility] [address] [place], [place] 3698983 Sales Professional Bilingual: Sravani Gordon MD AST [Catalytic activity/Vol] 59 U/L High <32 [facility] Comment on above: Performed By: #### U MICAO, UAX #### [facility] [address] [place], [place] 6323583 Sales Professional Bilingual: Sravani Gordon MD Bilirubin [Mass/Vol] 0.2 mg/dL Low 0.3-1.2 [facility] Comment on above: Performed By: #### U MICAO, UAX #### [facility] [address] [place], [place] 9251183 Sales Professional Bilingual: Sravani Gordon MD BUN/CRE Ratio 16 Normal 9-20 [facility] Comment on above: Performed By: #### U MICAO, UAX #### [facility] [address] [place], [place] 7423783 Sales Professional Bilingual: Sravani Gordon MD Calcium [Mass/Vol] 8.6 mg/dL Normal 8.6-10.4 [facility] Comment on above: Performed By: #### U MICAO, UAX #### [facility] [address] [place] 5377583 Sales Professional Bilingual: Sravani Gordon MD Chloride [Moles/Vol] 98 mmol/L Normal 98-107 [facility] Comment on above: Performed By: #### U MICAO, UAX #### [facility] [address] [place], [place] 2576083 Sales Professional Bilingual: Sravani Gordon MD CO2 [Moles/Vol] 24 mmol/L Normal 20-31 [facility] Comment on above: Performed By: #### U KANDACEO, UAX #### [facility] [address] [place], [place] 7382283 Sales Professional Bilingual: Sravani Gordon MD Creatinine [Mass/Vol] 1.5 mg/dL High 0.5-0.9 [facility] Comment on above: Performed By: #### U KANDACEO, UAX #### [facility] [address] [place], [place] 3770983 Sales Professional Bilingual: Sravani Gordon MD GFR/1.73 sq M.predicted among non-blacks MDRD (S/P/Bld) [Vol rate/Area] 38 mL/min/{1.73_m2} Low >60 [facility] Comment on above: Result Comment: These [...] affects renal tubular secretion. Performed By: #### U KANDACEO, UAX #### [facility] [address] [place] [address] Sales Professional Bilingual: Sravani Gordon MD Glucose [Mass/Vol] 124 mg/dL High 70-99 [facility] Comment on above: Performed By: #### U KANDACEO, UAX #### [facility] [address] [place], [place] 3601683 Sales Professional Bilingual: Sravani Gordon MD Potassium [Moles/Vol] 4.8 mmol/L Normal 3.7-5.3 [facility] Comment on above: Performed By: #### U JEREMY, UAX #### [facility] [address] [place] [address] Dr[place], [place] 5345883 Sales Professional Bilingual: Sravani Gordon MD Protein [Mass/Vol] 5.8 g/dL Low 6.4-8.3 [facility] Comment on above: Performed By: #### U KANDACEO, UAX #### [facility] [address] [place] [address] Sales Professional Bilingual: Sravani Gordon MD Sodium [Moles/Vol] 135 mmol/L Normal 135-144 [facility] Comment on above: Performed By: #### U KANDACEO, UAX #### [facility] [address] [place], [place] 3596883 Sales Professional Bilingual: Sravani Gordon MD Urea nitrogen [Mass/Vol] 24 mg/dL High 8-23 [facility] Comment on above: Performed By: #### U KANDACEO, UAX #### [facility] [address] [place] [address] Sales Professional Bilingual: Sravani Gordon MD Troponinon 02-25-2023 Troponin, High Sens 8 ng/L Normal 0-14 [facility] Comment on above: Result Comment: High Sensitivity Troponin values cannot be compared with other Troponin methodologies. Performed By: #### U JEREMY UAX #### [facility] [address] [place], [place] [phone] Sales Professional Bilingual: Sravani Gordon MD UA w/Reflex Cultureon 2022 Bilirubin, SemiQt,Ur Negative Normal NEG [facility] Comment on above: Performed By: #### U MICAO, UAX #### [facility] [address] [place] [address] [place], [place] [phone] Sales Professional Bilingual: Sravani Gordon MD Blood, Urine Negative Normal NEG [facility] Comment on above: Performed By: #### U MICAO, UAX #### [address] [place], [place] 6777483 Sales Professional Bilingual: Sravani Gordon MD Clarity (U) Clear Normal CLEAR [facility] Comment on above: Performed By: #### U MICAO, UAX #### [facility] [address] [place] [address] Dr[place], [place] [phone] Sales Professional Bilingual: Sravani Gordon MD Color (U) Yellow Normal YEL [facility] Comment on above: Performed By: #### U MICAO, UAX #### [address] [place] [address] Sales Professional Bilingual: Sravani Gordon MD Glucose Ql (U) Negative Normal NEG [facility] Comment on above: Performed By: #### U MICAO, UAX #### [facility] [address] [place] [address] Dr[place], [place] [phone] Sales Professional Bilingual: Sravani Gordon MD Ketones Ql (U) Negative Normal NEG [facility] Comment on above: Performed By: #### U MICAO, UAX #### [address] [place], [place] 6523783 Sales Professional Bilingual: Sravani Gordon MD Leukocyte esterase Test strip Ql (U) Negative Normal NEG [facility] Comment on above: Performed By: #### U MICAO, UAX #### [facility] [address] [place] [address] Dr[place], [place] 1370783 Sales Professional Bilingual: Sravani Gordon MD Nitrite,Ur Negative Normal NEG [facility] Comment on above: Performed By: #### U MICAO, UAX #### [facility] [address] [place] [address] Dr[place], [place] [phone] Sales Professional Bilingual: Sravani Gordon MD PH,Ur 6.0 Normal 5.0-9.0 [facility] Comment on above: Performed By: #### U MICAO, UAX #### [address] [place] [address] Sales Professional Bilingual: Sravani Gordon MD Protein Ql (U) Negative Normal NEG [facility] Comment on above: Performed By: #### U MICAO, UAX #### [facility] [address] [place] [address] [place], [place] [phone] Sales Professional Bilingual: Sravani Gordon MD Spec. [place],Ur <1.005 Low 1.010-1.020 [facility] Comment on above: Performed By: #### U MICAO, UAX #### [address] [place], [place] [phone] Sales Professional Bilingual: Sravani Gordon MD Urobilinogen,Ur Normal Normal 0.0-1.0 [facility] Comment on above: Performed By: #### U MICAO, UAX #### [address] [place], [place] [id number] Sales Professional Bilingual: Sravani Gordon MD Urinalysis,Microon 3 Amorphous sediment LM Ql (Urine sed) 1+ Abnormal NONE [facility] Comment on above: Performed By: #### U MICAO, UAX #### [address] [place], [place] [id number] Sales Professional Bilingual: Sravani Gordon MD Bacteria 1+ Abnormal NONE [facility] Comment on above: Performed By: #### U MICAO, UAX #### [facility] [address] [place], [place] [id number] Sales Professional Bilingual: Sravani Gordon MD Epithelial cells LM Ql (Urine sed) 0 TO 2 Normal 0-25 [facility] Comment on above: Performed By: #### U MICAO, UAX #### [facility] [address] [place], [place] [id number] Sales Professional Bilingual: Sravani Gordon MD Urine RBC's 0 TO 2 Normal 0-2 [facility] Comment on above: Performed By: #### U MICAO, UAX #### [facility] [address] [place], [place] [id number] Sales Professional Bilingual: Sravani Gordon MD Urine WBC's 0 TO 2 Normal 0-5 [facility] Comment on above: Performed By: #### U MICAO, UAX #### [facility] [address] [place], [place] [id number] Sales Professional Bilingual: Sravani Gordon MD XR CHEST (2 VW)on [...] Sravani Cohen MD 02/25/[address] [facility] XR SHOULDER LEFT (MIN 2 VIEW [...] Sravani Cohen MD 02/25/[address] [facility] CBC with Auto Differentialon 10-06-2022 Basophils (Bld) [#/Vol] 0.09 10*3/uL [facility] Basophils/100 WBC (Bld) 2 % 0 - 2 % [facility] Eosinophils (Bld) [#/Vol] 0.45 10*3/uL High [facility] Eosinophils/100 WBC (Bld) 9 % High 1 - 4 % [facility] Erythrocyte distribution width (RBC) [Ratio] 12.8 % 11.8 - 14.4 % [facility] Hematocrit (Bld) [Volume fraction] 41.2 % 36.3 - 47.1 % [facility] Hemoglobin (Bld) [Mass/Vol] 13.4 g/dL 11.9 - 15.1 g/dL [facility] Immature granulocytes (Bld) [#/Vol] [facility] Immature granulocytes/100 WBC (Bld) 0 % 0 [facility] Interpretation and review of laboratory results Abnormal [facility] Lymphocytes/100 WBC (Bld) 24 % 24 - 43 % [facility] Lymphocytes/100 WBC (Bld) 1.22 % [facility] MCH (RBC) [Entitic mass] 31.8 pg 25.2 - 33.5 pg [facility] MCHC (RBC) [Mass/Vol] 32.5 g/dL 28.4 - 34.8 g/ dL [facility] MCV (RBC) [Entitic vol] 97.9 fL 82.6 - 102.9 fL [facility] Monocytes/100 WBC (Bld) 12 % 3 - 12 % [facility] Monocytes/100 WBC (Bld) 0.62 % [facility] Neutrophils/100 WBC (Bld) 53 % 36 - 65 % [facility] Nucleated RBC/100 WBC (Bld) [Ratio] 0.0 % 0.0 per 100 WBC [facility] Platelet mean volume (Bld) [Entitic vol] 9.8 fL 8.1 - 13.5 fL [facility] Platelets (Bld) [#/Vol] 278 10*3/uL [facility] RBC (Bld) [#/Vol] 4.21 10*6/uL 3.95 - 5.11 m/uL [facility] Segmented neutrophils/100 WBC (Bld) 2.68 % [facility] WBC other (Bld) [#/Vol] 5.1 [facility] Ferritinon 10-06-2022 Ferritin [Mass/Vol] 41 ng/mL 13 - 150 ng/mL B ON [facility] [employer] Iron and TIBCon 10-06-2022 Iron [Mass/Vol] 102 ug/dL 37 - 145 ug/dL [facility] [address] [employer] Iron binding capacity [Mass/Vol] 318 ug/dL 250 - 450 ug/dL [facility] Iron saturation [Mass fraction] 32 % 20 - 55 % [facility] UIBC 216 ug/dL 112 - 347 ug/dL [facility] [employer] No Panel Informationon 10-06 [facility] EKG 12 LeadOrdered By: Monique Gibson hmnito on 05-10-2022 Atrial Rate 90 BPM [facility] [employer] Work Phone: P [place] 68 degrees [facility] [employer] Work Phone: P-R Interval 142 ms [facility] [employer] Work Phone: Q-T Interval 326 ms [facility] [employer] Work Phone: QRS Duration 70 ms [facility] [employer] Work Phone: QTc Calculation (Bazett) 398 ms [facility] [employer] Work Phone: R [place] -11 degrees [facility] [employer] Work Phone: T [place] 46 degrees [facility] [employer] Work Phone: Ventricular Rate 90 BPM [facility] [address] [employer] Work Phone: [employer] Phone: EKG 12 Leadon 05-10-2022 Normal sinus rhythm Nonspecific ST and T wave abnormality Abnormal ECG No previous ECGs available Confirmed by Monique Paz MD ([id number]) on 05/10/2022 9:38:39 PM [facility] RADIOLOGY Monique Paz MD - 05/10/2022 Normal sinus rhythm Nonspecific ST and T wave abnormality Abnormal ECG No previous ECGs available Confirmed by Monique Paz MD ([id number]) on 05/10/2022 9:38:39 PM [employer] Phone: US LIVERon 05-10-2022 Unremarkable right upper quadrant ultrasound. [facility] EXAMINATION: RIGHT UPPER QUADRANT ULTRASOUND 05/10/2022 10:08 [...] No evidence of right upper quadrant ascites. [facility] Keron Suazo DO - 05/10/2022 [...] ascites. IMPRESSION: Unremarkable right upper quadrant ultrasound. [employer] Phone: Radiology Study observation (narrative) [facility] Work Phone: US LIVEROrdered By: Keron thompson on 05-10-2022 [facility] [employer] Work Phone: Rapid influenza A/B antigens on 05-02-2022 FLUAV Ag Ql (Unsp spec) Negative NEGATIVE [facility] Comment on above: for Influenza A Anti gen FLUBV Ag Ql (Unsp spec) Negative NEGATIVE [facility] Comment on above: for Influenza B Anti gen. [facility] CBC with Auto Differentialon 04-28-2022 Absolute Eos # 0.56 High [place] [facility] Absolute Immature Granulocyte [facility] Absolute Lymph # 0.64 Low [facility] U[facility] Absolute Warrick # 0.63 [facility] Basophils (Bld) [#/Vol] 0.04 10*3/uL [facility] Basophils/100 WBC (Bld) 1 % 0 - 2 % [facility] Eosinophils/100 WBC (Bld) 9 % High 1 - 4 % [facility] Hematocrit (Bld) [Volume fraction] 40.9 % 36.3 - 47.1 % [facility] Hemoglobin (Bld) [Mass/Vol] 13.4 g/dL 11.9 - 15.1 g/dL [facility] Immature granulocytes/100 WBC (Bld) 0 % 0 [facility] Interpretation and review of laboratory results Abnormal [facility] Lymphocytes/100 WBC (Bld) 10 % Low 24 - 43 % [facility] MCH (RBC) [Entitic mass] 31.9 pg 25.2 - 33.5 pg [facility] MCHC (RBC) [Mass/Vol] 32.8 g/dL 28.4 - 34.8 g/ dL [facility] MCV (RBC) [Entitic vol] 97.4 fL 82.6 - 102.9 fL [facility] Monocytes/100 WBC (Bld) 10 % 3 - 12 % [facility] NRBC Automated 0.0 0.0 per 100 WBC [facility] Platelet distribution width (Bld) [Ratio] 12.9 % 11.8 - 14.4 % [facility] Platelet mean volume (Bld) [Entitic vol] 10.5 fL 8.1 - 13.5 fL [facility] Platelets (Bld) [#/Vol] 158 10*3/uL [facility] RBC (Bld) [#/Vol] 4.20 10*6/uL 3.95 - 5.11 m/uL [facility] Segmented neutrophils/100 WBC (Bld) 70 % High 36 - 65 % [facility] Segs Absolute 4.41 [facility] WBC (Bld) [#/Vol] 6.3 10*3/uL [facility] Comprehensive Metabolic Pane mauricio 04-28-2022 Albumin [Mass/Vol] 3.8 g/dL 3.5 - 5.2 g/dL [facility] Albumin/Globulin [Mass ratio] 1.1 {ratio} 1.0 - 2.5 [facility] ALP [Catalytic activity/Vol] 178 U/L High 35 - 104 U/L [facility] ALT [Catalytic activity/Vol] 412 U/L High 5 - 33 U/L [facility] Anion gap [Moles/Vol] 14 mmol/L 9 - 17 mmol/L [facility] AST [Catalytic activity/Vol] 106 U/L High NINF - 32 U/L [facility] Bilirubin [Mass/Vol] 0.3 mg/dL 0.3 - 1.2 mg/dL [facility] Calcium [Mass/Vol] 9.6 mg/dL 8.6 - 10.4 mg/dL [facility] Chloride [Moles/Vol] 103 mmol/L 98 - 107 mmol/L [facility] CO2 [Moles/Vol] 24 mmol/L 20 - 31 mmol/L [facility] Creatinine [Mass/Vol] 0.76 mg/dL 0.50 - 0.90 mg /dL [facility] GFR/1.73 sq M.predicted MDRD (S/P/Bld) [Vol rate/Area] - PINF [facility] [employer] Comment on above: These results are not [...] 99 mg/dL [facility] Interpretation and review of laboratory results Abnormal [facility] [employer] Potassium [Moles/Vol] 3.9 mmol/L 3.7 - 5.3 mmol /L [facility] [employer] Protein [Mass/Vol] 7.2 g/dL 6.4 - 8.3 g/dL [facility] [employer] Sodium [Moles/Vol] 141 mmol/L 135 - 144 mmol/L [facility] [employer] Urea nitrogen [Mass/Vol] 15 mg/dL 8 - 23 mg/dL [facility] [employer] Urea nitrogen/Creatinine (Bld) [Mass ratio] 20 9 - 20 [facility]ITAL[facility] FactoryAR Lipid Panelon 04-28-2022 Cholesterol [Mass/Vol] 288 mg/dL High NINF - 200 mg/dL [facility] [employer] Comment on above: Cholesterol Guidelines: <200 Desirable 200-240 Borderline >240 Undesirable Cholesterol in HDL [Mass/Vol] 60 mg/dL 40 - PINF mg/dL [facility] [employer] Comment on above: HDL Guidelines: <40 Undesirable 40-59 Borderline >59 Desirable Cholesterol in LDL [Mass/Vol] 196 mg/dL High 0 - 130 mg/dL [facility] [employer] Comment on above: LDL Guidelines: <100 Desirable 100-129 Near to/above Desirable 130-159 Borderline >159 Undesirable Direct (measured) LDL and calculated LDL are not interchangeable tests. Cholesterol.total/Cho lesterol in HDL [Mass ratio] 4.8 {ratio} NINF - 5 [facility] [employer] Interpretation and review of laboratory results Abnormal [facility] [employer] Triglyceride [Mass/Vol] 160 mg/dL High NINF - 150 mg/dL [employer] [facility] Comment on above: Triglyceride Guidelines: <150 Desirable 150-199 Borderline 200-499 High >499 Very high Based on AHA Guidelines for fasting triglyceride, December 2011. [facility] CBC with Auto Differentialon 12-01-2021 Absolute Eos # 0.31 [place] [facility] Absolute Immature Granulocyte [facility] Absolute Lymph # 1.24 [facility] Absolute Warrick # 0.43 [facility] RS [facility] Basophils (Bld) [#/Vol] 0.07 10*3/uL [facility] Basophils/100 WBC (Bld) 2 % 0 - 2 % [facility] Eosinophils/100 WBC (Bld) 7 % High 1 - 4 % [facility] Hematocrit (Bld) [Volume fraction] 39.7 % 36.3 - 47.1 % [facility] Hemoglobin (Bld) [Mass/Vol] 13.1 g/dL 11.9 - 15.1 g/dL [facility] Immature granulocytes/100 WBC (Bld) 0 % 0 [facility] Interpretation and review of laboratory results Abnormal [facility] Lymphocytes/100 WBC (Bld) 28 % 24 - 43 % [facility] MCH (RBC) [Entitic mass] 32.1 pg 25.2 - 33.5 pg [facility] MCHC (RBC) [Mass/Vol] 33.0 g/dL 28.4 - 34.8 g/ dL [facility] MCV (RBC) [Entitic vol] 97.3 fL 82.6 - 102.9 fL [facility] Monocytes/100 WBC (Bld) 10 % 3 - 12 % [facility] NRBC Automated 0.0 0.0 per 100 WBC [facility] Platelet distribution width (Bld) [Ratio] 12.1 % 11.8 - 14.4 % [facility] Platelet mean volume (Bld) [Entitic vol] 9.9 fL 8.1 - 13.5 fL [facility] Platelets (Bld) [#/Vol] 271 10*3/uL [facility] RBC (Bld) [#/Vol] 4.08 10*6/uL 3.95 - 5.11 m/uL [facility] Segmented neutrophils/100 WBC (Bld) 53 % 36 - 65 % [facility] Segs Absolute 2.41 [facility] WBC (Bld) [#/Vol] 4.5 10*3/uL [facility] Comprehensive Metabolic Pane mauricio 12-01-2021 Albumin [Mass/Vol] 4 g/dL 3.5 - 5.2 g/dL [facility] Albumin/Globulin [Mass ratio] 1.8 {ratio} 1 - 2.5 [facility] ALP (Bld) [Catalytic activity/Vol] 83 U/L 35 - 104 U/L [facility] ALT [Catalytic activity/Vol] 15 U/L 5 - 33 U/L [facility] Anion gap [Moles/Vol] 9 mmol/L 9 - 17 mmol/L [facility] AST [Catalytic activity/Vol] 15 U/L NINF - 32 U/L [facility] Bilirubin [Mass/Vol] 0.2 mg/dL Low 0.3 - 1.2 mg/dL [facility] Calcium [Mass/Vol] 8.8 mg/dL 8.6 - 10.4 mg/dL [facility] Chloride [Moles/Vol] 107 mmol/L 98 - 107 mmol/L [facility] CO2 [Moles/Vol] 27 mmol/L 20 - 31 mmol/L [facility] S [facility] Creatinine [Mass/Vol] 0.64 mg/dL 0.5 - 0.9 mg/d L [facility] Free PSA/Total PSA [Mass fraction] 6.2 g/dL Low 6.4 - 8.3 g/dL [facility] GFR >60 60 - PINF mL/mi n [facility] GFR Non- >60 60 - PINF mL/min [facility] Glucose [Mass/Vol] 100 mg/dL High 70 - 99 mg/dL [facility] Interpretation and review of laboratory results Abnormal [facility] Potassium [Moles/Vol] 3.9 mmol/L 3.7 - 5.3 mmol /L [facility] Sodium [Moles/Vol] 143 mmol/L 135 - 144 mmol/L [facility] Urea nitrogen (BldV) [Mass/Vol] 8 mg/dL 8 - 23 mg/dL [facility] Urea nitrogen/Creatinine (Bld) [Mass ratio] 13 9 - 20 [facility] Laboratory - Chemistry and C hemistry - challengeon 12-01-2021 GFR/1.73 sq M.predicted MDRD (S/P/Bld) [Vol rate/Area] [facility] Comment on above: Average GFR for 60-6 9 years old: 85 mL/min/1.73sq m Chronic Kidney Disease: <60 mL/min/1.73sq m Kidney failure: <15 mL/min/1.73sq m eGFR calculated using average adult body mass. Additional eGFR calculator available at: http://www.Optimus/multiple_crcl_2012.htm Stage 1: Some kidney damage normal GFR Stage 2: Mild kidney damage GFR 60-89 Stage 3: Moderate kidney damage GFR 30-59 Stage 4: Severe kidney damage GFR 15-29 Stage 5: Severe kidney damage GFR <15 ESRD - chronic treatment by dialysis or transplant Lipid Panelon 12-01-2021 Cholesterol [Mass/Vol] 229 mg/dL High NINF - 200 mg/dL [facility] Comment on above: Cholesterol Guidelines: <200 Desirable 200-240 Borderline >240 Undesirable Cholesterol in HDL [Mass/Vol] 42 mg/dL 40 - PINF mg/dL [facility] Comment on above: HDL Guidelines: <40 Undesirable 40-59 Borderline >59 Desirable Cholesterol in LDL [Mass/Vol] 149 mg/dL High 0 - 130 mg/dL [facility] Comment on above: LDL Guidelines: <100 Desirable 100-129 Near to/above Desirable 130-159 Borderline >159 Undesirable Direct (measured) LDL and calculated LDL are not interchangeable tests. Cholesterol.total/Cho lesterol in HDL [Mass ratio] 5.5 {ratio} High NINF - 5 [facility] Interpretation and review of laboratory results Abnormal [facility] Triglyceride [Mass/Vol] 189 mg/dL High NINF - 150 mg/dL [facility] Comment on above: Triglyceride Guidelines: <150 Desirable 150-199 Borderline 200-499 High >499 Very high Based on AHA Guidelines for fasting triglyceride, December 2011. HUMAIRA BIJAN [employer] HEMOGLOBINon 04-13-2021 Hemoglobin (Bld) [Mass/Vol] 14.3 g/dL Normal 12.0-16.0 [facility] Comment on above: Performed By: #### H GB #### [facility] [address] [place], [place] [address] Dr. Silvestre Bender CBC Auto Differentialon 01-24 Absolute Eos # 1.38 High [facility] th Absolute Immature Granulocyte 0.00 [employer] Absolute Lymph # 0.64 Low [facility] alth Absolute Warrick # 0.55 [facility] Basophils (Bld) [#/Vol] 0.00 10*3/uL [facility] Basophils/100 WBC (Bld) 0 % 0 - 2 % [facility] Differential Type NOT REPORTED [facility] [employer] Eosinophils/100 WBC (Bld) 15 % High 1 - 4 % [employer] Hematocrit (Bld) [Volume fraction] 46.5 % 36.3 - 47.1 % [employer] Hemoglobin.gastrointe stinal spec 1 Ql (Stl) 15.2 g/dL High 11.9 - 15.1 g/dL [facility] Immature granulocytes/100 WBC (Bld) 0 % 0 [facility] Interpretation and review of laboratory results Abnormal [facility] [employer] Lymphocytes/100 WBC (Bld) 7 % Low 24 - 43 % [facility] [employer] MCH (RBC) [Entitic mass] 32.2 pg 25.2 - 33.5 pg [facility] [employer] MCHC (RBC) [Mass/Vol] 32.7 g/dL 28.4 - 34.8 g/ dL [facility] MCV (RBC) [Entitic vol] 98.5 fL 82.6 - 102.9 fL [employer] Monocytes/100 WBC (Bld) 6 % 3 - 12 % [employer] Morphology [place] (Bld) [Interp] Normal [facility] [employer] NRBC Automated 0.0 0.0 per 100 WBC [facility] Platelet distribution width (Bld) [Ratio] 12.0 % 11.8 - 14.4 % [employer] Platelet Estimate NOT REPORTED [facility] Platelet mean volume (Bld) [Entitic vol] 10.4 fL 8.1 - 13.5 fL [facility] Platelets (Bld) [#/Vol] 217 10*3/uL [facility] RBC (Bld) [#/Vol] 4.72 10*6/uL 3.95 - 5.11 m/uL [facility] RBC (Bld) [#/Vol] NOT REPORTED [facility] Segmented neutrophils/100 WBC (Bld) 72 % High 36 - 65 % [facility] Segs [facility].63 [facility] [#/Vol] 9.2 10*3/uL [facility] WBC (Bld) [#/Vol] NOT REPORTED [facility] Comprehensive Metabolic Pane mauricio 02-10-2021 Albumin [Mass/Vol] 4.3 g/dL 3.5 - 5.2 g/dL [facility] [place] [facility] Albumin/Globulin [Mass ratio] 1.6 {ratio} [facility] ALP (Bld) [Catalytic activity/Vol] 151 U/L High 35 - 104 U/L [facility] ALT [Catalytic activity/Vol] 45 U/L High 5 - 33 U/L [facility] Anion gap [Moles/Vol] 12 mmol/L 9 - 17 mmol/L [facility] AST [Catalytic activity/Vol] 35 U/L High <32 [facility] Bilirubin [Mass/Vol] 0.34 mg/dL 0.3 - 1.2 mg/dL [facility] Calcium [Mass/Vol] 9.7 mg/dL 8.6 - 10.4 mg/dL [facility] Chloride [Moles/Vol] 105 mmol/L 98 - 107 mmol/L [facility] CO2 [Moles/Vol] 28 mmol/L 20 - 31 mmol/L [facility] Creatinine [Mass/Vol] 0.85 mg/dL 0.50 - 0.90 mg /dL [facility] Free PSA/Total PSA [Mass fraction] 7.0 g/dL 6.4 - 8.3 g/dL [facility] GFR >60 >60 mL/min [facility] GFR Non- >60 >60 mL/min [facility] Glucose [Mass/Vol] 125 mg/dL High 70 - 99 mg/dL [facility] Interpretation and review of laboratory results Abnormal [facility] Potassium [Moles/Vol] 4.2 mmol/L 3.7 - 5.3 mmol /L [facility] Sodium [Moles/Vol] 145 mmol/L High 135 - 144 mmol/L [facility] Urea nitrogen (BldV) [Mass/Vol] 10 mg/dL 8 - 23 mg/dL [facility] Urea nitrogen/Creatinine (Bld) [Mass ratio] 12 [facility] Laboratory - Chemistry and C hemistry - challengeon 02-10-2021 GFR/1.73 sq M.predicted MDRD (S/P/Bld) [Vol rate/Area] [facility] Comment on above: Average GFR for 60-6 9 years old: 85 mL/min/1.73sq m Chronic Kidney Disease: <60 mL/min/1.73sq m Kidney failure: <15 mL/min/1.73sq m eGFR calculated using average adult body mass. Additional eGFR calculator available at: http://www.Optimus/multiple_crcl_2012.htm Stage 1: Some kidney damage normal GFR Stage 2: Mild kidney damage GFR 60-89 Stage 3: Moderate kidney damage GFR 30-59 Stage 4: Severe kidney damage GFR 15-29 Stage 5: Severe kidney damage GFR <15 ESRD - chronic treatment by dialysis or transplant Lipid Panelon 02-10-2021 Cholesterol [Mass/Vol] 182 mg/dL <200 [facility] Comment on above: Cholesterol Guidelines: <200 Desirable 200-240 Borderline >240 Undesirable Cholesterol in HDL [Mass/Vol] 57 mg/dL >40 [facility] Comment on above: HDL Guidelines: <40 Undesirable 40-59 Borderline >59 Desirable Cholesterol in LDL [Mass/Vol] 98 mg/dL 0 - 130 mg/dL [facility] Comment on above: LDL Guidelines: <100 Desirable 100-129 Near to/above Desirable 130-159 Borderline >159 Undesirable Direct (measured) LDL and calculated LDL are not interchangeable tests. Cholesterol in VLDL [Mass/Vol] NOT REPORTED 1 - 30 mg/dL [facility] Cholesterol.total/Cho lesterol in HDL [Mass ratio] 3.2 {ratio} <5 [facility] Triglyceride [Mass/Vol] 133 mg/dL <150 [facility] Comment on above: Triglyceride Guidelines: <150 Desirable 150-199 Borderline 200-499 High >499 Very high Based on AHA Guidelines for fasting triglyceride, December 2011. [facility] Vitamin B12on 02-10-2021 Cobalamin (Vitamin B12) [Mass/Vol] 957 pg/mL 232 - 1245 pg/mL [employer] CBC Auto DifferentialOrdered By: Del Baldwin on 10-11-2020 Absolute Eos # 0.43 [employer] [facility] Work Phone: Absolute Immature Granulocyte <0.03 [employer] Work Phone: Absolute Lymph # 1.50 [employer] alth Work Phone: Absolute Warrick # 0.68 [employer] [facility] Work Phone: Basophils (Bld) [#/Vol] 0.12 10*3/uL [employer] Work Phone: Basophils/100 WBC (Bld) 2 % 0 - 2 % [employer] Phone: Differential Type NOT REPORTED [employer] Phone: Eosinophils/100 WBC (Bld) 6 % High 1 - 4 % [employer] Work Phone: Hematocrit (Bld) [Volume fraction] 42.0 % 36.3 - 47.1 % [employer] Phone: Hemoglobin.gastrointe stinal spec 1 Ql (Stl) 13.5 g/dL 11.9 - 15.1 g/dL [employer] Phone: Immature granulocytes/100 WBC (Bld) 0 % 0 [employer] Work Phone: Interpretation and review of laboratory results Abnormal [employer] Phone: Lymphocytes/100 WBC (Bld) 21 % Low 24 - 43 % [facility] Phone: MCH (RBC) [Entitic mass] 32.1 pg 25.2 - 33.5 pg [facility] ([facility] Phone: MCHC (RBC) [Mass/Vol] 32.1 g/dL 28.4 - 34.8 g/ dL [facility] ([facility] Phone: MCV (RBC) [Entitic vol] 100.0 fL 82.6 - 102.9 fL [facility] ([facility] Phone: Monocytes/100 WBC (Bld) 10 % 3 - 12 % [facility] Work Phone: NRBC Automated 0.0 0.0 per 100 WBC [employer] (Formerly [employer]) Phone: Platelet distribution width (Bld) [Ratio] 13.0 % 11.8 - 14.4 % [facility] ([facility]) Phone: Platelet Estimate NOT REPORTED [facility] ([facility]) Phone: Platelet mean volume (Bld) [Entitic vol] 9.4 fL 8.1 - 13.5 fL [facility] ([facility]) Phone: Platelets (Bld) [#/Vol] 302 10*3/uL [employer] ([facility]) Phone: RBC (Bld) [#/Vol] 4.20 10*6/uL 3.95 - 5.11 m/uL [employer] Work Phone: RBC (Bld) [#/Vol] NOT REPORTED [facility] ([facility]) Phone: Segmented neutrophils/100 WBC (Bld) 61 % 36 - 65 % [employer] ([facility]ly [employer]) Phone: Segs Absolute 4.40 [employer] Work Phone: WBC (Bld) [#/Vol] 7.2 10*3/uL [facility] ([facility]) Phone: WBC (Bld) [#/Vol] NOT REPORTED [facility] ([facility]) Phone: [employer] Work Phone: FerritinOrdered By: Del Raya on 10-11-2020 Ferritin 96 ug/L 13 - 150 ug/L [employer] Work Phone: Iron and TIBCOrdered By: Fran Baldwin on 10-11-2020 Iron [Mass/Vol] 112 ug/dL 37 - 145 ug/dL [employer] Work Phone: Iron Saturation 37 % 20 - 55 % [employer] [facility] Work Phone: TIBC 302 ug/dL 250 - 450 ug/dL [employer] [facility] Work Phone: UIBC 190 ug/dL 112 - 347 ug/dL [facility] Work Phone: No Panel InformationOrdered By: Del Baldwin on 10-11-2020 [employer] Work Phone: CBC Auto DifferentialOrdered By: Linette Diaz on 09-28-2020 Absolute Eos # 0.73 [employer] [facility] Work Phone: Absolute Immature Granulocyte 0.00 [employer] Work Phone: Absolute Lymph # 0.82 [employer] [facility] Work Phone: Absolute Warrick # 0.46 [facility] Work Phone: Basophils (Bld) [#/Vol] 0.09 10*3/uL [employer] Work Phone: Basophils/100 WBC (Bld) 1 % 0 - 2 % [employer] Work Phone: Differential Type NOT REPORTED [employer] Work Phone: Eosinophils/100 WBC (Bld) 8 % High 1 - 4 % [employer] Work Phone: Hematocrit (Bld) [Volume fraction] 45.8 % 36.3 - 47.1 % [employer] Work Phone: Hemoglobin.gastrointe stinal spec 1 Ql (Stl) 14.8 g/dL 11.9 - 15.1 g/dL [employer] Work Phone: Immature granulocytes/100 WBC (Bld) 0 % 0 [employer] Work Phone: Interpretation and review of laboratory results Abnormal [facility]) Phone: Lymphocytes/100 WBC (Bld) 9 % Low 24 - 43 % [employer] ([facility] [employer]) Phone: MCH (RBC) [Entitic mass] 31.8 pg 25.2 - 33.5 pg [employer] ([facility]) Phone: MCHC (RBC) [Mass/Vol] 32.3 g/dL 28.4 - 34.8 g/ dL [employer] ([facility] [employer]) Phone: MCV (RBC) [Entitic vol] 98.5 fL 82.6 - 102.9 fL [employer] ([facility] [employer]) Phone: Monocytes/100 WBC (Bld) 5 % 3 - 12 % [employer] ([facility]) Phone: Morphology Wicho (Bld) [Interp] Normal [facility] ([facility]) Phone: NRBC Automated 0.0 0.0 per 100 WBC [employer] ([facility] [employer]) Phone: Platelet distribution width (Bld) [Ratio] 12.6 % 11.8 - 14.4 % [employer] [facility] [employer]) Phone: Platelet Estimate NOT REPORTED [employer] ([facility] [employer]) Phone: Platelet mean volume (Bld) [Entitic vol] 9.6 fL 8.1 - 13.5 fL [employer] ([facility] [employer]) Phone: Platelets (Bld) [#/Vol] 205 10*3/uL [employer] ([facility] [employer]) Phone: RBC (Bld) [#/Vol] 4.65 10*6/uL 3.95 - 5.11 m/uL [employer] ([facility] [employer]) Phone: RBC (Bld) [#/Vol] NOT REPORTED [facility] ([facility]) Phone: Segmented neutrophils/100 WBC (Bld) 77 % High 36 - 65 % [employer] Work Phone: Segs Absolute 7.00 [employer] Work Phone: WBC (Bld) [#/Vol] 9.1 10*3/uL [facility] Work Phone: WBC (Bld) [#/Vol] NOT REPORTED [facility] Phone: [facility] Work Phone: Comprehensive Metabolic Pane lOrdered By: Linette Diaz on 09-28-2020 Albumin [Mass/Vol] 4 g/dL 3.5 - 5.2 g/dL [facility] Work Phone: Albumin/Globulin [Mass ratio] 1.3 {ratio} [facility] Phone: ALP (Bld) [Catalytic activity/Vol] 158 U/L High 35 - 104 U/L [facility] Phone: ALT [Catalytic activity/Vol] 53 U/L High 5 - 33 U/L [facility] Phone: Anion gap [Moles/Vol] 9 mmol/L 9 - 17 mmol/L [facility] ([facility]) Phone: AST [Catalytic activity/Vol] 29 U/L <32 [facility] Phone: Bilirubin [Mass/Vol] 0.28 mg/dL Low 0.3 - 1.2 mg/dL [facility] Phone: Calcium [Mass/Vol] 9.5 mg/dL 8.6 - 10.4 mg/dL [facility] ([facility]) Phone: Chloride [Moles/Vol] 102 mmol/L 98 - 107 mmol/L [facility] Phone: CO2 [Moles/Vol] 28 mmol/L 20 - 31 mmol/L [facility] Phone: Creatinine [Mass/Vol] 0.76 mg/dL 0.50 - 0.90 mg /dL [facility] Phone: Free PSA/Total PSA [Mass fraction] 7.1 g/dL 6.4 - 8.3 g/dL [facility] Phone: GFR >60 >60 mL/min [employer] Phone: GFR Non- >60 >60 mL/min [facility] Phone: Glucose [Mass/Vol] 121 mg/dL High 70 - 99 mg/dL [facility] [employer] Phone: Interpretation and review of laboratory results Abnormal [facility] Phone: Potassium [Moles/Vol] 4.4 mmol/L 3.7 - 5.3 mmol /L [facility] Phone: Sodium [Moles/Vol] 139 mmol/L 135 - 144 mmol/L [facility] Phone: Urea nitrogen (BldV) [Mass/Vol] 10 mg/dL 8 - 23 mg/dL [facility] Phone: Urea nitrogen/Creatinine (Bld) [Mass ratio] 13 [facility] Phone: [facility] [employer]) Phone: Laboratory - Chemistry and C hemistry - challengeOrdered By: Linette Diaz on 09-28-2020 GFR/1.73 sq M.predicted MDRD (S/P/Bld) [Vol rate/Area] [facility] Phone: Comment on above: Average GFR for 60-6 9 years old: 85 mL/min/1.73sq m Chronic Kidney Disease: <60 mL/min/1.73sq m Kidney failure: <15 mL/min/1.73sq m eGFR calculated using average adult body mass. Additional eGFR calculator available at: http://www.[employer]ovo[employer].Farmivore/multiple_crcl_2012.htm Stage 1: Some kidney damage normal GFR Stage 2: Mild kidney damage GFR 60-89 Stage 3: Moderate kidney damage GFR 30-59 Stage 4: Severe kidney damage GFR 15-29 Stage 5: Severe kidney damage GFR <15 ESRD - chronic treatment by dialysis or transplant Lipid PanelOrdered By: Linette Diaz on 09-28-2020 Cholesterol [Mass/Vol] 154 mg/dL <200 [facility] ([facility]) Phone: Comment on above: Cholesterol Guidelines: <200 Desirable 200-240 Borderline >240 Undesirable Cholesterol in HDL [Mass/Vol] 48 mg/dL >40 [facility] ([facility]) Phone: Comment on above: HDL Guidelines: <40 Undesirable 40-59 Borderline >59 Desirable Cholesterol in LDL [Mass/Vol] 84 mg/dL 0 - 130 mg/dL [facility] ([facility]) Phone: Comment on above: LDL Guidelines: <100 Desirable 100-129 Near to/above Desirable 130-159 Borderline >159 Undesirable Direct (measured) LDL and calculated LDL are not interchangeable tests. Cholesterol in VLDL [Mass/Vol] NOT REPORTED 1 - 30 mg/dL [facility] ([facility]) Phone: Cholesterol.total/Cho lesterol in HDL [Mass ratio] 3.2 {ratio} <5 [facility] ([facility]) Phone: Triglyceride [Mass/Vol] 110 mg/dL <150 [facility] ([facility]) Phone: Comment on above: Triglyceride Guidelines: <150 Desirable 150-199 Borderline 200-499 High >499 Very high Based on AHA Guidelines for fasting triglyceride, December 2011. [facility] ([facility] [employer]) Phone: XR CHEST (2 VW)Ordered By: Noah Diaz on 09-28-2020 No acute cardiopulmonary findings [facility] ([facility]) Phone: EXAMINATION: TWO XRAY VIEWS OF THE CHEST 09/28/2020 8:31 am COMPARISON: None available HISTORY: ORDERING SYSTEM PROVIDED HISTORY: Dyspnea, unspecified type FINDINGS: Normal cardiopericardial silhouette Mild biapical capping There are no significant pleural, parenchymal, mediastinal or osseous findings [facility] ([facility]) Phone: Edgar, Mhpn Incoming Radiant Results From [employer] - 09/28/2020 8:41 AM EDT EXAMINATION: TWO XRAY VIEWS OF THE CHEST 09/28/2020 8:31 am COMPARISON: None available HISTORY: ORDERING SYSTEM PROVIDED HISTORY: Dyspnea, unspecified type FINDINGS: Normal cardiopericardial silhouette Mild biapical capping There are no significant pleural, parenchymal, mediastinal or osseous findings IMPRESSION: No acute cardiopulmonary findings [facility] Work Phone: [facility] Work Phone: Ferritinon 08-13-2019 Ferritin [Mass/Vol] 130 ug/L 13 - 150 ug/L [place] Iron and TIBCon 08-13-2019 Iron [Mass/Vol] 87 ug/dL 37 - 145 ug/dL [place] Iron Saturation 30 % 20 - 55 % [place] TIBC 292 ug/dL 250 - 450 ug/dL [place] UIBC 205 ug/dL 112 - 347 ug/dL [place] Vitamin B12 & Folateon 08-12 Cobalamin (Vitamin B12) [Mass/Vol] 928 pg/mL 232 - 1245 pg/mL [place] Folate 11.2 ng/mL >4.8 [place] CBC Auto Differentialon 10-0 Basophils (Bld) [#/Vol] 0.07 10*3/uL [place] Basophils/100 WBC (Bld) 1 % 0 - 2 % [place] Differential Type NOT REPORTED [place] Eosinophils (Bld) [#/Vol] 0.56 10*3/uL [place] Eosinophils/100 WBC (Bld) 12 % High 1 - 4 % [place] Erythrocyte distribution width (RBC) [Ratio] 12.8 % 11.8 - 14.4 % [place] Hematocrit (Bld) [Volume fraction] 42.6 % 36.3 - 47.1 % [place] Hemoglobin (Bld) [Mass/Vol] 13.5 g/dL 11.9 - 15.1 g/dL [place] Immature granulocytes (Bld) [#/Vol] 0 % 0 [place] Immature granulocytes (Bld) [#/Vol] 10*3/uL [place] Interpretation and review of laboratory results Abnormal [place] Lymphocytes (Bld) [#/Vol] 1.10 10*3/uL [place] Lymphocytes/100 WBC (Bld) 23 % Low 24 - 43 % [place] MCH (RBC) [Entitic mass] 30.8 pg 25.2 - 33.5 pg [place] MCHC (RBC) [Mass/Vol] 31.7 g/dL 28.4 - 34.8 g/ dL [place] MCV (RBC) [Entitic vol] 97.3 fL 82.6 - 102.9 fL [place] Monocytes (Bld) [#/Vol] 0.48 10*3/uL [place] Monocytes/100 WBC (Bld) 10 % 3 - 12 % [place] Platelet mean volume (Bld) [Entitic vol] 9.4 fL 8.1 - 13.5 fL [place] Platelets (Bld) [#/Vol] 233 10*3/uL [place] Platelets (Bld) [#/Vol] NOT REPORTED [place] RBC (Bld) [#/Vol] 4.38 10*6/uL 3.95 - 5.11 m/uL [place] RBC morphology finding Nom (Bld) NOT REPORTED [place] Segmented neutrophils/100 WBC (Bld) 54 % 36 - 65 % [place] Segs Absolute 2.68 [place] WBC (Bld) [#/Vol] 4.9 10*3/uL [place] WBC (Bld) [#/Vol] 0.0 10*3/uL 0.0 per 100 WBC M [place] WBC Morphology NOT REPORTED [place] Comprehensive Metabolic Pane mauricio 12-26-2018 Albumin [Mass/Vol] 4.2 g/dL 3.5 - 5.2 g/dL [place] Albumin/Globulin [Mass ratio] 1.4 {ratio} [place] ALP [Catalytic activity/Vol] 112 U/L High 35 - 104 U/L [place] ALT [Catalytic activity/Vol] 39 U/L High 5 - 33 U/L [place] Anion gap [Moles/Vol] 13 mmol/L 9 - 17 mmol/L [place] AST [Catalytic activity/Vol] 25 U/L <32 [place] Bilirubin Ql (U) 0.26 mg/dL Low 0.3 - 1.2 mg/dL [place], [place] Bun/Cre Ratio 19 [place] Calcium [Mass/Vol] 9.9 mg/dL 8.6 - 10.4 mg/dL [place] Chloride [Moles/Vol] 103 mmol/L 98 - 107 mmol/L [place] CO2 [Moles/Vol] 26 mmol/L 20 - 31 mmol/L [place] Creatinine [Mass/Vol] 0.69 mg/dL 0.5 - 0.9 mg/d L [place] GFR >60 >60 mL/min [place] GFR Non- >60 >60 mL/min [place] Glucose [Mass/Vol] 111 mg/dL High 70 - 99 mg/dL [place] Interpretation and review of laboratory results Abnormal [place] Potassium [Moles/Vol] 4.8 mmol/L 3.7 - 5.3 mmol /L [place] Protein [Mass/Vol] 7.1 g/dL 6.4 - 8.3 g/dL [place] Sodium [Moles/Vol] 142 mmol/L 135 - 144 mmol/L [place] Urea nitrogen [Mass/Vol] 13 mg/dL 8 - 23 mg/dL [place] Hemoglobin A1Con 12-26-2018 Glucose [Mass/Vol] 123 mg/dL [place] Comment on above: The ADA and AACC rec ommend providing the estimated average glucose result to permit better patient understanding of their HBA1c result. HbA1c (Bld) [Mass fraction] 5.9 % 4.8 - 5.9 % [place] Lipid Panelon 12-26-2018 Cholesterol [Mass/Vol] 159 mg/dL <200 [place] Comment on above: Cholesterol Guidelines: <200 Desirable 200-240 Borderline >240 Undesirable Cholesterol in HDL [Mass/Vol] 51 mg/dL >40 [place] Comment on above: HDL Guidelines: <40 Undesirable 40-59 Borderline >59 Desirable Cholesterol in LDL [Mass/Vol] 87 mg/dL 0 - 130 mg/dL [place] Comment on above: LDL Guidelines: <100 Desirable 100-129 Near to/above Desirable 130-159 Borderline >159 Undesirable Direct (measured) LDL and calculated LDL are not interchangeable tests. Cholesterol in VLDL [Mass/Vol] NOT REPORTED 1 - 30 mg/dL [place] Cholesterol.total/Cho lesterol in HDL [Mass ratio] 3.1 {ratio} <5 [place] Triglyceride [Mass/Vol] 105 mg/dL <150 [place] Comment on above: Triglyceride Guidelines: <150 Desirable 150-199 Borderline 200-499 High >499 Very high Based on AHA Guidelines for fasting triglyceride, December 2011. Metabolic Panelon 12-26-2018 GFR/1.73 sq M predicted among non-blacks MDRD (S/P/Bld) [Vol rate/Area] [place] Comment on above: Stage 1: Some [...] body mass. Additional eGFR calculator available at: http://www.Optimus/multiple_crcl_2012.htm CBC Auto Differentialon 10-26 Basophils (Bld) [#/Vol] 0.07 10*3/uL [place] Basophils/100 WBC (Bld) 1 % 0 - 2 % [place] Differential Type NOT REPORTED [place] Eosinophils (Bld) [#/Vol] 0.45 10*3/uL [place] Eosinophils/100 WBC (Bld) 9 % High 1 - 4 % [place] Erythrocyte distribution width (RBC) [Ratio] 19.5 % High 11.8 - 14.4 % [place] Hematocrit (Bld) [Volume fraction] 44.6 % 36.3 - 47.1 % [place] Hemoglobin (Bld) [Mass/Vol] 13.7 g/dL 11.9 - 15.1 g/dL [place] Immature granulocytes (Bld) [#/Vol] 0 % 0 [place] Immature granulocytes (Bld) [#/Vol] 10*3/uL [place] Interpretation and review of laboratory results Abnormal [place] Lymphocytes (Bld) [#/Vol] 1.14 10*3/uL [place] Lymphocytes/100 WBC (Bld) 22 % Low 24 - 43 % [place] MCH (RBC) [Entitic mass] 29.5 pg 25.2 - 33.5 pg [place] MCHC (RBC) [Mass/Vol] 30.7 g/dL 28.4 - 34.8 g/ dL [place] MCV (RBC) [Entitic vol] 95.9 fL 82.6 - 102.9 fL [place] Monocytes (Bld) [#/Vol] 0.46 10*3/uL [place] Monocytes/100 WBC (Bld) 9 % 3 - 12 % [place] Platelet mean volume (Bld) [Entitic vol] 9.1 fL 8.1 - 13.5 fL [place] Platelets (Bld) [#/Vol] NOT REPORTED [place] Platelets (Bld) [#/Vol] 235 10*3/uL [place] RBC (Bld) [#/Vol] 4.65 10*6/uL 3.95 - 5.11 m/uL [place] RBC morphology finding Nom (Bld) NOT REPORTED [place] Segmented neutrophils/100 WBC (Bld) 59 % 36 - 65 % [place] Segs Absolute 3.18 [place] WBC (Bld) [#/Vol] 0.0 10*3/uL 0.0 per 100 WBC [place] WBC (Bld) [#/Vol] 5.3 10*3/uL [place] WBC Morphology NOT REPORTED [place] Ferritinon 11-22-2018 Ferritin [Mass/Vol] 224 ug/L High 13 - 150 ug/L [place] Interpretation and review of laboratory results Abnormal [place] Iron and TIBCon 11-22-2018 Iron [Mass/Vol] 122 ug/dL 37 - 145 ug/dL [place] Iron Saturation 36 % 20 - 55 % [place] TIBC 337 ug/dL 250 - 450 ug/dL [place] UIBC 215 ug/dL 112 - 347 ug/dL [place] Vitamin B12 & Folateon 11-22 Cobalamin (Vitamin B12) [Mass/Vol] 782 pg/mL 232 - 1245 pg/mL [place] Folate 10.5 ng/mL >4.8 [place] Vital Signs Date Time Vital Sign Value Performing Clinician Facility 12-17-2023 10:38-0400 Body height 157.48 cm [facility] 12-17-2023 10:38-0400 Body mass index (BMI) [Ratio] 21.5 kg/m2 [facility] 12-17-2023 10:38-0400 Body weight 53.52 kg [facility] 12-17-2023 10:38-0400 Diastolic blood pressure 86 mm[Hg] [facility] 12-17-2023 10:38-0400 Heart rate 99 /min [facility] 12-17-2023 10:38-0400 Systolic blood pressure 138 mm[Hg] [facility] 12-14-2023 14:04-0400 Body temperature 98.2 [degF] [facility] 02 [facility] 12-14-2023 14:04-0400 Diastolic blood pressure 68 mm[Hg] Mth 02 [facility] 12-14-2023 14:04-0400 Heart rate 109 /min [facility] [employer] 12-14-2023 14:04-0400 Respiratory rate 16 /min [facility] 12-14-2023 14:04-0400 Systolic blood pressure 127 mm[Hg] Mth 02 [facility] [employer] 12-12-2023 10:08-0400 SaO2% (BldA) [Mass fraction] 97 % Andre Colin MD Work Phone: [facility] 12-12-2023 06:49-0400 Body temperature 96.49 [degF] Andre Colin MD Work Phone: [facility] [employer] [facility] 12-12-2023 06:49-0400 Diastolic blood pressure 72 mm[Hg] Andre Colin MD Work Phone: [facility] [employer] [facility] 12-12-2023 06:49-0400 Heart rate 95 /min Andre Colin MD Work Phone: [facility] [employer] [facility] 12-12-2023 06:49-0400 Respiratory rate 16 /min Andre Colin MD Work Phone: [facility] [employer] [facility] 12-12-2023 06:49-0400 Systolic blood pressure 149 mm[Hg] Andre Colin MD Work Phone: [facility] 12-12-2023 03:02-0400 Body mass index (BMI) [Ratio] 21.57 kg/m2 Andre Colin MD Work Phone: [facility] [employer] [facility] 12-12-2023 03:02-0400 Body weight 53.5 kg Andre Colin MD Work Phone: [facility] 12-10-2023 12:49-0400 Body height 157.5 cm Andre Colin MD Work Phone: [facility] [employer] [facility] 11-30-2023 10:26-0400 Body height 157.48 cm [facility] 11-30-2023 10:26-0400 Body mass index (BMI) [Ratio] 21.7 kg/m2 [facility] 11-30-2023 10:26-0400 Body weight 53.97 kg [facility] 11-30-2023 10:26-0400 Diastolic blood pressure 69 mm[Hg] [facility] 11-30-2023 10:26-0400 Heart rate 105 /min [facility] 11-30-2023 10:26-0400 Systolic blood pressure 109 mm[Hg] [facility] 09-05-2023 10:24-0400 Body height 157.48 cm [facility] 09-05-2023 10:24-0400 Body mass index (BMI) [Ratio] 22.3 kg/m2 [facility] 09-05-2023 10:24-0400 Body weight 55.33 kg [facility] 09-05-2023 10:24-0400 Diastolic blood pressure 77 mm[Hg] [facility] 09-05-2023 10:24-0400 Heart rate 112 /min [facility] 09-05-2023 10:24-0400 Systolic blood pressure 118 mm[Hg] [facility] 08-21-2023 17:26-0400 Heart rate 92 /min Russ Swade DO Work Phone: [facility] [facility] 08-21-2023 17:26-0400 Respiratory rate 18 /min Russ Swade DO Work Phone: [employer] 08-21-2023 17:26-0400 SaO2% (BldA) [Mass fraction] 94 % Russ Swade DO Work Phone: [employer] 08-21-2023 17:11-0400 Diastolic blood pressure 70 mm[Hg] Russ Swade DO Work Phone: [employer] 08-21-2023 17:11-0400 Systolic blood pressure 112 mm[Hg] Russ Swade DO Work Phone: [employer] 08-21-2023 15:34-0400 Body height 157.5 cm Russ Swade DO Work Phone: [employer] 08-21-2023 15:34-0400 Body mass index (BMI) [Ratio] 22.86 kg/m2 Russ Swade DO Work Phone: [employer] 08-21-2023 15:34-0400 Body temperature 98.6 [degF] Russ Dorantesade DO Work Phone: [employer] 08-21-2023 15:34-0400 Body weight 56.7 kg Russ Swade DO Work Phone: [employer]s Encounters Encounter Date Encounter Type Care Provider Facility Start: 12-17-2023 End: 12-17-2023 ambulatory [facility] Start: 12-17-2023 End: 12-17-2023 ambulatory [facility] Work Phone: Start: 12-17-2023 End: 12-17-2023 Patient encounter procedure [facility] Work Phone: Start: 12-16-2023 End: 12-16-2023 ambulatory [facility]ICK [facility] Start: 12-15-2023 End: 12-15-2023 ambulatory [facility] Start: 12-14-2023 End: 12-14-2023 ambulatory [facility] Start: 12-14-2023 End: 12-14-2023 Subsequent hospital visit by physician [facility] Op Treatment Rm 02 [facility] ([facility]) Comment on above: Salmonella bacteremi a (Primary Dx); Salmonella food poisoning Start: 12-13-2023 End: 12-13-2023 ambulatory [facility]ICK [facility] Start: 12-09-2023 End: 12-12-2023 Evaluation and management of inpatient Andre Colin MD Work Phone[facility] Comment on above: Septicemia (HCC) (Pr imary Dx); TABITHA (acute kidney injury) (HCC); Diarrhea, unspecified type; Dehydration; Salmonella food poisoning; Salmonella bacteremia Start: 11-30-2023 End: 11-30-2023 ambulatory [facility] Work Phone: Start: 11-30-2023 End: 11-30-2023 Patient encounter procedure [facility] Work Phone: Start: 10-09-2023 End: 10-11-2023 ambulatory [facility]IN [facility] Start: 10-09-2023 End: 10-11-2023 Subsequent hospital visit by physician Charley [facility] Comment on above: Iron deficiency anem ia secondary to inadequate dietary iron intake Fracture Start: 10-02-2023 End: 10-04-2023 Subsequent hospital visit by physician Charley Nuclear [facility] [employer] [place] [facility] Comment on above: Arrived Start: 10-02-2023 End: 10-04-2023 ambulatory [facility] Hard[facility] Start: 10-01-2023 End: 10-03-2023 ambulatory [facility] Start: 10-01-2023 End: 10-03-2023 Subsequent hospital visit by physician Charley Stress Lab 1 [facility] Comment on above: Lightheadedness; Dizziness; Palpitations; SOB (shortness of breath); Abnormal EKG; Former smoker; Family history of premature CAD Start: 09-25-2023 End: 09-27-2023 ambulatory RICK AMIN Me[facility] Start: 09-25-2023 End: 09-27-2023 Subsequent hospital visit by physician Charley [employer] [facility] [employer] [place] [facility] Comment on above: Lightheadedness; Dizziness; Palpitations; SOB (shortness of breath); Abnormal EKG; Former smoker; Family history of premature CAD Start: 09-19-2023 End: 09-21-2023 ambulatory RICK AMIN Meaghany [facility] Start: 09-17-2023 End: 09-19-2023 Subsequent hospital visit by physician Charley Xr Dr Room 2 [facility] Comment on above: Fractures Start: 09-17-2023 End: 09-19-2023 [facility] Start: 09-05-2023 End: 09-05-2023 ambulatory [facility] Work Phone: Start: 09-05-2023 End: 09-05-2023 Patient encounter procedure [facility] Work Phone: Start: 08-21-2023 End: 08-21-2023 Emergency department patient visit Russ Manning DO Work Phone: [facility] ED Comment on above: Fall, initial encoun ter (Primary Dx); Closed fracture of left ankle, initial encounter; Dehydration; Lightheadedness; Closed fracture of metatarsal bone of left foot, physeal involvement unspecified, unspecified metatarsal, initial encounter Start: 07-13-2023 End: 07-13-2023 [facility] Start: 02-27-2023 End: 02-27-2023 ambulatory LINETTE DIAZ [facility] Start: 02-25-2023 ambulatory LINETTE Tran [facility] Start: 10-06-2022 End: 10-06-2022 Subsequent hospital visit by physician Linette Diaz DO Work Phone: [facility] Comment on above: Iron deficiency anem ia secondary to inadequate dietary iron intake; Microcytic anemia Start: 05-10-2022 End: 05-12-2022 Subsequent hospital visit by physician Charley [employer] [facility] EKG Comment on above: Tachycardia, unspeci fied Abnormal results of liver function studies Start: 05-02-2022 End: 05-02-2022 Subsequent hospital visit by physician Linette iDaz DO Work Phone: [facility] Start: 04-28-2022 End: 04-28-2022 Subsequent hospital visit by physician Linette Diaz DO Work Phone: [facility] Start: 12-01-2021 End: 12-01-2021 Subsequent hospital visit by physician Linette Diaz DO Work Phone: [facility] Start: 04-13-2021 End: 04-14-2021 ambulatory [facility] Facility:H1 Start: 02-10-2021 End: 02-10-2021 Subsequent hospital visit by physician Linette Diaz DO Work Phone: [facility] Start: 10-11-2020 End: 10-11-2020 Subsequent hospital visit by physician Linette Diaz DO Work Phone: [facility] Comment on above: Iron deficiency anem ia secondary to inadequate dietary iron intake; Other specified intestinal malabsorption Start: 09-28-2020 End: 09-30-2020 Subsequent hospital visit by physician Charley Parker Dr Room [address] [facility] Comment on above: Dyspnea, unspecified type Start: 06-16-2020 End: 06-16-2020 Patient encounter procedure Amena Sanabria Work Phone: [facility] Work Phone: Start: 08-13-2019 End: 08-13-2019 [...] Assay of magnesium Nghia n L Mey [employer] Work Phone: Start: 12-11-2023 Assay of lactate Bozena L Mey [employer] Work Phone: Start: 12-10-2023 Ct abdomen & pelvis w/o contrast material Bozena L Mey [employer] Work Phone: Start: 12-10-2023 End: 12-11-2023 Rhythm ecg 1-3 leads w/interpretation & report Unknown Provider Result Start: 12-10-2023 Blood count complete auto&auto difrntl wbc Bozena L Mey [employer] Work Phone: Start: 12-10-2023 Iadna-dna/rna gi pth gn multiplex probe tq 12-25 Bozena Jordan Mathias [employer]ING [employer] E[employer] Work Phone: Start: 12-10-2023 Assay of lactate [...] Work Phone: Start: 10-09-2023 Assay of ferritin eDl Baldwin MD Work Phone: Start: 10-02-2023 Myocardial spect mul tiple studies Monique Paz MD Work Phone: Start: 09-17-2023 Radex foot complete minimum 3 views Jose Angel Gonzalez DPM Work Phone: Start: 08-21-2023 Radiologic exam ches t single view Russ Manning DO Work Phone: Start: 08-21-2023 End: 08-21-2023 Radex ankle complete minimum 3 views Jorge Sanford MD Start: 08-21-2023 Comprehensive metabo lic panel Russ Manning DO Work Phone: Start: 10-06-2022 Assay of ferritin Del Baldwin MD Work Phone: Start: 05-10-2022 Ecg routine ecg w/le ast 12 lds w/i&r Linette Diaz DO Work Phone: Start: 05-10-2022 Us abdominal real ti me w/image limited Linette Diaz DO Work Phone: Start: 05-02-2022 Iaadiadoo influenza Andra tompkins P Samsa DO Work Phone: Start: 04-28-2022 Comprehensive metabo lic panel Linette Goodrichse DO Work Phone: Start: 04-28-2022 Lipid panel Linette Li sse DO Work Phone: Start: 12-01-2021 Comprehensive metabo lic panel Linette Goodrichse DO Work Phone: Start: 12-01-2021 Lipid panel [...] Work Phone: Start: 09-28-2020 Lipid panel Linette Tran Guillermo sse DO Work Phone: Start: 06-16-2020 Imm. administration COVID19 [employer] Work Phone: Start: 06-16-2020 SARS-CoV-2 vaccine, 0.5ml [employer] Work Phone: Start: 08-13-2019 Assay of ferritin Del Baldwin Work Phone: Start: 08-13-2019 Iron binding capacity A mary ellen Baldwin Work Phone: Start: 08-13-2019 VITAMIN B12 & FOLATE Nito Baldwin Work Phone: Start: 12-26-2018 Blood count complete auto&auto difrntl wbc Linette Diaz Work Phone: Start: 12-26-2018 Comprehensive metabo lic panel Linette Diaz Work Phone: Start: 12-26-2018 Lipid panel Linette munguia Work Phone: Start: 12-26-2018 Hemoglobin glycosylated a1c Krystian Massey Work Phone: Start: 11-22-2018 Assay of ferritin Del Baldwin Work Phone: Start: 11-22-2018 Blood count complete auto&auto difrntl wbc Del Baldwin Work Phone: Start: 11-22-2018 Iron binding capacity A mary ellen Baldwin Work Phone: Start: 11-22-2018 VITAMIN B12 & FOLATE Ad oskar Baldwin Work Phone: Start: 11-01-2010 Colonoscopy Linette figueroa DO Work Phone: Plan of Treatment Date Care Activity Detail Author Start: 07-12-2028 [facility] Start: 01-11-2024 End: 01-11-2024 Patient encounter procedure 01/11/2024 10:20 AM EDT Office Visit [facility] [address] [id number] Monique Paz MD [address] [place] [phone] 3 month [facility] Comment on above: 3 month Start: 12-17-2023 End: 12-11-2024 Basic metabolic 2000 panel - Serum or Plasma Basic Metabolic Panel Lab Routine Septicemia (HCC) Expected: 12/17/2023, Expires: 12/11/2024 [facility] Comment on above: Expected: 12/17/2023, Expires: Start: 12-17-2023 End: 12-11-2024 CBC W Auto Differential panel - Blood CBC with Auto Differential Lab Routine Septicemia (HCC) Expected: 12/17/2023, Expires: 12/11/2024 [facility] Comment on above: Expected: 12/17/2023, Expires: Start: 12-16-2023 End: 12-16-2023 Patient encounter procedure 12/16/2023 2:[address] [facility] (MOB) [address] [place] [address] [facility] ([employer] [facility] [employer]) Comment on above: TY Sevilla P Start: 12-15-2023 End: 12-15-2023 Patient encounter procedure 12/15/2023 2:[address] [facility] (MOB) [address] [place], [place] [phone] Rocephin. Bridget Hall APRN-REINFORCING STEEL ERECTOR [facility] ([employer] [facility] [employer]) Comment on above: Rocephin. LIA HartCN P Start: 12-14-2023 End: 12-14-2023 Patient encounter procedure 12/14/2023 2:[address] [facility] Special[facility] Clinic (MOB) [address] [place] [address] [phone] Rocepbilly. SALOME Hart [facility] ([employer] [facility]) Comment on above: Rocephin. LIA HartCN P Start: 12-13-2023 End: 12-13-2023 Patient encounter procedure 12/13/2023 2:[address] [facility] ([employer] [facility] [employer]) [address] [place] [address] [phone] Rocephitree. Bridget Hall APRN-TIARA [facility] ([employer] [facility] [employer]) Comment on above: TY Sevilla P Start: 11-25-2023 COVID-19 Vaccine ( season) COVID-19 Vaccine ( season) [facility] Start: 10-25-2023 Influenza vaccination Flu vaccine (#1) [facility] Start: 10-17-2023 End: 10-17-2023 Patient encounter procedure 10/17/2023 11:30 AM EDT Office Visit [facility] Part of [address] [address] Del Baldwin MD [address] [place] [address] anemia [facility] Part of [facility] Comment on above: anemia Start: 10-03-2023 End: 10-03-2023 Patient encounter procedure 10/03/2023 1:40 PM EDT Office Visit [facility] Part of [address] [phone] Monique Paz MD [address] [place] [address], [place] [phone] 1 week [facility] Comment on above: 1 week Start: 10-02-2023 End: 10-02-2023 Patient encounter procedure [facility] Comment on above: STAT ADD ON Start: 10-01-2023 End: 10-01-2023 Patient encounter procedure [facility]vasive [facility]iology Comment on above: STAT ADD ON Start: 09-25-2023 End: 09-25-2023 Patient encounter procedure 09/25/2023 9:40 AM EDT Office Visit [facility] [address] [place] [phone] Monique Paz MD [address] [place] [phone] 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 [facility] Comment on above: 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 Start: 09-22-2023 Lipid panel [facility]ids [facility] MARYVALEResonant Vibes [facility] Start: 07-27-2023 Lipid screen Lipid screen [facility] [place] Start: 04-28-2023 Lipid panel [facility] Start: 02-19-2023 Annual Wellness Visit (Medicare) Annual Wellness Visit (Medicare) [facility] Start: 12-01-2022 Lipid panel [facility] Start: 11-24-2022 COVID-19 Vaccine ( season) COVID-19 Vaccine ( season) [facility] Start: 10-24-2022 Influenza vaccination Flu vaccine (#1) [facility] Start: 10-12-2022 End: 10-12-2022 Patient encounter procedure 10/12/2022 Office Visit Gastroenterology Shelia Lomeli MD [address] [place] [id number] [facility] Start: 10-11-2022 End: 10-11-2022 Patient encounter procedure 10/11/2022 Office Visit Oncology Del Baldwin MD [address] [place] [address] [facility] Part [facility] Start: 07-05-2022 Lipid panel Lipids [facility] Start: 03-16-2022 Hemoglobin A1c measurement A1C test (Diabetic or Prediabetic) [facility] Start: 12-16-2021 COVID-19 Vaccine (3 - Booster for Ha series) COVID-19 Vaccine (3 - Booster for Ha series) [facility] Start: 11-24-2021 Influenza vaccination Flu vaccine (#1) [facility] Start: 10-24-2021 Influenza vaccination Flu vaccine (#1) [facility] Start: 10-12-2021 End: 10-12-2021 Patient encounter procedure 10/12/2021 Office Visit Oncology Del Baldwin MD [address] [place] [address] [facility] Start: 10-10-2021 COVID-19 Vaccine (3 - Booster for Ha series) COVID-19 Vaccine (3 - Booster for Ha series) [facility] Start: 09-28-2021 Lipid panel Lipid screen [facility] [place] Start: 02-14-2021 End: 02-14-2021 Patient encounter procedure 02/14/2021 Office Visit Pulmonology Manuel Galo MD [address] [address] [facility] Start: 01-24-2021 Annual Wellness Visit (AWV) Annual Wellness Visit (AWV) [facility] Start: 11-24-2020 Influenza vaccination Flu vaccine (#1) [facility] Start: 11-01-2020 Colon cancer screen colonoscopy Colon cancer screen colonoscopy [place] Start: 11-01-2020 Screening for malignant neoplasm of colon [facility] Start: 10-21-2020 Pneumococcal 65+ years Vaccine (1 of 1 - PPSV23) Pneumococcal 65+ years Vaccine (1 of 1 - PPSV23) [facility] Start: 10-13-2020 End: 10-13-2020 Patient encounter procedure 10/13/2020 Office Visit Oncology Del Baldwin MD [address] [place] [address] [facility] Part of [facility] Start: 08-11-2020 COVID-19 Vaccine (2 - Booster for Ha series) COVID-19 Vaccine (2 - Booster for Ha series) [facility] Start: 12-27-2019 A1C test (Diabetic or Prediabetic) A1C test (Diabetic or Prediabetic) [place] Start: 12-27-2019 HbA1c (Bld) [Mass fraction] A1C test (Diabetic or Prediabetic) [place] Start: 12-27-2019 Hemoglobin A1c measurement A1C test (Diabetic or Prediabetic) [facility] Start: 12-27-2019 Lipid panel Lipid screen [place] Start: 12-27-2019 Lipid screen Lipid [place] Start: 11-25-2019 Influenza vaccination Flu vaccine (Season Ended) [place] Start: 08-20-2019 End: 08-20-2019 Office Visit 08/20/2019 Office Visit Oncology Del Baldwin MD [address] [place] [address] [facility] Part of [facility] Start: 06-06-2019 End: 06-06-2019 Office Visit 06/06/2019 Office Visit Oncology Clint Grossman MD [address] [facility] [address] [place] [address] [phone] [facility] Start: 11-29-2018 End: 11-29-2018 Office Visit 11/29/2018 Office Visit Oncology Del Baldwin MD [address] [facility] [address] [place] [address] [phone] [facility] Start: 11-24-2018 Influenza vaccination Flu vaccine (#1) [place] Start: 10-21-2018 Annual Wellness Visit (AWV) Annual Wellness Visit (AWV) [place] Start: 09-10-2018 Annual Wellness Visit (AWV) Annual Wellness Visit (AWV) [place] Start: 10-21-2010 Screening for osteoporosis DEXA (modify frequency per FRAX score) [facility] Start: 10-21-2005 Breast cancer screen Breast cancer screen [place] Start: 10-21-2005 Screening for malignant neoplasm of breast Breast cancer screen [facility] Start: 10-21-2005 Shingles Vaccine (1 of 2) Shingles Vaccine (1 of 2) [facility] Start: 10-21-2000 Screening for malignant neoplasm of colon [facility] Start: 1995 Screening for malignant neoplasm of breast Breast cancer screen [facility] Start: 10-21-1976 Cervical cancer screen Cervical cancer screen [place] Start: 10-21-1976 Screening for malignant neoplasm of cervix Cervical cancer screen [place] Start: 10-21-1974 DTaP/Tdap/Td vaccine (1 - Tdap) DTaP/Tdap/Td vaccine (1 - Tdap) [facility] Start: 10-21-1973 Hepatitis C screening Hepatitis C screen [facility] Start: 1967 Depression Screen Depression Screen [facility] Start: 1955 Annual Wellness Visit (AWV) Annual Wellness Visit (AWV) [facility] Start: 1955 Hepatitis C screen Hepatitis C screen [place], [place] Start: 1955 Hepatitis C screening Hepatitis C screen [facility] End: 12-14-2023 CBC W Auto Differential panel - Blood CBC auto differential Lab Routine Daily for 5 Days starting 12/10/2023 until 12/14/2023, 3 completed lettrs Comment on above: Daily for 5 Days starting 12/10/2023 unt il 12/14/2023, 3 completed End: 12-14-2023 Comprehensive Metabolic Panel w/ Reflex to MG Comprehensive Metabolic Panel w/ Reflex to MG Lab Routine Daily for 5 Days starting 12/10/2023 until 12/14/2023, 3 completed lettrs Comment on above: Daily for 5 Days starting 12/10/2023 unt il 12/14/2023, 3 completed End: 05-02-2022 COVID-19 [facility] [employer] Work Phone: Comment on above: Once for 1 Occurrences starting 05/02/19 23 until 05/02/2022 DXA Skeletal system.axial Views for bone density [facility] End: 09-25-2023 Extended cardiac holter monitor (3 days-14 day) lettrs Work Phone: Comment on above: 1 Occurrences starting 09/25/2023 until 09/25/2023 End: 12-11-2023 ORGANISM ID W/ [facility] Work Phone: Comment on above: Once for 1 Occurrences starting 12/11/19 24 until 12/11/2023 Oxygen therapy [Minimum Data Set] Initiate Oxygen Therapy Protocol Respiratory Care Routine Daily until discontinued starting 12/10/2023 lettrs Comment on above: Daily until discontinued starting 2023 End: 08-21-2023 Splint application Splint application Procedures Routine One Time for 1 Occurrences starting 08/21/2023 until 08/21/2023 lettrs Comment on above: One Time for 1 Occurrences starting 07/25 until 08/21/2023 US Upper extremity artery - left [facility] Immunizations Immunization Date Immunization Notes Care Provider Ramin khoury 06-16-2020 Hermilo COVID 19 Vaccine [facility] Work Phone: Comment on above: Note: Patient tolera moise well. No signs or symptoms of adverse reactions. Patient waited a minimum of 15 minutes. Payers Date Payer Category Payer Medicare BCBS MEDICARE AN THEM MEDIBLUE ESSENTIAL/PLUS xxxxxxxxxxxx 2019-Present [address] [address] [place] [address] xxxxxxxxxxxx [id number] 2019 Unknown 1 - [employer] are Advantage [id number] [id number] .81061.5.10.6.3 2018 Medicare SUMMACARE-MEDICA RE ADVANTAGE SUMMACARE-MEDICARE ADVANTAGE xxxxxxxxxxx 2018-Present [phone] [address] [place] [address] xxxxxxxxxxx [id number] 1959 Medicare [id number] .7.3.145157.315 1959 Private Health Insurance [id number] 1.2.840.547449.1.13.239.2 .7.3.796095.315 1955 Unknown [id number] 2.840.1.277126.3.579.2 .593 1955 Unknown [id number] 2.16840.1.931163.3.579.2 .173 1955 Unknown [id number] 2.16840.1.974611.3.579.2 .173 1955 Unknown [id number] 2.840.1.728405.3.579.2 .173 1955 Unknown [id number] 2.16840.1.144265.3.579.2 .173 1955 Unknown [id number] 2.16.840.1.376547.3.579.2 .173 1955 Unknown [id number] 2.16.840.1.435356.3.579.2 .173 1955 Unknown [id number] 2.16840.1.703914.3.579.2 .173 1955 Unknown [id number] 2.16840.1.149670.3.579.2 .173 1955 Unknown [id number] 2.16.840.1.057752.3.579.2 .173 1955 Unknown [id number] 2.16.840.1.443122.3.579.2 .173 1955 Unknown [id number] 2.16.840.1.209302.3.579.2 .173 1955 Unknown [id number] 2.16.840.1.599182.3.579.2 .173 1955 Unknown [id number] 2.16.840.1.540413.3.579.2 .173 1955 Unknown [id number] 2.16.840.1.826895.3.579.2 .173 1955 Unknown [id number] 2.16.840.1.855302.3.579.2 .173 1955 Unknown [id number] 2.16.840.1.976502.3.579.2 .173 1955 Unknown [id number] 2.16.840.1.375833.3.579.2 .173 1955 Unknown [id number] 2.16.840.1.560092.3.579.2 .173 1955 Unknown [id number] 2.16.840.1.334939.3.579.2 .173 1955 Unknown [id number] 2.16.840.1.990758.3.579.2 .173 1955 Unknown [id number] 2.16.840.1.996124.3.579.2 .173 1955 Unknown [id number] 2.16.840.1.961601.3.579.2 .173 1955 Unknown [id number] 2.16.840.1.728823.3.579.2 .173 1955 Unknown [id number] 2.16.840.1.664593.3.579.2 .173 Medicare Medicare [id number] Social History Date Type Detail Facility Start: 09-06-2018 End: 09-05-2023 Tobacco smoking status NHIS Former smoker [employer] Start: 09-06-2018 End: 12-13-2023 Alcohol intake No [facility] [employer] Start: 1955 Sex Assigned At Not on file [facility] [employer] KAYLEE Start: 11-29-2018 End: 12-11-2023 Alcohol intake Current non-drinker of alcohol (finding) [employer] [place] Tobacco smoking status Unknown i f ever smoked [facility] Work Phone: Start: 04-08-2020 End: 08-21-2023 Tobacco use and exposure Never used [employer] Start: 09-24-1975 End: 11-24-2009 History of tobacco use Current smoker lettrs Work Phone: Start: 09-24-1975 End: 11-24-2009 History of tobacco use Cigarette Smoker lettrs Start: 02-25-2023 End: 12-13-2023 History of Social function [facility] [email or web address] Has the Process Relations, or [employer] threatened to shut off services in your home in past 12Mo No lettrs (I/We) worried wheth er (my/our) food would run out before (I/we) got money to buy more. Never true lettrs In the past 12 month s, has lack of transportation kept you from medical appointments or from getting medications? No lettrs Start: 1955 Sex Assigned At Female F [facility] How often to you hav e a drink containing alcohol? Never [facility] [employer] Medical Equipment Procedure Code Equipment Code Equipment Origin al Text Equipment Identifier Dates Insulin Syringe-Needle U-100 (Bd Insulin Syringe Ultra-Fine) 0.3 mL 30 gauge x 1/2 syringe Start: 09-17-2023 End: 09-18-2023 Insulin Syringe-Needle U-100 (Bd Insulin Syringe Ultra-Fine) 0.3 mL 30 gauge x 1/2 syringe Start: 09-17-2023 End: 09-18-2023 Clinical Notes 05-10-2022 to 12-14-2023 Discharge InstructionsKayce Sanford RN - 12/12/2023 3:44 PM EDTMKayce raya RN - 12/12/2023 10:01 AM EDKayce Gottlieb RN - 12/12/2023 8:26 AM Kayce Verdugo [...] and declined. documented in this encounter [facility] 12-12-2023 History of Present illness Narrative Discharge instructions reviewed with patient. Peripheral IV's have been removed as well as telemetry. Midline to remain in place at discharge for o/p ATB administration. Care instructions reviewed with patient on care of line and dressing. Will transport home via private vehicle with spouse. asp net programmer called for midline placement. Will return call for ETA ETA is 12:30 pm Per patient she does not take sertraline at home. Medication was not administered per patient request. Bridget GARCIA notified of AM potassium level via lab draw [employer] Reprinting Unit Operator at bedside to complete evening assessment. Upon entry to room, pt awake and in bed, respirations normal and unlabored while on room air. Vitals obtained and assessment completed, see flow sheet for details. Pt denies needs from rewriter at this time. Call light in reach. Care is ongoing. Physical Therapy Facility/Department: [facility] Daily Treatment Note NAME: Natasha Beauchamp : 1955 Date of Service: 12/11/2023 Discharge Recommendations: Continue to assess pending progress, Outpatient PT, Home independently Patient Diagnosis(es): The primary encounter diagnosis was Septicemia (HCC). Diagnoses of TABITHA (acute kidney injury) ([facility]), Diarrhea, unspecified type, and Dehydration were also pertinent to this visit. Assessment Assessment: Pt. ambulated 20ftx4, [id number] with management of IV pole and CGA/SBA [...] 24 Tonya Goff PTA Physical Therapy Facility/Department: [facility] Daily Treatment Note NAME: Natasha [...] Time Individual Concurrent Group Co-treatment Time In 0935 Time Out 0958 Minutes 23 Claudia Dorman [...] or known risk factors. Radiology 2017 http://pubs.rsna.org/doi/full/1 [email or web address] CT CERVICAL SPINE WO CONTRAST Final Result [...] q 24 hours Nutrition status: mild malnutrition Strap Stitcher consult initiated Hospital Prophylaxis: DVT: Lovenox Stress Ulcer: PPI Disposition: Shared decision making: All test results, treatment options and disposition options were discussed with the patient today Social determinants of health that may impact management: none Code status: Full Code Disposition: Discharge plan is pending [facility] Advanced Care Planning documentation: [x] I have [...] the patient's medical record. [DOES NOT SATISFY [facility] PERFORMANCE] Bridget Hall APRN - REINFORCING STEEL ERECTOR , [employer], ZINC PLATE CUTTER-C Hospitalist Medicine 12/11/2023, 6:48 AM Associated attestation - Kalpana Whittington MD - 12/11/2023 3:56 PM EDT Attending Supervising Physician s Attestation Statement I have personally evaluated and examined the patient [id number] in conjunction with the nurse practitioner. I [...] Examined and Reviewed plan of care with ZINC PLATE CUTTER. Directions and discussion about care and plans. [...] patient. Electronically signed by Kalpana Whittington MD [employer]gun Shell Reprinting Unit Operator at bedside to complete evening assessment. Upon entry to room, pt awake and in bed, respirations normal and unlabored while on room air. Vitals obtained and assessment completed, see flow sheet for details. Pt denies needs from rewriter at this time. Call light in reach. Care is ongoing. Physical Therapy Facility/Department: [facility] Physical Therapy Initial Assessment Name: [...] shortened;Left shortened OutComes Score AM-PAC - Mobility [facility] Basic Mobility - Inpatient How much help [...] 3-5 steps with a railing?: A Little [facility] Inpatient Mobility Raw Score : 18 [facility] Inpatient T-Scale Score : 43.63 Mobility [...] Will continue to monitor Occupational Therapy Facility/Department: [facility] Occupational Therapy Initial Assessment Name: [...] to Learning: None Education Outcome: Verbalized understanding [facility] - ADL [facility] Daily Activity - Inpatient How much help [...] How much help for eating meals?: None [facility] Inpatient Daily Activity Raw Score: 19 [facility] Inpatient ADL T-Scale Score : 40.22 ADL Inpatient CMS 0-100% Score: 42.8 ADL Inpatient CMS G-Code Modifier : CK Goals [...] Group Co-treatment Time In 919 Time Out 30 Minutes 10 ABENA Williamson/Jordan Comprehensive Nutrition Assessment Type and Reason for [...] loss Fluid Accumulation: No significant fluid accumulation Medical Care Manager Strength: Not Performed Nutrition Assessment: Altered nutrition [...] Measures: Height: 157.5 cm (5' 2 ) [place] Body Weight (IBW): 110 lbs (50 kg) [...] Used for Energy Requirements: Current Energy (kcal/day): 6058-4644 (25-28/kg) Weight Used for Protein Requirements: Current [...] 10.6* HCT 39.4 32.6* Chemistry: Recent Labs 12/09/237 12/10/23 0545 NA 136 135* K 3.9 3.6* CL 100 107 CO2 19* 16* GLUCOSE 149* 129* BUN 30* 28* CREATININE 2.1* 1.4* CALCIUM 8.9 7.3* Recent Labs 12/09/237 12/10/23 0545 AST 15 17 ALT 15 12 [...] to determine [address], [place] Contact: [phone] Physical Therapy Facility/Department: [facility] Daily Treatment Note NAME: Natasha [...] Chemistry: No results found for: PHART , WMQ2SEI , PO2ART , L4XJWIEO , GBV4PQD , PBEA , NBEA VITALS Pulse: (!) [...] or known risk factors. Radiology 2017 http://pubs.rsna.org/doi/full/1 0.1148/radiol.4282459970 CT CERVICAL SPINE WO CONTRAST Final Result [...] q 24 hours Nutrition status: mild malnutrition Strap Stitcher consult initiated Hospital Prophylaxis: DVT: Lovenox Stress Ulcer: PPI Disposition: Shared decision making: All test results, treatment options and disposition options were discussed with the patient today Social determinants of health that may impact management: none Code status: Full Code Disposition: Discharge plan is pending [facility] Advanced Care Planning documentation: [x] I have [...] the patient's medical record. [DOES NOT SATISFY [facility] PERFORMANCE] Bridget Hall APRN - TIARA , HA, ZINC PLATE CUTTER-[facility] 12/10/2023, 7:15 AM Associated attestation - Sharon Pleitez MD - 12/10/2023 8:13 PM EDT Images from the original note were not included. [address], [address] Attestation Patient: Natasha Beauchamp Date of Admission: 12/09/2023 5:44 PM Hospital Day # 0 Date of Evaluation: 12/10/2023 I personally evaluated and examined the patient [id number] in conjunction with the PA/ZINC PLATE CUTTER and agree with the management and dispostition of the patient. Please see the PA/ZINC PLATE CUTTER's note for full details. My mtz findings [...] 14.1 14.1 PLT 241 191 Recent Labs 12/09/23 18112/10/23 0545 NEUTROABS 4.05 2.35 LYMPHOPCT 9* 11* [...] or known risk factors. Radiology 2017 http://pubs.rsna.org/doi/full/1 0.1148/radiol.7781496784 CT CERVICAL SPINE WO CONTRAST Final Result No acute intracranial abnormality. No acute fracture in the cervical spine. XR CHEST PORTABLE Final Result No acute cardiopulmonary process. ASSESSMENT: Principal Problem: TABITHA (acute kidney injury) (HCC) Active Problems: Diarrhea Sepsis (HCC) Salmonella bacteremia Resolved Problems: * No resolved hospital problems. * PLAN: I agree with the plan as outlined in the ZINC PLATE CUTTER/PA's note Disposition: Discharge plan is pending Please note that this chart was generated using voice recognition [employer] dictation software. Although every effort was made to ensure the accuracy of this automated coverage analyst, some errors in coverage analyst may have occurred. Sharon Pleitez MD 12/10/2023 8:12 PM Pt tachycardic on cardiac/vascular sonographer. Vitals taken, fever of 102 noted at [...] Care ongoing. documented in this encounter [facility] 12-12-2023 Hospital Discharge instructions Cate Flannery RN [...] be sent through Care Everywhere.Renal Failure: Acute (Sammarinese)documented in this encounter [facility] 10-11-2023 Note Left ankle: 1. Overlying [...] Stable sclerosis at the distal 2nd metatarsal. [facility] 10-11-2023 Note Left ankle: 1. Overlying [...] Stable sclerosis at the distal 2nd metatarsal. [facility] 10-01-2023 History of Present illness Narrative Instructed on objectives and procedure of lexiscan/cardiolite stress test. documented in this encounter [facility] 02-26-[address] [address] CONSULTATION PATIENT NAME: NATASHA BEAUCHAMP : 1955 MED REC NO: [id number] ROOM: 0318 ACCOUNT NO: [id number] ADMIT DATE: 02/25/2023 PROVIDER: Kirk Pardo CONSULT [...] anti-inflammatories as needed. KIRK PARDO PH/[id number] Doc#: [id number] [facility] 05-10-2022 History of Present illness Narrative Explained Holter monitor and diary. documented in this encounter HUMAIRA THAKKAR [employer] Phone: Evaluation note Diagnosis Dyspnea, unspecified type documented in this encounter [employer] Phone: evaluation note* Diagnosis Iron deficiency anemia secondary to inadequate dietary iron intake Other specified intestinal malabsorption documented in this encounter [employer] [facility] [employer] Phone: evaluation note* Diagnosis Tachycardia, unspecified documented in this encounter [facility] [employer] Phone: evaluation note* Diagnosis Abnormal results of liver function studies Nonspecific abnormal results of liver function study documented in this encounter [facility] [employer] Phone: evaluation note* Diagnosis Iron deficiency anemia secondary to inadequate dietary iron intake Microcytic anemia Iron deficiency anemia, unspecified documented in this encounter [facility] [employer] note* Diagnosis Fall, initial encounter- Primary Closed fracture of left ankle, initial encounter Dehydration Lightheadedness Dizziness and giddiness Closed fracture of metatarsal bone of left foot, physeal involvement unspecified, unspecified metatarsal, initial encounter documented in this encounter [facility] [employer] note* Diagnosis Onset Date Resolution Status Osteoporosis [facility] Work Phone: Evaluation note* Diagnosis Fractures Closed fracture of unspecified bone documented in this encounter [facility] [employer] note* Diagnosis Lightheadedness Dizziness and giddiness Dizziness Dizziness and giddiness Palpitations SOB (shortness of breath) Shortness of breath Abnormal EKG Nonspecific abnormal electrocardiogram (ECG) (EKG) Former smoker Personal history of tobacco use, presenting hazards to health Family history of premature CAD Family history of ischemic heart disease documented in this encounter [facility] [employer] note* Diagnosis Lightheadedness Dizziness and giddiness Dizziness Dizziness and giddiness Palpitations SOB (shortness of breath) Shortness of breath Abnormal EKG Nonspecific abnormal electrocardiogram (ECG) (EKG) Former smoker Personal history of tobacco use, presenting hazards to health Family history of premature CAD Family history of ischemic heart disease documented in this encounter [facility] [employer] note* Diagnosis Iron deficiency anemia secondary to inadequate dietary iron intake documented in this encounter [facility] [employer] note* Diagnosis Fracture Closed fracture of unspecified bone documented in this encounter [facility] [employer] note* Diagnosis Onset Date Resolution Status Fibromyalgia acute Foot fracture, left acute Osteoporosis acute Pernicious anemia [facility] Work Phone: Evaluation note* Diagnosis TABITHA (acute kidney injury) ([facility])- Primary Acute kidney failure, unspecified Septicemia (HCC) Unspecified septicemia TABITHA (acute kidney injury) ([facility]) Acute kidney failure, unspecified Diarrhea, unspecified type Dehydration Salmonella food poisoning Salmonella gastroenteritis Salmonella bacteremia Salmonella septicemia Diarrhea Sepsis (HCC) Salmonella bacteremia Salmonella septicemia Salmonella food poisoning Salmonella gastroenteritis [facility]* Diagnosis Salmonella bacteremia- Primary Salmonella septicemia Salmonella food poisoning Salmonella gastroenteritis documented in this encounter [facility] note* Diagnosis Onset Date Resolution Status Anxiety acute Fibromyalgia acute Foot fracture, left acute Pernicious anemia acute Left arm swelling acute [facility] Work Phone: Hospital Discharge instructions* Attachments The following attachments cannot be sent through Care Everywhere. * Lightheadedness or Faintness (Sammarinese) * Fall Prevention (Sammarinese) * Dehydration (Sammarinese) * Ankle Fracture (Sammarinese) * Splint or Immobilizer Use (Sammarinese) * Metatarsal Fracture (Sammarinese) [facility]* Treatment Plan and Therapy Plan (Routine) - Open Specialty Diagnoses / Procedures Referred By Guillaume hicks Referred To Contact Diagnoses Salmonella bacteremia Salmonella food poisoning Bridget Hall, [employer] [address] [place] [address] [facility] [address] [place] [address] Referral ID Status Reason Start Date Expiration Date Visits Re quested Visits Authorized [id number] Open 12/12/2023 12/11/2024 1 1 [facility] Assessments Diagnosis Microcytic anemia Iron deficiency anemia, unspecified Diagnosis Microcytic anemia Iron deficiency anemia, unspecified Findings Encounter Date Encounter for Immunization 1st COVID Vaccine kailash Sanabria PharmD 06/16/2020 Advance Directives No Advanced Directives Records FoundDocuments on File Type Date Recorded Patient Door Installer Expl anation Advance Directives and Living Will Power of Locomotive Electrician Documents on File Type Date Recorded Patient Door Installer Expl anation ACP-Advance Directive ACP-Power of Locomotive Electrician Advance Directive Response Recorded Date/ Time Advance Directives No August 29 2:14pm Documents on File Type Date Recorded Patient Door Installer Expl anation ACP-Advance Directive 10/11/2023 11:32 AM Date Activated Date Inactivated Comments 12/10/2023 1:29 AM Healthcare Agents on File Name Relationship Healthcare Agent Damon beyer Communication Sheila Beauchamp Child Primary Decision Maker Documents on File Type Date Recorded Patient Door Installer John quintero ACP-Advance Directive 10/11/2023 11:32 AM Date Activated Date Inactivated Comments 12/10/2023 1:29 AM 12/12/2023 6:44 PM Healthcare Agents on File Name Relationship Healthcare Agent Damon Beauchamp Child Primary Decision Maker Reason for Referral Specialty Diagnoses / Procedures Referred By Contac t Referred To Contact Cardiology Diagnoses Tachycardia, unspecified Procedures Holter Monitor 24 Hour Linette Diaz, [address] [address] Referral ID Status Reason Start Date Expiration Date Visits Re quested Visits Authorized [id number] Closed 05/09/2022 05/09/2023 1 1 Specialty Diagnoses / Procedures Referred By Contac t Referred To Contact Radiology Diagnoses Abnormal results of liver function studies Procedures US LIVER Linette Diaz, [address] [address] Referral ID Status Reason Start Date Expiration Date Visits Re quested Visits Authorized [id number] Closed 05/05/2022 05/05/2023 1 1 Specialty Diagnoses / Procedures Referred By Contac t Referred To Contact Diagnoses Lightheadedness Dizziness Palpitations SOB (shortness of breath) Abnormal EKG Former smoker Family history of premature CAD Procedures Extended cardiac holter monitor (3 days-14 day) ND EXTERNAL ECG REC>48HR<7D REVIEW & INTERPRETATION ND EXTERNAL ECG REC>48HR<7D RECORDING ND EXTERNAL ECG REC>7D<15D RECORDING ND EXTERNAL ECG REC>7D<15D REVIEW & INTERPRETATION Monique Paz MD [address] [place] [address] [place] [address] Referral ID Status Reason Start Date Expiration Date V isits Requested Visits Authorized [id number] Not Required - RTA 09/25/2023 09/24/2024 1 1 Specialty Diagnoses / Procedures Referred By Contac t Referred To Contact Diagnoses Lightheadedness Dizziness Palpitations SOB (shortness of breath) Abnormal EKG Former smoker Family history of premature CAD Procedures Nuclear stress test with myocardial perfusion Monique Paz MD [address] [place] [address] [place] [address] Referral ID Status Reason Start Date Expiration Date Visits Re quested Visits Authorized [id number] Open 09/25/2023 09/24/2024 3 3 Instructions Instructions [...] Care Teams (unrecognized sec tion and content) Lathmaker Relationship Specialty Start Date End Date Linette Diaz, DO [address] [place] [phone] PCP - General Family Medicine 07/26/18 Lathmaker Relationship Specialty Start Date End Date Linette Diaz, DO [address] [place] [phone] PCP - General Family Medicine 07/26/18 Lathmaker Relationship Specialty Start Date End Date Linette Diaz, DO [address] [place] [address], [place] [address] PCP - General Family Medicine 07/26/18 Lathmaker Relationship Specialty Start Date End Date Linette Diaz, DO [address] [place] [phone] PCP - General Family Medicine 07/26/18 Lathmaker Relationship Specialty Start Date End Date Linette Diaz, DO [address] [place] [address], [place] [address] PCP - General Family Medicine 07/26/18 Lathmaker Relationship Specialty Start Date End Date Linette Diaz, [address] [place] [address] PCP - General Family Medicine 07/26/18 Lathmaker Relationship Specialty Start Date End Date Linette Diaz DO [address] [place] [address], [place] [address] PCP - General Family Medicine 07/26/18 Team Status: Active Member Role Status Dates Rick Amin MD Primary Care Provider Active Team Status: Inactive Member Role Status Dates Rick Amin MD Primary Care Provide r, Attending Provider Active Start: September 05, 2023 End: September 05, 2023 Lathmaker Relationship Specialty Start Date End Date Rick Amin MD [address] [facility] [place] [address] PCP - General Family Medicine 09/17/23 Lathmaker Relationship Specialty Start Date End Date Rick Amin MD [address] [facility] [place] [address] PCP - General Family Medicine 09/17/23 Lathmaker Relationship Specialty Start Date End Date Rick Amin MD [address] [facility] [place] [address] PCP - General Family Medicine 09/17/23 Lathmaker Relationship Specialty Start Date End Date Rick Amin MD [address] [facility] [place] [address] PCP - General Family Medicine 09/17/23 Lathmaker Relationship Specialty Start Date End Date Rick Amin MD [address] [facility] [place] [address] PCP - General Family Medicine 09/17/23 Lathmaker Relationship Specialty Start Date End Date Rick Amin MD [address] [facility] [place] [address] PCP - General Family Medicine 09/17/23 Team Status: Inactive Member Role Status Dates Rick Amin MD Primary Care Provide r, Attending Provider Active Start: November 30, 2023 End: November 30, 2023 Lathmaker Relationship Specialty Start Date End Date Rick Amin MD [address] [facility] [place] [address] PCP - General Family Medicine 09/17/23 Lathmaker Relationship Specialty Start Date End Date Rick Amin MD [address] [facility] [place] [address] PCP - General Family Medicine 09/17/23 Team Status: Inactive Member Role Status Dates Rick Amin MD Primary Care Provide r, Attending Provider Active Start: December 17, 2023 End: December 17, 2023 INFORMATION SOURCE (unrecogn ized section and content) DATE CREATED AUTHOR 04/16/2021 [facility] DATE CREATED AUTHOR AUTHOR'S ORGANIZ ATION 12/24/2023 [facility] Reason for Visit (unrecogniz ed section and content) Specialty Diagnoses / Procedures Referred By Guillaume t Referred To Contact Cardiology Diagnoses Tachycardia, unspecified Procedures Holter Monitor 24 Hour Linette Diaz, DO [address] [place] [address] Referral ID Status Reason Start Date Expiration Date Visits Re quested Visits Authorized [id number] Closed 05/09/2022 05/09/2023 1 1 Specialty Diagnoses / Procedures Referred By Guillaume t Referred To Contact Radiology Diagnoses Abnormal results of liver function studies Procedures US LIVER Linette Diaz, DO [address] [place] [address] Referral ID Status Reason Start Date Expiration Date Visits Re quested Visits Authorized [id number] Closed 05/05/2022 05/05/2023 1 1 Reason Comments [...] Extended cardiac holter monitor (3 days-14 day) ND EXTERNAL ECG REC>48HR<7D REVIEW & INTERPRETATION ND EXTERNAL ECG REC>48HR<7D RECORDING ND EXTERNAL ECG REC>7D<15D RECORDING ND EXTERNAL ECG REC>7D<15D REVIEW & INTERPRETATION Monique Paz MD [address] [place] [address] [place] [address] Referral ID Status Reason Start Date Expiration Date V isits Requested Visits Authorized [id number] Not Required - RTA 09/25/2023 09/24/2024 1 1 Specialty Diagnoses / Procedures Referred By Guillaume t Referred To Contact Diagnoses Lightheadedness Dizziness Palpitations SOB (shortness of breath) Abnormal EKG Former smoker Family history of premature CAD Procedures Nuclear stress test with myocardial perfusion Monique Paz MD [address] [place] [address] [place] [address] Referral ID Status Reason Start Date Expiration Date Visits Re quested Visits Authorized [id number] Open 09/25/2023 09/24/2024 3 3 Reason Comments [...] sodium chloride 0.9 % 50 mL IVPB (Nrzb4Sbf) 2,000 mg, IntraVENous, EVERY 24 HOURS, First dose on Sun12/10/23 at 1600, Until Discontinued, Antimicrobial Indications: Bloodstream Infection 1601 (New Bag - Provider: Tee Costello)1648 (Stopped - Provider: Tee Costello) 1526 (New Bag - Provider: Vanda Archibald RN)1601 (Stopped - Provider: Vanda Archibald, RN) 1455 (New Bag - Provider: Kayce Sanford RN)1525 (Stopped - Provider: Kayce Sanford RN) cyclobenzaprine (FLEXERIL) tablet 10 mg 10 mg, Oral, DAILY, First dose on Sun12/10/23 at 0900, Until Discontinued 957 (Given - Provider: Tee Costello) 2018 (Given - Provider: Juana Nguyen RN) 2099 (Due - Provider: Tyra Ruth [facility]) DULoxetine (CYMBALTA) extended release capsule 20 mg 20 mg, Oral, DAILY, First dose on Sun12/10/23 at 0900, Until Discontinued, Do not crush or break. May add contents of capsule to apple juice or apple sauce, but not chocolate. 958 (Given - Provider: Tee Costello) 2018 (Given - Provider: Juana Nguyen RN) 2099 (Due - Provider: Tyra Ruth [facility]) enoxaparin Sodium (LOVENOX) injection 30 mg 30 [...] refused) 2099 (Due - Provider: Elodia Huggins [facility]) pantoprazole (PROTONIX) 40 mg in sodium chloride [...] sodium chloride 0.9 % 50 mL IVPB (Fiuc0Wpf) (CANCELED) 3,375 mg, IntraVENous, EVERY 8 HOURS, [...] on Sun12/10/23 at 0900, Until Discontinued 958 (Given - Provider: Tee Costello)222 (Not Given - Provider: Juana Nguyen RN - Reason: IV Fluid Infusing) 08 (Not Given - Provider: Vanda Archibald RN - Reason: IV Fluid Infusing)2030 (Not Given - Provider: Juana Nguyen RN - Reason: IV Fluid Infusing) 08 (Given - Provider: Kayce Sanford, AKIKO)2100 (Due) tiotropium-olodaterol (STIOLTO) 2.5-2.5 MCG/ACT inhaler 2 puff 2 puff, Inhalation, DAILY, First dose on Sun12/10/23 at 0900, Until Discontinued, Substituted for Umeclidinium-Vilanterol (ANORO ELLIPTA). 0937 (Given - Provider: Virginie Avitia RCP) 0755 (Given - Provider: Mami Steward MANAGER ASSESSMENT) 1008 (Given - Provider: Lia Luz MANAGER ASSESSMENT) Continuous Medication Order 12/10/2023 12/11/2023 12/12/2023 0.9 [...] Costello) 0115 (New Bag - Provider: Juana Nguyen RN)1957 (New Bag - Provider: Dilia Byrne, AKIKO) 0445 (New Bag - Provider: Dilia Byrne, AKIKO)1412 (Stopped - Provider: Kayce Sanford, RN) PRN Medication Order 12/10/2023 12/11/2023 12/12/2023 0.9 [...] Vanda Archibald, RN)1735 (Given - Provider: Vanda Archibald RN)2237 (Given - Provider: Maricel Jay RN) [...] BE BASED ON THE PRIMARY CLINICAL RECORDS. [employer] provides no warranty or guarantee of the accuracy or completeness of information in this document.
[2024-01-14 09:21] LABS: Basophils Absolute Auto 0.1 10^3/uL (0.0-0.1); Basophils Percent Auto 2.3 % (0.2-2.0); Eosinophils Absolute Auto 0.6 10^3/uL (0.0-0.7); Eosinophils Percent Auto 10.5 % (0.9-7.0); Hematocrit 36.3 % (36.0-48.0); Hemoglobin 11.5 g/dL (12.0-16.0); Immature Granulocytes Abs Auto 0.01 10^3/uL (0.00-0.03); Immature Granulocytes Pct Auto 0.2 % (0.0-0.5); Lymphocytes Absolute Auto 1.5 10^3/uL (1.2-3.8); Lymphocytes Percent Auto 26.8 % (20.5-60.0); Mean Corpuscular HGB Conc 31.7 g/dL (29.9-35.2); Mean Corpuscular Hemoglobin 29.6 pg (26.7-34.0); Mean Corpuscular Volume 93.3 fL (81.0-99.0); Mean Platelet Volume 9.8 fL (9.5-13.5); Monocytes Absolute Auto 0.6 10^3/uL (0.3-0.8); Monocytes Percent Auto 11.2 % (1.7-12.0); Neutrophils Absolute Auto 2.7 10^3/uL (1.4-6.5); Platelet Count 329 10^3/uL (150-450); Red Blood Count 3.89 10^6/uL (4.20-5.40); Red Cell Distribution Width 13.5 % (11.0-15.0); White Blood Count 5.6 10^3/uL (4.0-11.0)
--- NOTE | 2024-01-14 09:32 | CT_ITS ---
The [address] [address] Patient Name: NATASHA BUNN MRN: [id number] date: 1955 Sex: F Assigned Patient Location: CT Current Patient Location: RAD Accession/Order Number: [id number] Exam Date: 01/14/2024 09:26 Report Date: 01/15/2024 15:30 At the request of: BERLIN DERAS Procedure: CT lung screening low-dose EXAMINATION: CT lung screening low-dose HISTORY: Nicotine Dependence COMPARISON: 11/17/2022 TECHNIQUE: Axial, Coronal, and Sagittal images were created without the administration of IV contrast material. Dose reduction techniques were achieved by using automated exposure control and/or adjustment of mA and/or kV according to patient size and/or use of iterative reconstruction technique. FINDINGS: LUNGS: Biapical patchy parenchymal infiltrates, pleural parenchymal scarring is favored. Scattered subcentimeter pulmonary nodules appear stable from the prior exam the largest area is a groundglass attenuation measuring 5 mm right lower lobe axial image #73. The previously identified nodular densities in the superior segment of the left lower lobe have nearly resolved PLEURA: No mass, effusion, or pneumothorax. VASCULATURE: No abnormality. MIKE: No mass or pathologic adenopathy. MEDIASTINUM: No mass or pathologic adenopathy. CARDIAC: No enlargement or pericardial effusion CORONARY ARTERIES: Coronary calcifications are mild. AORTA: No aneurysm. Mild to moderate calcific atherosclerosis CHEST WALL: No mass or axillary adenopathy BONES: No bone lesion or fracture. LIMITED ABDOMEN: No suspicious findings. Limited images of the upper abdomen. OTHER: Negative. CT/CT lung screening low-dose IMPRESSION: LUNG SCREENING: Lung-RADS Category 2- Benign Appearance or Behavior. Nodules with a very low likelihood of becoming a clinically active cancer due to size or lack of growth. 2. Continue annual screening with LDCT in 12 months. Electronically authenticated by: SRAVANI SAWYER Date: 01/15/2024 15:30
[2024-01-15 04:08] LABS: Immunoglobulin A, Qn 149 mg/dL (87-352); Immunoglobulin M, Q 168 mg/dL (26-217)
[2024-01-15 14:10] LABS: IgG, Subclass 1 507 mg/dL (248-810); IgG, Subclass 2 130 mg/dL (130-555); IgG, Subclass 3 20 mg/dL (15-102); IgG, Subclass 4 46 mg/dL (2-96); Immunoglobulin G, Qn, Serum 811 mg/dL (586-1602)
[2024-01-17 10:13] LABS: Immunoglobulin E, Total 1012 IU/mL (6-495)
== END 2024-01-14 08:50 | disposition home or self-care (01) ==
LOC: CT 08:49
PROVIDERS: PCP Family Medicine; Visit Provider Internal Medicine
DX: J98.8 Other specified respiratory disorders (principal); Z87.891 Personal history of nicotine dependence; Z12.2 Encounter for screening for malignant neoplasm of respiratory organs
CPT/HCPCS: 36415; 71271; 82784; 82785; 82787; 85025; 86317

== ENCOUNTER 2024-01-15 09:30 | Outpatient (OUT) | payer MEDICARE, SELFPAY ==
--- NOTE | 2024-01-15 | XR_ITS ---
The [address] [address] Patient Name: NATASHA BUNN MRN: [id number] date: 1955 Sex: F Assigned Patient Location: RAD Current Patient Location: RAD Accession/Order Number: [id number] Exam Date: 01/15/2024 09:47 Report Date: 01/15/2024 14:01 At the request of: LETTY FRAZIER Procedure: XR ankle LT min 3V PROCEDURE: XR foot LT min 3V, XR ankle LT min 3V COMPARISON: 11/28/2023 HISTORY: LEFT FOOT PAIN FINDINGS: BONES:Lucency through the distal fibula consistent with a subacute/chronic fracture with incomplete bony bridging. Focal sclerosis identified along the neck of the second metatarsal with a narrow zone of transition. No cortical breakthrough or periosteal reaction, nonspecific but stable sclerosis along the base of the second and third metatarsals consistent with remote healed fractures SOFT TISSUES:Negative. No visible soft tissue swelling. EFFUSION:None visible. OTHER: Negative. XR/XR ankle LT min 3V IMPRESSION: Incomplete bony bridging of the lateral malleolus fracture Healed fractures base of the second and third metatarsals Electronically authenticated by: SRAVANI SAWYER Date: 01/15/2024 14:01
--- NOTE | 2024-01-15 | XR_ITS ---
The [address] [address] Patient Name: NATASHA BUNN MRN: [id number] date: 1955 Sex: F Assigned Patient Location: RAD Current Patient Location: RAD Accession/Order Number: [id number] Exam Date: 01/15/2024 09:38 Report Date: 01/15/2024 14:01 At the request of: LETTY FRAZIER Procedure: XR foot LT min 3V PROCEDURE: XR foot LT min 3V, XR ankle LT min 3V COMPARISON: 11/28/2023 HISTORY: LEFT FOOT PAIN FINDINGS: BONES:Lucency through the distal fibula consistent with a subacute/chronic fracture with incomplete bony bridging. Focal sclerosis identified along the neck of the second metatarsal with a narrow zone of transition. No cortical breakthrough or periosteal reaction, nonspecific but stable sclerosis along the base of the second and third metatarsals consistent with remote healed fractures SOFT TISSUES:Negative. No visible soft tissue swelling. EFFUSION:None visible. OTHER: Negative. XR/XR foot LT min 3V IMPRESSION: Incomplete bony bridging of the lateral malleolus fracture Healed fractures base of the second and third metatarsals Electronically authenticated by: SRAVANI SAWYER Date: 01/15/2024 14:01
== END 2024-01-15 09:31 | disposition home or self-care (01) ==
LOC: RAD 09:30
PROVIDERS: PCP Family Medicine; Visit Provider Podiatrist Foot & Ankle Surgery
DX: M25.572 Pain in left ankle and joints of left foot (principal); M79.672 Pain in left foot; S92.325D Nondisplaced fracture of second metatarsal bone, left foot, subsequent encounter for fracture with routine healing; S92.335D Nondisplaced fracture of third metatarsal bone, left foot, subsequent encounter for fracture with routine healing; S82.65XG Nondisplaced fracture of lateral malleolus of left fibula, subsequent encounter for closed fracture with delayed healing
CPT/HCPCS: 73610; 73630